=== PATIENT | male | born 1965 | race Caucasian/White ===

== ENCOUNTER 2016-09-13 18:47 | Emergency (ER) | payer BC, OTHER ==
[~2016-09-13] VITALS: Ht 177.8 cm; Wt 99.1 kg
[2016-09-13 18:56] VITALS: TEMP 36.6; Ht 177.8 cm; Wt 99.1 kg
[2016-09-13] MEDS ORDERED: SODIUM CHLORIDE 0.9% 1000ML 1,000 ML IV SCH (19:09)
[2016-09-13] MEDS ORDERED: LABETALOL HCL IV 5 MG/ML 20ML IV STA ×2 (19:09→21:23)
[2016-09-13 19:18] LABS: BASO % 0.6 %; BASO ABS # 0.05 K/uL (0-0.2); COMPLETE YES; EOS % 1.5 %; IG% 0.1 %; LYMPH % 21.6 %; LYMPH ABS # 1.69 K/uL (1.2-3.4); MEAN CELL VOLUME 95.6 fL (80-100); MEAN CORPUSCULAR HEMOGLOBIN 34.4 pg (25-34); MEAN PLATELET VOLUME 9.6 fL (7.4-10.4); MONO % 10.8 %; NEUT % 65.4 %; PLATELET COUNT 229 K/uL (130-400); WHITE BLOOD COUNT 7.81 K/uL (4.8-10.8)
--- NOTE | 2016-09-13 19:24 | EMERGENCY ROOM VISIT NOTE ---
History Report prepared by Jeanette: Dileep Calvillo Under the Supervision of: Dr. Bouchra Hook M.D. First contact with patient: 19:04 Chief Complaint: STROKE SYMPTOMS Stated Complaint: RIGHT LEG WEAKNESS,SLURRED SPEECH Nursing Triage Summary: Patient came from work eating dinner and tried to get up and right leg gave out. left facial droop noted .Last well time 1720. History of Present Illness The patient is a 51 year old male who presents to the Emergency Room with complaints of sudden stroke-like symptoms beginning an hour and a half prior to arrival. As per , the patient had just gotten home from work and was eating dinner. She states that when the patient tried to get up, his right leg gave out and she noticed slurred speech and a left facial droop at 1720. The notes the patient appeared to be fine during the meal. She notes that the patient does appear to be improving slowly. The patient denies a headache. Source of History: patient Onset: hour and a half prior to arrival (1720) Position: other (global) Quality: other (stroke-like symptoms) Timing: other (sudden) Associated Symptoms: No headache Note: Associated symptoms: slurred speech, left facial droop. Review of Systems See HPI for pertinent positives & negatives. A total of 10 systems reviewed and were otherwise negative. Past Medical & Surgical Medical Problems: (1) No pertinent past medical history Family History Diabetes mellitus Hypertension Social History Smoking Status: Never Smoker Marital Status: Occupation Status: employed Current/Historical Medications Scheduled Aspirin (Aspirin Ec), 81 MG PO DAILY Losartan Potassium (Cozaar), 50 MG PO DAILY Multivitamins/Minerals (Mvi With Minerals), 1 TAB PO DAILY Allergies Uncoded Allergies: ASA--NOSE BLEEDS (Allergy, Unknown, 12/18/04) Physical Exam Vital Signs Date Time Temp Pulse Resp B/P Pulse Ox O2 Delivery O2 Flow Rate FiO2 09/13/16 22:45 83 22 168/98 95 09/13/16 22:30 168/98 09/13/16 22:20 82 22 94 Room Air 09/13/16 22:15 163/96 09/13/16 22:05 77 15 95 09/13/16 22:04 163/99 09/13/16 22:00 164/105 09/13/16 21:59 168/102 09/13/16 21:50 81 22 95 4/11/17 21:45 82 26 179/98 93 Room Air 09/13/16 21:36 87 27 94 Room Air 09/13/16 21:30 156/77 09/13/16 21:23 162/97 09/13/16 21:21 92 28 168/109 94 09/13/16 21:15 161/113 09/13/16 21:06 88 19 93 09/13/16 21:01 85 20 169/86 93 Room Air 09/13/16 20:51 170/98 09/13/16 20:50 92 20 94 09/13/16 20:47 176/111 09/13/16 20:45 167/100 09/13/16 20:35 90 26 152/96 09/13/16 20:24 181/108 09/13/16 20:20 91 20 93 09/13/16 20:15 90 22 163/97 94 Room Air 09/13/16 20:00 91 20 150/111 94 09/13/16 19:45 92 18 162/78 94 09/13/16 19:30 92 12 163/94 95 09/13/16 19:27 94 Room Air 09/13/16 19:22 162/87 09/13/16 19:05 95 09/13/16 18:56 36.6 99 16 191/115 94 Room Air Physical Exam Vital signs reviewed. General: Well-appearing male, in no significant distress. HEENT: Mild left nasolabial fold flattening. Deviation of the tongue to the right. No scleral icterus, PERRLA, neck supple. Atraumatic. Cardiovascular: Regular rate and rhythm, no extra sounds. Pulmonary: Clear to auscultation bilaterally, normal work of breathing. Abdomen: Soft, nontender, nondistended, positive bowel sounds. Musculoskeletal: Atraumatic, no peripheral edema. Neurologic: Patient awake alert and oriented x 3, full strength in all 4 extremities. Cranial nerves 2 through 12 grossly intact. Skin: Warm, dry, no rash Medical Decision & Procedures ER Provider Diagnostic Interpretation: Radiology results as stated below per my review and radiologist interpretation: HEAD CT NONCONTRAST CT DOSE: 614.27 mGy.cm HISTORY: Right leg weakness. Slurred speech. Stroke TECHNIQUE: Multiaxial CT images of the head were performed without the use of intravenous contrast. Automated exposure control was utilized for this study. Comparison: None. Findings: The paranasal sinuses and mastoid air cells are clear. The calvarium and skull base are intact. The ventricles and sulci are within normal limits. There is no hematoma, midline shift, or acute infarct. A 1.3 cm dural calcification within the right frontal lobe may represent a calcified meningioma. Impression: No acute intracranial abnormality. Electronically signed by: Keegan Galo M.D. 09/13/2016 7:29 PM CHEST ONE VIEW PORTABLE HISTORY: Slurred speech. Stroke COMPARISON: None. FINDINGS: The lungs are clear. Cardiac silhouette is normal in size. No pleural effusions. No pneumothorax. IMPRESSION: No acute process. Electronically signed by: Keegan Galo M.D. 09/13/2016 7:57 PM HEAD CTA HISTORY: Right leg weakness. Slurred speech. TECHNIQUE: Multiaxial CT images of the head were performed after the intravenous administration of contrast to evaluate the major cerebral vessels. Maximum intensity projection images were also obtained. COMPARISON: Head CT 09/13/2016. FINDINGS: No midline shift or acute hemorrhage identified. Stable 1.3 cm right frontal dural calcification. The calvarium and skull base are intact. Paranasal sinuses and mastoid air cells are clear. The cervical portion of the distal right internal carotid artery is occluded. There is reconstitution of flow within the petrous segment of the right internal carotid artery which demonstrates diminished flow. There is significant diminished flow within the right carotid siphon. There is an abrupt cut off within the superior branch of the right M2 segment of the right MCA. This is best seen on image 126. This is consistent with occlusion of the right M2 segment. The bilateral ACAs, left MCA, bilateral fermenter wine, basilar artery, distal vertebral arteries, and left internal carotid artery are patent. There is mild calcified plaque within the left internal carotid artery. IMPRESSION: 1. The cervical portion of the distal right internal carotid artery is occluded. There is reconstitution of flow within the petrous segment of the right internal carotid artery. However, there is diminished flow within the right intracranial internal carotid artery and the right MCA. 2. There is also complete occlusion of the superior branch of the right MCA just beyond the right MCA bifurcation. Electronically signed by: Keegan Galo M.D. 09/13/2016 8:45 PM Laboratory Results 09/13/16 19:04 Red Blood Count 4.50, Mean Corpuscular Volume 95.6, Mean Corpuscular Hemoglobin 34.4, Mean Corpuscular Hemoglobin Concent 36.0, Mean Platelet Volume 9.6, Neutrophils (%) (Auto) 65.4, Lymphocytes (%) (Auto) 21.6, Monocytes (%) (Auto) 10.8, Eosinophils (%) (Auto) 1.5, Basophils (%) (Auto) 0.6, Neutrophils # (Auto ) 5.10, Lymphocytes # (Auto) 1.69, Monocytes # (Auto) 0.84, Eosinophils # (Auto ) 0.12, Basophils # (Auto) 0.05 09/13/16 19:04 Test 09/13/16 19:04 09/13/16 19:06 09/13/16 21:45 White Blood Count 7.81 K/uL (4.8-10.8) Red Blood Count 4.50 M/uL (4.7-6.1) Hemoglobin 15.5 g/dL (14.0-18.0) Hematocrit 43.0 % (42-52) Mean Corpuscular Volume 95.6 fL (80-100) Mean Corpuscular Hemoglobin 34.4 pg (25-34) Mean Corpuscular Hemoglobin Concent 36.0 g/dl (32-36) Platelet Count 229 K/uL (130-400) Mean Platelet Volume 9.6 fL (7.4-10.4) Neutrophils (%) (Auto) 65.4 % Lymphocytes (%) (Auto) 21.6 % Monocytes (%) (Auto) 10.8 % Eosinophils (%) (Auto) 1.5 % Basophils (%) (Auto) 0.6 % Neutrophils # (Auto) 5.10 K/uL (1.4-6.5) Lymphocytes # (Auto) 1.69 K/uL (1.2-3.4) Monocytes # (Auto) 0.84 K/uL (0.11-0.59) Eosinophils # (Auto) 0.12 K/uL (0-0.5) Basophils # (Auto) 0.05 K/uL (0-0.2) RDW Standard Deviation 44.0 fL (36.4-46.3) RDW Coefficient of Variation 12.7 % (11.5-14.5) Immature Granulocyte % (Auto) 0.1 % Immature Granulocyte # (Auto) 0.01 K/uL (0.00-0.02) Prothrombin Time 11.0 SECONDS (9.0-12.0) Prothromb Time International Ratio 1.0 (0.9-1.1) Activated Partial Thromboplast Time 32.2 SECONDS (21.0-31.0) Partial Thromboplastin Ratio 1.2 Anion Gap 6.0 mmol/L (3-11) Est Creatinine Clear Calc Drug Dose 94.8 ml/min Estimated GFR () 90.2 Estimated GFR (Non- 77.9 BUN/Creatinine Ratio 18.4 (10-20) Bedside Glucose 95 mg/dl (70-99) Calcium Level 9.7 mg/dl (8.5-10.1) Total Creatine Kinase 212 U/L (39-308) Creatine Kinase MB 2.0 ng/ml (0.5-3.6) Creatine Kinase MB Ratio 0.9 (0-3.0) Troponin I < 0.015 ng/ml (0-0.045) Bedside Prothrombin Time INR 1.0 (0.9-1.1) Urine Opiates Screen NEG (NEG) Urine Methadone, Qualitative NEG (NEG) Urine Barbiturates NEG (NEG) Urine Phencyclidine (PCP) Level NEG (NEG) Ur Amphetamine/Methamphetamine NEG (NEG) MDMA (Ecstasy) Screen NEG (NEG) Urine Benzodiazepines Screen NEG (NEG) Urine Cocaine Metabolite NEG (NEG) Urine Marijuana (THC) NEG (NEG) Laboratory results per my review. Medications Administered Medications (Trade) Dose Ordered Sig/Jluis Route Start Time Stop Time Status Last Admin Dose Admin Sodium Chloride (Nss 1000ml) 1,000 ml @ 100 mls/hr Q10H IV 09/13/16 19:09 09/13/16 23:46 DC 09/13/16 19:36 100 MLS/HR Labetalol HCl 10 mg 10 mg NOW STAT IV 09/13/16 19:09 09/13/16 19:12 DC 09/13/16 20:53 10 MG Alteplase, Recombinant 81 mg/ Empty Bag 81 ml @ 81 mls/hr TODAY@2130 ONCE IV 09/13/16 21:30 09/13/16 22:29 DC 09/13/16 21:38 81 MLS/HR Alteplase, Recombinant/ Syringe (Activase Inj/ Syringe) 9 ml @ 9 mls/min TODAY@2124 ONCE IV 09/13/16 21:25 09/13/16 21:26 DC 09/13/16 21:37 9 MLS/MIN Labetalol HCl (Normodyne IV) 10 mg NOW STAT IV 09/13/16 21:23 09/13/16 21:24 DC 09/13/16 21:26 10 MG ECG Indication: other (stroke-like symptoms) Rate (beats per minute): 93 Rhythm: normal sinus Findings: no acute ischemic change, no ectopy ED Course 1902: Past medical records reviewed. The patient was evaluated in room A1. A complete history and physical examination was performed. 1908: Ordered Labetalol HCl 10 mg IV, Sodium Chloride 1,000 ml @ 100 mls/hr IV. 2022: Reevaluated the patient at this time, and he had left nasolabial fold flattening, left arm and leg weakness, and left medical editor weakness. His tongue was more midline. The nurse noted a normal neuro exam approximately thirty minutes ago. 2027: I spoke to Dr. Franklin, [facility] about the patient's case, and he states he will evaluate the patient via Telestroke when he gets back from his CTA scan. 2122: Ordered Normodyne IV 10 mg IV. 2124: Ordered Alteplase Recombinant 9 mg/ Syringe 9 ml @ 9 mls/min IV. 2129: Ordered Alteplase, Recombinant 81 mg/ Empty Bag 81 ml @ 81 mls/hr IV. 2131: I spoke to Dr. Franklin, [facility] about the patient's case, and he recommended TPA and will accept the patient for transfer. It is noted Shawn Gipson is on the way for transfer of the patient to [place]. 2205: Reevaluated and updated the patient and his at this time. Medical Decision Differential diagnosis: Etiologies such as metabolic, infection, hypo/hyperglycemia, electrolyte abnormalities, cardiac sources, intracerebral event, toxicologic, neurologic, as well as others were entertained. This patient was evaluated and appeared to be in some discomfort. IV access was obtained and laboratory work was drawn. On physical exam the patient's symptoms seem to be resolving initially. He had a mild left nasolabial fold flattening. A CT scan of the head was performed and is negative. Patient was hydrated with normal saline solution. At approximately 6 PM the patient's nurse performed a stroke scale that was similar to his initial exam. At 6:30 PM I reevaluated the patient and his right-sided gaze preference became profound. He had extensive left-sided facial droop, weakness and ataxia of the left upper extremity and left lower extremity. Patient was sent back over to CT for a CT angiogram. This study is read as above with extensive clot. Dr. Franklin of neurology. He has reviewed the imaging and examined the patient via WebCam. TPA was recommended and administered after the pros and cons were discussed. The patient did have improvement in his symptoms. He has been life flighted to [facility] for further care. The patient are aware of the findings and plan. They have agreed. Consults Time Called: 2023 Consulting Physician: [facility] Returned Call: 2027 I spoke to [facility] about the patient's case, and he states he will evaluate the patient via Telestroke when he gets back from his CTA scan. Impression Primary Impression: Acute CVA (cerebrovascular accident) Critical Care I have personally spent greater than 75 minutes of critical care time in the direct management of this patient. This includes bedside care, interpretation of diagnostic studies, and testing, discussion with consultants, patient, and family members, and other required patient management activities. This 75 minutes is in excess of all separately billable procedures. Scribe Attestation The scribe's documentation has been prepared under my direction and personally reviewed by me in its entirety. I confirm that the note above accurately reflects all work, treatment, procedures, and medical decision making performed by me. Departure Information Dispostion Transfer Acute Care Facility (Dr. Franklin [facility]) Stroke History Time Last Known Well 1720 on 09/13/2016 Stroke t-PA Criteria Reviewed Meets criteria for t-PA
[2016-09-13 19:27] VITALS: O2SAT 94
--- NOTE | 2016-09-13 19:31 | DIAGNOSTIC IMAGING REPORT ---
HEAD CT NONCONTRAST CT DOSE: 614.27 mGy.cm HISTORY: Right leg weakness. Slurred speech. Stroke TECHNIQUE: Multiaxial CT images of the head were performed without the use of intravenous contrast. Automated exposure control was utilized for this study. Comparison: None. Findings: The paranasal sinuses and mastoid air cells are clear. The calvarium and skull base are intact. The ventricles and sulci are within normal limits. There is no hematoma, midline shift, or acute infarct. A 1.3 cm dural calcification within the right frontal lobe may represent a calcified meningioma. Impression: No acute intracranial abnormality. Electronically signed by: Keegan Galo M.D. 09/13/2016 7:29 PM Dictated Date/Time: 09/13/2016 7:26 PM
[2016-09-13 19:34] LABS: BLOOD UREA NITROGEN 20 mg/dl (7-18); BUN/CREATININE RATIO 18.4 (10-20); CALCIUM 9.7 mg/dl (8.5-10.1); CARBON DIOXIDE 29 mmol/L (21-32); CHLORIDE 109 mmol/L (98-107); GLUCOSE 105 mg/dl (70-99); POTASSIUM 3.9 mmol/L (3.5-5.1); SODIUM 144 mmol/L (136-145)
[2016-09-13 19:39] LABS: CKMB/CK RATIO 0.9 (0-3.0)
[2016-09-13 19:47] LABS: PARTIAL THROMBOPLASTIN RATIO 1.2
--- NOTE | 2016-09-13 19:59 | DIAGNOSTIC IMAGING REPORT ---
CHEST ONE VIEW PORTABLE HISTORY: Slurred speech. Stroke COMPARISON: None. FINDINGS: The lungs are clear. Cardiac silhouette is normal in size. No pleural effusions. No pneumothorax. IMPRESSION: No acute process. Electronically signed by: Keegan Galo M.D. 09/13/2016 7:57 PM Dictated Date/Time: 09/13/2016 7:57 PM
[2016-09-13] MEDS ORDERED: MULT-513 PO (20:05)
[2016-09-13] MEDS ORDERED: ASPI81TA28 PO (20:05)
[2016-09-13] MEDS ORDERED: LOSA50TA6 PO (20:05)
[2016-09-13] MEDS ORDERED: OPTIRAY 320 IV PRN (20:30)
--- NOTE | 2016-09-13 20:47 | DIAGNOSTIC IMAGING REPORT ---
HEAD CTA HISTORY: Right leg weakness. Slurred speech. TECHNIQUE: Multiaxial CT images of the head were performed after the intravenous administration of contrast to evaluate the major cerebral vessels. Maximum intensity projection images were also obtained. COMPARISON: Head CT 09/13/2016. FINDINGS: No midline shift or acute hemorrhage identified. Stable 1.3 cm right frontal dural calcification. The calvarium and skull base are intact. Paranasal sinuses and mastoid air cells are clear. The cervical portion of the distal right internal carotid artery is occluded. There is reconstitution of flow within the petrous segment of the right internal carotid artery which demonstrates diminished flow. There is significant diminished flow within the right carotid siphon. There is an abrupt cut off within the superior branch of the right M2 segment of the right MCA. This is best seen on image 126. This is consistent with occlusion of the right M2 segment. The bilateral ACAs, left MCA, bilateral plant maintenance worker, basilar artery, distal vertebral arteries, and left internal carotid artery are patent. There is mild calcified plaque within the left internal carotid artery. IMPRESSION: 1. The cervical portion of the distal right internal carotid artery is occluded. There is reconstitution of flow within the petrous segment of the right internal carotid artery. However, there is diminished flow within the right intracranial internal carotid artery and the right MCA. 2. There is also complete occlusion of the superior branch of the right MCA just beyond the right MCA bifurcation. Electronically signed by: Keegan Galo M.D. 09/13/2016 8:45 PM Dictated Date/Time: 09/13/2016 8:36 PM
[2016-09-13] MEDS ORDERED: ALTEPLASE, RECOMBINANT INJ 9 MG in SYRINGE 0 ML IV ONE (21:25)
[2016-09-13] MEDS ORDERED: SET 2260-0500 IV ONE (21:30)
[2016-09-13] MEDS ORDERED: ALTEPLASE, RECOMBINANT INJ 81 MG in EMPTY BAG 0 ML IV ONE (21:30)
[2016-09-13 22:22] LABS: BENZODIAZEPINE, URINE NEG (NEG); COCAINE,URINE NEG (NEG); PHENCYCLIDINE, URINE NEG (NEG)
[2016-09-13 22:45] VITALS: BP 168/98; PULSE 83; O2SAT 95
[2017-04-11] MEDS ORDERED: CLOP1TAB15 PO (14:46)
[2017-04-11] MEDS ORDERED: ASPCH81X PO (14:46)
[2017-04-11] MEDS ORDERED: BACL10TA PO (14:46)
[2017-04-11] MEDS ORDERED: METO50TA16 PO (14:46)
[2017-04-11] MEDS ORDERED: LOSA50TA6 PO (14:46)
[2017-04-11] MEDS ORDERED: FLUO20CA35 PO (14:46)
[2017-04-11] MEDS ORDERED: THIA100T11 PO (14:46)
[2017-04-11] MEDS ORDERED: ATOR-24 PO (14:46)
[2017-04-11] MEDS ORDERED: FLV1 PO (14:46)
== END 2016-09-13 22:45 | disposition short-term general hospital (02) ==
LOC: C.EDB 18:49 → C.ED 22:45
DX: I63.9 Cerebral infarction, unspecified (principal); Z79.82 Long term (current) use of aspirin; Z79.899 Other long term (current) drug therapy; Z82.49 Family history of ischemic heart disease and other diseases of the circulatory system; Z83.3 Family history of diabetes mellitus

== ENCOUNTER 2016-11-06 00:15 | Emergency (ER) | payer BC ==
[~2016-11-06] VITALS: Ht 180.3 cm; Wt 89.0 kg
[~2016-11-06 00:15] MED LIST: ASPI81TA28 PO; LOSA50TA6 PO; MULT-513 PO
[2016-11-06 00:28] VITALS: BP 111/67; PULSE 77; TEMP 36.7; O2SAT 93; Ht 180.3 cm; Wt 89.0 kg
[2016-11-06 02:03] LABS: MANUAL MICROSCOPIC REQUIRED? YES; URINE APPEARANCE CLEAR (CLEAR); URINE BILIRUBIN NEG (NEG); URINE COLOR YELLOW; URINE NITRITE NEG (NEG); URINE PH 5.5 (4.5-7.5); URINE SPECIFIC GRAVITY 1.025 (1.000-1.030); UROBILINOGEN NEG (NEG)
[2016-11-06 02:06] LABS: REVIEW REQ? NO
[2016-11-06 02:28] LABS: URINE GRANULAR CAST 0-3 /lpf (0)
[2016-11-06 02:30] LABS: URINE BACTERIA 1+ (NEG)
[2016-11-06 02:31] LABS: ZZUR CULT IF INDIC CLEAN CATCH YES
--- NOTE | 2016-11-06 04:21 | EMERGENCY ROOM VISIT NOTE ---
History First contact with patient: 00:36 Chief Complaint: OTHER COMPLAINT Stated Complaint: IBRAHIM LEAKING History of Present Illness The patient is a 51 year old male who presents to the Emergency Room with complaints of a malfunctioning Ibrahim catheter. The patient was discharged about 12 hours ago from [place] following a stroke and endarterectomy. The patient states that he had multiple urinary retention issues, and a Ibrahim catheter was placed. When the patient [place] home his removed and replaced his catheter. She was able to insert this without difficulty, but notes there was no immediate return of urine. The patient has now gone nearly 3 hours without urine in the Ibrahim catheter. He is not having significant pain at this time. He has not had fever or chills. He rates his current discomfort a 1/10. Review of Systems More than 10 systems were reviewed and otherwise negative with the exception of history of present illness. Past Medical/Surgical History Medical Problems: (1) No pertinent past medical history Family History Diabetes mellitus Hypertension Social History Smoking Status: Never Smoker Marital Status: Occupation Status: employed Current/Historical Medications Scheduled Aspirin (Aspirin Ec), 81 MG PO DAILY Losartan Potassium (Cozaar), 50 MG PO DAILY Multivitamins/Minerals (Mvi With Minerals), 1 TAB PO DAILY Allergies Uncoded Allergies: ASA--NOSE BLEEDS (Allergy, Unknown, 12/18/04) Physical Exam Vital Signs Date Time Temp Pulse Resp B/P (MAP) Pulse Ox O2 Delivery O2 Flow Rate FiO2 11/06/16 00:28 36.7 77 20 111/67 93 Room Air Pain Rating (0-10): 0 Physical Exam VITALS: Vitals are noted on the nurse's note and reviewed by myself. Vital signs stable. GENERAL: Well-developed, well-nourished, white male, who is in no acute distress and resting comfortably. Patient is cooperative with the examination. HEAD: Normocephalic atraumatic. HEART: Regular rate and rhythm without murmurs gallops or rubs. LUNGS: Clear to auscultation bilaterally without wheezes, rales or rhonchi. No retractions or accessory muscle use. ABDOMEN: Normal bowel sounds 4 without significant abdominal tenderness. No distinct suprapubic tenderness. No CVA tenderness. SKIN: The skin was with well healing endarterectomy scar over the right carotid. No drainage or discharge. Medical Decision & Procedures Laboratory Results Test 11/06/16 01:43 Urine Color YELLOW Urine Appearance CLEAR (CLEAR) Urine pH 5.5 (4.5-7.5) Urine Specific Jackson 1.025 (1.000-1.030) Urine Protein 1+ (NEG) Urine Glucose (UA) NEG (NEG) Urine Ketones TRACE (NEG) Urine Occult Blood 3+ (NEG) Urine Nitrite NEG (NEG) Urine Bilirubin NEG (NEG) Urine Urobilinogen NEG (NEG) Urine Leukocyte Esterase TRACE (NEG) Urine RBC 10-30 /hpf (0-4) Urine WBC 10-30 /hpf (0-5) Urine Epithelial Cells 10-20 /lpf (0-5) Urine Bacteria 1+ (NEG) Urine Hyaline Casts 10-30 /lpf (0-5) Urine Granular Casts 0-3 /lpf (0) ED Course Physical exam and history were performed. Nursing notes and EMR were reviewed. Patient appears to have a Ibrahim catheter that is not returning urine. Bladder scan was performed and did show around 200 MLS of fluid. Nursing was able to flush the catheter with 20 mL's of saline, and this did cause a very good return of fluid. The patient was watched for about one hour, and we did repeat this a second time. On the second flesh there were several small clots noted in the urine. The catheter appears to be working appropriately. A sample was sent to the lab for culture. The patient appears well for discharge home and is to follow with his PCP this week. We will contact him if the urine grows out infection. The family was given education and materials to gently flush the catheter at home. They're pleased with plan of care the patient's discomfort was rated 0/10 at the time of departure. The chart was completed utilizing [employer] Voice Recognition Software. Grammatical errors, random word insertions, pronoun errors, and incomplete sentences are an occasional consequence of this system due to software limitations, ambient noise, and hardware issues. Any formal questions or concerns about the content, text, or information contained within the body of this dictation should be directly addressed to the provider for clarification. . Medical Decision Differential diagnosis includes, but is not limited to: UTI, Ibrahim malfunction, and others Impression Primary Impression: Malfunction of Ibrahim catheter Departure Information Dispostion Home / Self-Care Condition GOOD Forms HOME CARE DOCUMENTATION FORM, IMPORTANT VISIT INFORMATION Patient Instructions My [facility] Additional Instructions You were seen and evaluated today on an emergency basis only. This is not a substitute for, or an effort to provide, complete comprehensive medical care. It is not possible to recognize and treat all injuries or illnesses in a single emergency department visit. For this reason it is recommended that you followup with your primary care physician next week for ongoing care and evaluation. Continue your medications as previously prescribed. You are welcome to return to the emergency department anytime with new, worsening, or concerning symptoms.
[2017-04-11] MEDS ORDERED: FLV1 PO (14:46)
[2017-04-11] MEDS ORDERED: ATOR-24 PO (14:46)
[2017-04-11] MEDS ORDERED: FLUO20CA35 PO (14:46)
[2017-04-11] MEDS ORDERED: ASPCH81X PO (14:46)
[2017-04-11] MEDS ORDERED: CLOP1TAB15 PO (14:46)
[2017-04-11] MEDS ORDERED: THIA100T11 PO (14:46)
[2017-04-11] MEDS ORDERED: BACL10TA PO (14:46)
[2017-04-11] MEDS ORDERED: METO50TA16 PO (14:46)
[2017-04-11] MEDS ORDERED: LOSA50TA6 PO (14:46)
== END 2016-11-06 01:48 | disposition home or self-care (01) ==
LOC: C.EDB 00:15
DX: T83.89XA Other specified complication of genitourinary prosthetic devices, implants and grafts, initial encounter (principal); Z79.82 Long term (current) use of aspirin; Z79.899 Other long term (current) drug therapy; Z86.73 Personal history of transient ischemic attack (TIA), and cerebral infarction without residual deficits; Z82.49 Family history of ischemic heart disease and other diseases of the circulatory system; Z83.3 Family history of diabetes mellitus; Y84.6 Urinary catheterization as the cause of abnormal reaction of the patient, or of later complication, without mention of misadventure at the time of the procedure

== ENCOUNTER → 2017-04-13 | Day surgery (SDC) | payer BC ==
[2017-04-11 14:47] VITALS: Ht 180.3 cm; Wt 95.9 kg
[~2017-04-13] VITALS: Ht 180.3 cm; Wt 95.9 kg
[~2017-04-13] MED LIST changes: +ASPCH81X PO; -ASPI81TA28 PO; +ATOR-24 PO; +BACL10TA PO; +BOTULINUM TOXIN TYPE A 100 UNIT VIAL ONE; +CLOP1TAB15 PO; +FLUO20CA35 PO; +FLV1 PO; +METO50TA16 PO; -MULT-513 PO; +SODIUM CHLORIDE 0.9% INJ 10 ML VIAL ONE; +THIA100T11 PO
[2017-04-13 14:21] VITALS: BP 131/84; PULSE 65; TEMP 36.7; O2SAT 94
--- NOTE | 2017-04-13 15:48 | History & Physical Bridge - SC ---
H&P Re-Evaluation Bridge Note: I have examined the patient, reviewed the History & Physical and in the interval since the performance of the History & Physical I have noted the following changes of clinical significance: No changes noted
--- NOTE | 2017-04-13 16:04 | Discharge Instructions ---
Discharge Instructions Date of Service Apr 13, 2017. Visit Reason for Visit: Cerebrovascular Accident With Hemiparesis Discharge Discharge Diagnosis / Problem: left arm tightness Discharge Goals Goal(s): Decrease discomfort, Improve function Activity Recommendations Activity Limitations: resume your previous activity Anesthesia . Post Anesthesia Instructions: If you have had General Anesthesia or IV Sedation: * Do not drive today. * Resume driving when surgeon permits. * Do not make important decisions or sign legal documents today. * Call surgeon for: 1. Temperature elevations greater than 101 degrees F. 2. Uncontrollable pain. 3. Excessive bleeding. 4. Persistent nausea and vomiting. 5. Medication intolerance (nausea, vomiting or rash). * For nausea and vomiting use only clear liquids such as: tea, soda, bouillon until nausea subsides, then gradually increase diet as tolerated. * If you have any concerns or questions, call your surgeon's office. If physician is unavailable and it is an emergency, call 911 or go to the nearest emergency room. . Diet Recommendations Recommended Home Diet: resume previous diet Pending Studies Studies pending at discharge: no Medical Emergencies . Who to Call and When: Medical Emergencies: If at any time you feel your situation is an emergency, please call 911 immediately. . Non-Emergent Contact Non-Emergency issues call your: Specialist . . "Provider Documentation" section prepared by Alberto Lou. .
--- NOTE | 2017-04-13 16:21 | OPERATIVE REPORT ---
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 POSTOPERATIVE DIAGNOSES: Same. PROCEDURES: Left upper extremity Botox injections into the biceps, flexor carpi radialis, and abductor pollicis muscles. 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 His arm is in a flexor synergy pattern. He presents today for Botox injections to try to weaken the flexor tone of the hand by injection into the some of the flexor muscles. PHYSICAL EXAMINATION: Pleasant male, seated comfortably. He has inability to straighten his elbow beyond 90 degrees. He has inability to flex his wrist and his thumb is in abducted position with some increased tone. CONSENT: Verbal and written consent was obtained from the patient. Risks and benefits were reviewed. Risks include possibility of infection and weakness. He wishes to proceed. DESCRIPTION OF PROCEDURE: The patient was seen in the [facility] in his preop room where the procedure was done. He was positively identified and name during a timeout for safety, side was marked and he underwent pressure markings and then cleansed with an alcohol and 95 International Units of Botox was reconstituted with preservative free sterile saline. He then underwent injection with a 25-gauge 1.5-inch needle after negative aspiration first into the left biceps, then the left flexor carpi radialis, and then the left adductor pollicis of the thigh. Injections were well tolerated and he will follow up in the [facility] office in 4 weeks' time. I attest to the content of the Intraoperative Record and any orders documented therein. Any exceptions are noted below. [facility]
== END | disposition home or self-care (01) ==
LOC: X.SURG 13:57
PROVIDERS: ATTEND Physical Medicine & Rehabilitation
DX: I69.351 Hemiplegia and hemiparesis following cerebral infarction affecting right dominant side (principal); G24.8 Other dystonia; I25.10 Atherosclerotic heart disease of native coronary artery without angina pectoris; I10 Essential (primary) hypertension

== ENCOUNTER 2023-05-29 13:57 | Observation (INO) ==
--- OUTSIDE RECORDS SUMMARY | 2023-05-29 14:02 | External Medical Summary ---
Author Name Unknown Address Unknown Organization [id number]:[facility] [place] [address] [place] [address] Laboratory Report Ordering Provider Test Date Status IVONNE GRANT 05/19/2023 08:46:25 Final Observation Date Value Abnormality Reference (Units ) Status MYCODE SPECIMEN-SST 05/19/2023 08:46:25 Freezing of extracted DNA, whole blood and/or serum. Final Performing Location [facility] [place] [address] [place] [address]
--- OUTSIDE RECORDS SUMMARY | 2023-05-29 14:02 | External Medical Summary ---
Author Name Unknown Address Unknown Organization [id number]:LABORATORY [facility] [place], [place] - [address] [place] [address] Laboratory Report Ordering Provider Test Date Status PARUL AQUINO 05/11/2023 09:50:43 Final Observation Date Value Abnormality Reference (Units ) Status LDL, (direct) 05/11/2023 09:50:43 48 <=129 (mg/dL) Final LDL Cholesterol Reference Ra nges (mg/dL):
<70 Target level for high risk ASCVD patient
<100 Optimal for general population
100-129 Near optimal for general population
130-159 Borderline high
160-189 High
>=190 Very high Performing Location LABORATORY [facility] - [address] [place] [address]
--- OUTSIDE RECORDS SUMMARY | 2023-05-29 14:02 | External Medical Summary | Summary of Care ---
Author Name Unknown Organization [facility] Address [address] [place] [facility] [place] [address] Phone [phone] Care Team Providers Care Academic Dean Name Role Phone Lenora Harding MD Primary Care Provid er Reason for Visit * Reason Onset Date Comments Forms Request 05/04/2023 Encounter Details Date Type Department Care Team ([facility] st Contact Info) Description 05/04/[address] [facility] [address] [place] [address] Lenora Harding MD [address] [place] [address] Forms Request Allergies No known active allergiesdocumented as of this encounter (statuses as of 05/08/2023) Medications Medication Sig Dispensed Refills Start Date End Date Status THIAMINE (VITAMIN B-1) 100 MG Tablet Take 1 Tablet by mouth in the morning. 0 Active aspirin enteric coated (ECOTRIN LOW STRENGTH) 81 MG TBECIndications:Essenti al hypertension with goal blood pressure less than 140/90 Take 1 Tab by mouth daily. 100 Tab 3 12/19/2017 Active acetaminophen (TYLENOL) 500 MG Tablet Take by mouth as needed. 0 Active BOTOX 100 units injection every 12 weeks. 0 02/08/2019 Active diphenhydrAMINE HCl 25 MG Oral Tablet Take 1 Tablet by mouth every 6 hours as needed for Itching. 0 Active Losartan Potassium 50 MG Oral Tablet (Cozaar)Indications:Ess ential hypertension with goal blood pressure less than 140/90 Take 1 Tablet by mouth in the morning. 90 Tablet 3 09/16/2022 Active Ezetimibe 10 MG Oral Tablet (Zetia)Indications:Dysl ipidemia, goal LDL below 70,Carotid stenosis, symptomatic, with infarction (HCC),Cerebral atherosclerosis,Fatty liver,History of cardioembolic cerebrovascular accident (CVA) Take 1 Tablet by mouth in the morning. 90 Tablet 3 09/16/2022 Active Folic Acid 1 MG Oral TabletIndications:Cereb rovascular disease, arteriosclerotic, post-stroke TAKE 1 TABLET BY MOUTH EVERY DAY AT 9AM. 90 Tablet 3 09/16/2022 Active Clopidogrel Bisulfate 75 MG Oral Tablet (pLAVix)Indications:Cer ebrovascular disease, arteriosclerotic, post-stroke Take 1 Tablet by mouth in the morning. 90 Tablet 3 09/16/2022 Active Metoprolol Tartrate 50 MG Oral Tablet (Lopressor)Indications: Essential hypertension with goal blood pressure less than 140/90,Cerebrovascular disease, arteriosclerotic, post-stroke TAKE 1 TABLET BY MOUTH EVERY DAY AT 9 A.M. 90 Tablet 3 09/16/2022 Active OneTouch Verio In Vitro Strip (Glucose Blood)Indications:Type 2 diabetes mellitus with hemoglobin A1c goal of less than 7.0% (HCC) USE UP TO FOUR TIMES DAILY FOR BLOOD GLUCOSE TESTING 100 Strip 11 03/03/2023 Active Atorvastatin Calcium 80 MG Oral Tablet (Lipitor) TAKE 1 TABLET BY MOUTH EVERY MORNING 90 Tablet 3 04/07/2023 Active metFORMIN HCl ER 500 MG Oral Tablet Extended Release 24 Hour (Glucophage XR)Indications:Type 2 diabetes mellitus with hemoglobin A1c goal of less than 7.0% (HCC) Take 1 Tablet by mouth in the morning and 1 Tablet before bedtime. 180 Tablet 3 04/29/2023 Active Empagliflozin 25 MG Oral Tablet (Jardiance)Indications: Type 2 diabetes mellitus with hemoglobin A1c goal of less than 7.0% (HCC) Take 1 Tablet by mouth in the morning. 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 03/24/2023 CAD (coronary artery disease) 03/24/2023 Arteriosclerosis of coronary artery 03/24/2023 Anxiety 03/24/2023 Fatty liver 03/16/2022 History of cardioembolic cerebrovascular acciden t (CVA) 03/16/2022 Alcohol abuse 03/16/2022 Left spastic hemiparesis 12/25/2020 Focal dystonia 06/30/2020 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 06/30/2020 Carotid stenosis, symptomatic, with infarction 0 02/19/2018 Alcohol ingestion, 1-4 drinks per day 09/22/2017 Cerebral atherosclerosis 12/30/2016 Left hemiplegia 10/26/2016 Hyperlipidemia 10/26/2016 Adhesive capsulitis of left shoulder 10/26/2016 Obesity 03/03/2016 Overview: bmi= 31.42 03/03/16 documented as of this encounter (statuses as of 05/08/2023) Resolved Problems Problem Noted Date Diagnosed Date Resolved Date MEDICATION USE AGREEMENT 12/14/2016 Overview: 12/14/16 MEDICATION USE AGREEMENT 12/14/201601/2018 Overview: 12/14/[address] 11/07/201609/04 Adjustment disorder with depressed mood 10/26/2016 03/16/2017 Acute pain of left shoulder 10/26/2016 03/16/2017 INFORMATION 03/05/2016 03/12/2018 Overview: 10 year cardiovascular risk of 9.7%, possible lower to 1.9%: Lifetime risk of 50%, possibly lower to 5%. Routine medical exam 03/03/2016 017 Overweight (BMI 25.0-29.9) 02/07/2012 0 10/27/2016 Overview: bmi= 29.69 02/07/12 Need for diphtheria-tetanus- pertussis (Tdap) vaccine 02/07/2012 10/27/2016 Screening for cardiovascular condition 02/07/2012 10/27/2016 Screening for diabetes mellitus 02/07/2012 10/27/2016 Family history of diabetes mellitus 02/07/2012 03/12/2018 Family history of hypertension 02/07/2012 03/12/2018 Family history of ischemic heart disease 02/07/2012 03/12/2018 Elevated blood pressure, situational 02/07/2012 06/02/2016 NONE 03/03/2016 documented as of this encounter (statuses as of 05/08/2023) Immunizations Name Administration Dates Next Due TDAP (age 10 and older)(Boostrix) 02/07/2012 Zoster Vaccine Recombinant (Shingrix) 03/16/2021 ,09/11/2020 documented as of this encounter Social History Tobacco Use Types Packs/Day Years Used Date Smoking Tobacco: Never Smokeless Tobacco: Never Alcohol Use Standard Drinks/Week Comments Yes 0 (1 standard drink = 0.6 oz pur e alcohol) 1 beer per day PHQ-2 Answer Date Recorded PHQ Adult Total Score 0 03/16/2022 Hunger Vital Sign Answer Date Recorded Within the past 12 months, y ou worried that your food would run out before you got the money to buy more. Never true 09/17/19 23 Within the past 12 months, t he food you bought just didn't last and you didn't have money to get more. Never true 09/16/2022 Sex and Gender Information Value Date Recorded Sex Assigned at Male 09/16/2022 7:49 AM EDT Gender Identity Male 09/16/2022 7:49 AM EDT Sexual Orientation Straight 09/16/2022 7: 49 AM EDT Job Start Date Occupation Industry Not on file Not on file Not on file documented as of this encounter Miscellaneous Notes * Telephone Encounter - Charmaine Mtz OSA - 05/08/2023 8:44 AM EST 05/08/23 [employer] paperwork was successfully faxed. Pt was called to p/u paperwork if so desired. Forms were sent to [facility] to be added to pts chart. * Telephone Encounter - Lenora Harding MD - 05/05/2023 5:07 PM EST Please be sure to [facility] form Form signed and submitted to nursing for processing. * Telephone Encounter - Doreen Mak LPN - 05/04/2023 3:26 PM EST Placed forms on Dr's desk * Telephone Encounter - Tanvi Dowd OSA - 05/04/2023 1:11 PM EST Please fill our Forms for [email or web address]. Please fax and call Pt when completed documented in this encounter Plan of Treatment Upcoming Encounters Date Type Department Care Team (Late st Contact Info) Description 05/19/2023 8:00 AM EST Office Visit [facility] [address] [place] [address] Lenora Harding MD [address] [place] [address] 06/14/2023 8:30 AM EST Imaging Vascular Lab, [facility] [address] [place] [address] 2023 8:30 AM EST Office Visit Vascular Surgery, [facility] [address] [place] [address] David Christiansen MD [address] [place] [address] Scheduled Procedures Name Priority Associated Diagnoses Date/Ti me COLONOSCOPY FLEXIBLE PROXIMAL DIAGNOSTIC Recall History of colon polyps Health Maintenance Due Date Last Done Comments Hepatitis B (1 of 3 - 3-dose series) 1966 COVID-19 Vaccine (#1) 1966 Pneumococcal Vaccine: Pediatrics (0 to 5 Years) and At-Risk Patients (6 to 64 Years) (1 - PCV) 1972 HIV Screening 1981 Hepatitis C Screening 1984 DTaP,Tdap,and Td Vaccines (2 - Td or Tdap) 02/06/2022 02/07/2012 Influenza Vaccine (FLU shot) (#1) 2023 03/12/2018 (Declined), 09/22/2017 (Refused) Depression Screening 03/16/2023 03/16/2022, 03/03/20 16 GFR 02/10/2024 02/09/2023, 07/02/2022, 09/14/2021, Additional history exists Albumin/Creatinine Ratio 04/20/2025 04/20/2022 Diabetes Screening 02/09/2026 02/09/2023, 0 02/09/2023, 12/31/2021, Additional history exists COLONOSCOPY-EVERY 5 YRS AGES 18-100 07/19/2027 07/19/2022, 07/19/2022, 04/12/2017, Additional history exists Zoster Vaccines Completed 03/16/2021, 09/11/2020 GARDASIL-HPV IMMUNIZATION SERIES Aged Out No longer eligible based on patient's age to complete this topic MENINGOCOCCAL (MENACTRA/MENVEO) Aged Out No longer eligible based on patient's age to complete this topic documented as of this encounter Medical Devices Not on filedocumented as of this encounter Care Teams Academic Dean Relationship Specialty Start Date End Date Lenora Harding MD [address] [place] [address] PCP - General Family Medicine 12/31/21 documented as of this encounter
--- OUTSIDE RECORDS SUMMARY | 2023-05-29 14:02 | External Medical Summary ---
Author Name Unknown Address Unknown Organization K01:LABORATORY [place] [address] [place] [address] Laboratory Report Ordering Provider Test Date Status PARUL AQUINO 05/19/2023 08:46:25 Final Observation Date Value Abnormality Reference (Units) Status Hepatitis B virus surface Ab [Units/volume] in Serum or Plasma by Immunoassay 05/19/2023 08:46:25 <3.5 (mIU/mL) Final Hepatitis B virus surface Ab [Presence] in Serum by Immunoassay 05/19/2023 08:46:25 Negative Final HEPATITIS B SURFACE ANTIBODY, INTERPRETATION 05/19/2023 08:46:25 NOT immune to Hepatitis B Virus Final POSITIVE: >=11.5 mIU/mL
INDETERMINATE: 8.5-<11.5 mIU/mL
NEGATIVE: <8.5 mIU/mL Performing Location LABORATORY [facility] [place] - [facility] [address]
--- OUTSIDE RECORDS SUMMARY | 2023-05-29 14:02 | External Medical Summary ---
Author Name Unknown Address Unknown Organization K01:LABORATORY [facility] [place] - [address] [facility] [place] [address] Laboratory Report Ordering Provider Test Date Status PARUL AQUINO 05/11/2023 09:50:43 Final Observation Date Value Abnormality Reference (Units ) Status SYNC LEUKOCYTES IN BLOOD BY AUTOMATED COUNT 05/11/2023 09:50:43 11.33 Above high normal 4.00-10.80 (K/uL) Final Segs 05/11/2023 09:50:43 66.5 40.0-75.0 (%) Final Lymphs % 05/11/2023 09:50:43 20.0 18.0-42.0 (%) Final Monos 05/11/2023 09:50:43 8.3 1.0-11.0 (%) Final Eosinophils 05/11/2023 09:50:43 3.5 0.0-6.0 (%) Final Basos 05/11/2023 09:50:43 1.3 0.0-2.0 (%) Final Immature Granulocyte, Percent 05/11/2023 09:50:43 0.4 0.0-2.0 (%) Final Absolute Segs 05/11/2023 09:50:43 7.53 1.80-7.70 (K/uL) Final Lymphs, absolute 05/11/2023 09:50:43 2.27 1.00-4.80 (K/ul) Final Monos, Abs 05/11/2023 09:50:43 0.94 0.00-1.10 (K/uL) Final Eos, Abs 05/11/2023 09:50:43 0.40 0.00-0.70 (K/uL) Final Basos, Abs 05/11/2023 09:50:43 0.15 0.00-0.20 (K/uL) Final Immature Granulocytes, Number 05/11/2023 09:50:43 0.04 0.00-0.20 (K/uL) Final Performing Location LABORATORY [facility] [place] - [address] [facility] [address]
--- OUTSIDE RECORDS SUMMARY | 2023-05-29 14:02 | External Medical Summary | Summary of Care ---
Author Name Unknown Organization [facility] Address [address] [facility] [address] Phone [phone] Care Team Providers Care Library Director Name Role Phone Lenora Harding MD Primary Care Provid er Reason for Visit * Reason Comments Outpatient Testing Encounter Details Date Type Department Care Team (Late st Contact Info) Description 05/19/2023 8:50 AM EST Laboratory Laboratory, [facility] [address] [place] [address] [facility] [address] [place] [address] [employer] Other*[id number]; Type 2 diabetes mellitus with hemoglobin A1c goal of less than 7.0% (HCC); Screening for HIV without presence of risk factors; Elevated liver enzymes; Encounter for hepatitis C screening test for low risk patient; Exposure to blood or body fluid Allergies No known active allergiesdocumented as of this encounter (statuses as of 05/19/2023) Medications Medication Sig Dispensed Refills Start Date [...] EVERY DAY AT 9 A.M. 90 Tablet 09/16/2022 Active OneTouch Verio In Vitro Strip [...] as of this encounter (statuses as of 05/19/2023) Active Problems Problem Noted Date Diagnosed Date [...] as of this encounter (statuses as of 05/19/2023) Resolved Problems Problem Noted Date Diagnosed Date [...] as of this encounter (statuses as of 05/19/2023) Immunizations Name Administration Dates Next Due TDAP (age 10 and older)(Boostrix) 02/07/2012 Zoster Vaccine Recombinant (Shingrix) 03/16/2021 ,09/11/2020 documented as of this encounter Social History Tobacco Use Types Packs/Day Years Used Date Smoking Tobacco: Never Passive Smoke Exposure: Current Smokeless Tobacco: Never Alcohol Use Standard Drinks/Week [...] on file documented as of this encounter Plan of Treatment Upcoming Encounters Date Type Department Care Team (Late st Contact Info) Description 06/14/2023 8:30 AM EST Imaging Vascular Lab, [facility] 2nd Floor, [address] [place] [address] 2023 8:30 AM EST Office Visit Vascular Surgery, [facility] [address] [place] [address] David Christiansen MD [address] [place] [address] 08/21/2023 10:50 AM EDT Office Visit [facility] [address] [place] [phone] Mary Calderón DO [address] [place] [address] Pending Results Name Type Priority Associated Diagnoses Date /Time MYCODE SUBSEQUENT ADULT Lab Routine [employer] Other*[id number] 05/19/2023 8:46 AM EST HEMOGLOBIN A1C Lab Routine Type 2 diabetes mellitus with hemoglobin A1c goal of less than 7.0% (HCC) 05/19/2023 8:46 AM EST HIV ANTIGEN & ANTIBODY SCREEN W/ CONFIRMATION Lab Routine Screening for HIV without presence of risk factors 05/19/2023 8:46 AM EST HEPATITIS C ANTIBODY SCREEN WITH PROGRESSION TO HEPATITIS C RNA QUANTITATIVE Lab Routine Elevated liver enzymes Encounter for hepatitis C screening test for low risk patient Exposure to blood or body fluid 05/19/2023 8:46 AM EST HEPATITIS B SURFACE ANTIBODY Lab Routine Elevated liver enzymes Exposure to blood or body fluid 05/19/2023 8:46 AM EST HEPATITIS B CORE ANTIBODIES IGG AND IGM Lab Routine Elevated liver enzymes Exposure to blood or body fluid 05/19/2023 8:46 AM EST HEPATITIS B SURFACE ANTIGEN Lab Routine Elevated liver enzymes Exposure to blood or body fluid 05/19/2023 8:46 AM EST MYCODE SST1 Lab Routine [employer] Other*[id number] 05/19/2023 8:46 AM EST MYCODE SST2 Lab Routine [employer] Other*[id number] 05/19/2023 8:46 AM EST HEPATITIS C ANTIBODY Lab Routine Elevated liver enzymes Encounter for hepatitis C screening test for low risk patient Exposure to blood or body fluid 05/19/2023 8:46 AM EST HEPATITIS C RNA ADD ON Lab Routine Elevated liver enzymes Encounter for hepatitis C screening test for low risk patient Exposure to blood or body fluid 05/19/2023 8:46 AM EST Scheduled Procedures Name Priority Associated Diagnoses Date/Ti [...] Depression Screening 03/16/2023 03/16/2022, 03/03/20 16 GFR 05/11/2024 05/11/2023, 09/12/2022, 12/31/2021, Additional history exists Albumin/Creatinine Ratio 05/11/2026 05/11/2023, 04/05 Diabetes Screening 05/11/2026 05/11/2023, 0 02/09/2023, 02/09/2023, Additional history exists COLONOSCOPY-EVERY 5 YRS AGES [...] Not on filedocumented as of this encounter Visit Diagnoses Diagnosis [employer] Other*[id number] Type 2 diabetes mellitus with hemoglobin A1c goal of less than 7.0% (HCC) Screening for HIV without presence of risk factors Special screening examination for other specified viral diseases Elevated liver enzymes Nonspecific elevation of levels of transaminase or lactic acid dehydrogenase (LDH) Encounter for hepatitis C screening test for low risk patient Exposure to blood or body fluid Personal history of contact with and (suspected) exposure to potentially hazardous body fluids documented in this encounter Care Teams Library Director Relationship Specialty Start Date End Date Lenora Harding MD [address] [place] [id number] PCP - General Family Medicine 12/31/21 documented as of this encounter
--- OUTSIDE RECORDS SUMMARY | 2023-05-29 14:02 | External Medical Summary | Summary of Care ---
Author Name Unknown Organization [facility] Address [address] [facility] [place] [address] Phone [phone] Care Team Providers Care Emulsion Coater Name Role Phone Lenora Harding MD Primary Care Provid er Reason for Visit * Reason Onset Date Comments Forms Request 05/04/2023 Encounter Details Date Type Department Care Team ([facility] st Contact Info) Description 05/04/2023 Telephone [facility] [address] [place] [address] Lenora Harding MD [address] [place] [address] Forms Request Allergies No known active allergiesdocumented as of this encounter (statuses as of 05/05/2023) Medications Medication Sig Dispensed Refills Start Date [...] as of this encounter (statuses as of 05/05/2023) Active Problems Problem Noted Date Diagnosed Date [...] as of this encounter (statuses as of 05/05/2023) Resolved Problems Problem Noted Date Diagnosed Date [...] as of this encounter (statuses as of 05/05/2023) Immunizations Name Administration Dates Next Due TDAP [...] encounter Miscellaneous Notes * Telephone Encounter - Lenora Harding MD - 05/05/2023 5:07 PM EST Please be sure to [facility] form Form signed and submitted to nursing for processing. * Telephone Encounter - Doreen Mak LPN - 05/04/2023 3:26 PM EST Placed forms on Dr's desk * Telephone Encounter - Tanvi Dowd OSA - 05/04/2023 1:11 PM EST Please fill our Forms for [place] [employer]. Please fax and call Pt when completed documented in this encounter Plan of Treatment Upcoming Encounters Date Type Department Care Team (Late st Contact Info) Description 05/19/2023 8:00 AM EST Office Visit [facility] [address] [place] [phone] Lenora Harding MD [address], [place] [phone] 06/14/2023 8:30 AM EST Imaging Vascular Lab, [facility] [address] [address] 2023 8:30 AM EST Office Visit Vascular Surgery, [address] [address] David Christiansen MD [address] [place], [place] [phone] Scheduled Procedures Name Priority Associated Diagnoses Date/Ti [...] 03/16/2023 03/16/2022, 03/03/20 16 GFR 02/10/2024 02/09/2023, 12/04, 09/14/2021, Additional history exists Albumin/Creatinine Ratio 04/20/2025 [...] filedocumented as of this encounter Care Teams Emulsion Coater Relationship Specialty Start Date End Date Lenora Hadring MD [address] [place] [address] PCP - General Family Medicine 12/31/21 documented as of this encounter
--- OUTSIDE RECORDS SUMMARY | 2023-05-29 14:02 | External Medical Summary | Summary of Care ---
Author Name Unknown Organization [facility] Address [address] [place] [address] Phone [phone] Care Team Providers Care Baseball Pitcher Name Role Phone Lenora Harding MD Primary Care Provid er Reason for Visit * Reason Comments Outpatient Testing Encounter Details Date Type Department Care Team (Late st Contact Info) Description 05/11/2023 9:50 AM EST Laboratory Laboratory, [place] [address] [place] [address] [facility] [address] [place] [address] Dyslipidemia, goal LDL below 70; Essential hypertension with goal blood pressure less than 140/90; Alcohol ingestion, 1-4 drinks per day Allergies No known active allergiesdocumented as of this encounter (statuses as of 05/11/2023) Medications Medication Sig Dispensed Refills Start Date [...] as of this encounter (statuses as of 05/11/2023) Active Problems Problem Noted Date Diagnosed Date [...] as of this encounter (statuses as of 05/11/2023) Resolved Problems Problem Noted Date Diagnosed Date [...] as of this encounter (statuses as of 05/11/2023) Immunizations Name Administration Dates Next Due TDAP [...] Description 05/19/2023 8:00 AM EST Office Visit [facility] [address] [address] Lenora Harding MD [address] [phone] 06/14/2023 8:30 AM EST Imaging Vascular Lab, [facility] 2nd Floor, [place] [address] [place] [id number] 2023 8:30 AM EST Office Visit Vascular Surgery, [facility] [address] [facility] [id number] David Christiansen MD [address] [place] [address] Pending Results Name Type Priority Associated Diagnoses Date /Time COMPREHENSIVE METABOLIC PANEL Lab Routine Dyslipidemia, goal LDL below 70 05/11/2023 9:50 AM EST LIPID PANEL WITH DIRECT LDL IF TG IS HIGH Lab Routine Dyslipidemia, goal LDL below 70 05/11/2023 9:50 AM EST ALBUMIN / CREATININE RATIO, URINE Lab Routine Essential hypertension with goal blood pressure less than 140/90 05/11/2023 9:50 AM EST CBC WITH WBC DIFFERENTIAL AND ANEMIA REFLEX WORKUP Lab Routine Alcohol ingestion, 1-4 drinks per day 05/11/2023 9:50 AM EST ANEMIA CBC Lab Routine Alcohol ingestion, 1-4 drinks per day 05/11/2023 9:50 AM EST DIFFERENTIAL, AUTOMATED Lab Routine Alcohol ingestion, 1-4 drinks per day 05/11/2023 9:50 AM EST ANEMIA REFLEX CHEMISTRY HOLD Lab Routine Alcohol ingestion, 1-4 drinks per day 05/11/2023 9:50 AM EST Scheduled Procedures Name Priority Associated [...] 03/16/2023 03/16/2022, 03/03/20 16 GFR 02/10/2024 02/09/2023, 0702/2022, 09/14/2021, Additional history exists Albumin/Creatinine Ratio 04/20/2025 [...] as of this encounter Visit Diagnoses Diagnosis Dyslipidemia, goal LDL below 70 Other and unspecified hyperlipidemia Essential hypertension with goal blood pressure less than 140/90 Alcohol ingestion, 1-4 drinks per day Other problems related to lifestyle documented in this encounter Care Teams Baseball Pitcher Relationship Specialty Start Date End Date Lenora Harding MD [address] [place] [facility] [place] [id number] PCP - General Family Medicine 12/31/21 documented as of this encounter
--- OUTSIDE RECORDS SUMMARY | 2023-05-29 14:02 | External Medical Summary ---
Author Name Unknown Address Unknown Organization K01:[facility] - [address] [place] [address] Laboratory Report Ordering Provider Test Date Status PARUL AQUINO 05/19/2023 08:46:25 Final Observation Date Value Abnormality Reference (Units ) Status Hep B surface Ag 05/19/2023 08:46:25 Negative Neg ative Final Performing Location [facility] - [address] [place] [address]
--- OUTSIDE RECORDS SUMMARY | 2023-05-29 14:02 | External Medical Summary ---
Author Name Unknown Address Unknown Organization [id number]:LABORATORY [facility] - [address] [place] [address] Laboratory Report Ordering Provider Test Date Status PARUL AQUINO 05/19/2023 08:46:25 Final Observation Date Value Abnormality Reference (Units ) Status HbA1C 05/19/2023 08:46:25 8.2 Above high normal 4. 0-5.6 (%) Final The use of HbA1c to monitor glycemic status is based on normal hemoglobin and HbA composition. This test should not be used in patients with abnormal hemoglobin that affects the half life of the red blood cell or the in vivo glycation rates. Glucose, estimated average 05/19/2023 08:46:25 189 Above high normal <126 (mg/dL) Paramjit mendez Performing Location LABORATORY [facility] - [address] [place] [address]
--- OUTSIDE RECORDS SUMMARY | 2023-05-29 14:02 | External Medical Summary ---
Author Name Unknown Address Unknown Organization [id number]:LABORATORY [facility] - [address] [place] [address] Laboratory Report Ordering Provider Test Date Status PARUL AQUINO 05/11/2023 09:50:43 Final Normal: <30 mg/g creatinine< br/>High: 30-300 mg/g creatinine
Very High: >300 mg/g creatinine
Nephrotic: >2200 mg/g creatinine Observation Date Value Abnormality Reference (Units ) Status Albumin, Urine 05/11/2023 09:50:43 1.28 (mg/dL) Final Creatinine, Urine 05/11/2023 09:50:43 123 (mg/dL) Final Albumin/Creatinine [Mass Ratio] in Urine 05/11/2023 09:50:43 10 <30 (mg/g Creat) Final Performing Location LABORATORY [facility] - [address] [place] [address]
--- OUTSIDE RECORDS SUMMARY | 2023-05-29 14:02 | External Medical Summary ---
Author Name Unknown Address Unknown Organization [id number]:LABORATORY [facility] [place] - [address] [place] [address] Laboratory Report Ordering Provider Test Date Status PARUL AQUINO 05/11/2023 09:50:43 Final Observation Date Value Abnormality Reference (Units ) Status WBC, Total 05/11/2023 09:50:43 11.33 Above high normal 4 .00-10.80 (K/uL) Final RBC 05/11/2023 09:50:43 4.96 4.50-5.25 (M/uL) Final Hemoglobin 05/11/2023 09:50:43 15.4 14.0-16.8 (g/dL) Final Anemia reflex testing trigge rs on a HGB < 12.0 for Females and HGB < 13.0 for Males in accordance with the WHO Anemia Guidelines
Anemia reflex testing triggers on a HGB < 12.0 for Females and HGB < 13.0 for Males in accordance with the WHO Anemia Guidelines HCT 05/11/2023 09:50:43 48.3 40.0-48.4 (%) Final MCV 05/11/2023 09:50:43 97.4 82.0-99.5 (fL) Final MCH 05/11/2023 09:50:43 31.0 27.0-34.0 (pg) Final MCHC 05/11/2023 09:50:43 31.9 32.0-36.0 (g/dL) Final RDW 05/11/2023 09:50:43 12.7 11.5-15.5 (%) Final Platelets 05/11/2023 09:50:43 296 140-400 (K /uL) Final MPV 05/11/2023 09:50:43 10.3 6.6-11.1 ( fL) Final Nucleated erythrocytes/100 leukocytes [Ratio] in Blood by Automated count 05/11/2023 09:50:43 0 <=0 (/100 WBCs) Critical access hospital Performing Location LABORATORY [facility] - [address] [facility] [address]
--- OUTSIDE RECORDS SUMMARY | 2023-05-29 14:02 | External Medical Summary ---
Author Name Unknown Address Unknown Organization [id number]:LABORATORY [facility] - [address] [facility] [place] [address] Laboratory Report Ordering Provider Test Date Status PARUL AQUINO 05/11/2023 09:50:43 Final Observation Date Value Abnormality Reference (Units ) Status BUN 05/11/2023 09:50:43 18 6-20 (mg/dL) Final Creatinine 05/11/2023 09:50:43 1.2 0.6-1.2 (mg/dL) Final Glomerular filtration rate/1.73 sq M.predicted [Volume Rate/Area] in Serum, Plasma or Blood by Creatinine-based formula (CKD-EPI) 05/11/2023 09:50:43 73 >=60 (mL/min) Final eGFR is calculated based on the CKD-EPI 2020 equation SODIUM 05/11/2023 09:50:43 139 135-146 (m mol/L) Final Potassium 05/11/2023 09:50:43 4.4 3.5-5.1 (m mol/L) Final Cl 05/11/2023 09:50:43 100 98-107 (mm ol/L) Final CO2 05/11/2023 09:50:43 27 22-32 (mmo l/L) Final Anion gap 05/11/2023 09:50:43 12 7-15 (mmol /L) Final Glucose 05/11/2023 09:50:43 148 Above high normal 70 -120 (mg/dL) Final Albumin 05/11/2023 09:50:43 4.9 3.8-5.0 (g /dL) Final AST (Aspartate aminotransferase) 05/11/2023 09:50:43 91 Above high normal 10-50 (U/L) Final Alk Phos 05/11/2023 09:50:43 378 Above high normal 35 -130 (U/L) Final Bilirubin, Total 05/11/2023 09:50:43 3.0 Above high no rmal <=1.2 (mg/dL) Final Calcium 05/11/2023 09:50:43 10.2 8.4-10.2 ( mg/dL) Final Protein 05/11/2023 09:50:43 7.8 6.0-8.3 (g /dL) Final ALT (Alanine aminotransferase) 05/11/2023 09:50:43 159 Above high normal 10-50 (U/L) Final Performing Location LABORATORY [facility] - [address] [facility] [address]
--- OUTSIDE RECORDS SUMMARY | 2023-05-29 14:02 | External Medical Summary ---
Author Name Unknown Address Unknown Organization K01:LABORATORY [facility] [place] - [address] [place] [address] Laboratory Report Ordering Provider Test Date Status KENIAPARUL 05/19/2023 08:46:25 Final Observation Date Value Abnormality Reference (Units ) Status Hepatitis B virus core Ab [Presence] in Serum 05/19/2023 08:46:25 Negative Negative Final Performing Location LABORATORY [facility] - [address] [place] [address]
--- OUTSIDE RECORDS SUMMARY | 2023-05-29 14:02 | External Medical Summary | Summary of Care ---
Author Name Unknown Organization [facility] Address [address] [facility] [place] [address] Phone [phone] Care Team Providers Care Oracle Ebs Architect Name Role Phone Lenora Harding MD Primary Care Provid er Encounter Details Date Type Department Care Team ([facility] st Contact Info) Description 05/22/2023 Telephone [facility] [address] [place] [address] Lenora Harding MD [address] [place] [address] Allergies No known active allergiesdocumented as of this encounter (statuses as of 05/22/2023) Medications Medication Sig Dispensed Refills Start Date [...] A DAY 540 Tablet 1 05/01/2023 Active glipiZIDE ER 2.5 MG Oral Tablet Extended Release 24 Hour (glipiZIDE XL)Indications:Type 2 diabetes mellitus with hemoglobin A1c goal of less than 7.0% (HCC),Fatty liver,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 30 minutes before a meal.. 90 Tablet 3 05/19/2023 Active documented as of this encounter (statuses as of 05/22/2023) Active Problems Problem Noted Date Diagnosed Date [...] as of this encounter (statuses as of 05/22/2023) Resolved Problems Problem Noted Date Diagnosed Date [...] as of this encounter (statuses as of 05/22/2023) Immunizations Name Administration Dates Next Due TDAP [...] Miscellaneous Notes * Telephone Encounter - Charmaine Mtz, GABRIELA - 05/22/2023 2:55 PM EST 05/22/23 Rec paperwork from [email or web address] for pt. Insurance requirements for standard wheelchair needs written in chart notes/last office visit notes? Please call [phone] for any questions. Paperwork placed in provider's mail bin. documented in this encounter Plan of Treatment Upcoming Encounters Date Type Department Care Team (Late st Contact Info) Description 06/14/2023 8:30 AM EST [facility] [address] [place] [address] 2023 8:30 AM EST Office Visit Vascular Surgery, [address] [place] [address] David Christiansen MD [address] [place] [address] 08/21/2023 10:50 AM EDT Office Visit [facility] [address] [place] [address] Mary Calderón DO [address] [place] [address] Scheduled Procedures Name Priority Associated Diagnoses Date/Ti me COLONOSCOPY FLEXIBLE PROXIMAL DIAGNOSTIC Recall History of colon polyps Health Maintenance Due Date Last Done Comments Hepatitis B (1 of 3 - 3-dose series) 1965 COVID-19 Vaccine (#1) 1965 Pneumococcal Vaccine: Pediatrics (0 to 5 Years) and At-Risk Patients (6 to 64 Years) (1 - PCV) 1972 DTaP,Tdap,and Td Vaccines (2 - Td or Tdap) 02/06/2022 02/07/2012 Influenza Vaccine (FLU shot) (#1) 2023 03/12/2018 (Declined), 09/22/2017 (Refused) Depression Screening 03/16/2023 03/16/2022, 03/03/20 16 GFR 05/11/2024 05/11/2023, 09/0 12/2022, 12/31/2021, Additional history exists Albumin/Creatinine Ratio 05/11/2026 05/11/2023, 04/05 Diabetes Screening 05/19/2026 05/19/2023, 1 07/12/2022, 02/09/2023, Additional history exists COLONOSCOPY-EVERY 5 YRS [...] filedocumented as of this encounter Care Teams Oracle Ebs Architect Relationship Specialty Start Date End Date Lenora Harding MD [address] [place] [address] PCP - General Family Medicine 12/31/21 documented as of this encounter
--- OUTSIDE RECORDS SUMMARY | 2023-05-29 14:02 | External Medical Summary ---
Author Name Unknown Address Unknown Organization K01:LABORATORY [facility] - [address] [place] [address] Laboratory Report Ordering Provider Test Date Status PARUL AQUINO 05/11/2023 09:50:43 Final Observation Date Value Abnormality Reference (Units ) Status Triglyceride 05/11/2023 09:50:43 209 Above high normal <=174 (mg/dL) Final Triglyceride Reference Range s (mg/dL):
<150 Acceptable
150-174 Borderline high
175-499 High
>=500 Very high Cholesterol 05/11/2023 09:50:43 99 <200 (mg /dL) Final Total Cholesterol Reference Ranges (mg/dL):
<200 Desirable
200-239 Borderline high
>=240 High HDL 05/11/2023 09:50:43 28 Below low normal >39 (mg/dL) Final HDL Cholesterol Reference Ra nges (mg/dL):
>=60 High (Desirable)
<50 Low (Undesirable) For Females
<40 Low (Undesirable) For Males NON-HDL CHOLESTEROL 05/11/2023 09:50:43 71 <=159 (mg/dL) Final Non-HDL Cholesterol Referenc e Range (mg/dL):
<100 Target level for high risk ASCVD patient
<130 Optimal for general population
130-159 Near optimal for general population
160-189 Borderline High
190-219 High
>=220 Very High Performing Location LAB[facility] - [address] [place] [address]
--- OUTSIDE RECORDS SUMMARY | 2023-05-29 14:02 | External Medical Summary ---
Author Name Unknown Address Unknown Organization K01:LABORATORY [facility] [place] [place] - [address] [place] [address] Laboratory Report Ordering Provider Test Date Status PARUL AQUINO 05/19/2023 08:46:25 Final Observation Date Value Abnormality Reference (Units ) Status Hep C Ab 05/19/2023 08:46:25 Negative Negative Final Further HCV quantitative mani ting not performed per protocol. Performing Location LAB[facility]ATORY [facility] - [address] [place] [address]
--- OUTSIDE RECORDS SUMMARY | 2023-05-29 14:02 | External Medical Summary | Summary of Care ---
Author Name Unknown Organization [facility] Address [address] [facility] [place] [address] Phone [phone] Care Team Providers Care Tile Burner Name Role Phone Lenora Harding MD Primary Care Provid er Reason for Visit * Reason Comments Follow Up Follow up Encounter Details Date Type Department Care Team (Late st Contact Info) Description 05/19/2023 8:00 AM EST Office Visit [facility] [address] [place] [address] Lenora Harding MD [address] [place] [address] Type 2 diabetes mellitus with hemoglobin A1c goal of less than 7.0% (HCC)*; Elevated liver enzymes; Encounter for hepatitis C screening test for low risk patient; Screening for HIV without presence of risk factors; Alcohol ingestion, 1-4 drinks per day; Fatty liver; 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); Left spastic hemiparesis (HCC); Left hemiplegia (HCC); Benign meningioma of brain (HCC); Exposure to blood or body fluid Allergies [...] Passive Smoke Exposure: Current Smokeless Tobacco: Never Tobacco Cessation:Counseling Given: Not Answered Alcohol Use Standard Drinks/Week Comments Yes 0 [...] on file documented as of this encounter Last Filed Vital Signs Vital Sign Reading Time Taken Comments Blood Pressure 118/64 05/19/2023 7:53 AM EST Pulse 80 05/19/2023 7:53 AM EST Temperature 35.8 C (96.4 F) 05/19/2023 7:53 AM ES T Respiratory Rate 16 05/19/2023 7:53 AM EST Oxygen Saturation 96% 05/19/2023 7:53 AM EST Inhaled Oxygen Concentration - - Weight 89.8 kg (198 lb) 05/19/2023 7:53 AM EST Height - - Body Mass Index 27.63 09/16/2022 7:49 AM EDT documented in this encounter Progress Notes * Lenora Harding MD - 05/19/2023 8:03 AM EST ASSESSMENT / PLAN: Demar Ocampo is a 57 year old male with PMHx RT MCA CVA 2017 with residual deficits / left sided spastic hemiparesis / 6 beers daily / HTN / dyslipidemia / fatty liver / T2DM - here for return/acute Recent diagnosis of T2DM Only tolerates Metformin 500 bid , higher doses cause GI upset Tolerating addition of jardiance Update labs today Fatty liver Elev LFTs Given his alcohol use is down, unsure why LFTs worsening 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 Screenings/anticipatory guidance reviewed include if applicable nutrition, family planning/contraception, physical activity, healthy weight, injury prevention, misuse of tobacco, alcohol and drugs, sexual behavior and STDs, dental health, mental health, immunizations, age appropriate screenings: next colonoscopy 2027 (5 yr recall) Due for HIV / Hep C screen - order placed If applicable Starting age 19: Screening for Cholesterol every five years beginning at 20 years of age, chlamydiafor sexually active women under 25 years of age, HIV Starting age 40: Screening for Cholesterol, diabetes, colorectal cancer beginning at 50 years, HIV Follow Up: Return for Labs 2-5 Days Before Next Visit, Labs Today. | For: Labs 2-5 Days Before NextVisit, Labs Today | Check-out note: Labs today Labs in 1 month Labs bef next visit in 6 mo Type 2 diabetes mellitus with hemoglobin A1c goal of less than 7.0% ([facility]) (Primary) - HEMOGLOBIN A1C; Future; Expected date: 05/19/2023 - HEMOGLOBIN A1C; Future; Expected date: 11/18/2023 - COMPREHENSIVE METABOLIC PANEL; Future; Expected date: 11/18/2023 - glipiZIDE ER 2.5 MG Oral Tablet Extended Release 24 Hour (glipiZIDE XL); Take 1 Tablet by mouth in the morning. 30 minutes before a meal.. Elevated liver enzymes - HEPATITIS C ANTIBODY SCREEN WITH PROGRESSION TO HEPATITIS C RNA QUANTITATIVE; Future; Expected date: 05/19/2023 - HEPATITIS B SURFACE ANTIBODY; Future; Expected date: 05/19/2023 - HEPATITIS B CORE ANTIBODIES IGG AND IGM; Future; Expected date: 05/19/2023 - COMPREHENSIVE METABOLIC PANEL; Future; Expected date: 06/19/2023 - HEPATITIS B SURFACE ANTIGEN; Future; Expected date: 05/19/2023 Encounter for hepatitis C screening test for low risk patient - HEPATITIS C ANTIBODY SCREEN WITH PROGRESSION TO HEPATITIS C RNA QUANTITATIVE; Future; Expected date: 05/19/2023 Screening for HIV without presence of risk factors - HIV ANTIGEN & ANTIBODY SCREEN W/ CONFIRMATION; Future; Expected date: 05/19/2023 Alcohol ingestion, 1-4 drinks per day - COMPREHENSIVE METABOLIC PANEL; Future; Expected date: 06/19/2023 Fatty liver - COMPREHENSIVE METABOLIC PANEL; Future; Expected date: 06/19/2023 - glipiZIDE ER 2.5 MG Oral Tablet Extended Release 24 Hour (glipiZIDE XL); Take 1 Tablet by mouth in the morning. 30 minutes before a meal.. 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 30 minutes before a meal.. Left spastic hemiparesis (HCC) - DURABLE MEDICAL EQUIPMENT Left hemiplegia (HCC) - DURABLE MEDICAL EQUIPMENT Benign meningioma of brain (HCC) - DURABLE MEDICAL EQUIPMENT Exposure to blood or body fluid - HEPATITIS C ANTIBODY SCREEN WITH PROGRESSION TO HEPATITIS C RNA QUANTITATIVE; Future; Expected date: 05/19/2023 - HEPATITIS B SURFACE ANTIBODY; Future; Expected date: 05/19/2023 - HEPATITIS B CORE ANTIBODIES IGG AND IGM; Future; Expected date: 05/19/2023 - HEPATITIS B SURFACE ANTIGEN; Future; Expected date: 05/19/2023 Follow Up: Return for Labs 2-5 Days Before Next Visit, Labs Today. | For: Labs 2-5 Days Before NextVisit, Labs Today | Check-out note: Labs today Labs in 1 month Labs bef next visit in 6 mo If needed, prefers contact by: Ok to leave message on phone: SUBJECTIVE: Nursing Notes: Doreen Mak LPN 05/19/23 0755 Signed Chief Complaint Patient presents with Follow Up Follow up HPI: Demar Cisneros Terrence is a 57 year old male. Here for recheck. Cut back alcohol to one drink every other day Left great toe improved after abx 02/17/2023 VISIT WEIGHT TREND Weight 223 lb 3.2 oz 05/19/2023 VISIT WEIGHT TREND Weight 198 lb Reviewed sources 1- Patient Active Problem List Diagnosis Code Hypertension I10 Obesity E66.9 Left hemiplegia (HCC) G81.94 Hyperlipidemia E78.5 Adhesive capsulitis of left shoulder M75.02 Cerebral atherosclerosis I67.2 Alcohol ingestion, 1-4 drinks per day Z78.9 Carotid stenosis, symptomatic, with infarction (HCC) I63.239 Fatty liver K76.0 History of cardioembolic cerebrovascular accident (CVA) Z86.73 Alcohol abuse F10.10 Left spastic hemiparesis (HCC) G81.14 Benign meningioma of brain (HCC) D32.0 History of tobacco use Z87.891 Focal dystonia G24.8 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 aspirin enteric coated (ECOTRIN LOW STRENGTH) 81 MG TBEC Take 1 Tab by mouth daily. 100 Tab 3 acetaminophen (TYLENOL) 500 MG Tablet Take by mouth as needed. diphenhydrAMINE HCl 25 MG Oral Tablet Take 1 Tablet by mouth every 6 hours as needed for Itching. Losartan Potassium 50 MG Oral Tablet (Cozaar) Take 1 Tablet by mouth in the morning. 90 Tablet 3 Ezetimibe 10 MG Oral Tablet (Zetia) Take 1 Tablet by mouth in the morning. 90 Tablet 3 Folic Acid 1 MG Oral Tablet TAKE 1 TABLET BY MOUTH EVERY DAY AT 9AM. 90 Tablet 3 Clopidogrel Bisulfate 75 MG Oral Tablet (pLAVix) Take 1 Tablet by mouth in the morning. 90 Tablet 3 Metoprolol Tartrate 50 MG Oral Tablet (Lopressor) TAKE 1 TABLET BY MOUTH EVERY DAY AT 9 A.M. 90 Tablet 3 OneTouch Verio In Vitro Strip (Glucose Blood) USE UP TO FOUR TIMES DAILY FOR BLOOD GLUCOSE TESTING 100 Strip 11 Atorvastatin Calcium 80 MG Oral Tablet (Lipitor) TAKE 1 TABLET BY MOUTH EVERY MORNING 90 Tablet 3 metFORMIN HCl ER 500 MG Oral Tablet Extended Release 24 Hour (Glucophage XR) Take 1 Tablet by mouthin the morning and 1 Tablet before bedtime. 180 Tablet 3 Empagliflozin 25 MG Oral Tablet (Jardiance) Take 1 Tablet by mouth in the morning. 90 Tablet 3 Baclofen 10 MG Oral Tablet (Lioresal) TAKE 1 AND 1/2 TABLETS BY MOUTH FOUR TIMES A DAY 540 Tablet 1 glipiZIDE ER 2.5 MG Oral Tablet Extended Release 24 Hour (glipiZIDE XL) Take 1 Tablet by mouth in the morning. 30 minutes before a meal.. 90 Tablet 3 BOTOX 100 units injection every 12 weeks. No current facility-administered medications for this visit. OBJECTIVE: BP 118/64 | Pulse 80 | Temp 35.8 C (96.4 F) (Infrared ) | Resp 16 | Wt 89.8 kg (198 lb) | SpO2 96% | BMI 27.63 kg/m | BSA 2.12 m Vitals reviewed and is normotensive / afebrile / and not tachycardic General: No acute distress. Neuro: Alert Pleasant & interactive. Respiratory: Good inspiratory effort, no labored breathing. CTAB CV: RRR no M R G MSK: left great toe with no erythema or tenderness. Nail in tact HEENT: Conjunctivae appear clear. No swelling noted face or lips. Skin: No rash visible on exposed skin areas, normal coloration & appears dry. Psych: Normal affect. Fluent speech. Lenora Harding MD [facility] [address] [facility] [id number] There are no Patient Instructions on file for this visit. documented in this encounter Nursing Notes * Doreen Mak LPN - 05/19/2023 7:50 AM EST Chief Complaint Patient presents with Follow Up Follow up documented in this encounter Plan of Treatment Upcoming Encounters Date Type Department Care Team (Late st Contact Info) Description 06/14/2023 8:30 AM EST Imaging Vascular Lab, [facility] [address] [address] 2023 8:30 AM EST Office Visit Vascular Surgery, [address] [address] David Christiansen MD [address] [place] [address] 08/21/2023 10:50 AM EDT Office Visit [facility] [address] [place] [id number] Mary Calderón DO [address] [place] [address] Pending Results Name Type Priority Associated Diagnoses Date /Time HEPATITIS C ANTIBODY SCREEN WITH PROGRESSION TO HEPATITIS C RNA QUANTITATIVE Lab Routine Elevated liver enzymes Encounter for hepatitis C screening test for low risk patient Exposure to blood or body fluid 05/19/2023 8:46 AM EST Scheduled Orders Name Type Priority Associated Diagnoses Orde r Schedule HEMOGLOBIN A1C Lab Routine Type 2 diabetes mellitus with hemoglobin A1c goal of less than 7.0% (HCC) Expected: 11/18/2023 (Approximate), Expires: 06/19/2024 COMPREHENSIVE METABOLIC PANEL Lab Routine Type 2 diabetes mellitus with hemoglobin A1c goal of less than 7.0% (HCC) Expected: 11/18/2023 (Approximate), Expires: 06/19/2024 HEPATITIS C ANTIBODY SCREEN WITH PROGRESSION TO HEPATITIS C RNA QUANTITATIVE Lab Routine Elevated liver enzymes Encounter for hepatitis C screening test for low risk patient Exposure to blood or body fluid Expected: 05/19/2023 (Approximate), Expires: 05/18/2024 COMPREHENSIVE METABOLIC PANEL Lab Routine Elevated liver enzymes Alcohol ingestion, 1-4 drinks per day Fatty liver Expected: 06/19/2023, Expires: 06/19/2024 Scheduled Procedures Name Priority Associated Diagnoses Date/Ti [...] history exists Zoster Vaccines Completed 03/16/2021, 09/11/2020 HIV Screening Completed 05/19/2023 Hepatitis C Screening Completed 05/19/2023 GARDASIL-HPV IMMUNIZATION SERIES Aged Out No longer eligible based on patient's age to complete this topic MENINGOCOCCAL (MENACTRA/MENVEO) Aged Out No longer eligible based on patient's age to complete this topic documented as of this encounter Medical Devices Not on filedocumented as of this encounter Results * HEPATITIS B SURFACE ANTIGEN (05/19/2023 8:46 AM EST) Hepatitis B Surface Antigen Negative Negative 05/19/2023 4:36 PM EST [facility] Blood Venous blood specimen / Unknown Venipuncture / Unknown 05/19/2023 8:46 AM EST 05/19/2023 8:50 AM EST Lenora Harding MD LAB BLOOD OR DERABLES Performing Organization Address City/[facility]/ZIP Co de Phone Number LAB[facility]ATORY [facility] [address] [place] [address] * HEPATITIS B CORE ANTIBODIES IGG AND IGM (05/19/2023 8:46 AM EST) Pathologist [facility] Hepatitis B Core Antibodies IgG and IgM Negative Negative 05/19/2023 4:36 PM EST LABORATORY C Blood Venous blood specimen / Unknown Venipuncture / Unknown 05/19/2023 8:46 AM EST 05/19/2023 8:50 AM EST Lenora Harding MD LAB BLOOD OR DERABLES Performing Organization Address City/[facility]/ZIP Co de Phone Number [facility] [address] [place] [address] * HEPATITIS B SURFACE ANTIBODY (05/19/2023 8:46 AM EST) Hepatitis B Surface Antibody, Quantitative <3.5 mIU/mL 05/19/2023 4:36 PM EST [facility] Hepatitis B Surface Antibody, Qualitative Negative 05/19/2023 4:36 PM EST [facility] Hepatitis B Surface Antibody, Interpretation NOT immune to Hepatitis B Virus 05/19/2023 4:36 PM EST [facility] Comment: POSITIVE: >=11.5 mIU/mL INDETERMINATE: 8.5-<11.5 mIU/mL NEGATIVE: <8.5 mIU/mL Blood Venous blood specimen / Unknown Venipuncture / Unknown 05/19/2023 8:46 AM EST 05/19/2023 8:50 AM EST Lenora Harding MD LAB BLOOD OR DERABLES Performing Organization Address [facility] Phone Number LAB[facility]ATORY [place] [address] [place] [address] * HIV ANTIGEN & ANTIBODY SCREEN W/ CONFIRMATION (05/19/2023 8:46 AM EST) Pathologist [facility] HIV Antigen & Antibody Negative Negative 05/19/2023 4:36 PM EST [facility] Comment:Negative HIV-1/2 ant igen and antibody screening tset results usually indicate the absence of HIV-1 and HIV-2 infection. However, such negative results do not rule-out acute HIV infection. If acute HIV-1 infection is highly suspected, it is recommended that a specimen be submitted for detection of HIV-1 RNA. Blood Venous blood specimen / Unknown Venipuncture / Unknown 05/19/2023 8:46 AM EST 05/19/2023 8:50 AM EST Lenora Harding MD LAB BLOOD OR DERABLES Performing Organization Address [facility] Phone Number LAB[facility]ATORY [place] [address] [place] [address] * (ABNORMAL) HEMOGLOBIN A1C (05/19/2023 8:46 AM EST) Pathologist [facility] Hemoglobin A1C 8.2(H) 4.0 - 5.6 % 05/19/2023 3:53 PM EST [facility] Comment:The use of HbA1c to monitor glycemic status is based on normal hemoglobin and HbA composition. This test should not be used in patients with abnormal hemoglobin that affects the half life of the red blood cell or the in vivo glycation rates. Estimated Average Glucose 189(H) <126 mg/dL 05/19/2023 3:53 PM EST [facility] Blood Venous blood specimen / Unknown Venipuncture / Unknown 05/19/2023 8:46 AM EST 05/19/2023 8:50 AM EST Lenora Harding MD LAB BLOOD OR DERABLES [facility] [address] [place] [address] documented in this encounter Visit Diagnoses Diagnosis Type 2 diabetes mellitus with hemoglobin A1c goal of less than 7.0% (HCC)- Primary Elevated liver enzymes Nonspecific elevation of levels of transaminase or lactic acid dehydrogenase (LDH) Encounter for hepatitis C screening test for low risk patient Screening for HIV without presence of risk factors Special screening examination for other specified viral diseases Alcohol ingestion, 1-4 drinks per day Other problems related to lifestyle Fatty liver Other chronic nonalcoholic liver disease 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) Cerebral embolism with cerebral infarction Left spastic hemiparesis (HCC) Spastic hemiplegia affecting unspecified side Left hemiplegia (HCC) Hemiplegia, unspecified, affecting unspecified side Benign meningioma of brain (HCC) Benign neoplasm of cerebral meninges Exposure to blood or body fluid Personal history of contact with and (suspected) exposure to potentially hazardous body fluids documented in this encounter Care Teams Tile Burner Relationship Specialty Start Date End Date Lenora Harding MD [address] [place] [address] PCP - General Family Medicine 12/31/21 documented as of this encounter"
--- OUTSIDE RECORDS SUMMARY | 2023-05-29 14:03 | External Medical Summary ---
Author Name Unknown Address Unknown Organization K01:LABORATORY [facility] - [address] [facility] [address] Laboratory Report Ordering Provider Test Date Status 02/09/2023 08:36:59 Final Observation Date Value Abnormality Reference (Units ) Status HbA1C 02/09/2023 08:36:59 9.5 Above high normal 4. 0-5.6 (%) Final The use of HbA1c to monitor glycemic status is based on normal hemoglobin and HbA composition. This test should not be used in patients with abnormal hemoglobin that affects the half life of the red blood cell or the in vivo glycation rates. Glucose, estimated average 02/09/2023 08:36:59 226 Above high normal <126 (mg/dL) Paramjit mendez Performing Location LABORATORY [facility] - [address] [facility] [address]
--- OUTSIDE RECORDS SUMMARY | 2023-05-29 14:03 | External Medical Summary | Summary of Care ---
Author Name Unknown Organization [facility] Address [address] [place] [address] Phone [phone] Care Team Providers Care Drop Wire Builder Name Role Phone Kenia Teran MD Primary Care Provid er Reason for Visit * Reason Comments eRx-Medication Refill Encounter Details Date Type Department Care Team ([facility] st Contact Info) Description 04/06/2023 Refill [facility] [address] [place] [address] Kenia Teran MD [address] [place] [address] Allergies No known active allergiesdocumented as of this encounter (statuses as of 04/07/2023) Medications Medication Sig Dispensed Refills Start Date End Date Status THIAMINE (VITAMIN B-1) 100 MG Tablet Take 1 Tablet by mouth in the morning. 0 Active aspirin enteric coated (ECOTRIN LOW STRENGTH) 81 MG TBECIndications:Esse ntial hypertension with goal blood pressure less than 140/90 Take 1 Tab by mouth daily. 100 Tab 3 12/19/2017 Active acetaminophen (TYLENOL) 500 MG Tablet Take by mouth as needed. 0 Active BOTOX 100 units injection every 12 weeks. 0 02/08/2019 Active diphenhydrAMINE HCl 25 MG Oral Tablet Take 1 Tablet by mouth every 6 hours as needed for Itching. 0 Active Baclofen 10 MG Oral Tablet (Lioresal)Indication s:Left hemiplegia (HCC),Spasm of muscle TAKE 1 AND 1/2 TABLETS BY MOUTH FOUR TIMES A DAY 540 Tablet 1 08/22/2022 Active Losartan Potassium 50 MG Oral Tablet (Cozaar)Indications: Essential hypertension with goal blood pressure less than 140/90 Take 1 Tablet by mouth in the morning. 90 Tablet 3 09/16/2022 Active Ezetimibe 10 MG Oral Tablet (Zetia)Indications:D yslipidemia, goal LDL below 70,Carotid stenosis, symptomatic, with infarction (HCC),Cerebral atherosclerosis,Fatt y liver,History of cardioembolic cerebrovascular accident (CVA) Take 1 Tablet by mouth in the morning. 90 Tablet 3 09/16/2022 Active Folic Acid 1 MG Oral TabletIndications:Ce rebrovascular disease, arteriosclerotic, post-stroke TAKE 1 TABLET BY MOUTH EVERY DAY AT 9AM. 90 Tablet 3 09/16/2022 Active Clopidogrel Bisulfate 75 MG Oral Tablet (pLAVix)Indications: Cerebrovascular disease, arteriosclerotic, post-stroke Take 1 Tablet by mouth in the morning. 90 Tablet 3 09/16/2022 Active Metoprolol Tartrate 50 MG Oral Tablet (Lopressor)Indicatio ns:Essential hypertension with goal blood pressure less than 140/90,Cerebrovascul ar disease, arteriosclerotic, post-stroke TAKE 1 TABLET BY MOUTH EVERY DAY AT 9 A.M. 90 Tablet 3 09/16/2022 Active metFORMIN HCl ER 500 MG Oral Tablet Extended Release 24 Hour (Glucophage XR)Indications:Type 2 diabetes mellitus with hemoglobin A1c goal of less than 7.0% (HCC) Take 2 Tablets by mouth in the morning and 2 Tablets before bedtime. 360 Tablet 3 02/17/2023 Active OneTouch Verio In Vitro Strip (Glucose Blood)Indications:Ty pe 2 diabetes mellitus with hemoglobin A1c goal of less than 7.0% (HCC) USE UP TO FOUR TIMES DAILY FOR BLOOD GLUCOSE TESTING 100 Strip 11 03/03/2023 Active Atorvastatin Calcium 80 MG Oral Tablet (Lipitor) TAKE 1 TABLET BY MOUTH EVERY MORNING 90 Tablet 3 04/07/2023 Active Atorvastatin Calcium 80 MG Oral Tablet (Lipitor) Take by mouth 1 Tablet in the morning. 90 Tablet 3 03/18/2022 3 Discontinued documented as of this encounter (statuses as of 04/07/2023) Active Problems Problem Noted Date Diagnosed Date [...] as of this encounter (statuses as of 04/07/2023) Resolved Problems Problem Noted Date Diagnosed Date [...] as of this encounter (statuses as of 04/07/2023) Immunizations Name Administration Dates Next Due TDAP (age 10 and older)(Boostrix) 02/07/2012 Zoster Vaccine Recombinant (Shingrix) 03/16/2021 ,09/11/2020 documented as of this encounter Social History Tobacco Use Types Packs/Day Years Used Date Smoking Tobacco: Never Smokeless Tobacco: Never Alcohol Use Standard Drinks/Week Comments Yes 0 (1 standard drink = 0.6 oz pur e alcohol) 1 beer per day Hunger Vital Sign Answer Date Recorded Within [...] encounter Miscellaneous Notes * Telephone Encounter - Deepika Dinh RPh - 04/07/2023 10:20 AM EDTSigned Prescriptions: Disp Refills Atorvastatin Calcium 80 MG Oral Tablet (Li*90 Tab*3 Sig: TAKE 1 TABLET BY MOUTH EVERY MORNINGAuthorizing Provider: KENIA TERAN User: DEEPIKA DINH documented in this encounter Plan of Treatment Upcoming Encounters Date Type Department Care Team (Late st Contact Info) Description 05/19/2023 8:00 AM EST Office Visit [facility] [place] [address] [place] [phone] Kenia Teran MD [address] [place] [facility] [place] [address] 06/14/2023 8:30 AM EST Imaging Vascular Lab, [facility] 2nd Floor, [place] [address] [place] [address] 2023 8:30 AM EST Office Visit Vascular Surgery, [facility] [address] [facility] [place] [place] [address] David Christiansen MD [address] [place] [address] Scheduled Procedures Name Priority Associated Diagnoses Date/Ti [...] filedocumented as of this encounter Care Teams Drop Wire Builder Relationship Specialty Start Date End Date Kenia Teran MD [address] [place] [facility] [place] [address] PCP - General Family Medicine 12/31/21 documented as of this encounter
--- OUTSIDE RECORDS SUMMARY | 2023-05-29 14:03 | External Medical Summary | Summary of Care ---
Author Name Unknown Organization [facility] Address [address] [place] [address] Phone [phone] Care Team Providers Care Sterile Preparation Technician Name Role Phone Lenora Harding MD Primary Care Provid er Reason for Visit * Reason Comments Re-Check Encounter Details Date Type Department Care Team Description 02/17/2023 Office Visit [facility] [address] [place] [address] October, Rich Benz MD [address] [place] [address] Dyslipidemia, goal LDL below 70*; Type 2 diabetes mellitus with hemoglobin A1c goal of less than 7.0% (HCC); Essential hypertension with goal blood pressure less than 140/90; Cerebral atherosclerosis; Left hemiplegia (HCC) Allergies No known active allergiesdocumented as of this encounter (statuses as of 02/17/2023) Medications Medication Sig Dispensed Refills Start Date End Date Status THIAMINE (VITAMIN B-1) 100 MG Tablet Take 1 Tablet by mouth in the morning. 0 Active aspirin enteric coated (ECOTRIN LOW STRENGTH) 81 MG TBECIndications:Essen tial hypertension with goal blood pressure less than 140/90 Take 1 Tab by mouth daily. 100 Tab 3 12/19/2017 Active acetaminophen (TYLENOL) 500 MG Tablet Take by mouth as needed. 0 Active BOTOX 100 units injection every 12 weeks. 0 02/08/2019 Active diphenhydrAMINE HCl 25 MG Oral Tablet Take 1 Tablet by mouth every 6 hours as needed for Itching. 0 Active Atorvastatin Calcium 80 MG Oral Tablet (Lipitor) Take by mouth 1 Tablet in the morning. 90 Tablet 3 03/18/2022 Active Baclofen 10 MG Oral Tablet (Lioresal)Indications :Left hemiplegia (HCC),Spasm of muscle TAKE 1 AND 1/2 TABLETS BY MOUTH FOUR TIMES A DAY 540 Tablet 1 08/22/2022 Active Losartan Potassium 50 MG Oral Tablet (Cozaar)Indications:E ssential hypertension with goal blood pressure less than 140/90 Take 1 Tablet by mouth in the morning. 90 Tablet 3 09/16/2022 Active Ezetimibe 10 MG Oral Tablet (Zetia)Indications:Dy slipidemia, goal LDL below 70,Carotid stenosis, symptomatic, with infarction (HCC),Cerebral atherosclerosis,Fatty liver,History of cardioembolic cerebrovascular accident (CVA) Take 1 Tablet by mouth in the morning. 90 Tablet 3 09/16/2022 Active Folic Acid 1 MG Oral TabletIndications:Cer ebrovascular disease, arteriosclerotic, post-stroke TAKE 1 TABLET BY MOUTH EVERY DAY AT 9AM. 90 Tablet 3 09/16/2022 Active Clopidogrel Bisulfate 75 MG Oral Tablet (pLAVix)Indications:C erebrovascular disease, arteriosclerotic, post-stroke Take 1 Tablet by mouth in the morning. 90 Tablet 3 09/16/2022 Active Metoprolol Tartrate 50 MG Oral Tablet (Lopressor)Indication s:Essential hypertension with goal blood pressure less than 140/90,Cerebrovascula r disease, arteriosclerotic, post-stroke TAKE 1 TABLET BY MOUTH EVERY DAY AT 9 A.M. 90 Tablet 3 09/16/2022 Active OneTouch Verio In Vitro Strip (Glucose Blood)Indications:Typ e 2 diabetes mellitus with hemoglobin A1c goal of less than 7.0% (HCC) Use up to 4 times daily for blood glucose testing. 100 Strip 0 02/08/2023 Active metFORMIN HCl ER 500 MG Oral Tablet Extended Release 24 Hour (Glucophage XR)Indications:Type 2 diabetes mellitus with hemoglobin A1c goal of less than 7.0% (HCC) Take 2 Tablets by mouth in the morning and 2 Tablets before bedtime. 360 Tablet 3 02/17/2023 Active metFORMIN HCl ER 500 MG Oral Tablet Extended Release 24 Hour (Glucophage XR)Indications:Type 2 diabetes mellitus with hemoglobin A1c goal of less than 7.0% (HCC) Take 1 Tablet by mouth in the morning. 30 Tablet 0 02/08/2023 3 Discontinue d(Refill) documented as of this encounter (statuses as of 02/17/2023) Active Problems Problem Noted Date Fatty liver 03/16/2022 History of cardioembolic cerebrovascular accident (CVA) 03/16/2022 Alcohol abuse 03/16/2022 Carotid stenosis, symptomatic, with infa rction 02/19/2018 Alcohol ingestion, 1-4 drinks per day Cerebral atherosclerosis 12/30/2016 Left hemiplegia 10/26/2016 Dyslipidemia, goal LDL below 70 10/27/19 17 Adhesive capsulitis of left shoulder Essential hypertension with goal blood p ressure less than 140/90 documented as of this encounter (statuses as of 02/17/2023) Resolved Problems Problem Noted Date Resolved Date MEDICATION USE AGREEMENT 12/14/2016 018 Overview: 12/14/16 MEDICATION USE AGREEMENT 12/14/2016 018 Overview: 12/14/[address] 11/07/2016 09/23/19 18 Adjustment disorder with depressed mood 10/27/19 17 03/16/2017 Acute pain of left shoulder 10/26/201603/05 INFORMATION 03/05/2016 03/12/2018 Overview: 10 year cardiovascular risk of 9.7%, possible lower to 1.9%: Lifetime risk of 50%, possibly lower to 5%. Obesity, Class I, BMI 30.0-34.9 (see actual BMI) 03/03/2016 10/27/2016 Overview: bmi= 31.42 03/03/16 Routine medical exam 03/03/2016 10/27/2016 Overweight (BMI 25.0-29.9) 02/07/201210/27 Overview: bmi= 29.69 02/07/12 Need for xefcctkayp-nhagnee-dpklehjzu (Tdap) vac cine 02/07/2012 10/27/2016 Screening for cardiovascular condition 2 10/27/2016 Screening for diabetes mellitus 02/07/2012 10/27/2016 Family history of diabetes mellitus 02/07/2012 03/12/2018 Family history of hypertension 02/07/2012 1 Family history of ischemic heart disease 012 03/12/2018 Elevated blood pressure, situational 02/07/2012 06/02/2016 NONE 03/03/2016 Dyslipidemia, goal LDL below 100 10/26/2016 documented as of this encounter (statuses as of 02/17/2023) Immunizations Name Administration Dates Next Due TDAP (age 10 and older)(Boostrix) 02/07/2012 Zoster Vaccine Recombinant (Shingrix) 03/16/2021 ,09/11/2020 documented as of this encounter Social History Tobacco Use Types Packs/Day Years Used Date Smoking Tobacco: Never Smokeless Tobacco: Never Alcohol Use Standard Drinks/Week Comments Yes 0 (1 standard drink = 0.6 oz pur e alcohol) 1 beer per day Food Insecurity Answer Date Recorded Within the past 12 months, y ou worried that your food would run out before you got money to buy more. Never true 09/16/2022 Within the past 12 months, t he food you bought just didn't last and you didn't have money to get more. Never true 09/16/2022 Sex Assigned at Date Recorded Male 09/16/2022 7:49 AM E DT Job Start Date Occupation Industry Not on file Not on file Not on file documented as of this encounter Last Filed Vital Signs Vital Sign Reading Time Taken Comments Blood Pressure 120/78 02/17/2023 10:54 AM EDT Pulse 78 02/17/2023 10:54 AM EDT Temperature 36.8 C (98.2 F) 02/17/2023 1 0:54 AM EDT Respiratory Rate 16 02/17/2023 10:5 4 AM EDT Oxygen Saturation 93% 02/17/2023 10: 54 AM EDT Inhaled Oxygen Concentration - - Weight 101.2 kg (223 lb 3.2 oz) 023 10:54 AM EDT Height - - Body Mass Index 31.15 09/16/2022 7:49 AM EDT documented in this encounter Progress Notes * Rich Dixon MD - 02/17/2023 11:02 AM EDT Images from the original note were not included. Assessment and Plan 1. Type 2 diabetes mellitus with hemoglobin A1c goal of less than 7.0% (HCC) Uncontrolled with A1c 9.5. Metformin extended release 500 mg twice daily for 1 week then increase to 1000 mg twice daily. A1c in 3 months prior to follow up appointment. Patient refused vaccines. Appropriately on statin. - metFORMIN HCl ER 500 MG Oral Tablet Extended Release 24 Hour (Glucophage XR); Take 2 Tablets by mouth in the morning and 2 Tablets before bedtime. Dispense: 360 Tablet; Refill: 3 - HEMOGLOBIN A1C; Future 2. Dyslipidemia, goal LDL below 70 Continue atorvastatin and ezetimibe. 3. Essential hypertension with goal blood pressure less than 140/90 Blood pressure at goal on losartan 50 mg daily and metoprolol 50 mg daily.. 4. Cerebral atherosclerosis Noted history of CVA. 5. Left hemiplegia (HCC) Wrap-Up Follow up in 3 months. History of Present Illness The patient is a 57 year old male with past medical history of dyslipidemia, essential hypertension, history of CVA with residual left-sided hemiplegia who presents for diabetes follow up. Patient with new diagnosis of type 2 diabetes with A1c 9.5. Blood sugars reviewed with patient. Running in the 200s to low 300s. He was started on metformin ER 500 mg once daily at last appointment. He is tolerating this without nausea/vomiting/diarrhea. He was agreeable to increasing metformin dosi ng to 500 mg twice daily for 1 week then 1000 mg twice daily. We discussed recommendation for flu, pneumonia vaccines. He states he was not a Edith dish and refuses to get all. We did discuss that he was high-risk due to uncontrolled diabetes and history of CVA. He is appropriately on statin m edications. His most recent lipid panel was overall reassuring. He will need diabetic eye and diabetic foot exams moving forward. Physical Exam Vitals: 02/17/23 1054 Temp: 36.8 C (98.2 F) Pulse: 78 Resp: 16 SpO2: 93% BP: 120/78 Physical Exam Physical Exam Vitals reviewed. Constitutional: General: He is not in acute distress. Cardiovascular: Rate and Rhythm: Normal rate and regular rhythm. Heart sounds: No murmur heard. Pulmonary: Effort: Pulmonary effort is normal. No respiratory distress. Breath sounds: Normal breath sounds. Neurological: Mental Status: He is alert. Comments: Left-sided hemiplegia. Patient uses cane for ambulation. documented in this encounter Nursing Notes * Tayler Card LPN - 02/17/2023 10:55 AM EDT 9 day return. Blood sugars still running high documented in this encounter Plan of Treatment Upcoming Encounters Date Type Specialty Care Team Description 03/24/2023 Office Visit Family Medicine Lenora Harding MD [address] [place] [address] 05/19/2023 Office Visit Family Medicine Rich Dixon MD [address] [place] [address] Scheduled Orders Name Type Priority Associated Diagnoses Orde r Schedule HEMOGLOBIN A1C Lab Routine Type 2 diabetes mellitus with hemoglobin A1c goal of less than 7.0% (HCC) Expected: 02/17/2023 (Approximate), Expires: 02/17/2024 Scheduled Procedures Name Priority Associated Diagnoses Date/Ti [...] Visit Diagnoses Diagnosis Dyslipidemia, goal LDL below 70- Primary Other and unspecified hyperlipidemia Type 2 diabetes mellitus with hemoglobin A1c goal of less than 7.0% (HCC) Essential hypertension with goal blood pressure less than 140/90 Cerebral atherosclerosis Left hemiplegia (HCC) Hemiplegia, unspecified, affecting unspecified side documented in this encounter Care Teams Sterile Preparation Technician Relationship Specialty Start Date End Date Lenora Harding MD [address], [place] [id number] PCP - General Family Medicine 12/31/21 documented as of this encounter
--- OUTSIDE RECORDS SUMMARY | 2023-05-29 14:03 | External Medical Summary | Continuity of Care Document ---
Author Name Unknown Organization [id number] Address [address] [place] [id number] Care Team Providers Care Heater Furnace Name Role Phone Lenora Harding Primary Care Physician [phone] [id number] Date(s): 03/20/23 - 03/20/23 [facility] [address] [id number] [facility] Medicine [address] [place] [id number] Encounter Diagnosis Left spastic hemiparesis(Discharge Diagnosis) - 03/20/23 Discharge Disposition: Home or Self Care Attending Physician: MD Carmine, Alberto Garsia Allergies, Adverse Reactions, Alerts No Known Allergies Medications acetaminophen Start: 11/04/16 12:41:00, 650 mg =, PO, q4h, PRN: Fever/Mild Pain Start Date: 11/04/16 Status: Ordered aspirin 81 mg oral tablet, chewable Start: 09/20/16 20:32:00, 1 tab, PO, Daily Start Date: 09/20/16 Status: Ordered atorvastatin 40 mg oral tablet Start: 09/20/16 20:33:00, 1 tab, PO, Daily Start Date: 09/20/16 Status: Ordered baclofen 10 mg oral tablet Start: 10/21/16 10:40:00, 1.5 tab, PO, qid Start Date: 10/21/16 Status: Ordered Botox 100 units injection Start: 09/21/22 16:07:00 EDT, See Instructions, Disp# 2 each, Refills: 3, INJECT 200 UNITS INTRAMUSCULARLY EVERY 12 WEEKS (GIVEN AT MD OFFICE, DISCARD UNUSED), Pharmacy: [facility] Start Date: 09/21/22 Status: Ordered docusate sodium 100 mg oral capsule Start: 10/21/16 10:34:00, 1 cap, PO, bid, PRN: as needed for constipation Start Date: 10/21/16 Status: Ordered docusate-senna 50 mg-8.6 mg oral tablet Start: 10/21/16 10:42:00, 1 tab, PO, Daily Start Date: 10/21/16 Status: Ordered folic acid 1 mg oral tablet Start: 09/20/16 20:33:00, 1 tab, PO, Daily Start Date: 09/20/16 Status: Ordered losartan 50 mg oral tablet Start: 09/20/16 20:32:00, 1 tab, PO, Daily Start Date: 09/20/16 Status: Ordered metoprolol tartrate 50 mg oral tablet Start: 10/21/16 10:36:00, 1 tab, PO, Daily Start Date: 10/21/16 Status: Ordered Plavix 75 mg oral tablet Start: 09/20/16 20:33:00, 1 tab, PO, Daily Start Date: 09/20/16 Status: Ordered PROzac 20 mg oral capsule Start: 09/20/16 20:33:00, 1 cap, PO, Daily Start Date: 09/20/16 Status: Ordered Mental Status 03/20/23 Barriers to Learning one year None evide nt Mandatory Health Literacy Documentation Yes Health Literacy Communication Barriers N ever Primary Language Korean Problem List Condition Confirmation Course Effective Dates Status H ealth Status Informant Anxiety Confirmed Active CAD (coronary artery disease) Confirmed Active Carotid artery stenosis Confirmed Active Acute right arterial ischemic stroke, middle cerebral artery (MCA) Confirmed Active Alcohol use Confirmed Active Focal dystonia Confirmed Active History of coronary artery disease Confirmed Active History of tobacco use Confirmed Active Mixed hyperlipidemia Confirmed Active Hypertension Confirmed Active Benign meningioma of brain Confirmed Active Left spastic hemiparesis Confirmed Active Obesity Confirmed Active Diagnosis Diagnosis Type Effective Dates Health Status Clinical Service Informant Left spastic hemiparesis Discharge Diagnosis 03/20/23 Procedures Procedure Date Related Diagnosis Body Site Status Carotid artery 2017 Completed Tonsillectomy 1975 Completed Social History Social History Type Response Smoking Status Never smoked cigaret mani Sex Male Ortho Outpt Note * MD Carmine, Alberto Garsia: PERFORM Event Display: Ortho Outpt Note Authored Date: [id number] Name:CONNER FLYNN Patient Number:[id number] :1965 Date of Service:03/20/2023 CHIEF COMPLAINT: Right CVA with left hemiparesis, focal dystonia. HISTORY OF PRESENT ILLNESS: The patient is a 57-year-old male who presents today for Botox injections. He is accompanied by his . He reported the last time he got them worked very well and wishes the same regimen. MEDICATIONS: Tylenol, aspirin, atorvastatin, baclofen, Plavix, Colace., Senokot, Prozac, folic acid, losartan, metoprolol. PHYSICAL EXAMINATION: Pleasant male, seated comfortably. He had a flexor synergy pattern in hisleft upper extremity. The biceps was tight, flexed and that he had pretty tight tightness of the wrist flexors into his fingers. IMPRESSION: 1. Spastic lefthemiplegia secondary to R CVA. RECOMMENDATIONS: The patient presented with 2 vials of Botox. These were reconstituted 100 international units from each vial with preservative-free sterile saline 1 mL total was used for each vial. Injections were done with a 25-gauge 1-1/2 inch needle after negative aspiration, cleansing with alcohol and pressure marking to confirm the sites with nursing personnel and done after a timeoutfor safety, confirming the patient's name. 70 International Units were injected into the left biceps, 30 International Units into the left flexor carpi radialis, 50 International Units into the left flexor digitorum profundus and 50 International Units into the left flexor carpi ulnaris. Injections were well tolerated and will follow up in 3 months' time. Electronic Signature on File Electronically Reviewed/Signed by: Alberto Lou MD Author Signature Dt/Tm:03/20/2023 02:42 PM [employer] [facility] and Physical [facility] Patient Care team information Care Team Personnel Name: MD Harding Adela L Position: Referring Member Role: Primary Care Provider Address: Address: [address] [address] Name: MD aMrquez Jay D Position: Physician - Urology Member Role: Lifetime Relationship Address: Address: [address] [place] [id number] Care Team Related Persons Name: BEA FLYNN Address: home [address] [facility] [place] [id number] Name: SHANIA FLYNN Address: home [address] [facility] [id number] Name: SHANIA FLYNN Address: [address] [place], [id number]
--- OUTSIDE RECORDS SUMMARY | 2023-05-29 14:03 | External Medical Summary | Summary of Care ---
Author Name Unknown Organization [facility] Address [address] [place] [address] Phone [phone] Care Team Providers Care Technical Spec Name Role Phone Lenora Harding MD Primary Care Provid er Reason for Visit * Reason Comments Acute Blood sugar has been elevated in the 300's Encounter Details Date Type Department Care Team Description 02/08/2023 Office Visit [facility] [address] [place] [address] October, Rich Benz MD [address] [place] [address] Type 2 diabetes mellitus with hemoglobin A1c goal of less than 7.0% (HCC)*; Hyperglycemia; History of cardioembolic cerebrovascular accident (CVA); Left hemiplegia (HCC); Dyslipidemia, goal LDL below 70 Allergies No known active allergiesdocumented as of this encounter (statuses as of 02/08/2023) Medications Medication Sig Dispensed Refills Start Date [...] 03/18/2022 Active Baclofen 10 MG Oral Tablet (Lioresal)Indications:L [...] in the morning. 30 Tablet 0 02/08/2023 Active OneTouch Verio In Vitro Strip (Glucose Blood)Indications:Type 2 diabetes mellitus with hemoglobin A1c goal of less than 7.0% (HCC) Use up to 4 times daily for blood glucose testing. 100 Strip 0 02/08/2023 Active documented as of this encounter (statuses as of 02/08/2023) Active Problems Problem Noted Date Fatty liver [...] as of this encounter (statuses as of 02/08/2023) Resolved Problems Problem Noted Date Resolved Date [...] 02/07/201210/27 Overview: bmi= 29.69 02/07/12 Need for yqlpdfuwdf-mkhlkuc-oermswvnl (Tdap) vac cine 02/07/2012 10/27/2016 Screening for cardiovascular condition 2 10/27/2016 Screening for diabetes mellitus 02/07/2012 10/27/2016 Family history of diabetes mellitus 02/07/2012 03/12/2018 Family history of hypertension 02/07/2012 1 Family history of ischemic heart disease 012 03/12/2018 Elevated blood pressure, situational 02/07/2012 06/02/2016 NONE 03/03/2016 Dyslipidemia, goal LDL below 100 10/26/2016 documented as of this encounter (statuses as of 02/08/2023) Immunizations Name Administration Dates Next Due TDAP [...] Sign Reading Time Taken Comments Blood Pressure 110/74 02/08/2023 4:27 PM EDT Pulse 68 02/08/2023 4:27 PM EDT Temperature - - Respiratory Rate 16 02/08/2023 4:27 PM EDT Oxygen Saturation - - Inhaled Oxygen Concentration - - Weight - - Height - - Body Mass Index - - documented in this encounter Progress Notes * Rich Dixon MD - 02/08/2023 4:45 PM EDT Images from the original note were not included. Assessment and Plan 1. Type 2 diabetes mellitus with hemoglobin A1c goal of less than 7.0% (HCC) New diagnosis of type 2 diabetes based on home glucose readings. A1c to be determined on lab work as below. Start metformin 500 mg extended release daily. Discussed potential side effects of GI upsetand diarrhea. Patient received a glucometer and lancets in office today. Prescription sent for teststrips. The patient will follow up in 1 week to discuss lab results and consider increase in metformin dosing. He is already on atorvastatin due to history of CVA. He will need diabetic eye and diabetic foot exams. Discuss recommended vaccines at upcoming appointment as well. - metFORMIN HCl ER 500 MG Oral Tablet Extended Release 24 Hour (Glucophage XR); Take 1 Tablet by mouth in the morning. Dispense: 30 Tablet; Refill: 0 - OneTouch Verio In Vitro Strip (Glucose Blood); Use up to 4 times daily for blood glucose testing.Dispense: 100 Strip; Refill: 0 - HEMOGLOBIN A1C; Future - COMPREHENSIVE METABOLIC PANEL; Future - LIPID PANEL WITH DIRECT LDL IF TG IS HIGH; Future 2. Hyperglycemia 3. History of cardioembolic cerebrovascular accident (CVA) 4. Left hemiplegia (HCC) 5. Dyslipidemia, goal LDL below 70 Wrap-Up Follow up in 1 week for diabetes follow up. History of Present Illness The patient is a 57 year old male with past medical history of dyslipidemia, essential hypertension, alcohol abuse, CVA with left-sided hemiplegia who presents with hyperglycemia. Patient presents as he was noted to have blood sugars consistently in the 300s in recent weeks at home. Another family member has a glucometer and checked the patient's blood sugar when he she noted he was drinking more water at therapy. Blood sugar was in the 300s. The lowest blood sugar upon testing over the last few days was 275 this morning fasting. The patient does not notice urinary frequency. He otherwise feels well. Physical Exam Vitals: 02/08/23 1627 Pulse: 68 Resp: 16 BP: 110/74 Physical Exam Physical Exam Vitals reviewed. Constitutional: Comments: Well-appearing male with left-sided hemiplegia using cane for ambulation. Pulmonary: Effort: Pulmonary effort is normal. No respiratory distress. Neurological: Comments: Left-sided hemiplegia. documented in this encounter Nursing Notes * Jailene Stewart LPN - 02/08/2023 4:26 PM EDT The patient has been properly identified by confirmation of name and date of . Chief Complaint Patient presents with Acute Blood sugar has been elevated in the 300's documented in this encounter Plan of Treatment Upcoming Encounters Date Type Specialty Care Team Description 02/17/2023 Office Visit Family Medicine Rcih Dixon MD [address] [place] [address] 03/24/2023 Office Visit Family Medicine Lenora Harding MD [address] [place] [address] Scheduled Orders Name Type Priority Associated Diagnoses Orde r Schedule HEMOGLOBIN A1C Lab Routine Type 2 diabetes mellitus with hemoglobin A1c goal of less than 7.0% (HCC) Expected: 02/08/2023 (Approximate), Expires: 02/08/2024 COMPREHENSIVE METABOLIC PANEL Lab Routine Type 2 diabetes mellitus with hemoglobin A1c goal of less than 7.0% (HCC) Expected: 02/08/2023 (Approximate), Expires: 02/08/2024 LIPID PANEL WITH DIRECT LDL IF TG IS HIGH Lab Routine Type 2 diabetes mellitus with hemoglobin A1c goal of less than 7.0% (HCC) Expected: 02/08/2023, Expires: 02/09/2024 Scheduled Procedures Name Priority Associated Diagnoses Date/Ti [...] (2 - Td or Tdap) 02/06/2022 02/07/2012 GFR 12/31/2022 12/31/2021, 09/03, 09/11/2020, Additional history exists Influenza Vaccine (FLU shot) (#1) 2023 03/12/2018 (Declined), 09/22/2017 (Refused) Depression Screening, Annual for Pts 12 and Over 03/16/2023 03/16/2022, 03/03/2016 Diabetes Screening 12/31/2024 12/31/2021, 0 09/14/2021, 09/11/2020, Additional history exists Albumin/Creatinine Ratio 04/20/2025 04/20/2022 COLONOSCOPY-EVERY 5 YRS AGES 18-100 07/19/2027 07/19/2022, [...] as of this encounter Visit Diagnoses Diagnosis Type 2 diabetes mellitus with hemoglobin A1c goal of less than 7.0% (HCC)- Primary Hyperglycemia Other abnormal glucose History of cardioembolic cerebrovascular accident (CVA) Left hemiplegia (HCC) Hemiplegia, unspecified, affecting unspecified side Dyslipidemia, goal LDL below 70 Other and unspecified hyperlipidemia documented in this encounter Care Teams Technical Spec Relationship Specialty Start Date End Date Lenora Harding MD [address] [place] [address] PCP - General Family Medicine 12/31/21 documented as of this encounter
--- OUTSIDE RECORDS SUMMARY | 2023-05-29 14:03 | External Medical Summary | Summary of Care ---
Author Name Unknown Organization [facility] Address [address] [place] [address] Phone [phone] Care Team Providers Care Repairer Handtools Name Role Phone Lenora Harding MD Primary Care Provid er Reason for Visit * Reason Comments eRx-Medication Refill Encounter Details Date Type Department Care Team Description 03/02/2023 Refill [facility] [address] [place] [address] October, Tao Benz MD [address] [place] [address] Type 2 diabetes mellitus with hemoglobin A1c goal of less than 7.0% ([facility]) Allergies No known active allergiesdocumented as of this encounter (statuses as of 03/03/2023) Medications Medication Sig Dispensed Refills Start Date [...] 03/18/2022 Active Baclofen 10 MG Oral Tablet (Lioresal)Indication [...] GLUCOSE TESTING 100 Strip 11 03/03/2023 Active OneTouch Verio In Vitro Strip (Glucose Blood)Indications:Ty pe 2 diabetes mellitus with hemoglobin A1c goal of less than 7.0% (HCC) Use up to 4 times daily for blood glucose testing. 100 Strip 0 02/08/2023 3 Discontinued documented as of this encounter (statuses as of 03/03/2023) Active Problems Problem Noted Date Fatty liver [...] as of this encounter (statuses as of 03/03/2023) Resolved Problems Problem Noted Date Resolved Date [...] 02/07/201210/27 Overview: bmi= 29.69 02/07/12 Need for sduxedxejo-kqrtmbv-kjptksnri (Tdap) vac cine 02/07/2012 10/27/2016 Screening for cardiovascular condition 2 10/27/2016 Screening for diabetes mellitus 02/07/2012 10/27/2016 Family history of diabetes mellitus 02/07/2012 03/12/2018 Family history of hypertension 02/07/2012 1 Family history of ischemic heart disease 012 03/12/2018 Elevated blood pressure, situational 02/07/2012 06/02/2016 NONE 03/03/2016 Dyslipidemia, goal LDL below 100 10/26/2016 documented as of this encounter (statuses as of 03/03/2023) Immunizations Name Administration Dates Next Due TDAP [...] encounter Miscellaneous Notes * Telephone Encounter - Ngozi Jamison RPh - 03/03/2023 9:28 AM EDTSigned Prescriptions: Disp Refills OneTouch Verio In Vitro Strip (Glucose Blo*100 St*11 Sig: USE UP TO FOUR TIMES DAILY FOR BLOOD GLUCOSE TESTINGAuthorizing Provider: TAO LYNNE User: NGOZI JAMISON documented in this encounter Plan of Treatment Upcoming Encounters Date Type Specialty Care Team Description 03/24/2023 Office Visit Family Medicine Lenora Harding MD [address] [place] [address] 05/19/2023 Office Visit Family Medicine Tao Lynne MD [address] [place] [address] Scheduled Procedures Name Priority Associated Diagnoses Date/Ti [...] A1c goal of less than 7.0% (HCC) documented in this encounter Care Teams Repairer Handtools Relationship Specialty Start Date End Date Lenora Harding MD [address] [place] [address] PCP - General Family Medicine 12/31/21 documented as of this encounter
--- OUTSIDE RECORDS SUMMARY | 2023-05-29 14:03 | External Medical Summary ---
Author Name Unknown Address Unknown Organization [id number]:[facility] [place] [address] [place] [address] Laboratory Report Ordering Provider Test Date Status 02/09/2023 08:36:59 Final Observation Date Value Abnormality Reference (Units ) Status LDL, (direct) 02/09/2023 08:36:59 62 <=129 (mg/dL) Final LDL Cholesterol Reference Ra nges (mg/dL):
<70 Target level for high risk ASCVD patient
<100 Optimal for general population
100-129 Near optimal for general population
130-159 Borderline high
160-189 High
>=190 Very high Performing Location [facility] - [address] [place] [address]
--- OUTSIDE RECORDS SUMMARY | 2023-05-29 14:03 | External Medical Summary ---
Author Name Unknown Address Unknown Organization [id number]:[facility]ATORY [facility] [place] - [address] [place] [address] Laboratory Report Ordering Provider Test Date Status 02/09/2023 08:36:59 Final Observation Date Value Abnormality Reference (Units ) Status Triglyceride 02/09/2023 08:36:59 186 Above high normal <=174 (mg/dL) Final Triglyceride Reference Range s (mg/dL):
<150 Acceptable
150-174 Borderline high
175-499 High
>=500 Very high Cholesterol 02/09/2023 08:36:59 113 <200 (mg /dL) Final Total Cholesterol Reference Ranges (mg/dL):
<200 Desirable
200-239 Borderline high
>=240 High HDL 02/09/2023 08:36:59 26 Below low normal >39 (mg/dL) Final HDL Cholesterol Reference Ra nges (mg/dL):
>=60 High (Desirable)
<50 Low (Undesirable) For Females
<40 Low (Undesirable) For Males NON-HDL CHOLESTEROL 02/09/2023 08:36:59 87 <=159 (mg/dL) Final Non-HDL Cholesterol Referenc e Range (mg/dL):
<100 Target level for high risk ASCVD patient
<130 Optimal for general population
130-159 Near optimal for general population
160-189 Borderline High
190-219 High
>=220 Very High Performing Location [facility] - [address] [place] [address]
--- OUTSIDE RECORDS SUMMARY | 2023-05-29 14:03 | External Medical Summary ---
Author Name Unknown Address Unknown Organization [id number]:[facility] [place] - [address] [facility] [place] [address] Laboratory Report Ordering Provider Test Date Status 02/09/2023 08:36:59 Final Observation Date Value Abnormality Reference (Units ) Status BUN 02/09/2023 08:36:59 12 6-20 (mg/dL) Final Creatinine 02/09/2023 08:36:59 1.0 0.6-1.2 (mg/dL) Final Glomerular filtration rate/1.73 sq M.predicted [Volume Rate/Area] in Serum, Plasma or Blood by Creatinine-based formula (CKD-EPI) 02/09/2023 08:36:59 87 >=60 (mL/min) Final eGFR is calculated based on the CKD-EPI 2020 equation SODIUM 02/09/2023 08:36:59 134 Below low normal 135 -146 (mmol/L) Final Potassium 02/09/2023 08:36:59 4.7 3.5-5.1 (m mol/L) Final Cl 02/09/2023 08:36:59 97 Below low normal 98- 107 (mmol/L) Final CO2 02/09/2023 08:36:59 25 22-32 (mmo l/L) Final Anion gap 02/09/2023 08:36:59 12 7-15 (mmol /L) Final Glucose 02/09/2023 08:36:59 188 Above high normal 70 -120 (mg/dL) Final Albumin 02/09/2023 08:36:59 4.7 3.8-5.0 (g /dL) Final AST (Aspartate aminotransferase) 02/09/2023 08:36:59 70 Above high normal 10-50 (U/L) Final Alk Phos 02/09/2023 08:36:59 162 Above high normal 35 -130 (U/L) Final Bilirubin, Total 02/09/2023 08:36:59 2.2 Above high no rmal <=1.2 (mg/dL) Final Calcium 02/09/2023 08:36:59 10.3 Above high normal 8. 4-10.2 (mg/dL) Final Protein 02/09/2023 08:36:59 7.7 6.0-8.3 (g /dL) Final ALT (Alanine aminotransferase) 02/09/2023 08:36:59 88 Above high normal 10-50 (U/L) Final Performing Location [facility] [place] - [address] [facility] [address]
--- OUTSIDE RECORDS SUMMARY | 2023-05-29 14:03 | External Medical Summary | Summary of Care ---
Author Name Unknown Organization [facility] Address [address] [place] [address] Phone [phone] Care Team Providers Care Moveman Name Role Phone Lenora Harding MD Primary Care Provid er Reason for Visit * Reason Comments Outpatient Testing Encounter Details Date Type Department Care Team Description 02/09/2023 Laboratory Laboratory, [place] [address] [place] [address] [place] [address] [place] [address] Type 2 diabetes mellitus with hemoglobin A1c goal of less than 7.0% ([facility]) Allergies No known active allergiesdocumented as of this encounter (statuses as of 02/09/2023) Medications Medication Sig Dispensed Refills Start Date [...] as of this encounter (statuses as of 02/09/2023) Active Problems Problem Noted Date Fatty liver [...] as of this encounter (statuses as of 02/09/2023) Resolved Problems Problem Noted Date Resolved Date [...] 02/07/201210/27 Overview: bmi= 29.69 02/07/12 Need for bpdjebxoyr-vxjmhtv-debbqeurl (Tdap) vac cine 02/07/2012 10/27/2016 Screening for cardiovascular condition 2 10/27/2016 Screening for diabetes mellitus 02/07/2012 10/27/2016 Family history of diabetes mellitus 02/07/2012 03/12/2018 Family history of hypertension 02/07/2012 1 Family history of ischemic heart disease 012 03/12/2018 Elevated blood pressure, situational 02/07/2012 06/02/2016 NONE 03/03/2016 Dyslipidemia, goal LDL below 100 10/26/2016 documented as of this encounter (statuses as of 02/09/2023) Immunizations Name Administration Dates Next Due TDAP [...] Team Description 02/17/2023 Office Visit Family Medicine Rich Dixon MD [address], [place] [id number] 03/24/2023 Office Visit Family Medicine Lenora Harding MD [address] [place] [address] Pending Results Name Type Priority Associated Diagnoses Date /Time HEMOGLOBIN A1C Lab Routine Type 2 diabetes mellitus with hemoglobin A1c goal of less than 7.0% ([facility]) 02/09/2023 8:36 AM EDT COMPREHENSIVE METABOLIC PANEL Lab Routine Type 2 diabetes mellitus with hemoglobin A1c goal of less than 7.0% ([facility]) 02/09/2023 8:36 AM EDT LIPID PANEL WITH DIRECT LDL IF TG IS HIGH Lab Routine Type 2 diabetes mellitus with hemoglobin A1c goal of less than 7.0% ([facility]) 02/09/2023 8:36 AM EDT Scheduled Procedures Name Priority Associated Diagnoses Date/Ti [...] (HCC) documented in this encounter Care Teams Moveman Relationship Specialty Start Date End Date Lenora Harding MD [address] [place] [address] PCP - General Family Medicine 12/31/21 documented as of this encounter
--- OUTSIDE RECORDS SUMMARY | 2023-05-29 14:03 | External Medical Summary | Summary of Care ---
Author Name Unknown Organization [facility] Address [address] [facility] [place] [address] Phone [phone] Care Team Providers Care Medical Biller Coder Name Role Phone Kenia Teran MD Primary Care Provid er Reason for Visit * Reason Comments eRx-Medication Refill Encounter Details Date Type Department Care Team ([facility] st Contact Info) Description 05/01/2023 Refill [facility] [address] [place] [address] Kenia Teran MD [address] [place] [address] Left hemiplegia (HCC); Spasm of muscle Allergies No known active allergiesdocumented as of this encounter (statuses as of 05/01/2023) Medications Medication Sig Dispensed Refills Start Date [...] 04/29/2023 Active Empagliflozin 25 MG Oral Tablet (Jardiance)Indicatio ns:Type 2 diabetes mellitus with hemoglobin A1c goal of less than 7.0% (HCC) Take 1 Tablet by mouth in the morning. 90 Tablet 3 04/29/2023 Active Baclofen 10 MG Oral Tablet (Lioresal)Indication s:Left hemiplegia (HCC),Spasm of muscle TAKE 1 AND 1/2 TABLETS BY MOUTH FOUR TIMES A DAY 540 Tablet 1 05/01/2023 Active Baclofen 10 MG Oral Tablet (Lioresal)Indication s:Left hemiplegia (HCC),Spasm of muscle TAKE 1 AND 1/2 TABLETS BY MOUTH FOUR TIMES A DAY 540 Tablet 1 08/22/2022 3 Discontinued documented as of this encounter (statuses as of 05/01/2023) Active Problems Problem Noted Date Diagnosed Date [...] as of this encounter (statuses as of 05/01/2023) Resolved Problems Problem Noted Date Diagnosed Date [...] as of this encounter (statuses as of 05/01/2023) Immunizations Name Administration Dates Next Due TDAP [...] encounter Miscellaneous Notes * Telephone Encounter - Kenia Teran MD - 05/01/2023 4:47 PM EST Signed Prescriptions: Disp Refills Baclofen 10 MG Oral Tablet (Lioresal) 540 Ta*1 Sig: TAKE 1 AND 1/2 TABLETS BY MOUTH FOUR TIMES A DAY Authorizing Provider: KENIA TERAN * Telephone Encounter - Indigo Gastelum LPN - 05/01/2023 2:00 PM ESTPending Prescriptions: Disp Refills Baclofen 10 MG Oral Tablet [Pharmacy Med N*540 Ta*1 Sig: TAKE 1 AND 1/2 TABLETS BY MOUTH FOUR TIMES A DAY * Telephone Encounter - Va Ortiz - 05/01/2023 1:05 PM ESTPending Prescriptions: Disp Refills Baclofen 10 MG Oral Tablet [Pharmacy Med N*540 Ta*1 Sig: TAKE 1AND 1/2 TABLETS BY MOUTH FOUR TIMES A DAY documented in this encounter Plan of Treatment Upcoming Encounters Date Type Department Care Team ([facility]) Description 05/19/2023 8:00 AM EST Office Visit [facility] [address] [address] Kenia Teran MD [address] [facility], [place] [address] 06/14/2023 8:30 AM EST Imaging [facility], [facility] [address] [facility] [place] [address] 2023 8:30 AM EST Office Visit Vascular Surgery, [facility] [address] [facility] [place] [address] David Christiansen MD [address] [place] [address] Scheduled Procedures Name Priority Associated Diagnoses Date/Ti [...] as of this encounter Visit Diagnoses Diagnosis Left hemiplegia (HCC) Hemiplegia, unspecified, affecting unspecified side Spasm of muscle documented in this encounter Care Teams Medical Biller Coder Relationship Specialty Start Date End Date Kenia Teran MD [address] [place] [address] PCP - General Family Medicine 12/31/21 documented as of this encounter
--- OUTSIDE RECORDS SUMMARY | 2023-05-29 14:03 | External Medical Summary | Summary of Care ---
Author Name Unknown Organization [facility] Address [address] [place] [address] Phone [phone] Care Team Providers Care Paper Sorter Name Role Phone Lenora Harding MD Primary Care Provid er Reason for Referral * Evaluate & Treat - Unlimited Visits (Within 10 days (routine)) - Pending Review Specialty Diagnoses / Procedures Referred By Yury brito Referred To Contact Podiatry Diagnoses Type 2 diabetes mellitus with hemoglobin A1c goal of less than 7.0% (HCC) Ingrown toenail of left foot Lenora Harding MD [address] [place] [address] Referral ID Status Reason Start Date Expiration Date Visits Requested Visits Authorized [id number] Pending Review Specialty Services Required [phone] Question Answer Referral Priority Within 10 days (routine) Where should this appointment be scheduled? [facility] Which condition are you referring this patient for? Diabetic foot care/pain Specific condition? Diabetic Foot care Medicare Patient? No Comments Newly diagnosed diabetic, also wears foot brace due to hemiplegia. Needs custom diabetic shoes due to calluses and nail injury. Reason for Visit * Reason Comments Status Check Encounter Details Date Type Department Care Team Description 03/24/[address] [facility] [address] [place] [address] Lenora Harding MD [address] [place] [address] Type 2 diabetes mellitus with hemoglobin A1c goal of less than 7.0% ([facility])*; Ingrown toenail of left foot Allergies No known active allergiesdocumented as of this encounter (statuses as of 03/24/2023) Medications Medication Sig Dispensed Refills Start Date End Date Status THIAMINE (VITAMIN B-1) 100 MG Tablet Take 1 Tablet by mouth in the morning. 0 Active aspirin enteric coated (ECOTRIN LOW STRENGTH) 81 MG TBECIndications:Essent ial hypertension with goal blood pressure less than [...] 03/18/2022 Active Baclofen 10 MG Oral Tablet (Lioresal)Indications: Left hemiplegia (HCC),Spasm of muscle TAKE 1 AND 1/2 TABLETS BY MOUTH FOUR TIMES A DAY 540 Tablet 1 08/22/2022 Active Losartan Potassium 50 MG Oral Tablet (Cozaar)Indications:Es sential hypertension with goal blood pressure less than 140/90 Take 1 Tablet by mouth in the morning. 90 Tablet 3 09/16/2022 Active Ezetimibe 10 MG Oral Tablet (Zetia)Indications:Dys lipidemia, goal LDL below 70,Carotid stenosis, symptomatic, with infarction (HCC),Cerebral atherosclerosis,Fatty liver,History of cardioembolic cerebrovascular accident (CVA) Take 1 Tablet by mouth in the morning. 90 Tablet 3 09/16/2022 Active Folic Acid 1 MG Oral TabletIndications:Cere brovascular disease, arteriosclerotic, post-stroke TAKE 1 TABLET BY MOUTH EVERY DAY AT 9AM. 90 Tablet 3 09/16/2022 Active Clopidogrel Bisulfate 75 MG Oral Tablet (pLAVix)Indications:Ce rebrovascular disease, arteriosclerotic, post-stroke Take 1 Tablet by mouth in the morning. 90 Tablet 3 09/16/2022 Active Metoprolol Tartrate 50 MG Oral Tablet (Lopressor)Indications :Essential hypertension with goal blood pressure less than [...] GLUCOSE TESTING 100 Strip 11 03/03/2023 Active Cephalexin 500 MG Oral CapsuleIndications:Typ e 2 diabetes mellitus with hemoglobin A1c goal of less than 7.0% (HCC),Ingrown toenail of left foot Take 1 Capsule by mouth in the morning and 1 Capsule at noon and 1 Capsule before bedtime. Do all this for 10 days. 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 Routine medical exam 03/03/2016 10/27/2016 Overweight (BMI 25.0-29.9) 02/07/201210/27 Overview: bmi= 29.69 02/07/12 Need for wogjiqnkmy-ceirpaq-tlypqnrtj (Tdap) vac cine 02/07/2012 10/27/2016 Screening for cardiovascular condition 2 10/27/2016 Screening for diabetes mellitus 02/07/2012 10/27/2016 Family history of diabetes mellitus 02/07/2012 03/12/2018 Family history of hypertension 02/07/2012 1 Family history of ischemic heart disease 012 03/12/2018 Elevated blood pressure, situational 02/07/2012 06/02/2016 NONE 03/03/2016 documented as of this encounter (statuses as of 03/24/2023) Immunizations Name Administration Dates Next Due TDAP (age 10 and older)(Boostrix) 02/07/2012 Zoster Vaccine Recombinant (Shingrix) 03/16/2021 ,09/11/2020 documented as of this encounter Social History Tobacco Use Types Packs/Day Years Used Date Smoking Tobacco: Never Smokeless Tobacco: Never Tobacco Cessation:Counseling Given: Not [...] Sign Reading Time Taken Comments Blood Pressure 128/78 03/24/2023 7:52 AM EDT Pulse 75 03/24/2023 7:52 AM EDT Temperature 36.6 C (97.8 F) 03/24/2023 7:52 AM ED T Respiratory Rate 16 03/24/2023 7:52 AM EDT Oxygen Saturation 93% 03/24/2023 7:52 AM EDT Inhaled Oxygen Concentration - - Weight 98.4 kg (217 lb) 03/24/2023 7:52 AM EDT Height - - Body Mass Index 30.28 09/16/2022 7:49 AM EDT documented in this encounter Progress Notes * Lenora Harding MD - 03/24/2023 8:02 AM EDT ASSESSMENT / PLAN: Demar Ocampo is a 57 year old male with PMHx RT MCA CVA 2016 with residual deficits / left sided spastic hemiparesis / 6 beers daily / HTN / dyslipidemia / fatty liver / T2DM - here for return/acute New diagnosis of T2DM Extensively reviewed dietary changes that need made Cereal and whole milk --> oatmeal. He is not willing to change to skim Continue metformin max dosing - he will likely need addition of second agent GLP 1 would be preferred add on in setting of atherosclerosis Foot care Recommend podiatry specialized care given need for specialized diabetic shoes - his left foot requires a brace (given foot drop) Referral placed Alcohol use Ongoing Reviewed how this contributes to diabetes development Close follow up Screenings/anticipatory guidance reviewed include if applicable nutrition, family planning/contraception, physical activity, healthy weight, injury prevention, misuse of tobacco, alcohol and drugs, sexual behavior and STDs, dental health, mental health, immunizations, age appropriate screenings: next colonoscopy 2027 (5 yr recall) Due for Flu - declines If applicable Starting age 19: Screening for Cholesterol every five years beginning at 20 years of age, chlamydiafor sexually active women under 25 years of age, HIV Starting age 40: Screening for Cholesterol, diabetes, colorectal cancer beginning at 50 years, HIV Check-out note: Switch his appt on 05/[address] Dixon to me please (pt wants to follow up chronic care with one doctor) Type 2 diabetes mellitus with hemoglobin A1c goal of less than 7.0% ([facility]) (Primary) - PODIATRY REFERRAL OP - Cephalexin 500 MG Oral Capsule; Take 1 Capsule by mouth in the morning and 1 Capsule at noon and 1 Capsule before bedtime. Do all this for 10 days. Ingrown toenail of left foot - PODIATRY REFERRAL OP - Cephalexin 500 MG Oral Capsule; Take 1 Capsule by mouth in the morning and 1 Capsule at noon and 1 Capsule before bedtime. Do all this for 10 days. Check-out note: Switch his appt on 05/[address] Dixon to me please (pt wants to follow up chronic care with one doctor) If needed, prefers contact by: Ok to leave message on phone: SUBJECTIVE: Nursing Notes: Zoraida Rao LPN 03/24/23 0759 Signed The patient has been properly identified by confirmation of name and date of . Chief Complaint Patient presents with Status Check Return visit Left foot great toe has been bleeding from underneath his toenail. This started a while ago. Patient has been verbally educated on the need or importance of Immunizations: hep b, flu, pneumonia. HPI: Demar Ocampo is a 57 year old male. Here for recheck. Seen 02/17 for f/u chronic conditions and new diagnosis of T2DM. He is adherent with max dosing metformin. No side effects Recently seen by Dr. Lou for botox injections which help with dystonia/hemiparesis. Reviewed sources 1- Last labs show mild low sodium / LDL within control / normal GFR / A1C 9.5 Latest Reference Range & Units 02/09/23 08:36 Triglycerides <=174 mg/dL 186 (H) Cholesterol <200 mg/dL 113 Non-HDL Cholesterol <=159 mg/dL 87 HDL Cholesterol >39 mg/dL 26 (L) LDL Cholesterol (Direct Measure) <=129 mg/dL 62 Sodium 135 - 146 mmol/L 134 (L) Potassium 3.5 - 5.1 mmol/L 4.7 Chloride 98 - 107 mmol/L 97 (L) CO2 22 - 32 mmol/L 25 BUN 6 - 20 mg/dL 12 Creatinine 0.6 - 1.2 mg/dL 1.0 Estimated Glomerular Filtration Rate >=60 mL/min 87 Anion Gap 7 - 15 mmol/L 12 Glucose 70 - 120 mg/dL 188 (H) Calcium 8.4 - 10.2 mg/dL 10.3 (H) Protein 6.0 - 8.3 g/dL 7.7 Estimated Average Glucose <126 mg/dL 226 (H) Hemoglobin A1C 4.0 - 5.6 % 9.5 (H) Albumin 3.8 - 5.0 g/dL 4.7 AST 10 - 50 U/L 70 (H) ALT 10 - 50 U/L 88 (H) Alkaline Phosphatase 35 - 130 U/L 162 (H) Bilirubin, Total <=1.2 mg/dL 2.2 (H) (H): Data is abnormally high (L): Data is abnormally low Patient Active Problem List Diagnosis Code Hypertension [...] Tab by mouth daily. 100 Tab 3 Atorvastatin Calcium 80 MG Oral Tablet (Lipitor) Take by mouth 1 Tablet in the morning. 90 Tablet 3 Baclofen 10 MG Oral Tablet (Lioresal) TAKE 1 AND 1/2 TABLETS BY MOUTH FOUR TIMES A DAY 540 Tablet 1 Losartan Potassium 50 MG Oral Tablet (Cozaar) [...] DAY AT 9 A.M. 90 Tablet 3 metFORMIN HCl ER 500 MG Oral Tablet Extended Release 24 Hour (Glucophage XR) Take 2 Tablets by mouth in the morning and 2 Tablets before bedtime. 360 Tablet 3 Cephalexin 500 MG Oral Capsule Take 1 Capsule by mouth in the morning and 1 Capsule at noon and 1 Capsule before bedtime. Do all this for 10 days. 30 Capsule 0 acetaminophen (TYLENOL) 500 MG Tablet Take by mouth as needed. BOTOX 100 units injection every 12 weeks. diphenhydrAMINE HCl 25 MG Oral Tablet Take 1 Tablet by mouth every 6 hours as needed for Itching. Wowboard Verio In Vitro Strip (Glucose Blood) USE UP TO FOUR TIMES DAILY FOR BLOOD GLUCOSE TESTING 100 Strip 11 No current facility-administered medications for this visit. OBJECTIVE: BP 128/78 | Pulse 75 | Temp 36.6 C (97.8 F) (Infrared ) | Resp 16 | Wt 98.4 kg (217 lb) | SpO2 93% | BMI 30.28 kg/m | BSA 2.22 m Vitals reviewed and is normotensive / afebrile / and not tachycardic General: No acute distress. Neuro: Alert Pleasant & interactive.+left hemiplegia. Sitting upright in wheelchair Respiratory: Good inspiratory effort, no labored breathing. CTAB CV: RRR no M R G MSK left great toe with dried blood underneath distal nail. Mild erythema. Mildly inflamed cuticles. HEENT: Conjunctivae appear clear. No swelling noted face or lips. Skin: No rash visible on exposed skin areas, normal coloration & appears dry. Psych: Normal affect. Fluent speech. Lenora Harding MD [address] [address] There are no Patient Instructions on file for this visit. documented in this encounter Nursing Notes * Zoraida Rao LPN - 03/24/2023 7:52 AM EDT The patient has been properly identified by confirmation of name and date of . Chief Complaint Patient presents with Status Check Return visit Left foot great toe has been bleeding from underneath his toenail. This started a while ago. Patient has been verbally educated on the need or importance of Immunizations: hep b, flu, pneumonia. documented in this encounter Plan of Treatment Upcoming Encounters Date Type Specialty Care Team Description 05/19/2023 Office Visit Family Medicine Lenora Harding MD [address] [place] [address] 06/14/2023 Imaging Radiology 2023 Office Visit Vascular Surgery David Christiansen MD [address] [place] [address] Scheduled Procedures Name Priority Associated Diagnoses Date/Ti me COLONOSCOPY FLEXIBLE PROXIMAL DIAGNOSTIC Recall History of colon polyps Scheduled Referrals Name Type Priority Associated Diagnoses Orde r Schedule PODIATRY REFERRAL OP Referral Within 10 days (routine) Type 2 diabetes mellitus with hemoglobin A1c goal of less than 7.0% (HCC) Ingrown toenail of left foot Ordered: 03/24/2023 Health Maintenance Due Date Last Done Comments [...] goal of less than 7.0% (HCC)- Primary Ingrown toenail of left foot documented in this encounter Care Teams Paper Sorter Relationship Specialty Start Date End Date Lenora Harding MD [address] [place] [address] PCP - General Family Medicine 12/31/21 documented as of this encounter"
--- NOTE | 2023-05-29 15:07 | Emergency Department Note ---
Impression & Plan Hyperbilirubinemia, Alcohol abuse, Transaminitis, Vomiting ED Provider Note NAME: CONNER FLYNN AGE: 57 SEX: M : 1965 ARRIVES VIA: Walk-In INFORMANT: Patient, ED PROVIDER(S): Rich Price MD CHIEF COMPLAINT: Vomiting MEDICAL DECISION MAKING: Patient presents due to concern for vomiting. The patient does not have any abdominal pain. IV was established and blood work was obtained and the patient was ordered IV fluids and IV Zofran. Patient's blood work shows a normal white count hemoglobin of 13.3 with a normal platelet count kidney function is unremarkable. Patient does have mild hypercalcemia at 10.5 with a transaminitis with bilirubin of 6 AST and ALT of 2 [birth year]1984 with an alk phosphatase of 573. Patient's lipase is not elevated. COVID flu RSV negative. Given the patient's transaminitis I did ask the patient denies alcohol use and he does admit to drinking 4 drinks per day. Right upper quadrant ultrasound was ordered no evidence of cholecystitis or gallstones but the patient does have CBD dilatation at 9. I did speak with on-call theater set production designer who stated that this does sound biliary states the patient may need an ERCP. I did discuss this with the patient and offered MRCP which could be completed here but that if this was positive he would need to be transferred where the patient could be transferred to another facility where there would be discussion about ERCP versus MRCP. The patient would prefer to have an MRCP completed. Patient did recently drink something to the patient is unable to have an MRCP for at least 4 hours fasting. Given this I did speak with the on-call hospitalist Dr. Bowers and the patient was admitted to the medicine service. Discussion w/ other healthcare providers: Dr. Kingston gastroenterology Prior /Outside records reviewed: None Differential diagnosis: Gastroenteritis, food borne illness, infection, appendicitis, diverticulitis, inflammatory bowel disease, obstruction among others were considered. Diagnostics, as interpreted by me: ECG: None Cardiac monitoring: An order was placed for continuous cardiac monitoring. The monitor shows a rate of 75 with sinus rhythm. Patient was placed on pulse oximetry Medical decision rules: None Imaging studies: I informally interpreted the patient's right upper quadrant ultrasound which does not show obvious gallstone with formal report to follow. HPI: Patient presents due to concern for vomiting. The patient states that he has been vomiting approximate 3 times daily for the last week. The patient does drink alcohol socially but denies any tobacco use. No changes in diet. No known sick contacts or recent travel. The patient did try Pepto-Bismol as well as Tums at home which seem to help with some of his symptoms. Patient denies any chest pains or shortness of breath and states that he is primarily nauseous but it tends to be more sudden and he believes that his vomitus appears oily. PAST MEDICAL HISTORY: See Below PAST SURGICAL HISTORY: See Below SOCIAL HISTORY: See Below HOME MEDICATIONS: See Below ALLERGIES: See Below VITALS: See Below PHYSICAL EXAMINATION: GENERAL: NAD, non-toxic. Wearing glasses. EYE EXAM: Normal conjunctiva. PERRL, no anisocoria and EOM's grossly intact w/o pain. OROPHARYNX: Moist mucus membranes, grossly normal dentition. NECK: Supple, no nuchal rigidity, no adenopathy, non-tender. No signs of meningismus. FROM of the neck with good chin to chest and neck extension. No stridor. LUNGS: Clear to auscultation. Normal chest wall mechanics. HEART: NSR, no MRG. ABDOMEN: Abdomen soft, non-tender, no masses, no rebound or guarding. BACK: No CVA TTP. SKIN: No rashes and no bruising. UPPER EXTREMITIES: Upper extremities are grossly normal. LOWER EXTREMITIES: Grossly normal, no edema. Left lower extremity foot drop brace noted NEURO EXAM: A&O x3, cranial nerves II-XII grossly intact, normal speech, moves all 4 extremities. 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 Fatty liver Obesity Arteriosclerosis of coronary artery CAD (coronary artery disease) Cerebral atherosclerosis HTN (hypertension) Carotid stenosis, symptomatic, with infarction Hyperlipidemia Surgical History (Updated 05/29/23 @ 19:22 by Breana Bowers DO) S/P tonsillectomy and adenoidectomy S/P carotid endarterectomy Family History (Updated 05/29/23 @ 19:23 by Breana Bowers DO) Mother Diabetes Social History (Updated 05/29/23 @ 19:38 by Breana Bowers DO) Smoking Status: Never smoker Hx Alcohol Use: Yes Alcohol type: beer Alcohol Intake Frequency Comment: 4-5 drinks per day Hx Substance Use: No Preferred Language: Cymro Communication Ability: Effective Commercial Decorator Required: No marital status: Current Living Situation: Spouse current occupational status: disabled Other Information That Helps Us Care for You: No Feels Safe at Home: Yes Safety Concerns: Feels Safe At This Time Assistive Devices: Cane and Glasses Allergies Allergies Allergy/AdvReac Type Severity Reaction Status Date / Time No Known Drug Allergies Allergy Unknown . Verified 04/13/17 14:19 Home Meds Home Medications Medication Instructions Recorded Confirmed Thiamine Hcl (Vitamin B-1) 100 mg PO QAM #0 tabs 04/11/17 05/29/23 aspirin 81 mg capsule 81 mg PO DAILY 05/29/23 05/29/23 atorvastatin 80 mg tablet 80 mg PO DAILY 05/29/23 05/29/23 baclofen 10 mg tablet 15 mg PO QID 05/29/23 05/29/23 clopidogrel 75 mg tablet 75 mg PO DAILY 05/29/23 05/29/23 empagliflozin 25 mg tablet 25 mg PO DAILY 05/29/23 05/29/23 (Jardiance) ezetimibe 10 mg tablet 10 mg PO DAILY 05/29/23 05/29/23 fluoxetine 40 mg capsule 40 mg PO DAILY 05/29/23 05/29/23 folic acid 1 mg tablet 1 mg PO DAILY 05/29/23 05/29/23 glipizide 2.5 mg tablet, extended 2.5 mg PO DAILY 05/29/23 05/29/23 release 24 hr losartan 50 mg tablet 50 mg PO DAILY 05/29/23 05/29/23 metformin 500 mg tablet,extended 500 mg PO AMHS 05/29/23 05/29/23 release 24 hr metoprolol tartrate 50 mg tablet 50 mg PO DAILY 05/29/23 05/29/23 thiamine HCl (vitamin B1) 100 mg 100 mg PO DAILY 05/29/23 05/29/23 tablet Results & Data (ED) Vital Signs Vital Signs - 24 hr 05/29/23 13:58 05/29/23 14:23 05/29/23 14:30 Temperature 36.6 C Temperature Source Temporal Artery Scan Pulse Rate 77 73 Pulse Rate from SpO2 Sensor Respiratory Rate 18 22 Blood Pressure 108/68 97/59 L Blood Pressure Mean 81 65 Pulse Oximetry 96 Oxygen Delivery Method Sepsis Recent Fever Within 48 Hours No Sepsis New/Unexplained Change in Mental Status N/A Sepsis Action Taken by Nursing No Action Required 05/29/23 14:30 05/29/23 14:38 05/29/23 14:40 Temperature Temperature Source Pulse Rate 70 72 72 Pulse Rate from SpO2 Sensor 71 71 Respiratory Rate 19 22 Blood Pressure Blood Pressure Mean Pulse Oximetry 92 91 Oxygen Delivery Method Sepsis Recent Fever Within 48 Hours Sepsis New/Unexplained Change in Mental Status Sepsis Action Taken by Nursing 05/29/23 14:50 05/29/23 15:00 05/29/23 15:00 Temperature Temperature Source Pulse Rate 73 72 Pulse Rate from SpO2 Sensor 74 72 Respiratory Rate 21 19 Blood Pressure 101/63 Blood Pressure Mean 85 Pulse Oximetry 93 93 Oxygen Delivery Method Sepsis Recent Fever Within 48 Hours Sepsis New/Unexplained Change in Mental Status Sepsis Action Taken by Nursing 05/29/23 15:10 05/29/23 15:20 05/29/23 15:24 Temperature Temperature Source Pulse Rate 72 74 Pulse Rate from SpO2 Sensor 72 74 Respiratory Rate 21 23 Blood Pressure Blood Pressure Mean Pulse Oximetry 93 92 Oxygen Delivery Method Room Air Sepsis Recent Fever Within 48 Hours Sepsis New/Unexplained Change in Mental Status Sepsis Action Taken by Nursing 05/29/23 15:30 05/29/23 15:40 05/29/23 15:50 Temperature Temperature Source Pulse Rate 70 69 75 Pulse Rate from SpO2 Sensor 69 70 76 Respiratory Rate 16 19 20 Blood Pressure Blood Pressure Mean Pulse Oximetry 92 95 95 Oxygen Delivery Method Sepsis Recent Fever Within 48 Hours Sepsis New/Unexplained Change in Mental Status Sepsis Action Taken by Nursing 05/29/23 16:00 05/29/23 16:00 05/29/23 16:10 Temperature Temperature Source Pulse Rate 74 75 Pulse Rate from SpO2 Sensor 74 75 Respiratory Rate 19 16 Blood Pressure 108/60 Blood Pressure Mean 87 Pulse Oximetry 95 95 Oxygen Delivery Method Sepsis Recent Fever Within 48 Hours Sepsis New/Unexplained Change in Mental Status Sepsis Action Taken by Nursing 05/29/23 16:20 05/29/23 16:30 05/29/23 16:30 Temperature Temperature Source Pulse Rate 77 80 Pulse Rate from SpO2 Sensor 77 74 Respiratory Rate 17 23 Blood Pressure 103/70 Blood Pressure Mean 90 Pulse Oximetry 94 95 Oxygen Delivery Method Sepsis Recent Fever Within 48 Hours Sepsis New/Unexplained Change in Mental Status Sepsis Action Taken by Nursing 05/29/23 16:43 05/29/23 16:50 05/29/23 17:31 Temperature Temperature Source Pulse Rate 78 74 83 Pulse Rate from SpO2 Sensor Respiratory Rate 15 20 18 Blood Pressure Blood Pressure Mean Pulse Oximetry Oxygen Delivery Method Sepsis Recent Fever Within 48 Hours Sepsis New/Unexplained Change in Mental Status Sepsis Action Taken by Nursing 05/29/23 17:32 05/29/23 17:32 05/29/23 17:40 Temperature Temperature Source Pulse Rate 77 81 Pulse Rate from SpO2 Sensor Respiratory Rate 19 16 Blood Pressure 111/60 Blood Pressure Mean 65 Pulse Oximetry Oxygen Delivery Method Sepsis Recent Fever Within 48 Hours Sepsis New/Unexplained Change in Mental Status Sepsis Action Taken by Nursing 05/29/23 17:50 05/29/23 18:00 05/29/23 18:00 Temperature Temperature Source Pulse Rate 80 82 Pulse Rate from SpO2 Sensor Respiratory Rate 17 15 Blood Pressure 106/58 L Blood Pressure Mean 80 Pulse Oximetry Oxygen Delivery Method Sepsis Recent Fever Within 48 Hours Sepsis New/Unexplained Change in Mental Status Sepsis Action Taken by Nursing 05/29/23 18:10 05/29/23 18:20 05/29/23 18:30 Temperature Temperature Source Pulse Rate 86 87 Pulse Rate from SpO2 Sensor Respiratory Rate 13 20 Blood Pressure 120/79 Blood Pressure Mean 93 Pulse Oximetry Oxygen Delivery Method Sepsis Recent Fever Within 48 Hours Sepsis New/Unexplained Change in Mental Status Sepsis Action Taken by Nursing 05/29/23 18:30 05/29/23 18:37 05/29/23 18:40 Temperature Temperature Source Pulse Rate 84 84 96 H Pulse Rate from SpO2 Sensor Respiratory Rate 19 14 Blood Pressure Blood Pressure Mean Pulse Oximetry Oxygen Delivery Method Sepsis Recent Fever Within 48 Hours Sepsis New/Unexplained Change in Mental Status Sepsis Action Taken by Nursing 05/29/23 18:50 05/29/23 19:00 05/29/23 19:00 Temperature Temperature Source Pulse Rate 94 H 82 Pulse Rate from SpO2 Sensor Respiratory Rate 19 19 Blood Pressure 104/66 Blood Pressure Mean 85 Pulse Oximetry Oxygen Delivery Method Sepsis Recent Fever Within 48 Hours Sepsis New/Unexplained Change in Mental Status Sepsis Action Taken by Nursing Laboratory Data 05/29/23 14:28 05/29/23 14:28 Lab Results 05/29/23 05/29/23 Range/Units 14:28 15:35 WBC 9.77 (4.8-10.8) K/ul RBC 4.28 L (4.70-6.10) M/uL Hgb 13.3 L (14.0-18.0) g/dl Hct 38.5 L (42.0-52.0) % MCV 90.0 (80.0-100.0) fL MCH 31.1 (25.0-34.0) pg MCHC 34.5 (32.0-36.0) g/dL RDW Std Deviation 44.8 (36.4-46.3) fL RDW Coeff of Bess 13.6 (11.5-14.5) % Plt Count 283 (130-400) K/uL MPV 10.6 (9.4-12.4) fL Immature Gran % (Auto) 0.3 % Neut % (Auto) 69.8 % Lymph % (Auto) 15.8 % Rooks % (Auto) 10.3 % Eos % (Auto) 2.5 % Baso % (Auto) 1.3 % Neut # (Auto) 6.82 H (1.40-6.50) K/uL Lymph # (Auto) 1.54 (1.20-3.40) K/uL Rooks # (Auto) 1.01 H (0.11-0.59) K/uL Eos # (Auto) 0.24 (0.00-0.50) K/uL Baso # (Auto) 0.13 (0.00-0.20) K/uL Immature Gran # (Auto) 0.03 (0.01-0.20) K/uL Sodium 136 (136-145) mmol/L Potassium 3.6 (3.5-5.1) mmol/L Chloride 99 (98-107) mmol/L Carbon Dioxide 23 (21-32) mmol/L Anion Gap 14 H (3-11) BUN 18 (6-23) mg/dl Creatinine 1.03 (0.6-1.4) mg/dl Est Cr Clr Drug Dosing 87.7 ml/min Est GFR ( Amer) 93.7 ml/min Est GFR (Non-Af Amer) 80.8 ml/min BUN/Creatinine Ratio 17.5 (10-20) Glucose 163 H (70-99(Fasting)) mg/dl Calcium 10.5 H (8.6-10.3) mg/dl Total Bilirubin 6.0 H (0.2-1.0) mg/dl AST 201 H (13-39) U/L ALT 285 H (7-52) U/L Alkaline Phosphatase 573 H (34-104) U/L Total Protein 7.6 (6.0-8.3) gm/dl Albumin 4.1 (3.4-5.0) gm/dl Globulin 3.5 (2.5-4.0) gm/dl Albumin/Globulin Ratio 1.2 (0.9-2) Lipase 67 (11-82) U/L SARS-CoV-2 (PCR) NEGATIVE (Negative) Influenza Type A (PCR) Negative (Neg) Influenza Type B (PCR) Negative (Neg) RSV (RT-PCR) Negative (Neg) Administered Medications Discontinued Medications Sodium Chloride (Nss) 1,000 mls @ 999 mls/hr IV .Q1H1M STA Stop: 05/29/23 16:09 Last Infusion: 05/29/23 16:45 Dose: Infused Documented By: Admin: 05/29/23 15:28 Dose: 999 mls/hr Documented By: BOLA Sodium Chloride (Nss) 1,000 mls @ 999 mls/hr IV .Q1H1M ONE Stop: 05/29/23 16:23 Last Admin: 05/29/23 15:28 Dose: Not Given Documented By: BOLA Ondansetron HCl (Ondansetron Inj 2 Mg/Ml 2 Ml Vial) 4 mg IV NOW STA Stop: 05/29/23 15:24 Last Admin: 05/29/23 15:28 Dose: 4 mg Documented By: BOLA Imaging Data Radiologist's Impression: Gallbladder Ultrasound 05/29/23 16:25 US gallbladder CLINICAL HISTORY: Vomiting, transaminitis, elevated bilirubin. COMPARISON STUDY: No previous studies for comparison. FINDINGS: No hepatic lesions are identified. No intrahepatic biliary ductal dilatation is noted. The common bile duct is mildly dilated, measuring 9 mm in caliber. No common bile duct calculi identified although these may be occult by sonography. No gallstones are identified. There is no gallbladder wall thickening. No sonographic Irving sign was elicited. The pancreas is obscured by overlying bowel gas. There is no right hydronephrosis. Several echogenic shadowing foci within the right renal sinus favor calculi measuring up to 8 mm. IMPRESSION: 1. No gallstones. No evidence for acute cholecystitis. 2. Mild biliary ductal dilatation. No common bile duct calculi identified although these may be occult by sonography. Correlation with obstructive liver function tests is recommended. 3. Right nephrolithiasis. No right hydronephrosis. 4. Obscured pancreas. ACT 112: Negative or not required by law. Electronically signed by: Gus Napier M.D. 05/29/2023 5:31 PM Discharge Plan Visit Data Chief Complaint: GI Assessment Stated Complaint: VOMITING, DECREASED PO INTAKE, WEIGHT LOSS ED Provider: Rich Price Discharge Problem: Hyperbilirubinemia, Alcohol abuse, Transaminitis, Vomiting Discharge Instructions Interventions: ED Discharge Assessment Last Done: 05/29/23 20:35 Discharge Problem: Vomiting Qualifiers: Vomiting type: unspecified Nausea presence: with nausea Qualified Code(s): R 11.2 - Nausea with vomiting, unspecified
[2023-05-29] MEDS ORDERED: SODIUM CHLORIDE 0.9% 1,000 ML IV STA (15:09)
[2023-05-29] MEDS ORDERED: SODIUM CHLORIDE 0.9% 1,000 ML IV ONE (15:23)
[2023-05-29] MEDS ORDERED: ONDANSETRON INJ 2 MG/ML 2 ML VIAL IV STA (15:23)
[2023-05-29 15:32] LABS: Basophils # (auto) 0.13 K/uL (0.00-0.20); Basophils % (auto) 1.3 %; Eosinophils # (auto) 0.24 K/uL (0.00-0.50); Eosinophils % (auto) 2.5 %; Hematocrit (blood only) 38.5 % (42.0-52.0); Hemoglobin 13.3 g/dl (14.0-18.0); Immature Granulocytes # (auto) 0.03 K/uL (0.01-0.20); Immature Granulocytes % (auto) 0.3 %; Lymphocytes # (auto) 1.54 K/uL (1.20-3.40); Lymphocytes % (auto) 15.8 %; Mean Corpuscular Hemoglobin 31.1 pg (25.0-34.0); Mean Corpuscular Hgb Conc 34.5 g/dL (32.0-36.0); Mean Platelet Volume 10.6 fL (9.4-12.4); Monocytes # (auto) 1.01 K/uL (0.11-0.59); Monocytes % (auto) 10.3 %; Neutrophils # (auto) 6.82 K/uL (1.40-6.50); Neutrophils % (auto) 69.8 %; Platelet Count 283 K/uL (130-400); RDW Coefficient of Variation 13.6 % (11.5-14.5); RDW Standard Deviation 44.8 fL (36.4-46.3); Red Blood Count 4.28 M/uL (4.70-6.10); White Blood Count 9.77 K/ul (4.8-10.8)
[2023-05-29 15:50] LABS: Albumin Globulin Ratio 1.2 (0.9-2); Albumin Level 4.1 gm/dl (3.4-5.0); BUN Creatinine Ratio 17.5 (10-20); Calcium 10.5 mg/dl (8.6-10.3); Creatinine Clr Calc Pharmacy 87.7 ml/min; Est GFR (African American) 93.7 ml/min; Est GFR (Non-African American) 80.8 ml/min; Globulin 3.5 gm/dl (2.5-4.0); Potassium 3.6 mmol/L (3.5-5.1); Total Protein 7.6 gm/dl (6.0-8.3)
[2023-05-29 16:22] LABS: Influenza A virus by PCR Negative (Neg); Influenza B virus by PCR Negative (Neg); RSV by PCR Negative (Neg); SARS CoV2 RNA(COVID-19) Ceph NEGATIVE (Negative)
--- NOTE | 2023-05-29 17:33 | Ultrasound Report ---
US gallbladder CLINICAL HISTORY: Vomiting, transaminitis, elevated bilirubin. COMPARISON STUDY: No previous studies for comparison. FINDINGS: No hepatic lesions are identified. No intrahepatic biliary ductal dilatation is noted. The common bile duct is mildly dilated, measuring 9 mm in caliber. No common bile duct calculi identified although these may be occult by sonography. No gallstones are identified. There is no gallbladder wa ll thickening. No sonographic Irving sign was elicited. The pancreas is obscured by overlying bowel g as. There is no right hydronephrosis. Several echogenic shadowing foci within the right renal sinus f avor calculi measuring up to 8 mm. IMPRESSION: 1. No gallstones. No evidence for acute cholecystitis. 2. Mild biliary ductal dilatation. No common bile duct calculi identified although these may be occul t by sonography. Correlation with obstructive liver function tests is recommended. 3. Right nephrolithiasis. No right hydronephrosis. 4. Obscured pancreas. ACT 112: Negative or not required by law. Electronically signed by: Gus Napier M.D. 05/29/2023 5:31 PM
--- NOTE | 2023-05-29 19:23 | History & Physical Report ---
Date of Service May 29, 2023 Assessment & Plan (1) Vomiting: (2) Hyperbilirubinemia: (3) Transaminitis: Plan: Nontoxic appearing and denies fevers, chills and without leukocytosis. There appears to be an active, progressively worsening biliary process going on with obstructive pattern to LFTs and rising bilirubin in the blood. He has had rise in LFTs x last 3 months per outpatient notes. He recently started actively vomiting in the last two weeks and has poor appetite. He has poor appetite but also drinks heavily. He has no clinical evidence of pancreatitis. There is concern for choledocholithiasis, and there is no ERCP coverage at this facilty for the week. Pt is fine with transfer but wants to perform MRCP here first. Cont IVF, bowel rest and GI consult. Held Lipitor and Zetia. Consider other medication side effects as a cause. Antiemetics PRN. (4) Anxiety: Plan: chronic, stable. FLuoxetine per home regimen. (5) Alcohol abuse: Plan: Heavy alcohol use daily. Monitor for symptoms of withdrawal. Cont thiamine and folate supplementation. (6) HTN (hypertension): Plan: chronic, stable. Cont losartan per home regimen. (7) CAD (coronary artery disease): Plan: chronic, stable. Cont GDMT including ASA, Plavix, losartan. Hold Zetia/statin as above. (8) DMII (diabetes mellitus, type 2): Plan: Recently unable to tolerate higher doses of metformin, but doing ok on 500mg BID of the XR formulation. Hold this, jardiance and glipizide and use basal bolus insulin while inpatient. Patient was updated on this and verbalized understanding. DVT proph: Lovenox Full Code Dispo-to telemetry overnight, possible transfer to ERCP capable facility if MRCP is positive. I spent a total [id number] coordinating, documenting, and providing care for this patient excluding time spent in the performance of separately billed services Breana Bowers DO [facility] Hospitalist History of Present Illness Chief Complaint: vomiting x 1 week Primary Care Provider: Lenora Harding MD 57 yo M presents with vomiting frequently in the last two weeks no abdominal pain no trigger foods no appetite has had elevated LFTs x 3 months per outpatient record review has been on atorvastatin and zetia since stroke a couple of years ago medication changes include new jardiance drinks beer 4-5 per night, despite notes saying he slowed down. BMs are regular for him. Reports oily vomitus, denies blood in vomitus or in stool denies fevers and chills No other symptoms Allergies Allergy/AdvReac Type Severity Reaction Status Date / Time No Known Drug Allergies Allergy Unknown . Verified 04/13/17 14:19 Home Medications Medication Instructions Recorded Confirmed Type Thiamine Hcl (Vitamin B-1) 100 mg PO QAM #0 tabs 04/11/17 05/29/23 History aspirin 81 mg capsule 81 mg PO DAILY 05/29/23 05/29/23 History atorvastatin 80 mg tablet 80 mg PO DAILY 05/29/23 05/29/23 History baclofen 10 mg tablet 15 mg PO QID 05/29/23 05/29/23 History clopidogrel 75 mg tablet 75 mg PO DAILY 05/29/23 05/29/23 History empagliflozin 25 mg tablet 25 mg PO DAILY 05/29/23 05/29/23 History (Jardiance) ezetimibe 10 mg tablet 10 mg PO DAILY 05/29/23 05/29/23 History fluoxetine 40 mg capsule 40 mg PO DAILY 05/29/23 05/29/23 History folic acid 1 mg tablet 1 mg PO DAILY 05/29/23 05/29/23 History glipizide 2.5 mg tablet, extended 2.5 mg PO DAILY 05/29/23 05/29/23 History release 24 hr losartan 50 mg tablet 50 mg PO DAILY 05/29/23 05/29/23 History metformin 500 mg tablet,extended 500 mg PO AMHS 05/29/23 05/29/23 History release 24 hr metoprolol tartrate 50 mg tablet 50 mg PO DAILY 05/29/23 05/29/23 History thiamine HCl (vitamin B1) 100 mg 100 mg PO DAILY 05/29/23 05/29/23 History tablet Past Med/Surg History Medical History (Updated 05/29/23 @ 20:06 by Breana Bowers DO) DMII (diabetes mellitus, type 2) Anxiety History of tobacco use Focal dystonia Benign meningioma of brain Left hemiplegia Left spastic hemiparesis Adhesive capsulitis of left shoulder 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 Fatty liver Obesity Arteriosclerosis of coronary artery CAD (coronary artery disease) Cerebral atherosclerosis HTN (hypertension) Carotid stenosis, symptomatic, with infarction Hyperlipidemia Surgical History (Updated 05/29/23 @ 19:22 by Breana Bowers DO) S/P tonsillectomy and adenoidectomy S/P carotid endarterectomy Family History (Updated 05/29/23 @ 19:23 by Breana Bowers DO) Mother Diabetes Social History (Updated 05/29/23 @ 19:38 by Breana Bowers DO) Smoking Status: Never smoker Hx Alcohol Use: Yes Alcohol type: beer Alcohol Intake Frequency Comment: 4-5 drinks per day Hx Substance Use: No Preferred Language: Belarusian marital status: Current Living Situation: Spouse current occupational status: disabled Feels Safe at Home: Yes Physical Exam Physical Exam: CONSTITUTIONAL: WNWD, vitals as above, generally well-appearing, NAD EYES: PERRL, normal conjunctivae, no scleral icterus, bespectacled ENT: external ear and nose normal, MMM, poor dentition NECK: trachea midline RESPIRATORY: clear to auscultation bilaterally, no crackles, rales or wheezes, normal respiratory effort CARDIOVASCULAR: regular rate and rhythm, S1 and 2 heard without murmurs, gallops or rubs, no JVD, no peripheral edema CHEST: inspection of chest was normal GASTROINTESTINAL: soft, nontender, ND, no guarding MUSCULOSKELETAL: strength 5/5 throughout x left foot drop and some flexion of left arm from prior stroke. Left foot brace in place. He cannot extend his left fingers actively but can passively do this with opposite hand, head is normocephalic and atraumatic SKIN: warm and dry, +jaundice. NEUROLOGIC: CN 2-12 grossly intact, no sensory deficit, normal cognition, normal speech, no tremor PSYCHIATRIC: alert cooperative and oriented to person, place and time. Euthymic mood, makes good eye contact, language grossly intact, recent and remote memory grossly intact. Results & Data Results & Data Vital Signs (Past 12 Hours) Vital Signs Temp Pulse Resp BP Pulse Ox O2 Del Method 05/29/23 18:37 84 05/29/23 18:30 84 19 05/29/23 18:30 120/79 05/29/23 18:20 87 20 05/29/23 18:10 86 13 05/29/23 18:00 82 15 05/29/23 18:00 106/58 L 05/29/23 17:50 80 17 05/29/23 17:40 81 16 05/29/23 17:32 77 19 05/29/23 17:32 111/60 05/29/23 17:31 83 18 05/29/23 16:50 74 20 05/29/23 16:43 78 15 05/29/23 16:30 80 23 95 05/29/23 16:30 103/70 05/29/23 16:20 77 17 94 05/29/23 16:10 75 16 95 05/29/23 16:00 74 19 95 05/29/23 16:00 108/60 05/29/23 15:50 75 20 95 05/29/23 15:40 69 19 95 05/29/23 15:30 70 16 92 05/29/23 15:24 Room Air 05/29/23 15:20 74 23 92 05/29/23 15:10 72 21 93 05/29/23 15:00 72 19 93 05/29/23 15:00 101/63 05/29/23 14:50 73 21 93 05/29/23 14:40 72 22 91 05/29/23 14:38 72 05/29/23 14:30 70 19 92 05/29/23 14:30 97/59 L 05/29/23 14:23 73 22 05/29/23 13:58 36.6 C 77 18 108/68 96 Laboratory Results Short CBC 05/29/23 Range/Units 14:28 WBC 9.77 (4.8-10.8) K/ul Hgb 13.3 L (14.0-18.0) g/dl Hct 38.5 L (42.0-52.0) % Plt Count 283 (130-400) K/uL BMP 05/29/23 14:28 Sodium 136 Potassium 3.6 Chloride 99 Carbon Dioxide 23 BUN 18 Creatinine 1.03 Glucose 163 H Calcium 10.5 H Liver Function 05/29/23 Range/Units 14:28 Total Bilirubin 6.0 H (0.2-1.0) mg/dl AST 201 H (13-39) U/L ALT 285 H (7-52) U/L Alkaline Phosphatase 573 H (34-104) U/L Albumin 4.1 (3.4-5.0) gm/dl Diagnostic Findings Gallbladder Ultrasound 05/29/23 16:25 US gallbladder CLINICAL HISTORY: Vomiting, transaminitis, elevated bilirubin. COMPARISON STUDY: No previous studies for comparison. FINDINGS: No hepatic lesions are identified. No intrahepatic biliary ductal dilatation is noted. The common bile duct is mildly dilated, measuring 9 mm in caliber. No common bile duct calculi identified although these may be occult by sonography. No gallstones are identified. There is no gallbladder wall thickening. No sonographic Irving sign was elicited. The pancreas is obscured by overlying bowel gas. There is no right hydronephrosis. Several echogenic shadowing foci within the right renal sinus favor calculi measuring up to 8 mm. IMPRESSION: 1. No gallstones. No evidence for acute cholecystitis. 2. Mild biliary ductal dilatation. No common bile duct calculi identified although these may be occult by sonography. Correlation with obstructive liver function tests is recommended. 3. Right nephrolithiasis. No right hydronephrosis. 4. Obscured pancreas. ACT 112: Negative or not required by law. Electronically signed by: Gus Napier M.D. 05/29/2023 5:31 PM Code Status & VTE Plan VTE Prophylaxis Plan VTE Prophylaxis will be ordered: Yes
[2023-05-29] MEDS ORDERED: GLUCOSE 40% GEL 15 GM TUBE PO PRN (20:35)
[2023-05-29] MEDS ORDERED: ACETAMINOPHEN 325 MG TAB PO PRN (20:35)
[2023-05-29] MEDS ORDERED: GLUCOSE 10 TAB/TUBE PO PRN (20:35)
[2023-05-29] MEDS ORDERED: POLYETHYLENE (MIRALAX) 17 GM PACK PO PRN (20:35)
[2023-05-29] MEDS ORDERED: ONDANSETRON INJ 2 MG/ML 2 ML VIAL IV PRN (20:35)
[2023-05-29] MEDS ORDERED: GLUCAGON FOR INJ 1 MG VIAL SQ PRN (20:35)
[2023-05-29] MEDS ORDERED: DEXTROSE 50% 50 ML SYRINGE IV PRN (20:35)
[2023-05-29] MEDS ORDERED: CARBOHYDRATES FOR HYPOGLYCEMIA PO PRN (20:35)
[2023-05-29] MEDS ORDERED: ENOXAPARIN INJ 40 MG/0.4 ML SYR SQ SCH (21:00)
[2023-05-29] MEDS: INSULIN ASPART PER UNIT CHARGE SC SCH (22:15)
[2023-05-29] MEDS: BACLOFEN 10 MG TAB PO SCH (22:16)
[2023-05-29] MEDS: SODIUM CHLORIDE 0.9% 1,000 ML IV SCH (22:23)
[2023-05-30] MEDS: LANTUS PER UNIT CHARGE SQ SCH ×2 (00:03→09:43)
[2023-05-30] MEDS: ALUMINUM/MAGNESIUM SUSP 30 ML UDC PO PRN ×2 (00:27→09:23)
--- NOTE | 2023-05-30 00:44 | Magnetic Resonance Report ---
Exam(s): MRI MRCP EXAM: MR Abdomen Without Intravenous Contrast, MRCP Protocol CLINICAL HISTORY: Reason for exam: obstructive LFTs and hyperbilirubinemia. TECHNIQUE: Multiplanar magnetic resonance images of the abdomen without intravenous contrast using MRCP protocol. COMPARISON: Ultrasound dated 05/29/2023. FINDINGS: Bile ducts: Severe narrowing to near obliteration of the mid distal portion of the common bile duct as it is traversing the pancreatic head. There is questionable ill-defined area of density with scarring involving the pancreatic head versus desmoplastic reaction, cannot exclude neoplasm. No stones. Gallbladder: Unremarkable. No stones. Liver: Possible small cysts within the liver, largest measuring approximately 7 mm. Otherwise normal liver. Pancreas: There is mild distention of the mid distal pancreatic duct with nonvisualization of the duct at the level of the pancreatic head. Spleen: Unremarkable. No splenomegaly. Adrenals: Unremarkable. No mass. Kidneys and ureters: Mild bilateral perinephric stranding otherwise normal bilateral kidneys. No hydronephrosis. Stomach and bowel: Unremarkable. No obstruction. IMPRESSION: Severe narrowing to near complete obliteration involving the mid distal common bile duct with nonvisualization of the proximal portion of the pancreatic duct concerning for a mass at the level of the pancreatic head. There is scarring versus desmoplastic reaction in the pancreatic head region. Recommend further follow-up evaluation with MRI or other abdomen within class with the pancreas and with intravenous contrast. Electronically signed by: Miranda Robertson MD 05/30/23 00:43 AM
[2023-05-30 04:26] LABS: Hematocrit (blood only) 36.4 % (42.0-52.0); Hemoglobin 12.1 g/dl (14.0-18.0); Mean Corpuscular Hemoglobin 30.6 pg (25.0-34.0); Mean Corpuscular Hgb Conc 33.2 g/dL (32.0-36.0); Mean Corpuscular Volume 91.9 fL (80.0-100.0); Mean Platelet Volume 10.4 fL (9.4-12.4); Platelet Count 171 K/uL (130-400); RDW Coefficient of Variation 13.5 % (11.5-14.5); RDW Standard Deviation 45.8 fL (36.4-46.3); Red Blood Count 3.96 M/uL (4.70-6.10); White Blood Count 6.82 K/ul (4.8-10.8)
[2023-05-30 04:43] LABS: Albumin Globulin Ratio 1.1 (0.9-2); Albumin Level 3.5 gm/dl (3.4-5.0); BUN Creatinine Ratio 17.4 (10-20); Bilirubin,Total 5.4 mg/dl (0.2-1.0); Calcium 9.1 mg/dl (8.6-10.3); Creatinine Clr Calc Pharmacy 92.6 ml/min; Est GFR (African American) 107.4 ml/min; Est GFR (Non-African American) 92.6 ml/min; Globulin 3.1 gm/dl (2.5-4.0); Magnesium 1.7 mg/dl (1.7-2.4); Phosphorus 3.8 mg/dl (2.5-4.9); Potassium 4.3 mmol/L (3.5-5.1); Total Protein 6.6 gm/dl (6.0-8.3)
[2023-05-30] MEDS: SODIUM CHLORIDE 0.9% 1,000 ML IV SCH (06:58)
[2023-05-30 07:10] LABS: Estimated Average Glucose 169 mg/dl; Hemoglobin A1C 7.5 % (4.5-5.6)
[2023-05-30] MEDS: INSULIN ASPART PER UNIT CHARGE SC SCH ×3 (07:30→16:30)
--- NOTE | 2023-05-30 08:45 | Gastrointestinal Consultation ---
Date of Consultation May 30, 2023 Assessment & Plan (1) Elevated LFTs: (2) Abnormal magnetic resonance cholangiopancreatography (MRCP): Pt is a 57 yo male w n/v, weight loss, elevated LFTs, noted to have MRCP findings of severe narrowing to complete obliteration of mid distal CBD, and non visualization of proximal portion of panc duct, concerning of pancreatic head mass. - Recommend transfer to tertiary care center for EUS/ERCP intervention. We do not have biliary coverage in this hospital this week. Family prefers [facility] Supervising Physician Co-Signing Physician Notes I personally saw and evaluated the patient on 05/30/2023 with CADEN Richards and agree with her findings and plan of care. 57 y/o M with history of alcohol abuse, carotid stenosis on asa and plavix (last dose yesterday), CAD, HTN, DM2 admitted with nausea and vomiting. he reports a 25 lb weight loss over the past few weeks. On admission he was foudn to have an ALP of 488, total bilirubin of 5.4, AST 179, and ALT of 251. No fevers or leukocytosis. MRCP with severe narrowing of the distal CBD and non-visualization of the proximal pancreatic duct concerning for a pancreatic head mass. He does admit to drinking 4 beers/daily for 40 years. No known family history of GI malignancy. On exam he has notable scleral icterus but abdomen is non-tender and non- distended. Would recommend an EUS +/- ERCP for further evaluation. We do not have any biliary coverage this week so patient would need transferred for this. Continue to trend daily LFTs. IV ABX if patient develops any signs of cholangitis. Berna Mccullough, Gastroenterology and Hepatology History of Present Illness Reason for Consultation: Elevated LFTs, n/v Requesting Physician: Dr. Azeem Knox Attending Physician: Dr. Berna Mccullough History of Present Illness Pt is a 57 yo male w PMHx as noted below who presented with N/V x 2 weeks and weight loss of 25 lbs in the last 2 weeks. He denies any fever, chills, CP, SOB, abd pain, bowel habit changes. He was noted to have elevated LFTs per outpt records. On eval no signs of leukocytosis, is mildly anemic, LFTs high: Tbili 5.4, AST 179, ALT 251, Alk phos 488. Lipase 67. Flu, COVID , RSV (-) MRCP showed evere narrowing to near complete obliteration involving the mid distal common bile duct with nonvisualization of the proximal portion of the pancreatic duct concerning for a mass at the level of the pancreatic head. There is scarring versus desmoplastic reaction in the pancreatic head region. + 3-4 beers a day x 40 yrs, hx of DUI Denies family hx of GI malignancy Allergies Allergy/AdvReac Type Severity Reaction Status Date / Time No Known Drug Allergies Allergy Unknown . Verified 04/13/17 14:19 Home Medications Medication Instructions Recorded Confirmed Type Thiamine Hcl (Vitamin B-1) 100 mg PO QAM #0 tabs 04/11/17 05/29/23 History aspirin 81 mg capsule 81 mg PO DAILY 05/29/23 05/29/23 History atorvastatin 80 mg tablet 80 mg PO DAILY 05/29/23 05/29/23 History baclofen 10 mg tablet 15 mg PO QID 05/29/23 05/29/23 History clopidogrel 75 mg tablet 75 mg PO DAILY 05/29/23 05/29/23 History empagliflozin 25 mg tablet 25 mg PO DAILY 05/29/23 05/29/23 History (Jardiance) ezetimibe 10 mg tablet 10 mg PO DAILY 05/29/23 05/29/23 History fluoxetine 40 mg capsule 40 mg PO DAILY 05/29/23 05/29/23 History folic acid 1 mg tablet 1 mg PO DAILY 05/29/23 05/29/23 History glipizide 2.5 mg tablet, extended 2.5 mg PO DAILY 05/29/23 05/29/23 History release 24 hr losartan 50 mg tablet 50 mg PO DAILY 05/29/23 05/29/23 History metformin 500 mg tablet,extended 500 mg PO AMHS 05/29/23 05/29/23 History release 24 hr metoprolol tartrate 50 mg tablet 50 mg PO DAILY 05/29/23 05/29/23 History thiamine HCl (vitamin B1) 100 mg 100 mg PO DAILY 05/29/23 05/29/23 History tablet Patient History Medical History (Updated 05/30/23 @ 08:43 by CADEN Kauffman) DMII (diabetes mellitus, type 2) Anxiety History of tobacco use Focal dystonia Benign meningioma of brain Left hemiplegia Left spastic hemiparesis Adhesive capsulitis of left shoulder 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 Fatty liver Obesity Arteriosclerosis of coronary artery CAD (coronary artery disease) Cerebral atherosclerosis HTN (hypertension) Carotid stenosis, symptomatic, with infarction Hyperlipidemia Surgical History (Updated 05/29/23 @ 19:22 by Breana Bowers DO) S/P tonsillectomy and adenoidectomy S/P carotid endarterectomy Family History (Updated 05/29/23 @ 19:23 by Breana Bowers DO) Mother Diabetes Social History (Updated 05/29/23 @ 19:38 by Breana Bowers DO) Smoking Status: Never smoker Hx Alcohol Use: Yes Alcohol type: beer Alcohol Intake Frequency Comment: 4-5 drinks per day Hx Substance Use: No Preferred Language: Sinhala Communication Ability: Effective Actuarial Director Required: No marital status: Current Living Situation: Spouse current occupational status: disabled Other Information That Helps Us Care for You: No Feels Safe at Home: Yes Safety Concerns: Feels Safe At This Time Assistive Devices: Cane and Glasses Review of Systems Review of Systems: All systems reviewed & are unremarkable except as noted in HPI & below Physical Exam Constitutional: WD/WN, vitals as above well groomed, cooperative and comfortable Eyes: icteric sclera ENMT: external ear and nose normal, oropharynx normal Respiratory: normal respiratory effort, lungs clear to auscultation Cardiovascular: RRR, no murmur, no edema Gastrointestinal (Abdomen): normal bowel sounds, soft, nontender, no hepatosplenomegaly Skin: no rashes, warm and dry + jaundice (mild) Psychiatric: A+Ox3, euthymic affect Lymphatic: no lymphedema Results & Data Vital Signs (Past 12 Hours) Vital Signs Temp Pulse Pulse Resp BP Pulse Ox Pulse Ox 05/30/23 07:29 70 05/30/23 06:17 76 14 132/77 95 05/30/23 03:35 36.4 C L 75 16 124/83 05/29/23 23:16 78 05/29/23 21:23 94 05/29/23 21:23 75 16 121/83 94 O2 Del Method O2 Del Method 05/30/23 07:29 05/30/23 06:17 Room Air 05/30/23 03:35 05/29/23 23:16 05/29/23 21:23 Room Air 05/29/23 21:23 Room Air
[2023-05-30] MEDS ORDERED: FOLIC ACID 1 MG TAB PO SCH (09:00)
[2023-05-30] MEDS ORDERED: ASPIRIN 81 MG ECTAB PO SCH (09:00)
[2023-05-30] MEDS ORDERED: CLOPIDOGREL BISULFATE 75 MG TAB PO SCH (09:00)
[2023-05-30] MEDS ORDERED: LOSARTAN POTASSIUM 50 MG TAB PO SCH (09:00)
[2023-05-30] MEDS ORDERED: METOPROLOL TARTRATE 50 MG TAB PO SCH (09:00)
[2023-05-30] MEDS ORDERED: FLUoxetine HCL 20 MG CAP PO SCH (09:00)
[2023-05-30] MEDS ORDERED: THIAMINE HCL 100 MG TAB PO SCH (09:00)
[2023-05-30] MEDS: BACLOFEN 10 MG TAB PO SCH ×3 (09:23→17:43)
--- NOTE | 2023-05-30 15:11 | Hospitalist Progress Note ---
Date of Service May 30, 2023 Assessment & Plan (1) Vomiting: (2) Hyperbilirubinemia: (3) Transaminitis: Plan: Nontoxic appearing and denies fevers, chills and without leukocytosis. There appears to be an active, progressively worsening biliary process going on with obstructive pattern to LFTs and rising bilirubin in the blood. He has had rise in LFTs x last 3 months per outpatient notes. He recently started actively vomiting in the last two weeks and has poor appetite. He has no clinical evidence of pancreatitis. Initially concern for choledocholithiasis, and there is no ERCP coverage at this facilty for the week. Pt is ok with transfer but wants to perform MRCP here first. Cont IVF, bowel rest and GI consult. Held Lipitor and Zetia. Consider other medication side effects as a cause. Antiemetics PRN. 05/30 - MRCP obtained and pt was seen by GI - concern for pancreatic mass, elev. LFTs, elev. bili - recommend transfer to [facility] for EUS/ERCP. Pt accepted to [facility]. Awaiting bed. (4) Anxiety: Plan: chronic, stable. FLuoxetine per home regimen. (5) Alcohol abuse: Plan: Reportedly daily alcohol use/ beer. Monitor for symptoms of withdrawal. Cont thiamine and folate supplementation. (6) HTN (hypertension): Plan: chronic, stable. Cont losartan per home regimen. (7) CAD (coronary artery disease): Plan: chronic, stable. Cont GDMT including ASA, Plavix, losartan. Hold Zetia/statin as above. (8) DMII (diabetes mellitus, type 2): Plan: Recently unable to tolerate higher doses of metformin, but doing ok on 500mg BID of the XR formulation. Hold this, jardiance and glipizide and use basal bolus insulin while inpatient. Patient was updated on this and verbalized understanding. DVT proph: Lovenox Full Code Dispo- plan to transfer to [facility] for EUS/ERCP Admission and Anticipated Discharge Date Admission Date: May 29, 2023 Subjective Pt seen in follow up of elevated LFTs, elev. bilirubin Had MRCP done and concern for pancr. mass - contacted by GI - recommend transfer to [facility] for EUS/ERCP Pt currently laying in bed in NAD No fevers chills chest pain shortness of breath. Currently denies any abdominal pain. Presented with nausea vomiting, denies any vomiting now. Patient's mother present at the bedside Review of Systems Review of Systems: All systems reviewed & are unremarkable except as noted in Subjective Physical Exam Physical Exam: CONSTITUTIONAL: WNWD M in NAD EYES: PERRL, normal conjunctivae ENT: external ear and nose normal, MMM NECK: supple RESPIRATORY: clear to auscultation bilaterally, no crackles, rales or wheezes, normal respiratory effort CARDIOVASCULAR: regular rate and rhythm, S1 and 2 heard without murmurs CHEST: inspection of chest normal GASTROINTESTINAL: soft, nontender, ND, no guarding MUSCULOSKELETAL: strength 5/5 throughout x left foot drop and some flexion of left arm from prior stroke. He cannot extend his left fingers actively but can passively do this with opposite hand, head is normocephalic and atraumatic SKIN: warm and dry, +jaundice. NEUROLOGIC: awake, alert, oriented, answers appropriately, no facial asymmetry, speech fluent Results & Data Results & Data Vital Signs (Past 12 Hours) Vital Signs Temp Pulse Pulse Resp BP BP Pulse Ox 05/30/23 14:36 77 23 121/76 97 05/30/23 13:30 83 22 05/30/23 13:20 80 20 05/30/23 13:18 15 05/30/23 13:10 84 18 05/30/23 13:00 77 20 05/30/23 12:50 80 20 05/30/23 12:40 86 22 05/30/23 12:20 82 20 05/30/23 12:10 85 15 05/30/23 12:00 83 22 05/30/23 11:50 82 22 05/30/23 11:40 83 21 05/30/23 11:39 83 22 05/30/23 11:20 80 19 05/30/23 11:10 78 14 05/30/23 11:00 76 20 05/30/23 11:00 129/80 05/30/23 10:50 82 15 05/30/23 10:40 78 20 05/30/23 10:30 73 23 05/30/23 10:20 77 22 05/30/23 10:10 76 15 05/30/23 10:00 107/62 05/30/23 10:00 78 20 05/30/23 09:50 78 19 05/30/23 09:40 75 15 05/30/23 09:30 82 20 05/30/23 09:20 79 17 05/30/23 09:20 89 18 124/78 97 05/30/23 09:10 76 21 05/30/23 09:00 124/78 05/30/23 09:00 75 14 92 05/30/23 08:50 75 18 99 05/30/23 08:40 78 20 94 05/30/23 08:30 74 18 94 05/30/23 08:20 78 15 93 05/30/23 08:00 129/78 05/30/23 08:00 74 15 05/30/23 07:50 70 18 05/30/23 07:40 70 17 05/30/23 07:30 71 15 05/30/23 07:29 70 05/30/23 07:20 71 18 05/30/23 07:10 71 14 05/30/23 07:00 70 16 05/30/23 07:00 134/76 05/30/23 06:50 69 19 05/30/23 06:40 72 17 05/30/23 06:30 72 18 05/30/23 06:20 72 18 05/30/23 06:17 76 14 132/77 95 05/30/23 06:10 72 15 05/30/23 06:00 132/77 05/30/23 06:00 75 19 05/30/23 05:50 72 16 05/30/23 03:35 36.4 C L 75 16 124/83 O2 Del Method 05/30/23 14:36 05/30/23 13:30 05/30/23 13:20 05/30/23 13:18 05/30/23 13:10 05/30/23 13:00 05/30/23 12:50 05/30/23 12:40 05/30/23 12:20 05/30/23 12:10 05/30/23 12:00 05/30/23 11:50 05/30/23 11:40 05/30/23 11:39 05/30/23 11:20 05/30/23 11:10 05/30/23 11:00 05/30/23 11:00 05/30/23 10:50 05/30/23 10:40 05/30/23 10:30 05/30/23 10:20 05/30/23 10:10 05/30/23 10:00 05/30/23 10:00 05/30/23 09:50 05/30/23 09:40 05/30/23 09:30 05/30/23 09:20 05/30/23 09:20 Room Air 05/30/23 09:10 05/30/23 09:00 05/30/23 09:00 05/30/23 08:50 05/30/23 08:40 05/30/23 08:30 05/30/23 08:20 05/30/23 08:00 05/30/23 08:00 05/30/23 07:50 05/30/23 07:40 05/30/23 07:30 05/30/23 07:29 05/30/23 07:20 05/30/23 07:10 05/30/23 07:00 05/30/23 07:00 05/30/23 06:50 05/30/23 06:40 05/30/23 06:30 05/30/23 06:20 05/30/23 06:17 Room Air 05/30/23 06:10 05/30/23 06:00 05/30/23 06:00 05/30/23 05:50 05/30/23 03:35 Laboratory Results 05/30/23 05/30/23 05/30/23 Range/Units 13:17 07:51 03:34 WBC 6.82 (4.8-10.8) K/ul RBC 3.96 L (4.70-6.10) M/uL Hgb 12.1 L (14.0-18.0) g/dl Hct 36.4 L (42.0-52.0) % MCV 91.9 (80.0-100.0) fL MCH 30.6 (25.0-34.0) pg MCHC 33.2 (32.0-36.0) g/dL RDW Std Deviation 45.8 (36.4-46.3) fL RDW Coeff of Bess 13.5 (11.5-14.5) % Plt Count 171 (130-400) K/uL MPV 10.4 (9.4-12.4) fL Immature Gran % (Auto) % Neut % (Auto) % Lymph % (Auto) % Phelps % (Auto) % Eos % (Auto) % Baso % (Auto) % Neut # (Auto) (1.40-6.50) K/uL Lymph # (Auto) (1.20-3.40) K/uL Phelps # (Auto) (0.11-0.59) K/uL Eos # (Auto) (0.00-0.50) K/uL Baso # (Auto) (0.00-0.20) K/uL Immature Gran # (Auto) (0.01-0.20) K/uL Sodium 139 (136-145) mmol/L Potassium 4.3 (3.5-5.1) mmol/L Chloride 104 (98-107) mmol/L Carbon Dioxide 27 (21-32) mmol/L Anion Gap 8 (3-11) BUN 16 (6-23) mg/dl Creatinine 0.92 (0.6-1.4) mg/dl Est Cr Clr Drug Dosing 92.6 ml/min Est GFR ( Amer) 107.4 ml/min Est GFR (Non-Af Amer) 92.6 ml/min BUN/Creatinine Ratio 17.4 (10-20) Glucose 118 H (70-99(Fasting)) mg/dl POC Glucose 84 96 (70-99) mg/dl Estimat Average Glucose 169 mg/dl Hemoglobin A1c 7.5 H (4.5-5.6) % Calcium 9.1 (8.6-10.3) mg/dl Phosphorus 3.8 (2.5-4.9) mg/dl Magnesium 1.7 (1.7-2.4) mg/dl Total Bilirubin 5.4 H (0.2-1.0) mg/dl AST 179 H (13-39) U/L ALT 251 H (7-52) U/L Alkaline Phosphatase 488 H (34-104) U/L Total Protein 6.6 (6.0-8.3) gm/dl Albumin 3.5 (3.4-5.0) gm/dl Globulin 3.1 (2.5-4.0) gm/dl Albumin/Globulin Ratio 1.1 (0.9-2) Lipase (11-82) U/L SARS-CoV-2 (PCR) (Negative) Influenza Type A (PCR) (Neg) Influenza Type B (PCR) (Neg) RSV (RT-PCR) (Neg) 05/29/23 05/29/23 05/29/23 Range/Units 21:28 15:35 14:28 WBC 9.77 (4.8-10.8) K/ul RBC 4.28 L (4.70-6.10) M/uL Hgb 13.3 L (14.0-18.0) g/dl Hct 38.5 L (42.0-52.0) % MCV 90.0 (80.0-100.0) fL MCH 31.1 (25.0-34.0) pg MCHC 34.5 (32.0-36.0) g/dL RDW Std Deviation 44.8 (36.4-46.3) fL RDW Coeff of Bess 13.6 (11.5-14.5) % Plt Count 283 (130-400) K/uL MPV 10.6 (9.4-12.4) fL Immature Gran % (Auto) 0.3 % Neut % (Auto) 69.8 % Lymph % (Auto) 15.8 % Phelps % (Auto) 10.3 % Eos % (Auto) 2.5 % Baso % (Auto) 1.3 % Neut # (Auto) 6.82 H (1.40-6.50) K/uL Lymph # (Auto) 1.54 (1.20-3.40) K/uL Phelps # (Auto) 1.01 H (0.11-0.59) K/uL Eos # (Auto) 0.24 (0.00-0.50) K/uL Baso # (Auto) 0.13 (0.00-0.20) K/uL Immature Gran # (Auto) 0.03 (0.01-0.20) K/uL Sodium 136 (136-145) mmol/L Potassium 3.6 (3.5-5.1) mmol/L Chloride 99 (98-107) mmol/L Carbon Dioxide 23 (21-32) mmol/L Anion Gap 14 H (3-11) BUN 18 (6-23) mg/dl Creatinine 1.03 (0.6-1.4) mg/dl Est Cr Clr Drug Dosing 87.7 ml/min Est GFR ( Amer) 93.7 ml/min Est GFR (Non-Af Amer) 80.8 ml/min BUN/Creatinine Ratio 17.5 (10-20) Glucose 163 H (70-99(Fasting)) mg/dl POC Glucose 118 H (70-99) mg/dl Estimat Average Glucose mg/dl Hemoglobin A1c (4.5-5.6) % Calcium 10.5 H (8.6-10.3) mg/dl Phosphorus (2.5-4.9) mg/dl Magnesium (1.7-2.4) mg/dl Total Bilirubin 6.0 H (0.2-1.0) mg/dl AST 201 H (13-39) U/L ALT 285 H (7-52) U/L Alkaline Phosphatase 573 H (34-104) U/L Total Protein 7.6 (6.0-8.3) gm/dl Albumin 4.1 (3.4-5.0) gm/dl Globulin 3.5 (2.5-4.0) gm/dl Albumin/Globulin Ratio 1.2 (0.9-2) Lipase 67 (11-82) U/L SARS-CoV-2 (PCR) NEGATIVE (Negative) Influenza Type A (PCR) Negative (Neg) Influenza Type B (PCR) Negative (Neg) RSV (RT-PCR) Negative (Neg) Medications Administered Current Inpatient Medications Acetaminophen (Acetaminophen 325 Mg Tab) 650 mg PO Q4H PRN PRN Reason: Pain or Fever Stop: 06/28/23 20:34 Al Hydrox/Mg Hydrox/Simethicone (Aluminum/Magnesium Susp 30 Ml Udc) 15 ml PO Q4H PRN PRN Reason: Dyspepsia Stop: 06/28/23 20:34 Last Admin: 05/30/23 09:23 Dose: 15 ml Aspirin (Aspirin 81 Mg Ectab) 81 mg PO DAILY REPLACED BY [facility] Stop: 06/29/23 08:59 Last Admin: 05/30/23 09:23 Dose: 81 mg Baclofen (Baclofen 10 Mg Tab) 15 mg PO QID REPLACED BY [facility] Stop: 06/28/23 20:59 Last Admin: 05/30/23 13:24 Dose: 15 mg Clopidogrel Bisulfate (Clopidogrel Bisulfate 75 Mg Tab) 75 mg PO DAILY REPLACED BY [facility] Stop: 06/29/23 08:59 Last Admin: 05/30/23 09:25 Dose: 75 mg Dextrose (Dextrose 50% 50 Ml Syringe) 25 - 50 ml IV UD PRN; Protocol PRN Reason: Hypoglycemia Protocol Stop: 06/28/23 20:34 Enoxaparin Sodium (Enoxaparin Inj 40 Mg/0.4 Ml Syr) 40 mg SQ HS KAMRAN Stop: 06/28/23 20:59 Last Admin: 05/29/23 22:18 Dose: 40 mg Fluoxetine HCl (Fluoxetine Hcl 20 Mg Cap) 40 mg PO DAILY KAMRAN Stop: 06/29/23 08:59 Last Admin: 05/30/23 09:25 Dose: 40 mg Folic Acid (Folic Acid 1 Mg Tab) 1 mg PO DAILY KAMRAN Stop: 06/29/23 08:59 Last Admin: 05/30/23 09:25 Dose: 1 mg Glucagon (Glucagon For Inj 1 Mg Vial) 1 mg SQ UD PRN; Protocol PRN Reason: Hypoglycemia Protocol Stop: 06/28/23 20:34 Glucose (Glucose 10 Tab/Tube) 4 - 8 tab PO UD PRN; Protocol PRN Reason: Hypoglycemia Treatment Stop: 06/28/23 20:34 Glucose (Glucose 40% Gel 15 Gm Tube) 15 - 30 gm PO UD PRN; Protocol PRN Reason: Hypoglycemia Protocol Stop: 06/28/23 20:34 Insulin Aspart (Insulin Aspart Per Unit Charge) 0 units SC ACHS KAMRAN Stop: 06/28/23 20:59 Last Admin: 05/30/23 13:19 Dose: Not Given Insulin Glargine (Lantus Per Unit Charge) 10 units SQ BID KAMRAN Stop: 06/28/23 20:59 Last Admin: 05/30/23 09:43 Dose: 5 units Losartan Potassium (Losartan Potassium 50 Mg Tab) 50 mg PO DAILY KAMRAN Stop: 06/29/23 08:59 Last Admin: 05/30/23 09:25 Dose: 50 mg Metoprolol Tartrate (Metoprolol Tartrate 50 Mg Tab) 50 mg PO DAILY KAMRAN Stop: 06/29/23 08:59 Last Admin: 05/30/23 09:25 Dose: 50 mg Miscellaneous (Carbohydrates For Hypoglycemia ) 15 - 30 gm PO UD PRN PRN Reason: Hypoglycemia Protocol Stop: 06/28/23 20:34 Ondansetron HCl (Ondansetron Inj 2 Mg/Ml 2 Ml Vial) 4 mg IV Q6H PRN PRN Reason: Nausea Stop: 06/28/23 20:34 Polyethylene Glycol (Polyethylene (Miralax) 17 Gm Pack) 17 gm PO DAILY PRN PRN Reason: Constipation Stop: 06/28/23 20:34 Thiamine HCl (Thiamine Hcl 100 Mg Tab) 100 mg PO DAILY KAMRAN Stop: 06/29/23 08:59 Last Admin: 05/30/23 09:25 Dose: 100 mg (1) Vomiting Nausea presence: with nausea Vomiting type: unspecified Qualified Code(s): R11.2 - Nausea with vomiting, unspecified
--- NOTE | 2023-05-30 18:01 | Discharge Summary ---
Date of Service May 30, 2023 Admission HPI Per Admitting Provider 57 yo M presents with vomiting frequently in the last two weeks no abdominal pain no trigger foods no appetite has had elevated LFTs x 3 months per outpatient record review has been on atorvastatin and zetia since stroke a couple of years ago medication changes include new jardiance drinks beer 4-5 per night, despite notes saying he slowed down. BMs are regular for him. Reports oily vomitus, denies blood in vomitus or in stool denies fevers and chills No other symptoms Admission Exam Per Admitting Provider CONSTITUTIONAL: WNWD, vitals as above, generally well-appearing, NAD EYES: PERRL, normal conjunctivae, no scleral icterus, bespectacled ENT: external ear and nose normal, MMM, poor dentition NECK: trachea midline RESPIRATORY: clear to auscultation bilaterally, no crackles, rales or wheezes, normal respiratory effort CARDIOVASCULAR: regular rate and rhythm, S1 and 2 heard without murmurs, gallops or rubs, no JVD, no peripheral edema CHEST: inspection of chest was normal GASTROINTESTINAL: soft, nontender, ND, no guarding MUSCULOSKELETAL: strength 5/5 throughout x left foot drop and some flexion of left arm from prior stroke. Left foot brace in place. He cannot extend his left fingers actively but can passively do this with opposite hand, head is normocephalic and atraumatic SKIN: warm and dry, +jaundice. NEUROLOGIC: CN 2-12 grossly intact, no sensory deficit, normal cognition, normal speech, no tremor PSYCHIATRIC: alert cooperative and oriented to person, place and time. Euthymic mood, makes good eye contact, language grossly intact, recent and remote memory grossly intact. Principal Diagnosis Elevated LFTs, elevated bilirubin vomiting Discharge Exam CONSTITUTIONAL: WNWD M in NAD EYES: PERRL, normal conjunctivae ENT: external ear and nose normal, MMM NECK: supple RESPIRATORY: clear to auscultation bilaterally, no crackles, rales or wheezes, normal respiratory effort CARDIOVASCULAR: regular rate and rhythm, S1 and 2 heard without murmurs CHEST: inspection of chest normal GASTROINTESTINAL: soft, nontender, ND, no guarding MUSCULOSKELETAL: strength 5/5 throughout x left foot drop and some flexion of left arm from prior stroke. He cannot extend his left fingers actively but can passively do this with opposite hand, head is normocephalic and atraumatic SKIN: warm and dry, +jaundice. NEUROLOGIC: awake, alert, oriented, answers appropriately, no facial asymmetry, speech fluent Discharge Data Allergies Allergy/AdvReac Type Severity Reaction Status Date / Time No Known Drug Allergies Allergy Unknown . Verified 04/13/17 14:19 Consultations 05/29/23 19:17 ED Decision to Admit Stat 05/29/23 19:55 Consult Gastroenterology Routine Ordered Studies 05/29/23 16:25 US gallbladder Stat FINDINGS: No hepatic lesions are identified. No intrahepatic biliary ductal dilatation is noted. The common bile duct is mildly dilated, measuring 9 mm in caliber. No common bile duct calculi identified although these may be occult by sonography. No gallstones are identified. There is no gallbladder wall thickening. No sonographic Irving sign was elicited. The pancreas is obscured by overlying bowel gas. There is no right hydronephrosis. Several echogenic shadowing foci within the right renal sinus favor calculi measuring up to 8 mm. IMPRESSION: 1. No gallstones. No evidence for acute cholecystitis. 2. Mild biliary ductal dilatation. No common bile duct calculi identified although these may be occult by sonography. Correlation with obstructive liver function tests is recommended. 3. Right nephrolithiasis. No right hydronephrosis. 4. Obscured pancreas. 05/29/23 19:40 MR MRCP Routine FINDINGS: Bile ducts: Severe narrowing to near obliteration of the mid distal portion of the common bile duct as it is traversing the pancreatic head. There is questionable ill-defined area of density with scarring involving the pancreatic head versus desmoplastic reaction, cannot exclude neoplasm. No stones. Gallbladder: Unremarkable. No stones. Liver: Possible small cysts within the liver, largest measuring approximately 7 mm. Otherwise normal liver. Pancreas: There is mild distention of the mid distal pancreatic duct with nonvisualization of the duct at the level of the pancreatic head. Spleen: Unremarkable. No splenomegaly. Adrenals: Unremarkable. No mass. Kidneys and ureters: Mild bilateral perinephric stranding otherwise normal bilateral kidneys. No hydronephrosis. Stomach and bowel: Unremarkable. No obstruction. IMPRESSION: Severe narrowing to near complete obliteration involving the mid distal common bile duct with nonvisualization of the proximal portion of the pancreatic duct concerning for a mass at the level of the pancreatic head. There is scarring versus desmoplastic reaction in the pancreatic head region. Recommend further follow-up evaluation with MRI or other abdomen within class with the pancreas and with intravenous contrast. Hospital Course (1) Vomiting: (2) Hyperbilirubinemia: (3) Transaminitis: Nontoxic appearing and denies fevers, chills and without leukocytosis. There appears to be an active, progressively worsening biliary process going on with obstructive pattern to LFTs and rising bilirubin in the blood. He has had rise in LFTs x last 3 months per outpatient notes. He recently started actively vomiting in the last two weeks and has poor appetite. He has no clinical evidence of pancreatitis. Initially concern for choledocholithiasis, and there is no ERCP coverage at this facilty for the week. Pt is ok with transfer but wants to perform MRCP here first. Cont IVF, bowel rest and GI consult. Held Lipitor and Zetia. Consider other medication side effects as a cause. Antiemetics PRN. 05/30 - MRCP obtained and pt was seen by GI - concern for pancreatic mass, elev. LFTs, elev. bili - recommend transfer to [facility] for EUS/ERCP. Pt to be transferred to [facility]. (4) Anxiety: chronic, stable. FLuoxetine per home regimen. (5) Alcohol abuse: Reportedly daily alcohol use/ beer. Monitor for symptoms of withdrawal. Cont thiamine and folate supplementation. (6) HTN (hypertension): chronic, stable. Cont losartan per home regimen. (7) CAD (coronary artery disease): chronic, stable. Cont GDMT including ASA, Plavix, losartan. Hold Zetia/statin as above. (8) DMII (diabetes mellitus, type 2): Recently unable to tolerate higher doses of metformin, but doing ok on 500mg BID of the XR formulation. Hold this, jardiance and glipizide and use basal bolus insulin while inpatient. Patient was updated on this and verbalized understanding. Total Time Total Time Spent Total Time Spent (In Minutes): 40 Discharge Plan Discharge Items Patient Disposition: Transfer Acute Care Hospital Reason For Visit: VOMITING, ELEVATED BILIRUBIN/TRANSAMINITIS Discharge Diagnosis: Elevated LFTs, elevated bilirubin vomiting Activity: Per Instructions section Non-emergency contact: In File Operator Call non-emergency contact if: you have any medication questions and your symptoms worsen Follow-up/Referrals: Mati Sanabria MD [Primary Care Provider] - Diet: Nothing by Mouth and Other - See Diet Comment Diet Comment: ok to take meds Addtl Attending Provider Instructions: Pt presented with vomiting, found to have elevated bilirubin and LFTs. MRCP concerning for pancreatic mass, GI recommends EUS/ERCP. For these procedures patient needs to be transferred as no biliary GI coverage available at [facility] at this time. Pending Studies at Discharge: No Stand-Alone Forms: My [facility] Skilled Items Patient informed of condition?: Yes DNR: No Discharge Level of Care: Other Communicable Disease: No Discharge Prognosis: Other Lines: Peripheral IV Urinary Catheter: No Medications and DC Order Prescriptions: Continued Thiamine Hcl (Vitamin B-1) 100 MG tablet 100 mg PO QAM Qty: 0 fluoxetine 40 mg capsule 40 mg PO DAILY atorvastatin 80 mg tablet 80 mg PO DAILY glipizide 2.5 mg tablet extended release 24hr 2.5 mg PO DAILY metformin 500 mg tablet extended release 24 hr 500 mg PO [facility] Jardiance 25 mg tablet 25 mg PO DAILY Patient Comments: Pt isnt too sure if he stills takes this medication clopidogrel 75 mg tablet 75 mg PO DAILY baclofen 10 mg tablet 15 mg PO QID ezetimibe 10 mg tablet 10 mg PO DAILY aspirin 81 mg Capsule 81 mg PO DAILY losartan 50 mg tablet 50 mg PO DAILY thiamine HCl (vitamin B1) 100 mg Tablet 100 mg PO DAILY metoprolol tartrate 50 mg tablet 50 mg PO DAILY folic acid 1 mg tablet 1 mg PO DAILY Discharge Orders: Discharge Order (Routine); Ordered 05/30/23 Ordered By: Azeem Knox Admission Data Admit Date/Time: 05/29/23 19:03 Attending Provider: Azeem Knox Admit Provider: Breana Bowers Primary Care Provider: Mati Sanabria Other Providers: Grace Kingston; Breana Bowers
--- NOTE | 2023-06-04 06:12 | Coding Query ---
CODING QUERY To promote full compliance with coding requirements relating to patient care, provider participation is requested in all cases of yacht master uncertainty. Please assist us with the question(s) below: Coding Question(s): Pt admitted with vomiting,transaminitis & hyperbilirubeimia. GI consulted and MRCP revealed complete obliteration of common bile duct. Neoplasm of pancreatic head suspected. Pt transferred to [place] for ERCP. Please check below the phrase that describes the MRCP finding. Thanks for your help! ELENA Higgins [facility] Physician's Response(s): ____x____ Patient had suspected/probable (MRCP) obliteration of the common bile duct Patient did not have obliteration of the common bile duct. Other: / Please document: Principal Diagnosis: "that condition established after study, to be chiefly responsible for occasioning the admission of the patient to the hospital for care." Co-Existing Principal Diagnosis: "when two or more diagnoses equally meet the criteria for principal diagnosis as determined by the circumstances of admission, diagnostic work up, and/or therapy provided, and the Alphabetic Index, Tabular List, or another coding guideline does not provide sequencing direction, any one of the diagnoses may be sequenced first." "When the physician has documented what appears to be a current diagnosis in the body of the record, but has not included the diagnosis in the final diagnostic statement, the physician should be asked whether the diagnosis should be added." (Source Coding [facility] 2 QTR90. p3-4) ANALI
== END 2023-05-30 20:11 | disposition short-term general hospital (02) ==
LOC: ED 13:57 → SUATTDRO 19:03 → EDINP 19:03 → INTOOBSV 19:03 → EDINP 20:35

== ENCOUNTER 2023-09-17 15:01 | Inpatient (IN) ==
--- OUTSIDE RECORDS SUMMARY | 2023-09-17 15:07 | External Medical Summary | Summary of Care ---
Author Name Unknown Organization [facility] Address [address] [place] [address] Phone [phone] Care Team Providers Care Smoking Pipe Maker Name Role Phone Lenora Harding MD Primary Care Provid er Reason for Visit * Reason Comments Outpatient Testing Encounter Details Date Type Department Care Team (Late st Contact Info) Description 09/15/2023 10:30 AM EDT Laboratory Laboratory [facility] [address] [place] [phone] [place], Lab Scenery [address] [place] [address] Pancreatic cancer metastasized to liver (HCC) Allergies No known active allergiesdocumented as of this encounter (statuses as of 09/15/2023) Medications Medication Sig Dispensed Refills Start Date [...] Take by mouth as needed. 0 Active diphenhydrAMINE HCl 25 MG Oral Tablet [...] by mouth in the morning. 90 Tablet 09/16/2022 Active OneTouch Verio In Vitro Strip (Glucose Blood)Indications:Typ e 2 diabetes mellitus with hemoglobin A1c goal of less than 7.0% ([facility]) USE UP TO FOUR TIMES DAILY FOR BLOOD GLUCOSE TESTING 100 Strip 11 03/03/2023 Active metFORMIN HCl ER 500 MG Oral Tablet Extended Release 24 Hour (Glucophage XR)Indications:Type 2 diabetes mellitus with hemoglobin A1c goal of less than 7.0% ([facility]) Take 1 Tablet by mouth in the morning and 1 Tablet before bedtime. 180 Tablet 3 04/29/2023 Active Baclofen 10 MG Oral Tablet (Lioresal)Indications :Left hemiplegia (HCC),Spasm of muscle TAKE 1 AND 1/2 TABLETS BY MOUTH FOUR TIMES A DAY 540 Tablet 1 05/01/2023 Active FLUoxetine HCl 40 MG Oral Capsule (PROzac) Take 1 Capsule by mouth in the morning. 0 Active Ondansetron HCl 8 MG Oral Tablet (Zofran)Indications:P ancreatic cancer metastasized to liver (HCC) Take 1 Tablet by mouth every 8 hours as needed for Nausea. 30 Tablet 2 06/29/2023 Active Additional Information Patient not taking.Reported on 07/07/2023 Prochlorperazine Maleate 10 MG Oral Tablet (Compazine)Indication s:Pancreatic cancer metastasized to liver (HCC) Take 1 Tablet by mouth every 6 hours as needed for Nausea. 30 Tablet 2 06/29/2023 Active Additional Information Patient not taking.Reported on 07/07/2023 Lidocaine-Prilocaine 2.5-2.5 % External Cream (Emla)Indications:Hein creatic cancer metastasized to liver (HCC) APPLY TO SKIN OVER MEDIPORT & COVER 1HR PRIOR TO ACCESSING. 30 g 1 06/29/2023 Active Additional Information Patient not taking.Reported on 07/07/2023 oxyCODONE HCl 5 MG Oral Tablet (Oxy IR)Indications:Pancre atic cancer metastasized to liver (HCC) Take 1 Tablet by mouth every 6 hours as needed for Pain, Severe. 30 Tablet 0 07/14/2023 Active BD Pen Needle Stefanie 2nd Gen 32G X 4 MM (Insulin Pen Needle) Use to inject insulin daily as directed. 100 Each 0 07/25/2023 Active Metoprolol Tartrate 50 MG Oral Tablet (Lopressor)Indication s:Coronary artery disease involving cachil dehe heart, unspecified vessel or lesion type, unspecified whether angina present Take 1 Tablet by mouth in the morning. 90 Tablet 1 07/25/2023 Active Pantoprazole Sodium 40 MG Oral Tablet Delayed Release (Protonix) Take 1 Tablet by mouth in the morning and 1 Tablet before bedtime. 30 minutes before the first meal of the day. Do not crush, split or chew the tablet. 60 Tablet 5 08/03/2023 Active Lantus SoloStar 100 UNIT/ML Subcutaneous Solution Pen-injectorIndicatio ns:Pancreatic cancer metastasized to liver (HCC),Type 2 diabetes mellitus with hyperglycemia, without long-term current use of insulin (HCC) Inject 10 Units under the skin in the morning. 15 mL 5 09/08/2023 Active documented as of this encounter (statuses as of 09/15/2023) Active Problems Problem Noted Date Diagnosed Date Encounter for antineoplastic chemotherapy 2023 FHx: pancreatic cancer 06/16/2023 Pancreatic cancer metastasized to liver 06/02/20 Gastric outlet obstruction 06/01/2023 Type 2 diabetes mellitus, wi thout long-term current use of insulin 05/31/2023 Pancreatic mass 05/31/2023 Transaminitis 05/31/2023 Hyperbilirubinemia 05/31/2023 Obstructive jaundice 05/31/2023 Malnutrition of moderate degree 05/31/2023 Hypertension 03/24/2023 Benign meningioma of brain 03/24/2023 [...] as of this encounter (statuses as of 09/15/2023) Resolved Problems Problem Noted Date Diagnosed Date [...] as of this encounter (statuses as of 09/15/2023) Immunizations Name Administration Dates Next Due Pneumococcal Conjugate Vacci ne, 20-valent ([id number]) 06/03/2023(Deferred: Patient Refused) Seasonal Influenza, PF, 6 M & above, IM , (FluLaval or Fluzone) 06/03/2023(Deferred: Patient Refused) TDAP (age 10 and older)(Boostrix) 02/07/2012 Zoster Vaccine Recombinant (Shingrix) 03/16/2021 ,09/11/2020 documented as of this encounter Social History Tobacco Use Types Packs/Day Years Used Date Smoking Tobacco: Never Passive Smoke Exposure: Current Smokeless Tobacco: Never Alcohol Use Standard Drinks/Week Comments Not Currently 0 (1 standard drink = 0.6 oz [...] Upcoming Encounters Date Type Department Care Team (Latest Contact Info) Description 09/15/2023 11:00 AM EDT Office Visit Hematology/Oncology [facility] [address] [place] [phone] Hannah Guillory CRNP [address] [place] [address] [place] [address] PENDING VISIT DRAFT 09/15/2023 11:30 AM EDT Hem/Onc Treatment Hematology/Oncology Treatment, [place] [address] [place] [address] [place], Chair 7 Hem Onc Scenery [address] [place] [address] Arrived 10/10/2023 1:45 PM EDT Imaging Radiology [facility] 1st Floor, [place] [address] [place] [address] 02/22/2024 11:50 AM EDT Office Visit [facility] [address] [place] [phone] Mary Calderón DO [address] [place] [address] Pending Results Name Type Priority Associated Diagnoses Date /Time COMPREHENSIVE METABOLIC PANEL Lab STAT Pancreatic cancer metastasized to liver (HCC) 09/15/2023 10:30 AM EDT Scheduled Procedures Name Priority Associated Diagnoses Date/Ti me COLONOSCOPY FLEXIBLE PROXIMAL DIAGNOSTIC Recall History of colon polyps Health Maintenance Due Date Last Done Comments COVID-19 Vaccine (#1) 1971 Pneumococcal Vaccine: Pediatrics (0 to 5 Years) and At-Risk Patients (6 to 64 Years) (1 of 2 - PCV) 1972 Diabetic Eye Exam 1984 Diabetic Foot Exam 1984 Hepatitis B (1 of 3 - 19+ 3-dose series) 1985 DTaP,Tdap,and Td Vaccines (2 - Td or Tdap) 02/06/2022 02/07/2012 Depression Screening 03/16/2023 03/16/2022, 03/03/20 16 Influenza Vaccine (FLU shot) (Season Ended) 2024 03/12/2018 (Declined), 09/22/2017 (Refused) HbA1c 02/25/2024 08/25/2023, 05/05, 02/09/2023 Albumin/Creatinine Ratio 05/11/2024 05/11/2023, 04/05 GFR 09/07/2024 09/08/2023, 08/04, 08/18/2023, Additional history exists COLONOSCOPY-EVERY 5 YRS AGES 18-100 07/19/2027 07/19/2022, 07/19/2022, 04/12/2017, Additional history exists Zoster Vaccines Completed 03/16/2021, 09/11/2020 GARDASIL-HPV IMMUNIZATION SERIES Aged Out No longer eligible based on patient's age to complete this topic MENINGOCOCCAL (MENACTRA/MENVEO) Aged Out No longer eligible based on patient's age to complete this topic documented as of this encounter Medical Devices Implanted Type Area Guinea Pig Breeder Device Identifier Shelf Expiration Date Model / Serial / Lot Port 8fr 1lumen Infusion St Latexfree Power Implantable - [id number] Implanted:Qty: 1 on 07/07/2023 by Acosta Mathur MD at OR [facility] Left: Chest CR BARD : PERIPHERAL VASCULAR [id number] 05/04/2024 [id number] / / [id number] Stent Axios [id number] - [id number] Implanted:Qty: 1 on 08/11/2023 by Jayashree Alston MD at OR [facility] [employer] : ENDOSCOPY [id number] 06/19/2025 [id number] / / [id number] Stent Biliary Adult L30mm Dia1 - [id number] Implanted:Qty: 1 on 08/11/2023 by Jayashree Alston MD at OR [facility] BIBI : SANDRA MTZ [id number] 06/21/2026 [id number] / / [id number] documented as of this encounter Procedures Procedure Name Priority Date/Time Associated Diagnosis Comments DIFFERENTIAL, AUTOMATED STAT 09/15/2023 10:30 AM EDT Pancreatic cancer metastasized to liver (HCC) CBC STAT 09/15/2023 10:30 AM EDT Pancreatic cancer metastasized to liver (HCC) CBC STAT 09/15/2023 10:30 AM EDT Pancreatic cancer metastasized to liver (HCC) documented in this encounter Results * (ABNORMAL) DIFFERENTIAL, AUTOMATED (09/15/2023 10:30 AM EDT) WBC 2.98(L) 4.00 - 10.80 K/uL 09/15/2023 10:39 AM EDT [facility] 56-02 Neutrophils % 69.5 40.0 - 75.0 % 09/15/2023 10:39 AM EDT [facility] 56-02 Lymphocytes % 22.1 18.0 - 42.0 % 09/15/2023 10:39 AM EDT [facility] 56-02 Monocytes % 6.7 1.0 - 11.0 % 09/15/2023 10:39 AM EDT [facility] 56-02 Eosinophils % 1.0 0.0 - 6.0 % 09/15/2023 10:39 AM EDT [facility] 56-02 Basophils % 0.7 0.0 - 2.0 % 09/15/2023 10:39 AM EDT [facility] 56-02 Absolute Neutrophils 2.07 1.80 - 7.70 K/uL 09/15/2023 10:39 AM EDT [facility] 56-02 Absolute Lymphocytes 0.66(L) 1.00 - 4.80 K/ul 09/15/2023 10:39 AM EDT [facility] 56-02 Absolute Monocytes 0.20 0.00 - 1.10 K/uL 09/15/2023 10:39 AM EDT [facility] 56-02 Absolute Eosinophils 0.03 0.00 - 0.70 K/uL 09/15/2023 10:39 AM EDT [facility] 56-02 Absolute Basophils 0.02 0.00 - 0.20 K/uL 09/15/2023 10:39 AM EDT [facility] 56-02 Blood Venous blood specimen / Unknown Venipuncture / Unknown 09/15/2023 10:30 AM EDT 09/15/2023 10:30 AM EDT Ryne Acharya MD LAB BLOOD ORDERABLES [facility] [address]- [address] [place] [address] * (ABNORMAL) CBC (09/15/2023 10:30 AM EDT) WBC 2.98(L) 4.00 - 10.80 K/uL 09/15/2023 10:39 AM EDT [place] [address] RBC 3.28 4.50 - 5.25 M/uL 09/15/2023 10:39 AM EDT [place] [address] HGB 8.8(L) 14.0 - 16.8 g/dL 09/15/2023 10:39 AM EDT [place] [address] HCT 28.3(L) 40.0 - 48.4 % 09/15/2023 10:39 AM EDT [address] MCV 86.3 82.0 - 99.5 fL 09/15/2023 10:39 AM EDT [place] [address] MCH 26.8 27.0 - 34.0 pg 09/15/2023 10:39 AM EDT [place] [address] MCHC 31.1 32.0 - 36.0 g/dL 09/15/2023 10:39 AM EDT [place] [address] RDW 16.9 11.5 - 15.5 % 09/15/2023 10:39 AM EDT [address] PLT 318 140 - 400 K/uL 09/15/2023 10:39 AM EDT [address] MPV 8.8 6.6 - 11.1 fL 09/15/2023 10:39 AM T [facility] Blood Venous blood specimen / Unknown Venipuncture / Unknown 09/15/2023 10:30 AM EDT 09/15/2023 10:30 AM EDT Ryne Acharya MD LAB BLOOD ORDERABLES [place] [address] [place] [address] documented in this encounter Visit Diagnoses Diagnosis Pancreatic cancer metastasized to liver (HCC) Malignant neoplasm of pancreas, part unspecified documented in this encounter Advance Directives Documents on File Type Date Recorded Patient Director Of Knowledge Management Expl 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 Question Answer Comments Discussion of Advance Directives occurred with: Patient Care Teams Smoking Pipe Maker Relationship Specialty Start Date End Date Lenora Harding MD [address] [place] [address] PCP - General Family Medicine 12/31/21 documented as of this encounter
--- OUTSIDE RECORDS SUMMARY | 2023-09-17 15:07 | External Medical Summary | Summary of Care ---
Author Name Unknown Organization [facility] Address [address] [place] [address] Phone [phone] Care Team Providers Care Accounts Receivable Collector Name Role Phone Lenora Harding MD Primary Care Provid er Reason for Visit * Reason Comments Chemotherapy C3/D8 - Gemzar/Abrax ane * Episode Based Medications (Routine) - Authorized Specialty Diagnoses / Procedures Referred By Yury t Referred To Contact Diagnoses Encounter for antineoplastic chemotherapy Pancreatic cancer metastasized to liver (HCC) Procedures [place] PACLITAXEL PROTEIN BOUND [place] IN GEMCITABINE HCL NOS 200MG Ryne Acharya MD [address] [place] [address] [place] [address] Anc Hem/Onc [address] [address] Referral ID Status Reason Start Date Expiration Date V isits Requested Visits Authorized [id number] Authorized 06/27/2023 12/26/2023 999 [id number] Encounter Details Date Type Department Care Team (Latest Contact Info) Description 09/15/2023 11:30 AM EDT Hem/Onc Treatment Hematology/Oncolog y Treatment, [address] [address] [place] Chair 7 Hem Onc [address] [place] [address] Encounter for antineoplastic chemotherapy*; Pancreatic cancer metastasized to liver (HCC) Allergies [...] the morning. 90 Tablet 3 09/16/2022 Active OneTouch Verio [...] Oral Tablet (Lopressor)Indication s:Coronary artery disease involving alutiiq heart, unspecified vessel or lesion type, unspecified [...] Next Due Pneumococcal Conjugate Vacci ne, 20-valent ([id number]) 06/03/2023(Deferred: Patient Refused) Seasonal Influenza, PF, 6 [...] on file documented as of this encounter Nursing Notes * Martha Rosa RN - 09/15/2023 3:18 PM EDT Goals: Patient will remain free from injury. Possible barriers to meeting goals: ambulating with IV pole Stability of the patient: Moderately stable - low risk of patient condition declining or worsening Summary regarding today's goals: Met: pt remained free of harm today Patient tolerated treatment well without any acute issues or problems. Patient left facility in stable condition and denied any further needs. * Martha Rosa RN - 09/15/2023 3:10 PM EDT Chair 5. Port accessed. Patient saw CADEN Perla today -- see OV note for details. Cr 1.2, hgb decreased from 10.1 to 8.8, AST increased from 33 to 86 and ALT increased from 48 to 73. Alk Phos 228. Per adlea Perlaay to treat today. Patient came in wheelchair and is accompanied by mother, Nicole, today. Chemotherapy/Immunotherapy agents: Abraxane and GEMZAR Consent for chemotherapy drug treatment complete, dated, and signed? yes, date - 06/22/2023 Treatment lab parameters met? Yes -- see above regarding some labs Has treatment weight changed > than 10%? No Treatment preauthorized? Yes VITALS There were no vitals filed for this visit. Urine protein: N/A Patient education completed for treatment? Yes Blood transfusion consent signed and complete? NA Return appointment scheduled? Yes Patient had provider visit today? Yes - Ok to release order and treat per provider Functional Status: Functional status at today's visit: Ambulatory and capable of all selfcare but unable to carry out any work activities. Up and about more than 50% of waking hours The drug name, dose, infusion volume, rate and route of administration, expiration date and time, appearance and physical integrity of the drug and rate set on the pump and sequencing of drug administration (as applicable) were verified by me and second sign-in RN. Patient was assessed for symptoms or adverse side effects during treatment. Safety and Risk for Injury Patient will remain free from injury. Ensure appropriate safety devices are available. Provide and maintain safe environment. documented in this encounter Plan of Treatment Upcoming Encounters Date Type Department Care Team (Late st Contact Info) Description 09/21/2023 10:00 AM EDT [facility] [address] [place] [phone] [place] [address] [place] [address] 09/29/2023 8:50 AM EDT Laboratory Laboratory [address] [place] [phone] [address] [place] [address] 09/29/2023 9:30 AM EDT Office Visit Hematology/Oncology [facility] [address] [place] [phone] Hannah Guillory, CADEN [address] [place] [address] 09/29/2023 10:00 AM EDT Hem/Onc Treatment Hematology/Oncology Treatment, [place] [address] [place] [phone] [place], Chair 2 Hem Onc [place] [address] [address] [place] [address] 10/06/2023 10:00 AM EDT Laboratory Laboratory [facility] [place] [address] [place] [phone] [place], Lab Scenery [address] [place], [place] [address] 10/06/2023 11:00 AM EDT Hem/Onc Treatment Hematology/Oncology Treatment, [place] [address] [facility] [address] [place], [place] [phone] [place], Chair 2 Hem Onc [address]enery [address] [place] [address] 10/10/2023 1:45 PM EDT Imaging Radiology [address], [place] [address] [facility] [place] [address] 10/20/2023 12:30 PM EDT Laboratory Laboratory [facility] [place] [address] [place] [phone] [place] Lab [facility] [address] [facility] [place] [facility] [place] [address] 10/20/2023 1:15 PM EDT Office Visit Hematology/Oncology [facility] [address] [place], [place] [phone] Ryne Acharya MD [address] [facility] [place], [place] [address] 10/20/2023 1:45 PM EDT Hem/Onc Treatment Hematology/Oncology Treatment, [place] [address] [facility], [place] [phone] [place], Chair 11 Hem Onc [facility] [address] [facility] [place], [place] [address] 02/22/2024 11:50 AM EDT Office Visit [facility] [address] [place] [phone] Mary Calderón DO [address] [place] [address] Scheduled Procedures Name Priority Associated Diagnoses Date/Ti [...] 02/09/2023 Albumin/Creatinine Ratio 05/11/2024 05/11/2023, 04/05 GFR 09/14/2024 09/15/2023, 04/0 10/2023, 08/25/2023, Additional history exists COLONOSCOPY-EVERY 5 YRS AGES 18-100 07/19/2027 07/19/2022, 07/19/2022, 04/12/2017, Additional history exists Zoster Vaccines Completed 03/16/2021, 09/11/2020 GARDASIL-HPV IMMUNIZATION SERIES Aged Out No longer eligible based on patient's age to complete this topic MENINGOCOCCAL (MENACTRA/MENVEO) Aged Out No longer eligible based on patient's age to complete this topic documented as of this encounter Medical Devices Implanted Type Area Professor Of Family Medicine Device Identifier Shelf Expiration Date Model / Serial / Lot Port 8fr 1lumen Infusion St Latexfree Power Implantable - [id number] Implanted:Qty: 1 on 07/07/2023 by Acosta Mathur MD at OR [facility] Left: Chest CR BARD : PERIPHERAL VASCULAR [id number] 05/04/2024 [id number] / / [id number] Stent Axios [id number] - [id number] Implanted:Qty: 1 on 08/11/2023 by Jayashree Alston MD at OR [facility] [employer] : ENDOSCOPY [id number] 06/19/2025 [id number] / / [id number] Stent Biliary Adult L30mm Dia1 - [id number] Implanted:Qty: 1 on 08/11/2023 by Jayashree Alston MD at OR [facility] BIBI : SANDRA MTZ [id number] 06/21/2026 [id number] / / [id number] documented as of this encounter Visit Diagnoses Diagnosis Encounter for antineoplastic chemotherapy- Primary Pancreatic cancer metastasized to liver (HCC) Malignant neoplasm of pancreas, part unspecified documented in this encounter Administered Medications Active Administered Medications - up to 3 most recent administrations Medication Order MAR Action Action Date Dose Rate Site diphenhydrAMINE (Benadryl) inj 50 mg 50 mg, IV Push, ONCE PRN Other, Hypersensitivity Reaction, Starting on Mon09/15/23 at 1150, Until 09/16/23 at 1149, For 24 hours EPINEPHrine 1 MG/ML inj 0.3 mg 0.3 mg, Intramuscular, ONCE PRN Other, Hypersensitivity Reaction or Anaphylaxis, Starting on Mon09/15/23 at 1150, Until 09/16/23 at 1149, For 24 hours hEParin 100 UNIT/ML Lock Flush inj 500 Units 500 Units (5 mL), IV Lock, PRN Other, IV Flush, Starting on Mon09/15/23 at 1150, Until 09/16/23 at 1149, For 24 hours, Do not flush if lock, PICC, or central line not in place; IV infusing or unable to flush. Given 09/15/2023 2:04 PM EDT 500 Units Hydrocortisone Sod Suc (PF) (Solu-Cortef) inj 100 mg 100 mg, IV Push, ONCE PRN Other, Hypersensitivity Reaction, Starting on Mon09/15/23 at 1150, Until 09/16/23 at 1149, For 24 hours LORAzepam (Ativan) tab 0.5 mg 0.5 mg, Oral, ONCE PRN Anxiety, Nausea, Starting on Mon09/15/23 at 1300, Until Discontinued NSS infusion Intravenous, at 50 mL/hr, PRN, Starting on Mon09/15/23 at 1300, Until Discontinued, Maintenance line Start Infusion 09/15/2023 12:00 PM EDT 50 mL/hr oxygen GAS Inhalation, OXYGEN, First dose on Mon09/15/23 at 1600, Until Discontinued, Device/Managed by: Low Flow Device, Goal SPO2 (%): 91-95, Starting Device: Nasal Cannula, Initial Flow Rate (LPM): 2, Lowest Support: Nasal Cannula: Flow 0-6 LPM. Titrate up/down by 1 LPM., Higher Support: Non-Rebreather (NRB) Mask: Minimum of 10 LPM. Titrate to maintain bag inflation., Titration Interval: Q2 minutes and as needed., Notify Provider: For sudden DECREASE in resting SPO2 to less than 85% and when escalating delivery device., Wean patient off Oxygen when the oxygen saturation is greater than or equal to 93% sodium chloride 0.9 % flush central line 10 mL 10 mL, IV Push, PRN Other, IV Flush, Starting on Mon09/15/23 at 1150, Until 09/16/23 at 1149, For 24 hours, Do not flush if lock, PICC, or central line not in place; IV infusing or unable to flush. Given 09/15/2023 2:04 PM EDT 10 mL Inactive Administered Medications - up to 3 most recent administrations Medication Order MAR Action Action Date Dose Rate Site gemcitabine (Gemzar) 2,000 mg in NSS 250 mL infusion 2,000 mg (rounded from 2,050 mg = 1,000 mg/m2 2.05 m2 Treatment Plan BSA from Recorded weight), IV Piggyback, ONCE, 1 dose, On Mon09/15/23 at 1400, Administer over 30 Minutes Start Infusion 09/15/2023 1:35 PM EDT 2,000 mg 500 mL/hr ondansetron (Zofran) tab 8 mg 8 mg, Oral, ONCE, On Mon09/15/23 at 1300, For 1 dose, Give 30 minutes prior to chemotherapy. Given 09/15/2023 12:07 PM EDT 8 mg PACLitaxel protein-bound (Abraxane) inj 260 mg 260 mg (rounded from 256.25 mg = 125 mg/m2 2.05 m2 Treatment Plan BSA from Recorded weight), IV Piggyback, ONCE, 1 dose, On Mon09/15/23 at 1330, Administer over 30 Minutes, PROTECT FROM LIGHT Use Dedicated line Without Filter Start Infusion 09/15/2023 12:57 PM EDT 260 mg 104 mL/hr documented in this encounter Advance Directives Documents on File Type Date Recorded Patient Team Leader Surgery Michelle [place] POLST 08/03/2023 10:10 AM POLST (Morenita dos santos DNR) Latest Code Status on File Code Status Date Activated Date Inactivated Comments Full Code 05/30/2023 10:13 PM 06/03/2023 2:34 PM Th is order reflects the patients wishes and were consensually agreed upon. Question Answer Comments Discussion of Advance Directives occurred with: Patient Care Teams Accounts Receivable Collector Relationship Specialty Start Date End Date Lenora Harding MD [address] [facility] [place] [address] PCP - General Family Medicine 12/31/21 documented as of this encounter
--- OUTSIDE RECORDS SUMMARY | 2023-09-17 15:08 | External Medical Summary ---
Author Name Unknown Address Unknown Organization K09:[facility] [place] [address] Laboratory Report Ordering Provider Test Date Status GINNY PATEL 09/08/2023 08:45:26 Final Observation Date Value Abnormality Reference (Units ) Status WBC, Total 09/08/2023 08:45:26 8.70 4.00-10.8 0 (K/uL) Final RBC 09/08/2023 08:45:26 3.78 4.50-5.25 (M/uL) Final Hemoglobin 09/08/2023 08:45:26 10.1 Below low normal 14 .0-16.8 (g/dL) Final HCT 09/08/2023 08:45:26 33.6 Below low normal 40. 0-48.4 (%) Final MCV 09/08/2023 08:45:26 88.9 82.0-99.5 (fL) Final MCH 09/08/2023 08:45:26 26.7 27.0-34.0 (pg) Final MCHC 09/08/2023 08:45:26 30.1 32.0-36.0 (g/dL) Final RDW 09/08/2023 08:45:26 17.6 11.5-15.5 (%) Final Platelets 09/08/2023 08:45:26 576 Above high normal 14 0-400 (K/uL) Final MPV 09/08/2023 08:45:26 8.2 6.6-11.1 ( fL) Final Performing Location [facility] [place] [place] [address]
--- OUTSIDE RECORDS SUMMARY | 2023-09-17 15:08 | External Medical Summary | Summary of Care ---
Author Name Unknown Organization [facility] Address [address] [facility] [place] [address] Phone [phone] Care Team Providers Care Direct Marketing Executive Name Role Phone Lenora Harding MD Primary Care Provid er Encounter Details Date Type Department Care Team (Late st Contact Info) Description 08/30/2023 Telephone Hematology/Oncology [facility] [place] 200 [facility] [place] [address] Ryne Acharya MD 200 [facility] [place] [address] Allergies No known active allergiesdocumented as of this encounter (statuses as of 08/30/2023) Medications Medication Sig Dispensed Refills Start Date [...] hemoglobin A1c goal of less than 7.0% ([facility]) USE UP TO FOUR TIMES DAILY FOR BLOOD GLUCOSE TESTING 100 Strip 11 03/03/2023 Active metFORMIN HCl ER 500 MG Oral Tablet Extended Release 24 Hour (Glucophage XR)Indications:Type 2 diabetes mellitus with hemoglobin A1c goal of less than 7.0% ([facility]) Take 1 Tablet by mouth [...] Pain, Severe. 30 Tablet 0 07/14/2023 Active Lantus SoloStar 100 UNIT/ML Subcutaneous Solution Pen-injectorIndicatio ns:Pancreatic cancer metastasized to liver (HCC),Type 2 diabetes mellitus with hyperglycemia, without long-term current use of insulin (HCC) Inject 8 Units under the skin in the morning. 15 mL 0 07/25/2023 Active BD Pen Needle Stefanie 2nd Gen 32G X 4 MM (Insulin Pen Needle) Use to inject insulin daily as directed. 100 Each 0 07/25/2023 Active Metoprolol Tartrate 50 MG Oral Tablet (Lopressor)Indication s:Coronary artery disease involving [place] heart, unspecified vessel or lesion type, unspecified [...] the tablet. 60 Tablet 5 08/03/2023 Active documented as of this encounter (statuses as of 08/30/2023) Active Problems Problem Noted Date Diagnosed Date [...] as of this encounter (statuses as of 08/30/2023) Resolved Problems Problem Noted Date Diagnosed Date [...] as of this encounter (statuses as of 08/30/2023) Immunizations Name Administration Dates Next Due Pneumococcal Conjugate Vacci ne, 20-valent ([id number]) 06/03/2023(Deferred: Patient Refused) Seasonal Influenza, PF, 6 [...] encounter Miscellaneous Notes * Telephone Encounter - Berna Mtz OSA - 08/30/2023 3:[address] is scheduled for 10/09 pt is aware and aware of prep documented in this encounter Plan of Treatment Upcoming Encounters Date Type Department Care Team (Late st Contact Info) Description 09/08/2023 8:30 AM EDT Laboratory Laboratory [facility] [place] [address] [place], [place] [phone] [place], Lab Scenery [address] [facility], [place] [address] 09/08/2023 9:30 AM EDT [facility] [phone] [place], Chair 5 Hem Onc Scenery [address] [place] [address] 09/13/2023 1:00 PM EDT Office Visit Gastroenterology, [facility] [address] Kacey Cárdenas CRNP 132 [facility] [address] 09/15/2023 10:30 AM EDT Laboratory Laboratory [facility] [place] [address] [place] [phone] [place], Lab Scenery 200 [facility] [place] [facility], [place] [address] 09/15/2023 11:00 AM EDT Office Visit Hematology/Oncology [facility] [place] [address] [place] [phone] Hannah Guillory CRNP 400 [facility] [place] [address] 09/15/2023 11:30 AM EDT Hem/Onc Treatment Hematology/Oncology Treatment, [place] 200 [facility], [place] [phone] [place], Chair 7 Hem Onc Scenery [address] [place] [address] 10/10/2023 1:45 PM EDT Imaging Radiology [facility] 1st [facility], [address] [place] [address] 02/22/2024 11:50 AM EDT Office Visit [facility] [address] [place] [address] Mary Calderón, [address] [place] [address] Scheduled Procedures Name Priority Associated Diagnoses Date/Ti [...] (Refused) Depression Screening 03/16/2023 03/16/2022, 03/03/20 16 HbA1c 02/25/2024 08/25/2023, 05/05, 02/09/2023 Albumin/Creatinine Ratio 05/11/2024 05/11/2023, 04/05 GFR 08/24/2024 08/25/2023, 08/03, 08/07/2023, Additional history exists COLONOSCOPY-EVERY 5 YRS AGES 18-100 07/19/2027 07/19/2022, 07/19/2022, 04/12/2017, Additional history exists Zoster Vaccines Completed 03/16/2021, 09/11/2020 GARDASIL-HPV IMMUNIZATION SERIES Aged Out No longer eligible based on patient's age to complete this topic MENINGOCOCCAL (MENACTRA/MENVEO) Aged Out No longer eligible based on patient's age to complete this topic documented as of this encounter Medical Devices Implanted Type Area Six Sigma Project Manager Device Identifier Shelf Expiration Date Model / Serial / Lot Port 8fr 1lumen Infusion St Latexfree Power Implantable - [id number] Implanted:Qty: 1 on 07/07/2023 by Acosta Mathur MD at OR [facility] Left: Chest CR BARD : PERIPHERAL VASCULAR [id number] 05/04/2024 [id number] / / [id number] Stent Axios [id number] - [id number] Implanted:Qty: 1 on 08/11/2023 by Jayashree Alston MD at OR [facility] [employer] : ENDOSCOPY [id number] 06/19/2025 [id number] / / [id number] Stent Biliary Adult L30mm Dia1 - [id number] Implanted:Qty: 1 on 08/11/2023 by Jayashree Alston MD at OR [facility] COOK : SANDRA MTZ [id number] 06/21/2026 [id number] / / [id number] documented as of this encounter Advance Directives Documents on File Type Date Recorded Patient Annealing Torch Operator Expl 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 Question Answer Comments Discussion of Advance Directives occurred with: Patient Care Teams Direct Marketing Executive Relationship Specialty Start Date End Date Lenora Harding MD [address] [facility] [place] [address] PCP - General Family Medicine 12/31/21 documented as of this encounter
--- OUTSIDE RECORDS SUMMARY | 2023-09-17 15:08 | External Medical Summary | Summary of Care ---
Author Name Unknown Organization [facility] Address [address] [place] [address] Phone [phone] Care Team Providers Care Fingerer Name Role Phone Lenora Harding MD Primary Care Provid er Reason for Visit * Reason Comments Chemotherapy Abraxane/Gemzar. * Episode Based Medications (Routine) - Authorized Specialty Diagnoses / Procedures Referred By Contjoseline t Referred To Contact Diagnoses Encounter for antineoplastic chemotherapy Pancreatic cancer metastasized to liver (HCC) Procedures NE PACLITAXEL PROTEIN BOUND NE IN GEMCITABINE HCL NOS 200MG Ryne Acharya MD 200 [place] [address] Anc Hem/Onc [facility] [place] [address] [place] [phone] Referral ID Status Reason Start Date Expiration Date V isits Requested Visits Authorized [id number] Authorized 06/27/2023 12/26/2023 999 99 Encounter Details Date Type Department Care Team (Latest Contact Info) Description 07/10/2023 1:00 PM EST Hem/Onc Treatment Hematology/Oncolog y Treatment, [address] [address] [place], Chair 2 Hem On[address] [place] [address] Encounter for antineoplastic chemotherapy*; Pancreatic cancer metastasized to liver (HCC) Allergies No known active allergiesdocumented as of this encounter (statuses as of 08/29/2023) Medications Medication Sig Dispensed Refills Start Date [...] Additional Information Patient not taking.Reported on 07/07/2023 documented as of this encounter (statuses as of 08/29/2023) Active Problems Problem Noted Date Diagnosed Date Encounter for antineoplastic chemotherapy 2023 FHx: pancreatic cancer 06/16/2023 Pancreatic cancer metastasized to liver 06/02/20 Gastric outlet obstruction 06/01/2023 Type 2 diabetes mellitus, wi [facility] long-term current use of insulin 05/31/2023 Pancreatic [...] as of this encounter (statuses as of 08/29/2023) Resolved Problems Problem Noted Date Diagnosed Date [...] as of this encounter (statuses as of 08/29/2023) Immunizations Name Administration Dates Next Due Pneumococcal Conjugate Vacci ne, 20-valent ([id number]) 06/03/2023(Deferred: Patient Refused) Seasonal Influenza, PF, 6 [...] Sign Reading Time Taken Comments Blood Pressure 100/64 07/10/2023 12:50 PM EST Pulse 70 07/10/2023 12:50 PM EST Temperature 36.7 C (98.1 F) 07/10/2023 12:[address] Respiratory Rate 18 07/10/2023 12:50 PM EST Oxygen Saturation 95% 07/10/2023 12:50 PM EST Inhaled Oxygen Concentration - - Weight 83.5 kg (184 lb) 07/10/2023 12:50 PM EST Height - - Body Mass Index 26.4 05/30/2023 9:33 PM EST documented in this encounter Nursing Notes * Maria T Pacheco RN - 07/10/2023 3:18 PM EST Goals: Patient will remain free from injury. Possible barriers to meeting goals: Fall risk d/t ambulation with IV pole. Stability of the patient: Moderately unstable - medium risk of patient condition declining or worsening Summary regarding today's goals: Met: Patient remained free of injury. Functional status at today's visit: Restricted in physically strenuous activity but ambulatory and able to carry out work on a light orsedentary nature, e.g. light house work, office work The drug name, dose, infusion volume, rate and route of administration, expiration date and time, appearance and physical integrity of the drug and rate set on the pump and sequencing of drug administration (as applicable) were verified by me and second sign-in RN. Patient was assessed for symptoms or adverse side effects during treatment. Patient tolerated procedure well. Discharged in stable condition. * Maria T Pacheco RN - 07/10/2023 1:06 PM EST Chair 6. Patient arrived for C1D1 abraxane/gemzar treatment. Patient was oriented to treatment process and treatment room. Patient did not have any questions at this time. Call jacobo was given to patient and was instructed on how to use it if any any questions or symptoms. Patient verbalized understanding. VAD accessed. Chemo agents Abraxane/Gemzar. Appetite good Nausea/Vomiting no Diarrhea no Constipation no Mucositis no Fatigue no Bleeding no Infection no Rash no Numbness tingling no Pain no Radiation no ABN Labs WNL for treatment Alt in Tx: no Return in 1 week. Safety and Risk for Injury Patient will remain free from injury. Ensure appropriate safety devices are available. Provide and maintain safe environment. documented in this encounter Plan of Treatment Upcoming Encounters Date Type Department Care Team (Late st Contact Info) Description 08/30/2023 9:00 AM EDT Scheduled Telephone Palliative Medicine, [address] 5th Floor [place] [address] [place], Nurse Palliative Medicine [address] [phone] 08/30/2023 11:15 AM EDT Office Visit Hematology/Oncology [facility] [address] [place], [place] [phone] Ryne Acharya MD [address] [place], [place] [address] 09/08/2023 8:30 AM EDT Laboratory Laboratory [facility] [address] [place], [place] [phone] [place], Lab [facility] 200 [place] [address] 09/08/2023 9:30 AM EDT Hem[facility] [address] [place], [place] [phone] [place], Chair 5 Hem On[address] [place], [place] [address] 09/13/2023 1:00 PM EDT Office Visit Gastroenterology, [facility] [address] [place] [address] Kacey Cárdenas CRNP 132 [facility] [place] [address] 09/15/2023 10:30 AM EDT Laboratory Laboratory [facility] [address] [place], [place] [phone] [place], Lab [facility] 200 [facility] [place], [place] [address] 09/15/2023 11:00 AM EDT Office Visit Hematology/Oncology [facility] [address] [place], [place] [phone] Hannah Guillory CRNP [address] [place] [address] 09/15/2023 11:30 AM EDT Hem/Onc Treatment Hematology/Oncology Treatment, [place] [address] [place] [address] [place], Chair 7 Hem Onc Scenery [address] [place], [place] [address] 02/22/2024 11:50 AM EDT Office Visit [facility] [address] [place] [address] Mary Calderón, [address] [place] [address] Scheduled Procedures Name Priority Associated [...] this encounter Medical Devices Implanted Type Area Devops Device Identifier Shelf Expiration Date Model / Serial / Lot Port 8fr 1lumen Infusion St Latexfree Power Implantable - [id number] Implanted:Qty: 1 on 07/07/2023 by Acosta Mathur MD at OR [facility] Left: Chest CR BARD : PERIPHERAL VASCULAR [id number] 05/04/2024 [id number] / / [id number] documented as of this encounter Visit Diagnoses Diagnosis Encounter for antineoplastic chemotherapy- Primary Pancreatic cancer metastasized to liver (HCC) Malignant neoplasm of pancreas, part unspecified documented in this encounter Administered Medications Inactive Administered Medications - up to 3 most recent administrations Medication Order MAR Action Action Date Dose Rate Site gemcitabine (Gemzar) 2,000 mg in NSS 250 mL infusion 2,000 mg (rounded from 2,050 mg = 1,000 mg/m2 2.05 m2 Treatment Plan BSA from Recorded weight), IV Piggyback, ONCE, 1 dose, On Mon07/10/23 at 1500, Administer over 30 Minutes Start Infusion 07/10/2023 2:34 PM EST 2,000 mg 500 mL/hr hEParin 100 UNIT/ML Lock Flush inj 500 Units 500 Units (5 mL), IV Lock, PRN Other, IV Flush, Starting on Mon07/10/23 at 1258, Until Mon07/10/23 at 1920, For 24 hours, Do not flush if lock, PICC, or central line not in place; IV infusing or unable to flush. Given 07/10/2023 3:06 PM EST 500 Units NSS infusion Intravenous, at 50 mL/hr, PRN, Starting on Mon07/10/23 at 1400, Until Mon07/10/23 at 1920, Maintenance line Start Infusion 07/10/2023 1:03 PM EST 50 mL/hr ondansetron (Zofran) tab 8 mg 8 mg, Oral, ONCE, On Mon07/10/23 at 1400, For 1 dose, Give 30 minutes prior to chemotherapy. Given 07/10/2023 1:14 PM EST 8 mg PACLitaxel protein-bound (Abraxane) inj 260 mg 260 mg (rounded from 256.25 mg = 125 mg/m2 2.05 m2 Treatment Plan BSA from Recorded weight), IV Piggyback, ONCE, 1 dose, On Mon07/10/23 at 1430, Administer over 30 Minutes, PROTECT FROM LIGHT Use Dedicated line Without Filter Start Infusion 07/10/2023 2:01 PM EST 260 mg 104 mL/hr sodium chloride 0.9 % flush central line 10 mL 10 mL, IV Push, PRN Other, IV Flush, Starting on Mon07/10/23 at 1258, Until Mon07/10/23 at 1920, For 24 hours, Do not flush if lock, PICC, or central line not in place; IV infusing or unable to flush. Given 07/10/2023 3:06 PM EST 10 mL documented in this encounter Advance Directives Documents on File Type Date Recorded Patient Aircraft Layout Worker Expl 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 Question Answer Comments Discussion of Advance Directives occurred with: Patient Care Teams Fingerer Relationship Specialty Start Date End Date Lenora Harding MD [address] [facility] [place] [address] PCP - General Family Medicine 12/31/21 documented as of this encounter
--- OUTSIDE RECORDS SUMMARY | 2023-09-17 15:08 | External Medical Summary | Summary of Care ---
Author Name Unknown Organization [facility] Address [address] [place] [address] Phone [phone] Care Team Providers Care Summer Counselor Name Role Phone Lenora Harding MD Primary Care Provid er Reason for Visit * Reason Onset Date Comments Order Request 09/08/2023 potassium Encounter Details Date Type Department Care Team (Late st Contact Info) Description 09/08/2023 Telephone Hematology/Oncology Treatment, [place] [address] [place] [address] Ryne Acharya MD 200 [place] [address] Order Request (potassium) Allergies No known active allergiesdocumented as of this encounter (statuses as of 09/08/2023) Medications Medication Sig Dispensed Refills Start Date [...] hemoglobin A1c goal of less than 7.0% ([facility]) Take 1 Tablet by mouth in the [...] Oral Tablet (Lopressor)Indication s:Coronary artery disease involving [place] heart, unspecified vessel or lesion type, unspecified [...] as of this encounter (statuses as of 09/08/2023) Active Problems Problem Noted Date Diagnosed Date [...] as of this encounter (statuses as of 09/08/2023) Resolved Problems Problem Noted Date Diagnosed Date [...] as of this encounter (statuses as of 09/08/2023) Immunizations Name Administration Dates Next Due Pneumococcal Conjugate Vacci ne, 20-valent ([id number]) 06/03/2023(Deferred: Patient Refused) Seasonal Influenza, PF, 6 [...] as of this encounter Miscellaneous Notes * Addendum Note - Silvano Fay MD - 09/08/2023 11:14 AM EDTAddended by: SILVANO FAY on: 09/08/2023 11:14 AM Modules accepted: Orders * Telephone Encounter - Ruby Avila RN - 09/08/2023 11:[address] Fay, patient to receive 20mEq KCl IV with treatment today. Dr Fay: please place alteration. Thanks! documented in this encounter Plan of Treatment Upcoming Encounters Date Type Department Care Team (Late st Contact Info) Description 09/13/2023 1:00 PM EDT Office Visit Gastroenterology, [facility] [place] [address] Kacey Cárdenas CRNP 132 [facility] [place] [address] 09/15/2023 10:30 AM EDT Laboratory Laboratory [facility] [place] 200 [facility] [place] [phone] [place], Lab [facility] 200 [facility] [place] [address] 09/15/2023 11:00 AM EDT Office Visit Hematology/Oncology [facility] [place] 200 [facility] [place] [phone] Hannah Guillory CRNP 400 [facility] [place] [address] 09/15/2023 11:30 AM EDT Hem/Onc Treatment Hematology/Oncology Treatment, [place] [address] [facility] [address] [place] [phone] [place], Chair 7 Hem Onc [facility] 200 [facility] [place] [address] 10/10/2023 1:45 PM EDT Imaging Radiology [facility] 1st [facility] 132 [facility] [place] [address] 02/22/2024 11:50 AM EDT Office Visit [facility] [address] [place] [address] Mary Calderón, [address] [place] [address] Scheduled Procedures Name Priority Associated [...] this encounter Medical Devices Implanted Type Area Hose Wrapper Device Identifier Shelf Expiration Date Model / Serial / Lot Port 8fr 1lumen Infusion St Latexfree Power Implantable - [id number] Implanted:Qty: 1 on 07/07/2023 by Acosta Mathur MD at OR [facility] Left: Chest CR BARD : PERIPHERAL VASCULAR [id number] 05/04/2024 [id number] / / [id number] Stent Axios [id number] - [id number] Implanted:Qty: 1 on 08/11/2023 by Jayashree Alston MD at OR [facility] [employer] : ENDOSCOPY [id number] 06/19/2025 [id number] / / [id number] Stent Biliary Adult L30mm Dia1 - [id number] Implanted:Qty: 1 on 08/11/2023 by Jayashree Alston MD at OR [facility] COOK : SANDRA MTZ [id number] 06/21/2026 [id number] / / [id number] documented as of this encounter Visit Diagnoses Diagnosis Pancreatic cancer metastasized to liver (HCC)- Primary Malignant neoplasm of pancreas, part unspecified documented in this encounter Advance Directives Documents on File Type Date Recorded Patient Well Puller Head Expl 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 Question Answer Comments Discussion of Advance Directives occurred with: Patient Care Teams Summer Counselor Relationship Specialty Start Date End Date Lenora Harding MD [address] [place] [facility] [place] [address] PCP - General Family Medicine 12/31/21 documented as of this encounter
--- OUTSIDE RECORDS SUMMARY | 2023-09-17 15:08 | External Medical Summary | Summary of Care ---
Author Name Unknown Organization [facility] Address [address] [place] [address] Phone [phone] Care Team Providers Care Manager Mail Name Role Phone Lenora Harding MD Primary Care Provid er Encounter Details Date Type Department Care Team (Late st Contact Info) Description 09/08/2023 Orders Only Hematology/Oncology, [address] [phone] Silvano Franklin MD 200 [place] [address] Allergies No known active allergiesdocumented as of [...] hemoglobin A1c goal of less than 7.0% ([facility]) Take 1 Tablet by mouth [...] Oral Tablet (Lopressor)Indication s:Coronary artery disease involving [place] heart, unspecified vessel or lesion type, unspecified [...] Next Due Pneumococcal Conjugate Vacci ne, 20-valent ([id number]) 06/03/2023(Deferred: Patient Refused) Seasonal Influenza, PF, 6 [...] 09/13/2023 1:00 PM EDT Office Visit Gastroenterology, [facility] [address] [place] [address] Kacey Cárdenas CRNP 132 [place] [address] 09/15/2023 10:30 AM EDT Laboratory Laboratory [facility] [place] [address] [place] [address] [place], Lab Scenery [address] [facility] [place] [address] 09/15/2023 11:00 AM EDT Office Visit Hematology/Oncology [facility] [place] [address] [place] [phone] Hannah Guillory CRNP [address] [place] [address] 09/15/2023 11:30 AM EDT Hem/Onc Treatment Hematology/Oncology Treatment, [place] [address] [place] [address] [place], Chair 7 Hem Onc [address]en[address] [place] [address] 10/10/2023 1:45 PM EDT Imaging Radiology [address], [place] 132 [facility] [place] [address] 02/22/2024 11:50 AM EDT Office Visit [facility] [address] [place] [address] Mary Calderón, DO [address] [place] [address] Scheduled Procedures Name Priority Associated Diagnoses Date/Ti [...] this encounter Medical Devices Implanted Type Area Carpet Sewer Device Identifier Shelf Expiration Date Model / Serial / Lot Port 8fr 1lumen Infusion St Latexfree Power Implantable - [id number] Implanted:Qty: 1 on 07/07/2023 by Acosta Mathur MD at OR [facility] Left: Chest CR BARD : PERIPHERAL VASCULAR [id number] 05/04/2024 [id number] / / [id number] Stent Axios [id number] - [id number] Implanted:Qty: 1 on 08/11/2023 by Jayashree Alston MD at OR [facility] [employer] : ENDOSCOPY [id number] 06/19/2025 [id number] / / [id number] Stent Biliary Adult L30mm Dia1 - [id number] Implanted:Qty: 1 on 08/11/2023 by Jayashree Alston MD at OR [facility] COOK : SANDRA MTZ [id number] 06/21/2026 [id number] / / [id number] documented as of this encounter Advance Directives Documents on File Type Date Recorded Patient Sawmilling Operator Expl 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 Question Answer Comments Discussion of Advance Directives occurred with: Patient Care Teams Manager Mail Relationship Specialty Start Date End Date Lenora Harding MD [address] [place] [address] PCP - General Family Medicine 12/31/21 documented as of this encounter
--- OUTSIDE RECORDS SUMMARY | 2023-09-17 15:08 | External Medical Summary | Summary of Care ---
Author Name Unknown Organization [facility] Address [address] [place] [address] Phone [phone] Care Team Providers Care Check Inspector Name Role Phone Lenora Harding MD Primary Care Provid er Reason for Referral * Precert (Within 10 days (routine)) - Pending Review Specialty Diagnoses / Procedures Referred By Yury brito Referred To Contact Radiology Diagnoses Pancreatic cancer metastasized to liver (HCC) Procedures CT CHEST/ABDOMEN/PELVIS WITH IV CONTRAST WITH ORAL CONTRAST Ryne Acharya MD [address] [place] [address] Referral ID Status Reason Start Date Expiration Date V isits Requested Visits Authorized [id number] Pending Review 08/30/2023 999 999 Reason for Visit * Reason Comments Follow Up Encounter Details Date Type Department Care Team (Late st Contact Info) Description 08/30/2023 3:15 PM EDT Office Visit Hematology/Oncology [place] [facility] [place] [address] [place] [address] [phone] Ryne Acharya MD [address] [place] [id number] Pancreatic cancer metastasized to liver (HCC)* Allergies No known active allergiesdocumented as of [...] Oral Tablet (Lopressor)Indication s:Coronary artery disease involving eklutna heart, unspecified vessel or lesion type, unspecified [...] Next Due Pneumococcal Conjugate Vacci ne, 20-valent ([id number]) 06/03/2023(Deferred: Patient Refused) Seasonal Influenza, PF, 6 [...] Sign Reading Time Taken Comments Blood Pressure 118/81 08/30/2023 3:11 PM EDT Pulse 82 08/30/2023 3:11 PM EDT Temperature 36.2 C (97.1 F) 08/30/2023 3:11 PM ED T Respiratory Rate 18 08/30/2023 3:11 PM EDT Oxygen Saturation 95% 08/30/2023 3:11 PM EDT Inhaled Oxygen Concentration - - Weight 78.5 kg (173 lb 1.6 oz) 08/30/2023 3:11 P M EDT Height - - Body Mass Index 24.84 08/21/2023 10:48 AM EDT documented in this encounter Progress Notes * Ryne Acharya MD - 08/30/2023 3:26 PM EDT Hematology/Oncology Outpatient Clinic note [facility] [address] [facility] [place] [address] Name: Demar Ocampo Date: 08/06/2023 CHIEF COMPLAINT: Demar Ocampo is a 58 year old male here today for f/u visit today. HEMATOLOGY/ONCOLOGY DIAGNOSIS: Pancreatic head adenocarcinoma -liver metastasis. DATE OF DIAGNOSIS: 05/31/23 CURRENT TREATMENT: - Gemcitabine 1000 mg/m weekly x2 followed by 1 week off - Abraxane 125 mg/m weekly x2 followed by 1 week off - repeating chemotherapy every 21 days (.07/10/23 - ) DIAGNOSTIC WORKUP: For the last 6 months or so, he was diagnosed with new onset diabetes mellitus, on 3 different medications, subsequently had some abdominal pain and some nausea and so he was admitted at [facility]. Further workup as follows: Subsequently was transferred to [facility]. - total bilirubin level of 5.4, AST 179, ALT 251, alkaline phosphatase 488 (05/30/2023). Ultrasound of the gallbladder done on 05/29/2023 showed mild biliary ductal dilatation. No gallstones. MRI MRCP (05/29/2023 ) 1. Marked distension of the stomach, likely representing gastric outlet obstruction. 2. Infiltrative mass in the head of the pancreas which appears to obliterate the mid common bile duct and distal pancreatic duct with upstream dilatation. It also appears to obliterate the portosplenic confluence. It extends into the duodenum and appears to involve the gastric antrum. The findings are suspicious for pancreatic malignancy. A pancreas mass protocol CT is recommended for further evaluation. 3. T2 hyperintense lesions in the liver dome, not further characterized on this examination. CT scan of chest, abdomen pelvis on 06/01/2023). 1. Infiltrative pancreatic head mass with duodenal and SMV infiltration. 2. Suspicious appearing hepatic dome lesion, likely metastatic. 3. Subcentimeter peripancreatic anuel hepatic lymph nodes, some of which are reactive and others ofwhich are likely metastatic. 4. A suspicious appearing right paratracheal lymph node, indeterminate likely metastatic. OTHER: 1. Basilar ground-glass, likely inflammatory. 2. Trace effusions with atelectasis. 3. Mild ascites. 4. Bowel wall thickening of the ascending colon, nonspecific colitis. PET-CT scan done on 06/14/2023: 1. Metabolically active pancreatic head mass (2.8 x 32 cm)is consistent with known malignancy. 2. Scattered foci of increased metabolic activity in the liver consistent with metastases. ( right dome focus correlating with a 1.3 x 1.3 cm hypodense lesion with SUV 4.7.) 3. Suspected right frontoparietal brain metastasis. Further evaluation with contrast enhanced MRI of the brain using mass protocol is recommended. 4. Few tiny pulmonary nodules which are below resolution for PET imaging. 5. Metabolically active right maxillary dental paulette and reactive/odontogenic sinusitis. 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 See Results Detail and Interpretation sections below for additional information. 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 -chronic back pain following the CV stroke, he is on baclofen for the symptomatic treatment. -no smoking in the past. Family history: -dad of COVID-19, mom alive, no cancer diagnosis 1 brother 1 sister, no cancer diagnosis He has no children -3 maternal cousins with pancreatic cancer diagnosis. Interval History: Patient was admitted to [facility] 07/28/23 - 07/31/23 with acute cholecystitis. Presented with left sided abdominal pain, nausea and vomiting. Treated with IV antibiotics. Discharged on Augmentin x 10 days.Patient required 2 units PRBCs during admission. HISTORY OF PRESENT ILLNESS: He has come the clinic for the follow-up, he is in the wheelchair from the previous CV stroke, currently receiving gemcitabine Abraxane, received 2 cycles of chemotherapy, overall tolerated well, some mild nausea, mild vomiting, no fever, some pain in the right upper quadrant, he has left hemiparesis, no bleeding from the sites, no new GI symptoms. No bleeding from any sites. No new cardiac or pulmonary symptoms. No leg edema. Past Medical History: Diagnosis Date Allergic rhinitis CVA (cerebral vascular accident) (HCC) 09/2016 Dyslipidemia, goal LDL below 100 02/14 Essential hypertension with goal blood pressure less than 140/90 INFORMATION 03/2016 10 year cardiovascular risk of 9.7%, possible lower to 1.9%: Lifetime risk of 50%, possibly lower to 5%. MEDICATION USE AGREEMENT 12/14/2016 Past Surgical History: Procedure Laterality Date COLONOSCOPY, DIAGNOSTIC (RECTUM) 04/12/2017 hyperplastic polyp and prominent lymphoid tissue, repeat 5 yrs/COLONOSCOPY FLEXIBLE PROXIMAL DIAGNOSTIC performed by Jayashree Alston MD at ENDOSCOPY [facility] COLONOSCOPY, DIAGNOSTIC (RECTUM) 07/19/2022 non-bleeding internal hemorrhoids / no specimens collected / 5 year recall / COLONOSCOPY FLEXIBLE PROXIMAL DIAGNOSTIC performed by Jayashree Alston MD at ENDOSCOPY [facility] EGD, W/ENDOSCOPIC US N/A 05/31/2023 ESOPHAGOGASTRODUODENOSCOPY (EGD), FLEXIBLE, TRANSORAL, ENDOSCOPIC ULTRASOUND performed by Demar Aparicio MD [place] [facility] [place], W/ENDOSCOPIC US N/A 08/11/2023 ESOPHAGOGASTRODUODENOSCOPY (EGD), FLEXIBLE, TRANSORAL, ENDOSCOPIC ULTRASOUND performed by Jayashree Alston MD at OR [facility] ERCP, DIAGNOSTIC, SPECIMEN COLLECTION N/A 06/02/2023 ENDOSCOPIC RETROGRADE CHOLANGIOPANCREATOGRAPHY (ERCP) DIAGNOSTIC performed by Demar Aparicio MD [place] [facility] INSER TUNN ACC DEV;5 YRS/OLDER Left 07/07/2023 INSERT TUNNELED CENTRAL VENOUS ACCESS WITH SUBQ PORT performed by Acosta Mathur MD at [facility] REMOVE TONSILS & ADENOIDS, UNDER 13 age 11 THROMBOENDARECTOMY W/PATCH,NECK INCISION Right 11/03/2016 Right CEA for symptomatic disease. 11/03/16. Dr. Cyrus Perez. 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 employer: [employer] education: 12 service: no hobbies/interests: Hunting, outdoors transfusions: No Tattoos- no exercise: work diet: no jainism/lutheran: nondenominational marital status: 1998 children: 0 gc: 0 ggc: 0 pets: cat exposure to violence/threats/abuse: no things to improve: no Social Determinants of Health Financial Resource Strain: Not on file Food Insecurity: No Food Insecurity (09/16/2022) Hunger Vital Sign Worried About Running Out of Food in the Last Year: Never true Ran Out of Food in the Last Year: Never true Transportation Needs: Not on file Physical Activity: Not on file Stress: Not on file Social Connections: Not on file Intimate Partner Violence: Not on file Housing Stability: Not on file Review of patient's allergies indicates: No Known Allergies Current Outpatient Medications Medication Sig Dispense Refill THIAMINE (VITAMIN B-1) 100 MG Tablet Take 1 Tablet by mouth in the morning. aspirin enteric coated (ECOTRIN LOW STRENGTH) 81 MG TBEC Take 1 Tab by mouth daily. 100 Tab 3 acetaminophen (TYLENOL) 500 MG Tablet Take by mouth as needed. BOTOX 100 units injection every 12 weeks. (Patient not taking: Reported on 08/02/2023) diphenhydrAMINE HCl 25 MG Oral Tablet Take [...] mouth in the morning. 90 Tablet 3 OneTouch Verio In Vitro Strip (Glucose Blood) USE UP TO FOUR TIMES DAILY FOR BLOOD GLUCOSE TESTING 100 Strip 11 metFORMIN HCl ER 500 MG Oral Tablet Extended Release 24 Hour (Glucophage XR) Take 1 Tablet by mouthin the morning and 1 Tablet before bedtime. 180 Tablet 3 Baclofen 10 MG Oral Tablet (Lioresal) TAKE 1 AND 1/2 TABLETS BY MOUTH FOUR TIMES A DAY 540 Tablet 1 FLUoxetine HCl 40 MG Oral Capsule (PROzac) Take 1 Capsule by mouth in the morning. Ondansetron HCl 8 MG Oral Tablet (Zofran) Take 1 Tablet by mouth every 8 hours as needed for Nausea. (Patient not taking: Reported on 07/07/2023) 30 Tablet 2 Prochlorperazine Maleate 10 MG Oral Tablet (Compazine) Take 1 Tablet by mouth every 6 hours as needed for Nausea. (Patient not taking: Reported on 07/07/2023) 30 Tablet 2 Lidocaine-Prilocaine 2.5-2.5 % External Cream (Emla) APPLY TO SKIN OVER MEDIPORT & COVER 1HR PRIOR TO ACCESSING. (Patient not taking: Reported on 07/07/2023) 30 g 1 oxyCODONE HCl 5 MG Oral Tablet (Oxy IR) Take 1 Tablet by mouth every 6 hours as needed for Pain, Severe. 30 Tablet 0 Lantus SoloStar 100 UNIT/ML Subcutaneous Solution Pen-injector Inject 8 Units under the skin in themorning. 15 mL 0 BD Pen Needle Stefanie 2nd Gen 32G X 4 MM (Insulin Pen Needle) Use to inject insulin daily as directed.100 Each 0 Metoprolol Tartrate 50 MG Oral Tablet (Lopressor) Take 1 Tablet by mouth in the morning. 90 Tablet 1 Pantoprazole Sodium 40 MG Oral Tablet Delayed Release (Protonix) Take 1 Tablet by mouth in the morning and 1 Tablet before bedtime. 30 minutes before the first meal of the day. Do not crush, split orchew the tablet. 60 Tablet 5 No current facility-administered medications for this visit. REVIEW OF SYSTEMS: See HPI - otherwise negative OBJECTIVE: BP 118/81 (BP Site: Left Arm, BP Position: Sitting, BP Cuff Size: Regular) | Pulse 82 | Temp 36.2 C (97.1 F) (Tympanic) | Resp 18 | Wt 78.5 kg (173 lb 1.6 oz) | SpO2 95% | BMI 24.84 kg/m | BSA 1.97 m PHYSICAL EXAM: ECOG: Performance Status 3 = 40-50% Bedtime > 50% General Appearance: No acute distress HEENT: Normal - No oral or pharyngeal masses, ulceration or thrush noted Lymph Nodes: Normal - No palpable lymph nodes in the neck or supraclavicular areas Lungs/Thorax: Normal - Clear to auscultation Heart: Normal - Regular rate and rhythm, normal S1, S2, no appreciable murmurs Pulses/Extremities: Normal - 2+ throughout and symmetrical, no edema Abdomen: Normal - Soft, nontender, bowel sounds present, no appreciable hepatosplenomegaly, no palpable masses Neurologic: alert and oriented x 4, left hemiparesis, in wheelchair today LABS: Blood workup done on 08/25/2023: -WBC 4009 H&H of 10.5/33, Platelet count of 343304 -BUN/Creat: 12/0.9 -Calcium 9.4 -AST 52, ALT 55, alkaline phosphatase 187, bilirubin level 0.6 -CA 19-9 level -->286 . IMPRESSION/PLAN: Metastatic pancreatic adenocarcinoma Encounter for chemotherapy Patient was admitted to [facility] 07/28/23 - 07/31/23 with acute cholecystitis. Discharged on Augmentin x 10 days. Patient required 2 units PRBCs during admission. S/P EUS guided GB drainage and Axios stent placement 08/11/23. Patient feeling clinically improved today. Denies abdominal pain or nausea. Lab results reviewed: Bilirubin level is normal. Slightly elevated AST, ALT alkaline phosphatase which is expected. Hemoglobin stable around 10 g/dL. So far he received 2 cycles of chemotherapy gemcitabine Abraxane ( weekly x2 followed by 1 week off). He is due for next cycle starting next week. He will blood workup before that. Once again talked to them about overall treatment plan which would be palliative not curative. I am planning for follow-up CT scan of chest, abdomen pelvis in early October of 2023 ( ordered) Dr. Ryne Acharya Hem/Onc (This note was completed using the dictation program Fluency Direct. As such, there may be misspellings word substitutions, or other variations that should not change the essence of the clinical content of this encounter note. If there is need for further clarification, please direct questions to the provider listed above.) documented in this encounter Nursing Notes * Oriana Jackson MED ASSIST - 08/30/2023 3:13 PM EDT Patient identifed by name and birthdate Do you have any concerns about pain management for today's visit? Yes. Patient instructed to discuss pain concerns with provider during the visit today Living Will or Advance Directive for Health Care as noted on the problem list. [facility] is a way you can talk to your provider on line through e-mail. Would you like to sign up? I can activate it for you? ALREADY ACTIVE Filed Vitals: 08/30/23 1511 BP: 118/81 Pulse: 82 Resp: 18 Temp: 36.2 C (97.1 F) TempSrc: Tympanic SpO2: 95% Weight: 78.5 kg (173 lb 1.6 oz) Patient was instructed to not get up on the exam table/exam chair until directed and assisted by their provider; patient is to remain seated in the chair/ wheelchair/ exam table/ exam chair for fall prevention and safety reasons. Patient is aware to have assistance to step down off exam table/exam chair with personnel. Patient voiced full comprehension of instructions. documented in this encounter Plan of Treatment Upcoming Encounters Date Type Department Care Team (Late st Contact Info) Description 09/08/2023 8:30 AM EDT Laboratory Laboratory [facility] [place] [address] [phone] [place] Lab [facility] [address] [place] [address] 09/08/2023 9:30 AM EDT Hem/Onc Treatment Hematology/Oncology Treatment, [place] [address] [place] [phone] [place], Chair 5 Hem Onc [facility] [address] [place] [address] 09/13/2023 1:00 PM EDT Office Visit Gastroenterology, [facility] [address] [address] Kacey Cárdenas CRNP [address] [address] 09/15/2023 10:30 AM EDT Laboratory Laboratory [place] [facility] [place] [address] [phone] [place] Lab [facility] [address] [address] 09/15/2023 11:00 AM EDT Office Visit Hematology/Oncology [facility] [place], [place] [address] [place] [phone] Hannah Guillory CRNP [address] [facility] [place] [place] [address] 09/15/2023 11:30 AM EDT Hem/Onc Treatment Hematology/Oncology Treatment, [place] [address] [place] [phone] [place], Chair 7 Hem Onc [place] [address] [place] [address] 10/10/2023 1:45 PM EDT Imaging Radiology [address], [place] [address] [facility] [place] [address] 02/22/2024 11:50 AM EDT Office Visit [facility] [address] [place] [phone] Mary Calderón, DO [address] [place] [address] Scheduled Orders Name Type Priority Associated Diagnoses Orde r Schedule CT CHEST/ABDOMEN/PELVI S WITH IV CONTRAST WITH ORAL CONTRAST Medical Imaging Routine Pancreatic cancer metastasized to liver (HCC) Expected: 08/30/2023, Expires: 08/29/2024 Scheduled Procedures Name Priority Associated Diagnoses Date/Ti [...] this encounter Medical Devices Implanted Type Area Cylinder Machine Operator Pulp Drier Device Identifier Shelf Expiration Date Model / Serial / Lot Port 8fr 1lumen Infusion St Latexfree Power Implantable - [id number] Implanted:Qty: 1 on 07/07/2023 by Acosta Mathur MD at OR [facility] Left: Chest CR BARD : PERIPHERAL VASCULAR [id number] 05/04/2024 [id number] / / [id number] Stent Axios [id number] - [id number] Implanted:Qty: 1 on 08/11/2023 by Jayashree Alston MD at OR [facility] [employer] : ENDOSCOPY [id number] 06/19/2025 [id number] / / [id number] Stent Biliary Adult L30mm Dia1 - [id number] Implanted:Qty: 1 on 08/11/2023 by Jayashree Alston MD at OR [facility] BIBI : SANDRA MTZ [id number] 06/21/2026 [id number] / / [id number] documented as of this encounter Visit Diagnoses Diagnosis Pancreatic cancer metastasized to liver (HCC)- Primary Malignant neoplasm of pancreas, part unspecified documented in this encounter Advance Directives Documents on File Type Date Recorded 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 Question Answer Comments Discussion of Advance Directives occurred with: Patient Care Teams Check Inspector Relationship Specialty Start Date End Date Lenora Harding MD [address] [address] PCP - General Family Medicine 12/31/21 documented as of this encounter"
--- OUTSIDE RECORDS SUMMARY | 2023-09-17 15:08 | External Medical Summary | Summary of Care ---
Author Name Unknown Organization [facility] Address [address] [place] [address] Phone [phone] Care Team Providers Care Amortization Clerk Name Role Phone Lenora Harding MD Primary Care Provid er Encounter Details Date Type Department Care Team (Late st Contact Info) Description 09/07/2023 Orders Only Hematology/Oncology, [address] [phone] Silvano Franklin MD [address] [place] [address] Allergies No known active allergiesdocumented as of this encounter (statuses as of 09/07/2023) Medications Medication Sig Dispensed Refills Start Date [...] A1c goal of less than 7.0% ([facility]) USE UP TO FOUR TIMES DAILY FOR BLOOD GLUCOSE TESTING 100 Strip 11 03/03/2023 Active metFORMIN HCl ER 500 MG Oral Tablet Extended Release 24 Hour (Glucophage XR)Indications:Type 2 diabetes mellitus with hemoglobin A1c goal of less than 7.0% ([facility]) Take 1 Tablet by mouth [...] Oral Tablet (Lopressor)Indication s:Coronary artery disease involving ewiiaapaayp heart, unspecified vessel or lesion type, unspecified [...] as of this encounter (statuses as of 09/07/2023) Active Problems Problem Noted Date Diagnosed Date Encounter for antineoplastic chemotherapy 2023 FHx: pancreatic cancer 06/16/2023 Pancreatic cancer metastasized to liver 06/02/20 23 Gastric outlet obstruction 06/01/2023 Type 2 diabetes [...] as of this encounter (statuses as of 09/07/2023) Resolved Problems Problem Noted Date Diagnosed Date [...] as of this encounter (statuses as of 09/07/2023) Immunizations Name Administration Dates Next Due Pneumococcal Conjugate Vacci ne, 20-valent ([id number]) 06/03/2023(Deferred: Patient Refused) Seasonal Influenza, PF, 6 [...] Description 09/08/2023 8:30 AM EDT Laboratory Laboratory [place] Reynoso [address] [phone] [place] [facility] [place] [address] [address] 09/08/2023 9:30 AM EDT Hem/Onc Treatment Hematology/Oncology Treatment, [place] [address] [facility] [phone] [place], Chair 5 Hem Onc [place] [address] [place] [address] 09/13/2023 1:00 PM EDT Office Visit Gastroenterology, [facility] [address] [facility] [place] [address] Kacey Cárdenas CRNP 132 [facility] [place] [address] 09/15/2023 10:30 AM EDT Laboratory Laboratory [facility] [address] [place] [phone] [place], Lab [facility] [address] [facility] [place] [address] 09/15/2023 11:00 AM EDT Office Visit Hematology/Oncology [facility] [address] [facility] [place] [phone] Hannah Guillory CRNP [address] [facility] [place] [address] 09/15/2023 11:30 AM EDT Hem/Onc Treatment Hematology/Oncology Treatment, [place] [address] [facility] [phone] [place], Chair 7 Hem Onc [facility] [place] [place] [address] [facility] [place] [address] 10/10/2023 1:45 PM EDT Imaging Radiology [facility] [address] [facility] [place] [address] 02/22/2024 11:50 AM EDT Office Visit [address] [phone] Mary Calderón, DO [address] [place] [address] Scheduled Procedures Name Priority Associated Diagnoses Date/Ti [...] this encounter Medical Devices Implanted Type Area Hotel Supplies Salesperson Device Identifier Shelf Expiration Date Model / Serial / Lot Port 8fr 1lumen Infusion St Latexfree Power Implantable - [id number] Implanted:Qty: 1 on 07/07/2023 by Acosta Mathur MD at OR [facility] Left: Chest CR BARD : PERIPHERAL VASCULAR [id number] 05/04/2024 [id number] / / [id number] Stent Axios [id number] - [id number] Implanted:Qty: 1 on 08/11/2023 by Jayashree Alston MD at OR [facility] [employer] : ENDOSCOPY [id number] 06/19/2025 [id number] / / [id number] Stent Biliary Adult L30mm Dia1 - [id number] Implanted:Qty: 1 on 08/11/2023 by Jayashree Alston MD at OR [facility] BIBI : SANDRA MTZ [id number] 06/21/2026 [id number] / / [id number] documented as of this encounter Advance Directives Documents on File Type Date Recorded 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 Question Answer Comments Discussion of Advance Directives occurred with: Patient Care Teams Amortization Clerk Relationship Specialty Start Date End Date Lenora Harding MD [address] [phone] PCP - General Family Medicine 12/31/21 documented as of this encounter
--- OUTSIDE RECORDS SUMMARY | 2023-09-17 15:08 | External Medical Summary | Summary of Care ---
Author Name Unknown Organization [facility] Address [address] [place] [address] Phone [phone] Care Team Providers Care Finish Remover Name Role Phone Lenora Harding MD Primary Care Provid er Encounter Details Date Type Department Care Team (Late st Contact Info) Description 09/10/2023 Orders Only Hematology/Oncology, [address] [phone] Silvano Franklin MD [address] [place] [address] Allergies No known active allergiesdocumented as of this encounter (statuses as of 09/10/2023) Medications Medication Sig Dispensed Refills Start Date [...] A1c goal of less than 7.0% ([facility]) Take 1 Tablet by mouth in [...] Oral Tablet (Lopressor)Indication s:Coronary artery disease involving e[place] heart, unspecified vessel or lesion type, unspecified [...] as of this encounter (statuses as of 09/10/2023) Active Problems Problem Noted Date Diagnosed Date [...] as of this encounter (statuses as of 09/10/2023) Resolved Problems Problem Noted Date Diagnosed Date [...] as of this encounter (statuses as of 09/10/2023) Immunizations Name Administration Dates Next Due Pneumococcal Conjugate Vacci ne, 20-valent ([id number]) 06/03/2023(Deferred: Patient Refused) Seasonal Influenza, PF, 6 [...] 09/13/2023 1:00 PM EDT Office Visit Gastroenterology, [facility] [address] [address] Kacey Cárdenas CRNP [address] [address] 09/15/2023 10:30 AM EDT Laboratory Laboratory [facility] [place] [address] [place] [address] [place], Lab [address] [facility] [place] [address] 09/15/2023 11:00 AM EDT Office Visit Hematology/Oncology [facility] [place] [address] [place] [phone] Hannah Guillory CRNP [address] [place] [address] 09/15/2023 11:30 AM EDT Hem/Onc Treatment Hematology/Oncology Treatment, [place] [address] [place] [address] [place], Chair 7 Hem Onc [address] [place] [address] 10/10/2023 1:45 PM EDT Imaging Radiology [address], [place] 132 [facility] [place] [address] 02/22/2024 11:50 AM EDT Office Visit [facility] [address] [place] [address] Mary Calderón, DO [address] [place] [address] Scheduled Procedures Name Priority Associated Diagnoses Date/Ti [...] this encounter Medical Devices Implanted Type Area Paper Sorter And Counter Device Identifier Shelf Expiration Date Model / Serial / Lot Port 8fr 1lumen Infusion St Latexfree Power Implantable - [id number] Implanted:Qty: 1 on 07/07/2023 by Acosta Mathur MD at OR [facility] Left: Chest CR BARD : PERIPHERAL VASCULAR [id number] 05/04/2024 [id number] / / [id number] Stent Axios [id number] - [id number] Implanted:Qty: 1 on 08/11/2023 by Jayashree Alston MD at OR [facility] [employer] ENDOSCOPY [id number] 06/19/2025 [id number] / / [id number] Stent Biliary Adult L30mm Dia1 - [id number] Implanted:Qty: 1 on 08/11/2023 by Jayashree Alston MD at OR [facility] COOK : SANDRA MTZ [id number] 06/21/2026 [id number] / / [id number] documented as of this encounter Advance Directives Documents on File Type Date Recorded Patient Teachers' Aide Expl 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 Question Answer Comments Discussion of Advance Directives occurred with: Patient Care Teams Finish Remover Relationship Specialty Start Date End Date Lenora Harding MD [address] [place] [address] PCP - General Family Medicine 12/31/21 documented as of this encounter
--- OUTSIDE RECORDS SUMMARY | 2023-09-17 15:08 | External Medical Summary | Summary of Care ---
Author Name Unknown Organization [facility] Address [address] [place] [address] Phone [phone] Care Team Providers Care Copy Chaser Name Role Phone Lenora Harding MD Primary Care Provid er Reason for Visit * Reason Onset Date Comments Palliative Care Follow-up 08/30/2023 Encounter Details Date Type Department Care Team (Late st Contact Info) Description 08/30/2023 9:00 AM EDT Scheduled Telephone Palliative Medicine, [address] 5th Floor [place], [place] [phone] [place], Nurse Palliative Medicine [address] [phone] Allergies No known active allergiesdocumented as of [...] Oral Tablet (Lopressor)Indication s:Coronary artery disease involving chuloonawick heart, unspecified vessel or lesion type, unspecified [...] Next Due Pneumococcal Conjugate Vacci ne, 20-valent ([id number]) 06/03/2023(Deferred: Patient Refused) Seasonal Influenza, PF, 6 [...] encounter Miscellaneous Notes * Telephone Encounter - Jessika Adkins LPN - 08/30/2023 10:59 AM EDT Palliative f/u phone call Last seen 08/02 ASSESSMENT/PLAN: Demar Ocampo is a/an 58 year old male referred for consultation to Palliative Medicine with the primary diagnosis of: Pancreatic adenocarcinoma, stage IV Mets to liver Recent cholecystitis Hx of stroke with L sided hemiparesis Goals of care - wants to continue chemo DNR if admitted Recommendations: At this time, no symptoms to manage, and he does want to continue chemotherapy POLST completed, will fax to [facility] as well Will plan for nursing to call him in a month and see how he is Reviewed how if he ever wants to stop, we could get hospice on board. They are aware. Phone call to patient Spoke with patient and Has a f/u with Dr. Acharya this afternoon Overall has been tolerating chemo mostly and has not missed any treatments At this point he still wants to continue with chemo Still no issues with pain He does not feel he needs to follow up with us at this time They are aware they can call/MyG us or Dr. Acharya's office if at any point he would like another appointment with us documented in this encounter Plan of Treatment Upcoming Encounters Date Type Department Care Team (Late st Contact Info) Description 08/30/2023 3:15 PM EDT Office Visit Hematology/Oncology [facility] [place] [address] [place] [phone] Ryne Acharya MD 200 [facility] [place] [address] 09/08/2023 8:30 AM EDT Laboratory Laboratory [facility] [place] [address] [place] [phone] [place], Lab [facility] [address] [place] [address] [place] [address] 09/08/2023 9:30 AM EDT Hem/Onc Treatment Hematology/Oncology Treatment, [place] [address] [place] [phone] [place], Chair 5 Hem Onc [facility] 200 [facility] [place] [address] 09/13/2023 1:00 PM EDT Office Visit Gastroenterology, [facility] [address] [place] [address] Kacey Cárdenas CRNP [address] [place] [address] 09/15/2023 10:30 AM EDT Laboratory Laboratory [facility] [place] 200 [facility] [place] [phone] [place], Lab [facility] 200 [facility] [place] [address] 09/15/2023 11:00 AM EDT Office Visit Hematology/Oncology [facility] [place] 200 [facility] [place] [phone] Hannah Guillory CRNP [address] [place] [phone] 09/15/2023 11:30 AM EDT Hem/Onc Treatment Hematology/Oncology Treatment, [place] 200 [facility], [place] [phone] [place], Chair 7 Hem [address] [place] [address] 02/22/2024 11:50 AM EDT Office Visit [facility] [address] [place] [phone] Mary Calderón DO [address] [place] [address] Scheduled Procedures Name Priority Associated Diagnoses Date/Ti [...] this encounter Medical Devices Implanted Type Area Adult Education Professional Device Identifier Shelf Expiration Date Model / Serial / Lot Port 8fr 1lumen Infusion St Latexfree Power Implantable - [id number] Implanted:Qty: 1 on 07/07/2023 by Acosta Mathur MD at OR [facility] Left: Chest CR BARD : PERIPHERAL VASCULAR [id number] 05/04/2024 [id number] / / [id number] Stent Axios [id number] - [id number] Implanted:Qty: 1 on 08/11/2023 by Jayashree Alston MD at OR [facility] [employer] ENDOSCOPY [id number] 06/19/2025 [id number] / / [id number] Stent Biliary Adult L30mm Dia1 - [id number] Implanted:Qty: 1 on 08/11/2023 by Jayashree Alston MD at OR [facility] BIBI : SANDRA MTZ [id number] 06/21/2026 [id number] / / [id number] documented as of this encounter Advance Directives Documents on File Type Date Recorded Patient Group Marketing Vp Michelle mendoza POL 08/03/2023 10:10 AM POL (Morenita dos santos DNR) Latest Code Status on File Code Status Date Activated Date Inactivated Comments Full Code 05/30/2023 10:13 PM 06/03/2023 2:34 PM Th is order reflects the patients wishes and were consensually agreed upon. Question Answer Comments Discussion of Advance Directives occurred with: Patient Care Teams Copy Chaser Relationship Specialty Start Date End Date Lenora Harding MD [address] [phone] PCP - General Family Medicine 12/31/21 documented as of this encounter
--- OUTSIDE RECORDS SUMMARY | 2023-09-17 15:08 | External Medical Summary ---
Author Name Unknown Address Unknown Organization K09[facility] [address] [place] [address] Laboratory Report Ordering Provider Test Date Status GINNY PATEL 09/15/2023 10:30:46 Final Observation Date Value Abnormality Reference (Units ) Status BUN 09/15/2023 10:30:46 13 6-20 (mg/dL) Final Creatinine 09/15/2023 10:30:46 1.2 0.6-1.2 (mg/dL) Final Glomerular filtration rate/1.73 sq M.predicted [Volume Rate/Area] in Serum, Plasma or Blood by Creatinine-based formula (CKD-EPI) 09/15/2023 10:30:46 71 >=60 (mL/min) Final eGFR is calculated based on the CKD-EPI 2020 equation Sodium 09/15/2023 10:30:46 137 135-146 (m mol/L) Final Potassium 09/15/2023 10:30:46 3.7 3.5-5.1 (m mol/L) Final Cl 09/15/2023 10:30:46 100 98-107 (mm ol/L) Final CO2 09/15/2023 10:30:46 26 22-32 (mmo l/L) Final Anion gap 09/15/2023 10:30:46 11 7-15 (mmol /L) Final Glucose 09/15/2023 10:30:46 147 Above high normal 70 -120 (mg/dL) Final Albumin 09/15/2023 10:30:46 3.3 Below low normal 3.8 -5.0 (g/dL) Final AST (Aspartate aminotransferase) 09/15/2023 10:30:46 86 Above high normal 10-50 (U/L) Final Alk Phos 09/15/2023 10:30:46 228 Above high normal 35 -130 (U/L) Final Bilirubin, Total 09/15/2023 10:30:46 1.0 <=1 .2 (mg/dL) Final Calcium 09/15/2023 10:30:46 9.0 8.4-10.2 ( mg/dL) Final Protein 09/15/2023 10:30:46 7.0 6.0-8.3 (g /dL) Final ALT (Alanine aminotransferase) 09/15/2023 10:30:46 73 Above high normal 10-50 (U/L) Final Performing Location [facility] [place] [address]
--- OUTSIDE RECORDS SUMMARY | 2023-09-17 15:08 | External Medical Summary | Summary of Care ---
Author Name Unknown Organization [facility] Address [address] [place] [address] Phone [phone] Care Team Providers Care Corporate Associate Attorney Name Role Phone Lenora Harding MD Primary Care Provid er Reason for Visit * Reason Onset Date Comments Order Request 09/08/2023 potassium Encounter Details Date Type Department Care Team (Late st Contact Info) Description 09/08/2023 Telephone Hematology/Oncology Treatment, [place] [address] [place] [address] Ryne Acharya MD [address] [place] [address] Order Request (potassium) Allergies No known active [...] goal of less than 7.0% ([facility]) Take 1 Tablet by mouth in the [...] Oral Tablet (Lopressor)Indication s:Coronary artery disease involving ambler heart, unspecified vessel or lesion type, unspecified [...] Next Due Pneumococcal Conjugate Vacci ne, 20-valent ([id number]) 06/03/2023(Deferred: Patient Refused) Seasonal Influenza, PF, 6 [...] accepted: Orders * Telephone Encounter - Ruby Aivla RN - 09/08/2023 11:[address] Fay, patient to receive 20mEq KCl IV with treatment today. Dr Fay: please place alteration. Thanks! documented in this encounter Plan of Treatment Upcoming Encounters Date Type Department Care Team (Late st Contact Info) Description 09/13/2023 1:00 PM EDT Office Visit [facility] [place] [address] Kacey Cárdenas CRNP 132 [facility] [place] [address] 09/15/2023 10:30 AM EDT Laboratory Laboratory [facility] [place] 200 [facility] [place] [phone] [place], Lab [facility] 200 [facility] [place] [address] 09/15/2023 11:00 AM EDT Office Visit Hematology/Oncology [facility] [place] 200 [facility] [place] [phone] Hannah Guillory CRNP 400 [facility] [place] [address] 09/15/2023 11:30 AM EDT Hem/Onc Treatment Hematology/Oncology Treatment, [place] [address] [facility] [address] [place] [phone] [place], Chair 7 Hem Onc [facility] 200 [facility] [place] [address] 10/10/2023 1:45 PM EDT Imaging Radiology [facility]st [facility] 132 [facility] [place] [address] 02/22/2024 11:50 AM EDT Office Visit [facility] [address] [place] [address] Mary Calderón, [address] [place] [address] Scheduled Procedures Name Priority Associated [...] this encounter Medical Devices Implanted Type Area Entry Specialists Device Identifier Shelf Expiration Date Model / Serial / Lot Port 8fr 1lumen Infusion St Latexfree Power Implantable - [id number] Implanted:Qty: 1 on 07/07/2023 by Acosta Mathur MD at OR [facility] Left: Chest CR BARD : PERIPHERAL VASCULAR [id number] 05/04/2024 [id number] / / [id number] Stent Axios [id number] - [id number] Implanted:Qty: 1 on 08/11/2023 by Jayashree Alston MD at OR [facility] [employer] : ENDOSCOPY [id number] 06/19/2025 [id number] / / [id number] Stent Biliary Adult L30mm Dia1 - [id number] Implanted:Qty: 1 on 08/11/2023 by Jayashree Alston MD at OR [facility] COOK : SANDRA MTZ [id number] 06/21/2026 [id number] / / [id number] documented as of this encounter Visit Diagnoses Diagnosis Pancreatic cancer metastasized to liver (HCC)- Primary Malignant neoplasm of pancreas, part unspecified documented in this encounter Advance Directives Documents on File Type Date Recorded Patient Correspondence Transcriber Expl 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 Question Answer Comments Discussion of Advance Directives occurred with: Patient Care Teams Corporate Associate Attorney Relationship Specialty Start Date End Date Lenora Harding MD [address] [place] [facility] [place] [address] PCP - General Family Medicine 12/31/21 documented as of this encounter
--- OUTSIDE RECORDS SUMMARY | 2023-09-17 15:08 | External Medical Summary | Summary of Care ---
Author Name Unknown Organization [facility] Address [address] [place] [address] Phone [phone] Care Team Providers Care Title I Director Name Role Phone Lenora Harding MD Primary Care Provid er Reason for Visit * Reason Comments Outpatient Testing Encounter Details Date Type Department Care Team (Late st Contact Info) Description 09/08/2023 8:30 AM EDT Laboratory Laboratory [facility] [address] [place] [phone] [place], Lab [address] [place] [address] Pancreatic cancer metastasized to liver (HCC) Allergies [...] goal of less than 7.0% ([facility]) USE UP TO FOUR TIMES DAILY FOR BLOOD GLUCOSE TESTING 100 [address] 11 03/03/2023 Active metFORMIN HCl ER 500 MG Oral Tablet Extended Release 24 Hour (Glucophage XR)Indications:Type 2 diabetes mellitus with hemoglobin A1c goal of less than 7.0% ([facility]) Take 1 Tablet by mouth in [...] Oral Tablet (Lopressor)Indication s:Coronary artery disease involving [place] heart, unspecified vessel or lesion type, unspecified [...] Next Due Pneumococcal Conjugate Vacci ne, 20-valent ([id number]) 06/03/2023(Deferred: Patient Refused) Seasonal Influenza, PF, 6 [...] Team (Late st Contact Info) Description 09/08/2023 9:30 AM EDT Hem/Onc Treatment Hematology/Oncology Treatment, [place] [address] [place] [phone] [place], Chair 5 Hem Onc [address] [address] [place] [address] Arrived 09/13/2023 1:00 PM EDT Office Visit Gastroenterology, [facility] 132 [facility] [place] [address] Kacey Cárdenas CRNP 132 [facility] [place] [address] 09/15/2023 10:30 AM EDT Laboratory Laboratory [facility] 200 [facility] [place] [phone] [place], Lab [facility] 200 [facility] [place] [address] 09/15/2023 11:00 AM EDT Office Visit Hematology/Oncology [facility] 200 [facility] [place] [address] Hannah Guillory CRNP [address] [facility] [place] [address] 09/15/2023 11:30 AM EDT Hem/Onc Treatment Hematology/Oncology Treatment, [place] [address] [facility] [place] [phone] [place], Chair 7 Hem Onc [facility] 200 [facility] [place] [address] 10/10/2023 1:45 PM EDT Imaging Radiology [facility] 1st [facility] 132 [facility] [place] [address] 02/22/2024 11:50 AM EDT Office Visit [facility] [address] [place] [phone] Mary Calderón DO [address] [facility] [place] [address] Pending Results Name Type Priority Associated Diagnoses Date /Time CBC WITH WBC DIFFERENTIAL Lab STAT Pancreatic cancer metastasized to liver (HCC) 09/08/2023 8:45 AM EDT COMPREHENSIVE METABOLIC PANEL Lab STAT Pancreatic cancer metastasized to liver (HCC) 09/08/2023 8:45 AM EDT CA 19-9 Lab STAT Pancreatic cancer metastasized to liver (HCC) 09/08/2023 8:45 AM EDT CBC Lab STAT Pancreatic cancer metastasized to liver (HCC) 09/08/2023 8:45 AM EDT DIFFERENTIAL, AUTOMATED Lab STAT Pancreatic cancer metastasized to liver (HCC) 09/08/2023 8:45 AM EDT DIFFERENTIAL, TECHNOLOGIST REVIEW Lab Routine Pancreatic cancer metastasized to liver (HCC) 09/08/2023 8:45 AM EDT Scheduled Procedures Name Priority Associated [...] this encounter Medical Devices Implanted Type Area Trauma Doctor Device Identifier Shelf Expiration Date Model / Serial / Lot Port 8fr 1lumen Infusion St Latexfree Power Implantable - [id number] Implanted:Qty: 1 on 07/07/2023 by Acosta Mathur MD at OR [facility] Left: Chest CR BARD : PERIPHERAL VASCULAR [id number] 05/04/2024 [id number] / / [id number] Stent Axios [id number] - [id number] Implanted:Qty: 1 on 08/11/2023 by Jayashree Alston MD at OR [facility] [employer] ENDOSCOPY [id number] 06/19/2025 [id number] / / [id number] Stent Biliary Adult L30mm Dia1 - [id number] Implanted:Qty: 1 on 08/11/2023 by Jayashree Alston MD at OR [facility] COOK : SANDRA MZT [id number] 06/21/2026 [id number] / / [id number] documented as of this encounter Visit Diagnoses Diagnosis Pancreatic cancer metastasized to liver (HCC) Malignant neoplasm of pancreas, part unspecified documented in this encounter Advance Directives Documents on File Type Date Recorded Patient Marine Equipment Design Engineer Expl 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 Question Answer Comments Discussion of Advance Directives occurred with: Patient Care Teams Title I Director Relationship Specialty Start Date End Date Lenora Harding MD [address] [facility] [place] [address] PCP - General Family Medicine 12/31/21 documented as of this encounter
--- OUTSIDE RECORDS SUMMARY | 2023-09-17 15:08 | External Medical Summary | Summary of Care ---
Author Name Unknown Organization [facility] Address [address] [place] [address] Phone [phone] Care Team Providers Care Claim Trainee Name Role Phone Lenora Harding MD Primary Care Provid er Reason for Visit * Episode Based Medications (Routine) - Authorized Specialty Diagnoses / Procedures Referred By Contjoseline t Referred To Contact Diagnoses Encounter for antineoplastic chemotherapy Pancreatic cancer metastasized to liver (HCC) Procedures [place] PACLITAXEL PROTEIN BOUND [place] IN GEMCITABINE HCL NOS 200MG Ryne Acharya MD [address] [place] [address] Anc Hem/Onc [address] [address] Referral ID Status Reason Start Date Expiration Date V isits Requested Visits Authorized [id number] Authorized 06/27/2023 12/26/2023 [id number] Encounter Details Date Type Department Care Team (Latest Contact Info) Description 09/08/2023 9:30 AM EDT Hem/Onc Treatment Hematology/Oncolog y Treatment, [address] [phone] [place], Chair 5 Hem Onc [address] [place] [address] Encounter for antineoplastic chemotherapy*; Pancreatic cancer metastasized [...] Active Ondansetron HCl 8 MG Oral Tablet (Zofran)Indications: Pancreatic cancer metastasized to liver (HCC) Take 1 Tablet by mouth every 8 hours as needed for Nausea. 30 Tablet 2 06/29/2023 Active Additional Information Patient not taking.Reported on 07/07/2023 Prochlorperazine Maleate 10 MG Oral Tablet (Compazine)Indicatio ns:Pancreatic cancer metastasized to liver (HCC) Take 1 Tablet by mouth every 6 hours as needed for Nausea. 30 Tablet 2 06/29/2023 Active Additional Information Patient not taking.Reported on 07/07/2023 Lidocaine-Prilocaine 2.5-2.5 % External Cream (Emla)Indications:Pa ncreatic cancer metastasized to liver (HCC) APPLY TO SKIN OVER MEDIPORT & COVER 1HR PRIOR TO ACCESSING. 30 g 1 06/29/2023 Active Additional Information Patient not taking.Reported on 07/07/2023 oxyCODONE HCl 5 MG Oral Tablet (Oxy IR)Indications:Pancr eatic cancer metastasized to liver (HCC) Take 1 Tablet by mouth every 6 hours as needed for Pain, Severe. 30 Tablet 0 07/14/2023 Active BD Pen Needle Stefanie 2nd Gen 32G X 4 MM (Insulin Pen Needle) Use to inject insulin daily as directed. 100 Each 0 07/25/2023 Active Metoprolol Tartrate 50 MG Oral Tablet (Lopressor)Indicatio ns:Coronary artery disease involving nome heart, unspecified vessel or lesion type, unspecified [...] the tablet. 60 Tablet 5 08/03/2023 Active BOTOX 100 units injection every 12 weeks. 0 02/08/2019 09/08/19 24 Discontinu ed(Patient preference /discontin uation) Lantus SoloStar 100 UNIT/ML Subcutaneous Solution Pen-injectorIndicati ons:Pancreatic cancer metastasized to liver (HCC),Type 2 diabetes mellitus with hyperglycemia, without long-term current use of insulin (HCC) Inject 8 Units under the skin in the morning. 15 mL 0 07/25/2023 09/08/19 Discontinu ed(Refill) documented as of this encounter (statuses as [...] Next Due Pneumococcal Conjugate Vacci ne, 20-valent ([id number]) 06/03/2023(Deferred: Patient Refused) Seasonal Influenza, PF, 6 [...] Sign Reading Time Taken Comments Blood Pressure 165/94 09/08/2023 9:40 AM EDT Pulse 55 09/08/2023 9:40 AM EDT Temperature 36.4 C (97.5 F) 09/08/2023 9:40 AM ED T Respiratory Rate 18 09/08/2023 9:40 AM EDT Oxygen Saturation 96% 09/08/2023 9:40 AM EDT Inhaled Oxygen Concentration - - Weight 75.1 kg (165 lb 9.6 oz) 09/08/2023 9:40 A M EDT Height - - Body Mass Index 23.76 08/21/2023 10:48 AM EDT documented in this encounter Nursing Notes * Martha Rosa RN - 09/08/2023 1:15 PM EDT Goals: Patient will remain free from injury. Possible barriers to meeting goals: ambulating with IV pole, use of wheelchair, hx stoke with L side affected, use of cane when standing Stability of the patient: Moderately stable - low risk of patient condition declining or worsening Summary regarding today's goals: Met: pt remained free of harm today Patient tolerated treatment well without any acute issues or problems. Patient left facility in stable condition, in wheelchair with , and denied any further needs. * Martha Rosa RN - 09/08/2023 9:56 AM EDT Chair 9. Patient here for C3/D1 - Gemzar/Abraxane. Patient is overall feeling well. Potassium is 3.2 and alk phos noted to be increased to 292 today. AST/ALT are WNL. Lab results within last 7 days (see chart for full results) Units 09/08/23 0845 Protein g/dL 6.9 Bilirubin, Total mg/dL 0.7 Alkaline Phosphatase U/L 292* AST U/L 33 ALT U/L [address] Franklin. Okay to treat and will add 20 meq IV potassium today as well. Chemotherapy/Immunotherapy agents: ABRAXANE and GEMZAR Consent for chemotherapy drug treatment complete, dated, and signed? yes, date - 06/22/2023 Treatment lab parameters met? Yes Has treatment weight changed > than 10%? No Treatment preauthorized? Yes VITALS Filed Vitals: 09/08/23 0940 BP: 165/94 Pulse: 55 Resp: 18 Temp: 36.4 C (97.5 F) TempSrc: Tympanic SpO2: 96% Weight: 75.1 kg (165 lb 9.6 oz) Urine protein: N/A Patient education completed for treatment? Yes Blood transfusion consent signed and complete? NA Return appointment scheduled? Yes Patient had provider visit today? No - If no provider visit must complete Pretreatment Assessment Functional Status: Functional status at today's visit: [...] symptoms or adverse side effects during treatment. PRE-TREATMENT ASSESSMENT: NEURO: fatigue:typically fatigued following treatments, then it passes CV/RESP: denies symptoms GI/: nausea: says he usually is not nauseas and says when he takes his PRN meds at home, he is usually good all day. However, he does say that before he vomits, he does sometimes feel a little nauseas and vomiting: says he was vomiting about once a day before his chemo started d/t other issues, says hestill does vomit about just 1x/day when he does but not every day. Sometimes says nothing seems to trigger the vomiting OTHER: denies any additional symptoms PAIN: 0 Safety and Risk for Injury Patient will remain free from injury. Ensure appropriate safety devices are available. Provide and maintain safe environment. documented in this encounter Plan of Treatment Upcoming Encounters Date Type Department Care Team (Late st Contact Info) Description 09/13/2023 1:00 PM EDT Office Visit Gastroenterology, [facility] [address] [facility] [place] [address] Kacey Cárdenas CRNP [address] [facility] [place] [address] 09/15/2023 10:30 AM EDT Laboratory Laboratory [facility] [address] [facility] [place] [phone] [place], Lab [facility] [address] [facility] [place] [address] 09/15/2023 11:00 AM EDT Office Visit Hematology/Oncology [facility] [address] [facility] [place] [phone] Hannah Guillory CRNP [address] [facility] [place] [address] 09/15/2023 11:30 AM EDT Hem/Onc Treatment [facility]cology Treatment, [place] [facility] [phone] [place], Chair 7 Hem Onc [facility] [address] [facility] [place] [address] 10/10/2023 1:45 PM EDT Imaging [facility] [address] [facility] [place] [address] 02/22/2024 11:50 AM EDT Office Visit [facility] [address] [facility], [place] [phone] Mary Calderón, [address] [place] [address] Scheduled Procedures Name Priority Associated Diagnoses Date/Ti [...] this encounter Medical Devices Implanted Type Area Boot Repairer Device Identifier Shelf Expiration Date Model / Serial / Lot Port 8fr 1lumen Infusion St Latexfree Power Implantable - [id number] Implanted:Qty: 1 on 07/07/2023 by Acosta Mathur MD at OR [facility] Left: Chest CR BARD : PERIPHERAL VASCULAR [id number] 05/04/2024 [id number] / / [id number] Stent Axios [id number] - [id number] Implanted:Qty: 1 on 08/11/2023 by Jayashree Alston MD at OR [facility] [employer] : ENDOSCOPY [id number] 06/19/2025 [id number] / / [id number] Stent Biliary Adult L30mm Dia1 - [id number] Implanted:Qty: 1 on 08/11/2023 by Jayashree Alston MD at OR [facility] COOK : SANDRA MTZ [id number] 06/21/2026 [id number] / / [id number] documented as of this encounter Visit Diagnoses [...] ONCE PRN Other, Hypersensitivity Reaction, Starting on Mon09/08/23 at 1020, Until 09/09/23 at 1019, For 24 hours EPINEPHrine 1 MG/ML inj 0.3 mg 0.3 mg, Intramuscular, ONCE PRN Other, Hypersensitivity Reaction or Anaphylaxis, Starting on Mon09/08/23 at 1020, Until 09/09/23 at 1019, For 24 hours hEParin 100 UNIT/ML Lock Flush inj 500 Units 500 Units (5 mL), IV Lock, PRN Other, IV Flush, Starting on Mon09/08/23 at 1020, Until 09/09/23 at 1019, For 24 hours, Do not flush if lock, PICC, or central line not in place; IV infusing or unable to flush. Given 09/08/2023 1:11 PM EDT 500 Units Hydrocortisone Sod Suc (PF) (Solu-Cortef) inj 100 mg 100 mg, IV Push, ONCE PRN Other, Hypersensitivity Reaction, Starting on Mon09/08/23 at 1020, Until 09/09/23 at 1019, For 24 hours LORAzepam (Ativan) tab 0.5 mg 0.5 mg, Oral, ONCE PRN Anxiety, Nausea, Starting on Mon09/08/23 at 1130, Until Discontinued NSS infusion Intravenous, at 50 mL/hr, PRN, Starting on Mon09/08/23 at 1130, Until Discontinued, Maintenance line Start Infusion 09/08/2023 10:34 AM EDT 50 mL/hr oxygen GAS Inhalation, OXYGEN, First dose on Mon09/08/23 at 1100, Until Discontinued, Device/Managed by: Low Flow Device, [...] Push, PRN Other, IV Flush, Starting on Mon09/08/23 at 1020, Until 09/09/23 at 1019, For 24 hours, Do not flush if lock, PICC, or central line not in place; IV infusing or unable to flush. Given 09/08/2023 1:11 PM EDT 10 mL Inactive Administered Medications - up to 3 most recent administrations Medication Order MAR Action Action Date Dose Rate Site gemcitabine (Gemzar) 2,000 mg in NSS 250 mL infusion 2,000 mg (rounded from 2,050 mg = 1,000 mg/m2 2.05 m2 Treatment Plan BSA from Recorded weight), IV Piggyback, ONCE, 1 dose, On Mon09/08/23 at 1230, Administer over 30 Minutes Start Infusion 09/08/2023 12:16 PM EDT 2,000 mg 500 mL/hr ondansetron (Zofran) tab 8 mg 8 mg, Oral, ONCE, On Mon09/08/23 at 1045, For 1 dose, Give 30 minutes prior to chemotherapy. Given 09/08/2023 10:34 AM EDT 8 mg PACLitaxel protein-bound (Abraxane) inj 260 mg 260 mg (rounded from 256.25 mg = 125 mg/m2 2.05 m2 Treatment Plan BSA from Recorded weight), IV Piggyback, ONCE, 1 dose, On Mon09/08/23 at 1130, Administer over 30 Minutes, PROTECT FROM LIGHT Use Dedicated line Without Filter Start Infusion 09/08/2023 11:35 AM EDT 260 mg 104 mL/hr potassium chloride 10 mEq in 100 mL ivpb LOCKED DOSE 10 mEq, Peripheral IV, Q1H, 2 doses, First dose on Mon09/08/23 at 1200, Last dose on Mon09/08/23 at 1300, Administer over 60 Minutes, Standard infusion duration is 60 minutes. Start Infusion 09/08/2023 12:16 PM EDT 10 mEq 100 mL/hr Start Infusion 09/08/2023 10:35 AM EDT 10 mEq 100 mL/h r documented in this encounter Advance Directives Documents on File Type Date Recorded Patient Residential Sales Consultant Expl 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 Question Answer Comments Discussion of Advance Directives occurred with: Patient Care Teams Claim Trainee Relationship Specialty Start Date End Date Lenora Harding MD [address] [place] [id number] PCP - General Family Medicine 12/31/21 documented as of this encounter
--- OUTSIDE RECORDS SUMMARY | 2023-09-17 15:08 | External Medical Summary ---
Author Name Unknown Address Unknown Organization K01[facility] [place] [address] [place] [address] Laboratory Report Ordering Provider Test Date Status GINNY PATEL 09/08/2023 08:45:26 Final Observation Date Value Abnormality Reference (Units ) Status Cancer Ag 19-9 09/08/2023 08:45:26 138.4 Above high norm al <35.0 (U/mL) Final Performing Location [facility] - [address] [place] [address]
--- OUTSIDE RECORDS SUMMARY | 2023-09-17 15:08 | External Medical Summary ---
Author Name Unknown Address Unknown Organization K09:[facility] [place] [address] Laboratory Report Ordering Provider Test Date Status GINNY PATEL 09/15/2023 10:30:46 Final Observation Date Value Abnormality Reference (Units ) Status SYNC LEUKOCYTES IN BLOOD BY AUTOMATED COUNT 09/15/2023 10:30:46 2.98 Below low normal 4.00-10.80 (K/uL) Final Segs 09/15/2023 10:30:46 69.5 40.0-75.0 (%) Final Lymphs % 09/15/2023 10:30:46 22.1 18.0-42.0 (%) Final Monos 09/15/2023 10:30:46 6.7 1.0-11.0 (%) Final Eosinophils 09/15/2023 10:30:46 1.0 0.0-6.0 (%) Final Basos 09/15/2023 10:30:46 0.7 0.0-2.0 (%) Final Absolute Segs 09/15/2023 10:30:46 2.07 1.80-7.70 (K/uL) Final Lymphs, absolute 09/15/2023 10:30:46 0.66 Below low normal 1.00-4.80 (K/ul) Final Monos, Abs 09/15/2023 10:30:46 0.20 0.00-1.10 (K/uL) Final Eos, Abs 09/15/2023 10:30:46 0.03 0.00-0.70 (K/uL) Final Basos, Abs 09/15/2023 10:30:46 0.02 0.00-0.20 (K/uL) Final Performing Location [facility] [place] [address]
--- OUTSIDE RECORDS SUMMARY | 2023-09-17 15:08 | External Medical Summary ---
Author Name Unknown Address Unknown Organization K09:[facility] [address] [place] [address] Laboratory Report Ordering Provider Test Date Status GINNY PATEL 09/08/2023 08:45:26 Final Observation Date Value Abnormality Reference (Units ) Status SYNC LEUKOCYTES IN BLOOD BY AUTOMATED COUNT 09/08/2023 08:45:26 8.70 4.00-10.80 (K/uL) Final Neutrophils/100 leukocytes in Blood by Manual count 09/08/2023 08:45:26 55.0 40.0-75.0 (%) Final Lymphocytes/100 leukocytes in Blood by Manual count 09/08/2023 08:45:26 14.0 Below low normal 18.0-42.0 (%) Final Monocytes/100 leukocytes in Blood by Manual count 09/08/2023 08:45:26 26.0 Above high normal 1.0-11.0 (%) Final Eosinophils/100 leukocytes in Blood by Manual count 09/08/2023 08:45:26 5.0 0.0-6.0 (%) Final Neutrophils [#/volume] in Blood by Manual count 09/08/2023 08:45:26 4.79 1.80-7.70 (K/uL) Final Lymphocytes [#/volume] in Blood by Manual count 09/08/2023 08:45:26 1.22 1.00-4.80 (K/uL) Final Monocytes [#/volume] in Blood by Manual count 09/08/2023 08:45:26 2.26 Above high normal 0.00-1.10 (K/uL) Final Eosinophils [#/volume] in Blood by Manual count 09/08/2023 08:45:26 0.44 0.00-0.70 (K/uL) Final Nucleated erythrocytes/100 leukocytes [Ratio] in Blood by Automated count 09/08/2023 08:45:26 1 Above high normal <=0 (/100 WBCs) Final Performing Location [facility] [place] [address]
--- OUTSIDE RECORDS SUMMARY | 2023-09-17 15:09 | External Medical Summary | Summary of Care ---
Author Name Unknown Organization [facility] Address [address] [place] [address] Phone [phone] Care Team Providers Care Janitor Supervisor Name Role Phone Lenora Harding MD Primary Care Provid er Reason for Visit * Reason Comments Chemotherapy Gemzar/Abraxane * Episode Based Medications (Routine) - Authorized Specialty Diagnoses / Procedures Referred By Contjoseline brito Referred To Contact Diagnoses Encounter for antineoplastic chemotherapy Pancreatic cancer metastasized to liver (HCC) Procedures VA PACLITAXEL PROTEIN BOUND VA IN GEMCITABINE HCL NOS 200MG Ryne Acharya MD [address] [place] [id number] Anc Hem/Onc [address] [address] Referral ID Status Reason Start Date Expiration Date V isits Requested Visits Authorized [id number] Authorized 06/27/2023 12/26/2023 999 99 Encounter Details Date Type Department Care Team (Latest Contact Info) Description 08/25/2023 1:45 PM EDT Hem/Onc Treatment Hematology/Oncolog y Treatment, [address] [address] Encounter for antineoplastic chemotherapy*; Pancreatic cancer metastasized to liver (HCC) Allergies No known active allergiesdocumented as of this encounter (statuses as of 08/25/2023) Medications Medication Sig Dispensed Refills Start Date [...] Oral Tablet (Lopressor)Indication s:Coronary artery disease involving [place] heart, unspecified vessel or lesion type, unspecified [...] as of this encounter (statuses as of 08/25/2023) Active Problems Problem Noted Date Diagnosed Date [...] as of this encounter (statuses as of 08/25/2023) Resolved Problems Problem Noted Date Diagnosed Date [...] as of this encounter (statuses as of 08/25/2023) Immunizations Name Administration Dates Next Due Pneumococcal Conjugate Vacci ne, 20-valent ([id number]) 06/03/2023(Deferred: Patient Refused) Seasonal Influenza, PF, 6 [...] Sign Reading Time Taken Comments Blood Pressure 122/80 08/25/2023 1:56 PM EDT Pulse 59 08/25/2023 1:56 PM EDT Temperature 36.3 C (97.3 F) 08/25/2023 1:56 PM ED T Respiratory Rate 18 08/25/2023 1:56 PM EDT Oxygen Saturation 98% 08/25/2023 1:56 PM EDT Inhaled Oxygen Concentration - - Weight - - Height - - Body Mass Index - - documented in this encounter Nursing Notes * Yelena Marie RN - 08/25/2023 4:12 PM EDT Pt completed treatment without issues. VAD flushed with 10 ml NSS and Heparin 5 ml (100 units/ml). Espinoza needle removed intact. Goals: Pt will remain free from injury. Possible barriers to meeting goals: pt is a high fall risk Stability of the patient: Moderately stable - low risk of patient condition declining or worsening Summary regarding today's goals: Met: Pt remained free from injury during treatment today. Discharged in stable condition. No coverage. * Yelena Marie RN - 08/25/2023 1:53 PM EDT Chair 9 Chemotherapy/Immunotherapy agents: GEMZAR/ABRAXANE Consent for chemotherapy drug treatment complete, dated, and signed? yes, date - 06/22/23 Treatment lab parameters met? Yes AST/ALT slightly elevated; reviewed labs with Dr. Acharya and okay to proceed with treatment as ordered. Has treatment weight changed > than 10%? No Treatment preauthorized? Yes VITALS There were no vitals filed for this visit. Urine protein: N/A Patient education completed for treatment? Yes Blood transfusion consent signed and complete? NA Return appointment scheduled? Yes Patient had provider visit today? No - If no provider visit must complete Pretreatment Assessment PRE-TREATMENT ASSESSMENT: NEURO: denies symptoms CV/RESP: denies symptoms GI/: denies symptoms OTHER: denies any additional symptoms PAIN: 0 VAD accessed; NSS infusing. Safety and Risk for Injury Patient will remain free from injury. Ensure appropriate safety devices are available. Provide and maintain safe environment. Functional Status: Functional status at today's visit: [...] symptoms or adverse side effects during treatment. documented in this encounter Plan of Treatment Upcoming Encounters Date Type Department Care Team (Late st Contact Info) Description 08/30/2023 9:00 AM EDT Scheduled Telephone Palliative Medicine, [address] 5th [place] [address] [place], Nurse Palliative Medicine [address] [address] 08/30/2023 11:15 AM EDT Office Visit Hematology/Oncology [facility] [place] [address] [place] [phone] Ryne Acharya MD [address] [place] [address] [place] [address] 09/08/2023 8:30 AM EDT Laboratory Laboratory [facility] [place] [address] [place] [phone] [place] [address] [place] [address] 09/08/2023 9:30 AM EDT Hem/Onc Treatment Hematology/Oncology Treatment, [address] [place] [address] [place], Chair 5 Hem Onc [address] [place] [address] 09/13/2023 1:00 PM EDT Office Visit Gastroenterology, [facility] [address] [facility] [place] [address] Kacey Cárdenas CRNP [facility] [address] 09/15/2023 10:30 AM EDT Laboratory Laboratory [facility] [place] [address] [place] [phone] [place], Lab [facility] [address] [facility] [place] [address] 09/15/2023 11:00 AM EDT Office Visit Hematology/Oncology [facility] [place] [address] [place] [phone] Hannah Guillory, CADEN [address] [facility] [phone] 09/15/2023 11:30 AM EDT [facility] [address] [place] [phone] [place], Chair 7 Hem Onc Scenery [address] [facility] [place] [address] 02/22/2024 11:50 AM EDT Office Visit [facility] [address] [place] [address] Mary Calderón DO [address] [place], [place] [phone] Scheduled Procedures Name Priority Associated Diagnoses Date/Ti [...] Depression Screening 03/16/2023 03/16/2022, 03/03/20 16 HbA1c 11/18/2023 05/19/2023, 02/09/2023 Albumin/Creatinine Ratio 05/11/2024 05/11/2023, 04/05 GFR [...] this encounter Medical Devices Implanted Type Area Aix System Administrator Device Identifier Shelf Expiration Date Model / Serial / Lot Port 8fr 1lumen Infusion St Latexfree Power Implantable - [id number] Implanted:Qty: 1 on 07/07/2023 by Acosta Mathur MD at OR [facility] Left: Chest CR BARD : PERIPHERAL VASCULAR [id number] 05/04/2024 [id number] / / [id number] Stent Axios [id number] - [id number] Implanted:Qty: 1 on 08/11/2023 by Jayashree Alston MD at OR [facility] [employer] : ENDOSCOPY [id number] 06/19/2025 [id number] / / [id number] Stent Biliary Adult L30mm Dia1 - [id number] Implanted:Qty: 1 on 08/11/2023 by Jayashree Alston MD at OR [facility] BIBI : SANDRA MTZ [id number] 06/21/2026 [id number] / / [id number] documented as of this encounter Visit Diagnoses [...] ONCE PRN Other, Hypersensitivity Reaction, Starting on Mon08/25/23 at 1352, Until 08/26/23 at 1351, For 24 hours EPINEPHrine 1 MG/ML inj 0.3 mg 0.3 mg, Intramuscular, ONCE PRN Other, Hypersensitivity Reaction or Anaphylaxis, Starting on Mon08/25/23 at 1352, Until 08/26/23 at 1351, For 24 hours hEParin 100 UNIT/ML Lock Flush inj 500 Units 500 Units (5 mL), IV Lock, PRN Other, IV Flush, Starting on Mon08/25/23 at 1352, Until 08/26/23 at 1351, For 24 hours, Do not flush if lock, PICC, or central line not in place; IV infusing or unable to flush. Given 08/25/2023 4:00 PM EDT 500 Units Hydrocortisone Sod Suc (PF) (Solu-Cortef) inj 100 mg 100 mg, IV Push, ONCE PRN Other, Hypersensitivity Reaction, Starting on Mon08/25/23 at 1352, Until 08/26/23 at 1351, For 24 hours LORAzepam (Ativan) tab 0.5 mg 0.5 mg, Oral, ONCE PRN Anxiety, Nausea, Starting on Mon08/25/23 at 1500, Until Discontinued NSS infusion Intravenous, at 50 mL/hr, PRN, Starting on Mon08/25/23 at 1500, Until Discontinued, Maintenance line Start Infusion 08/25/2023 2:02 PM EDT 50 mL/hr oxygen GAS Inhalation, OXYGEN, First dose on Mon08/25/23 at 1600, Until Discontinued, Device/Managed by: Low [...] Push, PRN Other, IV Flush, Starting on Mon08/25/23 at 1352, Until 08/26/23 at 1351, For 24 hours, Do not flush if lock, PICC, or central line not in place; IV infusing or unable to flush. Given 08/25/2023 3:59 PM EDT 10 mL Inactive Administered Medications - up to 3 most recent administrations Medication Order MAR Action Action Date Dose Rate Site gemcitabine (Gemzar) 2,000 mg in NSS 250 mL infusion 2,000 mg (rounded from 2,050 mg = 1,000 mg/m2 2.05 m2 Treatment Plan BSA from Recorded weight), IV Piggyback, ONCE, 1 dose, On Mon08/25/23 at 1600, Administer over 30 Minutes Start Infusion 08/25/2023 3:26 PM EDT 2,000 mg 500 mL/hr ondansetron (Zofran) tab 8 mg 8 mg, Oral, ONCE, On Mon08/25/23 at 1500, For 1 dose, Give 30 minutes prior to chemotherapy. Given 08/25/2023 2:02 PM EDT 8 mg PACLitaxel protein-bound (Abraxane) inj 260 mg 260 mg (rounded from 256.25 mg = 125 mg/m2 2.05 m2 Treatment Plan BSA from Recorded weight), IV Piggyback, ONCE, 1 dose, On Mon08/25/23 at 1530, Administer over 30 Minutes, PROTECT FROM LIGHT Use Dedicated line Without Filter Start Infusion 08/25/2023 2:49 PM EDT 260 mg 104 mL/hr documented in this encounter Advance Directives Documents on File Type Date Recorded Patient Nut Dehydrator Operator Expl 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 Question Answer Comments Discussion of Advance Directives occurred with: Patient Care Teams Janitor Supervisor Relationship Specialty Start Date End Date Lenora Harding MD [address] [facility] [place], [place] [phone] PCP - General Family Medicine 12/31/21 documented as of this encounter
--- OUTSIDE RECORDS SUMMARY | 2023-09-17 15:09 | External Medical Summary | Summary of Care ---
Author Name Unknown Organization [facility] Address [address] [place] [address] Phone [phone] Care Team Providers Care Manager Reliability Name Role Phone Lenora Harding MD Primary Care Provid er Reason for Visit * Reason Comments Chemotherapy C2/D1 - Gemzar/Abrax ane * Episode Based Medications (Routine) - Authorized Specialty Diagnoses / Procedures Referred By Yury t Referred To Contact Diagnoses Encounter for antineoplastic chemotherapy Pancreatic cancer metastasized to liver (HCC) Procedures [place] PACLITAXEL PROTEIN BOUND [place] IN GEMCITABINE HCL NOS 200MG Ryne Acharya MD [address] [place] [address] [place] [address] Anc Hem/Onc [address] [address] Referral ID Status Reason Start Date Expiration Date V isits Requested Visits Authorized [id number] Authorized 06/27/2023 12/26/2023 999 99 Encounter Details Date Type Department Care Team (Latest Contact Info) Description 08/18/2023 1:45 PM EDT Hem/Onc Treatment Hematology/Oncolog y Treatment, [address] [phone] [place] Chair 8 Hem On[address] [place] [address] Encounter for antineoplastic chemotherapy*; Pancreatic cancer metastasized to liver (HCC) Allergies No known active allergiesdocumented as of this encounter (statuses as of 08/18/2023) Medications Medication Sig Dispensed Refills Start Date [...] Pain, Severe. 30 Tablet 0 07/14/2023 Active Tresiba FlexTouch 100 UNIT/ML Subcutaneous Solution Pen-injector (Insulin Degludec)Indications: Pancreatic cancer metastasized to liver (HCC),Type 2 diabetes mellitus with hyperglycemia, without long-term current use of insulin (HCC) Inject 10 Units under the skin in the morning. 3 mL 3 07/14/2023 Active Additional Information Patient not taking.Reported on 08/07/2023 Lantus SoloStar 100 UNIT/ML Subcutaneous Solution Pen-injectorIndicatio [...] Oral Tablet (Lopressor)Indication s:Coronary artery disease involving [place] heart, unspecified vessel or lesion type, unspecified whether angina present Take 1 Tablet by mouth in the morning. 90 Tablet 1 07/25/2023 Active glipiZIDE ER 2.5 MG Oral Tablet Extended Release 24 Hour (glipiZIDE XL)Indications:Type 2 diabetes mellitus without complication, without long-term current use of insulin (HCC) Take 1 Tablet by mouth in the morning. 30 minutes before a meal.. 90 Tablet 3 07/25/2023 Active Additional Information Patient not taking.Reported on 08/03/2023 Pantoprazole Sodium 40 MG Oral Tablet Delayed Release (Protonix) Take 1 Tablet by mouth in the morning and 1 Tablet before bedtime. 30 minutes before the first meal of the day. Do not crush, split or chew the tablet. 60 Tablet 5 08/03/2023 Active documented as of this encounter (statuses as of 08/18/2023) Active Problems Problem Noted Date Diagnosed Date [...] as of this encounter (statuses as of 08/18/2023) Resolved Problems Problem Noted Date Diagnosed Date [...] as of this encounter (statuses as of 08/18/2023) Immunizations Name Administration Dates Next Due Pneumococcal Conjugate Vacci ne, 20-valent ([id number]) 06/03/2023(Deferred: Patient Refused) Seasonal Influenza, PF, 6 [...] Sign Reading Time Taken Comments Blood Pressure 137/91 08/18/2023 1:45 PM EDT Pulse 65 08/18/2023 1:45 PM EDT Temperature 36.5 C (97.7 F) 08/18/2023 1:45 PM ED T Respiratory Rate 16 08/18/2023 1:45 PM EDT Oxygen Saturation 96% 08/18/2023 1:45 PM EDT Inhaled Oxygen Concentration - - Weight 78.6 kg (173 lb 3.2 oz) 08/18/2023 1:45 P M EDT Height - - Body Mass Index 24.85 08/11/2023 1:11 PM EST documented in this encounter Nursing Notes * Martha Rosa RN - 08/18/2023 4:07 PM EDT Goals: Patient will remain free [...] further needs. * Martha Rosa RN - 08/18/2023 2:05 PM EDT Chair 9. Patient here for Gemzar/Abraxane tx, C2 /D1 today. Patient overall says he is feeling well, no acute issues or complaints. Patient was in the hospital recently and had been on abx for gallbladder perwife, completed this past Sunday 08/13. Feeling better. Chemotherapy/Immunotherapy agents: Abraxane and GEMZAR Consent for chemotherapy drug treatment complete, dated, and signed? yes, date - 06/22/2023 Treatment lab parameters met? Yes Has treatment weight changed > than 10%? No Treatment preauthorized? Yes VITALS Filed Vitals: 08/18/23 1345 BP: 137/91 Pulse: 65 Resp: 16 Temp: 36.5 C (97.7 F) TempSrc: Tympanic SpO2: 96% Weight: 78.6 kg (173 lb 3.2 oz) Urine protein: N/A Patient education completed [...] side effects during treatment. PRE-TREATMENT ASSESSMENT: NEURO: denies symptoms and OTHER: hx of stroke, L arm difficult to move and R leg in brace, uses wheelchair but able to stand/pivot/ambulate somewhat with cane and assistance CV/RESP: denies symptoms GI/: denies symptoms OTHER: denies any additional symptoms PAIN: 0 Safety and Risk for Injury Patient will remain free from injury. Ensure appropriate safety devices are available. Provide and maintain safe environment. documented in this encounter Plan of Treatment Upcoming Encounters Date Type Department Care Team (Late st Contact Info) Description 08/21/2023 10:50 AM EDT Office Visit [facility] [address] [place] [phone] Mary Calderón, [address] [place] [address] 08/25/2023 12:40 PM EDT Laboratory Laboratory [facility] [place] [address] [place] [phone] [place] [address] [place] [address] 08/25/2023 1:45 PM EDT Hem/Onc Treatment Hematology/Oncology Treatment, [address] [place] [phone] 08/30/2023 9:00 AM EDT Scheduled Telephone Palliative Medicine, [facility] [address] [facility] 5th [place] [address] [place], Nurse Palliative Medicine [facility] [address] [place] [address] 08/30/2023 11:15 AM EDT Office Visit Hematology/Oncology [facility] [place] [address] [place] [address] [phone] Ryne Acharya MD [address] [place] [address] 09/08/2023 8:30 AM EDT Laboratory Laboratory [facility] [place] [address] [place] [phone] [place] [address] [place] [address] 09/08/2023 9:30 AM EDT [facility] [address] [facility] [phone] [place], Chair 5 Hem Onc [facility] [address] [facility] [place] [address] 09/13/2023 1:00 PM EDT Office Visit Gastroenterology, [facility] [address] [place] [address] Kacey Cárdenas CRNP [address] [facility] [place] [address] 09/15/2023 10:30 AM EDT Laboratory Laboratory [facility] [address] [place] [phone] [place], Lab [address] [facility] [place] [address] 09/15/2023 11:00 AM EDT Office Visit Hematology/Oncology [address] [place] [phone] Hannah Guillory CRNP [address] [place] [address] 09/15/2023 11:30 AM EDT Hem[facility] [address] [facility] [phone] [place], Chair 7 Hem On[address] [place] [address] Scheduled Procedures Name Priority Associated Diagnoses Date/Ti [...] 02/09/2023 Albumin/Creatinine Ratio 05/11/2024 05/11/2023, 04/05 GFR 08/17/2024 08/18/2023, 09/2023, 07/25/2023, Additional history exists COLONOSCOPY-EVERY 5 YRS AGES 18-100 07/19/2027 07/19/2022, 07/19/2022, 04/12/2017, Additional history exists Zoster Vaccines Completed 03/16/2021, 09/11/2020 GARDASIL-HPV IMMUNIZATION SERIES Aged Out No longer eligible based on patient's age to complete this topic MENINGOCOCCAL (MENACTRA/MENVEO) Aged Out No longer eligible based on patient's age to complete this topic documented as of this encounter Medical Devices Implanted Type Area Rivet Sticker Device Identifier Shelf Expiration Date Model / Serial / Lot Port 8fr 1lumen Infusion St Latexfree Power Implantable - [id number] Implanted:Qty: 1 on 07/07/2023 by Acosta Mathur MD at OR [facility] Left: Chest CR BARD : PERIPHERAL VASCULAR [id number] 05/04/2024 [id number] / / [id number] Stent Axios 56xse17rd - [id number] Implanted:Qty: 1 on 08/11/2023 by Jayashree Alston MD at OR [facility] [employer] : ENDOSCOPY [id number] 06/19/2025 [id number] / / [id number] Stent Biliary Adult L30mm Dia1 - [id number] Implanted:Qty: 1 on 08/11/2023 by Jayashree Alston MD at OR [facility] BIBI : SANDRA MTZ [id number] 06/21/2026 [id number] / / [id number] documented as of this encounter Visit Diagnoses [...] ONCE PRN Other, Hypersensitivity Reaction, Starting on Mon08/18/23 at 1356, Until 08/19/23 at 1355, For 24 hours EPINEPHrine 1 MG/ML inj 0.3 mg 0.3 mg, Intramuscular, ONCE PRN Other, Hypersensitivity Reaction or Anaphylaxis, Starting on Mon08/18/23 at 1356, Until 08/19/23 at 1355, For 24 hours hEParin 100 UNIT/ML Lock Flush inj 500 Units 500 Units (5 mL), IV Lock, PRN Other, IV Flush, Starting on Mon08/18/23 at 1356, Until 08/19/23 at 1355, For 24 hours, Do not flush if lock, PICC, or central line not in place; IV infusing or unable to flush. Given 08/18/2023 3:58 PM EDT 500 Units Hydrocortisone Sod Suc (PF) (Solu-Cortef) inj 100 mg 100 mg, IV Push, ONCE PRN Other, Hypersensitivity Reaction, Starting on Mon08/18/23 at 1356, Until 08/19/23 at 1355, For 24 hours LORAzepam (Ativan) tab 0.5 mg 0.5 mg, Oral, ONCE PRN Anxiety, Nausea, Starting on Mon08/18/23 at 1500, Until Discontinued NSS infusion Intravenous, at 50 mL/hr, PRN, Starting on Mon08/18/23 at 1500, Until Discontinued, Maintenance line Start Infusion 08/18/2023 2:03 PM EDT 50 mL/hr oxygen GAS Inhalation, OXYGEN, First dose on Mon08/18/23 at 1600, Until Discontinued, Device/Managed by: Low [...] Push, PRN Other, IV Flush, Starting on Mon08/18/23 at 1356, Until 08/19/23 at 1355, For 24 hours, Do not flush if lock, PICC, or central line not in place; IV infusing or unable to flush. Given 08/18/2023 3:58 PM EDT 10 mL Inactive Administered Medications - up to 3 most recent administrations Medication Order MAR Action Action Date Dose Rate Site gemcitabine (Gemzar) 2,000 mg in NSS 250 mL infusion 2,000 mg (rounded from 2,050 mg = 1,000 mg/m2 2.05 m2 Treatment Plan BSA from Recorded weight), IV Piggyback, ONCE, 1 dose, On Mon08/18/23 at 1600, Administer over 30 Minutes Start Infusion 08/18/2023 3:25 PM EDT 2,000 mg 500 mL/hr ondansetron (Zofran) tab 8 mg 8 mg, Oral, ONCE, On Mon08/18/23 at 1500, For 1 dose, Give 30 minutes prior to chemotherapy. 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 Question Answer Comments Discussion of Advance Directives occurred with: Patient Care Teams Manager Reliability Relationship Specialty Start Date End Date Lenora Harding MD [address] [place] [address] PCP - General Family Medicine 12/31/21 documented as of this encounter
--- OUTSIDE RECORDS SUMMARY | 2023-09-17 15:09 | External Medical Summary | Summary of Care ---
Author Name Unknown Organization [facility] Address [address] [place] [address] Phone [phone] Care Team Providers Care Senior Brand Manager Name Role Phone Lenora Harding MD Primary Care Provid er Reason for Visit * Reason Comments Outpatient Testing Encounter Details Date Type Department Care Team (Late st Contact Info) Description 08/18/2023 12:40 PM EDT Laboratory Laboratory [facility] [address] [place] [phone] [place], Lab Scenery [address] [place] [address] Pancreatic cancer metastasized to liver (HCC) Allergies [...] goal of less than 7.0% ([facility]) USE UP TO FOUR TIMES DAILY FOR BLOOD GLUCOSE TESTING [address] 11 03/03/2023 Active metFORMIN HCl ER 500 MG Oral Tablet Extended Release 24 Hour (Glucophage XR)Indications:Type 2 diabetes mellitus with hemoglobin A1c goal of less than 7.0% ([facility]) Take 1 Tablet by mouth in the [...] Oral Tablet (Lopressor)Indication s:Coronary artery disease involving kalispel heart, unspecified vessel or lesion type, unspecified [...] Next Due Pneumococcal Conjugate Vacci ne, 20-valent ([id number]) 06/03/2023(Deferred: Patient Refused) Seasonal Influenza, PF, 6 [...] Care Team (Late st Contact Info) Description 08/18/2023 1:45 PM EDT Hem/Onc Treatment [facility] [place] [facility] [phone] [place], Chair 8 Hem Onc [address] [place] [address] Arrived 08/21/2023 10:50 AM EDT Office Visit [place] [address] [place] [phone] Mary Calderón, [address] [place] [address] 08/30/2023 9:00 AM EDT Scheduled Telephone Palliative Medicine, [facility] [address] [facility] 5th [place] [address] [place], Nurse Palliative Medicine [address] [phone] 08/30/2023 11:15 AM EDT Office Visit Hematology/Oncology [facility] [place] [address] [facility] [place] [phone] Ryne Acharya MD 200 [facility] [place] [address] 01/22/2024 8:00 AM EDT Office Visit Gastroenterology, [facility] [address] [facility] [place] [address] Kacey Cárdenas CRNP [address] [place] [address] Pending Results Name Type Priority Associated Diagnoses Date /Time CBC WITH WBC DIFFERENTIAL Lab STAT Pancreatic cancer metastasized to liver (HCC) 08/18/2023 12:45 PM EDT COMPREHENSIVE METABOLIC PANEL Lab STAT Pancreatic cancer metastasized to liver (HCC) 08/18/2023 12:45 PM EDT CBC Lab STAT Pancreatic cancer metastasized to liver (HCC) 08/18/2023 12:45 PM EDT DIFFERENTIAL, AUTOMATED Lab STAT Pancreatic cancer metastasized to liver (HCC) 08/18/2023 12:45 PM EDT Scheduled Procedures Name Priority Associated Diagnoses [...] 02/09/2023 Albumin/Creatinine Ratio 05/11/2024 05/11/2023, 04/05 GFR 08/06/2024 08/07/2023, 07/07, 07/17/2023, Additional history exists COLONOSCOPY-EVERY 5 YRS AGES 18-100 07/19/2027 07/19/2022, 07/19/2022, 04/12/2017, Additional history exists Zoster Vaccines Completed 03/16/2021, 09/11/2020 GARDASIL-HPV IMMUNIZATION SERIES Aged Out No longer eligible based on patient's age to complete this topic MENINGOCOCCAL (MENACTRA/MENVEO) Aged Out No longer eligible based on patient's age to complete this topic documented as of this encounter Medical Devices Implanted Type Area Gwot Ia/Ilo Intelligence Support Device Identifier Shelf Expiration Date Model / Serial / Lot Port 8fr 1lumen Infusion St Latexfree Power Implantable - [id number] Implanted:Qty: 1 on 07/07/2023 by Acosta Mathur MD at [facility] Left: Chest CR BARD : PERIPHERAL VASCULAR [id number] 05/04/2024 [id number] / / [id number] Stent Axios [id number] - [id number] Implanted:Qty: 1 on 08/11/2023 by Jayashree Alston MD at [facility] [employer] : ENDOSCOPY [id number] 06/19/2025 [id number] / / [id number] Stent Biliary Adult L30mm Dia1 - [id number] Implanted:Qty: 1 on 08/11/2023 by Jayashree Alston MD at [facility] COOK : SANDRA MTZ [id number] 06/21/2026 [id number] / / [id number] documented as of this encounter Visit Diagnoses Diagnosis Pancreatic cancer metastasized to liver (HCC) Malignant neoplasm of pancreas, part unspecified documented in this encounter Advance Directives Documents on File Type Date Recorded Patient Hospice Liaison Expl 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 Question Answer Comments Discussion of Advance Directives occurred with: Patient Care Teams Senior Brand Manager Relationship Specialty Start Date End Date Lenora Harding MD [address] [place] [facility] [place] [address] PCP - General Family Medicine 12/31/21 documented as of this encounter
--- OUTSIDE RECORDS SUMMARY | 2023-09-17 15:09 | External Medical Summary ---
Author Name Unknown Address Unknown Organization K09:[facility] [place] [address] Laboratory Report Ordering Provider Test Date Status GINNY PATEL 08/18/2023 12:45:09 Final Observation Date Value Abnormality Reference (Units ) Status Nucleated erythrocytes/100 leukocytes [Ratio] in Blood by Automated count 08/18/2023 12:45:09 Final Performing Location [facility] [place] [address]
--- OUTSIDE RECORDS SUMMARY | 2023-09-17 15:09 | External Medical Summary ---
Author Name Unknown Address Unknown Organization : Laboratory Report Ordering Provider Test Date Status HOLLY SHAFER 08/11/2023 15:40:52 Final Observation Date Value Abnormality Reference (Units ) Status Glucose Point of Care 08/11/2023 15:40:52 173 Above high normal 70-120 (mg/dL) Final Performing Location
--- OUTSIDE RECORDS SUMMARY | 2023-09-17 15:09 | External Medical Summary ---
Author Name Unknown Address Unknown Organization [id number]:[facility] [address] [place] [address] Laboratory Report Ordering Provider Test Date Status GINNY PATEL 08/25/2023 12:48:22 Final Observation Date Value Abnormality Reference (Units ) Status SYNC LEUKOCYTES IN BLOOD BY AUTOMATED COUNT 08/25/2023 12:48:22 4.98 4.00-10.80 (K/uL) Final Segs 08/25/2023 12:48:22 63.1 40.0-75.0 (%) Final Lymphs % 08/25/2023 12:48:22 20.3 18.0-42.0 (%) Final Monos 08/25/2023 12:48:22 9.0 1.0-11.0 (%) Final Eosinophils 08/25/2023 12:48:22 6.8 Above high normal 0.0-6.0 (%) Final Basos 08/25/2023 12:48:22 0.8 0.0-2.0 (%) Final Absolute Segs 08/25/2023 12:48:22 3.14 1.80-7.70 (K/uL) Final Lymphs, absolute 08/25/2023 12:48:22 1.01 1.00-4.80 (K/ul) Final Monos, Abs 08/25/2023 12:48:22 0.45 0.00-1.10 (K/uL) Final Eos, Abs 08/25/2023 12:48:22 0.34 0.00-0.70 (K/uL) Final Basos, Abs 08/25/2023 12:48:22 0.04 0.00-0.20 (K/uL) Final Performing Location [facility] [place] [address]
--- OUTSIDE RECORDS SUMMARY | 2023-09-17 15:09 | External Medical Summary ---
Author Name Unknown Address Unknown Organization K01:[facility] - [address] [facility] [address] Laboratory Report Ordering Provider Test Date Status KIET ROSS 08/25/2023 12:48:37 Final Observation Date Value Abnormality Reference (Units ) Status HbA1C 08/25/2023 12:48:37 7.7 Above high normal 4. 0-5.6 (%) Final The use of HbA1c to monitor glycemic status is based on normal hemoglobin and HbA composition. This test should not be used in patients with abnormal hemoglobin that affects the half life of the red blood cell or the in vivo glycation rates. Glucose, estimated average 08/25/2023 12:48:37 174 Above high normal <126 (mg/dL) Paramjit mendez Performing Location [facility] - [address] [facility] [address]
--- OUTSIDE RECORDS SUMMARY | 2023-09-17 15:09 | External Medical Summary | Summary of Care ---
Author Name Unknown Organization [facility] Address [address] [place] [address] Phone [phone] Care Team Providers Care Cold Mill Operator Name Role Phone Lenora Harding MD Primary Care Provid er Reason for Visit * Reason Comments Chemotherapy Abraxane/Gemzar. * Episode Based Medications (Routine) - Authorized Specialty Diagnoses / Procedures Referred By Contjoseline t Referred To Contact Diagnoses Encounter for antineoplastic chemotherapy Pancreatic cancer metastasized to liver (HCC) Procedures [place] PACLITAXEL PROTEIN BOUND [place] IN GEMCITABINE HCL NOS 200MG Ryne Acharya MD [address] [facility] [address] Anc Hem/Onc [facility] [place] [address] [place] [phone] Referral ID Status Reason Start Date Expiration Date V isits Requested Visits Authorized [id number] Authorized 06/27/2023 12/26/[phone] Encounter Details Date Type Department Care Team (Latest Contact Info) Description 07/10/2023 1:00 PM EST Hem/Onc Treatment Hematology/Oncolog y Treatment, [address] [phone] [place], Chair [address] Hem On[address] [place] [address] Encounter for antineoplastic chemotherapy*; Pancreatic cancer metastasized [...] on 07/07/2023 Lidocaine-Prilocaine 2.5-2.5 % External Cream (Emla)Indications:Hien creatic cancer metastasized to liver (HCC) APPLY [...] obstruction 06/01/2023 Type 2 diabetes mellitus, [place] [facility] long-term current use of insulin 05/31/2023 [...] Next Due Pneumococcal Conjugate Vacci ne, 20-valent ([id number]) 06/03/2023(Deferred: Patient Refused) Seasonal Influenza, PF, 6 [...] 9:00 AM EDT Scheduled Telephone Palliative Medicine, [address] 5th Floor [place] [address] [place], Nurse Palliative Medicine [address] [phone] 08/30/2023 11:15 AM EDT Office Visit Hematology/Oncology [facility] [address] [place], [place] [phone] Ryne Acharya MD [address] [place], [place] [address] 09/08/2023 8:30 AM EDT Laboratory Laboratory [facility] [address] [place], [place] [phone] [place], Lab [facility] [address] [facility] [place] [address] 09/08/2023 9:30 AM EDT [facility] [address] [place], [place] [phone] [place], Chair [address] [place], [place] [address] 09/13/2023 1:00 PM EDT Office Visit Gastroenterology, [facility] [address] [place] [address] Kacey Cárdenas CRNP [address] [facility] [place] [address] 09/15/2023 10:30 AM EDT Laboratory Laboratory [facility] [address] [place], [place] [phone] [place], Lab [facility] 200 [facility] [place], [place] [address] 09/15/2023 11:00 AM EDT Office Visit Hematology/Oncology [facility] [address] [place], [place] [phone] Hannah Guillory CRNP [address] [place] [address] 09/15/2023 11:30 AM EDT Hem/Onc Treatment Hematology/Oncology Treatment, [place] [address] [place] [address] [place], Chair 7 Hem Onc [address] [place], [place] [address] 02/22/2024 11:50 AM EDT Office Visit [facility] [address] [place] [address] Mary Calderón, [address] [place] [address] Scheduled Procedures Name Priority Associated [...] this encounter Medical Devices Implanted Type Area Director Of Plant Operations Device Identifier Shelf Expiration Date Model / Serial / Lot Port 8fr 1lumen Infusion St Latexfree Power Implantable - [id number] Implanted:Qty: 1 on 07/07/2023 by Acosta Mathur MD at [facility] Left: Chest CR BARD : PERIPHERAL VASCULAR [id number] 05/04/2024 [id number] / / [id number] documented as of this encounter Visit Diagnoses [...] Documents on File Type Date Recorded Patient Safety Investigator Expl 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 Question Answer Comments Discussion of Advance Directives occurred with: Patient Care Teams Cold Mill Operator Relationship Specialty Start Date End Date Lenora Harding MD [address] [facility] [place] [address] PCP - General Family Medicine 12/31/21 documented as of this encounter
--- OUTSIDE RECORDS SUMMARY | 2023-09-17 15:09 | External Medical Summary | Summary of Care ---
Author Name Unknown Organization [facility] Address [address] [facility] [place] [address] Phone [phone] Care Team Providers Care Safe Expert Name Role Phone Lenora Harding MD Primary Care Provid er Reason for Visit * Auth/Cert Specialty Diagnoses / Procedures Referred By Contjoseline t Referred To Contact Diagnoses Cholecystitis Pancreatic cancer (HCC) Cholecystitis [K81.9] Pancreatic cancer (HCC) [C25.9] Procedures EGD, W/ENDOSCOPIC US ESOPHAGOGASTRODUODENOSCOPY (EGD), FLEXIBLE, TRANSORAL, ENDOSCOPIC ULTRASOUND Jayashree Alston MD [address] [place] [address] Or [facility] [address] [facility] [place] [address] Referral ID Status Reason Start Date Expiration Date Visits Re quested Visits Authorized [id number] [phone] Encounter Details Date Type Department Care Team (Latest Contact Info) Description 08/11/2023 12:47 PM EST - 08/11/2023 4:42 PM EST Hospital Encounter OR [facility], Operating Room, Main Hospital - 4th Floor [address] [facility] [place] [id number] Jayashree Alston MD [address] [place] [address] Various: UEUS,KRAVS Discharge Disposition: Home - Self Care Allergies No known active allergiesdocumented as of this encounter (statuses as of 08/12/2023) Medications Medication Sig Dispensed Refills Start Date [...] Oral Tablet (Lopressor)Indication s:Coronary artery disease involving [place] heart, unspecified vessel or lesion type, unspecified [...] as of this encounter (statuses as of 08/12/2023) Active Problems Problem Noted Date Diagnosed Date Encounter for antineoplastic chemotherapy 2023 FHx: pancreatic cancer 06/16/2023 Pancreatic cancer metastasized to liver 06/02/20 Gastric outlet obstruction 06/01/2023 Type 2 diabetes mellitus, [facility] long-term current use of insulin 05/31/2023 [...] as of this encounter (statuses as of 08/12/2023) Resolved Problems Problem Noted Date Diagnosed Date [...] as of this encounter (statuses as of 08/12/2023) Immunizations Name Administration Dates Next Due Pneumococcal Conjugate Vacci ne, 20-valent ([id number]) 06/03/2023(Deferred: Patient Refused) Seasonal Influenza, PF, 6 [...] Sign Reading Time Taken Comments Blood Pressure 153/95 08/11/2023 4:34 PM EST Pulse 79 08/11/2023 4:34 PM EST Temperature 36.1 C (97 F) 08/11/2023 4:34 PM EST Respiratory Rate 18 08/11/2023 4:34 PM EST Oxygen Saturation 95% 08/11/2023 4:34 PM EST Inhaled Oxygen Concentration - - Weight 84.4 kg (186 lb) 08/11/2023 1:11 PM EST Height 177.8 cm (5' 10") 08/11/2023 1:11 PM EST Body Mass Index 26.69 08/11/2023 1:11 PM EST documented in this encounter H&P Notes * Jayashree Alston MD - 08/11/2023 1:16 PM EST Endoscopy Pre-Procedure Assessment Name: Demar Ocampo Date: 08/11/2023 Time: 1:16 PM Procedure(s): ERCP; with Indication(s) of GB drain Endoscopic Ultrasound; with Indication(s) of Gb drain with Axios Endoscopy Pre-Procedure Assessment: Prior to the procedure, the patient was identified. The patient's history, medications and allergies were reviewed as per the Anesthesia Assessment. The patient is competent. The risks and benefits of the proposed procedure and the planned sedation were discussed with the patient. All questions were answered and informed consent for the procedure was obtained. Ht 1.778 m (5' 10") | Wt 84.4 kg (186 lb) | BMI 26.69 kg/m | BSA 2.04 m Review of patient's allergies indicates: No Known Allergies Prior to Admission medications Medication Sig Last Dose Discont. Pantoprazole Sodium 40 MG Oral Tablet Delayed Release (Protonix) Take 1 Tablet by mouth in the morning and 1 Tablet before bedtime. 30 minutes before the first meal of the day. Do not crush, split orchew the tablet. 08/11/2023 BD Pen Needle Stefanie 2nd Gen 32G X 4 MM (Insulin Pen Needle) Use to inject insulin daily as directed. Lantus SoloStar 100 UNIT/ML Subcutaneous Solution Pen-injector Inject 8 Units under the skin in themorning. 08/10/2023 Metoprolol Tartrate 50 MG Oral Tablet (Lopressor) Take 1 Tablet by mouth in the morning. 08/11/2023 oxyCODONE HCl 5 MG Oral Tablet (Oxy IR) Take 1 Tablet by mouth every 6 hours as needed for Pain, Severe. Past Month FLUoxetine HCl 40 MG Oral Capsule (PROzac) Take 1 Capsule by mouth in the morning. 08/11/2023 Baclofen 10 MG Oral Tablet (Lioresal) TAKE 1 AND 1/2 TABLETS BY MOUTH FOUR TIMES A DAY 08/11/2023 metFORMIN HCl ER 500 MG Oral Tablet Extended Release 24 Hour (Glucophage XR) Take 1 Tablet by mouthin the morning and 1 Tablet before bedtime. 08/10/2023 Clopidogrel Bisulfate 75 MG Oral Tablet (pLAVix) Take 1 Tablet by mouth in the morning. 08/07/2023 Ezetimibe 10 MG Oral Tablet (Zetia) Take 1 Tablet by mouth in the morning. 08/11/2023 Folic Acid 1 MG Oral Tablet TAKE 1 TABLET BY MOUTH EVERY DAY AT 9AM. 08/11/2023 Losartan Potassium 50 MG Oral Tablet (Cozaar) Take 1 Tablet by mouth in the morning. 08/11/2023 diphenhydrAMINE HCl 25 MG Oral Tablet Take 1 Tablet by mouth every 6 hours as needed for Itching. Past Month acetaminophen (TYLENOL) 500 MG Tablet Take by mouth as needed. Past Month aspirin enteric coated (ECOTRIN LOW STRENGTH) 81 MG TBEC Take 1 Tab by mouth daily. 08/11/2023 THIAMINE (VITAMIN B-1) 100 MG Tablet Take 1 Tablet by mouth in the morning. 08/11/2023 glipiZIDE ER 2.5 MG Oral Tablet Extended Release 24 Hour (glipiZIDE XL) Take 1 Tablet by mouth in the morning. 30 minutes before a meal.. Patient not taking: Reported on 08/03/2023 Not Taking Tresiba FlexTouch 100 UNIT/ML Subcutaneous Solution Pen-injector (Insulin Degludec) Inject 10 Unitsunder the skin in the morning. Patient not taking: Reported on 08/07/2023 Not Taking Lidocaine-Prilocaine 2.5-2.5 % External Cream (Emla) APPLY TO SKIN OVER MEDIPORT & COVER 1HR PRIOR TO ACCESSING. Patient not taking: Reported on 07/07/2023 Not Taking Ondansetron HCl 8 MG Oral Tablet (Zofran) Take 1 Tablet by mouth every 8 hours as needed for Nausea. Patient not taking: Reported on 07/07/2023 Not Taking Prochlorperazine Maleate 10 MG Oral Tablet (Compazine) Take 1 Tablet by mouth every 6 hours as needed for Nausea. Patient not taking: Reported on 07/07/2023 Not Taking OneTouch Verio In Vitro Strip (Glucose Blood) USE UP TO FOUR TIMES DAILY FOR BLOOD GLUCOSE TESTING BOTOX 100 units injection every 12 weeks. Patient not taking: Reported on 08/02/2023 Physical Exam: Mental Status Examination: alert and oriented. Airway Examination: normal oropharyngeal airway and neck mobility. Respiratory Examination: clear to auscultation. CV Examination: Regular rate and rythm, no murmurs. ASA Grade: III - A patient with severe systemic disease. After reviewing the risks and benefits, the patient was deemed in satisfactory condition to undergothe procedure. The anesthesia plan was to use general anesthesia. Patient was explained in detail regarding risks, benefits, limitations and alternatives of the above endoscopic procedure. Risks of intravenous sedation used for procedure were also explained. Risks include, but not limited to perforation, bleeding, infection, respiratory distress, cardiac arrest and . Risk of acute pancreatitis and necrosis if ERCP is done. Patient is also aware about the possibility of missed lesion. Patient's questions were answered. The patient verbalized understandingthe information and agreed to undergo the procedure. Discussed with the patient that he/she is at an explicit higher risk for complications in comparison to other patients Jayashree Alston MD 08/11/2023 documented in this encounter Procedure Notes * Lenora Harding MD - 08/11/2023 2:40 PM ESTAssociated Order(s): UPPER ENDOSCOPIC U/S [facility] Patient Name: Demar Ocampo Procedure Date: 08/11/2023 2:40 PM Date of : 1965 Admit Type: Outpatient Note Status: Finalized Date of : 1965 Admit Type: Outpatient Age: 58 Room: OR 2 Gender: Male Note Status: Finalized Procedure: Upper EUS Indications: Abnormal abdominal/pelvic CT scan, For cholecystoenterostomy, Recent acute cholecystitis Providers: Jayashree Alston MD (Doctor), Francis Tripathi MD: Lenora Harding Medicines: General Anesthesia, Cipro 400 mg IV Complications: No immediate complications. Procedure: Pre-Anesthesia Assessment: - Prior to the procedure, a History and Physical was performed, and patient medications, allergies and sensitivities were reviewed. The patient's tolerance of previous anesthesia was reviewed. - The risks and benefits of the procedure and the sedation options and risks were discussed with the patient. All questions were answered and informed consent was obtained. - Patient identification and proposed procedure were verified prior to the procedure by the physician and the nurse. The procedure was verified in the procedure room. - Pre-procedure physical examination revealed no contraindications to sedation. After obtaining informed consent, the endoscope was passed under direct vision. All instruments were visually inspected immediately before and after removal from the patient to ensure they are fully intact. Throughout the procedure, the patient's blood pressure, pulse, and oxygen saturations were monitored continuously. The Endosonoscope was introduced through the mouth, and advanced to the second part of duodenum. The upper EUS was accomplished without difficulty. The patient tolerated the procedure well. Findings & Specimens: ENDOSCOPIC FINDING: : The examined esophagus was normal. The entire examined stomach was normal. A previously placed metal stent was seen in the duodenal bulb. ENDOSONOGRAPHIC FINDING: : Stones and sludge was visualized endosonographically in the gallbladder. It was hyperechoic and characterized by shadowing. The decision was made to create a cholecystoduodenostomy using the AXIOS stent system. Once an appropriate position in the duodenal bulb just at the distal portion of the duodenal stent was identified, the common wall between the duodenum and the GB was interrogated utilizing color Doppler imaging to identify interposed vessels. The duodenal wall and the GB were punctured under endosonographic guidance with the 19 gauge needle. Bile was aspirated. The GB was injected with full strength ionic contrast and a cholecystogram was obtained under fluoroscopy. CBDwas patent. The AXIOS stent and electrocautery device was introduced through the working channel and advanced. Current was applied to the cautery tip and then used to increase the diameter of the stoma. The AXIOS device was advanced into the GB, and a 10 x 10 mm AXIOS stent was placed with the flangesin close approximation to the machuca of the GB and the duodenum through the cholecystoduodenostomy. The stent was successfully placed. A TTS dilator was passed through the scope. Dilation with an 8-9-10 mm x 5.5 cm CRE balloon dilator was performed to 8 mm under fluoroscopic guidance. I personally interpreted the fluoroscopic images. A 10 Fr x 3 cm double pigtail plastic Solus stent was placed across the Axios. Impression: - Normal esophagus. - Normal stomach. - Patent metal stent in the duodenum. - Stones and sludge was visualized endosonographically in the gallbladder with signs of cholecystitis. Cholecystoduodenostomy was performed using 10 mm Axios stent. Recommendation: - Discharge patient to home. - Full liquid diet for 1 day, then advance as tolerated to soft diet. - Resume Plavix (clopidogrel) at prior dose in 5 days. - Return to referring physician. Jayashree Alston MD 08/11/2023 3:41:02 PM This report has been signed electronically. Estimated Blood Loss: Estimated blood loss: none. documented in this encounter Nursing Notes * Lien Caban RN - 08/11/2023 4:41 PM EST [facility] [address] [facility] [address] [facility] Discharge Note Name: Demar Ocampo Date: 08/11/2023 Time: 4:41 PM Discharge Disposition: Home Responsible adult as escort home: Transport Mode: Wheelchair Accompanied by: Hieu Caban RN To: Car Belongings with patient: Yes Patient meets criteria to be transferred or discharged. * Kishor Bruce RN - 08/11/2023 3:18 PM EST EUS completed with axios stent/double pigtail stent placement. Sedated by RUG CLEANER HELPER. See anesthesia record for VS and medications given. Pt tolerated procedure well with minimal gagging. Abd soft. Airway patent. Pt to recovery on L side with HOB elevated. Report to recovery room nurse. Bedside cleaning done Noman Parks RN. documented in this encounter Miscellaneous Notes * Pt Handout (on AVS) - Lien Caban RN - 08/11/2023 3:49 PM EST Images from the original note were not included. [id number] Soft Diet Your healthcare provider has prescribed a soft diet. This means eating foods that are soft, low in fiber, and easy to digest. This diet is for people with digestive problems. This should not be confused with a soft diet that is prescribed for people with issues chewing and swallowing. A soft diet provides foods that are easy to chew and swallow. It will reduce or prevent stomach pain or discomfort. Foods should be bite-sized and very soft or moist. Follow your healthcare provider?s specific instructions about what foods and drinks you may have. The general guidelines below can help you get started on this diet. Beverages OK: Milk, tea, coffee, fruit juices, carbonated beverages, nutrition shakes, and drinks (Note: Thinliquids may be hard to swallow. They may need to be thickened.) Don't have: All are OK, unless they need to be thickened Breads and crackers OK: Refined white, wheat, or seedless rye bread; liberty or soda crackers that have been moistened; plain rolls or bagels; very soft tortillas Don't have: Whole-grain breads, rolls, or bagels with nuts, raisins, or seeds; crackers, croutons, taco shells Cereals and grains OK: Cooked cereals, plain dry cereals that have been moistened, plain macaroni, spaghetti, noodles,rice Don't have: Whole-grain cereals and granola, or cereals containing bran, raisins, seeds or nuts; coconut; brown or wild rice Desserts and sweets OK: Moist cake; soft fruit pie with bottom crust only; soft cookies moistened in milk or other liquid; gelatin, custard, pudding, plain ice cream, plain sherbet, sugar, honey, clear jelly Don't have: Pastries, desserts, and ice cream that have nuts, coconut, seeds, or dried fruit; popcorn; chips of any kind, including potato chips and tortilla chips; jam, marmalade Eggs and cheese OK: Poached, soft boiled, or scrambled eggs; cottage cheese, ricotta cheese, cream cheese, cheese sauces, or cheese melted in other dishes Don't have: [place] fried eggs, cheese slices and cubes Fruits OK: Avocado, banana, baked peeled apple, applesauce, peeled ripe peaches or pears, canned fruit (apricots, cherries, peaches, pears), melons Don't have: Raw apple, dried fruits, coconut, nicol, pineapple, grapes, fruit craig, fruit snacks Meat and fish OK: All fresh meat, poultry, or fish that is cooked until tender Don't have: Meat, fish, or poultry that is fried; tough or stringy meat, including espinal, sausage, bratwurst, jerky, corned beef Other protein foods OK: Tofu, baked beans, Don't have: Deep-fried tofu; crunchy peanut or other nut or seed butters; nuts or seeds that are whole or chopped Soups OK: All soups, but they may need to be thickened. Thin liquid may be too hard to swallow. Don't have: Soups made with stringy meat pieces or chunky vegetables Vegetables OK: Peeled and well-cooked potatoes or sweet potatoes; fresh, cooked, canned, or frozen vegetables without seeds, skin, or coarse fiber Don't have: Raw vegetables, deep-fried vegetables (such as tempura), and corn Last Reviewed Date: 01/03/202219997417-7632 [employer]. All rights reserved. This information is not intended as a substitute for professional medical care. Always follow your healthcare professional's instructions. * Pt Handout (on AVS) - Lien Caban RN - 08/11/2023 3:49 PM EST Images from the original note were not included. [id number] Full Liquid Diet A full liquid diet is a middle step between a clear liquid diet and eating solid foods. A clear liquid diet allows only liquids you can see through. A full liquid diet allows thicker liquid foods, aslisted below. It can be anything that is liquid at room temperature. The full liquid diet may be used before or after surgery. Or it may be used if you have a digestive illness. It's also used beforesome medical tests. It's easy to digest and leaves little food in the stomach and intestines. A full liquid diet meets calorie and protein needs for your body with liquids only. If it's to be used for more than 5 days, your healthcare provider or dietitian may also order high-protein, high-calorie liquid supplements. These will give you extra vitamins and minerals. You may include the itemsbelow on a full liquid diet. Adults Adults should drink a total of 2 to 3 quarts of liquid per day. It may be easier to drink small frequent servings rather than a few large ones. People with severe kidney or heart disease may need to limit the amount of fluid they take in. Check with your provider. Cereals and soups. Creamy hot breakfast cereals (wheat or rice) thinned with milk, pureed soups (including pureed meats, bland vegetables, and white potatoes), tomato puree. Desserts. Gelatin, whipped topping, custard-style yogurt, pudding, custard, plain ice cream, sherbet, sorbet, frozen fruit juice bars. Drinks. Coffee, tea, cream, milk, milkshakes, fruit and vegetable juices, sodas, mineral water (plain or flavored), liquid gelatin, electrolyte replacement sports drinks. Other items. Salt, mild-flavored seasonings, chocolate flavoring, gravy, margarine, sugar, syrup, jelly, honey, hard candy (to suck on). Children Follow the healthcare provider?s instructions. Young children who are eating solid foods may be able to have the items listed above without problems. Be sure to follow these safety measures: Don't give hard candies to young children. The candies may cause choking. Children under 1 year old. Don't give cow's milk or honey. It may cause illness. Children under 2 years old. Ask your child?s provider if you should supplement your child?s dietwith oral rehydration solutions, which have electrolytes. You can buy these drinks at pharmacies and grocery stores. You don?t need a prescription. Children over 1 year old. Limit milk to 2 or 3 cups per day. Too much milk can make your child less hungry for other foods. Last Reviewed Date: 11/03/202119998034-4479 The [employer]. All rights reserved. This information is not intended as a substitute for professional medical care. Always follow your healthcare professional's instructions. documented in this encounter Plan of Treatment Upcoming Encounters Date Type Department Care Team (Late st Contact Info) Description 08/18/2023 12:40 PM EDT Laboratory Laboratory [facility]azmin Reynoso [place] [address] [place] [phone] Grace Reynoso [address] [place] [address] 08/18/2023 1:45 PM EDT Hem/Onc Treatment Hematology/Oncology Treatment, [place] [address] [place] [address] [place], Chair 8 Hem Onc [facility] [address] [facility] [place] [address] 08/21/2023 10:50 AM EDT Office Visit [facility] [address] [place] [id number] Mary Calderón, [address] [place] [address] 08/30/2023 9:00 AM EDT Scheduled Telephone Palliative Medicine, [facility] [address] [facility] 5th [place] [address] Ar, Nurse Palliative Medicine [address] [place] [address] 08/30/2023 11:15 AM EDT Office Visit Hematology/Oncology [facility] [place] [address] [facility] [place] [phone] Ryne Acharya MD [address] [facility] [place] [address] 01/22/2024 8:00 AM EDT Office Visit [facility] [address] [address] Kacey Cárdenas CRNP [address] [place] [address] Scheduled Procedures Name Priority Associated Diagnoses Date/Ti [...] this encounter Medical Devices Implanted Type Area Pilot Teacher Device Identifier Shelf Expiration Date Model / Serial / Lot Port 8fr 1lumen Infusion St Latexfree Power Implantable - [id number] Implanted:Qty: 1 on 07/07/2023 by Acosta Mathur MD at OR [facility] Left: Chest CR BARD : PERIPHERAL VASCULAR [id number] 05/04/2024 [id number] / / [id number] Stent Axios [id number] - [id number] Implanted:Qty: 1 on 08/11/2023 by Jayashree Alston MD at OR [facility] [place] [employer] : ENDOSCOPY [id number] 06/19/2025 [id number] / / [id number] Stent Biliary Adult L30mm Dia1 - [id number] Implanted:Qty: 1 on 08/11/2023 by Jayashree Alston MD at OR [facility] BIBI : SANDRA MTZ [id number] 06/21/2026 [id number] / / [id number] documented as of this encounter Procedures Procedure Name Priority Date/Time Associated Diagnosis Comments GLUCOSE METER, POINT OF CARE [facility] 08/11/2023 3:40 PM EST US ENDOSCOPIC Routine 08/11/2023 3:30 PM EST FLUORO ERCP Routine 08/11/2023 3:28 PM EST UPPER ENDOSCOPIC U/S 08/11/2023 2:40 PM EST GLUCOSE METER, POINT OF CARE [facility] 08/11/2023 1:44 PM EST documented in this encounter Results * (ABNORMAL) GLUCOSE METER, POINT OF CARE (08/11/2023 3:40 PM EST) Glucose Meter 173(H) 70 - 120 mg/dL 08/11/2023 3:43 PM EST [facility] Blood Whole blood specimen / Unknown 08/11/2023 3:40 PM EST 08/11/2023 3:43 PM EST Jayashree Alston MD LAB POINT OF CARE T EST DOCKED DEVICE UNSOLICITED RESULTS [facility] [address] [place] [address] * US ENDOSCOPIC (08/11/2023 3:30 PM EST) Narrative Scheduling, Silent - 08/11/2023 3:30 PM EST This is an imaging study not interpreted or resulted by a [facility] or [facility] contracted radiologist. Jayashree Alston MD RAD ULTRASOUND * FLUORO ERCP (08/11/2023 3:28 PM EST) Narrative Scheduling, Silent - 08/11/2023 3:28 PM EST This procedure will not be read by a Radiologist. Please see operative note. Jayashree Alston MD RAD FLUOROSCOPY * UPPER ENDOSCOPIC U/S (08/11/2023 2:40 PM EST) 08/11/2023 2:40 PM EST Narrative Procedure Note Lenora Harding MD - 08/11/2023 2:40 PM EST [facility] Patient Name: Demar Ocampo Procedure Date: 08/11/2023 2:40 PM Date of : 1965 Admit Type: Outpatient Note Status:Finalized Date of : 1965 Admit Type: Outpatient Age: 58 Room: OR 2 Gender: Male Note Status: Finalized Procedure: Upper EUS Indications: Abnormal abdominal/pelvic CT scan, Forcholecystoenterostomy, Recent acute cholecystitis Providers: Jayashree Alston MD (Doctor), Francis Parks Referring MD: Lenora Harding Medicines: General Anesthesia, Cipro 400 mg IV Complications: No immediate complications. Procedure: Pre-Anesthesia Assessment: - Prior to the procedure, a History and Physicalwas performed, and patient medications, allergies and sensitivities werereviewed. The patient's tolerance of previous anesthesia was reviewed. - The risks and benefits of the procedure and thesedation options and risks were discussed with the patient. All questions wereanswered and informed consent was obtained. - Patient identification and proposed procedurewere verified prior to the procedure by the physician and the nurse. The procedure wasverified in the procedure room. - Pre-procedure physical examination revealed nocontraindications to sedation. After obtaining informed consent, the endoscope waspassed under direct vision. All instruments were visually inspected immediatelybefore and after removal from the patient to ensure they are fully intact. Throughoutthe procedure, the patient's blood pressure, pulse, and oxygen saturations weremonitored continuously. The Endosonoscope was introduced through the mouth, andadvanced to the second part of duodenum. The upper EUS was accomplished withoutdifficulty. The patient tolerated the procedure well. Findings & Specimens: ENDOSCOPIC FINDING: : The examined esophagus was normal. The entire examined stomach was normal. A previously placed metal stent was seen in the duodenal bulb. ENDOSONOGRAPHIC FINDING: : Stones and sludge was visualized endosonographically in thegallbladder. It was hyperechoic and characterized by shadowing. The decision was made to create acholecystoduodenostomy using the AXIOS stent system. Once an appropriate position in the duodenal bulb justat the distal portion of the duodenal stent was identified, the common wall between the duodenumand the GB was interrogated utilizing color Doppler imaging to identify interposed vessels. Theduodenal wall and the GB were punctured under endosonographic guidance with the 19 gauge needle.Bile was aspirated. The GB was injected with full strength ionic contrast and a cholecystogram wasobtained under fluoroscopy. CBD was patent. The AXIOS stent and electrocautery device was introducedthrough the working channel and advanced. Current was applied to the cautery tip and then used toincrease the diameter of the stoma. The AXIOS device was advanced into the GB, and a 10 x 10 mm AXIOSstent was placed with the flanges in close approximation to the machuca of the GB and the duodenum throughthe cholecystoduodenostomy. The stent was successfully placed. A TTS dilator was passed through thescope. Dilation with an 8-9-10 mm x 5.5 cm CRE balloon dilator was performed to 8 mm under fluoroscopicguidance. I personally interpreted the fluoroscopic images. A 10 Fr x 3 cm double pigtail plastic Solusstent was placed across the Axios. Impression: - Normal esophagus. - Normal stomach. - Patent metal stent in the duodenum. - Stones and sludge was visualizedendosonographically in the gallbladder with signs of cholecystitis. Cholecystoduodenostomy wasperformed using 10 mm Axios stent. Recommendation: - Discharge patient to home. - Full liquid diet for 1 day, then advance astolerated to soft diet. - Resume Plavix (clopidogrel) at prior dose in 5days. - Return to referring physician. Jayashree Alston MD 08/11/2023 3:41:02 PM This report has been signed electronically. Estimated Blood Loss: Estimated blood loss: none. Lenora Harding MD GASTRO UPPER * (ABNORMAL) GLUCOSE METER, POINT OF CARE (08/11/2023 1:44 PM EST) Glucose Meter 142(H) 70 - 120 mg/dL 08/11/2023 1:48 PM EST [facility] Blood Whole blood specimen / Unknown 08/11/2023 1:44 PM EST 08/11/2023 1:48 PM EST Jayashree Alston MD LAB POINT OF CARE T EST DOCKED DEVICE UNSOLICITED RESULTS [facility] [address] [place] [address] documented in this encounter Administered Medications Inactive Administered Medications - up to 3 most recent administrations Medication Order MAR Action Action Date Dose Rate Site isolyte-S pH 7.4 infusion Intravenous, Plasma-LYTE 148, isolyte-S, and isolyte-S pH 7.4 are considered equivalent - including for MAR barcode scanning., CONTINUOUS, Starting on Mon08/11/23 at 1330, Until Mon08/11/23 at 2041 Restarted 08/11/2023 2:39 PM EST New Bag 08/11/2023 1:53 PM EST 1,000 mL 10 mL/hr documented in this encounter Active and Recently Administered Medications Times are shown in EST. Scheduled Medication Order 08/09/2023 08/10/2023 08/11/2023 ciprofloxacin (Cipro) in D5W ivpb 400 mg (COMPLETED) IV Piggyback, 400 mg, ONCE, 1 dose, On Mon08/11/23 at 1515, Administer over 60 Minutes, PROTECT FROM LIGHT 1447 (Given - Provid er: Lion Crockett CRNA) Continuous Medication Order 08/09/2023 08/10/2023 08/11/2023 isolyte-S pH 7.4 infusion Intravenous, Plasma-LYTE 148, isolyte-S, and isolyte-S pH 7.4 are considered equivalent - including for MAR barcode scanning., CONTINUOUS, Starting on Mon08/11/23 at 1330, Until Mon08/11/23 at 2041 1353 (New Bag - Prov ider: Joyce Lopez RN)1438 (Paused - Provider: Lion Crockett CRNA - Comment: Switch to gravity)1439 (Restarted - Provider: Lion Crockett CRNA)1521 (Stopped - Provider: Lion Crockett CRNA) documented in this encounter Advance Directives Documents on File Type Date Recorded Patient Manager Heavy Equipment Expl bernardinoion POLST 08/03/2023 10:10 AM POLST (Morenita dos santos DNR) Latest Code Status on File Code Status Date Activated Date Inactivated Comments Full Code 05/30/2023 10:13 PM 06/03/2023 2:34 PM Th is order reflects the patients wishes and were consensually agreed upon. Question Answer Comments Discussion of Advance Directives occurred with: Patient Care Teams Safe Expert Relationship Specialty Start Date End Date Lenora Harding MD [address] [place] [address] PCP - General Family Medicine 12/31/21 documented as of this encounter
--- OUTSIDE RECORDS SUMMARY | 2023-09-17 15:09 | External Medical Summary ---
Author Name Unknown Address Unknown Organization K09:[facility] [place] [address] Laboratory Report Ordering Provider Test Date Status GINNY PATEL 08/18/2023 12:45:09 Final Observation Date Value Abnormality Reference (Units ) Status SYNC LEUKOCYTES IN BLOOD BY AUTOMATED COUNT 08/18/2023 12:45:09 10.44 4.00-10.80 (K/uL) Final Segs 08/18/2023 12:45:09 68.6 40.0-75.0 (%) Final Lymphs % 08/18/2023 12:45:09 14.3 Below low normal 18.0-42.0 (%) Final Monos 08/18/2023 12:45:09 9.3 1.0-11.0 (%) Final Eosinophils 08/18/2023 12:45:09 6.7 Above high normal 0.0-6.0 (%) Final Basos 08/18/2023 12:45:09 1.1 0.0-2.0 (%) Final Absolute Segs 08/18/2023 12:45:09 7.17 1.80-7.70 (K/uL) Final Lymphs, absolute 08/18/2023 12:45:09 1.49 1.00-4.80 (K/ul) Final Monos, Abs 08/18/2023 12:45:09 0.97 0.00-1.10 (K/uL) Final Eos, Abs 08/18/2023 12:45:09 0.70 0.00-0.70 (K/uL) Final Basos, Abs 08/18/2023 12:45:09 0.11 0.00-0.20 (K/uL) Final Performing Location [facility] [place] [address]
--- OUTSIDE RECORDS SUMMARY | 2023-09-17 15:09 | External Medical Summary ---
Author Name Unknown Address Unknown Organization : Laboratory Report Ordering Provider Test Date Status HOLLY SHAFER 08/11/2023 13:44:59 Final Observation Date Value Abnormality Reference (Units ) Status Glucose Point of Care 08/11/2023 13:44:59 142 Above high normal 70-120 (mg/dL) Final Performing Location
--- OUTSIDE RECORDS SUMMARY | 2023-09-17 15:09 | External Medical Summary | Summary of Care ---
Author Name Unknown Organization [facility] Address [address] [place] [address] Phone [phone] Care Team Providers Care City Collector Name Role Phone Lenora Harding MD Primary Care Provid er Reason for Visit * Reason Comments Status Check Return in 6 months Encounter Details Date Type Department Care Team (Late st Contact Info) Description 08/21/2023 10:50 AM EDT Office Visit [facility] [address] [place] [address] Mary Calderón, [address] [place] [address] Pancreatic cancer metastasized to liver (HCC)*; Left hemiplegia (HCC); Primary hypertension; Type 2 diabetes mellitus with hemoglobin A1c goal of less than 7.5% (HCC) Allergies No known active allergiesdocumented as of this encounter (statuses as of 08/21/2023) Medications Medication Sig Dispensed Refills Start Date [...] Active Lantus SoloStar 100 UNIT/ML Subcutaneous Solution Pen-injectorIndicati [...] Oral Tablet (Lopressor)Indicatio ns:Coronary artery disease involving [place] heart, unspecified vessel or lesion type, unspecified [...] the tablet. 60 Tablet 5 08/03/2023 Active Tresiba FlexTouch 100 UNIT/ML Subcutaneous Solution Pen-injector (Insulin Degludec)Indications :Pancreatic cancer metastasized to liver (HCC),Type 2 diabetes mellitus with hyperglycemia, without long-term current use of insulin (HCC) Inject 10 Units under the skin in the morning. 3 mL 3 07/14/2023 08/21/19 24 Discontinu ed(Dischar ged) glipiZIDE ER 2.5 MG Oral Tablet Extended Release 24 Hour (glipiZIDE XL)Indications:Type 2 diabetes mellitus without complication, without long-term current use of insulin (HCC) Take 1 Tablet by mouth in the morning. 30 minutes before a meal.. 90 Tablet 3 07/25/2023 08/21/19 24 Discontinu ed(Crissy rousseau) documented as of this encounter (statuses as of 08/21/2023) Active Problems Problem Noted Date Diagnosed Date [...] as of this encounter (statuses as of 08/21/2023) Resolved Problems Problem Noted Date Diagnosed Date [...] as of this encounter (statuses as of 08/21/2023) Immunizations Name Administration Dates Next Due Pneumococcal Conjugate Vacci ne, 20-valent ([id number]) 06/03/2023(Deferred: Patient Refused) Seasonal Influenza, PF, 6 [...] Not Answered Alcohol Use Standard Drinks/Week Comments Not Currently [...] Sign Reading Time Taken Comments Blood Pressure 132/60 08/21/2023 10:48 AM EDT Pulse 79 08/21/2023 10:48 AM EDT Temperature 36.2 C (97.1 F) 08/21/2023 1 0:48 AM EDT Respiratory Rate 18 08/21/2023 10:4 8 AM EDT Oxygen Saturation 98% 08/21/2023 10: 48 AM EDT Inhaled Oxygen Concentration - - Weight 79.3 kg (174 lb 12.8 oz) 024 10:48 AM EDT Height 177.8 cm (5' 10") 08/21/2023 10: 48 AM EDT Body Mass Index 25.08 08/21/2023 10:48 AM EDT documented in this encounter Progress Notes * Mary Calderón, - 08/21/2023 10:47 AM EDT Subjective: Demar Ocampo is a 58 year old male. Chief Complaint Patient presents with Status Check Return in 6 months HPI: 58 year old male with hx of stroke in 2017, hx of carotid disease, type 2 diabetes, residual hemiparesis L side, fatty liver, hx of alcohol use, and recently with Stage IV pancreatic cancer (liver mets), sounds like he had a bout of acute cholecystitis last month and no surgery was indicated at that time. And was dced on antibiotics. He had seen Surgery August 07 and agreed to monitor. Today is the first time I am seeing him. His and patient was not sure why I am seeing him today. Other than a follow-up. Current oncology treatment CURRENT TREATMENT: - Gemcitabine 1000 mg/m weekly x2 followed by 1 week off - Abraxane 125 mg/m weekly x2 followed by 1 week off - repeating chemotherapy every 21 days (.07/10/23 - ) On 08/10 underwent Procedure(s): ERCP; with Indication(s) of GB drain--he actually had Stent placed Endoscopic Ultrasound; with Indication(s) of Gb drain with Axios He is back on plavix. Held 24 hrs. He is taking asa 81 mg He had chemo on Monday. Today he feels okay, intermittent nausea, and lower appetite. No fevers. Using a cane. + weakness. No blood in his stool. No vomiting. Rarely needs the oxycodone for pain. Lost 60 lbs since diagnosisof pancreatic cancer on 05/30/2023 PHM: Patient Active Problem List Diagnosis Code Hypertension [...] Arteriosclerosis of coronary artery I25.10 Anxiety F41.9 Type 2 diabetes mellitus, without long-term current use of insulin (HCC) E11.9 Pancreatic mass K86.89 Transaminitis R74.01 Hyperbilirubinemia E80.6 Obstructive jaundice K83.1 Malnutrition of moderate degree (HCC) E44.0 Gastric outlet obstruction K31.1 Pancreatic cancer metastasized to liver (HCC) C25.9, C78.7 FHx: pancreatic cancer Z80.0 Encounter for antineoplastic chemotherapy Z51.11 Current Outpatient Medications Medication Sig Dispense Refill [...] 1 Capsule by mouth in the morning. oxyCODONE HCl 5 MG Oral Tablet (Oxy [...] split orchew the tablet. 60 Tablet 5 BOTOX 100 units injection every 12 weeks. (Patient not taking: Reported on 08/02/2023) Ondansetron HCl 8 MG Oral Tablet (Zofran) [...] taking: Reported on 07/07/2023) 30 g 1 No current facility-administered medications for this visit. Review of patient's allergies indicates: No Known Allergies Objective: BP 132/60 | Pulse 79 | Temp 36.2 C (97.1 F) (Temporal Artery) | Resp 18 | Ht 1.778 m (5' 10") |Wt 79.3 kg (174 lb 12.8 oz) | SpO2 98% | BMI 25.08 kg/m | BSA 1.98 m Physical Exam: General: alert and pale, thin Heart: regular rate & rhythm, no murmur, and no gallops Lungs: chest symmetric with normal AP diameter, no chest deformities noted, no chest wall tenderness, lungs clear to auscultation Abdomen: abdomen soft, non-tender, normal bowel sounds, and no masses or organomegaly Extremities: no edema, brace Left leg, and clenched hand on left ASSESSMENT/PLAN: Pancreatic cancer metastasized to liver (HCC) (Primary) Left hemiplegia (HCC) Primary hypertension Type 2 diabetes mellitus with hemoglobin A1c goal of less than 7.5% (HCC) - HEMOGLOBIN A1C; Future; Expected date: 08/22/2023 Follow Up: Return in about 6 months (around 02/21/2024). Follow Up: Return in about 6 months (around 02/21/2024). Mary Calderón DO documented in this encounter Nursing Notes * Indigo Gastelum LPN - 08/21/2023 10:48 AM EDT The patient has been properly identified by confirmation of name and date of . Chief Complaint Patient presents with Status Check Return in 6 months documented in this encounter Plan of Treatment Upcoming Encounters Date Type Department Care Team (Late st Contact Info) Description 08/25/2023 12:40 PM EDT Laboratory Laboratory [facility] [place] [address] [phone] Grace Reynoso [address] [place] [address] 08/25/2023 1:45 PM EDT Hem/Onc Treatment Hematology/Oncology Treatment, [place] [address] [facility] [place] [phone] 08/30/2023 9:00 AM EDT Scheduled Telephone Palliative Medicine, [facility] [address] [facility] 5th Floor [place] [address] [place], [facility] [address] 08/30/2023 11:15 AM EDT Office Visit Hematology/[facility] [place] [address] [phone] Ryne Acharya MD [address] [place] [address] 09/08/2023 8:30 AM EDT Laboratory Laboratory [facility] [place] [address] [place] [phone] [place] [facility] [address] [place] [address] 09/08/2023 9:30 AM EDT Hem/Onc Treatment Hematology/Oncology Treatment, [place] [address] [facility] [place] [phone] [place], Chair [address] Hem On[address] [facility] [address] [place] [place] [address] 09/13/2023 1:00 PM EDT Office Visit Gastroenterology, [facility] [address] [facility] [place] [address] Kacey Cárdenas CRNP [address] [place] [address] 09/15/2023 10:30 AM EDT Laboratory Laboratory [facility] [address] [place] [phone] [place], Lab [address]en[address] [address] 09/15/2023 11:00 AM EDT Office Visit Hematology/Oncology [facility] [address] [place] [phone] aHnnah Guillory CRNP [address] [facility] [place] [address] 09/15/2023 11:30 AM EDT [facility] [address] [facility], [place] [phone] [place], Chair 7 Hem On[address] [facility] [address] [facility] [place], [place] [address] 02/22/2024 11:50 AM EDT Office Visit [address] [phone] Mary Calderón, [address], [place] [phone] Scheduled Orders Name Type Priority Associated Diagnoses Orde r Schedule HEMOGLOBIN A1C Lab Routine Type 2 diabetes mellitus with hemoglobin A1c goal of less than 7.5% (HCC) Expected: 08/22/2023, Expires: 12/06/2023 Scheduled Procedures Name Priority Associated Diagnoses Date/Ti [...] this encounter Medical Devices Implanted Type Area Car Pusher Device Identifier Shelf Expiration Date Model / Serial / Lot Port 8fr 1lumen Infusion St Latexfree Power Implantable - [id number] Implanted:Qty: 1 on 07/07/2023 by Acosta Mathur MD at OR [facility] Left: Chest CR BARD : PERIPHERAL VASCULAR [id number] 05/04/2024 [id number] / / [id number] Stent Axios [id number] - [id number] Implanted:Qty: 1 on 08/11/2023 by Jayashree Alston MD at OR [facility] [employer] : ENDOSCOPY [id number] 06/19/2025 [id number] / / [id number] Stent Biliary Adult L30mm Dia1 - [id number] Implanted:Qty: 1 on 08/11/2023 by Jayashree Alston MD at OR [facility] BIBI : SANDRA MTZ [id number] 06/21/2026 [id number] / / [id number] documented as of this encounter Visit Diagnoses Diagnosis Pancreatic cancer metastasized to liver (HCC)- Primary Malignant neoplasm of pancreas, part unspecified Left hemiplegia (HCC) Hemiplegia, unspecified, affecting unspecified side Primary hypertension Unspecified essential hypertension Type 2 diabetes mellitus with hemoglobin A1c goal of less than 7.5% (HCC) documented in this encounter Advance Directives Documents on File Type Date Recorded Patient Nursing Care Partner Expl 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 Question Answer Comments Discussion of Advance Directives occurred with: Patient Care Teams City Collector Relationship Specialty Start Date End Date Lenora Harding MD [address] [facility] [place] [address] PCP - General Family Medicine 12/31/21 documented as of this encounter
--- OUTSIDE RECORDS SUMMARY | 2023-09-17 15:09 | External Medical Summary | Summary of Care ---
Author Name Unknown Organization [facility] Address [address] [place] [address] Phone [phone] Care Team Providers Care Numerical Control Machine Tool Operator Name Role Phone Lenora Harding MD Primary Care Provid er Reason for Visit * Reason Comments Chemotherapy Abraxane/Gemzar * Episode Based Medications (Routine) - Authorized Specialty Diagnoses / Procedures Referred By Contjoseline t Referred To Contact Diagnoses Encounter for antineoplastic chemotherapy Pancreatic cancer metastasized to liver (HCC) Procedures [place] PACLITAXEL PROTEIN BOUND [place] IN GEMCITABINE HCL NOS 200MG Ryne Acharya MD [address] [place] [address] [place] [address] Anc Hem/Onc [facility] [place] [address] [place] [phone] Referral ID Status Reason Start Date Expiration Date V isits Requested Visits Authorized [id number] Authorized 06/27/2023 12/26/2023 999 99 Encounter Details Date Type Department Care Team (Latest Contact Info) Description 07/25/2023 2:30 PM EST Hem/Onc Treatment Hematology/Oncolog y Treatment, [address] [address] [place], Chair 6 Hem Onc [address] [place] [address] Encounter for antineoplastic chemotherapy*; Pancreatic cancer metastasized to liver (HCC) Allergies No known active allergiesdocumented as of this encounter (statuses as of 08/22/2023) Medications Medication Sig Dispensed Refills Start Date [...] as directed. 100 Each 0 07/25/2023 Active Tresiba FlexTouch 100 UNIT/ML Subcutaneous Solution Pen-injector (Insulin Degludec)Indications :Pancreatic cancer metastasized to liver (HCC),Type 2 diabetes mellitus with hyperglycemia, without long-term current use of insulin (HCC) Inject 10 Units under the skin in the morning. 3 mL 3 07/14/2023 08/21/19 24 Discontinu ed(Crissy rousseau) documented as of this encounter (statuses as of 08/22/2023) Active Problems Problem Noted Date Diagnosed Date [...] as of this encounter (statuses as of 08/22/2023) Resolved Problems Problem Noted Date Diagnosed Date [...] as of this encounter (statuses as of 08/22/2023) Immunizations Name Administration Dates Next Due Pneumococcal Conjugate Vacci ne, 20-valent ([id number]) 06/03/2023(Deferred: Patient Refused) Seasonal Influenza, PF, 6 [...] Sign Reading Time Taken Comments Blood Pressure 135/72 07/25/2023 2:17 PM EST Pulse 80 07/25/2023 2:17 PM EST Temperature 36.9 C (98.4 F) 07/25/2023 2:17 PM ES T Respiratory Rate 16 07/25/2023 2:17 PM EST Oxygen Saturation - - Inhaled Oxygen Concentration - - Weight 85.7 kg (189 lb) 07/25/2023 2:17 PM EST Height - - Body Mass Index 27.12 05/30/2023 9:33 PM EST documented in this encounter Progress Notes * Keegan Lopez RN - 07/25/2023 2:01 PM EST Pt infusions completed without issues. Pt denies any current symptoms. Port flushed with NSS/Heparin per orders. Pt left treatment room via wheelchair in stable condition. Pt is aware that he does not need to come next week for his provider appointment/treatment. He is aware that his next infusion will be 3/5 with labs prior and provider visit. Goals: Patient will remain free from injury. Possible barriers to meeting goals: Infusion held last week, IV line Stability of the patient: Moderately stable - low risk of patient condition declining or worsening Summary regarding today's goals: Met: Pt remained free from injury. documented in this encounter Nursing Notes * Keegan Lopez, MAMTA - 07/25/2023 3:15 PM EST Chair 1. Pt VAD accessed without issues, positive for blood return. Pt denies any symptoms at this time. Fluids infusing per orders. Safety and Risk for Injury Patient will remain free from injury. Ensure appropriate safety devices are available. Provide and maintain safe environment. Functional status at today's visit: Ambulatory and [...] symptoms or adverse side effects during treatment. Chemo agents Abraxane/Gemzar Appetite normal Nausea/Vomiting none Diarrhea none Constipation none Mucositis none Fatigue minor Bleeding none Infection none Rash none Numbness tingling none Pain none Radiation none ABN Labs Labs reviewed with Dr. Acharya Alt in [place]: none Return in 2 weeks * Yelena Marie RN - 07/25/2023 2:18 PM EST Labs reviewed with Dr. Acharya; okay to proceed with treatment today. documented in this encounter Plan of Treatment Upcoming Encounters Date Type Department Care Team (Late st Contact Info) Description 08/25/2023 12:40 PM EDT Laboratory Laboratory [facility] [place] 200 [facility] [place] [address] [place] [address] [place] [address] 08/25/2023 1:45 PM EDT Hem/Onc Treatment Hematology/Oncology Treatment, [place] 200 [facility] [place] [address] 08/30/2023 9:00 AM EDT Scheduled Telephone Palliative Medicine, [facility] [address] [facility] 5th Floor [place] [address] [place], Nurse Palliative Medicine [facility] 5th [facility] [address] 08/30/2023 11:15 AM EDT Office Visit Hematology/Oncology [facility] [place] [address] [place] [phone] Ryne Acharya MD [address] [place], [place] [address] 09/08/2023 8:30 AM EDT Laboratory Laboratory [facility] [address] [place], [place] [phone] [place], Lab Scenery [address] [place], [place] [address] 09/08/2023 9:30 AM EDT [facility] 200 [facility], [place] [phone] [place], Chair 5 Hem Onc [facility] [address] [place], [place] [address] 09/13/2023 1:00 PM EDT Office Visit Gastroenterology, [facility] [address] Kacey C[facility]denas [facility]NP [facility] [address] 09/15/2023 10:30 AM EDT Laboratory Laboratory [facility] [address] [place], [place] [phone] [place], Lab Scenery 200 [facility] [place], [place] [address] 09/15/2023 11:00 AM EDT Office Visit Hematology/Oncology [facility] [address] [place], [place] [phone] Hannah Guillory CRNP [address] [facility] [place] [address] 09/15/2023 11:30 AM EDT Hem/Onc Treatment Hematology/Oncology Treatment, [place] 200 [facility], [place] [phone] [place], Chair 7 Hem Onc [address] [place], [place] [address] 02/22/2024 11:50 AM EDT Office Visit [facility] [address] [place] [address] Mary Calderón, [address] [place], [place] [phone] Scheduled Procedures Name Priority Associated Diagnoses Date/Ti [...] Ratio 05/11/2024 05/11/2023, 04/05 GFR 08/17/2024 08/18/2023, 03/0 09/2023, 07/25/2023, Additional history exists COLONOSCOPY-EVERY 5 YRS AGES 18-100 07/19/2027 07/19/2022, 07/19/2022, 04/12/2017, Additional history exists Zoster Vaccines Completed 03/16/2021, 09/11/2020 GARDASIL-HPV IMMUNIZATION SERIES Aged Out No longer eligible based on patient's age to complete this topic MENINGOCOCCAL (MENACTRA/MENVEO) Aged Out No longer eligible based on patient's age to complete this topic documented as of this encounter Medical Devices Implanted Type Area Mock Up Builder Device Identifier Shelf Expiration Date Model / Serial / Lot Port 8fr 1lumen Infusion [facility] Power Implantable - [id number] Implanted:Qty: 1 on 07/07/2023 by Acosta Mathur MD at OR [facility] Left: Chest CR BARD : PERIPHERAL VASCULAR [id number] 05/04/2024 [id number] / / [id number] documented as of this encounter Visit Diagnoses [...] weight), IV Piggyback, ONCE, 1 dose, On Mon07/25/23 at 1630, Administer over 30 Minutes Start Infusion 07/25/2023 3:27 PM EST 2,000 mg 500 mL/hr hEParin 100 UNIT/ML Lock Flush inj 500 Units 500 Units (5 mL), IV Lock, PRN Other, IV Flush, Starting on Mon07/25/23 at 1417, Until Mon07/25/23 at 2019, For 24 hours, Do not flush if lock, PICC, or central line not in place; IV infusing or unable to flush. Given 07/25/2023 4:03 PM EST 500 Units NSS infusion Intravenous, at 50 mL/hr, PRN, Starting on Mon07/25/23 at 1530, Until Mon07/25/23 at 2019, Maintenance line Start Infusion 07/25/2023 2:24 PM EST 50 mL/hr ondansetron (Zofran) tab 8 mg 8 mg, Oral, ONCE, On Mon07/25/23 at 1530, For 1 dose, Give 30 minutes prior to chemotherapy. Given 07/25/2023 2:34 PM EST 8 mg PACLitaxel protein-bound (Abraxane) inj 260 mg 260 mg (rounded from 256.25 mg = 125 mg/m2 2.05 m2 Treatment Plan BSA from Recorded weight), IV Piggyback, ONCE, 1 dose, On Mon07/25/23 at 1600, Administer over 30 Minutes, PROTECT FROM LIGHT Use Dedicated line Without Filter Start Infusion 07/25/2023 2:50 PM EST 260 mg 104 mL/hr sodium chloride 0.9 % flush central line 10 mL 10 mL, IV Push, PRN Other, IV Flush, Starting on Mon07/25/23 at 1417, Until Mon07/25/23 at 2019, For 24 hours, Do not flush if lock, PICC, or central line not in place; IV infusing or unable to flush. Given 07/25/2023 4:03 PM EST 10 mL documented in this encounter Advance Directives Documents on File Type Date Recorded Patient Meeting Specialist Expl 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 Question Answer Comments Discussion of Advance Directives occurred with: Patient Care Teams Numerical Control Machine Tool Operator Relationship Specialty Start Date End Date Lenora Harding MD [address] [place] [address] PCP - General Family Medicine 12/31/21 documented as of this encounter
--- OUTSIDE RECORDS SUMMARY | 2023-09-17 15:09 | External Medical Summary | Summary of Care ---
Author Name Unknown Organization [facility] Address [address] [place] [address] Phone [phone] Care Team Providers Care Binding Stitcher Name Role Phone Lenora Harding MD Primary Care Provid er Reason for Visit * Reason Comments Outpatient Testing Encounter Details Date Type Department Care Team (Late st Contact Info) Description 08/25/2023 12:40 PM EDT Laboratory Laboratory [facility] [address] [place] [phone] [place], Lab Scenery [address] [place], [place] [address] Pancreatic cancer metastasized to liver (HCC); Type 2 diabetes mellitus with hemoglobin A1c [...] Oral Tablet (Lopressor)Indication s:Coronary artery disease involving soboba heart, unspecified vessel or lesion type, unspecified [...] Next Due Pneumococcal Conjugate Vacci ne, 20-valent ([id number]) 06/03/2023(Deferred: Patient Refused) Seasonal Influenza, PF, 6 [...] Team (Late st Contact Info) Description 08/25/2023 1:45 PM EDT Hem/Onc Treatment Hematology/Oncology Treatment, [place] [address] [place] [address] Arrived 08/30/2023 9:00 AM EDT Scheduled Telephone Palliative Medicine, [facility] [address] [facility] 5th Floor [place] [address] [place], Nurse Palliative Medicine [facility] 5th [address] [facility] [place] [address] 08/30/2023 11:15 AM EDT Office Visit Hematology/Oncology [facility] [place] [address] [place] [phone] Ryne Acharya MD [address] [place] [address] 09/08/2023 8:30 AM EDT Laboratory Laboratory [facility] [place] [address] [place] [phone] [place] Lab Scenery [address] [place] [address] 09/08/2023 9:30 AM EDT Hem/Onc Treatment Hematology/Oncology Treatment, [place] [address] [place] [phone] [place], Chair 5 Hem Onc [facility] [address] [place] [address] [address] 09/13/2023 1:00 PM EDT Office Visit Gastroenterology, [facility] 132 [facility] [place] [address] Kacey Cárdenas CRNP [address] [place] [address] 09/15/2023 10:30 AM EDT Laboratory Laboratory [facility] [place] [address] [place] [phone] [place], Lab Scenery [address] [place] [address] [address] 09/15/2023 11:00 AM EDT Office Visit Hematology/Oncology [facility] 200 [facility] [place], [place] [address] Hannah Guillory CRNP 400 [facility] [place] [address] 09/15/2023 11:30 AM EDT Hem/Onc Treatment Hematology/Oncology Treatment, [place] 200 [facility] [address] [place], [place] [address] [place], Chair 7 Hem Onc [facility] 200 [facility] [place] [address] 02/22/2024 11:50 AM EDT Office Visit [place] [address] [place] [phone] Mary Calderón DO [address] [place], [place] [phone] Pending Results Name Type Priority Associated Diagnoses Date /Time CBC WITH WBC DIFFERENTIAL Lab STAT Pancreatic cancer metastasized to liver (HCC) 08/25/2023 12:48 PM EDT COMPREHENSIVE METABOLIC PANEL Lab STAT Pancreatic cancer metastasized to liver (HCC) 08/25/2023 12:48 PM EDT CBC Lab STAT Pancreatic cancer metastasized to liver (HCC) 08/25/2023 12:48 PM EDT DIFFERENTIAL, AUTOMATED Lab STAT Pancreatic cancer metastasized to liver (HCC) 08/25/2023 12:48 PM EDT HEMOGLOBIN A1C Lab Routine Type 2 diabetes mellitus with hemoglobin A1c goal of less than 7.5% (HCC) 08/25/2023 12:48 PM EDT DIFFERENTIAL, TECHNOLOGIST REVIEW Lab Routine Pancreatic cancer metastasized to liver (HCC) 08/25/2023 12:48 PM EDT Scheduled Procedures Name Priority Associated [...] this encounter Medical Devices Implanted Type Area Certified Industrial Hygienist Device Identifier Shelf Expiration Date Model / Serial / Lot Port 8fr 1lumen Infusion St [employer] Power Implantable - [id number] Implanted:Qty: 1 on 07/07/2023 by Acosta Mathur MD at OR [facility] Left: Chest CR BARD : PERIPHERAL VASCULAR [id number] 05/04/2024 [id number] / / [id number] Stent Axios 49gke44eg - [id number] Implanted:Qty: 1 on 08/11/2023 by Jayashree Alston MD at OR [facility] [employer] : ENDOSCOPY [id number] 06/19/2025 [id number] / / [id number] Stent Biliary Adult L30mm Dia1 - [id number] Implanted:Qty: 1 on 08/11/2023 by Jayashree Alston MD at OR [facility] BIBI : SANDRA MTZ [id number] 06/21/2026 [id number] / / [id number] documented as of this encounter Visit Diagnoses Diagnosis Pancreatic cancer metastasized to liver (HCC) Malignant neoplasm of pancreas, part unspecified Type 2 diabetes mellitus with hemoglobin A1c goal of less than 7.5% (HCC) documented in this encounter Advance Directives Documents on File Type Date Recorded Patient Ground Wirer Expl 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 Question Answer Comments Discussion of Advance Directives occurred with: Patient Care Teams Binding Stitcher Relationship Specialty Start Date End Date Lenora Harding MD [address] [place] [address] PCP - General Family Medicine 12/31/21 documented as of this encounter
--- OUTSIDE RECORDS SUMMARY | 2023-09-17 15:09 | External Medical Summary | Summary of Care ---
Author Name Unknown Organization [facility] Address [address] [place] [address] Phone [phone] Care Team Providers Care Drawer Upfitter Name Role Phone Lenora Harding MD Primary Care Provid er Reason for Visit * Reason Comments Chemotherapy Abraxane/Gemzar * Episode Based Medications (Routine) - Authorized Specialty Diagnoses / Procedures Referred By Contjoseline t Referred To Contact Diagnoses Encounter for antineoplastic chemotherapy Pancreatic cancer metastasized to liver (HCC) Procedures [place] PACLITAXEL PROTEIN BOUND [place] IN GEMCITABINE HCL NOS 200MG Ryne Acharya MD [address] [place] [address] [place] [address] Anc Hem/Onc [facility] [place] [address] [place] [phone] Referral ID Status Reason Start Date Expiration Date V isits Requested Visits Authorized [id number] Authorized 06/27/2023 12/26/2023 999 99 Encounter Details Date Type Department Care Team (Latest Contact Info) Description 07/25/2023 2:30 PM EST Hem/Onc Treatment Hematology/Oncolog y Treatment, [address] [address] [place], Chair 6 Hem Onc [address] [place] [address] Encounter for antineoplastic chemotherapy*; Pancreatic cancer metastasized [...] Next Due Pneumococcal Conjugate Vacci ne, 20-valent ([id number]) 06/03/2023(Deferred: Patient Refused) Seasonal Influenza, PF, 6 [...] Description 08/25/2023 12:40 PM EDT Laboratory Laboratory [facility] [place] 200 [facility] [place] [address] [place] [address] [place] [address] 08/25/2023 1:45 PM EDT Hem/Onc Treatment Hematology/Oncology Treatment, [place] 200 [facility] [place] [address] 08/30/2023 9:00 AM EDT Scheduled Telephone Palliative Medicine, [facility] 400 [facility] 5th Floor [place] [address] [place], Nurse Palliative Medicine [facility] 5th 400 [facility] [address] 08/30/2023 11:15 AM EDT Office Visit Hematology/Oncology [facility] [place] [address] [place] [phone] Ryne Acharya MD [address] [place], [place] [address] 09/08/2023 8:30 AM EDT Laboratory Laboratory [facility] [address] [place], [place] [phone] [place], Lab Scenery [address] [place], [place] [address] 09/08/2023 9:30 AM EDT [facility] 200 [facility], [place] [phone] [place], Chair 5 Hem Onc [facility] [address] [place], [place] [address] 09/13/2023 1:00 PM EDT Office Visit Gastroenterology, [facility] [address] Kacey C[facility]denas CRNP [facility] [address] 09/15/2023 10:30 AM EDT Laboratory Laboratory [facility] [address] [place], [place] [phone] [place], Lab Scenery 200 [facility] [place], [place] [address] 09/15/2023 11:00 AM EDT Office Visit Hematology/Oncology [facility] [address] [place], [place] [phone] Hannah Guillory CRNP 400 [facility] [place] [address] 09/15/2023 11:30 AM EDT Hem/Onc Treatment Hematology/Oncology Treatment, [place] 200 [facility], [place] [phone] [place], Chair 7 Hem Onc [address] [place], [place] [address] 02/22/2024 11:50 AM EDT Office Visit [facility] [address] [place] [address] Mary Calderón, [address] [place], [place] [phone] Scheduled Procedures Name Priority Associated Diagnoses Date/Ti [...] this encounter Medical Devices Implanted Type Area National Account Executive Device Identifier Shelf Expiration Date Model / Serial / Lot Port 8fr 1lumen Infusion [facility] Power Implantable - [id number] Implanted:Qty: 1 on 07/07/2023 by Acosta Mathur MD at OR [facility] Left: Chest CR BARD : PERIPHERAL VASCULAR [id number] 05/04/2024 [id number] / / [id number] documented as of this encounter Visit Diagnoses [...] Documents on File Type Date Recorded Patient Clinical Staff Educator Expl 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 Question Answer Comments Discussion of Advance Directives occurred with: Patient Care Teams Drawer Upfitter Relationship Specialty Start Date End Date Lenora Harding MD [address] [place] [address] PCP - General Family Medicine 12/31/21 documented as of this encounter
--- OUTSIDE RECORDS SUMMARY | 2023-09-17 15:09 | External Medical Summary ---
Author Name Unknown Address Unknown Organization [facility] [place] [address] Laboratory Report Ordering Provider Test Date Status GINNY PATEL 08/18/2023 12:45:09 Final Observation Date Value Abnormality Reference (Units ) Status WBC, Total 08/18/2023 12:45:09 10.44 4.00-10.8 0 (K/uL) Final RBC 08/18/2023 12:45:09 3.90 4.50-5.25 (M/uL) Final Hemoglobin 08/18/2023 12:45:09 10.8 Below low normal 14 .0-16.8 (g/dL) Final HCT 08/18/2023 12:45:09 33.8 Below low normal 40. 0-48.4 (%) Final MCV 08/18/2023 12:45:09 86.7 82.0-99.5 (fL) Final MCH 08/18/2023 12:45:09 27.7 27.0-34.0 (pg) Final MCHC 08/18/2023 12:45:09 32.0 32.0-36.0 (g/dL) Final RDW 08/18/2023 12:45:09 14.1 11.5-15.5 (%) Final Platelets 08/18/2023 12:45:09 442 Above high normal 14 0-400 (K/uL) Final MPV 08/18/2023 12:45:09 9.3 6.6-11.1 ( fL) Final Performing Location [facility] [place] [address]
--- OUTSIDE RECORDS SUMMARY | 2023-09-17 15:09 | External Medical Summary ---
Author Name Unknown Address Unknown Organization [facility] [address] [place] [address] Laboratory Report Ordering Provider Test Date Status GINNY PATEL 08/18/2023 12:45:09 Final Observation Date Value Abnormality Reference (Units ) Status BUN 08/18/2023 12:45:09 17 6-20 (mg/dL) Final Creatinine 08/18/2023 12:45:09 0.8 0.6-1.2 (mg/dL) Final Glomerular filtration rate/1.73 sq M.predicted [Volume Rate/Area] in Serum, Plasma or Blood by Creatinine-based formula (CKD-EPI) 08/18/2023 12:45:09 >90 >=60 (mL/min) Final eGFR is calculated based on the CKD-EPI 2020 equation SODIUM 08/18/2023 12:45:09 138 135-146 (m mol/L) Final Potassium 08/18/2023 12:45:09 4.4 3.5-5.1 (m mol/L) Final Cl 08/18/2023 12:45:09 104 98-107 (mm ol/L) Final CO2 08/18/2023 12:45:09 23 22-32 (mmo l/L) Final Anion gap 08/18/2023 12:45:09 11 7-15 (mmol /L) Final Glucose 08/18/2023 12:45:09 211 Above high normal 70 -120 (mg/dL) Final Albumin 08/18/2023 12:45:09 3.6 Below low normal 3.8 -5.0 (g/dL) Final AST (Aspartate aminotransferase) 08/18/2023 12:45:09 23 10-50 (U/L) Fin al Alk Phos 08/18/2023 12:45:09 210 Above high normal 35 -130 (U/L) Final Bilirubin, Total 08/18/2023 12:45:09 0.5 <=1 .2 (mg/dL) Final Calcium 08/18/2023 12:45:09 9.7 8.4-10.2 ( mg/dL) Final Protein 08/18/2023 12:45:09 6.6 6.0-8.3 (g /dL) Final ALT (Alanine aminotransferase) 08/18/2023 12:45:09 21 10-50 (U/L) Paramjit mendez Performing Location [facility] [place] [address]
--- OUTSIDE RECORDS SUMMARY | 2023-09-17 15:09 | External Medical Summary ---
Author Name Unknown Address Unknown Organization [facility] [address] [place] [address] Laboratory Report Ordering Provider Test Date Status GINNY PATEL 08/25/2023 12:48:22 Final Observation Date Value Abnormality Reference (Units ) Status BUN 08/25/2023 12:48:22 12 6-20 (mg/dL) Final Creatinine 08/25/2023 12:48:22 0.9 0.6-1.2 (mg/dL) Final Glomerular filtration rate/1.73 sq M.predicted [Volume Rate/Area] in Serum, Plasma or Blood by Creatinine-based formula (CKD-EPI) 08/25/2023 12:48:22 >90 >=60 (mL/min) Final eGFR is calculated based on the CKD-EPI 2020 equation Sodium 08/25/2023 12:48:22 137 135-146 (m mol/L) Final Potassium 08/25/2023 12:48:22 4.2 3.5-5.1 (m mol/L) Final Cl 08/25/2023 12:48:22 102 98-107 (mm ol/L) Final CO2 08/25/2023 12:48:22 25 22-32 (mmo l/L) Final Anion gap 08/25/2023 12:48:22 10 7-15 (mmol /L) Final Glucose 08/25/2023 12:48:22 220 Above high normal 70 -120 (mg/dL) Final Albumin 08/25/2023 12:48:22 3.6 Below low normal 3.8 -5.0 (g/dL) Final AST (Aspartate aminotransferase) 08/25/2023 12:48:22 52 Above high normal 10-50 (U/L) Final Alk Phos 08/25/2023 12:48:22 187 Above high normal 35 -130 (U/L) Final Bilirubin, Total 08/25/2023 12:48:22 0.6 <=1 .2 (mg/dL) Final Calcium 08/25/2023 12:48:22 9.4 8.4-10.2 ( mg/dL) Final Protein 08/25/2023 12:48:22 7.3 6.0-8.3 (g /dL) Final ALT (Alanine aminotransferase) 08/25/2023 12:48:22 55 Above high normal 10-50 (U/L) Final Performing Location [facility] [address] [place] [address]
--- OUTSIDE RECORDS SUMMARY | 2023-09-17 15:09 | External Medical Summary ---
Author Name Unknown Address Unknown Organization K09[facility] [place] [address] Laboratory Report Ordering Provider Test Date Status GINNY PATEL 08/25/2023 12:48:22 Final Observation Date Value Abnormality Reference (Units ) Status Nucleated erythrocytes/100 leukocytes [Ratio] in Blood by Automated count 08/25/2023 12:48:22 Final Performing Location [facility] [place] [address]
--- OUTSIDE RECORDS SUMMARY | 2023-09-17 15:10 | External Medical Summary | Summary of Care ---
Author Name Unknown Organization [facility] Address [address] [facility] [place] [address] Phone [phone] Care Team Providers Care Forming Department End Finder Name Role Phone Lenora Harding MD Primary Care Provid er Reason for Visit * Reason Comments Chemotherapy Chemo/recheck Encounter Details Date Type Department Care Team (Late st Contact Info) Description 08/07/2023 8:00 AM EST Office Visit Hematology/Oncology [facility] [place] [address] [place] [address] Hannah Guillory CRNP [address] [place] [address] Pancreatic cancer metastasized to liver (HCC)*; Encounter for antineoplastic chemotherapy Allergies No known active allergiesdocumented as of this encounter (statuses as of 08/09/2023) Medications Medication Sig Dispensed Refills Start Date [...] hemoglobin A1c goal of less than 7.0% ([facility]) Take 1 Tablet by mouth in the morning and 1 Tablet before bedtime. 180 Tablet 3 04/29/2023 Active Additional Information Patient not taking.Reported on 08/03/2023 Baclofen 10 MG Oral Tablet (Lioresal)Indications :Left [...] Oral Tablet (Lopressor)Indication s:Coronary artery disease involving [place] heart, unspecified vessel or lesion type, unspecified [...] as of this encounter (statuses as of 08/09/2023) Active Problems Problem Noted Date Diagnosed Date [...] as of this encounter (statuses as of 08/09/2023) Resolved Problems Problem Noted Date Diagnosed Date [...] as of this encounter (statuses as of 08/09/2023) Immunizations Name Administration Dates Next Due Pneumococcal Conjugate Vacci ne, 20-valent ([id number]) 06/03/2023(Deferred: Patient Refused) Seasonal Influenza, PF, 6 [...] Sign Reading Time Taken Comments Blood Pressure 165/84 08/07/2023 8:04 AM EST Pulse 89 08/07/2023 8:04 AM EST Temperature 36.7 C (98.1 F) 08/07/2023 8:04 AM ES T Respiratory Rate 16 08/07/2023 8:04 AM EST Oxygen Saturation 94% 08/07/2023 8:04 AM EST Inhaled Oxygen Concentration - - Weight 84.6 kg (186 lb 6.4 oz) 08/07/2023 8:04 A M EST Height 177.8 cm (5' 10") 08/07/2023 8:04 AM EST Body Mass Index 26.75 08/07/2023 8:04 AM EST documented in this encounter Progress Notes * Hannah Guillory CRNP - 08/07/2023 8:00 AM EST Hematology/Oncology Outpatient Clinic note [facility] [address] [place] [address] Name: Demar Ocampo Date: 08/06/2023 CHIEF COMPLAINT: Demar Ocampo is a 58 year old male here today for f/u visit today. Patient of Dr. Ryne Acharya. From Patient chart confirmed with patient. From Dr. Ryne Acharya note 06/22/23. HEMATOLOGY/ONCOLOGY DIAGNOSIS: Pancreatic head adenocarcinoma -liver metastasis. [...] nausea and so he was admitted at [facility]. Further workup as follows: Subsequently was transferred to [facility]. - total bilirubin level of 5.4, AST [...] had left-sided hemiplegia, he was transferred at [facility], has persistent neurological weakness, found to have [...] diagnosis. Interval History: Patient was admitted to [facility] 07/28/23 - 07/31/23 with acute cholecystitis. Presented with left sided abdominal pain, nausea and vomiting. Treated with IV antibiotics. Discharged on Augmentin x 10 days.Patient required 2 units PRBCs during admission. HISTORY OF PRESENT ILLNESS: Demar Ocampo is a 58 year old male with a history as outlined above. Currently here for f/u visittoday and consideration for C2D1 of treatment. Has not noticed that his blood sugars have changed much during treatment. Denies mouth sores or pain, nausea/vomiting, numbness/tingling. Bowels are moving normally. Was in the hospital last week d/t acute cholecystitis. Continues on oral antibiotics cu rrently. Received 2 units of PRBCs during admission. Denies melena or hematochezia. Denies any current abdominal pain. Feels that he is eating well and has a good appetite. Past Medical History: Diagnosis Date Allergic rhinitis [...] performed by Jayashree Alston MD at ENDOSCOPY [facility] COLONOSCOPY, DIAGNOSTIC (RECTUM) 07/19/2022 non-bleeding internal hemorrhoids / no specimens collected / 5 year recall / COLONOSCOPY FLEXIBLE PROXIMAL DIAGNOSTIC performed by Jayashree Alston MD at ENDOSCOPY [facility] EGD, W/ENDOSCOPIC US N/A 05/31/2023 ESOPHAGOGASTRODUODENOSCOPY (EGD), FLEXIBLE, TRANSORAL, ENDOSCOPIC ULTRASOUND performed by Demar Aparicio MD at ENDOSCOPY [facility] ERCP, DIAGNOSTIC, SPECIMEN COLLECTION N/A 06/02/2023 ENDOSCOPIC RETROGRADE CHOLANGIOPANCREATOGRAPHY (ERCP) DIAGNOSTIC performed by Demar Aparicio MD atENDOSCOPY [facility] INSER TUNN ACC DEV;5 YRS/OLDER Left 07/07/2023 INSERT TUNNELED CENTRAL VENOUS ACCESS WITH SUBQ PORT performed by Acosta Mathur MD at OR [facility] REMOVE TONSILS & ADENOIDS, UNDER 12 age 11 THROMBOENDARECTOMY W/PATCH,NECK INCISION Right 11/03/2016 Right CEA for symptomatic disease. 11/03/16. Dr. Cyrus Perez. 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 (Patient not taking: Reported on 08/03/2023) 180 Tablet 3 Baclofen 10 MG Oral [...] needed for Pain, Severe. 30 Tablet 0 Tresiba FlexTouch 100 UNIT/ML Subcutaneous Solution Pen-injector (Insulin Degludec) Inject 10 Unitsunder the skin in the morning. 3 mL 3 Lantus SoloStar 100 UNIT/ML Subcutaneous Solution Pen-injector Inject 8 Units under the skin in themorning. 15 mL 0 BD Pen Needle Stefanie 2nd Gen 32G X 4 MM (Insulin Pen Needle) Use to inject insulin daily as directed.100 Each 0 Metoprolol Tartrate 50 MG Oral Tablet (Lopressor) Take 1 Tablet by mouth in the morning. 90 Tablet 1 glipiZIDE ER 2.5 MG Oral Tablet Extended Release 24 Hour (glipiZIDE XL) Take 1 Tablet by mouth in the morning. 30 minutes before a meal.. (Patient not taking: Reported on 08/03/2023) 90 Tablet 3 Pantoprazole Sodium 40 MG Oral Tablet Delayed Release (Protonix) Take 1 Tablet by mouth in the morning and 1 Tablet before bedtime. 30 minutes before the first meal of the day. Do not crush, split orchew the tablet. 60 Tablet 5 No current facility-administered medications for this visit. REVIEW OF SYSTEMS: See HPI - otherwise negative OBJECTIVE: Filed Vitals: 08/07/23 0804 BP: 165/84 Pulse: 89 Resp: 16 Temp: 36.7 C (98.1 F) TempSrc: Tympanic SpO2: 94% Weight: 84.6 kg (186 lb 6.4 oz) Height: 1.778 m (5' 10") Wt Readings from Last 5 Encounters: 08/07/23 84.6 kg (186 lb 6.4 oz) 08/03/23 85.3 kg (188 lb) 08/02/23 87.1 kg (192 lb) 07/25/23 85.7 kg (189 lb) 07/10/23 83.5 kg (184 lb) PHYSICAL EXAM: ECOG: Performance Status 3 = [...] 4, left hemiparesis, in wheelchair today LABS: Results for orders placed or performed in visit on 08/07/23 COMPREHENSIVE METABOLIC PANEL Result Value Ref Range BUN 9 6 - 20 mg/dL Creatinine 0.9 0.6 - 1.2 mg/dL Estimated Glomerular Filtration Rate >90 >=60 mL/min Sodium 138 135 - 146 mmol/L Potassium 3.6 3.5 - 5.1 mmol/L Chloride 102 98 - 107 mmol/L CO2 26 22 - 32 mmol/L Anion Gap 10 7 - 15 mmol/L Glucose 189 (H) 70 - 120 mg/dL Albumin 3.4 (L) 3.8 - 5.0 g/dL AST 75 (H) 10 - 50 U/L Alkaline Phosphatase 321 (H) 35 - 130 U/L Bilirubin, Total 0.8 <=1.2 mg/dL Calcium 9.3 8.4 - 10.2 mg/dL Protein 6.7 6.0 - 8.3 g/dL ALT 71 (H) 10 - 50 U/L CBC Result Value Ref Range WBC 6.53 4.00 - 10.80 K/uL RBC 3.57 4.50 - 5.25 M/uL HGB 10.0 (L) 14.0 - 16.8 g/dL HCT 32.2 (L) 40.0 - 48.4 % MCV 90.2 82.0 - 99.5 fL MCH 28.0 27.0 - 34.0 pg MCHC 31.1 32.0 - 36.0 g/dL RDW 14.5 11.5 - 15.5 % PLT 281 140 - 400 K/uL MPV 8.5 6.6 - 11.1 fL DIFFERENTIAL, AUTOMATED Result Value Ref Range WBC 6.53 4.00 - 10.80 K/uL Neutrophils % 51.3 40.0 - 75.0 % Lymphocytes % 13.5 (L) 18.0 - 42.0 % Monocytes % 23.3 (H) 1.0 - 11.0 % Eosinophils % 11.3 (H) 0.0 - 6.0 % Basophils % 0.6 0.0 - 2.0 % Absolute Neutrophils 3.35 1.80 - 7.70 K/uL Absolute Lymphocytes 0.88 (L) 1.00 - 4.80 K/ul Absolute Monocytes 1.52 (H) 0.00 - 1.10 K/uL Absolute Eosinophils 0.74 (H) 0.00 - 0.70 K/uL Absolute Basophils 0.04 0.00 - 0.20 K/uL DIFFERENTIAL, TECHNOLOGIST REVIEW Result Value Ref Range nRBCs Reactive Lymphocytes Present (A) None Seen IMPRESSION/PLAN: Metastatic pancreatic adenocarcinoma Encounter for chemotherapy Patient was admitted to [facility] 07/28/23 - 07/31/23 with acute cholecystitis. Discharged on Augmentin x 10 days. Patient required 2 units PRBCs during admission. Scheduled for EUS guided GB drainage and Axios stent placement 08/11/23. Patient feeling clinically improved today. Denies abdominal pain or nausea. Lab results reviewed: LFTs trending upward with AST 75, ALT 71, alk phos 321 Hgb improved at 10 CA 19-9 pending - will follow Reviewed case with Dr. Ryne Acharya: will defer treatment x 1 week. Will plan for restaging scans s/p C3 RTC in four weeks with physician for chemo return CADEN Nava documented in this encounter Nursing Notes * Sydnie Bruce LPN - 08/07/2023 8:05 AM EST Patient identifed by name and birthdate Do you have any concerns about pain management for today's visit? No Living Will or Advance Directive for Health Care as noted on the problem list. [employer] is a way you can talk to your provider on line through e-mail. Would you like to sign up? I can activate it for you? ALREADY ACTIVE Filed Vitals: 08/07/23 0804 BP: 165/84 Pulse: 89 Resp: 16 Temp: 36.7 C (98.1 F) TempSrc: Tympanic SpO2: 94% Weight: 84.6 kg (186 lb 6.4 oz) Height: 1.778 m (5' 10") Patient was instructed to not get up [...] Department Care Team (Latest Contact Info) Description 4 2:00 PM EST Hospital Encounter OR [facility], Operating Room, [place] - 4th Floor [address] [place] [address] Jayashree Alston MD [address] [place] [address] 4 2:00 PM EST - 4 2:44 PM EST Surgery OR [facility], Operating Room, [place] - 4th Floor [address] [place] [address] Jayashree Alston MD [address] [place] [address] ESOPHAGOGASTRODUODENOSCOPY (EGD), FLEXIBLE, TRANSORAL, ENDOSCOPIC ULTRASOUND 4 12:40 PM EDT Laboratory Laboratory [facility] [place] [address] [place] [phone] [place], Lab Scen[address] [place] [address] 4 1:45 PM EDT Hem/Onc Treatment Hematology/Onco logy Treatment, [place] [address] [place] [phone] [place], Chair [address] [facility] [address] [place] [address] 4 10:50 AM EDT Office Visit [facility] [address] [place] [phone] Mary Calderón, [address] [place] [address] 4 9:00 AM EDT Scheduled Telephone Palliative Medicine, [facility] [address] [facility] 5th Floor [facility] [place] [address] [place], Nurse Palliative Medicine [facility] 5th [address] [place] [address] 4 11:15 AM EDT Office Visit Hematology/Onco logy [facility] [place] [address] [place] [phone] Ryne Acharya MD [address] [place] [address] 4 8:00 AM EDT Office Visit Gastroenterolog y, [facility] [place] [address] [facility] [place] [address] Kacey Cárdenas CRNP [address] [place] [address] Scheduled Procedures Name Priority Associated Diagnoses Date/Ti me ESOPHAGOGASTRODUODENOSCOPY ( EGD), FLEXIBLE, TRANSORAL, ENDOSCOPIC ULTRASOUND Cholecystitis Pancreatic cancer (HCC) 08/11/2023 2:00 PM EST COLONOSCOPY FLEXIBLE PROXIMA L DIAGNOSTIC Recall History of colon polyps Health [...] this encounter Medical Devices Implanted Type Area Manager Development Device Identifier Shelf Expiration Date Model / Serial / Lot Port 8fr 1lumen Infusion St Latexfree Power Implantable - [id number] Implanted:Qty: 1 on 07/07/2023 by Acosta Mathur MD at OR [facility] Left: Chest CR BARD : PERIPHERAL VASCULAR [id number] 05/04/2024 [id number] / / [id number] documented as of this encounter Visit Diagnoses Diagnosis Pancreatic cancer metastasized to liver (HCC)- Primary Malignant neoplasm of pancreas, part unspecified Encounter for antineoplastic chemotherapy Cholecystitis Cholecystitis, unspecified Pancreatic cancer (HCC) Malignant neoplasm of pancreas, part unspecified documented in this encounter Advance Directives Documents on File Type Date Recorded Patient 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 Question Answer Comments Discussion of Advance Directives occurred with: Patient Care Teams Forming Department End Finder Relationship Specialty Start Date End Date Lenora Harding MD [address] [place] [facility] [place] [address] PCP - General Family Medicine 12/31/21 documented as of this encounter
--- OUTSIDE RECORDS SUMMARY | 2023-09-17 15:10 | External Medical Summary | Summary of Care ---
Author Name Unknown Organization [facility] Address [address] [place] [address] Phone [phone] Care Team Providers Care Women'S Health Care Nurse Practitioner Name Role Phone Lenora Harding MD Primary Care Provid er Reason for Visit * Reason Onset Date Comments Pre Op Discussion 08/07/2023 Encounter Details Date Type Department Care Team (Late st Contact Info) Description 08/07/2023 Telephone ENDO [facility], Endoscopy [facility] [address] [place] [address] Jayashree Alston MD [address] [facility] [place] [address] Pre Op Discussion Allergies No known active allergiesdocumented as of this encounter (statuses as of 08/08/2023) Medications Medication Sig Dispensed Refills Start Date [...] Oral Tablet (Lopressor)Indication s:Coronary artery disease involving [place] heart, unspecified vessel or lesion type, unspecified [...] as of this encounter (statuses as of 08/08/2023) Active Problems Problem Noted Date Diagnosed Date [...] as of this encounter (statuses as of 08/08/2023) Resolved Problems Problem Noted Date Diagnosed Date [...] as of this encounter (statuses as of 08/08/2023) Immunizations Name Administration Dates Next Due Pneumococcal Conjugate Vacci ne, 20-valent ([id number]) 06/03/2023(Deferred: Patient Refused) Seasonal Influenza, PF, 6 [...] Telephone Encounter - Lenora Harding MD - 08/08/2023 8:14 AM EST Sending ask a doc to neuro. Staff messg sent to Dr. Christiansen (neurosurg) * Telephone Encounter - Sheri Michele RN - 08/07/2023 10:19 AM EST Demar is scheduled for a EGD/EUS Monday08/11/23. May he hold his Plavix until after his procedure. Your input is appreciated. documented in this encounter Plan of Treatment Upcoming Encounters Date Type Department Care Team (Latest Contact Info) Description 4 9:00 AM EST Office Visit General Surgery, [facility] [address] [place] [address] Kin Stubbs MD [address] [place] [address] 4 2:00 PM EST Hospital Encounter OR [facility], Operating Room, [facility] - 4th Floor [address] [place] [address] Jayashree Alston MD [address] [place] [address] 4 2:00 PM EST - 4 2:44 PM EST Surgery OR [facility], Operating Room, [facility] - 4th Floor [address] [facility] [place] [address] Jayashree Alston MD [address] [place] [address] ESOPHAGOGASTRODUODENOSCOPY (EGD), FLEXIBLE, TRANSORAL, ENDOSCOPIC ULTRASOUND 4 12:00 PM EDT Laboratory Laboratory [facility] [address] [place] [phone] [place], Lab Scenery [address] [place] [address] 4 1:00 PM EDT Hem/Onc Treatment Hematology/Onco logy Treatment, [place] [address] [place] [address] [place], Chair 5 Hem Onc Sc[address] [place] [address] 4 10:50 AM EDT Office Visit [facility] [address] [place] [phone] Mary Calderón, DO [address] [place] [address] 4 9:00 AM EDT Scheduled Telephone Palliative Medicine, [facility] [address] [facility] 5th Floor [place] [address] [place], Nurse Palliative Medicine [address] [facility] [place] [address] 4 8:00 AM EDT Office [facility] [address] [place] [address] Kacey Cádrenas CRNP [address] [place] [address] Scheduled Procedures Name Priority Associated Diagnoses Date/Ti [...] this encounter Medical Devices Implanted Type Area Rn Pain Management Device Identifier Shelf Expiration Date Model / Serial / Lot Port 8fr 1lumen Infusion St Latexfree Power Implantable - [id number] Implanted:Qty: 1 on 07/07/2023 by Acosta Mathur MD at OR [facility] Left: Chest CR BARD : PERIPHERAL VASCULAR [id number] 05/04/2024 [id number] / / [id number] documented as of this encounter Advance Directives Documents on File Type Date Recorded Patient Tombstone Setter Expl 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 Question Answer Comments Discussion of Advance Directives occurred with: Patient Care Teams Women'S Health Care Nurse Practitioner Relationship Specialty Start Date End Date Lenora Harding MD [address] [place] [address] PCP - General Family Medicine 12/31/21 documented as of this encounter
--- OUTSIDE RECORDS SUMMARY | 2023-09-17 15:10 | External Medical Summary | Summary of Care ---
Author Name Unknown Organization [facility] Address [address] [place] [facility] [place] [place] [address] Phone [phone] Care Team Providers Care Senior Data Mining Analyst Name Role Phone Lenora Harding MD Primary Care Provid er Encounter Details Date Type Department Care Team (Late st Contact Info) Description 08/02/2023 Orders Only [facility]ology/[facility] [place] [address] [facility] [place] [phone] Ryne Acharya MD [address] [facility] [place] [address] Allergies No known active allergiesdocumented as of this encounter (statuses as of 08/07/2023) Medications Medication Sig Dispensed Refills Start Date [...] hemoglobin A1c goal of less than 7.0% ([facility]) Take 1 Tablet by mouth [...] Oral Tablet (Lopressor)Indication s:Coronary artery disease involving kiana heart, unspecified vessel or lesion type, unspecified [...] Additional Information Patient not taking.Reported on 08/03/2023 documented as of this encounter (statuses as of 08/07/2023) Active Problems Problem Noted Date Diagnosed Date [...] as of this encounter (statuses as of 08/07/2023) Resolved Problems Problem Noted Date Diagnosed Date [...] as of this encounter (statuses as of 08/07/2023) Immunizations Name Administration Dates Next Due Pneumococcal Conjugate Vacci ne, 20-valent ([id number]) 06/03/2023(Deferred: Patient Refused) Seasonal Influenza, PF, 6 [...] 9:00 AM EST Office Visit General Surgery, [facility] [address] [place] [address] Kin Stubbs MD [address] [place] [address] 4 2:00 PM EST Hospital Encounter OR [facility], Operating Room, [facility] - 4th Floor [address] [place] [place] [address] Jayashree Alston MD [address] [place] [address] 4 2:00 PM EST - 4 2:44 PM EST Surgery OR [facility], Operating Room, [facility] - 4th Floor [address] [place] [place] [address] Jayashree Alston MD [address] [place] [address] ESOPHAGOGASTRODUODENOSCOPY (EGD), FLEXIBLE, TRANSORAL, ENDOSCOPIC ULTRASOUND 4 12:00 PM EDT Laboratory Laboratory [facility] [place] [address] [place] [phone] [place], Lab Scenery 200 Jazmin Greene [facility] [place] [address] 4 1:00 PM EDT Hem/Onc Treatment Hematology/Onco logy Treatment, [place] [address] [place] [phone] [place], Chair 5 Hem Onc Scenery 200 [place] [address] 4 10:50 AM EDT Office Visit Family Practice, [place] [address] [place] [facility] [place] [phone] Mary Calderón, [address] [place] [address] 4 9:00 AM EDT Scheduled Telephone Palliative Medicine, [facility] 400 [facility] 5th Floor [place] [address] [place], Nurse Palliative Medicine [facility] 5th 400 [place] [address] 4 8:00 AM EDT Office Visit Gastroenterolog y, [facility] [address] [place] [address] Kacey Cárdenas CRNP [address] [place] [address] Scheduled Procedures Name Priority Associated Diagnoses Date/Ti [...] this encounter Medical Devices Implanted Type Area Obiee Lead Developer Device Identifier Shelf Expiration Date Model / Serial / Lot Port 8fr 1lumen Infusion St Latexfree Power Implantable - [id number] Implanted:Qty: 1 on 07/07/2023 by Acosta Mathur MD at [facility] Left: Chest CR BARD : PERIPHERAL VASCULAR [id number] 05/04/2024 [id number] / / [id number] documented as of this encounter Advance Directives Documents on File Type Date Recorded Patient Microfilm Equipment Inspector Expl 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 Question Answer Comments Discussion of Advance Directives occurred with: Patient Care Teams Senior Data Mining Analyst Relationship Specialty Start Date End Date Lenora Harding MD [address] [facility] [place] [phone] PCP - General Family Medicine 12/31/21 documented as of this encounter
--- OUTSIDE RECORDS SUMMARY | 2023-09-17 15:10 | External Medical Summary | Summary of Care ---
Author Name Unknown Organization [facility] Address [address] [place] [address] Phone [phone] Care Team Providers Care Associate Pastor Name Role Phone Lenora Harding MD Primary Care Provid er Encounter Details Date Type Department Care Team (Late st Contact Info) Description 08/08/2023 Telephone Hematology/Oncology [facility] [place] [address] [place] [address] Hannah Guillory CRNP 400 [place] [address] Allergies No known active allergiesdocumented as of [...] hemoglobin A1c goal of less than 7.0% ([facility]) USE UP TO FOUR TIMES DAILY FOR BLOOD GLUCOSE TESTING 100 Strip 11 03/03/2023 Active metFORMIN HCl ER 500 MG Oral Tablet Extended Release 24 Hour (Glucophage XR)Indications:Type 2 diabetes mellitus with hemoglobin A1c goal of less than 7.0% ([facility]) Take 1 Tablet by mouth in [...] Oral Tablet (Lopressor)Indication s:Coronary artery disease involving ug[place] heart, unspecified vessel or lesion type, unspecified [...] Next Due Pneumococcal Conjugate Vacci ne, 20-valent ([id number]) 06/03/2023(Deferred: Patient Refused) Seasonal Influenza, PF, 6 [...] encounter Miscellaneous Notes * Telephone Encounter - Hannah Guillory CRNP - 08/08/2023 5:20 PM EST Patient scheduled for EUS Thursday 08/10. Currently scheduled for next chemo treatment 08/14. Reviewed with Dr. Acharya. Due to scheduled procedure on Thursday 08/10 please push back chemotherapy to Thursday 08/17 if possible. Patient also needs scheduled for PHYSICIAN follow up in four weeks. documented in this encounter Plan of Treatment Upcoming Encounters Date Type Department Care Team (Latest Contact Info) Description 4 2:00 PM EST Hospital Encounter OR [facility], Operating Room, [facility] - 4th Floor [address] [place] [address] Jayashree Alston MD [address] [place] [address] 4 2:00 PM EST - 4 2:44 PM EST Surgery OR [facility], Operating Room, [facility] - 4th Floor [address] [place] [address] Jayashree Alston MD [address] [place] [address] ESOPHAGOGASTRODUODENOSCOPY (EGD), FLEXIBLE, TRANSORAL, ENDOSCOPIC ULTRASOUND 4 12:40 PM EDT Laboratory Laboratory [place] Louise Reynoso [address] [place] [address] [place] Lab Scenery [address] [place] [address] 4 1:45 PM EDT Hem/Onc Treatment Hematology/Onco logy Treatment, [place] [address] [place] [phone] [place], Chair 8 Hem Onc Scenery [address] [place] [address] 4 10:50 AM EDT Office Visit Family [facility] [address] [facility], [place] [phone] Mary Calderón, [address] [place] [address] 4 9:00 AM EDT Scheduled Telephone Palliative Medicine, [facility] 400 [facility] 5th Floor [place] [address] [place], Nurse Palliative Medicine [facility] 5th 400 [facility] [address] 4 8:00 AM EDT Office Visit Gastroenterolog y, [facility] [address] [place] [address] Kacey Cárdenas CRNP [address] [place] [address] Scheduled Procedures Name Priority Associated Diagnoses Date/Ti [...] this encounter Medical Devices Implanted Type Area Prenatal Teacher Device Identifier Shelf Expiration Date Model / Serial / Lot Port 8fr 1lumen Infusion St Latexfree Power Implantable - [id number] Implanted:Qty: 1 on 07/07/2023 by Acosta Mathur MD at OR [facility] Left: Chest CR BARD : PERIPHERAL VASCULAR [id number] 05/04/2024 [id number] / / [id number] documented as of this encounter Advance Directives Documents on File Type Date Recorded Patient Manager Psychology Expl 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 Question Answer Comments Discussion of Advance Directives occurred with: Patient Care Teams Associate Pastor Relationship Specialty Start Date End Date Lenora Harding MD [address] [place] [address] PCP - General Family Medicine 12/31/21 documented as of this encounter
--- OUTSIDE RECORDS SUMMARY | 2023-09-17 15:10 | External Medical Summary | Summary of Care ---
Author Name Unknown Organization [facility] Address [address] [place] [address] Phone [phone] Care Team Providers Care Type Copy Examiner Name Role Phone Lenora Harding MD Primary Care Provid er Reason for Visit * Reason Onset Date Comments Pre Op Discussion 08/07/2023 Encounter Details Date Type Department Care Team (Late st Contact Info) Description 08/07/2023 Telephone ENDO [facility], Endoscopy [facility] [address] [place] [address] Jayashree Alston MD [address] [place] [address] Pre Op Discussion Allergies No [...] Next Due Pneumococcal Conjugate Vacci ne, 20-valent ([id number]) 06/03/2023(Deferred: Patient Refused) Seasonal Influenza, PF, 6 [...] Encounter - Lenora Harding MD - 08/08/2023 4:[address] Christiansen agrees - stop plavix, to resume after procedure completed. Continue aspirin. * Telephone Encounter - Lenora Harding MD [...] Department Care Team (Latest Contact Info) Description 2:00 PM EST Hospital Encounter OR [facility], Operating Room, [facility] - 4th Floor [address] [place] [address] Jayashree Alston MD 132 [facility] [place] [address] 4 2:00 PM EST - 4 2:44 PM EST Surgery OR [facility], Operating Room, [facility] - 4th Floor 400 [facility] [place] [address] Jayashree Alston MD [address] [place] [address] ESOPHAGOGASTRODUODENOSCOPY (EGD), FLEXIBLE, TRANSORAL, ENDOSCOPIC ULTRASOUND 4 12:00 PM EDT Laboratory Laboratory [facility] [place] [address] [place] [phone] [place], Lab Scenery 200 [facility] [place] [address] 4 1:00 PM EDT Hem/Onc Treatment Hematology/Onco logy Treatment, [place] [address] [place] [address] [place], Chair 5 Hem Onc Scenery [address] [place] [address] 4 10:50 AM EDT Office Visit [facility] [address] [place] [phone] Mary Calderón, DO [address] [place] [address] 4 9:00 AM EDT Scheduled Telephone Palliative Medicine, [facility] 400 [facility] 5th Floor [place] [address] [place], Nurse Palliative Medicine [address] 400 [facility] [place] [address] 4 8:00 AM EDT Office Visit Gastroenterolog y, [facility] [address] [place] [address] Kacey Cárdenas CRNP [address] [place] [address] Scheduled Procedures Name Priority Associated Diagnoses Date/Ti [...] this encounter Medical Devices Implanted Type Area Mate First Device Identifier Shelf Expiration Date Model / Serial / Lot Port 8fr 1lumen Infusion St Latexfree Power Implantable - [id number] Implanted:Qty: 1 on 07/07/2023 by Acosta Mathur MD at OR [facility] Left: Chest CR BARD : PERIPHERAL VASCULAR [id number] 05/04/2024 [id number] / / [id number] documented as of this encounter Advance Directives Documents on File Type Date Recorded Patient Rehabilitation Program Coordinator Expl 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 Question Answer Comments Discussion of Advance Directives occurred with: Patient Care Teams Type Copy Examiner Relationship Specialty Start Date End Date Lenora Harding MD [address] [place] [place] [address] PCP - General Family Medicine 12/31/21 documented as of this encounter
--- OUTSIDE RECORDS SUMMARY | 2023-09-17 15:10 | External Medical Summary | Summary of Care ---
Author Name Unknown Organization [facility] Address [address] [place] [facility] [place] [address] Phone [phone] Care Team Providers Care Programming Instructor Name Role Phone Lenora Harding MD Primary Care Provid er Encounter Details Date Type Department Care Team (Late st Contact Info) Description 08/08/2023 Telephone Hematology/Oncology [facility] [place] [address] [facility] [place] [address] Hannah Guillory CRNP 400 [place] [address] Allergies No known active allergiesdocumented [...] goal of less than 7.0% ([facility]) USE UP TO FOUR TIMES DAILY FOR BLOOD GLUCOSE TESTING 100 Strip 11 03/03/2023 Active metFORMIN HCl ER 500 MG Oral Tablet Extended Release 24 Hour (Glucophage XR)Indications:Type 2 diabetes mellitus with hemoglobin A1c goal of less than 7.0% ([facility]) Take 1 Tablet by mouth in [...] Oral Tablet (Lopressor)Indication s:Coronary artery disease involving wy[place] heart, unspecified vessel or lesion type, unspecified [...] Next Due Pneumococcal Conjugate Vacci ne, 20-valent ([id number]) 06/03/2023(Deferred: Patient Refused) Seasonal Influenza, PF, 6 [...] 4 2:00 PM EST Hospital Encounter OR [facility], Operating Room, [facility] - 4th Floor [address] [place] [address] Jayashree Alston MD [address] [place] [address] 4 2:00 PM EST - 4 2:44 PM EST Surgery OR [facility], Operating Room, [facility] - 4th Floor [address] [place] [address] [place] [address] Jayashree Alston MD [address] [place] [address] ESOPHAGOGASTRODUODENOSCOPY (EGD), FLEXIBLE, TRANSORAL, ENDOSCOPIC ULTRASOUND 4 12:00 PM EDT Laboratory Laboratory [place] Louise Reynoso [address] [place] [address] Grace Reynoso Scenery [address] [place] [address] 4 1:00 PM EDT Hem/Onc Treatment Hematology/Onco logy Treatment, [place] [address] [place] [address] [place], Chair 5 Hem Onc Scenery [address] [place] [address] 4 10:50 AM EDT Office Visit Family [facility] [address] [facility], [place] [phone] Mary Calderón, [address] [place] [address] 4 9:00 AM EDT Scheduled Telephone Palliative Medicine, [facility] 400 [facility] 5th Floor [place] [address] [place], Nurse Palliative Medicine [facility] 5th 400 [facility] [address] 4 8:00 AM EDT Office Visit Gastroenterolog y, [facility] [address] [place] [address] Kacey Cádrenas CRNP [address] [place] [address] Scheduled Procedures Name Priority Associated Diagnoses Date/Ti [...] this encounter Medical Devices Implanted Type Area Staff Antisubmarine Officer Device Identifier Shelf Expiration Date Model / Serial / Lot Port 8fr 1lumen Infusion St Latexfree Power Implantable - [id number] Implanted:Qty: 1 on 07/07/2023 by Acosta Mathur MD at OR [facility] Left: Chest CR BARD : PERIPHERAL VASCULAR [id number] 05/04/2024 [id number] / / [id number] documented as of this encounter Advance Directives Documents on File Type Date Recorded Patient Carbon Blocks Press Operator Expl 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 Question Answer Comments Discussion of Advance Directives occurred with: Patient Care Teams Programming Instructor Relationship Specialty Start Date End Date Lenora Harding MD [address] [place] [address] PCP - General Family Medicine 12/31/21 documented as of this encounter
--- OUTSIDE RECORDS SUMMARY | 2023-09-17 15:10 | External Medical Summary | Summary of Care ---
Author Name Unknown Organization [facility] Address [address] [facility] [place] [address] Phone [phone] Care Team Providers Care Real Estate Internship Name Role Phone Lenora Harding MD Primary Care Provid er Reason for Visit * Reason Comments Nurse Documentation Delay chemo Encounter Details Date Type Department Care Team (Late st Contact Info) Description 08/07/2023 8:30 AM EST Hem/Onc Treatment Hematology/Oncology Treatment, [place] [address] [place] [address] [place], Chair 7 Hem Onc Scenery [address] [place], [place] [phone] Arrived Allergies No known active allergiesdocumented as of [...] hemoglobin A1c goal of less than 7.0% ([facility]) USE UP TO FOUR TIMES DAILY FOR BLOOD GLUCOSE TESTING 100 Strip 11 03/03/2023 Active metFORMIN HCl ER 500 MG Oral Tablet Extended Release 24 Hour (Glucophage XR)Indications:Type 2 diabetes mellitus with hemoglobin A1c goal of less than 7.0% ([facility]) Take 1 Tablet by mouth in the [...] Oral Tablet (Lopressor)Indication s:Coronary artery disease involving nul[place] heart, unspecified vessel or lesion type, unspecified [...] Next Due Pneumococcal Conjugate Vacci ne, 20-valent ([id number]) 06/03/2023(Deferred: Patient Refused) Seasonal Influenza, PF, 6 [...] as of this encounter Nursing Notes * Yelena Marie RN - 08/07/2023 8:50 AM EST Per Hannah NEGRETE, delay treatment 1 week due to recent hospitalization and treatment for infection. documented in this encounter Plan of Treatment Upcoming Encounters Date Type Department Care Team (Latest Contact Info) Description 4 9:00 AM EST Office Visit General Surgery, [facility] [address] [address] Kin Stubbs MD [address] [place] [address] 4 2:00 PM EST Hospital Encounter OR [facility], Operating Room, [facility] - 4th Floor [address] [place] [address] Jayashree Alston MD [address] [place] [address] 4 2:00 PM EST - 4 2:44 PM EST Surgery OR [facility], Operating Room, [facility] - 4th Floor [address] [place] [address] Jayashree Alston MD [address] [place] [address] ESOPHAGOGASTRODUODENOSCOPY (EGD), FLEXIBLE, TRANSORAL, ENDOSCOPIC ULTRASOUND 4 12:00 PM EDT Laboratory Laboratory [facility] [address] [place], [place] [address] [place], Lab Scenery 200 [facility] [place], [place] [address] 4 1:00 PM EDT Hem/Onc Treatment Hematology/Onco logy Treatment, [place] [address] [place], [place] [address] [place], Chair 5 Hem Onc Scenery [address] [place] [address] 4 10:50 AM EDT Office Visit [facility] [address] [place] [phone] Mary Calderón, [address] [place] [address] 4 9:00 AM EDT Scheduled Telephone Palliative Medicine, [facility] 400 [facility] 5th [place] [address] [place], Nurse Palliative Medicine [facility] 5th 400 [place] [address] 4 8:00 AM EDT Office Visit Gastroenterolog y, [facility] 132 [facility] [place] [address] Kacey Cárdenas CRNP [address] [place] [address] Scheduled Procedures Name Priority Associated Diagnoses Date/Ti [...] this encounter Medical Devices Implanted Type Area Feed Mill Tender Device Identifier Shelf Expiration Date Model / Serial / Lot Port 8fr 1lumen Infusion St Latexfree Power Implantable - [id number] Implanted:Qty: 1 on 07/07/2023 by Acosta Mathur MD at OR [facility] Left: Chest CR BARD : PERIPHERAL VASCULAR [id number] 05/04/2024 [id number] / / [id number] documented as of this encounter Advance Directives Documents on File Type Date Recorded Patient Behavioral Health Associate Expl 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 Question Answer Comments Discussion of Advance Directives occurred with: Patient Care Teams Real Estate Internship Relationship Specialty Start Date End Date Lenora Harding MD [address] [place] [address] PCP - General Family Medicine 12/31/21 documented as of this encounter
--- OUTSIDE RECORDS SUMMARY | 2023-09-17 15:10 | External Medical Summary | Summary of Care ---
Author Name Unknown Organization [facility] Address [address] [place] [address] Phone [phone] Care Team Providers Care Mercury Washer Name Role Phone Lenora Harding MD Primary Care Provid er Reason for Visit * Reason Onset Date Comments Field Technical Specialist Documentation 08/08/2023 Encounter Details Date Type Department Care Team (Late st Contact Info) Description 08/08/2023 Telephone Hematology Oncology, [place] [address] [facility] [address] [place] [address] Art Ortiz, LUBNA Field Technical Specialist Documentation Allergies No known active allergiesdocumented as of [...] Oral Tablet (Lopressor)Indication s:Coronary artery disease involving [place] heart, unspecified vessel or lesion type, unspecified [...] Next Due Pneumococcal Conjugate Vacci ne, 20-valent ([id number]) 06/03/2023(Deferred: Patient Refused) Seasonal Influenza, PF, 6 [...] encounter Miscellaneous Notes * Telephone Encounter - Art Ortiz MSW - 08/08/2023 3:11 PM EST SW left a message for the patient's spouse with his contact information, office hours, and a summary of what assistance To[employer] offers to patients receiving treatment and care within [facility]. SW encouraged her to call back at her earliest convenience. Services provided include: Care Coordination Lianet/Financial Assistance Follow-up Calls and Visits Dexter Lindsey, LUBNA, CHIEF OPERATOR Fruit Buying Grader Hematology/Oncology [place] Office: [phone] [place] Office: [phone] E-mail: [email or web address] documented in this encounter Plan of Treatment Upcoming Encounters Date Type Department Care Team (Latest Contact Info) Description 4 2:00 PM EST Hospital Encounter [facility], Operating Room, [facility] - 4th Floor [address] [address] Jayashree Alston MD [address] [place] [address] 4 2:00 PM EST - 4 2:44 PM EST Surgery [facility], Operating Room, [facility] - 4th Floor [address] [place] [address] Jayahsree Alston MD [address] [place] [address] ESOPHAGOGASTRODUODENOSCOPY (EGD), FLEXIBLE, TRANSORAL, ENDOSCOPIC ULTRASOUND 4 12:00 PM EDT Laboratory Laboratory [facility] [place] [address] [place], [place] [address] [place], Lab Scene [address] [facility] [place], [place] [address] 4 1:00 PM EDT Hem/Onc Treatment Hematology/Onco logy Treatment, [place] [address] [place], [place] [address] [place], Chair 5 Hem Onc [address]en[address] [place] [address] 4 10:50 AM EDT Office Visit [place] [address] [place] [phone] Mary Calderón, [address] [place] [address] 4 9:00 AM EDT Scheduled Telephone Palliative Medicine, [facility] [place] [address] [facility] 5th [place] [address] [place], Nurse Palliative Medicine [facility] 5th [address] [place] [address] 4 8:00 AM EDT Office Visit Gastroenterolog y, [facility] [address] [facility] [place] [address] Kacey Cárdenas CRNP [address] [place] [address] Scheduled Procedures Name Priority Associated Diagnoses Date/Ti [...] this encounter Medical Devices Implanted Type Area Mask Former Device Identifier Shelf Expiration Date Model / Serial / Lot Port 8fr 1lumen Infusion St Latexfree Power Implantable - [id number] Implanted:Qty: 1 on 07/07/2023 by Acosta Mathur MD at OR [facility] Left: Chest CR BARD : PERIPHERAL VASCULAR [id number] 05/04/2024 [id number] / / [id number] documented as of this encounter Advance Directives Documents on File Type Date Recorded Patient Painting Instructor Expl 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 Question Answer Comments Discussion of Advance Directives occurred with: Patient Care Teams Mercury Washer Relationship Specialty Start Date End Date Lenora Harding MD [address] [place] [address] PCP - General Family Medicine 12/31/21 documented as of this encounter
--- OUTSIDE RECORDS SUMMARY | 2023-09-17 15:10 | External Medical Summary | Summary of Care ---
Author Name Unknown Organization [facility] Address [address] [place] [address] Phone [phone] Care Team Providers Care Hospitality Ambassador Name Role Phone Lenora Harding MD Primary Care Provid er Reason for Visit * Reason Comments NEW PATIENT Cholecystitis, acute . * Evaluate & Treat - Unlimited Visits (Within 30 days (routine)) - Pending Review Specialty Diagnoses / Procedures Referred By Yury t Referred To Contact General Surgery Diagnoses Cholecystitis, acute Asad Newsome MD [address] [place] [address] Eduardo Ernst MD [address] [place] [address] Referral ID Status Reason Start Date Expiration Date Visits Requested Visits Authorized [id number] Pending Review Second Opinion 08/03/[id number] Encounter Details Date Type Department Care Team (Late st Contact Info) Description 08/08/2023 9:00 AM EST Office Visit General Surgery, [facility] [address] [place] [address] Kin Stubbs MD [address] [place] [address] Acalculous cholecystitis* Allergies No known active allergiesdocumented as of [...] Oral Tablet (Lopressor)Indication s:Coronary artery disease involving [place] heart, unspecified vessel or lesion type, unspecified [...] obstruction 06/01/2023 Type 2 diabetes mellitus, wi out long-term current use of insulin 05/31/2023 Pancreatic [...] Next Due Pneumococcal Conjugate Vacci ne, 20-valent ([id number]) 06/03/2023(Deferred: Patient Refused) Seasonal Influenza, PF, 6 [...] Sign Reading Time Taken Comments Blood Pressure 156/74 08/08/2023 8:50 AM EST Pulse 82 08/08/2023 8:50 AM EST Temperature - - Respiratory Rate - - Oxygen Saturation - - Inhaled Oxygen Concentration - - Weight 84.2 kg (185 lb 9.6 oz) 08/08/2023 8:50 A M EST Height - - Body Mass Index 26.63 08/07/2023 10:08 AM EST documented in this encounter Progress Notes * Kin Stubbs MD - 08/08/2023 9:24 AM EST HISTORY AND PHYSICAL EXAMINATION - General Surgery Name: Demar Estrella Date: 08/08/2023 Time: 9:24 AM Subjective PRESENTING PROBLEM: Follow up cholecystitis HISTORY OF PRESENT ILLNESS: Demar estrella is a 58 year old male who is referral for consult follow up cholecystitis by Asad Liang. Patient with significant past medical history metastatic pancreatic cancer, CVA, left hemiplegia, CAD, type 2 DM. Patient was admitted [facility] for acute cholecystitis on July 28 2023. Patient had the conservative treatment with antibiotic. Patient was discharged on July 31 2023. Patient was doing fine since discharge. Patient denies abdominal pain, no nausea or vomiting, no fever. Tolerated regular diet. PROBLEM LIST: Patient Active Problem List Diagnosis Code Hypertension [...] cancer Z80.0 Encounter for antineoplastic chemotherapy Z51.11 PAST MEDICAL HISTORY: Past Medical History: Diagnosis Date Allergic rhinitis CVA (cerebral vascular accident) (HCC) 09/2016 Dyslipidemia, goal LDL below 100 02/14 Essential hypertension with goal blood pressure less than 140/90 INFORMATION 03/2016 10 year cardiovascular risk of 9.7%, possible lower to 1.9%: Lifetime risk of 50%, possibly lower to 5%. MEDICATION USE AGREEMENT 12/14/2016 PAST SURGICAL HISTORY: Past Surgical History: Procedure Laterality Date COLONOSCOPY, DIAGNOSTIC (RECTUM) 04/12/2017 hyperplastic polyp and prominent lymphoid tissue, repeat 5 yrs/COLONOSCOPY FLEXIBLE PROXIMAL DIAGNOSTIC performed by Jayashree Alston MD at ENDOSCOPY [facility] COLONOSCOPY, DIAGNOSTIC (RECTUM) 07/19/2022 non-bleeding internal hemorrhoids / no specimens collected / 5 year recall / COLONOSCOPY FLEXIBLE PROXIMAL DIAGNOSTIC performed by Jayashree Alston MD at ENDOSCOPY [facility] EGD, W/ENDOSCOPIC US N/A 05/31/2023 ESOPHAGOGASTRODUODENOSCOPY (EGD), FLEXIBLE, TRANSORAL, ENDOSCOPIC ULTRASOUND performed by Demar Aparicio MD at ENDOSCOPY [facility] ERCP, DIAGNOSTIC, SPECIMEN COLLECTION N/A 06/02/2023 ENDOSCOPIC RETROGRADE CHOLANGIOPANCREATOGRAPHY (ERCP) DIAGNOSTIC performed by Demar Aparicio MD atENDOSCOPY [facility] INSER TUNN ACC DEV;5 YRS/OLDER Left 07/07/2023 INSERT TUNNELED CENTRAL VENOUS ACCESS WITH SUBQ PORT performed by Acosta Mathur MD at OR [facility] REMOVE TONSILS & ADENOIDS, UNDER 12 age 11 THROMBOENDARECTOMY W/PATCH,NECK INCISION Right 11/03/2016 Right CEA for symptomatic disease. 11/03/16. Dr. Cyrus Perez. [facility] FAMILY HISTORY: Family History Problem Relation Age of Onset Diabetes Mother Hypertension Mother Heart Disorder Mother stents x 6 Stomach cancer Uncle (Maternal) Lung cancer Aunt (Maternal) Breast Cancer Aunt (Maternal) Breast Cancer Aunt (Maternal) Pancreatic cancer Other Pancreatic cancer Other Pancreatic cancer Other SOCIAL HISTORY: Social History Tobacco Use Smoking status: Never Passive exposure: Current Smokeless tobacco: Never Substance Use Topics Alcohol use: Not Currently Comment: 1 beer per day Drug use: No Comment: no caffeine CURRENT MEDICATIONS: Note that discontinued continue to display for 24 hours. Ordered medications to be given in the future also display. Current Outpatient Medications Medication Sig Dispense Refill [...] 10 Unitsunder the skin in the morning. (Patient not taking: Reported on 08/07/2023) 3 mL 3 Lantus SoloStar 100 UNIT/ML [...] No current facility-administered medications for this visit. ALLERGIES: Patient has no known allergies. ROS: Review of Systems Constitutional: Negative. HENT: Negative. Eyes: Negative. Respiratory: Negative. Cardiovascular: Hypertension , CAD (coronary artery disease) Gastrointestinal: Pancreatic cancer metastasized to liver, Alcohol ingestion, 1-4 drinks per day , S/P ERCP Endocrine: Type 2 diabetes mellitus, Genitourinary: Negative. Musculoskeletal: Left hemiplegia Neurological: Cerebral infarction due to embolism Objective PHYSICAL EXAMINATION: Most Recent Vital Signs: BP 156/74 | Pulse 82 | Wt 84.2 kg (185 lb 9.6 oz) | BMI 26.63 kg/m | BSA 2.04 m Physical Exam Constitutional: Appearance: Normal appearance. He is obese. HENT: Head: Normocephalic and atraumatic. Eyes: Pupils: Pupils are equal, round, and reactive to light. Cardiovascular: Rate and Rhythm: Normal rate and regular rhythm. Pulses: Normal pulses. Heart sounds: Normal heart sounds. Pulmonary: Effort: Pulmonary effort is normal. Breath sounds: Normal breath sounds. Abdominal: General: Abdomen is flat. Bowel sounds are normal. Palpations: Abdomen is soft. Comments: No tenderness, no distend, bowel sounds positive Musculoskeletal: Cervical back: Normal range of motion and neck supple. Comments: Left hemiplegia Neurological: Mental Status: He is alert and oriented to person, place, and time. Psychiatric: Mood and Affect: Mood normal. Behavior: Behavior normal. LABS: Labs reviewed as indicated below: I reviewed CBC, CMP 08/07/2023 IMAGING: EXAM PET CT SKULL BASE TO MID-THIGH - 06/14/2023 3:56 pm HISTORY new pancreatic cancer suspicion of liver mets on Ct scan COMPARISON CT body dated 06/01/2023 MR abdomen dated 05/31/2023 TECHNIQUE Following the intravenous administration of approximately 11.68 mCi of FDG 18 and oral contrast Gastroview administration, PET/CT imaging was performed from the skull base through the mid thighs 64 minutes following the radiotracer injection. The patient's glucose level at the time of radiotracer injection was 88 mg/dL. This is the initial PET/CT for the above indication. The standardized uptake values (SUV) are normalized to BMI and are reported below using maximum values within a region of interest. FINDINGS Mediastinal blood pool SUV: 2.3. Hepatic SUV: 2.9. PET SCAN: Head / Neck: White matter hypodensity with sparing of the cortex in the right frontoparietal regionwith associated decreased metabolic activity and an area of focal hypermetabolism measuring SUV 6.3. Periapical lucencies in the right maxilla with partial opacification of the right maxillary sinus and associated metabolic activity. Chest: Few tiny pulmonary nodules which are below resolution for PET imaging. No suspicious metabolic activity. Abdomen/Pelvis: Metabolically active soft tissue mass at the pancreatic head measures approximately2.8 x 3.2 cm with SUV 8.0. Scattered foci of hypermetabolism in the liver, with a reference right dome focus correlating with a 1.3 x 1.3 cm hypodense lesion with SUV 4.7. Musculoskeletal / Other: No suspicious metabolic activity. CT SCAN: Head / Neck: Partial opacification of the right maxillary sinus. Calcified atherosclerosis of the carotid vasculature. Partially visualized ovoid calcification along the right frontoparietal calvarium. Chest: Mild calcified coronary artery atherosclerosis. Dependent changes in the lungs. Small hiatalhernia. Abdomen/Pelvis: Pyloric stent extends from the pylorus to the 2nd segment of the duodenum. Biliary stent with pneumobilia. Normal appendix. Colonic diverticulosis without evidence of acute diverticulitis. Improved small volume ascites and mesenteric edema in the right abdomen. Nonobstructing right lower pole calculi. Dystrophic prostate calcifications. Bilateral fat containing inguinal hernias. Mild calcified atherosclerosis. Musculoskeletal / Other: Mild degenerative osseous changes. Left femoral head bone island. IMPRESSION IMPRESSION 1. Metabolically active pancreatic head mass is consistent with known malignancy. 2. Scattered foci of increased metabolic activity in the liver consistent with metastases. 3. Suspected right frontoparietal brain metastasis. Further evaluation with contrast enhanced MRI of the brain using mass protocol is recommended. 4. Few tiny pulmonary nodules which are below resolution for PET imaging. 5. Metabolically active right maxillary dental paulette and reactive/odontogenic sinusitis. IMPRESSION and PLAN: IMP: F/U cholecystitis Assessment: Patient is a 58 years old the gentleman with metastatic pancreatic cancer, CVA, left hemiplegia, type 2 diabetes , CAD, HTN. who was diagnosed acute cholecystitis on 07/28/2023. Patient was admitted [facility] for conservative treatment with antibiotic. Patient was discharged on July 31, 2023. Patient was doing fine since discharge patient denies any abdominal pain. He tolerated regulardiet. no nausea or vomiting, no fever or chills. Plan: No surgical indication for cholecystectomy at this point. Follow up p.r.n. PRIMARY CARE PHYSICIAN: Lenora Harding MD documented in this encounter Nursing Notes * Karis Taveras MED ASSIST - 08/08/2023 8:51 AM EST Chief Complaint Patient presents with NEW PATIENT Cholecystitis, acute. Verified patient. No pain. Patient is here with his today. documented in this encounter Plan of Treatment Upcoming Encounters Date Type Department Care Team (Latest Contact Info) Description 4 2:00 PM EST Hospital Encounter OR [facility], Operating Room, [facility] - 4th Floor [address] [place] [address] Jayashree Alston MD [address] [place] [address] 4 2:00 PM EST - 4 2:44 PM EST Surgery OR [facility], Operating Room, [facility] - 4th Floor [address] [place] [address] Jayashree Alston MD [address] [place] [address] ESOPHAGOGASTRODUODENOSCOPY (EGD), FLEXIBLE, TRANSORAL, ENDOSCOPIC ULTRASOUND 4 12:00 PM EDT Laboratory Laboratory [place] Louise Reynoso [address] [place] [address] Grace [address] [place] [address] 4 1:00 PM EDT Hem/Onc Treatment Hematology/Onco logy Treatment, [place] [address] [place] [phone] [place], Chair 5 Hem Onc [address] [place], [place] [address] 4 10:50 AM EDT Office Visit [facility] [address] [facility], [place] [phone] Mary Calderón, [address] [facility], [place] [address] 4 9:00 AM EDT Scheduled Telephone Palliative Medicine, [facility] [address] [facility] 5th Floor [place] [address] [place], Nurse Palliative Medicine [facility] 5th [address] [facility] [place] [address] 4 8:00 AM EDT Office Visit Gastroenterolog y, [facility] [place] [address] Kacey Cárdenas CRNP [address] [place] [address] Scheduled Procedures Name Priority Associated Diagnoses Date/Ti me ESOPHAGOGASTRODUODENOSCOPY ( EGD), FLEXIBLE, TRANSORAL, ENDOSCOPIC ULTRASOUND Cholecystitis Pancreatic cancer (HCC) 08/11/2023 2:00 PM EST COLONOSCOPY FLEXIBLE PROXIMA L DIAGNOSTIC Recall History of colon polyps Scheduled Referrals Name Type Priority Associated Diagnoses Orde r Schedule SURGERY REFERRAL OP Referral Within 30 da ys (routine) Cholecystitis, acute Ordered: 08/03/2023 Health Maintenance Due Date Last Done Comments [...] this encounter Medical Devices Implanted Type Area District Captain Device Identifier Shelf Expiration Date Model / Serial / Lot Port 8fr 1lumen Infusion St Latexfree Power Implantable - [id number] Implanted:Qty: 1 on 07/07/2023 by Acosta Mathur MD at [facility] Left: Chest CR BARD : PERIPHERAL VASCULAR [id number] 05/04/2024 [id number] / / [id number] documented as of this encounter Visit Diagnoses Diagnosis Acalculous cholecystitis- Primary Cholecystitis, unspecified Cholecystitis Cholecystitis, unspecified Pancreatic cancer (HCC) Malignant neoplasm of pancreas, part unspecified documented in this encounter Advance Directives Documents on File Type Date Recorded Patient Java Performance Engineer Expl 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 Question Answer Comments Discussion of Advance Directives occurred with: Patient Care Teams Hospitality Ambassador Relationship Specialty Start Date End Date Lenora Harding MD [address] [place] [phone] PCP - General Family Medicine 12/31/21 documented as of this encounter"
--- OUTSIDE RECORDS SUMMARY | 2023-09-17 15:10 | External Medical Summary | Summary of Care ---
Author Name Unknown Organization [facility] Address [address] [place] [address] Phone [phone] Care Team Providers Care Child Development Consultant Name Role Phone Lenroa Harding MD Primary Care Provid er Reason for Visit * Reason Onset Date Comments Appointment 08/03/2023 Gastro referral Encounter Details Date Type Department Care Team ([facility] st Contact Info) Description 08/03/2023 Telephone [facility] [address] [place] [address] Lenora Harding MD [address] [place] [address] Appointment (Gastro referral) Allergies No known active allergiesdocumented as of [...] Oral Tablet (Lopressor)Indication s:Coronary artery disease involving [place] heart, unspecified vessel or lesion type, unspecified [...] Next Due Pneumococcal Conjugate Vacci ne, 20-valent ([id number]) 06/03/2023(Deferred: Patient Refused) Seasonal Influenza, PF, 6 [...] encounter Miscellaneous Notes * Telephone Encounter - Jayashree Alston MD - 08/07/2023 10:16 AM EST I spoke to him and discussed the procedure in details and he agreed. * Telephone Encounter - Inga Sandra OSA - 08/07/2023 10:08 AM EST Spoke to pt's , aware and agreeable for 08/11/23 at [facility]. * Telephone Encounter - Inga Sandra OSA - 08/07/2023 9:02 AM EST Ok'd for 08/11/23, saved time slot for pt. I also LMM for him to call back. * Telephone Encounter - Jayashree Alston MD - 08/07/2023 9:00 AM EST Tried calling, no answer. * Telephone Encounter - Inga Sandra OSA - 08/04/2023 5:17 PM EST Sent email to ask for OR time. * Telephone Encounter - Jessica Diez RN - 08/04/2023 1:12 PM EST Monday afternoon 08/10 there is block release in the OR. That looks like the only opportunity. I would say [address] Alston is also inpt. I am assuming the pt agreed. THanks, Mira * Telephone Encounter - Inga Sandra OSA - 08/04/2023 11:11 AM EST [facility] please review on where to add pt. Thanks! 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 At the same time we can evaluate his anemia and melena which could be related to the tumor Vs recurrent GOO due to tumor in growth inside the duodenal stent and if so we can do EUS guided GJ. I will call him tomorrow and discuss this with him and if he agrees then will schedule him for EUS next week with me at [facility]. * Telephone Encounter - Inga Sandra OSA - 08/03/2023 4:17 PM EST Gastro order was placed for cholecystitis, pancreatic cancer with mets to liver. Appt was scheduledfor this pt 01/22/24 for just a clinic visit. Please review. Thank you! * Telephone Encounter - Shira Wang OSA - 08/03/2023 1:08 PM EST Please call patient to schedule within one month per message from Dr. Newsome below. 08/03/2023 * Telephone Encounter - Asad Newsome MD - 08/03/2023 12:57 PM EST He needs seen within one month. * Telephone Encounter - Shira Wang OSA - 08/03/2023 10:42 AM EST Patient has an order in his chart to see Gastro. He is scheduled for Jan 21. Is it ok that patient waits this long? He is not willing to go to [place]. Please advise. 08/03/2023 documented in this encounter Plan of Treatment Upcoming Encounters Date Type Department Care Team (Latest Contact Info) Description 4 9:00 AM EST Office Visit General Surgery, [facility] [address] [place] [address] Kin Stubbs MD [address] [place] [address] 4 2:00 PM EST Hospital Encounter OR [facility], Operating Room, [facility] - 4th Floor [address] [place] [address] Jayashree Alston MD [address] [place] [address] 4 2:00 PM EST - 4 2:44 PM EST Surgery OR [facility], Operating Room, [facility] - 4th Floor [address] [place] [address] Jayashree Alston MD [address] [place] [address] ESOPHAGOGASTRODUODENOSCOPY (EGD), FLEXIBLE, TRANSORAL, ENDOSCOPIC ULTRASOUND 4 12:00 PM EDT Laboratory Laboratory [facility] [place] [address] [place] [address] [place], Lab Scenery [address] [place] [address] 4 1:00 PM EDT Hem/Onc Treatment Hematology/Onco logy Treatment, [place] [address] [place] [phone] [place], Chair 5 Hem Onc Scenery [address] [place] [address] 4 10:50 AM EDT Office Visit [facility] [address] [place] [phone] Mary Calderón, [address] [place] [address] 4 9:00 AM EDT Scheduled Telephone Palliative Medicine, [facility] [address] [facility] 5th [place] [address] [place], Nurse Palliative Medicine [facility] [address] [place] [id number] 4 8:00 AM EDT Office Visit Gastroenterolog y, [facility] [address] [place] [address] Kacey Cárdenas CRNP [address] [place] [address] Scheduled Procedures Name Priority Associated Diagnoses Date/Ti [...] this encounter Medical Devices Implanted Type Area Bus Driver School Device Identifier Shelf Expiration Date Model / Serial / Lot Port 8fr 1lumen Infusion St Latexfree Power Implantable - [id number] Implanted:Qty: 1 on 07/07/2023 by Acosta Mathur MD at OR [facility] Left: Chest CR BARD : PERIPHERAL VASCULAR [id number] 05/04/2024 [id number] / / [id number] documented as of this encounter Advance Directives Documents on File Type Date Recorded Patient Fiber Worker Expl 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 Question Answer Comments Discussion of Advance Directives occurred with: Patient Care Teams Child Development Consultant Relationship Specialty Start Date End Date Lenora Harding MD [address] [facility] [place] [phone] PCP - General Family Medicine 12/31/21 documented as of this encounter
--- OUTSIDE RECORDS SUMMARY | 2023-09-17 15:10 | External Medical Summary | Summary of Care ---
Author Name Unknown Organization [facility] Address [address] [place] [place] [address] Phone [phone] Care Team Providers Care Cloth Desizing Range Tender Name Role Phone Lenora Harding MD Primary Care Provid er Reason for Visit * Reason Onset Date Comments Other 08/07/2023 Encounter Details Date Type Department Care Team (Late st Contact Info) Description 08/07/2023 Telephone Hematology/Oncology [facility] [place] [address] [facility] [place] [phone] Ryne [facility] [address] [facility] [address] Other Allergies No known active allergiesdocumented as of [...] hemoglobin A1c goal of less than 7.0% ([facility]) USE UP TO FOUR TIMES DAILY FOR BLOOD GLUCOSE TESTING 100 Strip 11 03/03/2023 Active metFORMIN HCl ER 500 MG Oral Tablet Extended Release 24 Hour (Glucophage XR)Indications:Type 2 diabetes mellitus with hemoglobin A1c goal of less than 7.0% ([facility]) Take 1 Tablet by mouth [...] Oral Tablet (Lopressor)Indication s:Coronary artery disease involving [place] heart, unspecified vessel or lesion type, unspecified [...] Next Due Pneumococcal Conjugate Vacci ne, 20-valent ([id number]) 06/03/2023(Deferred: Patient Refused) Seasonal Influenza, PF, 6 [...] encounter Miscellaneous Notes * Telephone Encounter - Keegan Lopez RN - 08/07/2023 10:44 AM EST Called and spoke with Wiley, she is aware and will call their office. * Telephone Encounter - Keegan Lopez RN - 08/07/2023 9:[address] Alston's office needing patient to call their office @ [phone]. Called patient, no answer, LMOM with return # and the # to Gastro's office. documented in this encounter Plan of Treatment Upcoming Encounters Date Type Department Care Team (Latest Contact Info) Description 4 9:00 AM EST Office Visit General Surgery, [facility] [address] [place] [address] Kin Stubbs MD [address] [place] [address] 4 2:00 PM EST Hospital Encounter OR [facility], Operating Room, [facility] - 4th Floor [address] [place] [address] [place] [address] Jayashree Alston MD [address] [place] [address] 4 2:00 PM EST - 4 2:44 PM EST Surgery OR [facility], Operating Room, [facility] - 4th Floor 400 [facility] [place] [address] Jayashree Alston MD [address] [place] [address] ESOPHAGOGASTRODUODENOSCOPY (EGD), FLEXIBLE, TRANSORAL, ENDOSCOPIC ULTRASOUND 4 12:00 PM EDT Laboratory Laboratory [facility] [place] [address] [place] [phone] [place], Lab Scenery [address] [place] [address] 4 1:00 PM EDT Hem/Onc Treatment Hematology/Onco logy Treatment, [place] [address] [place] [phone] [place], Chair 5 Hem Onc Scen[address] [place] [address] 4 10:50 AM EDT Office Visit [facility] [address] [facility] [place] [phone] Mary Calderón, [address] [place] [address] 4 9:00 AM EDT Scheduled Telephone Palliative Medicine, [facility] [address] [facility] 5th Floor [place] [address] [place], Nurse Palliative Medicine [facility] 5th [address] [facility] [place] [address] 4 8:00 AM EDT Office Visit Gastroenterolog y, [facility] [address] [place] [address] Kacey Cárdenas CRNP [address] [place] [address] Scheduled Procedures Name Priority Associated Diagnoses Date/Ti [...] this encounter Medical Devices Implanted Type Area Concrete Pipe Making Machine Operator Device Identifier Shelf Expiration Date Model / Serial / Lot Port 8fr 1lumen Infusion St Latexfree Power Implantable - [id number] Implanted:Qty: 1 on 07/07/2023 by Acosta Mathur MD at OR [facility] Left: Chest CR BARD : PERIPHERAL VASCULAR [id number] 05/04/2024 [id number] / / [id number] documented as of this encounter Advance Directives Documents on File Type Date Recorded Patient Health Education Director Michelle mendoza POLST 08/03/2023 10:10 AM POLST (Morenita dos santos DNR) Latest Code Status on File Code Status Date Activated Date Inactivated Comments Full Code 05/30/2023 10:13 PM 06/03/2023 2:34 PM Th is order reflects the patients wishes and were consensually agreed upon. Question Answer Comments Discussion of Advance Directives occurred with: Patient Care Teams Cloth Desizing Range Tender Relationship Specialty Start Date End Date Lenora Harding MD [address] [place] [address] PCP - General Family Medicine 12/31/21 documented as of this encounter
--- OUTSIDE RECORDS SUMMARY | 2023-09-17 15:10 | External Medical Summary | Summary of Care ---
Author Name Unknown Organization [facility] Address [address] [facility] [place] [address] Phone [phone] Care Team Providers Care Cordwood Cutter Name Role Phone Lenora Harding MD Primary Care Provid er Encounter Details Date Type Department Care Team (Late st Contact Info) Description 08/08/2023 Telephone Hematology/Oncology [facility] [place] 200 [facility] [place] [address] Hannah Guillory CRNP [address] [place] [address] Allergies No known active allergiesdocumented [...] goal of less than 7.0% ([facility]) USE UP TO FOUR TIMES DAILY FOR BLOOD GLUCOSE TESTING 100 Strip 11 03/03/2023 Active metFORMIN HCl ER 500 MG Oral Tablet Extended Release 24 Hour (Glucophage XR)Indications:Type 2 diabetes mellitus with hemoglobin A1c goal of less than 7.0% ([facility]) Take 1 Tablet by mouth in the [...] Oral Tablet (Lopressor)Indication s:Coronary artery disease involving [place] heart, unspecified vessel or lesion type, unspecified [...] Next Due Pneumococcal Conjugate Vacci ne, 20-valent ([id number]) 06/03/2023(Deferred: Patient Refused) Seasonal Influenza, PF, 6 [...] Telephone Encounter - Berna Mtz OSA - 08/09/2023 8:45 AM EST Changed treatment per note below Also scheduled pt to see Dr Acharya 08/[address] being off wk in September Called pt and made them aware of the changes per below message They are aware and have no other questions at this time * Telephone Encounter - Hannah Guillory CRNP [...] 4 2:00 PM EST Hospital Encounter OR [facility], Operating Room, [facility] - 4th Floor [address] [place] [address] Jayashree Alston MD [address] [place] [address] 4 2:00 PM EST - 4 2:44 PM EST Surgery OR [facility], Operating Room, [facility] - 4th Floor [address] [place] [address] Jayashree Alston MD 132 [facility] [place] [address] ESOPHAGOGASTRODUODENOSCOPY (EGD), FLEXIBLE, TRANSORAL, ENDOSCOPIC ULTRASOUND 4 12:40 PM EDT Laboratory Laboratory [facility] [place] [address] [place] [address] [place], Lab Scenery 200 [facility] [place] [address] 4 1:45 PM EDT Hem/Onc Treatment Hematology/Onco logy Treatment, [place] [address] [place], [place] [address] [place], Chair 8 Hem Onc [facility] 200 [facility] [place] [address] 4 10:50 AM EDT Office Visit [facility] [address] [place] [phone] Mary Calderón, [address] [place] [address] 4 9:00 AM EDT Scheduled Telephone Palliative Medicine, [address] 5th [place] [address] [place], Nurse Palliative Medicine [address] [place] [address] 4 11:15 AM EDT Office Visit Hematology/Onco logy [facility]oso [place] [address] [place] [address] Ryne Acharya MD [address] [place] [address] 4 8:00 AM EDT Office Visit Gastroenterolog y, [facility] [address] [place] [address] Kacey Cárdenas CRNP [address] [place] [address] Scheduled Procedures Name Priority Associated Diagnoses Date/Ti [...] this encounter Medical Devices Implanted Type Area Commodity Analyst Device Identifier Shelf Expiration Date Model / Serial / Lot Port 8fr 1lumen Infusion St Latexfree Power Implantable - [id number] Implanted:Qty: 1 on 07/07/2023 by Acosta Mathur MD at OR [facility] Left: Chest CR BARD : PERIPHERAL VASCULAR [id number] 05/04/2024 [id number] / / [id number] documented as of this encounter Advance Directives Documents on File Type Date Recorded Patient Laborer Ammunition Assembly Expl 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 Question Answer Comments Discussion of Advance Directives occurred with: Patient Care Teams Cordwood Cutter Relationship Specialty Start Date End Date Lenora Harding MD [address] [facility] [place], [place] [phone] PCP - General Family Medicine 12/31/21 documented as of this encounter
--- OUTSIDE RECORDS SUMMARY | 2023-09-17 15:11 | External Medical Summary ---
Author Name Unknown Address Unknown Organization [facility] [place] [address] Laboratory Report Ordering Provider Test Date Status GINNY PATEL 08/07/2023 07:39:34 Final Observation Date Value Abnormality Reference (Units ) Status BUN 08/07/2023 07:39:34 9 6-20 (mg/dL) Final Creatinine 08/07/2023 07:39:34 0.9 0.6-1.2 (mg/dL) Final Glomerular filtration rate/1.73 sq M.predicted [Volume Rate/Area] in Serum, Plasma or Blood by Creatinine-based formula (CKD-EPI) 08/07/2023 07:39:34 >90 >=60 (mL/min) Final eGFR is calculated based on the CKD-EPI 2020 equation SODIUM 08/07/2023 07:39:34 138 135-146 (m mol/L) Final Potassium 08/07/2023 07:39:34 3.6 3.5-5.1 (m mol/L) Final Cl 08/07/2023 07:39:34 102 98-107 (mm ol/L) Final CO2 08/07/2023 07:39:34 26 22-32 (mmo l/L) Final Anion gap 08/07/2023 07:39:34 10 7-15 (mmol /L) Final Glucose 08/07/2023 07:39:34 189 Above high normal 70 -120 (mg/dL) Final Albumin 08/07/2023 07:39:34 3.4 Below low normal 3.8 -5.0 (g/dL) Final AST (Aspartate aminotransferase) 08/07/2023 07:39:34 75 Above high normal 10-50 (U/L) Final Alk Phos 08/07/2023 07:39:34 321 Above high normal 35 -130 (U/L) Final Bilirubin, Total 08/07/2023 07:39:34 0.8 <=1 .2 (mg/dL) Final Calcium 08/07/2023 07:39:34 9.3 8.4-10.2 ( mg/dL) Final Protein 08/07/2023 07:39:34 6.7 6.0-8.3 (g /dL) Final ALT (Alanine aminotransferase) 08/07/2023 07:39:34 71 Above high normal 10-50 (U/L) Final Performing Location [facility] [address] [place] [address]
--- OUTSIDE RECORDS SUMMARY | 2023-09-17 15:11 | External Medical Summary ---
Author Name Unknown Address Unknown Organization [facility] [place] [address] Laboratory Report Ordering Provider Test Date Status GINNY PATEL 08/07/2023 07:39:34 Final Observation Date Value Abnormality Reference (Units ) Status SYNC LEUKOCYTES IN BLOOD BY AUTOMATED COUNT 08/07/2023 07:39:34 6.53 4.00-10.80 (K/uL) Final Segs 08/07/2023 07:39:34 51.3 40.0-75.0 (%) Final Lymphs % 08/07/2023 07:39:34 13.5 Below low normal 18.0-42.0 (%) Final Monos 08/07/2023 07:39:34 23.3 Above high normal 1.0-11.0 (%) Final Eosinophils 08/07/2023 07:39:34 11.3 Above high normal 0.0-6.0 (%) Final Basos 08/07/2023 07:39:34 0.6 0.0-2.0 (%) Final Absolute Segs 08/07/2023 07:39:34 3.35 1.80-7.70 (K/uL) Final Lymphs, absolute 08/07/2023 07:39:34 0.88 Below low normal 1.00-4.80 (K/ul) Final Monos, Abs 08/07/2023 07:39:34 1.52 Above high normal 0.00-1.10 (K/uL) Final Eos, Abs 08/07/2023 07:39:34 0.74 Above high normal 0.00-0.70 (K/uL) Final Basos, Abs 08/07/2023 07:39:34 0.04 0.00-0.20 (K/uL) Final Performing Location [facility] [place] [address]
--- OUTSIDE RECORDS SUMMARY | 2023-09-17 15:11 | External Medical Summary | Summary of Care ---
Author Name Unknown Organization [facility] Address [address] [place] [address] Phone [phone] Care Team Providers Care Angiography Technologist Name Role Phone Lenora Harding MD Primary Care Provid er Reason for Visit * Reason Onset Date Comments Appointment 08/03/2023 Gastro referral Encounter Details Date Type Department Care Team ([facility] st Contact Info) Description 08/03/2023 Telephone [facility] [address] [place] [address] Lenora Harding MD [address] [place] [address] Appointment (Gastro referral) Allergies No [...] the morning. 3 mL 3 07/14/2023 Active Lantus SoloStar 100 UNIT/ML Subcutaneous [...] Oral Tablet (Lopressor)Indication s:Coronary artery disease involving [place] heart, unspecified vessel or lesion type, unspecified [...] Next Due Pneumococcal Conjugate Vacci ne, 20-valent ([id number]) 06/03/2023(Deferred: Patient Refused) Seasonal Influenza, PF, 6 [...] encounter Miscellaneous Notes * Telephone Encounter - Inga Sandra OSA - 08/07/2023 10:08 AM EST Spoke to pt's , aware and agreeable for 08/11/23 at [facility]. * Telephone Encounter - Inga Sandra [...] Diez RN - 08/04/2023 1:12 PM EST 08/10 there is block release in the OR. That looks like the only opportunity. I would say [address] Alston is also inpt. I am assuming the pt agreed. THanks, Mira * Telephone Encounter - Inga Sandra OSA - 08/04/2023 11:11 AM EST [facility] please review on where to add pt. [...] for EUS next week with me at [facility]. * Telephone Encounter - Inga Sandra [...] He is not willing to go to [place]. Please advise. 08/03/2023 documented in this encounter Plan of Treatment Upcoming Encounters Date Type Department Care Team (Latest Contact Info) Description 4 9:00 AM EST Office Visit General Surgery, [facility] [address] [place] [address] Kin Stubbs MD [address] [address] 4 2:00 PM EST Hospital Encounter OR [facility], Operating Room, [facility] - 4th Floor [address] [place] [address] Jayashree Alston MD [address] [place] [address] 4 2:00 PM EST - 4 2:44 PM EST Surgery OR [facility], Operating Room, [facility] - 4th Floor [address] [place] [address] Jayashree Alston MD [address] [place] [address] ESOPHAGOGASTRODUODENOSCOPY (EGD), FLEXIBLE, TRANSORAL, ENDOSCOPIC ULTRASOUND 4 12:00 PM EDT Laboratory Laboratory [place] [address] [place] [phone] [place] Lab Scenery [address] [place] [address] 4 1:00 PM EDT Hem/Onc Treatment Hematology/Onco logy Treatment, [place] [address] [place] [address] [place], Chair 5 Hem Onc Scenery [address] [place] [address] 4 10:50 AM EDT Office Visit [facility] [address] [facility] [phone] Mary Calderón, [address] [place] [address] 4 9:00 AM EDT Scheduled Telephone Palliative Medicine, [facility] [address] [facility] 5th Floor [place] [address] [place], Nurse Palliative Medicine [facility] 5th [address] [place] [address] 4 8:00 AM EDT Office Visit Gastroenterolog y, [facility] [place] [address] [place] [address] Kacey Cárdenas CRNP [address] [place] [address] Scheduled Procedures Name Priority Associated Diagnoses Date/Ti [...] this encounter Medical Devices Implanted Type Area Database Developer Device Identifier Shelf Expiration Date Model / Serial / Lot Port 8fr 1lumen Infusion St Latexfree Power Implantable - [id number] Implanted:Qty: 1 on 07/07/2023 by Acosta Mathur MD at OR [facility] Left: Chest CR BARD : PERIPHERAL VASCULAR [id number] 05/04/2024 [id number] / / [id number] documented as of this encounter Advance Directives Documents on File Type Date Recorded Patient Emt I/99 Expl 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 Question Answer Comments Discussion of Advance Directives occurred with: Patient Care Teams Angiography Technologist Relationship Specialty Start Date End Date Lenora Harding MD [address] [place] [address] PCP - General Family Medicine 12/31/21 documented as of this encounter
--- OUTSIDE RECORDS SUMMARY | 2023-09-17 15:11 | External Medical Summary ---
Author Name Unknown Address Unknown Organization [facility] [address] [address] Laboratory Report Ordering Provider Test Date Status GINNY PATEL 08/07/2023 07:39:34 Final Observation Date Value Abnormality Reference (Units ) Status Nucleated erythrocytes/100 leukocytes [Ratio] in Blood by Automated count 08/07/2023 07:39:34 Final Variant lymphocytes [Presence] in Blood by Light microscopy 08/07/2023 07:39:34 Present Abnormal None Seen Final Performing Location [facility] [address] [address]
--- OUTSIDE RECORDS SUMMARY | 2023-09-17 15:11 | External Medical Summary | Summary of Care ---
Author Name Unknown Organization [facility] Address [address] [place] [address] Phone [phone] Care Team Providers Care Pinion Sorter Name Role Phone Lenora Harding MD Primary Care Provid er Reason for Visit * Reason Onset Date Comments Abnormal Genetic Testing 08/04/2023 Encounter Details Date Type Department Care Team (Late st Contact Info) Description 08/04/2023 Telephone Genetics HemOnc, [facility] [address] [place] [address] Miranda Medina, MS [address] [place] [address] Abnormal Genetic Testing Allergies No known active allergiesdocumented as of this encounter (statuses as of 08/04/2023) Medications Medication Sig Dispensed Refills Start Date [...] goal of less than 7.0% ([facility]) USE UP TO FOUR TIMES DAILY FOR BLOOD GLUCOSE TESTING 100 Strip 11 03/03/2023 Active metFORMIN HCl ER 500 MG Oral Tablet Extended Release 24 Hour (Glucophage XR)Indications:Type 2 diabetes mellitus with hemoglobin A1c goal of less than 7.0% ([facility]) Take 1 Tablet by mouth [...] Oral Tablet (Lopressor)Indication s:Coronary artery disease involving tlingit & haida heart, unspecified vessel or lesion type, unspecified [...] as of this encounter (statuses as of 08/04/2023) Active Problems Problem Noted Date Diagnosed Date [...] as of this encounter (statuses as of 08/04/2023) Resolved Problems Problem Noted Date Diagnosed Date [...] as of this encounter (statuses as of 08/04/2023) Immunizations Name Administration Dates Next Due Pneumococcal Conjugate Vacci ne, 20-valent ([id number]) 06/03/2023(Deferred: Patient Refused) Seasonal Influenza, PF, 6 [...] encounter Miscellaneous Notes * Telephone Encounter - Miranda Medina, MS - 08/04/2023 12:08 PM EST I contacted Demar Ocampo today to disclose genetic test results. Spoke to patient directly and all questions answered. 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 ClinVarID: [id number] This result is consistent with BARD1-related cancer risk Test Ordered: Multi-Cancer Panel at [facility] (70 genes) Genes Included: AIP, ALK, APC, WILL, AXIN2, BAP1, BARD1, BLM, BMPR1A, BRCA1, BRCA2, BRIP1, CDC73, CDH1, CDK4, CDKN1B, CDKN2A (p14ARF), CDKN2A (m39HKZ9d), CHEK2, CTNNA1, DICER1, EGFR, EPCAM, FH, FLCN, GREM1, HOXB13, KIT, LTZR1, MAX, MBD4, MEN1, MET, MITF, MLH1, MSH2, MSH3, MSH6, MUTYH, NF1, NF2, NTHL1, PALB2, PDGFRA, PMS2, POLD1, POLE, POT1, RYSHM5G, PTCH1, PTEN, RAD51C, RAD51D, RB1, RET, SDHA, SDHAF2, SDHB, SDHC, SDHD, SMAD4, SMARCA4, SMARCB1, SMARCE1, STK11, SUFU, POEK414, TP53, TSC1, TSC2, VHL Variant of uncertain significance (VUS) identified: BRCA1, c.[id number] (p.Umi455xin); ClinVarID:[id number] Seen by other laboratories, no conflicting pathogenicity calls, no clinical relevance Summary: A pathogenic variant was identified associated with increased risk for Breast cancer(s). Cancer Risks: Cancer Risks with BARD1 variants^ Average risk Breast Cancer 17-30% 12% ^NCCN Genetic/Familial High-Risk Assessment: Breast, Ovarian, and Pancreatic v2.2023 No known association with pancreatic cancer. Management per NCCN (National Comprehensive Cancer Network) Annual mammogram, consider tomosynthesis Consider annual breast MRI (with and without contrast) starting at age 40 Note: There may be reason to consider a PARP inhibitor for Mr. Ocampo. Lynparza has been used in individuals with BARD1 germline or somatic variants and metastatic, castrate-resistant prostate cancer. I was not able to find any cases that it was used in individuals with pancreatic cancer. Risk to Relatives: Demar should be encouraged to discuss this result with family members; close relatives have up to a50% chance of carrying this variant and having the associated increased cancer risk. The genetic testing laboratory has a policy of offering genetic testing to family members at no charge for 150 days after Sagrario report issue date 08/01/2023 (by 12/29/2023). A family letter will besent with a summary of his results. Miranda Medina MS, [facility] Licensed, Certified Genetic Counselor Cancer Gen[facility] 08/04/2023 documented in this encounter Plan of Treatment Upcoming Encounters Date Type Department Care Team (Late st Contact Info) Description 08/07/2023 7:00 AM EST Laboratory Laboratory [facility] 200 [facility] [place] [phone] [facility] [address] [place] [address] 08/07/2023 8:00 AM EST Office Visit Hematology/Oncology [facility] [place] 200 [facility] [place] [address] Hannah Guillory CRNP [address] [place] [address] [place] [phone] 08/07/2023 8:30 AM EST Hem/Onc Treatment Hematology/Oncology Treatment, [place] 200 [facility] [place] [phone] Park, Chair 7 Hem Onc Scenery [address] [place] [address] 08/08/2023 9:00 AM EST Office Visit General Surgery, [facility] 132 [facility] [place] [address] Kin Stubbs MD 132 [facility] [place] [address] 08/15/2023 12:00 PM EDT Laboratory Laboratory [place] [address] [place] [phone] [place], Lab Scenery [address] [place] [address] 08/15/2023 1:00 PM EDT Hem/Onc Treatment Hematology/Oncology Treatment, [place] [address] [place] [phone] [place], Chair 5 Hem Onc Scenery [address] [place] [address] 08/21/2023 10:50 AM EDT Office Visit [facility] [address] [place] [phone] Mary Calderón, DO [address] [place] [address] 08/30/2023 9:00 AM EDT Scheduled Telephone Palliative Medicine, [facility] 400 [facility] 5th Floor [place] [address] [place], Nurse Palliative Medicine [facility] 5th [facility] [address] 01/22/2024 8:00 AM EDT Office Visit Gastroenterology, [facility] 132 [facility] [place] [address] Kacey Cárdenas, CADEN [address] [place] [address] Scheduled Procedures Name Priority Associated Diagnoses Date/Ti [...] 02/09/2023 Albumin/Creatinine Ratio 05/11/2024 05/11/2023, 04/05 GFR 07/25/2024 07/25/2023, 07/06, 07/10/2023, Additional history exists COLONOSCOPY-EVERY 5 YRS AGES 18-100 07/19/2027 07/19/2022, 07/19/2022, 04/12/2017, Additional history exists Zoster Vaccines Completed 03/16/2021, 09/11/2020 GARDASIL-HPV IMMUNIZATION SERIES Aged Out No longer eligible based on patient's age to complete this topic MENINGOCOCCAL (MENACTRA/MENVEO) Aged Out No longer eligible based on patient's age to complete this topic documented as of this encounter Medical Devices Implanted Type Area Education Assistant Device Identifier Shelf Expiration Date Model / Serial / Lot Port 8fr 1lumen Infusion St Latexfree Power Implantable - [id number] Implanted:Qty: 1 on 07/07/2023 by Acosta Mathur MD at OR [facility] Left: Chest CR BARD : PERIPHERAL VASCULAR [id number] 05/04/2024 [id number] / / [id number] documented as of this encounter Advance Directives Documents on File Type Date Recorded Patient Electricity Trading Analyst Expl 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 Question Answer Comments Discussion of Advance Directives occurred with: Patient Care Teams Pinion Sorter Relationship Specialty Start Date End Date Lenora Harding MD [address], [place] [phone] PCP - General Family Medicine 12/31/21 documented as of this encounter
--- OUTSIDE RECORDS SUMMARY | 2023-09-17 15:11 | External Medical Summary | Summary of Care ---
Author Name Unknown Organization [facility] Address [address] [place] [address] Phone [phone] Care Team Providers Care Manager Relocation Name Role Phone Lenora Harding MD Primary Care Provid er Reason for Visit * Reason Onset Date Comments Appointment 08/03/2023 Gastro referral Encounter Details Date Type Department Care Team ([facility] st Contact Info) Description 08/03/2023 Telephone [facility] [address] [place] [address] Lenora Harding MD [address] [place] [address] Appointment (Gastro referral) Allergies No [...] Oral Tablet (Lopressor)Indication s:Coronary artery disease involving chefornak heart, unspecified vessel or lesion type, unspecified [...] Next Due Pneumococcal Conjugate Vacci ne, 20-valent ([id number]) 06/03/2023(Deferred: Patient Refused) Seasonal Influenza, PF, 6 [...] Sandra OSA - 08/04/2023 11:11 AM EST [place] please review on where to add pt. Thanks! * Telephone Encounter - Jayashree Alston MD - 08/03/2023 8:16 PM EST I reviewed his imaging at [facility] and I suspect his cholecystitis is from [...] for EUS next week with me at [facility]. * Telephone Encounter - Inga Sandra OSA [...] He is not willing to go to [place]. Please advise. 08/03/2023 documented in this encounter Plan of Treatment Upcoming Encounters Date Type Department Care Team (Latest Contact Info) Description 9:00 AM EST Office Visit General Surgery, [facility] 132 [facility] [place] [address] Kin Stubbs MD [address] [place] [address] 4 2:00 PM EST Hospital Encounter OR [facility], Operating Room, [facility] - 4th Floor 400 [facility] [place] [address] Jayashree Alston MD [address] [place] [address] 4 2:00 PM EST - 4 2:44 PM EST Surgery OR [facility], Operating Room, [facility] - 4th Floor 400 [facility] [place] [address] Jayashree Alston MD [address] [place] [address] ESOPHAGOGASTRODUODENOSCOPY (EGD), FLEXIBLE, TRANSORAL, ENDOSCOPIC ULTRASOUND 4 12:00 PM EDT Laboratory Laboratory [facility] [place] [address] [place] [phone] [place], Lab Scenery 200 [facility] [place] [address] 4 1:00 PM EDT Hem/Onc Treatment Hematology/Onco logy Treatment, [place] [address] [place] [phone] [place], Chair 5 Hem Onc Scenery [address] [place] [address] 4 10:50 AM EDT Office Visit [facility] [address] [facility], [place] [phone] Mary Calderón, [address] [facility], [place] [address] 4 9:00 AM EDT Scheduled Telephone Palliative Medicine, [facility] 400 [facility] 5th Floor [place] [address] [place], Nurse Palliative Medicine [facility] 5th 400 [facility] [place] [address] 4 8:00 AM EDT Office Visit Gastroenterolog y, [facility] [address] [place] [address] Kacey Cárdenas CRNP [address] [place] [address] Scheduled Procedures Name Priority Associated Diagnoses Date/Ti [...] this encounter Medical Devices Implanted Type Area Section Crews Activities Clerk Device Identifier Shelf Expiration Date Model / Serial / Lot Port 8fr 1lumen Infusion St Latexfree Power Implantable - [id number] Implanted:Qty: 1 on 07/07/2023 by Acosta Mathur MD at OR [facility] Left: Chest CR BARD : PERIPHERAL VASCULAR [id number] 05/04/2024 [id number] / / [id number] documented as of this encounter Advance Directives Documents on File Type Date Recorded Patient Paint Line Supervisor Expl 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 Question Answer Comments Discussion of Advance Directives occurred with: Patient Care Teams Manager Relocation Relationship Specialty Start Date End Date Lenora Harding MD [address] [place] [address] PCP - General Family Medicine 12/31/21 documented as of this encounter
--- OUTSIDE RECORDS SUMMARY | 2023-09-17 15:11 | External Medical Summary ---
Author Name Unknown Address Unknown Organization K01:LAB[facility]ATORY [facility] - [address] [place] [address] Laboratory Report Ordering Provider Test Date Status GINNY PATEL 08/07/2023 07:39:34 Final Observation Date Value Abnormality Reference (Units ) Status Cancer Ag 19-9 08/07/2023 07:39:34 286.1 Above high norm al <35.0 (U/mL) Final Performing Location [facility] - [address] [place] [address]
--- OUTSIDE RECORDS SUMMARY | 2023-09-17 15:11 | External Medical Summary | Summary of Care ---
Author Name Unknown Organization [facility] Address [address] [place] [address] Phone [phone] Care Team Providers Care Assembler Name Role Phone Lenora Harding MD Primary Care Provid er Reason for Visit * Reason Onset Date Comments Appointment 08/03/2023 Gastro referral Encounter Details Date Type Department Care Team ([facility] st Contact Info) Description 08/03/[address] [facility] [address] [place] [address] Lenora Harding MD [address] [place] [address] Appointment (Gastro referral) Allergies No [...] Oral Tablet (Lopressor)Indication s:Coronary artery disease involving chemehuevi heart, unspecified vessel or lesion type, unspecified [...] Next Due Pneumococcal Conjugate Vacci ne, 20-valent ([id number]) 06/03/2023(Deferred: Patient Refused) Seasonal Influenza, PF, 6 [...] encounter Miscellaneous Notes * Telephone Encounter - Jessica Diez RN - 08/04/2023 1:12 PM EST Monday afternoon 08/10 there is block release in the OR. That looks like the only opportunity. I would say [address] Alston is also inpt. I am assuming the pt agreed. THanks, Mira * Telephone Encounter - Inga Sandra OSA - 08/04/2023 11:[address] [facility] please review on where to add pt. Thanks! * Telephone Encounter - Jayashree Alston MD - 08/03/2023 8:16 PM EST I reviewed his imaging at [facility] and I suspect his cholecystitis is from [...] for EUS next week with me at [facility]. * Telephone Encounter - Inga Sandra [...] He is not willing to go to [place]. Please advise. 08/03/2023 documented in this encounter Plan of Treatment Upcoming Encounters Date Type Department Care Team (Late st Contact Info) Description 08/07/2023 7:00 AM EST Laboratory Laboratory [facility] [address] [facility] [place] [phone] [place] [address] [facility] [place] [address] 08/07/2023 8:00 AM EST Office Visit Hematology/Oncology [facility] [place] [address] [facility] [place] [phone] Hannah Guillory CRNP 400 [facility] [place] [address] 08/07/2023 8:30 AM EST Hem/Onc Treatment Hematology/Oncology Treatment, [place] [address] [place], [place] [phone] [place], Chair 7 Hem Onc Scenery 200 [facility] [place] [address] 08/08/2023 9:00 AM EST Office Visit General Surgery, [facility] [address] [place] [address] Kin Stubbs MD [address] [place] [address] 08/15/2023 12:00 PM EDT Laboratory Laboratory [facility] [place] [address] [place] [address] [place], [facility] [place] [address] 08/15/2023 1:00 PM EDT Hem/Onc Treatment Hematology/Oncology Treatment, [place] 200 [facility] [place] [phone] [place], Chair 5 Hem Onc Scenery 200 [place] [address] 08/21/2023 10:50 AM EDT Office Visit [facility] [address] [facility] [place] [phone] Mary Calderón, [address] [place] [address] 08/30/2023 9:00 AM EDT Scheduled Telephone Palliative Medicine, [facility] 400 [facility] 5th [place] [address] [place], Nurse Palliative Medicine [facility] 5th 400 [facility] [place] [address] 01/22/2024 8:00 AM EDT Office Visit Gastroenterology, [facility] [address] [place] [address] Kacey Cárdenas CRNP [address] [place] [address] Scheduled Procedures Name Priority Associated Diagnoses Date/Ti [...] this encounter Medical Devices Implanted Type Area Settlement Processor Device Identifier Shelf Expiration Date Model / Serial / Lot Port 8fr 1lumen Infusion St Latexfree Power Implantable - [id number] Implanted:Qty: 1 on 07/07/2023 by Acosta Mathur MD at OR [facility] Left: Chest CR BARD : PERIPHERAL VASCULAR [id number] 05/04/2024 [id number] / / [id number] documented as of this encounter Advance Directives Documents on File Type Date Recorded Patient Tax Revenue Officer Expl 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 Question Answer Comments Discussion of Advance Directives occurred with: Patient Care Teams Assembler Relationship Specialty Start Date End Date Lenora Harding MD [address] [place] [address] PCP - General Family Medicine 12/31/21 documented as of this encounter
--- OUTSIDE RECORDS SUMMARY | 2023-09-17 15:11 | External Medical Summary ---
Author Name Unknown Address Unknown Organization K09:[facility] [place] [address] Laboratory Report Ordering Provider Test Date Status GINNY PATEL 08/07/2023 07:39:34 Final Observation Date Value Abnormality Reference (Units ) Status WBC, Total 08/07/2023 07:39:34 6.53 4.00-10.8 0 (K/uL) Final RBC 08/07/2023 07:39:34 3.57 4.50-5.25 (M/uL) Final Hemoglobin 08/07/2023 07:39:34 10.0 Below low normal 14 .0-16.8 (g/dL) Final HCT 08/07/2023 07:39:34 32.2 Below low normal 40. 0-48.4 (%) Final MCV 08/07/2023 07:39:34 90.2 82.0-99.5 (fL) Final MCH 08/07/2023 07:39:34 28.0 27.0-34.0 (pg) Final MCHC 08/07/2023 07:39:34 31.1 32.0-36.0 (g/dL) Final RDW 08/07/2023 07:39:34 14.5 11.5-15.5 (%) Final Platelets 08/07/2023 07:39:34 281 140-400 (K /uL) Final MPV 08/07/2023 07:39:34 8.5 6.6-11.1 ( fL) Final Performing Location [facility] [place] [address]
--- OUTSIDE RECORDS SUMMARY | 2023-09-17 15:11 | External Medical Summary | Summary of Care ---
Author Name Unknown Organization [facility] Address [address] [place] [address] Phone [phone] Care Team Providers Care Separating Machine Operator Name Role Phone Lenora Harding MD Primary Care Provid er Reason for Visit * Reason Onset Date Comments Appointment 08/03/2023 Gastro referral Encounter Details Date Type Department Care Team ([facility] st Contact Info) Description 08/03/2023 Telephone [facility] [address] [place] [address] Lenora Harding MD [address] [place] [address] Appointment (Gastro referral) Allergies No [...] Oral Tablet (Lopressor)Indication s:Coronary artery disease involving sycuan heart, unspecified vessel or lesion type, unspecified [...] Next Due Pneumococcal Conjugate Vacci ne, 20-valent ([id number]) 06/03/2023(Deferred: Patient Refused) Seasonal Influenza, PF, 6 [...] inpt. I am assuming the pt agreed. Jeferson, Mira * Telephone Encounter - Inga Sandra OSA - 08/04/2023 11:11 AM EST [place] please review on where to add pt. Thanks! * Telephone Encounter - Jayashree Alston MD - 08/03/2023 8:16 PM EST I reviewed his imaging at [facility] and I suspect his cholecystitis is from [...] for EUS next week with me at [facility]. * Telephone Encounter - Inga Sandra [...] He is not willing to go to [place]. Please advise. 08/03/2023 documented in this encounter Plan of Treatment Upcoming Encounters Date Type Department Care Team (Late st Contact Info) Description 08/07/2023 7:00 AM EST Laboratory Laboratory [facility] [address] [place] [phone] [facility] 200 [facility] [place] [address] 08/07/2023 8:00 AM EST Office Visit Hematology/Oncology [facility] [place] [address] [place] [phone] Hannah Guillory CRNP 400 [facility] [address] 08/07/2023 8:30 AM EST Hem/Onc Treatment Hematology/Oncology Treatment, [place] [facility] [phone] [place], Chair 7 Hem Onc [facility] 200 [place] [address] 08/08/2023 9:00 AM EST Office Visit General Surgery, [facility] 132 [facility] [place] [address] Kin Stubbs MD 132 [facility] [place] [address] 08/15/2023 12:00 PM EDT Laboratory Laboratory [facility] [place] [address] [place] [phone] [place], Lab [facility] 200 [facility] [place], [place] [address] 08/15/2023 1:00 PM EDT Hem/Onc Treatment Hematology/Oncology Treatment, [place] 200 [facility], [place] [phone] [place], Chair 5 Hem Onc [facility] [address] [facility] [place] [address] 08/21/2023 10:50 AM EDT Office Visit [facility] [place] [address] [facility] [phone] Mary Calderón DO [address] [facility], [place] [address] 08/30/2023 9:00 AM EDT Scheduled Telephone Palliative Medicine, [facility] 400 [facility] 5th Floor [place] [address] [place], Nurse Palliative Medicine [facility] 5th [address] [place] [address] 01/22/2024 8:00 AM EDT Office Visit Gastroenterology, [facility] [address] [place] [address] Kacey Cárdenas CRNP [address] [place] [address] Scheduled Procedures Name Priority Associated Diagnoses Date/Ti [...] this encounter Medical Devices Implanted Type Area Abattoir Manager Device Identifier Shelf Expiration Date Model / Serial / Lot Port 8fr 1lumen Infusion St Latexfree Power Implantable - [id number] Implanted:Qty: 1 on 07/07/2023 by Acosta Mathur MD at [facility] Left: Chest CR BARD : PERIPHERAL VASCULAR [id number] 05/04/2024 [id number] / / [id number] documented as of this encounter Advance Directives Documents on File Type Date Recorded Patient Vice Investigator Expl 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 Question Answer Comments Discussion of Advance Directives occurred with: Patient Care Teams Separating Machine Operator Relationship Specialty Start Date End Date Lenora Harding MD [address] [place] [address] PCP - General Family Medicine 12/31/21 documented as of this encounter
--- OUTSIDE RECORDS SUMMARY | 2023-09-17 15:11 | External Medical Summary | Summary of Care ---
Author Name Unknown Organization [facility] Address [address] [place] [address] Phone [phone] Care Team Providers Care Administrative Services Director Name Role Phone Lenora Harding MD Primary Care Provid er Reason for Visit * Reason Onset Date Comments Appointment 08/03/2023 Gastro referral Encounter Details Date Type Department Care Team ([facility] st Contact Info) Description 08/03/2023 Telephone [facility] [address] [place] [address] Lenora Harding MD [address] [place] [address] Appointment (Gastro referral) Allergies No known active allergiesdocumented as of this encounter (statuses as of 08/03/2023) Medications Medication Sig Dispensed Refills Start Date [...] Oral Tablet (Lopressor)Indication s:Coronary artery disease involving chickahominy indians[place]eastern division heart, unspecified vessel or lesion type, unspecified [...] as of this encounter (statuses as of 08/03/2023) Active Problems Problem Noted Date Diagnosed Date [...] as of this encounter (statuses as of 08/03/2023) Resolved Problems Problem Noted Date Diagnosed Date [...] as of this encounter (statuses as of 08/03/2023) Immunizations Name Administration Dates Next Due Pneumococcal Conjugate Vacci ne, 20-valent ([id number]) 06/03/2023(Deferred: Patient Refused) Seasonal Influenza, PF, 6 [...] He is not willing to go to [place]. Please advise. 08/03/2023 documented in this encounter Plan of Treatment Upcoming Encounters Date Type Department Care Team (Late st Contact Info) Description 08/07/2023 7:00 AM EST Laboratory Laboratory [facility] [address] [place] [phone] [place], Lab Scenery [address] [facility] [place] [address] 08/07/2023 8:00 AM EST Office Visit Hematology/Oncology [facility] [place] [address] [place] [phone] Hannah Guillory CRNP [address] [place] [place] [address] 08/07/2023 8:30 AM EST Hem/Onc Treatment Hematology/Oncology Treatment, [place] [facility] [phone] [place], Chair 7 Hem Onc Scenery [address] [place] [address] 08/08/2023 9:00 AM EST Office Visit General Surgery, [facility] 132 [facility] [place] [address] Kin Stubbs MD 132 [facility] [place] [address] 08/15/2023 12:00 PM EDT Laboratory Laboratory [facility] [place] [address] [place] [phone] [place], Lab Scenery [address] [facility] BY [facility] [place] [address] 08/15/2023 1:00 PM EDT Hem/Onc Treatment Hematology/Oncology Treatment, [place] [facility] [phone] [place], Chair 5 Hem Onc Scenery [address] [place] [address] 08/21/2023 10:50 AM EDT Office Visit [address] [address] Mary Calderón, DO [address] [facility], [place] [address] 08/30/2023 9:00 AM EDT Scheduled Telephone Palliative Medicine, [facility] 400 [facility] 5th Floor [place] [address] [place], Nurse Palliative Medicine [facility] 5th 400 [facility] [address] 01/22/2024 8:00 AM EDT Office Visit Gastroenterology, [facility] [address] [place] [address] Kacey Cárdenas CRNP [address] [place] [address] Scheduled Procedures Name Priority Associated Diagnoses Date/Ti [...] this encounter Medical Devices Implanted Type Area Dental Instrument Maker Device Identifier Shelf Expiration Date Model / Serial / Lot Port 8fr 1lumen Infusion St Latexfree Power Implantable - [id number] Implanted:Qty: 1 on 07/07/2023 by Acosta Mathur MD at OR [facility] Left: Chest CR BARD : PERIPHERAL VASCULAR [id number] 05/04/2024 [id number] / / [id number] documented as of this encounter Advance Directives Documents on File Type Date Recorded Patient Wastewater Treatment Engineer Expl 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 Question Answer Comments Discussion of Advance Directives occurred with: Patient Care Teams Administrative Services Director Relationship Specialty Start Date End Date Lenora Harding MD [address] [place] [address] PCP - General Family Medicine 12/31/21 documented as of this encounter
--- OUTSIDE RECORDS SUMMARY | 2023-09-17 15:11 | External Medical Summary | Summary of Care ---
Author Name Unknown Organization [facility] Address [address] [place] [address] Phone [phone] Care Team Providers Care Pallet Rectifier Name Role Phone Lenora Harding MD Primary Care Provid er Reason for Visit * Reason Onset Date Comments Appointment 08/03/2023 Gastro referral Encounter Details Date Type Department Care Team ([facility] st Contact Info) Description 08/03/2023 Telephone [facility] [address] [place] [address] Lenora Harding MD [address] [place] [address] Appointment (Gastro referral) Allergies No [...] Oral Tablet (Lopressor)Indication s:Coronary artery disease involving [place] heart, unspecified vessel or lesion type, unspecified [...] Next Due Pneumococcal Conjugate Vacci ne, 20-valent ([id number]) 06/03/2023(Deferred: Patient Refused) Seasonal Influenza, PF, 6 [...] PM EST I reviewed his imaging at [facility] and I suspect his cholecystitis [...] for EUS next week with me at [facility]. * Telephone Encounter - Inga Sandra [...] He is not willing to go to [place]. Please advise. 08/03/2023 documented in this encounter Plan of Treatment Upcoming Encounters Date Type Department Care Team (Latest Contact Info) Description 4 9:00 AM EST Office Visit General Surgery, [facility] [address] [place] [address] Kin Stubbs MD [address] [place] [address] 4 2:00 PM EST Hospital Encounter OR [facility], Operating Room, [facility] - 4th Floor [address] [place] [place] [address] Jayashree Alston MD 132 [place] [address] 4 2:00 PM EST - 4 2:44 PM EST Surgery OR [facility], Operating Room, [facility] - 4th Floor [address] [place] [address] Jayashree Alston MD 132 [place] [address] ESOPHAGOGASTRODUODENOSCOPY (EGD), FLEXIBLE, TRANSORAL, ENDOSCOPIC ULTRASOUND 4 12:00 PM EDT Laboratory Laboratory Sc[address] [place] [address] [place] [phone] [place], Lab Scenery [address] [place] [place] [address] 4 1:00 PM EDT Hem/Onc Treatment Hematology/Onco logy Treatment, [place] [address] [place] [phone] [place], Chair 5 Hem Onc Scenery [address] [place] [address] 4 10:50 AM EDT Office Visit [facility] [address] [facility], [place] [phone] Mary Calderón DO [address] [place] [facility] [address] 4 9:00 AM EDT Scheduled Telephone Palliative Medicine, [facility] 400 [facility] 5th Floor [place] [address] [place], Nurse Palliative Medicine [facility] 5th 400 [place] [address] 4 8:00 AM EDT Office Visit Gastroenterolog y, [facility] [address] [place] [address] Kacey Cárdenas CRNP [address] [place] [address] Scheduled Procedures Name Priority Associated Diagnoses Date/Ti [...] this encounter Medical Devices Implanted Type Area Pump Assembler Device Identifier Shelf Expiration Date Model / Serial / Lot Port 8fr 1lumen Infusion St Latexfree Power Implantable - [id number] Implanted:Qty: 1 on 07/07/2023 by Acosta Mathur MD at [facility] Left: Chest CR BARD : PERIPHERAL VASCULAR [id number] 05/04/2024 [id number] / / [id number] documented as of this encounter Advance Directives Documents on File Type Date Recorded Patient [employer] Fitness Instructor Expl 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 Question Answer Comments Discussion of Advance Directives occurred with: Patient Care Teams Pallet Rectifier Relationship Specialty Start Date End Date Lenora Harding MD [address] [place] [address] PCP - General Family Medicine 12/31/21 documented as of this encounter
--- OUTSIDE RECORDS SUMMARY | 2023-09-17 15:11 | External Medical Summary | Summary of Care ---
Author Name Unknown Organization [facility] Address [address] [place] [address] Phone [phone] Care Team Providers Care Drop Hammer Pile Driver Operator Name Role Phone Lenora Harding MD Primary Care Provid er Reason for Visit * Reason Onset Date Comments Appointment 08/03/2023 Gastro referral Encounter Details Date Type Department Care Team ([facility] st Contact Info) Description 08/03/2023 Telephone [facility] [address] [place] [address] Lenora Harding MD [address] [place] [address] Appointment (Gastro referral) Allergies No [...] Oral Tablet (Lopressor)Indication s:Coronary artery disease involving [place] heart, unspecified vessel or lesion type, unspecified [...] Next Due Pneumococcal Conjugate Vacci ne, 20-valent ([id number]) 06/03/2023(Deferred: Patient Refused) Seasonal Influenza, PF, 6 [...] encounter Miscellaneous Notes * Telephone Encounter - Shira Wang OSA [...] He is not willing to go to [place]. Please advise. 08/03/2023 documented in this encounter Plan of Treatment Upcoming Encounters Date Type Department Care Team (Late st Contact Info) Description 08/07/2023 7:00 AM EST Laboratory [facility] [address] [phone] Grace Reynoso [address] [place] [address] 08/07/2023 8:00 AM EST Office Visit Hematology/Oncology [facility] [address] [phone] Hannah Guillory CRNP 400 [facility] [place] [address] 08/07/2023 8:30 AM EST [facility] [address] [place] [phone] [place], Chair 7 Hem Onc Scenery [address] [place] [address] 08/08/2023 9:00 AM EST Office Visit General Surgery, [facility] [place] [address] Kin Stubbs MD [address] [place] [address] 08/15/2023 12:00 PM EDT Laboratory Laboratory [facility] [place] 200 [facility] [place] [phone] [place], Lab [facility] 200 [facility] [place] [address] 08/15/2023 1:00 PM EDT Hem/Onc Treatment Hematology/Oncology Treatment, [place] 200 [facility], [place] [phone] [place], Chair 5 Hem Onc Scenery 200 [facility] [place] [address] 08/21/2023 10:50 AM EDT Office Visit [facility] [address] [facility], [place] [phone] Mary Calderón, [address] [place] [address] 08/30/2023 9:00 AM EDT Scheduled Telephone Palliative Medicine, [facility] 400 [facility] 5th [place] [address] [place], Nurse Palliative Medicine [facility] 5th [address] [place] [address] 01/22/2024 8:00 AM EDT Office Visit Gastroenterology, [facility] [address] [place] [address] Kacey Cárdenas CRNP [address] [place] [address] Scheduled Procedures Name Priority Associated Diagnoses Date/Ti [...] this encounter Medical Devices Implanted Type Area Division Director Device Identifier Shelf Expiration Date Model / Serial / Lot Port 8fr 1lumen Infusion St Latexfree Power Implantable - [id number] Implanted:Qty: 1 on 07/07/2023 by Acosta Mathur MD at [facility] Left: Chest CR BARD : PERIPHERAL VASCULAR [id number] 05/04/2024 [id number] / / [id number] documented as of this encounter Advance Directives Documents on File Type Date Recorded Patient Stope Miner Expl 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 Question Answer Comments Discussion of Advance Directives occurred with: Patient Care Teams Drop Hammer Pile Driver Operator Relationship Specialty Start Date End Date Lenora Harding MD [address] [place] [address] PCP - General Family Medicine 12/31/21 documented as of this encounter
--- OUTSIDE RECORDS SUMMARY | 2023-09-17 15:11 | External Medical Summary | Summary of Care ---
Author Name Unknown Organization [facility] Address [address] [facility] [place] [place] [address] Phone [phone] Care Team Providers Care Sweater Designer Name Role Phone Lenora Harding MD Primary Care Provid er Reason for Visit * Reason Onset Date Comments Other 08/07/2023 Encounter Details Date Type Department Care Team (Late st Contact Info) Description 08/07/2023 Telephone Hematology/Oncology [facility] [place] 200 [facility] [place] [phone] Ryne Acharya MD 200 [facility] [address] Other Allergies No known active allergiesdocumented as [...] goal of less than 7.0% ([facility]) USE UP TO FOUR TIMES DAILY FOR BLOOD GLUCOSE TESTING 100 Strip 11 03/03/2023 Active metFORMIN HCl ER 500 MG Oral Tablet Extended Release 24 Hour (Glucophage XR)Indications:Type 2 diabetes mellitus with hemoglobin A1c goal of less than 7.0% ([facility]) Take 1 Tablet by mouth in the [...] Oral Tablet (Lopressor)Indication s:Coronary artery disease involving agdaagux heart, unspecified vessel or lesion type, unspecified [...] Next Due Pneumococcal Conjugate Vacci ne, 20-valent ([id number]) 06/03/2023(Deferred: Patient Refused) Seasonal Influenza, PF, 6 [...] needing patient to call their office @ [phone]. Called patient, no answer, LMOM with return # and the # to Gastro's office. documented in this encounter Plan of Treatment Upcoming Encounters Date Type Department Care Team (Latest Contact Info) Description 4 9:00 AM EST Office Visit General Surgery, [facility] [address] [place] [address] Kin Stubbs MD [address] [place] [address] 4 2:00 PM EST Hospital Encounter OR [facility], Operating Room, [facility] - 4th Floor [address] [place] [address] Jayashree Alston MD [address] [place] [address] 4 2:00 PM EST - 4 2:44 PM EST Surgery OR [facility], Operating Room, [facility] - 4th Floor [address] [place] [address] Jayashree Alston MD 132 [place] [address] ESOPHAGOGASTRODUODENOSCOPY (EGD), FLEXIBLE, TRANSORAL, ENDOSCOPIC ULTRASOUND 4 12:00 PM EDT Laboratory [facility] [place] [address] [place], [place] [address] [place], Lab Scenery [address] [facility], [place] [address] 4 1:00 PM EDT Hem/Onc Treatment Hematology/Onco logy Treatment, [place] [address] [place] [phone] [place], Chair 5 Hem Onc Scen[address] [place], [place] [address] 4 10:50 AM EDT Office Visit [place] [address] [place] [phone] Mary Calderón, [address] [place], [place] [address] 4 9:00 AM EDT Scheduled Telephone Palliative Medicine, [facility] 400 [facility] 5th [place] [address] [place], Nurse Palliative Medicine [address] [place], [place] [phone] 4 8:00 AM EDT [facility] [address] [place] [address] Kacey Cárdenas CRNP [address] [place] [address] Scheduled Procedures Name Priority Associated Diagnoses Date/Ti [...] this encounter Medical Devices Implanted Type Area Associate Professor Of Surgery Device Identifier Shelf Expiration Date Model / Serial / Lot Port 8fr 1lumen Infusion St Latexfree Power Implantable - [id number] Implanted:Qty: 1 on 07/07/2023 by Acosta Mathur MD at OR [facility] Left: Chest CR BARD : PERIPHERAL VASCULAR [id number] 05/04/2024 [id number] / / [id number] documented as of this encounter Advance Directives Documents on File Type Date Recorded Patient Commercial Print Salesman Expl 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 Question Answer Comments Discussion of Advance Directives occurred with: Patient Care Teams Sweater Designer Relationship Specialty Start Date End Date Lenora Harding MD [address] [place] [address] PCP - General Family Medicine 12/31/21 documented as of this encounter
--- OUTSIDE RECORDS SUMMARY | 2023-09-17 15:11 | External Medical Summary | Summary of Care ---
Author Name Unknown Organization [facility] Address [address] [place] [address] Phone [phone] Care Team Providers Care Senior Unix Administrator Name Role Phone Lenora Harding MD Primary Care Provid er Reason for Visit * Reason Onset Date Comments Appointment 08/03/2023 Gastro referral Encounter Details Date Type Department Care Team ([facility] st Contact Info) Description 08/03/2023 Telephone [facility] [address] [place] [address] Lenora Harding MD [address] [place] [address] Appointment (Gastro referral) Allergies No [...] Oral Tablet (Lopressor)Indication s:Coronary artery disease involving [place] apache heart, unspecified vessel or lesion type, unspecified [...] Next Due Pneumococcal Conjugate Vacci ne, 20-valent ([id number]) 06/03/2023(Deferred: Patient Refused) Seasonal Influenza, PF, 6 [...] PM EST I reviewed his imaging at [facility] and I suspect his cholecystitis is from [...] for EUS next week with me at [facility]. * Telephone Encounter - Inga Sandra OSA [...] He is not willing to go to [place]. Please advise. 08/03/2023 documented in this encounter Plan of Treatment Upcoming Encounters Date Type Department Care Team (Late st Contact Info) Description 08/07/2023 7:00 AM EST Laboratory Laboratory [facility] [address] [place] [phone] [place] [facility] 200 [facility] [place] [address] 08/07/2023 8:00 AM EST Office Visit Hematology/Oncology [facility] 200 [facility] [place] [phone] Hannah Guillory CRNP 400 [facility] [address] 08/07/2023 8:30 AM EST Hem/Onc Treatment Hematology/Oncology Treatment, [place] [address] [facility] [place] [address] [place], Chair 7 Hem Onc [facility] 200 [facility] [place] [address] 08/08/2023 9:00 AM EST Office Visit General Surgery, [facility] [address] [place] [address] Kin Stubbs MD 132 [facility] [place] [address] 08/15/2023 12:00 PM EDT Laboratory Laboratory [facility] [address] [place] [phone] Grace Reynoso Scenery [address] [place] [address] 08/15/2023 1:00 PM EDT Hem/Onc Treatment Hematology/Oncology Treatment, [place] [address] [place] [phone] [place], Chair 5 Hem Onc Scenery [address] [place] [address] 08/21/2023 10:50 AM EDT Office Visit [facility] [address] [place] [phone] Mary Calderón [address] [place] [address] 08/30/2023 9:00 AM EDT Scheduled Telephone Palliative Medicine, [facility] 400 [facility] 5th [place] [address] [place], Nurse Palliative Medicine [facility] 5th [address] [place] [address] 01/22/2024 8:00 AM EDT Office Visit Gastroenterology, [facility] [place] [address] Kacey Cárdenas CRNP [address] [place] [address] Scheduled Procedures Name Priority Associated Diagnoses Date/Ti [...] this encounter Medical Devices Implanted Type Area Golf Club Manager Device Identifier Shelf Expiration Date Model / Serial / Lot Port 8fr 1lumen Infusion St Latexfree Power Implantable - [id number] Implanted:Qty: 1 on 07/07/2023 by Acosta Mathur MD at OR [facility] Left: Chest CR BARD : PERIPHERAL VASCULAR [id number] 05/04/2024 [id number] / / [id number] documented as of this encounter Advance Directives Documents on File Type Date Recorded Patient Test Kitchen Home Economist Expl 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 Question Answer Comments Discussion of Advance Directives occurred with: Patient Care Teams Senior Unix Administrator Relationship Specialty Start Date End Date Lenora Harding MD [address] [place] [facility] [place] [address] PCP - General Family Medicine 12/31/21 documented as of this encounter
--- OUTSIDE RECORDS SUMMARY | 2023-09-17 15:11 | External Medical Summary | Summary of Care ---
Author Name Unknown Organization [facility] Address [address] [facility] [place] [address] Phone [phone] Care Team Providers Care Patient Escort Name Role Phone Lenora Harding MD Primary Care Provid er Reason for Visit * Reason Comments Outpatient Testing Encounter Details Date Type Department Care Team (Late st Contact Info) Description 08/07/2023 7:00 AM EST Laboratory Laboratory Scenery [facility] [address] [place] [phone] [place], Lab Scenery [address] [place] [address] Pancreatic cancer metastasized to liver (HCC) Allergies [...] A1c goal of less than 7.0% ([facility]) USE UP TO FOUR TIMES DAILY FOR BLOOD GLUCOSE TESTING 100 Strip 11 03/03/2023 Active metFORMIN HCl ER 500 MG Oral Tablet Extended Release 24 Hour (Glucophage XR)Indications:Type 2 diabetes mellitus with hemoglobin A1c goal of less than 7.0% ([facility]) Take 1 Tablet by mouth in [...] Oral Tablet (Lopressor)Indication s:Coronary artery disease involving [place] heart, unspecified vessel or lesion type, unspecified [...] Next Due Pneumococcal Conjugate Vacci ne, 20-valent ([id number]) 06/03/2023(Deferred: Patient Refused) Seasonal Influenza, PF, 6 [...] 7:49 AM EDT Sexual Orientation Straight 09/16/2022 7 :49 AM EDT Job Start Date Occupation Industry Not on file Not on file Not on file documented as of this encounter Plan of Treatment Upcoming Encounters Date Type Department Care Team (Late st Contact Info) Description 08/07/2023 8:00 AM EST Office Visit Hematology/Oncolog y Scenery [place] [address] [place] [phone] Hannah Guillory CRNP [address] [facility] [place] [address] PENDING VISIT DRAFT 08/07/2023 8:30 AM EST Hem/Onc Treatment Hematology/Oncolog y Treatment, [place] 200 [facility] [address] [place] [phone] [place], Chair 7 Hem Onc Scenery [address] [place] [address] Arrived 08/08/2023 9:00 AM EST Office Visit General Surgery, [facility] 132 [facility] [place] [address] Kin Stubbs MD 132 [facility] [place] [address] 08/15/2023 12:00 PM EDT Laboratory Laboratory [facility] [place] [address] [place] [phone] [place], Lab J[place] [address] [facility] [place] [address] 08/15/2023 1:00 PM EDT Hem/Onc Treatment Hematology/Oncolog y Treatment, [place] 200 [facility] [place] [phone] [place], Chair 5 Hem Onc Scenery [address] [place] [address] 08/21/2023 10:50 AM EDT Office Visit Family [facility], [place] [address] [facility], [place] [phone] Mary Calderón DO [address] [facility], [place] [address] 08/30/2023 9:00 AM EDT Scheduled Telephone Palliative Medicine, [facility] [address] [facility] 5th Floor [place] [address] [place], Nurse Palliative Medicine [facility] 5th 400 [facility] [address] 01/22/2024 8:00 AM EDT Office Visit Gastroenterology, [facility] [place] [address] Kacey Cárdenas CRNP [address] [place] [address] Pending Results Name Type Priority Associated Diagnoses Date /Time CBC WITH WBC DIFFERENTIAL Lab STAT Pancreatic cancer metastasized to liver (HCC) 08/07/2023 7:39 AM EST COMPREHENSIVE METABOLIC PANEL Lab STAT Pancreatic cancer metastasized to liver (HCC) 08/07/2023 7:39 AM EST CA 19-9 Lab STAT Pancreatic cancer metastasized to liver (HCC) 08/07/2023 7:39 AM EST CBC Lab STAT Pancreatic cancer metastasized to liver (HCC) 08/07/2023 7:39 AM EST DIFFERENTIAL, AUTOMATED Lab STAT Pancreatic cancer metastasized to liver (HCC) 08/07/2023 7:39 AM EST Scheduled Procedures Name Priority Associated [...] this encounter Medical Devices Implanted Type Area Outsole Beveler Device Identifier Shelf Expiration Date Model / Serial / Lot Port 8fr 1lumen Infusion St Latexfree Power Implantable - [id number] Implanted:Qty: 1 on 07/07/2023 by Acosta Mathur MD at [facility] Left: Chest CR BARD : PERIPHERAL VASCULAR [id number] 05/04/2024 [id number] / / [id number] documented as of this encounter Visit Diagnoses Diagnosis Pancreatic cancer metastasized to liver (HCC) Malignant neoplasm of pancreas, part unspecified documented in this encounter Advance Directives Documents on File Type Date Recorded Patient Food Scientist Expl 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 Question Answer Comments Discussion of Advance Directives occurred with: Patient Care Teams Patient Escort Relationship Specialty Start Date End Date Lenora Harding MD [address] [place] [address] PCP - General Family Medicine 12/31/21 documented as of this encounter
--- OUTSIDE RECORDS SUMMARY | 2023-09-17 15:11 | External Medical Summary | Summary of Care ---
Author Name Unknown Organization [facility] Address [address] [place] [address] Phone [phone] Care Team Providers Care Anode Worker Name Role Phone Lenora Harding MD Primary Care Provid er Reason for Visit * Reason Onset Date Comments Appointment 08/03/2023 Gastro referral Encounter Details Date Type Department Care Team ([facility] st Contact Info) Description 08/03/2023 Telephone [facility] [address] [place] [address] Lenora Harding MD [address] [place] [address] Appointment (Gastro referral) Allergies No [...] Oral Tablet (Lopressor)Indication s:Coronary artery disease involving [place] heart, unspecified vessel or lesion type, unspecified [...] Next Due Pneumococcal Conjugate Vacci ne, 20-valent ([id number]) 06/03/2023(Deferred: Patient Refused) Seasonal Influenza, PF, 6 [...] EST I reviewed his imaging at [facility] and I suspect his cholecystitis is [...] for EUS next week with me at [facility]. * Telephone Encounter - Inga Sandra [...] He is not willing to go to [place]. Please advise. 08/03/2023 documented in this encounter Plan of Treatment Upcoming Encounters Date Type Department Care Team (Late st Contact Info) Description 08/07/2023 7:00 AM EST Laboratory Laboratory [facility] 200 [facility] [place] [phone] [place], Lab [facility] 200 [facility] [place] [address] 08/07/2023 8:00 AM EST Office Visit Hematology/Oncology [facility] [place] 200 [facility] [place] [address] Hannah Guillory CRNP [address] [facility] [place] [address] 08/07/2023 8:30 AM EST Hem/Onc Treatment Hematology/Oncology Treatment, [place] [address] [place] [phone] [place] Chair 7 Hem Onc [facility] 200 [facility] [place] [address] 08/08/2023 9:00 AM EST Office Visit General Surgery, [facility] [address] [place] [address] Kin Stubbs MD [address] [place] [address] 08/15/2023 12:00 PM EDT Laboratory Laboratory [facility] [address] [place] [address] [place], Lab Scenery [address] [place] [address] 08/15/2023 1:00 PM EDT Hem/Onc Treatment Hematology/Oncology Treatment, [place] [address] [place] [address] [place], Chair 5 Hem Onc Scenery [address] [place] [address] 08/21/2023 10:50 AM EDT Office Visit Family [facility] [address] [place] [phone] Mary Calderón, [address] [place] [address] 08/30/2023 9:00 AM EDT Scheduled Telephone Palliative Medicine, [facility] [address] [facility] 5th [place] [address] [place], Nurse Palliative Medicine [address] [place] [address] 01/22/2024 8:00 AM EDT Office Visit Gastroenterology, [facility] [address] [place] [address] Kacey Cárdenas CRNP [address] [place] [address] Scheduled Procedures Name Priority Associated Diagnoses Date/Ti [...] this encounter Medical Devices Implanted Type Area Senior Technical Support Engineer Device Identifier Shelf Expiration Date Model / Serial / Lot Port 8fr 1lumen Infusion St Latexfree Power Implantable - [id number] Implanted:Qty: 1 on 07/07/2023 by Acosta Mathur MD at OR [facility] Left: Chest CR BARD : PERIPHERAL VASCULAR [id number] 05/04/2024 [id number] / / [id number] documented as of this encounter Advance Directives Documents on File Type Date Recorded Patient Whale Fisherman Expl 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 Question Answer Comments Discussion of Advance Directives occurred with: Patient Care Teams Anode Worker Relationship Specialty Start Date End Date Lenora Harding MD [address] [place] [address] PCP - General Family Medicine 12/31/21 documented as of this encounter
--- OUTSIDE RECORDS SUMMARY | 2023-09-17 15:12 | External Medical Summary | Summary of Care ---
Author Name Unknown Organization [facility] Address [address] [place] [address] Phone [phone] Care Team Providers Care Lumber Press Operator Name Role Phone Lenora Harding MD Primary Care Provid er Reason for Visit * Reason Onset Date Comments Hospital Follow-Up 08/01/2023 YOBANI Encounter Details Date Type Department Care Team (Late st Contact Info) Description 08/01/[address] [facility] [address] [place] [address] Shari Velásquez, [facility] Hospital Follow-Up (YOBANI) Allergies No known active allergiesdocumented as of this encounter (statuses as of 08/02/2023) Medications Medication Sig Dispensed Refills Start Date [...] of less than 7.0% ([facility]) USE UP TO FOUR TIMES DAILY FOR BLOOD GLUCOSE TESTING 100 Strip 11 03/03/2023 Active metFORMIN HCl ER 500 MG Oral Tablet Extended Release 24 Hour (Glucophage XR)Indications:Type 2 diabetes mellitus with hemoglobin A1c goal of less than 7.0% ([facility]) Take 1 Tablet by mouth in [...] Oral Tablet (Lopressor)Indication s:Coronary artery disease involving [place] heart, unspecified vessel or lesion type, unspecified [...] a meal.. 90 Tablet 3 07/25/2023 Active documented as of this encounter (statuses as of 08/02/2023) Active Problems Problem Noted Date Diagnosed Date [...] as of this encounter (statuses as of 08/02/2023) Resolved Problems Problem Noted Date Diagnosed Date [...] as of this encounter (statuses as of 08/02/2023) Immunizations Name Administration Dates Next Due Pneumococcal Conjugate Vacci ne, 20-valent ([id number]) 06/03/2023(Deferred: Patient Refused) Seasonal Influenza, PF, 6 [...] encounter Miscellaneous Notes * Telephone Encounter - Shari Velásquez RN - 08/01/2023 2:29 PM EST Transitions of Care Note Reason for Referral:Recent Admission Phone visit for follow up: YOBANI #1 Admitted to: [facility], Date: 07/28/2023 Discharged to: Home, Date: 07/31/2023 Diagnosis driving hospitalization: Acute Cholecystitis, Colitis, Metastatic Pancreatic Cancer, Acute on Chronic Normocytic Anemia Attempted YOBANI - no answer. Left message to return call [phone] or . Shari Velásquez RN Transitions of Care Note Reason for Referral:Recent Admission Phone visit for follow up: YOBANI #2 Admitted to: [facility], Date: 07/28/2023 Discharged to: Home, Date: 07/31/2023 Diagnosis driving hospitalization: Acute Cholecystitis, Colitis, Metastatic Pancreatic Cancer, Acute on Chronic Normocytic Anemia Attempted YOBANI - no answer. Left message to return call [phone] or . Shari Velásquez RN documented in this encounter Plan of Treatment Upcoming Encounters Date Type Department Care Team (Late st Contact Info) Description 08/03/2023 9:40 AM EST Office Visit [facility] [address] [place] [phone] Asad Newsome MD [address] [place] [address] 08/07/2023 7:00 AM EST Laboratory Laboratory [facility] [place] [address] [place] [phone] [facility] Lab [facility] [address] [place] [address] 08/07/2023 8:00 AM EST Office Visit Hematology/Oncology [facility] [place] [address] [place] [phone] Hannah Guillory CRNP [address] [place] [address] [place] [address] 08/07/2023 8:30 AM EST Hem/Onc Treatment Hematology/Oncology Treatment, [place] 200 [facility], [place] [phone] [place], Chair 7 Hem Onc Scenery [address] [place], [place] [address] 08/15/2023 12:00 PM EDT Laboratory Laboratory Scenery [place] [address] [place] [phone] [place], Lab Scenery [address] [place], [place] [address] 08/15/2023 1:00 PM EDT Hem[facility] 200 [facility], [place] [phone] [place], Chair 5 Hem Onc Scenery [address] [place] [address] 08/21/2023 10:50 AM EDT Office Visit [facility] [address] [place] [address] Mary Calderón, [address] [place] [address] 08/30/2023 9:00 AM EDT Scheduled Telephone Palliative Medicine, [facility] 400 [facility] 5th [place] [address] [place], Nurse Palliative Medicine [facility] 5th 400 [place] [address] Scheduled Procedures Name Priority Associated Diagnoses Date/Ti [...] this encounter Medical Devices Implanted Type Area Derrick Boat Runner Device Identifier Shelf Expiration Date Model / Serial / Lot Port 8fr 1lumen Infusion St Latexfree Power Implantable - [id number] Implanted:Qty: 1 on 07/07/2023 by Acosta Mathur MD at [facility] Left: Chest CR BARD : PERIPHERAL VASCULAR [id number] 05/04/2024 [id number] / / [id number] documented as of this encounter Advance Directives Latest Code Status on File Code Status Date Activated Date Inactivated Comments Full Code 05/30/2023 10:13 PM 06/03/2023 2:34 PM Th is order reflects the patients wishes and were consensually agreed upon. Question Answer Comments Discussion of Advance Directives occurred with: Patient Care Teams Lumber Press Operator Relationship Specialty Start Date End Date Lenora Harding MD [address] [place] [address] PCP - General Family Medicine 12/31/21 documented as of this encounter
--- OUTSIDE RECORDS SUMMARY | 2023-09-17 15:12 | External Medical Summary | Summary of Care ---
Author Name Unknown Organization [facility] Address [address] [place] [facility] [place] [address] Phone [phone] Care Team Providers Care Hat Cutter Name Role Phone Lenora Harding MD Primary Care Provid er Reason for Visit * Reason Onset Date Comments Advice 07/28/2023 Encounter Details Date Type Department Care Team (Late st Contact Info) Description 07/28/2023 Telephone Hematology/Oncology [facility] [place] 200 [facility] [place] [phone] Ryne Acharya MD 200 [facility] [address] Advice Allergies No known active allergiesdocumented as of this encounter (statuses as of 07/28/2023) Medications Medication Sig Dispensed Refills Start Date [...] hemoglobin A1c goal of less than 7.0% ([facility]) USE UP TO FOUR TIMES DAILY FOR BLOOD GLUCOSE TESTING 100 Strip 11 03/03/2023 Active metFORMIN HCl ER 500 MG Oral Tablet Extended Release 24 Hour (Glucophage XR)Indications:Type 2 diabetes mellitus with hemoglobin A1c goal of less than 7.0% ([facility]) Take 1 Tablet by mouth in the [...] Oral Tablet (Lopressor)Indication s:Coronary artery disease involving [place] heart, unspecified vessel or lesion type, unspecified [...] as of this encounter (statuses as of 07/28/2023) Active Problems Problem Noted Date Diagnosed Date [...] as of this encounter (statuses as of 07/28/2023) Resolved Problems Problem Noted Date Diagnosed Date [...] as of this encounter (statuses as of 07/28/2023) Immunizations Name Administration Dates Next Due Pneumococcal Conjugate Vacci ne, 20-valent ([id number]) 06/03/2023(Deferred: Patient Refused) Seasonal Influenza, PF, 6 [...] Telephone Encounter - Keegan Lopez RN - 07/28/2023 3:37 PM EST Pt called nurse triage line 07/27/23 for profuse vomiting. Pt is s/p Gemzar/Abraxane Cycle 1. treatment on 07/25. Per note, patient tried both Zofran and Compazine and neither helped with vomiting. Presented to [facility] ED 07/27 - CT A/P done showing ? Colitis and ? Cholecystitis - GI and Gen Surg following. Dr. Acharya - JILLIAN regarding patient status. Completed his first cycle of Gemzar/Abraxane with 1 week hold d/t worsening anemia. Pt Hgb during admission as follows: : 8.1 --> 7.6 --> 7.5 --> 7.2 --> 7.3 documented in this encounter Plan of Treatment Upcoming Encounters Date Type Department Care Team (Late st Contact Info) Description 08/02/2023 1:00 PM EST Office Visit Palliative Medicine [address] [phone] Nithya Ferreira MD 400 [facility] [place] [address] 08/07/2023 7:00 AM EST Laboratory Laboratory [address] [place] [address] [facility] [address] [place] [address] 08/07/2023 8:00 AM EST Office Visit Hematology/Oncology [address] [place] [phone] Hannah Guillory CRNP [address] [place] [address] 08/07/2023 8:30 AM EST Hem/Onc Treatment Hematology/Oncology Treatment, [address] [place] [phone] [place], Chair 7 Hem Onc Scenery 200 [facility] [place], [place] [address] 08/15/2023 12:00 PM EDT Laboratory Laboratory [facility] [place] [address] [place] [phone] [place], Lab [facility] 200 [facility] [place], [place] [address] 08/15/2023 1:00 PM EDT Hem[facility] 200 [facility], [place] [phone] [place], Chair 5 Hem Onc Scenery 200 [facility] [place], [place] [address] 08/21/2023 10:50 AM EDT Office Visit [facility] [address] [place] [phone] Mary Calderón, [address] [place], [place] [phone] Scheduled Procedures Name Priority Associated Diagnoses Date/Ti [...] this encounter Medical Devices Implanted Type Area Quad Stayer Device Identifier Shelf Expiration Date Model / Serial / Lot Port 8fr 1lumen Infusion St Latexfree Power Implantable - [id number] Implanted:Qty: 1 on 07/07/2023 by Acosta Mathur MD at [facility] Left: Chest CR BARD : PERIPHERAL VASCULAR [id number] 05/04/2024 [id number] / / [id number] documented as of this encounter Advance Directives Latest Code Status on File Code Status Date Activated Date Inactivated Comments Full Code 05/30/2023 10:13 PM 06/03/2023 2:34 PM Th is order reflects the patients wishes and were consensually agreed upon. Question Answer Comments Discussion of Advance Directives occurred with: Patient Care Teams Hat Cutter Relationship Specialty Start Date End Date Lenora Harding MD [address] [facility] [place] [address] PCP - General Family Medicine 12/31/21 documented as of this encounter
--- OUTSIDE RECORDS SUMMARY | 2023-09-17 15:12 | External Medical Summary | Summary of Care ---
Author Name Unknown Organization [facility] Address [address] [place] [address] Phone [phone] Care Team Providers Care Waste Paper Hammermill Operator Name Role Phone Lenora Harding MD Primary Care Provid er Reason for Referral * Evaluate & Treat - Unlimited Visits (Within 30 days (routine)) - Pending Review Specialty Diagnoses / Procedures Referred By Yury brito Referred To Contact Gastroenterology Diagnoses Cholecystitis, acute Pancreatic cancer metastasized to liver (HCC) Asad Newsome MD [address] [place] [address] Referral ID Status Reason Start Date Expiration Date Visits Requested Visits Authorized [id number] Pending Review Specialty Services Required 08/03/2023 [id number] Question Answer Referral Priority Within 30 days (routine) Where should this appointment be scheduled? [facility] For what condition is the patient being referred? All Gastro Conditions Comments Pt with metastatic pancreatic cancer. Recent hospitalization with acute cholecystitis. May need percutaneous drainage gall bladder * Evaluate & Treat - Unlimited Visits (Within 30 days (routine)) - Pending Review Specialty Diagnoses / Procedures Referred By Yury brito Referred To Contact General Surgery Diagnoses Cholecystitis, acute Asad Newsome MD [address] [place] [address] Eduardo Ernst MD [address] [place] [address] [place] [address] Referral ID Status Reason Start Date Expiration Date Visits Requested Visits Authorized [id number] Pending Review Second Opinion 08/03/[phone] Question Answer Referral Priority Within 30 days (routine) Where should this appointment be scheduled? [facility] What condition is the patient being seen for? General Surgery Conditions What condition is the patient being seen for? Gallbladder Comments hX PANCREATIC CANCER - metastatic Reason for Visit * Reason Comments Hospital Follow-Up Patient is here toda y for a hospital follow up. Patient states no concerns. Patient is here today with . Encounter Details Date Type Department Care Team (Late st Contact Info) Description 08/03/2023 9:40 AM EST Office Visit [facility] [address] [place] [address] Asad Newsome MD [address] [place] [address] Cholecystitis, acute*; Pancreatic cancer metastasized to liver (HCC) Allergies [...] A1c goal of less than 7.0% ([facility]) Take 1 Tablet by mouth in the [...] Oral Tablet (Lopressor)Indication s:Coronary artery disease involving sun'aq heart, unspecified vessel or lesion type, unspecified [...] Next Due Pneumococcal Conjugate Vacci ne, 20-valent ([id number]) 06/03/2023(Deferred: Patient Refused) Seasonal Influenza, PF, 6 [...] Sign Reading Time Taken Comments Blood Pressure 138/92 08/03/2023 9:49 AM EST Pulse 94 08/03/2023 9:49 AM EST Temperature 36.6 C (97.8 F) 08/03/2023 9:49 AM ES T Respiratory Rate 16 08/03/2023 9:49 AM EST Oxygen Saturation 96% 08/03/2023 9:49 AM EST Inhaled Oxygen Concentration - - Weight 85.3 kg (188 lb) 08/03/2023 9:49 AM EST Height - - Body Mass Index 26.98 05/30/2023 9:33 PM EST documented in this encounter Progress Notes * Asad Newsome MD - 08/03/2023 10:25 AM EST Subjective: Demar Ocampo is a 58 year old male. Chief Complaint Patient presents with Hospital Follow-Up Patient is here today for a hospital follow up. Patient states no concerns. Patient is here today with . HPI: 58-year-old seen today in follow-up after recent [facility] hospitalization July 28 to July 31. Patient has a known history of metastatic pancreatic cancer. Also has suffered a stroke with left hemiparesis 2016. He has done 2 rounds of chemotherapy and actually scheduled for his 3rd on August 06. He developed abdominal discomfort in overwhelming nausea and vomiting bilious material and for that reason he presented to [facility] ER and subsequently was admitted. CT scan of the abdomen showed changes consistent with acute cholecystitis. He was noted to have a stent in the bile duct. He wasstarted initially on IV Zosyn then switch to oral Augmentin. Did see General Surgery and GI during the hospitalization. I believe there was attempt to be non aggressive with the gallbladder and to try to avoid surgical intervention. He responded to initially IV antibiotic and then oral antibiotic and thus it was felt that he could be discharged to home. Other issues included anemia. His hemoglobin dropped to a low of 6.7. He received 2 units packed red blood cells and at discharge his hemoglobin was 8.7. He was placed on Protonix 40 mg twice a day. Also Carafate. He was discharged to home with instructions to have follow-up with General Surgery (Dr. Ernst) in 3-4 weeks' time and with Gastroenterology (Dr. Mccullough) in 3-4 weeks. He has appointment with Oncology August 06 2 include his next chemotherapy. He was given 10 days of Augmentin 875 mg twice daily. Also 10 days of sucralfate using 4 times a day. He was placed on Protonix 40 mg twice daily. And he was to return to his Lantus 8 units a day. Heis to use either MiraLax or Senokot S as needed for constipation. Patient Active Problem List Diagnosis Code Hypertension [...] FOR BLOOD GLUCOSE TESTING 100 Strip 11 Baclofen 10 MG Oral Tablet (Lioresal) TAKE [...] mouth in the morning. 90 Tablet 1 BOTOX 100 units injection every 12 weeks. (Patient not taking: Reported on 08/02/2023) metFORMIN HCl ER 500 MG Oral Tablet Extended Release 24 Hour (Glucophage XR) Take 1 Tablet by mouthin the morning and 1 Tablet before bedtime. (Patient not taking: Reported on 08/03/2023) 180 Tablet 3 Ondansetron HCl 8 MG Oral Tablet (Zofran) [...] taking: Reported on 07/07/2023) 30 g 1 glipiZIDE ER 2.5 MG Oral Tablet Extended Release 24 Hour (glipiZIDE XL) Take 1 Tablet by mouth in the morning. 30 minutes before a meal.. (Patient not taking: Reported on 08/03/2023) 90 Tablet 3 No current facility-administered medications for this visit. Review of patient's allergies indicates: No Known Allergies Objective: BP 138/92 | Pulse 94 | Temp 36.6 C (97.8 F) (Tympanic) | Resp 16 | Wt 85.3 kg (188 lb) | SpO2 96% | BMI 26.98 kg/m | BSA 2.05 m Physical Exam: CONST: alert, pleasant, no acute distress HEAD: normocephalic, atraumatic Eyes - PERRLA, EOM'I OROPHARYNX: clear, no swelling or erythema, moist CV: regular rate and rhythm, no murmur CHEST: clear to auscultation bilaterally, no rales or wheezing ABD: soft, non tender, non distended, no masses or hepatosplenomegaly EXT: no edema, no joint swelling or deformities, NEURO: Left-sided hemiparesis MENTAL STATUS: no evidence of thought disorder, no delusional thought, no evidence of paranoia, thought is non-tangential. ASSESSMENT/PLAN: Cholecystitis, acute (Primary) - SURGERY REFERRAL OP-to be seen in 3-4 weeks' time. New General Surgery on board in case patient has recurrence of acute cholecystitis. - ADULT GASTROENTEROLOGY REFERRAL OP-to be seen in 3-4 weeks' time. Need GI on board as patient mayneed additional endoscopy Um if his hemoglobin drops again. Also patient might need percutaneous drainage of gallbladder. Pancreatic cancer metastasized to liver (HCC) - ADULT GASTROENTEROLOGY REFERRAL OP Since patient is being seen in 5 days time, I am not going to repeat blood work today as he will have it when he sees Hematology. Gastroesophageal reflux-patient will be maintained on Protonix 40 mg twice daily at least for 1 month. Maybe a bit to decrease dose after that. New script sent to patient's pharmacy-[facility]. Asad Newsome MD * Cathryn Galicia LPN - 08/03/2023 9:54 AM EST Sugar readings: 07/24 AM 160 PM 318 02-20 AM 163 PM 189 02/ AM 159 PM 226 02- PM 207 02- AM 137 PM 271 02- AM 150 PM 235 - AM 135 documented in this encounter Nursing Notes * Cathryn Galicia LPN - 08/03/2023 9:54 AM EST The patient has been properly identified by confirmation of name and date of . Chief Complaint Patient presents with Hospital Follow-Up Patient is here today for a hospital follow up. Patient states no concerns. Patient is here today with . documented in this encounter Plan of Treatment Upcoming Encounters Date Type Department Care Team (Late st Contact Info) Description 08/07/2023 7:00 AM EST Laboratory Laboratory [facility] [place] [address] [facility] [place] [address] [place] [facility] [address] [facility] [place] [address] 08/07/2023 8:00 AM EST Office Visit Hematology/Oncology [facility] [place] [address] [facility] [place] [phone] Hannah Guillory CRNP [address] [facility] [place] [address] 08/07/2023 8:30 AM EST Hem/Onc Treatment Hematology/Oncology [facility] [address] [place] [phone] [place] Chair 7 Hem Onc [facility] [address] [place] [address] 08/08/2023 9:00 AM EST Office Visit General Surgery, [facility] [address] [place] [address] Kin Stubbs MD [address] [place] [address] 08/15/2023 12:00 PM EDT Laboratory Laboratory [facility] [place] [address] [place] [address] [place], Lab Scenery [address] [facility] [place] [address] 08/15/2023 1:00 PM EDT Hem/Onc Treatment Hematology/Oncology Treatment, [place] [address] [place] [phone] [place], Chair 5 Hem Onc [address] [facility] [place] [address] 08/21/2023 10:50 AM EDT Office Visit [facility] [address] [place] [phone] Mary Calderón, [address] [place] [address] 08/30/2023 9:00 AM EDT Scheduled Telephone Palliative Medicine, [facility] [address] [facility] 5th [place] [address] Hi, Nurse Palliative Medicine [address] [place] [address] 01/22/2024 8:00 AM EDT Office Visit Gastroenterology, [facility] [address] [place] [address] Kacey Cárdenas CRNP [address] [place] [address] Scheduled Procedures Name Priority Associated Diagnoses Date/Ti me COLONOSCOPY FLEXIBLE PROXIMAL DIAGNOSTIC Recall History of colon polyps Scheduled Referrals Name Type Priority Associated Diagnoses Orde r Schedule SURGERY REFERRAL OP Referral Within 30 da ys (routine) Cholecystitis, acute Ordered: 08/03/2023 ADULT GASTROENTEROLOGY REFERRAL OP Referral Within 30 days (routine) Cholecystitis, acute Pancreatic cancer metastasized to liver (HCC) Ordered: 08/03/2023 Health Maintenance Due Date Last [...] this encounter Medical Devices Implanted Type Area Rat Trapper Device Identifier Shelf Expiration Date Model / Serial / Lot Port 8fr 1lumen Infusion St Latexfree Power Implantable - [id number] Implanted:Qty: 1 on 07/07/2023 by Acosta Mathur MD at OR [facility] Left: Chest CR BARD : PERIPHERAL VASCULAR [id number] 05/04/2024 [id number] / / [id number] documented as of this encounter Visit Diagnoses Diagnosis Cholecystitis, acute- Primary Acute cholecystitis Pancreatic cancer metastasized to liver (HCC) Malignant neoplasm of pancreas, part unspecified documented in this encounter Advance Directives Documents on File Type Date Recorded Patient Agricultural Labor Camp Manager Expl 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 Question Answer Comments Discussion of Advance Directives occurred with: Patient Care Teams Waste Paper Hammermill Operator Relationship Specialty Start Date End Date Lenora Harding MD [address] [place] [address] PCP - General Family Medicine 12/31/21 documented as of this encounter"
--- OUTSIDE RECORDS SUMMARY | 2023-09-17 15:12 | External Medical Summary ---
Author Name Unknown Address Unknown Organization : Laboratory Report Ordering Provider Test Date Status MARIE 07/25/2023 13:22:11 Final Observation Date Value Abnormality Reference (Units ) Status REFERENCE LAB SCANNED REPORT 07/25/2023 13:22:11 RESULT SCAN Final Performing Location
--- OUTSIDE RECORDS SUMMARY | 2023-09-17 15:12 | External Medical Summary | Summary of Care ---
Author Name Unknown Organization [facility] Address [address] [place] [address] Phone [phone] Care Team Providers Care Rehabilitation Specialist Name Role Phone Lenora Harding MD Primary Care Provid er Reason for Referral * Social Care (Within 10 days (routine)) - Pending Review Specialty Diagnoses / Procedures Referred By Yury brito Referred To Contact Line Technician Diagnoses Pancreatic cancer metastasized to liver (HCC) Nithya Ferreira MD [address] [place] [id number] Referral ID Status Reason Start Date Expiration Date Visits Requested Visits Authorized [id number] Pending Review Specialty Services Required 08/02/[phone] Question Answer Referral Priority Within 10 days (routine) Where should this appointment be scheduled? [facility] Role Diesel Engine Tester Referring Reason: Coordinate Cancer Resources Comments Is patient being transitioned from [facility] to Complex Case Management? No Reason for Visit * Reason Comments NEW PATIENT * Evaluate & Treat - Unlimited Visits (Within 30 days (routine)) - Pending Review Specialty Diagnoses / Procedures Referred By Yury brito Referred To Contact Hospice and Palliative Medicine / Palliative Medicine Diagnoses Adenocarcinoma of pancreas, stage 4 (HCC) Pancreatic cancer metastasized to liver (HCC) Lenora Harding MD [address] [place] [id number] Referral ID Status Reason Start Date Expiration Date Visits Requested Visits Authorized [id number] Pending Review Specialty Services Required 06/16/[phone] Encounter Details Date Type Department Care Team (Late st Contact Info) Description 08/02/2023 1:00 PM EST Office Visit Palliative Medicine [facility] [address] [place] [address] Nithya Ferreira MD [address] [place] [address] [place] [address] Pancreatic cancer metastasized to liver (HCC)*; Left hemiplegia (HCC); Palliative care encounter; DNR (do not resuscitate) Allergies No known active allergiesdocumented as of [...] Oral Tablet (Lopressor)Indication s:Coronary artery disease involving mechoopda heart, unspecified vessel or lesion type, unspecified [...] Next Due Pneumococcal Conjugate Vacci ne, 20-valent ([id number]) 06/03/2023(Deferred: Patient Refused) Seasonal Influenza, PF, 6 [...] Sign Reading Time Taken Comments Blood Pressure 170/94 08/02/2023 12:55 PM EST Pulse 95 08/02/2023 12:55 PM EST Temperature 36.1 C (96.9 F) 08/02/2023 12:[address] Respiratory Rate 16 08/02/2023 12:55 PM EST Oxygen Saturation 94% 08/02/2023 12:55 PM EST Inhaled Oxygen Concentration - - Weight 87.1 kg (192 lb) 08/02/2023 12:55 PM EST Height - - Body Mass Index 27.55 05/30/2023 9:33 PM EST documented in this encounter Patient Instructions * Patient Instructions* Jessika Adkins LPN - 08/02/2023 12:49 PM EST Our Palliative Medicine Clinic is available Monday through Monday during business hours, so we are unavailable on weekends and holidays. Please ensure that you request refills early in the week as itmay take 1-2 days for them to be addressed and filled, for authorizations to be approved, or for the pharmacy to order them if needed. You can contact our office at [phone], which is our clinic in [place], or you can message us on Nokter. If you have an emergency outside of these hours, we recommend calling your primary care clinic, Oncology office, or going to the ER if you have a medical emergency. documented in this encounter Progress Notes * Nithya Ferreira MD - 08/02/2023 1:00 PM EST Palliative Medicine Outpatient Consult Note [facility] Palliative Medicine Outreach [address] [place] [address] Name: Demar Ocampo Date: 08/02/2023 Referring Provider: Lenora Harding MD Reason for Consult: Goals of care; Pain and symptom management Patient accompanied by Wiley, history obtained from patient and . HPI: Demar Ocampo is a 58 year old male with a primary diagnosis of pancreatic adenocarcinoma with mets to the liver, w/history of a stroke in 2017 with residual L sided hemiparesis, HTN, diabetes,and others. Was recently admitted to [facility]. Oncology plan is overall for palliative chemotherapy, nochemo or radiation. Overall he feels ok, denies any sx as below. Does want to continue doing chemotherapy at this time. Palliative symptoms: Pain: no Nausea/Vomiting: no Constipation: no Confusion: yes per Somnolence: no Dyspnea: no Mood: yes, feels "disgusted" - hates seeing so many drs Other: None ROS: See HPI. All other systems negative. SHx: Family Support: Well supported by Language: Latvian Lives with: Children: none Prior employment: [employer] PHYSICAL EXAMINATION: Constitutional: BP 170/94 | Pulse 95 | Temp 36.1 C (96.9 F) | Resp 16 | Wt 87.1 kg (192 lb) | SpO2 94% | BMI 27.55 kg/m | BSA 2.07 m , no acute distress breathing ambient air comfortably, in wheelchair HENT: normocephalic, atraumatic. Eyes: anicteric, sclera and conjunctiva normal. Neck: no stridor Chest: normal respiratory effort Abdominal: nondistended Extremities: no edema, no clubbing, no cyanosis Neuro: alert, oriented to person, place, and time Psych: normal mood and flat affect Data Review: External notes reviewed: - Reviewed notes from Dr Acharya, Oncologist, on 06/22/23, plan was for chemo w/Gemcitabine and Abraxane - Reviewed notes from Dr Harding on 06/16/23, who placed referral - Hospital DC summary reviewed - wad admitted for acute cholecystitis Lab / Imaging Results: Hb 8.7 from hospital, borderline low Information obtained from patients for collateral history Discussion with other team members: I discussed patient with Hem Onc nurse Keegan Lopez about his care Decision-making Capacity: Does Patient have Decisional Capacity? yes Does Patient have a Healthcare Agent? Yes, Discussion with Patient & Family: Met with patient and Wiley Introduced role of Outpatient Palliative Medicine team and reviewed symptoms as above. Reviewed patient's/family's understanding of current medical situation. They know he has metastaticcancer and plan is for palliative chemo, which would not get rid of the cancer. He says it would just "keep it contained". They do not need help at home, previously cost them $350 on top of insurance so they dont want it Reviewed what hospice could add but they do not qualify just yet as he is OK doing tx Advanced Care Planning: AD: n/a Asked permission to discuss ACP Reviewed 3 pathways of care - full vs limited vs comfort. He is ok with limited tx for now, but if declines wants to be comfortable. Reviewed CPR and poor success rates in setting of serious illness. He is clear he is a DNR He is ok with LIMITED tx He is ok with abx for comfort Does not want artificial nutrition, ok with IV hydration POLST completed, original given to patient, copy taken to be put into EMR under ACP docs but also scanned into Chart Review --> Scans ASSESSMENT/PLAN: Demar Ocampo is a/an 58 year [...] continue chemotherapy POLST completed, will fax to [facility] as well Will plan for nursing to call him in a month and see how he is Reviewed how if he ever wants to stop, we could get hospice on board. They are aware. Thank you for this consult. We appreciate the opportunity to take part in the care of your patient. Note routed back to referring provider and PCP. Nithya Ferreira MD Palliative Medicine Physician [facility] Office: [phone] 08/02/2023 * Jessika Adkins LPN - 08/02/2023 12:53 PM EST NEW Palliative Visit Here with , Wiley Pain: no pain today Has oxycodone, but only takes 1/2 pill rarely Appetite is OK, but doesn't eat much No N/V Sleeping good Last BM: yesterday. No issues Other issues: documented in this encounter Plan of Treatment Upcoming Encounters Date Type Department Care Team (Late st Contact Info) Description 08/03/2023 9:40 AM EST Office Visit [facility] [address] [place] [address] Asad Newsome MD [address] [place] [address] 08/07/2023 7:00 AM EST Laboratory Laboratory [facility] [place] [address] [place] [address] [place], Lab Scenery [address] [place], [place] [address] 08/07/2023 8:00 AM EST Office Visit Hematology/Oncology [place] [address] [place] [phone] Hannah Guillory, RACE AND SPORTS BOOK WRITER [facility] [address] 08/07/2023 8:30 AM EST Hem/Onc Treatment Hematology/Oncology Treatment, [place] [address] [facility], [place] [address] [place], Chair 7 Hem Onc Scenery [address] [facility] [place] [address] 08/15/2023 12:00 PM EDT Laboratory Laboratory [facility] [place] [address] [place] [phone] [place], Lab Scenery [address] [facility] [place], [place] [address] 08/15/2023 1:00 PM EDT Hem/Onc Treatment Hematology/Oncology Treatment, [place] [address] [facility], [place] [phone] [place], Chair 5 Hem Onc Scenery [address] [facility] [place], [place] [address] 08/21/2023 10:50 AM EDT Office Visit Family [facility] [address] [facility], [place] [phone] Mary Calderón, [address] [facility] [place] [address] 08/30/2023 9:00 AM EDT Scheduled Telephone Palliative Medicine, [address] 5th [place] [address] [place], Nurse Palliative Medicine [facility] 5th [address] [facility] [place] [address] Scheduled Procedures Name Priority Associated Diagnoses Date/Ti me COLONOSCOPY FLEXIBLE PROXIMAL DIAGNOSTIC Recall History of colon polyps Scheduled Referrals Name Type Priority Associated Diagnoses Orde r Schedule POPULATION HEALTH REFERRAL OP Referral Within 10 days (routine) Pancreatic cancer metastasized to liver (HCC) Ordered: 08/02/2023 Health Maintenance Due Date Last Done Comments [...] this encounter Medical Devices Implanted Type Area Asset Protection Associate Device Identifier Shelf Expiration Date Model / Serial / Lot Port 8fr 1lumen Infusion St Latexfree Power Implantable - [id number] Implanted:Qty: 1 on 07/07/2023 by Acosta Mathur MD at [facility] Left: Chest CR BARD : PERIPHERAL VASCULAR [id number] 05/04/2024 [id number] / / [id number] documented as of this encounter Visit Diagnoses Diagnosis Pancreatic cancer metastasized to liver (HCC)- Primary Malignant neoplasm of pancreas, part unspecified Left hemiplegia (HCC) Hemiplegia, unspecified, affecting unspecified side Palliative care encounter Encounter for palliative care DNR (do not resuscitate) Do not resuscitate status documented in this encounter Advance Directives Latest Code Status on File Code Status Date Activated Date Inactivated Comments Full Code 05/30/2023 10:13 PM 06/03/2023 2:34 PM Th is order reflects the patients wishes and were consensually agreed upon. Question Answer Comments Discussion of Advance Directives occurred with: Patient Care Teams Rehabilitation Specialist Relationship Specialty Start Date End Date Lenora Harding MD [address] [place] [address] PCP - General Family Medicine 12/31/21 documented as of this encounter
[2023-09-17] MEDS: SODIUM CHLORIDE 0.9% 1,000 ML IV ONE (15:28)
--- NOTE | 2023-09-17 15:28 | Emergency Department Note ---
Impression & Plan Acute renal failure, Transaminitis, Pancreatic cancer, Ureterolithiasis, Hydronephrosis due to obstruction of ureter, Metastatic disease, Anemia, Lymphopenia ED Provider Note NAME: CONNER FLYNN AGE: 58 SEX: M : 1965 ARRIVES VIA: Ambulance INFORMANT: Patient ED PROVIDER(S): Leonides Geiger MD CHIEF COMPLAINT: Blood in urine, vomiting, lightheadedness/dizziness, generalized weakness. PLAN: Disposition: Admit MEDICAL DECISION MAKING: The patient is a 58-year-old gentleman with a past medical history of metastatic pancreatic cancer, history of CVA with residual left-sided deficits, hypertension, hyperlipidemia, type 2 diabetes who presents to the emergency department via EMS from home with concern for blood in his urine and episodes of vomiting this morning where they suspected blood-tinged emesis. The patient presents in the setting of having chemotherapy treatment 2 days ago. They describe that the patient's mental status is drowsy and somewhat typical after he has his chemotherapy treatments. Without any recent fevers, cough congestion, chest pain or shortness of breath. On my evaluation the patient is mildly somnolent but awake and alert no acute distress, afebrile with stable vital signs. He is a poor historian in setting of his history of CVA. WBC 2.3K with lymphopenia 0.18, H/H 7.2/22.2 decreased from end of July without more recent for comparison and similar to prior range values. Plates within normal limits. Chemistry without metabolic acidosis though creatinine is acutely elevated at 3.2 consistent with acute renal failure with BUN of 37. Bicarbonate is 22 without metabolic acidosis. Lactic acid 1.4 within normal limits. LFTs are elevated and similar to prior with total bili 1.3, direct bilirubin 0.4 and AST, ALT 59 and 55, respectively. Lipase is not elevated. Procalcitonin did result elevated at 7.6 but in the setting of the patient's acute renal failure. UA without convincing evidence of infection. CT of the head negative for acute abnormalities and demonstrates chronic right MCA infarct. CT of the ab pelvis demonstrates bilateral obstructive ureteral stones with moderate right-sided hydroureteronephrosis secondary to obstructing proximal right ureteral calculi measuring up to 10 mm and mild left-sided hydroureteronephrosis secondary to an obstructing 9 mm calculus within the proximal left ureter. Bilateral nephrolithiasis with urinary bladder calculi are also noted. Patient's pancreatic head mass is again described. Similar gallbladder findings noted which had been evaluated on patient's prior admission in July suspected to be related to the patient's metastatic disease and not cholecystitis. Blood cultures obtained. IV ceftriaxone ordered empirically. 2 units of PRBCs with crossed to hold was ordered. Of note, patient had previously received irradiated blood products and given the patient's lymphopenia in the setting of chemotherapy today PRBCs to hold were also irradiated. [facility] the [facility] for [facility]. Given the patient's acute renal failure in the setting of bilateral obstructing ureteral stones case was discussed with urology on-call, Dr. Ortega. Appreciate consultation recommendations. He did discuss recommendations for ureteral stenting given the patient's acute renal failure with the patient's family who did consent for this. Admitting team updated. Further management per admitting team. Triage Nursing notes reviewed and agree them. Prior/external medical records reviewed Vital Signs: reviewed Differential diagnosis: Infection, dehydration, metabolic abnormality, hypo/hyperglycemia, electrolyte disturbance, anemia, hypoxia, cardiac sources, intracerebral event, toxicologic, neurologic, as well as other pathologies. ER treatment provided: See below. Diagnostics interpreted by me: Cardiac Monitoring: An order for continuous cardiac monitoring was placed and demonstrated normal sinus rhythm, 77 bpm, no ectopy. Laboratory studies: See below Imaging studies: See below Consultation(s[facility] on-call HPI: The patient is a 58-year-old gentleman with a past medical history of metastatic pancreatic cancer, history of CVA with residual left-sided deficits, hypertension, hyperlipidemia, type 2 diabetes who presents to the emergency department via EMS from home with concern for blood in his urine and episodes of vomiting this morning where they suspected blood-tinged emesis. The patient presents in the setting of having chemotherapy treatment 2 days ago. They describe that the patient's mental status is drowsy and somewhat typical after he has his chemotherapy treatments. Without any recent fevers, cough congestion, chest pain or shortness of breath. ROS: See above HPI for pertinent positives & negatives. A total of 10 systems reviewed and were otherwise negative. VITALS:See Below PHYSICAL EXAMINATION: GENERAL: Mildly somnolent but awake and alert to voice. Chronically ill- appearing in no acute distress. HENT: Normocephalic, atraumatic. Oropharynx with dry mucous membranes. EYES: Normal conjunctiva. Sclera non-icteric. NECK: Supple. No nuchal rigidity. FROM. No JVD. RESPIRATORY: Clear to auscultation. CARDIAC: Regular rate, normal rhythm. Extremities warm and well perfused. Pulses equal. ABDOMEN: Soft, non-distended. No tenderness to palpation. No rebound or guarding. No masses. MUSCULOSKELETAL: Chest examination reveals no tenderness. The back is symmetrical on inspection without obvious abnormality. There is no CVA tenderness to palpation. No joint edema. LOWER EXTREMITIES: Calves are equal size bilaterally and non-tender. No edema. No discoloration. NEURO: Baseline left-sided weakness in setting of history of CVA> SKIN: No rash or jaundice noted. ED COURSE: Critical Care: I have personally spent greater than 35 minutes of critical care time in the direct management of this patient. This includes bedside care, interpretation of diagnostic studies, and testing, discussion with consultants, patient, and family members, and other required patient management activities. This 35 minutes is in excess of all separately billable procedures. Leonides Geiger MD Past Med/Surg History Medical History DMII (diabetes mellitus, type 2) Anxiety History of tobacco use Focal dystonia Benign meningioma of brain Left hemiplegia Left spastic hemiparesis Adhesive capsulitis of left shoulder 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 Fatty liver Obesity Arteriosclerosis of coronary artery CAD (coronary artery disease) Cerebral atherosclerosis HTN (hypertension) Carotid stenosis, symptomatic, with infarction Hyperlipidemia Surgical History S/P tonsillectomy and adenoidectomy S/P carotid endarterectomy Family History Mother Diabetes Social History Smoking Status: Never smoker Hx Alcohol Use: Yes Alcohol type: beer Alcohol Intake Frequency Comment: 4-5 drinks per day Hx Substance Use: No Preferred Language: Maori Communication Ability: Effective Barrel Builder Required: No Beliefs That Will Affect Care: None marital status: Current Living Situation: Spouse current occupational status: disabled Feels Safe at Home: Yes Assistive Devices: Brace/Splint/Immobilizer, Cane, Walker and Wheelchair Allergies Allergies Allergy/AdvReac Type Severity Reaction Status Date / Time No Known Allergies Allergy Verified 07/27/23 02:56 Home Meds Home Medications Medication Instructions Recorded Confirmed aspirin 81 mg capsule 81 mg PO DAILY 05/29/23 09/17/23 baclofen 10 mg tablet 15 mg PO QID 05/29/23 09/17/23 clopidogrel 75 mg tablet 75 mg PO DAILY 05/29/23 09/17/23 ezetimibe 10 mg tablet 10 mg PO DAILY 05/29/23 09/17/23 fluoxetine 40 mg capsule 40 mg PO DAILY 05/29/23 09/17/23 folic acid 1 mg tablet 1 mg PO DAILY 05/29/23 09/17/23 losartan 50 mg tablet 50 mg PO DAILY 05/29/23 09/17/23 metoprolol tartrate 50 mg tablet 50 mg PO DAILY 05/29/23 09/17/23 thiamine HCl (vitamin B1) 100 mg 100 mg PO DAILY 05/29/23 09/17/23 tablet acetaminophen 500 mg tablet 500 mg PO DIRECTED PRN 07/27/23 09/17/23 (Tylenol Extra Strength) PAIN/FEVER diphenhydramine HCl 25 mg capsule 25 mg PO Q6H PRN Itching 07/27/23 09/17/23 (Benadryl) insulin glargine 100 unit/mL (3 10 unit subcut QAM 07/27/23 09/17/23 mL) subcutaneous pen (Lantus Solostar U-100 Insulin) metformin 500 mg tablet,extended 500 mg PO BID 07/27/23 09/17/23 release 24 hr oxycodone 5 mg tablet 2.5 mg PO Q6H PRN Pain 07/27/23 09/17/23 Previous Rx's Medication Instructions Recorded pantoprazole 40 mg tablet,delayed 40 mg PO BID #60 tabs 07/31/23 release (Protonix) polyethylene glycol 3350 17 gram 17 g PO DAILY PRN constipation #30 07/31/23 oral powder packet (Miralax) ea Results & Data (ED) Vital Signs Vital Signs - 24 hr 09/17/23 15:08 09/17/23 15:09 09/17/23 15:09 Temperature 36.8 C Temperature Source Oral Pulse Rate 81 80 Pulse Rate from SpO2 Sensor 80 Respiratory Rate 14 15 Blood Pressure 122/73 122/73 Blood Pressure Mean 86 89 Pulse Oximetry 97 96 Oxygen Delivery Method Room Air Sepsis Recent Fever Within 48 Hours No Sepsis New/Unexplained Change in Mental Status N/A Sepsis Action Taken by Nursing No Action Required 09/17/23 15:10 09/17/23 15:19 09/17/23 15:20 Temperature Temperature Source Pulse Rate 79 80 Pulse Rate from SpO2 Sensor 79 80 Respiratory Rate 21 12 Blood Pressure Blood Pressure Mean Pulse Oximetry 95 97 94 Oxygen Delivery Method Room Air Sepsis Recent Fever Within 48 Hours Sepsis New/Unexplained Change in Mental Status Sepsis Action Taken by Nursing 09/17/23 15:30 09/17/23 15:30 09/17/23 15:40 Temperature Temperature Source Pulse Rate 80 78 Pulse Rate from SpO2 Sensor 80 78 Respiratory Rate 14 22 Blood Pressure 117/77 Blood Pressure Mean 93 Pulse Oximetry 95 97 Oxygen Delivery Method Sepsis Recent Fever Within 48 Hours Sepsis New/Unexplained Change in Mental Status Sepsis Action Taken by Nursing 09/17/23 15:50 09/17/23 16:00 09/17/23 16:00 Temperature Temperature Source Pulse Rate 77 77 77 Pulse Rate from SpO2 Sensor 77 77 Respiratory Rate 14 13 Blood Pressure Blood Pressure Mean Pulse Oximetry 99 100 Oxygen Delivery Method Sepsis Recent Fever Within 48 Hours Sepsis New/Unexplained Change in Mental Status Sepsis Action Taken by Nursing 09/17/23 16:00 09/17/23 16:10 09/17/23 16:24 Temperature Temperature Source Pulse Rate 78 77 Pulse Rate from SpO2 Sensor 78 77 Respiratory Rate 15 Blood Pressure 125/81 Blood Pressure Mean 90 Pulse Oximetry 100 99 Oxygen Delivery Method Sepsis Recent Fever Within 48 Hours Sepsis New/Unexplained Change in Mental Status Sepsis Action Taken by Nursing 09/17/23 16:30 09/17/23 16:30 09/17/23 16:40 Temperature Temperature Source Pulse Rate 72 79 Pulse Rate from SpO2 Sensor 72 79 Respiratory Rate 15 19 Blood Pressure 129/71 Blood Pressure Mean 81 Pulse Oximetry 100 87 L Oxygen Delivery Method Sepsis Recent Fever Within 48 Hours Sepsis New/Unexplained Change in Mental Status Sepsis Action Taken by Nursing 09/17/23 16:50 09/17/23 17:02 09/17/23 17:10 Temperature Temperature Source Pulse Rate 87 84 76 Pulse Rate from SpO2 Sensor 77 Respiratory Rate 15 13 12 Blood Pressure Blood Pressure Mean Pulse Oximetry 98 Oxygen Delivery Method Sepsis Recent Fever Within 48 Hours Sepsis New/Unexplained Change in Mental Status Sepsis Action Taken by Nursing 09/17/23 17:20 09/17/23 17:30 09/17/23 17:30 Temperature Temperature Source Pulse Rate 75 75 Pulse Rate from SpO2 Sensor Respiratory Rate 12 12 Blood Pressure 101/51 L Blood Pressure Mean 65 Pulse Oximetry Oxygen Delivery Method Sepsis Recent Fever Within 48 Hours Sepsis New/Unexplained Change in Mental Status Sepsis Action Taken by Nursing Laboratory Data 09/17/23 15:12 09/17/23 15:12 Lab Results 09/17/23 09/17/23 09/17/23 Range/Units 15:12 15:21 15:56 WBC 2.35 L (4.8-10.8) K/ul RBC 2.72 L (4.70-6.10) M/uL Hgb 7.2 L (14.0-18.0) g/dl Hct 22.2 L (42.0-52.0) % MCV 81.6 (80.0-100.0) fL MCH 26.5 (25.0-34.0) pg MCHC 32.4 (32.0-36.0) g/dL RDW Std Deviation 48.2 H (36.4-46.3) fL RDW Coeff of Bess 16.4 H (11.5-14.5) % Plt Count 147 (130-400) K/uL MPV 9.1 L (9.4-12.4) fL Immature Gran % (Auto) 0.9 % Neut % (Auto) 88.0 % Lymph % (Auto) 7.7 % Crisp % (Auto) 2.1 % Eos % (Auto) 0.9 % Baso % (Auto) 0.4 % Neut # (Auto) 2.07 (1.40-6.50) K/uL Lymph # (Auto) 0.18 L (1.20-3.40) K/uL Crisp # (Auto) 0.05 L (0.11-0.59) K/uL Eos # (Auto) 0.02 (0.00-0.50) K/uL Baso # (Auto) 0.01 (0.00-0.20) K/uL Immature Gran # (Auto) 0.02 (0.01-0.20) K/uL Hyposegmented Neuts 2+ PT 11.4 (9.0-12.0) Seconds INR 1.0 (0.9-1.1) Sodium 136 (136-145) mmol/L Potassium 4.0 (3.5-5.1) mmol/L Chloride 104 (98-107) mmol/L Carbon Dioxide 22 (21-32) mmol/L Anion Gap 10 (3-11) BUN 37 H (6-23) mg/dl Creatinine 3.20 H (0.6-1.4) mg/dl Est Cr Clr Drug Dosing 27.1 ml/min Est GFR ( Amer) 23.6 ml/min Est GFR (Non-Af Amer) 20.4 ml/min BUN/Creatinine Ratio 11.6 (10-20) Glucose 180 H (70-99(Fasting)) mg/dl Lactate (0.4-2.0) mmol/L Calcium 7.9 L (8.6-10.3) mg/dl Total Bilirubin 1.3 H (0.2-1.0) mg/dl Direct Bilirubin 0.4 H (0-0.2) mg/dl AST 59 H (13-39) U/L ALT 55 H (7-52) U/L Alkaline Phosphatase 156 H (34-104) U/L Total Protein 6.0 (6.0-8.3) gm/dl Albumin 2.9 L (3.4-5.0) gm/dl Globulin 3.1 (2.5-4.0) gm/dl Albumin/Globulin Ratio 0.9 (0.9-2) Lipase < 3 L (11-82) U/L Procalcitonin 7.62 H (0-0.5) ng/ml Urine Color Urine Appearance (Clear) Urine pH (4.5-7.5) Ur Specific [place] (1.000-1.030) Urine Protein (Negative) Urine Glucose (UA) (Negative) Urine Ketones (Negative) Urine Blood (Negative) Urine Nitrite (Negative) Urine Bilirubin (Negative) Urine Urobilinogen (Negative) Ur Leukocyte Esterase (Negative) Urine WBC (Auto) (0-5) /hpf Urine RBC (Auto) (0-2) /hpf U Hyaline Cast (Auto) (0-2) /lpf U Epithel Cells (Auto) (0-2) /hpf Urine Bacteria (Auto) (None Seen) Ethyl Alcohol mg/dL < 10.0 (<10.0) mg/dl Blood Type Antibody Screen Crossmatch 09/17/23 09/17/23 Range/Units 17:00 17:47 WBC (4.8-10.8) K/ul RBC (4.70-6.10) M/uL Hgb (14.0-18.0) g/dl Hct (42.0-52.0) % MCV (80.0-100.0) fL MCH (25.0-34.0) pg MCHC (32.0-36.0) g/dL RDW Std Deviation (36.4-46.3) fL RDW Coeff of Bess (11.5-14.5) % Plt Count (130-400) K/uL MPV (9.4-12.4) fL Immature Gran % (Auto) % Neut % (Auto) % Lymph % (Auto) % Crisp % (Auto) % Eos % (Auto) % Baso % (Auto) % Neut # (Auto) (1.40-6.50) K/uL Lymph # (Auto) (1.20-3.40) K/uL Crisp # (Auto) (0.11-0.59) K/uL Eos # (Auto) (0.00-0.50) K/uL Baso # (Auto) (0.00-0.20) K/uL Immature Gran # (Auto) (0.01-0.20) K/uL Hyposegmented Neuts PT (9.0-12.0) Seconds INR (0.9-1.1) Sodium (136-145) mmol/L Potassium (3.5-5.1) mmol/L Chloride (98-107) mmol/L Carbon Dioxide (21-32) mmol/L Anion Gap (3-11) BUN (6-23) mg/dl Creatinine (0.6-1.4) mg/dl Est Cr Clr Drug Dosing ml/min Est GFR ( Amer) ml/min Est GFR (Non-Af Amer) ml/min BUN/Creatinine Ratio (10-20) Glucose (70-99(Fasting)) mg/dl Lactate 1.4 (0.4-2.0) mmol/L Calcium (8.6-10.3) mg/dl Total Bilirubin (0.2-1.0) mg/dl Direct Bilirubin (0-0.2) mg/dl AST (13-39) U/L ALT (7-52) U/L Alkaline Phosphatase (34-104) U/L Total Protein (6.0-8.3) gm/dl Albumin (3.4-5.0) gm/dl Globulin (2.5-4.0) gm/dl Albumin/Globulin Ratio (0.9-2) Lipase (11-82) U/L Procalcitonin (0-0.5) ng/ml Urine Color [place] Urine Appearance Cloudy A (Clear) Urine pH 5.5 (4.5-7.5) Ur Specific [place] 1.010 (1.000-1.030) Urine Protein 2+ H (Negative) Urine Glucose (UA) Negative (Negative) Urine Ketones Negative (Negative) Urine Blood 3+ H (Negative) Urine Nitrite Negative (Negative) Urine Bilirubin Negative (Negative) Urine Urobilinogen Negative (Negative) Ur Leukocyte Esterase Trace H (Negative) Urine WBC (Auto) 0-5 (0-5) /hpf Urine RBC (Auto) >20 H (0-2) /hpf U Hyaline Cast (Auto) 0-2 (0-2) /lpf U Epithel Cells (Auto) 0-2 (0-2) /hpf Urine Bacteria (Auto) None Seen (None Seen) Ethyl Alcohol mg/dL (<10.0) mg/dl Blood Type B Positive Antibody Screen NEGATIVE Crossmatch See Detail Administered Medications Discontinued Medications Sodium Chloride (Nss) 1,000 mls @ 999 mls/hr IV .Q1H1M ONE Stop: 09/17/23 16:12 Last Infusion: 09/17/23 16:26 Dose: Infused Documented By: Admin: 09/17/23 15:28 Dose: 999 mls/hr Documented By: ACC Ceftriaxone Sodium (Rocephin) 2,000 mg in 50 mls @ 100 mls/hr IV NOW STA Stop: 09/17/23 18:34 Last Admin: 09/17/23 18:54 Dose: 100 mls/hr Documented By: ACC Imaging Data Radiologist's Impression: Abdomen/Pelvis CT 09/17/23 15:[address] WITHOUT CONTRAST CT DOSE: 2106. mGy.cm HISTORY: Acute renal failure arf, pancreatic ca TECHNIQUE: Multiaxial CT images of the abdomen and pelvis were performed without contrast. A dose lowering technique was utilized adhering to the principles of ALARA. COMPARISON STUDY: CT 07/27/2023 FINDINGS: Cardiomegaly with decreased attenuation of the cardiac blood pool. Trace pericardial effusion. Moderate coronary artery calcifications. Bibasilar groundglass densities with mucus plugging. No free air identified. 15.7 cm spleen. Unremarkable adrenal glands. There is a stent device attending from the stomach into the gallbladder. Gallbladder wall thickening with perivesicular stranding. Debris within the gallbladder lumen is noted with pneumobilia. A common bile duct stent is also in place. Heterogeneity of the liver. Indeterminate 6 mm hypodense focus of the hepatic dome is unchanged. The liver is heterogeneous. Pancreatic head mass redemonstrated measuring approximately 3.7 cm. Periportal lymph nodes measure up to 1.3 cm, similar to prior. Wall thickening of the distal stomach is likely reactive. Bilateral nephrolithiasis. Calculi of the left kidney measures up to 10 mm. Calculi of the right kidney measure up to 12 mm cyst in the inferior pole. Linear 9 mm calculus in the proximal left ureter. There is mild left-sided hydroureteronephrosis. Mild to moderate right-sided hydroureteronephrosis secondary to to proximal right ureteral calculi measuring 9 and 10 mm respectively at the level of L2. Bilateral perinephric stranding. Urinary bladder wall thickening with partial distention. Layering stone fragments in the dependent left aspect of the urinary bladder. Prostamegaly. Small fat filled inguinal hernias with hydroceles. Distal esophageal wall thickening. Small hiatal hernia. Is nonspecific wall thickening of the rectosigmoid with adjacent inflammatory stranding. Colonic diverticulosis without acute diverticulitis. There is additional wall thickening of the ascending colon. Noninflamed appendix. No new bone lesions are identified. IMPRESSION: 1. Moderate right-sided hydroureteronephrosis secondary to two obstructing proximal right ureteral calculi measuring up to 10 mm. 2. Mild left-sided hydroureteronephrosis secondary to an obstructing 9 mm calculus within the proximal left ureter. 3. Bilateral nephrolithiasis with urinary bladder calculi. 4. Similar size of the pancreatic head mass with periportal lymphadenopathy. 5. Contracted gallbladder with wall thickening and pericholecystic edema again noted. Common bile duct stent is in place. 6. Nonspecific wall thickening of the rectosigmoid and ascending colon with adjacent inflammatory stranding. Correlate clinically to exclude a nonspecific proctocolitis. 7. Additional findings as above. ACT 112: Negative or not required by law. The above report was generated using voice recognition software. It may contain grammatical, syntax or spelling errors. Electronically signed by: Randy Mukherjee M.D. 09/17/2023 5:[address] 09/17/23 15:55 CT head/brain wo con CLINICAL HISTORY: 58 years-old Male with ams, somnloence, panc ca. Acutely altered mental status TECHNIQUE: Multiple axial CT images of the head were obtained without contrast. A dose lowering technique was utilized adhering to the principles of ALARA. COMPARISON: 09/13/2016 FINDINGS: No acute intracranial hemorrhage, midline shift, intra-axial mass, hydrocephalus, territorial ischemia or abnormal extra-axial collection. Encephalomalacia related to chronic right MCA infarct. 1.7 cm extra-axial calcification adjacent to the superior frontal lobe on image 25 series 3 again noted which may represent a meningioma. Involutional changes. The calvarium is intact. The paranasal sinuses, mastoid air cells, and middle ear cavities are clear. IMPRESSION: 1. No acute intracranial abnormality. 2. Chronic right MCA infarct. ACT 112: Negative or not required by law. The above report was generated using voice recognition software. It may contain grammatical, syntax or spelling errors. Electronically signed by: Randy Mukherjee M.D. 09/17/2023 5:03 PM Discharge Plan Visit Data Chief Complaint: Illness Stated Complaint: BLLOD IN URINE, DIZZINESS, LIGHTHEADED, VOMITING ED Provider: Leonides Geiger Discharge Problem: Acute renal failure, Transaminitis, Pancreatic cancer, Ureterolithiasis, Hydronephrosis due to obstruction of ureter, Metastatic disease, Anemia, Lymphopenia Patient Disposition: Admitted As Inpatient Discharge Instructions Interventions: ED Discharge Assessment Last Done: 09/17/23 18:57 Forms Stand Alone Forms: [place] Prescriptions Prescriptions: No Action fluoxetine 40 mg capsule 40 mg PO DAILY clopidogrel 75 mg tablet 75 mg PO DAILY baclofen 10 mg tablet 15 mg PO QID ezetimibe 10 mg tablet 10 mg PO DAILY aspirin 81 mg Capsule 81 mg PO DAILY losartan 50 mg tablet 50 mg PO DAILY thiamine HCl (vitamin B1) 100 mg Tablet 100 mg PO DAILY metoprolol tartrate 50 mg tablet 50 mg PO DAILY folic acid 1 mg tablet 1 mg PO DAILY acetaminophen [Tylenol Extra Strength] 500 mg Tablet 500 mg PO DIRECTED PRN (Reason: PAIN/FEVER) diphenhydramine HCl [Benadryl] 25 mg Capsule 25 mg PO Q6H PRN (Reason: Itching) metformin 500 mg tablet extended release 24 hr 500 mg PO BID oxycodone 5 mg tablet 2.5 mg PO Q6H PRN (Reason: Pain) insulin glargine [Lantus Solostar U-100 Insulin] 100 unit/mL (3 mL) insulin pen 10 unit SUBCUT QAM Rx Instructions: 10 units now instead of 8 per polyethylene glycol 3350 [Miralax] 17 gram Powder In Packet 17 g PO DAILY PRN (Reason: constipation) Qty: 30 0RF pantoprazole [Protonix] 40 mg tablet,delayed release (DR/EC) 40 mg PO BID Qty: 60 0RF Referrals Referrals: Mati Sanabria MD [Primary Care Provider] - Discharge Problem: Acute renal failure Qualifiers: Acute renal failure type: unspecified Qualified Code(s): N17.9 - Acute kidney failure, unspecified Pancreatic cancer Qualifiers: Pancreatic malignancy location: unspecified Qualified Code(s): C25.9 - Malignant neoplasm of pancreas, unspecified Metastatic disease Qualifiers: Area of secondary neoplastic involvement: unspecified site Qualified Code(s): C 79.9 - Secondary malignant neoplasm of unspecified site Anemia Qualifiers: Anemia type: unspecified type Qualified Code(s): D64.9 - Anemia, unspecified
[2023-09-17 15:30] LABS: Basophils # (auto) 0.01 K/uL (0.00-0.20); Basophils % (auto) 0.4 %; Eosinophils # (auto) 0.02 K/uL (0.00-0.50); Eosinophils % (auto) 0.9 %; Hematocrit (blood only) 22.2 % (42.0-52.0); Hemoglobin 7.2 g/dl (14.0-18.0); Immature Granulocytes # (auto) 0.02 K/uL (0.01-0.20); Immature Granulocytes % (auto) 0.9 %; Lymphocytes # (auto) 0.18 K/uL (1.20-3.40); Lymphocytes % (auto) 7.7 %; Mean Corpuscular Hemoglobin 26.5 pg (25.0-34.0); Mean Corpuscular Hgb Conc 32.4 g/dL (32.0-36.0); Mean Corpuscular Volume 81.6 fL (80.0-100.0); Mean Platelet Volume 9.1 fL (9.4-12.4); Monocytes # (auto) 0.05 K/uL (0.11-0.59); Monocytes % (auto) 2.1 %; Neutrophils # (auto) 2.07 K/uL (1.40-6.50); Platelet Count 147 K/uL (130-400); RDW Coefficient of Variation 16.4 % (11.5-14.5); RDW Standard Deviation 48.2 fL (36.4-46.3); Red Blood Count 2.72 M/uL (4.70-6.10); White Blood Count 2.35 K/ul (4.8-10.8)
[2023-09-17 15:47] LABS: Anion Gap 10 (3-11); BUN Creatinine Ratio 11.6 (10-20); Blood Urea Nitrogen 37 mg/dl (6-23); Calcium 7.9 mg/dl (8.6-10.3); Carbon Dioxide 22 mmol/L (21-32); Chloride 104 mmol/L (98-107); Creatinine Clr Calc Pharmacy 27.1 ml/min; Est GFR (African American) 23.6 ml/min; Est GFR (Non-African American) 20.4 ml/min; Glucose 180 mg/dl (70-99(Fasting)); Sodium 136 mmol/L (136-145)
[2023-09-17 15:50] LABS: Alanine Aminotransferase 55 U/L (7-52); Albumin Globulin Ratio 0.9 (0.9-2); Albumin Level 2.9 gm/dl (3.4-5.0); Alkaline Phosphatase 156 U/L (34-104); Aspartate Aminotransferase 59 U/L (13-39); Bilirubin,Total 1.3 mg/dl (0.2-1.0); Globulin 3.1 gm/dl (2.5-4.0); Lipase < 3 U/L (11-82)
[2023-09-17 15:56] LABS: Prothrombin Time 11.4 Seconds (9.0-12.0)
[2023-09-17 16:23] LABS: Bilirubin Direct 0.4 mg/dl (0-0.2)
--- NOTE | 2023-09-17 17:05 | CT Scan Report ---
CT head/brain wo con CLINICAL HISTORY: 58 years-old Male with ams, somnloence, panc ca. Acutely altered mental status TECHNIQUE: Multiple axial CT images of the head were obtained without contrast. A dose lowering tech nique was utilized adhering to the principles of ALARA. COMPARISON: 09/13/2016 FINDINGS: No acute intracranial hemorrhage, midline shift, intra-axial mass, hydrocephalus, territorial ischemi a or abnormal extra-axial collection. Encephalomalacia related to chronic right MCA infarct. 1.7 cm e xtra-axial calcification adjacent to the superior frontal lobe on image 25 series 3 again noted which may represent a meningioma. Involutional changes. The calvarium is intact. The paranasal sinuses, mastoid air cells, and middle ear cavities are clear . IMPRESSION: 1. No acute intracranial abnormality. 2. Chronic right MCA infarct. ACT 112: Negative or not required by law. The above report was generated using voice recognition software. It may contain grammatical, syntax o r spelling errors. Electronically signed by: Randy Mukherjee M.D. 09/17/2023 5:03 PM
[2023-09-17 17:24] LABS: Appearance Urine Cloudy (Clear); Bacteria Urine Automated None Seen (None Seen); Bilirubin Urine Negative (Negative); Blood Urine 3+ (Negative); Cast Urine Automated 0-2 /lpf (0-2); Color Urine Orange; Epithelial Cell Urine Auto 0-2 /hpf (0-2); Glucose Urine UA Negative (Negative); Ketones Urine Negative (Negative); Leukocyte Esterase Urine Trace (Negative); Nitrite Urine Negative (Negative); Protein Urine 2+ (Negative); RBC Urine Automated >20 /hpf (0-2); Urobilinogen Urine Negative (Negative); WBC Urine Automated 0-5 /hpf (0-5); pH Urine 5.5 (4.5-7.5)
--- NOTE | 2023-09-17 17:25 | CT Scan Report ---
ABDOMEN AND PELVIS CT WITHOUT CONTRAST CT DOSE: 2106. mGy.cm HISTORY: Acute renal failure arf, pancreatic ca TECHNIQUE: Multiaxial CT images of the abdomen and pelvis were performed without contrast. A dose lo wering technique was utilized adhering to the principles of ALARA. COMPARISON STUDY: CT 07/27/2023 FINDINGS: Cardiomegaly with decreased attenuation of the cardiac blood pool. Trace pericardial effusi on. Moderate coronary artery calcifications. Bibasilar groundglass densities with mucus plugging. No free air identified. 15.7 cm spleen. Unremarkable adrenal glands. There is a stent device attending from the stomach into the gallbladder. Gallbladder wall thickening with perivesicular stranding. Debris within the gallblad kelli lumen is noted with pneumobilia. A common bile duct stent is also in place. Heterogeneity of the liver. Indeterminate 6 mm hypodense focus of the hepatic dome is unchanged. The liver is heterogeneou s. Pancreatic head mass redemonstrated measuring approximately 3.7 cm. Periportal lymph nodes measure up to 1.3 cm, similar to prior. Wall thickening of the distal stomach is likely reactive. Bilateral nephrolithiasis. Calculi of the left kidney measures up to 10 mm. Calculi of the right kidn ey measure up to 12 mm cyst in the inferior pole. Linear 9 mm calculus in the proximal left ureter. T here is mild left-sided hydroureteronephrosis. Mild to moderate right-sided hydroureteronephrosis sec ondary to to proximal right ureteral calculi measuring 9 and 10 mm respectively at the level of L2. B ilateral perinephric stranding. Urinary bladder wall thickening with partial distention. Layering sto ne fragments in the dependent left aspect of the urinary bladder. Prostamegaly. Small fat filled ingu inal hernias with hydroceles. Distal esophageal wall thickening. Small hiatal hernia. Is nonspecific wall thickening of the rectosi gmoid with adjacent inflammatory stranding. Colonic diverticulosis without acute diverticulitis. Ther e is additional wall thickening of the ascending colon. Noninflamed appendix. No new bone lesions are identified. IMPRESSION: 1. Moderate right-sided hydroureteronephrosis secondary to two obstructing proximal right ureteral ca lculi measuring up to 10 mm. 2. Mild left-sided hydroureteronephrosis secondary to an obstructing 9 mm calculus within the proxima l left ureter. 3. Bilateral nephrolithiasis with urinary bladder calculi. 4. Similar size of the pancreatic head mass with periportal lymphadenopathy. 5. Contracted gallbladder with wall thickening and pericholecystic edema again noted. Common bile mohinder t stent is in place. 6. Nonspecific wall thickening of the rectosigmoid and ascending colon with adjacent inflammatory str anding. Correlate clinically to exclude a nonspecific proctocolitis. 7. Additional findings as above. ACT 112: Negative or not required by law. The above report was generated using voice recognition software. It may contain grammatical, syntax o r spelling errors. Electronically signed by: Randy Mukherjee M.D. 09/17/2023 5:23 PM
[2023-09-17] MEDS ORDERED: SODIUM CHLORIDE 0.9% 250 ML IV PRN (17:34)
--- NOTE | 2023-09-17 18:24 | Anesthesiology Consultation ---
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 History Surgery Operation Date: 09/17/23 18:45 Proposed Procedures p Cystoscopy Retrograde; Bilateral Stent Insertion - Carlin Ortega MD Height/Weight Height: 5 ft 11 in Weight: 82.9 kg Allergies Allergy/AdvReac Type Severity Reaction Status Date / Time No Known Allergies Allergy Verified 07/27/23 02:56 Medications Home Medications Medication Instructions Recorded Confirmed Last Taken aspirin 81 mg capsule 81 mg PO DAILY 05/29/23 09/17/23 07/26/23 baclofen 10 mg tablet 15 mg PO QID 05/29/23 09/17/23 07/26/23 clopidogrel 75 mg tablet 75 mg PO DAILY 05/29/23 09/17/23 07/26/23 ezetimibe 10 mg tablet 10 mg PO DAILY 05/29/23 09/17/23 07/26/23 fluoxetine 40 mg capsule 40 mg PO DAILY 05/29/23 09/17/23 07/26/23 folic acid 1 mg tablet 1 mg PO DAILY 05/29/23 09/17/23 07/26/23 losartan 50 mg tablet 50 mg PO DAILY 05/29/23 09/17/23 07/26/23 metoprolol tartrate 50 mg tablet 50 mg PO DAILY 05/29/23 09/17/23 07/26/23 thiamine HCl (vitamin B1) 100 mg 100 mg PO DAILY 05/29/23 09/17/23 07/26/23 tablet acetaminophen 500 mg tablet 500 mg PO DIRECTED PRN 07/27/23 09/17/23 Unknown (Tylenol Extra Strength) PAIN/FEVER diphenhydramine HCl 25 mg capsule 25 mg PO Q6H PRN Itching 07/27/23 09/17/23 Unknown (Benadryl) glipizide 2.5 mg tablet, extended 2.5 mg PO DAILYBB 07/27/23 07/27/23 07/26/23 release 24 hr insulin glargine 100 unit/mL (3 10 unit subcut QAM 07/27/23 09/17/23 07/26/23 mL) subcutaneous pen (Lantus Solostar U-100 Insulin) metformin 500 mg tablet,extended 500 mg PO BID 07/27/23 09/17/23 07/26/23 release 24 hr oxycodone 5 mg tablet 2.5 mg PO Q6H PRN Pain 07/27/23 09/17/23 Unknown pantoprazole 40 mg tablet,delayed 40 mg PO BID #60 tabs 07/31/23 09/17/23 Unknown release (Protonix) polyethylene glycol 3350 17 gram 17 g PO DAILY PRN constipation #30 07/31/23 09/17/23 Unknown oral powder packet (Miralax) ea Past Medical History Medical History DMII (diabetes mellitus, type 2) Anxiety History of tobacco use Focal dystonia Benign meningioma of brain Left hemiplegia Left spastic hemiparesis Adhesive capsulitis of left shoulder 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 Fatty liver Obesity Arteriosclerosis of coronary artery CAD (coronary artery disease) Cerebral atherosclerosis HTN (hypertension) Carotid stenosis, symptomatic, with infarction Hyperlipidemia Past Family History Family History Mother Diabetes Past Surgical History Surgical History S/P tonsillectomy and adenoidectomy S/P carotid endarterectomy Social History Smoking Status: Never smoker Hx Alcohol Use: Yes Alcohol type: beer alcohol intake frequency: 3 or more drinks per day Hx Substance Use: No Physical Exam Vital Signs Last Vital Signs Temp 98.2 F 09/17/23 15:09 Pulse 75 09/17/23 17:30 Resp 12 09/17/23 17:30 BP 101/51 L 09/17/23 17:30 Pulse Ox 98 09/17/23 17:10 O2 Del Method Room Air 09/17/23 15:19 Testing Laboratory Results 09/17/23 15:12 09/17/23 15:12 PT 11.4 Seconds (9.0-12.0) 09/17/23 15:12 INR 1.0 (0.9-1.1) 09/17/23 15:12 Urine Color Ceiba 09/17/23 17:00 Urine Appearance Cloudy (Clear) A 09/17/23 17:00 Urine pH 5.5 (4.5-7.5) 09/17/23 17:00 Ur Specific [place] 1.010 (1.000-1.030) 09/17/23 17:00 Urine Protein 2+ (Negative) H 09/17/23 17:00 Urine Glucose (UA) Negative (Negative) 09/17/23 17:00 Urine Ketones Negative (Negative) 09/17/23 17:00 Urine Nitrite Negative (Negative) 09/17/23 17:00 Ur Leukocyte Esterase Trace (Negative) H 09/17/23 17:00 Urine WBC (Auto) 0-5 /hpf (0-5) 09/17/23 17:00 Urine RBC (Auto) >20 /hpf (0-2) H 09/17/23 17:00 U Hyaline Cast (Auto) 0-2 /lpf (0-2) 09/17/23 17:00 U Epithel Cells (Auto) 0-2 /hpf (0-2) 09/17/23 17:00 Urine Bacteria (Auto) None Seen (None Seen) 09/17/23 17:00
--- NOTE | 2023-09-17 18:44 | Urology Consultation ---
Date of Consultation September 17, 2023 Assessment & Plan (1) Hydronephrosis due to obstruction of ureter: (2) Ureterolithiasis: (3) Acute renal failure: Plan We reviewed the findings on the CT scan, specifically that he likely has bilateral ureteral stones. Since his creatinine is elevated, I recommend that we proceed to the OR for cystoscopy, bilateral retrograde pyelogram and bilateral ureteral stent placement. We discussed risks and benefits of the surgery. Specifically discussed risks of bleeding, infection, injury to urinary tract, inability to place stents, need for additional procedures. He and his family expressed understanding and would like to proceed with surgery. History of Present Illness Reason for Consultation: bilateral nephrolithiasis History of Present Illness This is a 58-year-old male with history of pancreatic cancer who presented to the emergency department on 09/17/2023 with nausea and vomiting. Family thought they had seen some blood-tinged to the urine as well. Workup in the ED was notable for leukopenia (WBC 2.35), hemoglobin 7.2. Creatinine was elevated significantly from baseline at 3.20. Urinalysis was notable for 3+ blood, negative bacteria, negative nitrites and trace leukocyte esterase. CT scan was performed. I independently reviewed these images both kidneys are in normal position and there is hydronephrosis bilaterally. In the proximal right ureter there are 2 obstructing stones. There are some lower pole right- sided stones as well. In the proximal left ureter there is a wispy hyperdense area which is hard to tell whether it is a stone or some sediment. There are nonobstructing stones in the left kidney. His bladder is grossly normal, as is his prostate. Radiology makes note of pancreatic head mass with periportal lymphadenopathy, contracted gallbladder and rectosigmoid and colonic thickening. Due to the presence of bilateral ureteral stones and elevated creatinine, urology was consulted for evaluation. At the bedside, he is not able to provide much history. Family feels in some of the history as well. He has no history of nephrolithiasis. He does not seem to be having any flank pain although they think this may be related to him being on chronic baclofen. He has not been having fevers or chills. Allergies Allergy/AdvReac Type Severity Reaction Status Date / Time No Known Allergies Allergy Verified 07/27/23 02:56 Home Medications Medication Instructions Recorded Confirmed Type aspirin 81 mg capsule 81 mg PO DAILY 05/29/23 09/17/23 History baclofen 10 mg tablet 15 mg PO QID 05/29/23 09/17/23 History clopidogrel 75 mg tablet 75 mg PO DAILY 05/29/23 09/17/23 History ezetimibe 10 mg tablet 10 mg PO DAILY 05/29/23 09/17/23 History fluoxetine 40 mg capsule 40 mg PO DAILY 05/29/23 09/17/23 History folic acid 1 mg tablet 1 mg PO DAILY 05/29/23 09/17/23 History losartan 50 mg tablet 50 mg PO DAILY 05/29/23 09/17/23 History metoprolol tartrate 50 mg tablet 50 mg PO DAILY 05/29/23 09/17/23 History thiamine HCl (vitamin B1) 100 mg 100 mg PO DAILY 05/29/23 09/17/23 History tablet acetaminophen 500 mg tablet 500 mg PO DIRECTED PRN 07/27/23 09/17/23 History (Tylenol Extra Strength) PAIN/FEVER diphenhydramine HCl 25 mg capsule 25 mg PO Q6H PRN Itching 07/27/23 09/17/23 History (Benadryl) glipizide 2.5 mg tablet, extended 2.5 mg PO DAILYBB 07/27/23 07/27/23 History release 24 hr insulin glargine 100 unit/mL (3 10 unit subcut QAM 07/27/23 09/17/23 History mL) subcutaneous pen (Lantus Solostar U-100 Insulin) metformin 500 mg tablet,extended 500 mg PO BID 07/27/23 09/17/23 History release 24 hr oxycodone 5 mg tablet 2.5 mg PO Q6H PRN Pain 07/27/23 09/17/23 History pantoprazole 40 mg tablet,delayed 40 mg PO BID #60 tabs 07/31/23 09/17/23 Rx release (Protonix) polyethylene glycol 3350 17 gram 17 g PO DAILY PRN constipation #30 07/31/23 09/17/23 Rx oral powder packet (Miralax) ea Patient History Medical History DMII (diabetes mellitus, type 2) Anxiety History of tobacco use Focal dystonia Benign meningioma of brain Left hemiplegia Left spastic hemiparesis Adhesive capsulitis of left shoulder 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 Fatty liver Obesity Arteriosclerosis of coronary artery CAD (coronary artery disease) Cerebral atherosclerosis HTN (hypertension) Carotid stenosis, symptomatic, with infarction Hyperlipidemia Surgical History S/P tonsillectomy and adenoidectomy S/P carotid endarterectomy Family History Mother Diabetes Social History Smoking Status: Never smoker Hx Alcohol Use: Yes Alcohol type: beer Alcohol Intake Frequency Comment: 4-5 drinks per day Hx Substance Use: No Preferred Language: Bel[place]ian Communication Ability: Effective 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 Physical Exam Constitutional: well developed and well nourished; no acute distress Eyes: + anicteric sclerae; pupils not irregula r Respiratory: normal respiratory effort; no respiratory distress, does not use accessory muscles and no cough Cardiovascular: well perfused Gastrointestinal (Abdomen): Inspection/Auscultation: abdomen normal to inspection; abdomen not distended Musculoskeletal: Extremities: extremities normal to inspection Skin: normal turgor; no rashes and no lesions Neurologic: moves all extremities and awake Psychiatric: Orientation: alert and oriented x 3 Results & Data Vital Signs (Past 12 Hours) Vital Signs Temp Pulse Resp BP Pulse Ox O2 Del Method 09/17/23 17:30 75 12 09/17/23 17:30 101/51 L 09/17/23 17:20 75 12 09/17/23 17:10 76 12 98 09/17/23 17:02 84 13 09/17/23 16:50 87 15 09/17/23 16:40 79 19 87 L 09/17/23 16:30 129/71 09/17/23 16:30 72 15 100 09/17/23 16:24 77 99 09/17/23 16:10 78 15 100 09/17/23 16:00 125/81 09/17/23 16:00 77 13 100 09/17/23 16:00 77 09/17/23 15:50 77 14 99 09/17/23 15:40 78 22 97 09/17/23 15:30 117/77 09/17/23 15:30 80 14 95 09/17/23 15:20 80 12 94 09/17/23 15:19 97 Room Air 09/17/23 15:10 79 21 95 09/17/23 15:09 80 15 96 09/17/23 15:09 36.8 C 81 14 122/73 97 Room Air 09/17/23 15:08 122/73 PG Care Time/CCT Total # of Minutes Spent Total Time Spent with Patient: Total time spent is greater than 50% in coordination of care (as documented) at patient's floor/unit and/or counseling patient: Coding Level of Care Code 74067 OFFICE CONSULT LVL Diagnoses Hydronephrosis due to obstruction of ureter N13.1 Ureterolithiasis N20.1 Acute renal failure N17.9
--- NOTE | 2023-09-17 18:52 | History & Physical Report ---
Date of Service September 17, 2023 Assessment & Plan (1) Acute renal failure: (2) Other ureteric obstruction: (3) Ureterolithiasis: Plan: 58-year-old man with history of CVA with left hemiplegia, diabetes mellitus type 2, pancreatic cancer metastasized to the liver, CAD, hypertension, Recent hospitalization from 07/28/2023 to 07/31/2023 for acute cholecystitis and required 2 PRBC during the admission, status post EUS guided GB drainage and Axios stent placement on 08/11/2023, Who presented today ER with hematuria that started yesterday CT abdomen pelvis noted moderate right-sided hydroureteronephrosis due to 2 obstructing proximal right ureteric calculi measuring up to 10 mm, mild left- sided hydroureteronephrosis secondary to an obstructing 9 mm calculus in the proximal left ureter, bilateral nephrolithiasis with urinary bladder calculi. Other findings include similar size of pancreatic head mass with periportal lymphadenopathy, contracted gallbladder with wall thickening and Kedar cholecystic edema, CBD stent in place. Nonspecific wall thickening of the rectosigmoid and ascending colon with adjacent inflammatory stranding. Labs notable for WBC of 2.35, hemoglobin of 7.2, creatinine of 3.2 [from 0.93 on 07/31/23], total bilirubin of 1.3, direct bilirubin of 0.4, AST of 59, ALT of 55, alkaline phosphatase of 156, procalcitonin of 7.62 Acute renal function due to obstructing ureteric stones. Considering this is bilateral, ER and communicated with urology Dr. Ortega. ER reports patient will be planned for the OR. Will follow-up urology procedure and recommendations. IVF. NPO for procedure Patient's altered mental status at this time may be due to multiple reasons. CT head did not show any acute abnormalities Possibilities include metabolic encephalopathy in the setting of acute kidney injury, medication effect such as baclofen in the setting of reduced renal function [patient took his baclofen this morning] Sepsis is also a possibility with altered mental status, leukopenia in an immunocompromised patient on chemotherapy. Elevated procalcitonin. Considering recent antibiotic treatment, recent procedure, CT findings with respect to the colon; will broaden antibiotics for now with Zosyn, renally dosed. Will follow-up blood culture, urine culture and de-escalate as appropriate. (4) Pancreatic cancer: (5) Elevated LFTs: (6) Transaminitis: Plan: AST, ALT, alk phos though elevated, and mildly improved compared to outpatient LFT on 09/15/2023. Likely related to metastatic pancreatic cancer on chemo. Will monitor. (7) HTN (hypertension): Plan: Blood pressure currently normal. Hold home losartan Monitor blood pressure (8) DMII (diabetes mellitus, type 2): Plan: Per , patient was on Lantus 10 units daily and metformin 500 mg twice daily. Hold home metformin. Since patient is currently n.p.o. for procedure, will do only sliding scale for now. Accu-Cheks every 6 hourly for now until after procedure. Will change to ACHS when able to start diet. (9) Anemia: Plan: Chronic anemia Hb is 7.2 today Was 8.8 on 09/15/23 outpatient Acute on chronic anemia Possibly due to hematuria reported 2 episodes of hematemesis Hence Upper GI bleed is possible IV PPI gtt for now GI c/s Will monitor ER already typed/crossed PRBC Transfuse prn to keep Hb >7 Monitor for any signs of bleeding (10) CAD (coronary artery disease): Plan: History of CAD. Holding home aspirin and Plavix for now in view of procedure. Plan to resume tomorrow. According to had his meds this morning (11) DVT prophylaxis: Plan: SCD for now in view of possible procedure. Code Status: DNR per Dispo: PCU I spent a total of 75 minutes coordinating, documenting and providing care for this patient excluding time spent in performance of separately billed services History of Present Illness Chief Complaint: Hematuria, Vomiting Primary Care Provider: Mati Sanabria MD 58-year-old man with history of CVA with left hemiplegia, diabetes mellitus type 2, pancreatic cancer metastasized to the liver, CAD, hypertension, Recent hospitalization from 07/28/2023 to 07/31/2023 for acute cholecystitis and required 2 PRBC during the admission, status post EUS guided GB drainage and Axios stent placement on 08/11/2023, Who presented today ER with hematuria that started yesterday. Patient though awake and oriented to person/place, is lethargic and unable to provide much history but able to answer yes or no to simple questions. History obtained from and mother who are at bedside. Patient had chemo on 09/15/2023 [paclitaxel, gemcitabine]. Patient started having hematuria yesterday. According to he also had some abdominal pain and took 2.5 mg of oxycodone as needed last night. He also had 2 episodes of vomiting since yesterday. noted that vomit was small volume but mostly blood Mother noted that he has been more lethargic this morning and since coming to the ER No fevers, chills. Patient denies chest pain, cough, shortness of breath. Patient has chronic left sided hemiplegia. Patient denies abdominal or flank pain currently. No diarrhea, melena or hematochezia. Denies smoking, alcohol or illicit drug use. Allergies Allergy/AdvReac Type Severity Reaction Status Date / Time No Known Allergies Allergy Verified 07/27/23 02:56 Home Medications Medication Instructions Recorded Confirmed Type aspirin 81 mg capsule 81 mg PO DAILY 05/29/23 09/17/23 History baclofen 10 mg tablet 15 mg PO QID 05/29/23 09/17/23 History clopidogrel 75 mg tablet 75 mg PO DAILY 05/29/23 09/17/23 History ezetimibe 10 mg tablet 10 mg PO DAILY 05/29/23 09/17/23 History fluoxetine 40 mg capsule 40 mg PO DAILY 05/29/23 09/17/23 History folic acid 1 mg tablet 1 mg PO DAILY 05/29/23 09/17/23 History losartan 50 mg tablet 50 mg PO DAILY 05/29/23 09/17/23 History metoprolol tartrate 50 mg tablet 50 mg PO DAILY 05/29/23 09/17/23 History thiamine HCl (vitamin B1) 100 mg 100 mg PO DAILY 05/29/23 09/17/23 History tablet acetaminophen 500 mg tablet 500 mg PO DIRECTED PRN 07/27/23 09/17/23 History (Tylenol Extra Strength) PAIN/FEVER diphenhydramine HCl 25 mg capsule 25 mg PO Q6H PRN Itching 07/27/23 09/17/23 History (Benadryl) insulin glargine 100 unit/mL (3 10 unit subcut QAM 07/27/23 09/17/23 History mL) subcutaneous pen (Lantus Solostar U-100 Insulin) metformin 500 mg tablet,extended 500 mg PO BID 07/27/23 09/17/23 History release 24 hr oxycodone 5 mg tablet 2.5 mg PO Q6H PRN Pain 07/27/23 09/17/23 History pantoprazole 40 mg tablet,delayed 40 mg PO BID #60 tabs 07/31/23 09/17/23 Rx release (Protonix) polyethylene glycol 3350 17 gram 17 g PO DAILY PRN constipation #30 07/31/23 09/17/23 Rx oral powder packet (Miralax) ea Past Med/Surg History Medical History DMII (diabetes mellitus, type 2) Anxiety History of tobacco use Focal dystonia Benign meningioma of brain Left hemiplegia Left spastic hemiparesis Adhesive capsulitis of left shoulder 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 Fatty liver Obesity Arteriosclerosis of coronary artery CAD (coronary artery disease) Cerebral atherosclerosis HTN (hypertension) Carotid stenosis, symptomatic, with infarction Hyperlipidemia Surgical History S/P tonsillectomy and adenoidectomy S/P carotid endarterectomy Family History Mother Diabetes Social History Smoking Status: Never smoker Hx Alcohol Use: Yes Alcohol type: beer Alcohol Intake Frequency Comment: 4-5 drinks per day Hx Substance Use: No Preferred Language: Venezuelan Communication Ability: Effective Assistant Boiler Operator Required: No Beliefs That Will Affect Care: None marital status: Current Living Situation: Spouse current occupational status: disabled Feels Safe at Home: Yes Assistive Devices: Brace/Splint/Immobilizer, Cane, Walker and Wheelchair Review of Systems Review of Systems: Limited due to lethargy Systems reviewed are listed in HPI above Physical Exam Constitutional: + well hydrated and + lethargic; no acut e distress Eyes: PERRL, conjunctivae normal, anicteric sclerae ENMT: external ear and nose normal, oropharynx normal Respiratory: normal respiratory effort, lungs clear to auscultation Cardiovascular: Rate/Rhythm: regular rate and regular rhythm S1 S2 Gastrointestinal (Abdomen): normal bowel sounds, soft, nontender, no hepatosplenomegaly Musculoskeletal: No pedal edema Neurologic: Lethargic, sluggish response Follows simple commands Left hemiplegia Psychiatric: Oriented to person and place only, sluggish response Results & Data Results & Data Vital Signs (Past 12 Hours) Vital Signs Temp Pulse Resp BP Pulse Ox O2 Del Method 09/17/23 17:30 75 12 09/17/23 17:30 101/51 L 09/17/23 17:20 75 12 09/17/23 17:10 76 12 98 09/17/23 17:02 84 13 09/17/23 16:50 87 15 09/17/23 16:40 79 19 87 L 09/17/23 16:30 129/71 09/17/23 16:30 72 15 100 09/17/23 16:24 77 99 09/17/23 16:10 78 15 100 09/17/23 16:00 125/81 09/17/23 16:00 77 13 100 09/17/23 16:00 77 09/17/23 15:50 77 14 99 09/17/23 15:40 78 22 97 09/17/23 15:30 117/77 09/17/23 15:30 80 14 95 09/17/23 15:20 80 12 94 09/17/23 15:19 97 Room Air 09/17/23 15:10 79 21 95 09/17/23 15:09 80 15 96 09/17/23 15:09 36.8 C 81 14 122/73 97 Room Air 09/17/23 15:08 122/73 Laboratory Results Abnormal lab results 09/17/23 09/17/23 09/17/23 Range/Units 15:12 15:21 17:00 WBC 2.35 L (4.8-10.8) K/ul RBC 2.72 L (4.70-6.10) M/uL Hgb 7.2 L (14.0-18.0) g/dl Hct 22.2 L (42.0-52.0) % RDW Std Deviation 48.2 H (36.4-46.3) fL RDW Coeff of Bess 16.4 H (11.5-14.5) % MPV 9.1 L (9.4-12.4) fL Lymph # (Auto) 0.18 L (1.20-3.40) K/uL Mcleod # (Auto) 0.05 L (0.11-0.59) K/uL BUN 37 H (6-23) mg/dl Creatinine 3.20 H (0.6-1.4) mg/dl Glucose 180 H (70-99(Fasting)) mg/dl Calcium 7.9 L (8.6-10.3) mg/dl Total Bilirubin 1.3 H (0.2-1.0) mg/dl Direct Bilirubin 0.4 H (0-0.2) mg/dl AST 59 H (13-39) U/L ALT 55 H (7-52) U/L Alkaline Phosphatase 156 H (34-104) U/L Albumin 2.9 L (3.4-5.0) gm/dl Lipase < 3 L (11-82) U/L Procalcitonin 7.62 H (0-0.5) ng/ml Urine Appearance Cloudy A (Clear) Urine Protein 2+ H (Negative) Urine Blood 3+ H (Negative) Ur Leukocyte Esterase Trace H (Negative) Urine RBC (Auto) >20 H (0-2) /hpf Crossmatch 09/17/23 Range/Units 17:47 WBC (4.8-10.8) K/ul RBC (4.70-6.10) M/uL Hgb (14.0-18.0) g/dl Hct (42.0-52.0) % RDW Std Deviation (36.4-46.3) fL RDW Coeff of Bess (11.5-14.5) % MPV (9.4-12.4) fL Lymph # (Auto) (1.20-3.40) K/uL Mcleod # (Auto) (0.11-0.59) K/uL BUN (6-23) mg/dl Creatinine (0.6-1.4) mg/dl Glucose (70-99(Fasting)) mg/dl Calcium (8.6-10.3) mg/dl Total Bilirubin (0.2-1.0) mg/dl Direct Bilirubin (0-0.2) mg/dl AST (13-39) U/L ALT (7-52) U/L Alkaline Phosphatase (34-104) U/L Albumin (3.4-5.0) gm/dl Lipase (11-82) U/L Procalcitonin (0-0.5) ng/ml Urine Appearance (Clear) Urine Protein (Negative) Urine Blood (Negative) Ur Leukocyte Esterase (Negative) Urine RBC (Auto) (0-2) /hpf Crossmatch See Detail Diagnostic Findings cc: ~ ABDOMEN AND PELVIS CT WITHOUT CONTRAST CT DOSE: 2106. mGy.cm HISTORY: Acute renal failure arf, pancreatic ca TECHNIQUE: Multiaxial CT images of the abdomen and pelvis were performed without contrast. A dose lowering technique was utilized adhering to the principles of ALARA. COMPARISON STUDY: CT 07/27/2023 FINDINGS: Cardiomegaly with decreased attenuation of the cardiac blood pool. Trace pericardial effusion. Moderate coronary artery calcifications. Bibasilar groundglass densities with mucus plugging. No free air identified. 15.7 cm spleen. Unremarkable adrenal glands. There is a stent device attending from the stomach into the gallbladder. Gallbladder wall thickening with perivesicular stranding. Debris within the gallbladder lumen is noted with pneumobilia. A common bile duct stent is also in place. Heterogeneity of the liver. Indeterminate 6 mm hypodense focus of the hepatic dome is unchanged. The liver is heterogeneous. Pancreatic head mass redemonstrated measuring approximately 3.7 cm. Periportal lymph nodes measure up to 1.3 cm, similar to prior. Wall thickening of the distal stomach is likely reactive. Bilateral nephrolithiasis. Calculi of the left kidney measures up to 10 mm. Calculi of the right kidney measure up to 12 mm cyst in the inferior pole. Linear 9 mm calculus in the proximal left ureter. There is mild left-sided hydroureteronephrosis. Mild to moderate right-sided hydroureteronephrosis secondary to to proximal right ureteral calculi measuring 9 and 10 mm re spectively at the level of L2. Bilateral perinephric stranding. Urinary bladder wall thickening with partial distention. Layering stone fragments in the dependent left aspect of the urinary bladder. Prostamegaly. Small fat filled inguinal hernias with hydroceles. Distal esophageal wall thickening. Small hiatal hernia. Is nonspecific wall thickening of the rectosigmoid with adjacent inflammatory stranding. Colonic diverticulosis without acute diverticulitis. There is additional wall thickening of the ascending colon. Noninflamed appendix. No new bone lesions are identified. IMPRESSION: 1. Moderate right-sided hydroureteronephrosis secondary to two obstructing proximal right ureteral calculi measuring up to 10 mm. 2. Mild left-sided hydroureteronephrosis secondary to an obstructing 9 mm calculus within the proximal left ureter. 3. Bilateral nephrolithiasis with urinary bladder calculi. 4. Similar size of the pancreatic head mass with periportal lymphadenopathy. 5. Contracted gallbladder with wall thickening and pericholecystic edema again noted. Common bile duct stent is in place. 6. Nonspecific wall thickening of the rectosigmoid and ascending colon with adjacent inflammatory stranding. Correlate clinically to exclude a nonspecific proctocolitis. 7. Additional findings as above. CT head/brain wo con CLINICAL HISTORY: 58 years-old Male with ams, somnloence, panc ca. Acutely altered mental status TECHNIQUE: Multiple axial CT images of the head were obtained without contrast. A dose lowering technique was utilized adhering to the principles of ALARA. COMPARISON: 09/13/2016 FINDINGS: No acute intracranial hemorrhage, midline shift, intra-axial mass, hydrocephalus, territorial ischemia or abnormal extra-axial collection. Encephalomalacia related to chronic right MCA infarct. 1.7 cm extra-axial calcification adjacent to the superior frontal lobe on image 25 series 3 again noted which may represent a meningioma. Involutional changes. The calvarium is intact. The paranasal sinuses, mastoid air cells, and middle ear cavities are clear. IMPRESSION: 1. No acute intracranial abnormality. 2. Chronic right MCA infarct.
[2023-09-17] MEDS: cefTRIAXone SODIUM 2,000 MG/50 ML BAG IV STA (18:54)
[2023-09-17] MEDS ORDERED: fentaNYL citrate PF 100 MCG/2 ML VIAL IV PRN (19:21)
[2023-09-17] MEDS ORDERED: ONDANSETRON INJ 2 MG/ML 2 ML VIAL IV PRN (19:21)
[2023-09-17] MEDS ORDERED: ePHEDrine sulfate 50 MG/ML AMP IV PRN (19:21)
[2023-09-17] MEDS ORDERED: ATROPINE SULFATE 0.1 MG/ML 10ML SYR IV PRN (19:21)
[2023-09-17] MEDS ORDERED: ONDANSETRON INJ 2 MG/ML 2 ML VIAL ONE (19:43)
[2023-09-17] MEDS ORDERED: PROPOFOL IV EMULSION 10 MG/ML 20 ML VIAL IV ONE (19:43)
[2023-09-17] MEDS ORDERED: LIDOCAINE 2% 2 ML VIAL/AMP(20MG/ML) INFIL ONE (19:43)
[2023-09-17] MEDS: DIATRIZOATE MEGLUMINE 30% 100ML VIAL INSTIL ONE (19:49)
--- NOTE | 2023-09-17 19:53 | Operative Report ---
PG Post Operative Report Pre & Post Diagnosis Operation Date: 09/17/23 18:45 Pre-Op Diagnosis: (1) Hydronephrosis due to obstruction of ureter (2) Ureterolithiasis (3) Acute renal failure Post-Op Diagnosis: (1) Hydronephrosis due to obstruction of ureter (2) Ureterolithiasis (3) Acute renal failure I identified the patient and participated in the time-out.: Yes Procedure Operation Date: 09/17/23 18:45 Actual Procedures p Cystoscopy, Retrograde Pyleogram with Bilateral Stent Insertion(Not Applicable) - Carlin Ortega MD Surgeon Carlin Ortega MD [employer] None Estimated Blood Loss 0 Findings Consistent with Post-Op Diagnosis Specimens None Drains 6 Mexican by 26 cm double-J ureteral stents in bilateral ureters Anesthesia Type MAC Complications none Disposition Accompanied Patient To Recovery: Yes Disposition: Recovery Room Indications This is a 58-year-old male who presented to the emergency department and was found to have bilateral ureteral stones and elevated creatinine. He is being brought to the OR for bilateral ureteral stent placement. Description of Procedure The patient was identified in the holding area and informed consent was confirmed. He was taken to the operating room where anesthesia was initiated. He was placed in the dorsal lithotomy position with all pressure points appropriately padded. He was prepped and draped in the usual sterile fashion and a preoperative timeout was performed. A well-lubricated cystoscope was inserted per urethra and panendoscopy was performed. The pendulous urethra was normal with no strictures or mucosal abnormalities. The prostate was of normal size. Bladder was somewhat trabeculated with a fair amount of stone debris in the lumen. This was evacuated out through the sheath with the cystoscope. Ureteral orifices were in orthotopic position bilaterally. A 5 Mexican open-ended catheter was inserted and used to intubate the right ureteral orifice. A retrograde pyelogram was performed using Cystografin. The ureter was normal in course and caliber up to an abrupt cessation of contrast, likely where the stones were lodged. A 0.038 inch zip wire was advanced up to the kidney under fluoroscopic guidance. Over the wire, a 6 Mexican x 26 cm double-J ureteral stent was advanced. When the wire was removed, there was a good curl in the kidney under fluoroscopic guidance. A curl was visualized in the bladder with the cystoscope. There was good drainage of urine through the stent. In a similar fashion, the left ureteral orifice was cannulated with the open- ended catheter. Although I tried to advance contrast into this area, it just drained out into the bladder. Zip wire was advanced to the left kidney under fluoroscopic guidance. Over the wire, a 6 Mexican by 26 cm double-J ureteral stent was advanced. The proximal curl was positioned at the level of the renal pelvis and the distal curl was seen in the bladder. At this point the bladder was drained and all instrumentation was removed. The patient was then awakened from anesthesia and was brought to the PACU in st able condition. I attest to the content of the Intraoperative Record and any orders documented therein. Any exceptions are noted below.
--- NOTE | 2023-09-17 20:08 | Anesthesiology Progress Note ---
Date of Service September 17, 2023 Anesthesia Post Procedure Vital Signs Vital Signs: Temp Pulse Pulse Resp BP BP Pulse Ox 09/17/23 19:57 36.3 C L 76 16 94/53 L 98 09/17/23 17:30 75 12 09/17/23 17:30 101/51 L 09/17/23 17:20 75 12 09/17/23 17:10 76 12 98 09/17/23 17:02 84 13 09/17/23 16:50 87 15 09/17/23 16:40 79 19 87 L 09/17/23 16:30 129/71 09/17/23 16:30 72 15 100 09/17/23 16:24 77 99 09/17/23 16:10 78 15 100 09/17/23 16:00 125/81 09/17/23 16:00 77 13 100 09/17/23 16:00 77 09/17/23 15:50 77 14 99 09/17/23 15:40 78 22 97 09/17/23 15:30 117/77 09/17/23 15:30 80 14 95 09/17/23 15:20 80 12 94 09/17/23 15:19 97 09/17/23 15:10 79 21 95 09/17/23 15:09 80 15 96 09/17/23 15:09 36.8 C 81 14 122/73 97 09/17/23 15:08 122/73 O2 Del Method O2 Flow Rate 09/17/23 19:57 Oxymask 4 09/17/23 17:30 09/17/23 17:30 09/17/23 17:20 09/17/23 17:10 09/17/23 17:02 09/17/23 16:50 09/17/23 16:40 09/17/23 16:30 09/17/23 16:30 09/17/23 16:24 09/17/23 16:10 09/17/23 16:00 09/17/23 16:00 09/17/23 16:00 09/17/23 15:50 09/17/23 15:40 09/17/23 15:30 09/17/23 15:30 09/17/23 15:20 09/17/23 15:19 Room Air 09/17/23 15:10 09/17/23 15:09 09/17/23 15:09 Room Air 09/17/23 15:08 Transfer of Care Handoff Completed per policy Notes Mental Status: alert / awake / arousable Patient Amnestic to Procedure: Yes Nausea / Vomiting: adequately controlled Pain: adequately controlled Airway Patency, RR, SpO2: stable & adequate BP & HR: stable & adequate Hydration State: stable & adequate Anesthetic Complications: no major complications apparent
[2023-09-17] MEDS ORDERED: PANTOprazole 40 MG in SYRINGE 0 ML IV SCH (21:00)
[2023-09-17] MEDS ORDERED: GLUCOSE 40% GEL 15 GM TUBE PO PRN (21:10)
[2023-09-17] MEDS ORDERED: GLUCAGON FOR INJ 1 MG VIAL SQ PRN (21:10)
[2023-09-17] MEDS ORDERED: DEXTROSE 50% 50 ML SYRINGE IV PRN (21:10)
[2023-09-17] MEDS ORDERED: CARBOHYDRATES FOR HYPOGLYCEMIA PO PRN (21:10)
[2023-09-17] MEDS ORDERED: ACETAMINOPHEN 325 MG TAB PO PRN (21:10)
[2023-09-17] MEDS ORDERED: POLYETHYLENE (MIRALAX) 17 GM PACK PO PRN (21:10)
[2023-09-17] MEDS ORDERED: GLUCOSE 10 TAB/TUBE PO PRN (21:10)
[2023-09-17] MEDS ORDERED: Nursing to Pharmacy Communication SCH ×3 (21:30)
[2023-09-17] MEDS: SODIUM CHLORIDE 0.9% 500 ML IV SCH (22:32)
[2023-09-17] MEDS: PIPERACILLIN/TAZOBACTAM 4.5 GM in DEXTROSE 5% MINI-B 100 ML IV ONE (22:44)
[2023-09-17] MEDS: PANTOprazole 40 MG in DEXTROSE 5% MINI-B 100 ML IV SCH (23:18)
[2023-09-17 23:30] LABS: Hematocrit (blood only) 23.9 % (42.0-52.0); Hemoglobin 7.6 g/dl (14.0-18.0)
[2023-09-17] MEDS: OLANZapine 10 MG/2.1 ML SDV IM STA (23:46)
[2023-09-18] MEDS: INSULIN ASPART PER UNIT CHARGE SC SCH (00:02)
[2023-09-18] MEDS: OLANZapine 10 MG/2.1 ML SDV IM STA (04:47)
[2023-09-18] MEDS: PIPERACILLIN/TAZOBACTAM 4.5 GM in DEXTROSE 5% MINI-B 100 ML IV SCH (05:30)
--- NOTE | 2023-09-18 07:07 | Fluoroscopy Report ---
FL KUB CLINICAL HISTORY: B/L CYSTO COMPARISON STUDY: 09/17/2023. FLUOROSCOPY TIME: 16 seconds FLUOROSCOPY IMAGES: 6 Ka,r: 3.3 mGy FINDINGS: Retrograde opacification of the bilateral renal collecting systems followed by placement of a left ureteral stent. Only the proximal portion of the stent is identified but appears in good posi tion. Incidental note is made of common bile duct and duodenal stents within the right upper quadrant . IMPRESSION: Fluoroscopic assistance as above. ACT 112: Negative or not required by law. Electronically signed by: Keegan Galo M.D. 09/18/2023 7:06 AM
--- NOTE | 2023-09-18 07:56 | Urology Progress Note ---
Date of Service September 18, 2023 Assessment & Plan (1) Hydronephrosis due to obstruction of ureter: (2) Acute renal failure: Plan - POD #1 s/p Cystoscopy, Retrograde Pyelogram with Bilateral Stent Insertion with Dr. Ortega - Afebrile, mildly hypotensive - Labs today - hemoglobin 6.7 (7.6 yesterday); creatinine 3.22; white count 1.69 - Urine and blood cultures pending - Voiding spontaneously, has condom cath in place. Urine is light red. Bladder scanned for 121ml this morning per nursing. Continue to monitor. - No plan for further intervention. - Recommend checking bladder scans to ensure he is emptying his bladder. - If found to be in urinary retention, would recommend Nevarez catheter placement. - Continue antibiotics and tailor as culture data becomes available - Continue to trend labs. Transfuse as felt necessary per primary team. - Pt will need outpt follow-up with our service to discuss definitive stone treatment. - Urology will follow along. Admission and Anticipated Discharge Date Admission Date: September 17, 2023 Subjective Pt examined at bedside this AM. Resting in bed on arrival Nurse at bedside Opens eyes to name. Did not respond verbally. Condom cath in place with light red urine in tubing. Pt was bladder scanned for 121ml this morning per nursing. Review of Systems Constitutional: as per Subjective / HPI Genitourinary: + as per Subjective / HPI Physical Exam Constitutional: + ill appearing; no acute distress Respiratory: no respiratory distress and no labored breathing Neurologic: awake Psychiatric: Orientation: alert Genitourinary: Condom cath in place with light red urine in tubing. Results & Data Vital Signs (Past 12 Hours) Vital Signs Temp Pulse Pulse Resp BP Pulse Ox O2 Del Method 09/18/23 07:46 36.9 C 89 10 L 99/50 L 95 Room Air 09/18/23 03:40 36.5 C 102 H 20 104/64 95 Room Air 09/18/23 00:17 36.7 C 102 H 17 111/61 96 Room Air 09/18/23 00:00 100 H 09/17/23 21:25 Room Air 09/17/23 21:15 92 H 09/17/23 21:15 36.7 C 89 17 119/99 97 Room Air 09/17/23 20:45 71 12 102/62 96 Room Air 09/17/23 20:35 75 12 112/64 97 Room Air 09/17/23 20:25 37.0 C 73 12 101/80 97 Room Air 09/17/23 20:15 86 22 101/53 L 98 Oxymask 09/17/23 20:05 75 18 90/49 L 97 Oxymask 09/17/23 19:57 36.3 C L 76 16 94/53 L 98 Oxymask O2 Flow Rate 09/18/23 07:46 09/18/23 03:40 09/18/23 00:17 09/18/23 00:00 09/17/23 21:25 09/17/23 21:15 09/17/23 21:15 09/17/23 20:45 09/17/23 20:35 09/17/23 20:25 09/17/23 20:15 4 09/17/23 20:05 4 09/17/23 19:57 4 PG Care Time/CCT Total # of Minutes Spent Total Time Spent with Patient: Total time spent is greater than 50% in coordination of care (as documented) at patient's floor/unit and/or counseling patient: Coding Level of Care Code 07828 SUB INP/OBS CARE 2MIN Diagnoses Hydronephrosis due to obstruction of ureter N13.1 Acute renal failure N17.9 Acute renal failure type: unspecified (2) Acute renal failure Acute renal failure type: unspecified Qualified Code(s): N17.9 - Acute kidney failure, unspecified
--- NOTE | 2023-09-18 08:53 | Electrocardiogram Report ---
Test Reason : Blood Pressure : / mmHG Vent. Rate : 103 BPM Atrial Rate : 103 BPM P-R Int : 138 ms QRS Dur : 076 ms QT Int : 368 ms P-R-T Axes : 063 053 046 degrees QTc Int : 482 ms Poor data quality, interpretation may be adversely affected Sinus tachycardia Nonspecific ST and T wave abnormality Abnormal ECG When compared with ECG of 17-SEP-2023 15:16, (unconfirmed) No significant change was found Confirmed by Bharat Soria ([id number]) on 09/18/2023 8:52:45 AM Referred By: Mati Sanabria Confirmed By:Paul Soria
--- NOTE | 2023-09-18 09:02 | Electrocardiogram Report ---
Test Reason : Blood Pressure : / mmHG Vent. Rate : 081 BPM Atrial Rate : 081 BPM P-R Int : 158 ms QRS Dur : 080 ms QT Int : 404 ms P-R-T Axes : 055 055 048 degrees QTc Int : 469 ms Normal sinus rhythm Nonspecific ST abnormality Abnormal ECG When compared with ECG of 27-JUL-2023 02:53, ST no longer depressed in Lateral leads Nonspecific T wave abnormality, improved in Inferior leads Nonspecific T wave abnormality no longer evident in Lateral leads Confirmed by Bharat Soria ([id number]) on 09/18/2023 9:01:50 AM Referred By: Mati Sanabria Confirmed By:Paul Soria
[2023-09-18] MEDS: FLUoxetine HCL 20 MG CAP PO SCH (09:12)
[2023-09-18] MEDS: METOPROLOL TARTRATE 50 MG TAB PO SCH (09:13)
[2023-09-18] MEDS: THIAMINE HCL 100 MG TAB PO SCH (09:13)
[2023-09-18] MEDS: FOLIC ACID 1 MG TAB PO SCH (09:13)
[2023-09-18 09:46] LABS: Hematocrit (blood only) 20.8 % (42.0-52.0); Hemoglobin 6.7 g/dl (14.0-18.0)
[2023-09-18 09:47] LABS: Mean Corpuscular Hemoglobin 26.5 pg (25.0-34.0); Mean Corpuscular Hgb Conc 32.2 g/dL (32.0-36.0); Mean Corpuscular Volume 82.2 fL (80.0-100.0); Mean Platelet Volume 8.8 fL (9.4-12.4); Platelet Count 115 K/uL (130-400); RDW Coefficient of Variation 16.7 % (11.5-14.5); RDW Standard Deviation 50.4 fL (36.4-46.3); Red Blood Count 2.53 M/uL (4.70-6.10); White Blood Count 1.69 K/ul (4.8-10.8)
[2023-09-18] MEDS ORDERED: SODIUM CHLORIDE 0.9% 250 ML IV PRN (09:57)
[2023-09-18 09:58] LABS: Albumin Level 2.7 gm/dl (3.4-5.0); BUN Creatinine Ratio 11.8 (10-20); Bilirubin,Total 1.6 mg/dl (0.2-1.0); Calcium 7.9 mg/dl (8.6-10.3); Est GFR (African American) 23.4 ml/min; Est GFR (Non-African American) 20.2 ml/min; Globulin 2.8 gm/dl (2.5-4.0); Total Protein 5.5 gm/dl (6.0-8.3)
--- NOTE | 2023-09-18 10:41 | Gastrointestinal Consultation ---
Date of Consultation September 18, 2023 Assessment & Plan (1) Anemia: (2) Hematemesis: Plan Patient's notes that due to his current clinical picture, they would decline EGD at this time. We discussed the limitations of this option and they are aware of the risks. They wish to continue PPI therapy. Can use IV Protonix gtt with transition to BID push. Continue to monitor H/H & transfusion protocol per primary team. Please contact GI if patient/ change their mind regarding their options moving forward. Supervising Physician Co-Signing Physician Notes Agree with JORDAN Hameed as above Interviewed and examined patient and agree with above Patient and family do not want to undergo any invasive GI testing at present Continue current therapy and supportive care. History of Present Illness Reason for Consultation: Hematemesis Attending Physician: Amina Castellano MD History of Present Illness Patient is a 58 yo male with PMH of pancreatic cancer with mets who presented to the ED due to issues with stones in the kidneys, ureter & bladder for which he is seeing urology. Upon review of his chart it appear he has been struggling with anemia for some time. GI has been consulted due to reports of hematemesis & anemia. notes that prior to coming to the hospital Demar had an episode of hematemesis with dark brown/red emesis. No melena or hematochezia. His H/H presently is 6.7/20.8. He takes Plavix at home in addition to Protonix 40 mg BID. They deny NSAID use otherwise. No pertinent family history. No history of PUD. CT abdomen/pelvis read as follows: IMPRESSION: 1. Moderate right-sided hydroureteronephrosis secondary to two obstructing proximal right ureteral calculi measuring up to 10 mm. 2. Mild left-sided hydroureteronephrosis secondary to an obstructing 9 mm calculus within the proximal left ureter. 3. Bilateral nephrolithiasis with urinary bladder calculi. 4. Similar size of the pancreatic head mass with periportal lymphadenopathy. 5. Contracted gallbladder with wall thickening and pericholecystic edema again noted. Common bile duct stent is in place. 6. Nonspecific wall thickening of the rectosigmoid and ascending colon with adjacent inflammatory stranding. Correlate clinically to exclude a nonspecific proctocolitis. Allergies Allergy/AdvReac Type Severity Reaction Status Date / Time No Known Allergies Allergy Verified 07/27/23 02:56 Home Medications Medication Instructions Recorded Confirmed Type aspirin 81 mg capsule 81 mg PO DAILY 05/29/23 09/17/23 History baclofen 10 mg tablet 15 mg PO QID 05/29/23 09/17/23 History clopidogrel 75 mg tablet 75 mg PO DAILY 05/29/23 09/17/23 History ezetimibe 10 mg tablet 10 mg PO DAILY 05/29/23 09/17/23 History fluoxetine 40 mg capsule 40 mg PO DAILY 05/29/23 09/17/23 History folic acid 1 mg tablet 1 mg PO DAILY 05/29/23 09/17/23 History losartan 50 mg tablet 50 mg PO DAILY 05/29/23 09/17/23 History metoprolol tartrate 50 mg tablet 50 mg PO DAILY 05/29/23 09/17/23 History thiamine HCl (vitamin B1) 100 mg 100 mg PO DAILY 05/29/23 09/17/23 History tablet acetaminophen 500 mg tablet 500 mg PO DIRECTED PRN 07/27/23 09/17/23 History (Tylenol Extra Strength) PAIN/FEVER diphenhydramine HCl 25 mg capsule 25 mg PO Q6H PRN Itching 07/27/23 09/17/23 History (Benadryl) insulin glargine 100 unit/mL (3 10 unit subcut QAM 07/27/23 09/17/23 History mL) subcutaneous pen (Lantus Solostar U-100 Insulin) metformin 500 mg tablet,extended 500 mg PO BID 07/27/23 09/17/23 History release 24 hr oxycodone 5 mg tablet 2.5 mg PO Q6H PRN Pain 07/27/23 09/17/23 History pantoprazole 40 mg tablet,delayed 40 mg PO BID #60 tabs 07/31/23 09/17/23 Rx release (Protonix) polyethylene glycol 3350 17 gram 17 g PO DAILY PRN constipation #30 07/31/23 09/17/23 Rx oral powder packet (Miralax) ea Patient History Medical History DMII (diabetes mellitus, type 2) Anxiety History of tobacco use Focal dystonia Benign meningioma of brain Left hemiplegia Left spastic hemiparesis Adhesive capsulitis of left shoulder 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 Fatty liver Obesity Arteriosclerosis of coronary artery CAD (coronary artery disease) Cerebral atherosclerosis HTN (hypertension) Carotid stenosis, symptomatic, with infarction Hyperlipidemia Surgical History S/P tonsillectomy and adenoidectomy S/P carotid endarterectomy Family History Mother Diabetes Social History Smoking Status: Never smoker Hx Alcohol Use: No Hx Substance Use: No Preferred Language: Lithuanian Communication Ability: Effective 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 Worker Required: No Beliefs That Will Affect Care: None marital status: Current Living Situation: Spouse Current Living Situation Comment: Lives at home with current occupational status: disabled Other Information That Helps Us Care for You: No Feels Safe at Home: Yes Safety Concerns: Feels Safe At This Time Assistive Devices: Cane, Glasses and Wheelchair Assistive Devices Comment: Left leg brace Review of Systems Gastrointestinal: + hematemesis; no abdominal pain Physical Exam Constitutional: + ill appearing Respiratory: normal respiratory effort Gastrointestinal (Abdomen): normal bowel sounds, soft, nontender, no hepatosplenomegaly Psychiatric: Orientation: alert Results & Data Vital Signs (Past 12 Hours) Vital Signs Temp Pulse Pulse Resp BP Pulse Ox O2 Del Method 09/18/23 09:24 88 18 95/54 L 98 Room Air 09/18/23 09:13 Room Air 09/18/23 07:46 36.9 C 89 10 L 99/50 L 95 Room Air 09/18/23 03:40 36.5 C 102 H 20 104/64 95 Room Air 09/18/23 00:17 36.7 C 102 H 17 111/61 96 Room Air 09/18/23 00:00 100 H PG Care Time/CCT Total # of Minutes Spent Total Time Spent with Patient: Total time spent is greater than 50% in coordination of care (as documented) at patient's floor/unit and/or counseling patient: Coding Level of Care Code 49472 IN/OBS CONSULT LVL 4,60M Diagnoses Anemia D64.9 Anemia type: unspecified type Hematemesis K92.0 (1) Anemia Anemia type: unspecified type Qualified Code(s): D64.9 - Anemia, unspecified
--- NOTE | 2023-09-18 14:39 | Hospitalist Progress Note ---
Date of Service September 18, 2023 Assessment & Plan (1) Acute renal failure: (2) Other ureteric obstruction: (3) Ureterolithiasis: Plan: 58-year-old man with history of CVA with left hemiplegia, diabetes mellitus type 2, pancreatic cancer metastasized to the liver, CAD, hypertension, Recent hospitalization from 07/28/2023 to 07/31/2023 for acute cholecystitis and required 2 PRBC during the admission, status post EUS guided GB drainage and Axios stent placement on 08/11/2023, Who presented today ER with hematuria that started yesterday CT abdomen pelvis noted moderate right-sided hydroureteronephrosis due to 2 obstructing proximal right ureteric calculi measuring up to 10 mm, mild left- sided hydroureteronephrosis secondary to an obstructing 9 mm calculus in the proximal left ureter, bilateral nephrolithiasis with urinary bladder calculi. Other findings include similar size of pancreatic head mass with periportal lymphadenopathy, contracted gallbladder with wall thickening and Kedar cholecystic edema, CBD stent in place. Nonspecific wall thickening of the rectosigmoid and ascending colon with adjacent inflammatory stranding. On admission, Labs notable for WBC of 2.35, hemoglobin of 7.2, creatinine of 3.2 [from 0.93 on 07/31/23], total bilirubin of 1.3, direct bilirubin of 0.4, AST of 59, ALT of 55, alkaline phosphatase of 156, procalcitonin of 7.62 Acute renal function due to obstructing ureteric stones. Considering this is bilateral, Urology was consulted in ER Patient had cystoscopy with bilateral stent insertion 09/17/2023 Cr is 3.22 today Continue IVF and monitor Patient's altered mental status at this time may be due to multiple reasons. CT head did not show any acute abnormalities Possibilities include metabolic encephalopathy in the setting of acute kidney injury, medication effect such as baclofen in the setting of reduced renal function [patient took his baclofen this morning] Sepsis is also a possibility with altered mental status, leukopenia in an immunocompromised patient on chemotherapy. Elevated procalcitonin. Continue zosyn for now Follow-up blood cultures and urine cultures in lab Drowsy this morning likely from Zyprexa overnight. Will keep n.p.o. and assess swallowing when patient is more awake to advance diet (4) Anemia: Plan: Chronic anemia On admission Hb was 7.2 Was 8.8 on 09/15/23 outpatient Acute on chronic anemia Possibly due to hematuria reported 2 episodes of hematemesis Hence Upper GI bleed is possible GI evaluated and noted currently declines EGD at this time and wished to continue PPI therapy. reports she wants to continue PPI for now and see how he does. To get 1 PRBC today as hemoglobin dropped to 6.7 this morning Monitor hemoglobins transfuse as needed to keep hemoglobin above 7 (5) Pancreatic cancer: (6) Elevated LFTs: (7) Transaminitis: Plan: AST, ALT, alk phos though elevated, and mildly improved compared to outpatient LFT on 09/15/2023. Likely related to metastatic pancreatic cancer on chemo. Will monitor. Tbil is elevated at 1.6 (8) HTN (hypertension): Plan: Blood pressure currently borderline. Continue to hold home losartan Monitor blood pressure (9) DMII (diabetes mellitus, type 2): Plan: Per , patient was on Lantus 10 units daily and metformin 500 mg twice daily. Hold home metformin. Continue Accu-Cheks every 6 hourly for now Will change to ACHS when able to start diet. (10) CAD (coronary artery disease): Plan: History of CAD. Holding home aspirin and Plavix for now in view of acute anemia/recent procedure Will reassess later (11) DVT prophylaxis: Plan: SCD for now Code Status: DNR per Dispo: PCU I spent a total of 50 minutes coordinating, documenting and providing care for this patient excluding time spent in performance of separately billed services Admission and Anticipated Discharge Date Admission Date: September 17, 2023 Subjective Patient seen and examined this morning. Per color repairer, patient was agitated overnight and required IM Zyprexa. Patient is currently drowsy. at bedside. Per RN,No hematemesis/melena/hematochezia noted since admission. Review of Systems Review of Systems: Unable to obtain review of systems due to drowsiness Physical Exam Constitutional: + well hydrated; no acute distress Drowsy. Opens eyes to call and then falls back to sleep Eyes: PERRL, conjunctivae normal, anicteric sclerae ENMT: external ear and nose normal, oropharynx normal Respiratory: normal respiratory effort, lungs clear to auscultation Cardiovascular: Rate/Rhythm: regular rate and regular rhythm S1-S2 Gastrointestinal (Abdomen): normal bowel sounds, soft, nontender, no hepatosplenomegaly Musculoskeletal: No pedal edema Neurologic: Drowsy. Limited exam Chronic left hemiplegia Genitourinary: Nevarez in situ Results & Data Results & Data Vital Signs (Past 12 Hours) Vital Signs Temp Pulse Pulse Resp BP BP Pulse Ox 09/18/23 14:11 36.8 C 97 H 18 107/69 95 09/18/23 13:26 37.0 C 92 H 18 116/66 98 09/18/23 12:26 37.0 C 98 H 14 109/55 L 96 09/18/23 11:56 37.3 C 97 H 15 104/62 94 09/18/23 11:41 37.2 C 97 H 22 101/83 95 09/18/23 11:24 37.0 C 95 H 18 119/83 94 09/18/23 09:24 88 18 95/54 L 98 09/18/23 09:13 09/18/23 07:57 113 H 09/18/23 07:46 36.9 C 89 10 L 99/50 L 95 09/18/23 03:40 36.5 C 102 H 20 104/64 95 O2 Del Method 09/18/23 14:11 09/18/23 13:26 09/18/23 12:26 09/18/23 11:56 09/18/23 11:41 09/18/23 11:24 09/18/23 09:24 Room Air 09/18/23 09:13 Room Air 09/18/23 07:57 09/18/23 07:46 Room Air 09/18/23 03:40 Room Air Laboratory Results Abnormal lab results 09/17/23 09/17/23 09/17/23 Range/Units 15:12 15:21 17:00 WBC 2.35 L (4.8-10.8) K/ul RBC 2.72 L (4.70-6.10) M/uL Hgb 7.2 L (14.0-18.0) g/dl Hct 22.2 L (42.0-52.0) % RDW Std Deviation 48.2 H (36.4-46.3) fL RDW Coeff of Bess 16.4 H (11.5-14.5) % Plt Count (130-400) K/uL MPV 9.1 L (9.4-12.4) fL Lymph # (Auto) 0.18 L (1.20-3.40) K/uL Beckham # (Auto) 0.05 L (0.11-0.59) K/uL Chloride (98-107) mmol/L BUN 37 H (6-23) mg/dl Creatinine 3.20 H (0.6-1.4) mg/dl Glucose 180 H (70-99(Fasting)) mg/dl POC Glucose (70-99) mg/dl Calcium 7.9 L (8.6-10.3) mg/dl Total Bilirubin 1.3 H (0.2-1.0) mg/dl Direct Bilirubin 0.4 H (0-0.2) mg/dl AST 59 H (13-39) U/L ALT 55 H (7-52) U/L Alkaline Phosphatase 156 H (34-104) U/L Total Protein (6.0-8.3) gm/dl Albumin 2.9 L (3.4-5.0) gm/dl Lipase < 3 L (11-82) U/L Procalcitonin 7.62 H (0-0.5) ng/ml Urine Appearance Cloudy A (Clear) Urine Protein 2+ H (Negative) Urine Blood 3+ H (Negative) Ur Leukocyte Esterase Trace H (Negative) Urine RBC (Auto) >20 H (0-2) /hpf Crossmatch 09/17/23 09/17/23 09/17/23 Range/Units 17:47 20:09 21:17 WBC (4.8-10.8) K/ul RBC (4.70-6.10) M/uL Hgb (14.0-18.0) g/dl Hct (42.0-52.0) % RDW Std Deviation (36.4-46.3) fL RDW Coeff of Bess (11.5-14.5) % Plt Count (130-400) K/uL MPV (9.4-12.4) fL Lymph # (Auto) (1.20-3.40) K/uL Beckham # (Auto) (0.11-0.59) K/uL Chloride (98-107) mmol/L BUN (6-23) mg/dl Creatinine (0.6-1.4) mg/dl Glucose (70-99(Fasting)) mg/dl POC Glucose 179 H 144 H (70-99) mg/dl Calcium (8.6-10.3) mg/dl Total Bilirubin (0.2-1.0) mg/dl Direct Bilirubin (0-0.2) mg/dl AST (13-39) U/L ALT (7-52) U/L Alkaline Phosphatase (34-104) U/L Total Protein (6.0-8.3) gm/dl Albumin (3.4-5.0) gm/dl Lipase (11-82) U/L Procalcitonin (0-0.5) ng/ml Urine Appearance (Clear) Urine Protein (Negative) Urine Blood (Negative) Ur Leukocyte Esterase (Negative) Urine RBC (Auto) (0-2) /hpf Crossmatch See Detail 09/17/23 09/17/23 09/18/23 Range/Units 22:33 23:56 05:21 WBC (4.8-10.8) K/ul RBC (4.70-6.10) M/uL Hgb 7.6 L (14.0-18.0) g/dl Hct 23.9 L (42.0-52.0) % RDW Std Deviation (36.4-46.3) fL RDW Coeff of Bess (11.5-14.5) % Plt Count (130-400) K/uL MPV (9.4-12.4) fL Lymph # (Auto) (1.20-3.40) K/uL Beckham # (Auto) (0.11-0.59) K/uL Chloride (98-107) mmol/L BUN (6-23) mg/dl Creatinine (0.6-1.4) mg/dl Glucose (70-99(Fasting)) mg/dl POC Glucose 168 H 151 H (70-99) mg/dl Calcium (8.6-10.3) mg/dl Total Bilirubin (0.2-1.0) mg/dl Direct Bilirubin (0-0.2) mg/dl AST (13-39) U/L ALT (7-52) U/L Alkaline Phosphatase (34-104) U/L Total Protein (6.0-8.3) gm/dl Albumin (3.4-5.0) gm/dl Lipase (11-82) U/L Procalcitonin (0-0.5) ng/ml Urine Appearance (Clear) Urine Protein (Negative) Urine Blood (Negative) Ur Leukocyte Esterase (Negative) Urine RBC (Auto) (0-2) /hpf Crossmatch 09/18/23 09/18/23 Range/Units 09:17 11:54 WBC 1.69 L (4.8-10.8) K/ul RBC 2.53 L (4.70-6.10) M/uL Hgb 6.7 L* (14.0-18.0) g/dl Hct 20.8 L* (42.0-52.0) % RDW Std Deviation 50.4 H (36.4-46.3) fL RDW Coeff of Bess 16.7 H (11.5-14.5) % Plt Count 115 L (130-400) K/uL MPV 8.8 L (9.4-12.4) fL Lymph # (Auto) (1.20-3.40) K/uL Beckham # (Auto) (0.11-0.59) K/uL Chloride 110 H (98-107) mmol/L BUN 38 H (6-23) mg/dl Creatinine 3.22 H (0.6-1.4) mg/dl Glucose 153 H (70-99(Fasting)) mg/dl POC Glucose 169 H (70-99) mg/dl Calcium 7.9 L (8.6-10.3) mg/dl Total Bilirubin 1.6 H (0.2-1.0) mg/dl Direct Bilirubin (0-0.2) mg/dl AST 47 H (13-39) U/L ALT (7-52) U/L Alkaline Phosphatase 131 H (34-104) U/L Total Protein 5.5 L (6.0-8.3) gm/dl Albumin 2.7 L (3.4-5.0) gm/dl Lipase (11-82) U/L Procalcitonin (0-0.5) ng/ml Urine Appearance (Clear) Urine Protein (Negative) Urine Blood (Negative) Ur Leukocyte Esterase (Negative) Urine RBC (Auto) (0-2) /hpf Crossmatch (1) Acute renal failure Acute renal failure type: unspecified Qualified Code(s): N17.9 - Acute kidney failure, unspecified (5) Pancreatic cancer Pancreatic malignancy location: unspecified Qualified Code(s): C25.9 - Malignant neoplasm of pancreas, unspecified
[2023-09-19 07:10] LABS: Hematocrit (blood only) 20.8 % (42.0-52.0); Hemoglobin 6.6 g/dl (14.0-18.0); Mean Corpuscular Hemoglobin 26.8 pg (25.0-34.0); Mean Corpuscular Hgb Conc 31.7 g/dL (32.0-36.0); Mean Corpuscular Volume 84.6 fL (80.0-100.0); Mean Platelet Volume 9.3 fL (9.4-12.4); Platelet Count 113 K/uL (130-400); RDW Coefficient of Variation 15.9 % (11.5-14.5); RDW Standard Deviation 48.4 fL (36.4-46.3); Red Blood Count 2.46 M/uL (4.70-6.10); White Blood Count 0.83 K/ul (4.8-10.8)
[2023-09-19 07:12] LABS: Albumin Globulin Ratio 0.9 (0.9-2); Albumin Level 2.5 gm/dl (3.4-5.0); BUN Creatinine Ratio 11.7 (10-20); Bilirubin,Total 1.7 mg/dl (0.2-1.0); Creatinine Clr Calc Pharmacy 28.9 ml/min; Est GFR (African American) 25.5 ml/min; Globulin 2.7 gm/dl (2.5-4.0); Potassium 3.8 mmol/L (3.5-5.1); Total Protein 5.2 gm/dl (6.0-8.3)
[2023-09-19] MEDS ORDERED: SODIUM CHLORIDE 0.9% 250 ML IV PRN (07:28)
--- NOTE | 2023-09-19 10:43 | Nephrology Consultation ---
Date of Consultation September 19, 2023 Assessment & Plan (1) Acute renal failure: NATE mainly due to b/l Obstruction but it is not 100% from that. There is likely some component of Acute tubular ischemia/ATN in the setting of Possible GI bleed/severe Anemia and he has had enough iv fluids and is about 3 liters +ve in less than 2 days. so I would lower the rate to 75 ml/hr. also na is rising and Chloride is rising so change to 1/2 ns at 100/hr. expect slower renal recovery given multiple co-morbid issues including metastatic cancer, GI bleed, Dm and so on. as long as we are seeing some renal recovery we are good. He is unlikely to be a dialysis candidate with metastatic pancreatic cancer but I dont think he will need dialysis. Also baclofen is contraindicated with renal failure so there might have been some accumulation with that. That can potentially explain the severe Somnolence he has currently. (2) Hydronephrosis due to obstruction of ureter: S/p b/l ureteric stent for Kidney/Ureter stones. urology following. for now has Condom catheter (3) Pancreatic cancer: Noted and reviewed. Plan Case complexity high and 1hr 10 min spent. History of Present Illness Reason for Consultation: NATE Attending Physician: Amina Castellano MD History of Present Illness 58/M with normal kidney function at baseline as of , history of CVA with left hemiplegia, diabetes mellitus type 2, pancreatic cancer metastasized to the liver, CAD, hypertension. he was Recent hospitalization from 07/28/2023 to 07/31/2023 for acute cholecystitis and required 2 PRBC during that admission, status post EUS guided GB drainage and Axios stent placement on 08/11/2023. He presented to ER on 09/17/2023 with hematuria. found to have ARF with b/l hydro and kidney/ureter stone. Had b/l stent placed by urology on 09/16. Also hgb really dropped low and is from GI bleed. Did get PRBC. was seen by GI but patient family initially refused but now has agreed for EGD. Creat is coming down but slowly and is still 3 and was 3.2 pre Stent placement. on NS at 125 /hr. Patient had chemo on 09/15/2023 [paclitaxel, gemcitabine]. According to he also had some abdominal pain and took 2.5 mg of oxycodone as needed last night. Also took some baclofen ROS--Unable to obtain from the patientas he is very somnolent. Mother at bedside and gave me the history Physical Exam Constitutional: + well hydrated and + lethargic; no acut e distress Eyes: PERRL, conjunctivae normal, anicteric sclerae ENMT: MM moist and pale Respiratory: normal respiratory effort, lungs clear to auscultation Cardiovascular: Rate/Rhythm: regular rate and regular rhythm S1 S2 Gastrointestinal (Abdomen): normal bowel sounds, soft, nontender, no hepatosplenomegaly Musculoskeletal: No pedal edema Neurologic: Lethargic, sluggish response Follows simple commands Left hemiplegia Allergies Allergy/AdvReac Type Severity Reaction Status Date / Time No Known Allergies Allergy Verified 07/27/23 02:56 Home Medications Medication Instructions Recorded Confirmed Type aspirin 81 mg capsule 81 mg PO DAILY 05/29/23 09/17/23 History baclofen 10 mg tablet 15 mg PO QID 05/29/23 09/17/23 History clopidogrel 75 mg tablet 75 mg PO DAILY 05/29/23 09/17/23 History ezetimibe 10 mg tablet 10 mg PO DAILY 05/29/23 09/17/23 History fluoxetine 40 mg capsule 40 mg PO DAILY 05/29/23 09/17/23 History folic acid 1 mg tablet 1 mg PO DAILY 05/29/23 09/17/23 History losartan 50 mg tablet 50 mg PO DAILY 05/29/23 09/17/23 History metoprolol tartrate 50 mg tablet 50 mg PO DAILY 05/29/23 09/17/23 History thiamine HCl (vitamin B1) 100 mg 100 mg PO DAILY 05/29/23 09/17/23 History tablet acetaminophen 500 mg tablet 500 mg PO DIRECTED PRN 07/27/23 09/17/23 History (Tylenol Extra Strength) PAIN/FEVER diphenhydramine HCl 25 mg capsule 25 mg PO Q6H PRN Itching 07/27/23 09/17/23 History (Benadryl) insulin glargine 100 unit/mL (3 10 unit subcut QAM 07/27/23 09/17/23 History mL) subcutaneous pen (Lantus Solostar U-100 Insulin) metformin 500 mg tablet,extended 500 mg PO BID 07/27/23 09/17/23 History release 24 hr oxycodone 5 mg tablet 2.5 mg PO Q6H PRN Pain 07/27/23 09/17/23 History pantoprazole 40 mg tablet,delayed 40 mg PO BID #60 tabs 07/31/23 09/17/23 Rx release (Protonix) polyethylene glycol 3350 17 gram 17 g PO DAILY PRN constipation #30 07/31/23 09/17/23 Rx oral powder packet (Miralax) ea Patient History Medical History DMII (diabetes mellitus, type 2) Anxiety History of tobacco use Focal dystonia Benign meningioma of brain Left hemiplegia Left spastic hemiparesis Adhesive capsulitis of left shoulder 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 Fatty liver Obesity Arteriosclerosis of coronary artery CAD (coronary artery disease) Cerebral atherosclerosis HTN (hypertension) Carotid stenosis, symptomatic, with infarction Hyperlipidemia Surgical History S/P tonsillectomy and adenoidectomy S/P carotid endarterectomy Family History Mother Diabetes Social History Smoking Status: Never smoker Hx Alcohol Use: No Hx Substance Use: No Preferred Language: Hungarian Communication Ability: Effective 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 Beliefs That Will Affect Care: None marital status: Current Living Situation: Spouse Current Living Situation Comment: Lives at home with current occupational status: disabled Other Information That Helps Us Care for You: No Feels Safe at Home: Yes Safety Concerns: Feels Safe At This Time Assistive Devices: Brace/Splint/Immobilizer, Cane and Wheelchair Assistive Devices Comment: Left leg brace Results & Data Vital Signs (Past 12 Hours) Vital Signs Temp Pulse Pulse Resp BP BP Pulse Ox 09/19/23 08:32 36.5 C 83 18 109/63 95 09/19/23 08:26 70 09/19/23 08:26 09/19/23 08:14 36.6 C 74 17 118/61 97 09/19/23 07:52 36.6 C 83 18 120/71 98 09/19/23 02:04 36.8 C 97 H 20 129/71 94 09/19/23 00:00 95 H 09/18/23 22:58 37.1 C 92 H 22 126/61 94 O2 Del Method 09/19/23 08:32 09/19/23 08:26 09/19/23 08:26 Room Air 09/19/23 08:14 09/19/23 07:52 Room Air 09/19/23 02:04 Room Air 09/19/23 00:00 09/18/23 22:58 Room Air Laboratory Results reviewed Diagnostic Findings reviewed (1) Acute renal failure Acute renal failure type: unspecified Qualified Code(s): N17.9 - Acute kidney failure, unspecified (3) Pancreatic cancer Pancreatic malignancy location: unspecified Qualified Code(s): C25.9 - Malignant neoplasm of pancreas, unspecified
--- NOTE | 2023-09-19 10:58 | Communication Note ---
Date of Service: September 19, 2023 Patient's H/H today is noted to be 6.6/20.8. Patient's not interested in an EGD and there is no overt GI bleeding at present. He continues IV Protonix. GI will follow peripherally, but please contact our service with clinical changes/if patient and family change their mind regarding GI evaluation.
--- NOTE | 2023-09-19 11:03 | Hospitalist Progress Note ---
Date of Service September 19, 2023 Assessment & Plan (1) Acute renal failure: (2) Other ureteric obstruction: (3) Ureterolithiasis: Plan: 58-year-old man with history of CVA with left hemiplegia, diabetes mellitus type 2, pancreatic cancer metastasized to the liver, CAD, hypertension, Recent hospitalization from 07/28/2023 to 07/31/2023 for acute cholecystitis and required 2 PRBC during the admission, status post EUS guided GB drainage and Axios stent placement on 08/11/2023, Who presented today ER with hematuria that started yesterday CT abdomen pelvis noted moderate right-sided hydroureteronephrosis due to 2 obstructing proximal right ureteric calculi measuring up to 10 mm, mild left- sided hydroureteronephrosis secondary to an obstructing 9 mm calculus in the proximal left ureter, bilateral nephrolithiasis with urinary bladder calculi. Other findings include similar size of pancreatic head mass with periportal lymphadenopathy, contracted gallbladder with wall thickening and Kedar cholecystic edema, CBD stent in place. Nonspecific wall thickening of the rectosigmoid and ascending colon with adjacent inflammatory stranding. On admission, Labs notable for WBC of 2.35, hemoglobin of 7.2, creatinine of 3.2 [from 0.93 on 07/31/23], total bilirubin of 1.3, direct bilirubin of 0.4, AST of 59, ALT of 55, alkaline phosphatase of 156, procalcitonin of 7.62 Acute renal function due to obstructing ureteric stones. Considering this is bilateral, Urology was consulted in ER Patient had cystoscopy with bilateral stent insertion 09/17/2023 Cr is 3.20 today Nephro c/s On IVF Patient's altered mental status at this time may be due to multiple reasons. CT head did not show any acute abnormalities Possibilities include metabolic encephalopathy in the setting of acute kidney injury, medication effect such as baclofen in the setting of reduced renal fun ction Sepsis is also a possibility with altered mental status, leukopenia in an immunocompromised patient on chemotherapy. Elevated procalcitonin. Renally dose meds Baclofen had been discontinued since admission Leukopenia, neutropenia Continue zosyn for now Cultures negative so far Monitor CBC w/diff Still npo due to drowsiness (4) Anemia: Plan: Chronic anemia On admission Hb was 7.2 Was 8.8 on 09/15/23 outpatient Acute on chronic anemia Possibly due to hematuria. Hematuria now resolved reported 2 episodes of hematemesis at home Hence Upper GI bleed is possible On 09/18/23, GI evaluated and noted currently declined EGD at the time and wished to continue PPI therapy. Got 1 PRBC yesterday Hb still 6.6 today. Getting a 2nd PRBC now agreeable for EGD. GI planning EGD tomorrow Monitor Hb (5) Pancreatic cancer: (6) Elevated LFTs: (7) Transaminitis: Plan: AST, ALT, alk phos though elevated, and mildly improved compared to outpatient LFT on 09/15/2023. Likely related to metastatic pancreatic cancer on chemo. Will monitor. Tbil is elevated at 1.7 (8) HTN (hypertension): Plan: Blood pressure currently borderline to normal Continue to hold home losartan Monitor blood pressure (9) DMII (diabetes mellitus, type 2): Plan: Per , patient was on Lantus 10 units daily and metformin 500 mg twice daily. Hold home metformin. Continue Accu-Cheks every 6 hourly for now while npo (10) CAD (coronary artery disease): Plan: History of CAD. Holding home aspirin and Plavix for now in view of acute anemia/recent procedure Will reassess later (11) DVT prophylaxis: Plan: SCD for now Code Status: DNR per Dispo: PCU Updated mother at bedside I spent a total of 50 minutes coordinating, documenting and providing care for this patient excluding time spent in performance of separately billed services Admission and Anticipated Discharge Date Admission Date: September 17, 2023 Subjective Patient seen and examined. Patient was drowsy but arousable. Was able to tell me his name, that he was in the hospital and that he has low abdominal pain before falling back asleep Other review of system was limited due to drowsiness Physical Exam Constitutional: no acute distress Drowsy Eyes: PERRL, conjunctivae normal, anicteric sclerae ENMT: external ear and nose normal, oropharynx normal Respiratory: normal respiratory effort, lungs clear to auscultation Cardiovascular: Rate/Rhythm: regular rate and regular rhythm Gastrointestinal (Abdomen): normal bowel sounds, soft, nontender, no hepatosplenomegaly Musculoskeletal: No pedal edema Neurologic: Drowsy but arousable Oriented to person and place Left hemiplegia (chronic) Genitourinary: Clear yellowish urine in robert Results & Data Results & Data Vital Signs (Past 12 Hours) Vital Signs Temp Pulse Pulse Resp BP BP Pulse Ox 09/19/23 08:32 36.5 C 83 18 109/63 95 09/19/23 08:26 70 09/19/23 08:26 09/19/23 08:14 36.6 C 74 17 118/61 97 09/19/23 07:52 36.6 C 83 18 120/71 98 09/19/23 02:04 36.8 C 97 H 20 129/71 94 09/19/23 00:00 95 H O2 Del Method 09/19/23 08:32 09/19/23 08:26 09/19/23 08:26 Room Air 09/19/23 08:14 09/19/23 07:52 Room Air 09/19/23 02:04 Room Air 09/19/23 00:00 Laboratory Results Abnormal lab results 09/17/23 09/18/23 09/18/23 Range/Units 17:47 17:44 23:49 WBC (4.8-10.8) K/ul RBC (4.70-6.10) M/uL Hgb (14.0-18.0) g/dl Hct (42.0-52.0) % MCHC (32.0-36.0) g/dL RDW Std Deviation (36.4-46.3) fL RDW Coeff of Bess (11.5-14.5) % Plt Count (130-400) K/uL MPV (9.4-12.4) fL Chloride (98-107) mmol/L BUN (6-23) mg/dl Creatinine (0.6-1.4) mg/dl Glucose (70-99(Fasting)) mg/dl POC Glucose 157 H 139 H (70-99) mg/dl Calcium (8.6-10.3) mg/dl Total Bilirubin (0.2-1.0) mg/dl AST (13-39) U/L Alkaline Phosphatase (34-104) U/L Total Protein (6.0-8.3) gm/dl Albumin (3.4-5.0) gm/dl Crossmatch See Detail 09/19/23 09/19/23 09/19/23 Range/Units 05:56 06:15 12:14 WBC 0.83 L* (4.8-10.8) K/ul RBC 2.46 L (4.70-6.10) M/uL Hgb 6.6 L* (14.0-18.0) g/dl Hct 20.8 L* (42.0-52.0) % MCHC 31.7 L (32.0-36.0) g/dL RDW Std Deviation 48.4 H (36.4-46.3) fL RDW Coeff of Bess 15.9 H (11.5-14.5) % Plt Count 113 L (130-400) K/uL MPV 9.3 L (9.4-12.4) fL Chloride 114 H (98-107) mmol/L BUN 35 H (6-23) mg/dl Creatinine 3.00 H (0.6-1.4) mg/dl Glucose 162 H (70-99(Fasting)) mg/dl POC Glucose 161 H 138 H (70-99) mg/dl Calcium 8.0 L (8.6-10.3) mg/dl Total Bilirubin 1.7 H (0.2-1.0) mg/dl AST 76 H (13-39) U/L Alkaline Phosphatase 115 H (34-104) U/L Total Protein 5.2 L (6.0-8.3) gm/dl Albumin 2.5 L (3.4-5.0) gm/dl Crossmatch 09/19/23 Range/Units 13:03 WBC 0.84 L* (4.8-10.8) K/ul RBC 2.81 L (4.70-6.10) M/uL Hgb 7.7 L (14.0-18.0) g/dl Hct 23.3 L (42.0-52.0) % MCHC (32.0-36.0) g/dL RDW Std Deviation (36.4-46.3) fL RDW Coeff of Bess 15.6 H (11.5-14.5) % Plt Count 114 L (130-400) K/uL MPV 8.8 L (9.4-12.4) fL Chloride (98-107) mmol/L BUN (6-23) mg/dl Creatinine (0.6-1.4) mg/dl Glucose (70-99(Fasting)) mg/dl POC Glucose (70-99) mg/dl Calcium (8.6-10.3) mg/dl Total Bilirubin (0.2-1.0) mg/dl AST (13-39) U/L Alkaline Phosphatase (34-104) U/L Total Protein (6.0-8.3) gm/dl Albumin (3.4-5.0) gm/dl Crossmatch (1) Acute renal failure Acute renal failure type: unspecified Qualified Code(s): N17.9 - Acute kidney failure, unspecified (5) Pancreatic cancer Pancreatic malignancy location: unspecified Qualified Code(s): C25.9 - Malignant neoplasm of pancreas, unspecified
[2023-09-19] MEDS: SODIUM CHLOR 0.45% + 20MEQ KCL 20 MEQ/1,000 ML BAG IV SCH (11:42)
--- NOTE | 2023-09-19 12:19 | Urology Progress Note ---
Date of Service September 19, 2023 Assessment & Plan (1) Hydronephrosis due to obstruction of ureter: (2) Acute renal failure: Plan - POD #2 s/p Cystoscopy, Retrograde Pyelogram with Bilateral Stent Insertion with Dr. Ortega - Afebrile and hemodynamically stable - Labs today - hemoglobin 6.6 (receiving PRBC transfusion); creatinine 3.22- 3.0 today; white count 0.83 - Urine and blood cultures preliminary no growth. - Voiding spontaneously, has condom cath in place. Urine is pink tinged. Bladder scans have been acceptable. Continue to monitor. - No plan for further intervention. - Recommend checking bladder scans to ensure he is emptying his bladder. - If found to be in urinary retention, would recommend Nevarez catheter placement. - Continue antibiotics and tailor as culture data becomes available - Continue to trend labs. Transfuse as felt necessary per primary team. - Continue medical management per primary team - Will arrange outpatient follow-up with our service to discuss definitive stone treatment. - Urology will follow peripherally. Please contact our service with any questions, concerns or changes in patient's status. Admission and Anticipated Discharge Date Admission Date: September 17, 2023 Subjective Pt seen at bedside this AM. Asleep on arrival. Pts mother at bedside. Condom cath in place with pink tinged urine in bag. Urine output overnight 900ml. Currently receiving PRBC transfusion. Review of Systems Constitutional: as per Subjective / HPI Genitourinary: + as per Subjective / HPI Physical Exam Constitutional: + ill appearing; no acute distress Respiratory: no respiratory distress and no labored breathing Neurologic: Somnolent Genitourinary: Condom cath in place Results & Data Vital Signs (Past 12 Hours) Vital Signs Temp Pulse Pulse Resp BP BP Pulse Ox 09/19/23 11:33 36.4 C L 74 16 128/67 96 09/19/23 11:30 128/67 09/19/23 11:30 73 17 96 09/19/23 11:15 74 18 96 09/19/23 11:15 121/71 09/19/23 11:00 81 17 97 09/19/23 11:00 132/73 09/19/23 10:45 117/74 09/19/23 10:45 79 15 95 09/19/23 10:30 84 16 93 09/19/23 10:30 97/70 L 09/19/23 10:15 107/59 L 09/19/23 10:15 77 17 96 09/19/23 10:00 129/80 09/19/23 10:00 87 19 98 09/19/23 09:45 78 16 97 09/19/23 09:45 117/68 09/19/23 09:30 116/65 09/19/23 09:30 76 15 96 09/19/23 09:15 111/67 09/19/23 09:15 87 21 96 09/19/23 09:00 81 20 96 09/19/23 09:00 113/64 09/19/23 08:45 79 20 97 09/19/23 08:45 110/58 L 09/19/23 08:32 36.5 C 83 18 109/63 95 09/19/23 08:30 81 16 96 09/19/23 08:30 109/63 09/19/23 08:26 70 09/19/23 08:26 09/19/23 08:15 78 16 97 09/19/23 08:15 118/61 09/19/23 08:14 36.6 C 74 17 118/61 97 09/19/23 08:13 115/68 09/19/23 08:13 72 15 96 09/19/23 08:00 83 17 95 09/19/23 07:52 36.6 C 83 18 120/71 98 09/19/23 07:45 86 20 96 09/19/23 07:30 88 23 94 09/19/23 07:15 84 14 96 09/19/23 07:00 87 17 95 09/19/23 02:04 36.8 C 97 H 20 129/71 94 O2 Del Method 09/19/23 11:33 09/19/23 11:30 09/19/23 11:30 09/19/23 11:15 09/19/23 11:15 09/19/23 11:00 09/19/23 11:00 09/19/23 10:45 09/19/23 10:45 09/19/23 10:30 09/19/23 10:30 09/19/23 10:15 09/19/23 10:15 09/19/23 10:00 09/19/23 10:00 09/19/23 09:45 09/19/23 09:45 09/19/23 09:30 09/19/23 09:30 09/19/23 09:15 09/19/23 09:15 09/19/23 09:00 09/19/23 09:00 09/19/23 08:45 09/19/23 08:45 09/19/23 08:32 09/19/23 08:30 09/19/23 08:30 09/19/23 08:26 09/19/23 08:26 Room Air 09/19/23 08:15 09/19/23 08:15 09/19/23 08:14 09/19/23 08:13 09/19/23 08:13 09/19/23 08:00 09/19/23 07:52 Room Air 09/19/23 07:45 09/19/23 07:30 09/19/23 07:15 09/19/23 07:00 09/19/23 02:04 Room Air PG Care Time/CCT Total # of Minutes Spent Total Time Spent with Patient: Total time spent is greater than 50% in coordination of care (as documented) at patient's floor/unit and/or counseling patient: Coding Level of Care Code 32941 SUB INP/OBS CARE 2/35MIN Diagnoses Hydronephrosis due to obstruction of ureter N13.1 Acute renal failure N17.9 Acute renal failure type: unspecified (2) Acute renal failure Acute renal failure type: unspecified Qualified Code(s): N17.9 - Acute kidney failure, unspecified
[2023-09-19 13:51] LABS: Hematocrit (blood only) 23.3 % (42.0-52.0); Hemoglobin 7.7 g/dl (14.0-18.0); Mean Corpuscular Hemoglobin 27.4 pg (25.0-34.0); Mean Corpuscular Volume 82.9 fL (80.0-100.0); Mean Platelet Volume 8.8 fL (9.4-12.4); Platelet Count 114 K/uL (130-400); RDW Coefficient of Variation 15.6 % (11.5-14.5); RDW Standard Deviation 45.7 fL (36.4-46.3); Red Blood Count 2.81 M/uL (4.70-6.10); White Blood Count 0.84 K/ul (4.8-10.8)
[2023-09-19 15:20] LABS: Ovalocytes 1+; Tear Drop Cells 1+
[2023-09-19 15:21] LABS: Basophils # (auto) 0.02 K/uL (0.00-0.20); Basophils % (auto) 2.4 %; Eosinophils # (auto) 0.08 K/uL (0.00-0.50); Eosinophils % (auto) 9.4 %; Lymphocytes # (auto) 0.22 K/uL (1.20-3.40); Lymphocytes % (auto) 25.9 %; Monocytes # (auto) 0.04 K/uL (0.11-0.59); Monocytes % (auto) 4.7 %; Neutrophils # (auto) 0.49 K/uL (1.40-6.50); Neutrophils % (auto) 57.6 %
[2023-09-19] MEDS: ACETAMINOPHEN 1,000 MG/100 ML VIAL IV PRN (18:20)
[2023-09-19 22:02] LABS: Hematocrit (blood only) 24.3 % (42.0-52.0); Hemoglobin 7.9 g/dl (14.0-18.0)
[2023-09-20 07:02] LABS: Hematocrit (blood only) 24.4 % (42.0-52.0); Hemoglobin 8.1 g/dl (14.0-18.0); Mean Corpuscular Hemoglobin 27.5 pg (25.0-34.0); Mean Corpuscular Hgb Conc 33.2 g/dL (32.0-36.0); Mean Corpuscular Volume 82.7 fL (80.0-100.0); Mean Platelet Volume 9.2 fL (9.4-12.4); Platelet Count 108 K/uL (130-400); RDW Standard Deviation 47.9 fL (36.4-46.3); Red Blood Count 2.95 M/uL (4.70-6.10); White Blood Count 0.41 K/ul (4.8-10.8)
[2023-09-20 07:25] LABS: Neutrophils # (auto) < 0.50 K/uL (1.40-6.50)
[2023-09-20] MEDS: SODIUM CHLORIDE 0.9% 500 ML IV SCH (08:38)
--- NOTE | 2023-09-20 10:15 | Anesthesiology Consultation ---
Date of Service September 20, 2023 Assessment & Plan (1) Encounter for pre-operative examination: Chart Review Chart Review: Acceptable Risk for Surgery and Patient NOT seen in Pre Admission Testing Consults Requested none History Surgery Operation Date: 09/17/23 18:45 Proposed Procedures p Cystoscopy Retrograde; Bilateral Stent Insertion - Carlin Ortega MD Operation Date: 09/20/23 16:30 Proposed Procedures p Esophagogastroduodenoscopy Dr Hernández - Saul Hernández, DO Height/Weight Height: 5 ft 11 in Weight: 98 kg Allergies Allergy/AdvReac Type Severity Reaction Status Date / Time No Known Allergies Allergy Verified 07/27/23 02:56 Medications Home Medications Medication Instructions Recorded Confirmed Last Taken aspirin 81 mg capsule 81 mg PO DAILY 05/29/23 09/17/23 07/26/23 baclofen 10 mg tablet 15 mg PO QID 05/29/23 09/17/23 07/26/23 clopidogrel 75 mg tablet 75 mg PO DAILY 05/29/23 09/17/23 07/26/23 ezetimibe 10 mg tablet 10 mg PO DAILY 05/29/23 09/17/23 07/26/23 fluoxetine 40 mg capsule 40 mg PO DAILY 05/29/23 09/17/23 07/26/23 folic acid 1 mg tablet 1 mg PO DAILY 05/29/23 09/17/23 07/26/23 losartan 50 mg tablet 50 mg PO DAILY 05/29/23 09/17/23 07/26/23 metoprolol tartrate 50 mg tablet 50 mg PO DAILY 05/29/23 09/17/23 07/26/23 thiamine HCl (vitamin B1) 100 mg 100 mg PO DAILY 05/29/23 09/17/23 07/26/23 tablet acetaminophen 500 mg tablet 500 mg PO DIRECTED PRN 07/27/23 09/17/23 Unknown (Tylenol Extra Strength) PAIN/FEVER diphenhydramine HCl 25 mg capsule 25 mg PO Q6H PRN Itching 07/27/23 09/17/23 Unknown (Benadryl) insulin glargine 100 unit/mL (3 10 unit subcut QAM 07/27/23 09/17/23 07/26/23 mL) subcutaneous pen (Lantus Solostar U-100 Insulin) metformin 500 mg tablet,extended 500 mg PO BID 0209/17/23 07/26/23 release 24 hr oxycodone 5 mg tablet 2.5 mg PO Q6H PRN Pain 07/27/23 09/17/23 Unknown pantoprazole 40 mg tablet,delayed 40 mg PO BID #60 tabs 07/31/23 09/17/23 Unknown release (Protonix) polyethylene glycol 3350 17 gram 17 g PO DAILY PRN constipation #30 07/31/23 09/17/23 Unknown oral powder packet (Miralax) ea Active Medications Generic Name Dose Route Start Last Admin Trade Name Freq PRN Reason Stop Dose Admin Fluoxetine HCl 40 mg 09/18/23 09:00 09/20/23 08:37 Fluoxetine Hcl 20 Mg Cap PO 10/18/23 08:59 Not Given DAILY KAMRAN Folic Acid 1 mg 09/18/23 09:00 09/20/23 08:37 Folic Acid 1 Mg Tab PO 10/18/23 08:59 Not Given DAILY KAMRAN Piperacillin Sod/Tazobactam 100 mls @ 25 mls/hr 09/18/23 06:00 09/20/23 10:10 Sod 4.5 gm/ Dextrose IV 09/28/23 05:59 Infused Q8H KAMRAN Infusion Protocol Pantoprazole Sodium 40 mg/ 100 mls @ 20 mls/hr 09/17/23 20:00 09/20/23 05:59 Dextrose IV 10/17/23 19:59 8 mg/hr Q5H KAMRAN 20 mls/hr Administration 8 MG/HR Potassium Chloride/Sodium Chloride 20 meq in 1,000 mls @ 100 mls/hr 09/19/23 11:00 09/20/23 06:00 1/2 Nss + 20meq Kcl 1000ml IV 10/19/23 10:59 100 mls/hr .Q10H KAMRAN Administration Acetaminophen 1,000 mg in 100 mls @ 400 mls/hr 09/19/23 13:08 09/20/23 02:34 Ofirmev IV 09/22/23 13:07 Infused Q8H PRN Infusion fever or pain Sodium Chloride 500 mls @ 15 mls/hr 09/20/23 07:45 09/20/23 08:38 Nss IV 10/20/23 07:44 15 mls/hr .Q24H KAMRAN Administration Insulin Aspart 0 units 09/18/23 00:00 09/20/23 05:58 Insulin Aspart Per Unit Charge SC 10/18/23 00:00 Not Given Q6 KAMRAN Metoprolol Tartrate 50 mg 09/18/23 09:00 09/20/23 08:37 Metoprolol Tartrate 50 Mg Tab PO 10/18/23 08:59 Not Given DAILY KAMRAN Thiamine HCl 100 mg 09/18/23 09:00 09/20/23 08:37 Thiamine Hcl 100 Mg Tab PO 10/18/23 08:59 Not Given DAILY KAMRAN NPO Date Last Intake of Fluids: 09/17/23 Time Last Intake of Fluids: 11:00 Date Last Intake of Solids: 09/17/23 Time Last Intake of Solids: 11:00 Past Medical History Medical History DMII (diabetes mellitus, type 2) Anxiety History of tobacco use Focal dystonia Benign meningioma of brain Left hemiplegia Left spastic hemiparesis Adhesive capsulitis of left shoulder 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 Fatty liver Obesity Arteriosclerosis of coronary artery CAD (coronary artery disease) Cerebral atherosclerosis HTN (hypertension) Carotid stenosis, symptomatic, with infarction Hyperlipidemia Past Family History Family History Mother Diabetes Past Surgical History Surgical History S/P tonsillectomy and adenoidectomy S/P carotid endarterectomy Social History Smoking Status: Never smoker Hx Alcohol Use: No Alcohol type: beer alcohol intake frequency: 3 or more drinks per day Hx Substance Use: No Physical Exam Vital Signs Last Vital Signs Temp 98.4 F 09/20/23 08:29 Pulse 100 H 09/20/23 08:29 Resp 19 09/20/23 08:29 BP 149/91 H 09/20/23 08:29 Pulse Ox 94 09/20/23 08:29 O2 Del Method Room Air 09/20/23 08:29 O2 Flow Rate 4 09/17/23 20:15 Testing Laboratory Results 09/20/23 06:05 PT 11.4 Seconds (9.0-12.0) 09/17/23 15:12 INR 1.0 (0.9-1.1) 09/17/23 15:12 Urine Color [place] 09/17/23 17:00 Urine Appearance Cloudy (Clear) A 09/17/23 17:00 Urine pH 5.5 (4.5-7.5) 09/17/23 17:00 Ur Specific [place] 1.010 (1.000-1.030) 09/17/23 17:00 Urine Protein 2+ (Negative) H 09/17/23 17:00 Urine Glucose (UA) Negative (Negative) 09/17/23 17:00 Urine Ketones Negative (Negative) 09/17/23 17:00 Urine Nitrite Negative (Negative) 09/17/23 17:00 Ur Leukocyte Esterase Trace (Negative) H 09/17/23 17:00 Urine WBC (Auto) 0-5 /hpf (0-5) 09/17/23 17:00 Urine RBC (Auto) >20 /hpf (0-2) H 09/17/23 17:00 U Hyaline Cast (Auto) 0-2 /lpf (0-2) 09/17/23 17:00 U Epithel Cells (Auto) 0-2 /hpf (0-2) 09/17/23 17:00 Urine Bacteria (Auto) None Seen (None Seen) 09/17/23 17:00 Blood Type B Positive 09/17/23 17:47 Antibody Screen NEGATIVE 09/17/23 17:47 09/18/23 05:00 Urine Culture - Final Urine,Clean Catch No growth - less than 1,000 colonies/mL. 09/17/23 17:47 Aerobic Blood Culture - Preliminary Blood No growth in Aerobic bottle after 48 hours. Anaerobic Blood Culture - Preliminary No growth in Anaerobic bottle after 48 hours. 09/17/23 17:47 Aerobic Blood Culture - Preliminary Blood No growth in Aerobic bottle after 48 hours. Anaerobic Blood Culture - Preliminary No growth in Anaerobic bottle after 48 hours. 09/20/23 09/20/23 05:57 00:10 POC Glucose 128 H 137 H Electrocardiogram Date: 09/18/23 Findings: + NSR @ (935)
--- NOTE | 2023-09-20 11:31 | Communication Note ---
Date of Service: September 20, 2023 Patient is a 58 yo male with metastatic pancreatic cancer. He is noted to be neutropenic today. Mental status improved. He is not having any overt GI bleed ing and H/H is 8.1/24.4. He has had loose stools and studies are pending to rule out infection. Given his overall clinical picture, GI service has discussed with patient and that benefits do not appear to outweigh risks of EGD at this point. Patient & understanding and in agreement. EGD cancelled and diet can be advanced.
[2023-09-20 11:47] LABS: Adenovirus F 40/41 PCR Not Detected (NotDetected); Astrovirus PCR Not Detected (NotDetected); Campylobacter PCR Not Detected (NotDetected); Cryptosporidium PCR Not Detected (NotDetected); Cyclospora cayetanensis PCR Not Detected (NotDetected); Entamoeba histolytica PCR Not Detected (NotDetected); Enteroaggregative E.coli(EAEC) Not Detected (NotDetected); Enteropathogenic E.coli (EPEC) Not Detected (NotDetected); Enterotoxigenic E.coli (ETEC) Not Detected (NotDetected); Giardia lamblia PCR Not Detected (NotDetected); Norovirus GI/GII PCR Not Detected (NotDetected); Plesiomonas shigelloides PCR Not Detected (NotDetected); Rotavirus A PCR Not Detected (NotDetected); Salmonella PCR Not Detected (NotDetected); Sapovirus PCR Not Detected (NotDetected); Shiga-like Toxin E.coli (STEC) Not Detected (NotDetected); Shigella/Enteroinvasive E.coli Not Detected (NotDetected); Vibrio cholerae PCR Not Detected (NotDetected); Vibrio species PCR Not Detected (NotDetected); Yersinia enterocolitica PCR Not Detected (NotDetected)
[2023-09-20 12:11] LABS: Albumin Level 2.6 gm/dl (3.4-5.0); Calcium 8.2 mg/dl (8.6-10.3); Potassium 4.4 mmol/L (3.5-5.1)
[2023-09-20 12:17] LABS: Albumin Globulin Ratio 0.9 (0.9-2); BUN Creatinine Ratio 11.9 (10-20); Creatinine Clr Calc Pharmacy 37.4 ml/min; Est GFR (African American) 30.4 ml/min; Est GFR (Non-African American) 26.2 ml/min; Globulin 2.9 gm/dl (2.5-4.0); Total Protein 5.5 gm/dl (6.0-8.3)
[2023-09-20] MEDS ORDERED: Nursing to Pharmacy Communication SCH (13:15)
--- NOTE | 2023-09-20 13:19 | Urology Progress Note ---
Date of Service September 20, 2023 Assessment & Plan (1) Hydronephrosis due to obstruction of ureter: (2) Acute renal failure: Plan - POD #3 s/p Cystoscopy, Retrograde Pyelogram with Bilateral Stent Insertion with Dr. Ortega - Afebrile, Labs today - hemoglobin 8.1; creatinine downtrending 3.22- 3.0- 2.6 today; white count 0.41 - Urine culture negative; Blood cultures preliminary no growth x 48 hours. - Voiding spontaneously, has condom cath in place. Urine is clear yellow. Co ntinue to monitor. Bladder scan PRN. - No plan for further intervention. - Continue antibiotics and tailor as culture data becomes available - Continue to trend labs. Transfuse as felt necessary per primary team. - Continue medical management per primary team - Will arrange outpatient follow-up with our service to discuss definitive stone treatment. - Urology will follow peripherally. Please contact our service with any questions, concerns or changes in patient's status. Admission and Anticipated Discharge Date Admission Date: September 17, 2023 Subjective Pt seen at bedside this AM. Patient notably more awake today than yesterday. No acute distress. /mother at bedside. Condom cath draining clear yellow urine. Review of Systems Constitutional: as per Subjective / HPI Genitourinary: + as per Subjective / HPI Physical Exam Constitutional: + ill appearing; no acute distress Respiratory: no respiratory distress and no labored breathing Neurologic: awake Psychiatric: Orientation: alert Genitourinary: External catheter draining clear yellow urine Results & Data Vital Signs (Past 12 Hours) Vital Signs Temp Pulse Pulse Resp BP Pulse Ox O2 Del Method 09/20/23 10:45 37.0 C 93 H 18 160/94 H 94 Room Air 09/20/23 08:29 36.9 C 100 H 19 149/91 H 94 Room Air 09/20/23 07:30 95 H 09/20/23 07:30 Room Air 09/20/23 03:41 36.8 C 96 H 20 131/76 94 Room Air PG Care Time/CCT Total # of Minutes Spent Total Time Spent with Patient: Total time spent is greater than 50% in coordination of care (as documented) at patient's floor/unit and/or counseling patient: Coding Level of Care Code 35202 SUB INP/OBS CARE 2/35MIN Diagnoses Hydronephrosis due to obstruction of ureter N13.1 Acute renal failure N17.9 Acute renal failure type: unspecified (2) Acute renal failure Acute renal failure type: unspecified Qualified Code(s): N17.9 - Acute kidney failure, unspecified
[2023-09-20] MEDS: NYSTATIN SUSP 500,000 U/5 ML UDC PO SCH (15:53)
--- NOTE | 2023-09-20 16:04 | Hospitalist Progress Note ---
Date of Service September 20, 2023 Assessment & Plan (1) Acute renal failure: (2) Other ureteric obstruction: (3) Ureterolithiasis: Plan: 58-year-old man with history of CVA with left hemiplegia, diabetes mellitus type 2, pancreatic cancer metastasized to the liver, CAD, hypertension, Recent hospitalization from 07/28/2023 to 07/31/2023 for acute cholecystitis and required 2 PRBC during the admission, status post EUS guided GB drainage and Axios stent placement on 08/11/2023, Who presented today ER with hematuria that started yesterday Acute kidney injury Obstructive uropathy Could have ATN Pancolitis --CT ABD:Moderate right-sided hydroureteronephrosis secondary to two obstructing proximal right ureteral calculi measuring up to 10 mm.. Mild left-sided hydroureteronephrosis secondary to an obstructing 9 mm calculus within the proximal left ureter. Bilateral nephrolithiasis with urinary bladder calculi. Similar size of the pancreatic head mass with periportal lymphadenopathy. Contracted gallbladder with wall thickening and pericholecystic edema again noted. Common bile duct stent is in place. Nonspecific wall thickening of the rectosigmoid and ascending colon with adjacent inflammatory stranding. Correlate clinically to exclude a nonspecific proctocolitis. --S/P Cystoscopy, Retrograde Pyleogram with Bilateral Stent Insertion by Dr. Ortega on 09/17/2023 --Blood cultures negative to date --Urine culture negative --Stool studies negative for infection Continue IV Zosyn for now IV fluids per nephrology Appreciate nephrology, urology input Monitor volume status, renal function Cr:2.6 today Acute metabolic encephalopathy Likely multifactorial: Renal failure, baclofen --CT head:No acute intracranial abnormality.Chronic right MCA infarct. Avoid sedative medications as able Renally dose meds Baclofen on hold Leukopenia, neutropenia Continue Zosyn for now No other obvious source of infection Mental status slowly improving Monitor CBC Oral thrush Started on nystatin (4) Anemia: Plan: Acute on chronic anemia Positive fecal occult Possibly hematuria contributed as well reported 2 episodes of hematemesis at home Possible Upper GI bleed On 09/18/23, GI evaluated and noted currently declined EGD at the time and wished to continue PPI therapy. S/P PRBC Hb 8.1 today Appreciate GI input Given risks versus benefits, EGD currently deferred Will likely benefit from EGD as outpatient Monitor CBC (5) Pancreatic cancer: Plan: Follow-up as outpatient (6) Elevated LFTs: (7) Transaminitis: Plan: Likely related to metastatic pancreatic cancer on chemo. Monitor LFTs Avoid nephrotoxic agents as able Check ammonia level (8) HTN (hypertension): Plan: Blood pressure improved Continue to hold home losartan Monitor blood pressure (9) DMII (diabetes mellitus, type 2): Plan: Per , patient was on Lantus 10 units daily and metformin 500 mg twice daily. Hold home metformin. Continue insulin while hospitalized Monitor blood glucose levels (10) CAD (coronary artery disease): Plan: History of CAD. Resume aspirin, Plavix as able Continue metoprolol (11) DVT prophylaxis: Plan: SCD for now Code Status: DNI/DNR Admission and Anticipated Discharge Date Admission Date: September 17, 2023 Subjective Patient is seen and examined at bedside Mental status much improved per family at bedside Was having diarrhea today Also reports mild abdominal discomfort Denies any chest pain, dyspnea No other complaints Review of Systems Review of Systems: All systems reviewed & are unremarkable except as noted in Subjective Physical Exam Physical Exam: Physical Exam: Vitals signs as noted above General Appearance:Moderately built and nourished, no apparent distress Head: normocephalic, Atraumatic Eyes: normal inspection, EOMI Neck: supple, Trachea midline Respiratory/Chest: Normal breath sounds, CTA, No accessory muscle use Cardiovascular: S1, S2, No murmur Abdomen/GI:Soft, Non tender, Bowel sounds present Extremities/Musculoskeletal:normal inspection, no edema Neurologic/Psych:AAO, chronic left hemiplegia Skin: normal color, warm Results & Data Results & Data Vital Signs (Past 12 Hours) Vital Signs Temp Pulse Pulse Resp BP Pulse Ox O2 Del Method 09/20/23 15:07 37.0 C 97 H 18 160/96 H 95 Room Air 09/20/23 10:45 37.0 C 93 H 18 160/94 H 94 Room Air 09/20/23 08:29 36.9 C 100 H 19 149/91 H 94 Room Air 09/20/23 07:30 95 H 09/20/23 07:30 Room Air Laboratory Results Short CBC 09/19/23 09/20/23 Range/Units 21:24 06:05 WBC 0.41 L* (4.8-10.8) K/ul Hgb 7.9 L 8.1 L (14.0-18.0) g/dl Hct 24.3 L 24.4 L (42.0-52.0) % Plt Count 108 L (130-400) K/uL BMP 09/20/23 06:05 Sodium 143 Potassium 4.4 Chloride 114 H Carbon Dioxide 19 L BUN 31 H Creatinine 2.60 H D Glucose 155 H Calcium 8.2 L Liver Function 09/20/23 Range/Units 06:05 Total Bilirubin 2.0 H (0.2-1.0) mg/dl AST 93 H (13-39) U/L ALT 60 H (7-52) U/L Alkaline Phosphatase 130 H (34-104) U/L Albumin 2.6 L (3.4-5.0) gm/dl (1) Acute renal failure Acute renal failure type: unspecified Qualified Code(s): N17.9 - Acute kidney failure, unspecified (5) Pancreatic cancer Pancreatic malignancy location: unspecified Qualified Code(s): C25.9 - Malignant neoplasm of pancreas, unspecified
[2023-09-20] MEDS: ADVANCED PROBIOTIC 625 MG CAPSULE PO SCH (17:09)
[2023-09-20] MEDS: INSULIN ASPART PER UNIT CHARGE SC SCH (17:09)
[2023-09-20] MEDS: ONDANSETRON INJ 2 MG/ML 2 ML VIAL IV PRN (22:07)
[2023-09-21] MEDS: LOPERAMIDE HCL 2 MG CAP PO PRN (05:20)
[2023-09-21 06:00] LABS: Albumin Globulin Ratio 0.9 (0.9-2); Albumin Level 2.8 gm/dl (3.4-5.0); BUN Creatinine Ratio 12.6 (10-20); Bilirubin,Total 1.8 mg/dl (0.2-1.0); Calcium 8.4 mg/dl (8.6-10.3); Est GFR (African American) 40.2 ml/min; Est GFR (Non-African American) 34.7 ml/min; Globulin 3.2 gm/dl (2.5-4.0); Magnesium 1.2 mg/dl (1.7-2.4); Potassium 4.4 mmol/L (3.5-5.1)
[2023-09-21 07:15] LABS: Hemoglobin 8.2 g/dl (14.0-18.0); Mean Corpuscular Hgb Conc 32.8 g/dL (32.0-36.0); Mean Corpuscular Volume 82.2 fL (80.0-100.0); Platelet Count 79 K/uL (130-400); RDW Coefficient of Variation 16.2 % (11.5-14.5); Red Blood Count 3.04 M/uL (4.70-6.10); White Blood Count 0.35 K/ul (4.8-10.8)
[2023-09-21 07:17] LABS: Neutrophils # (auto) < 0.50 K/uL (1.40-6.50)
[2023-09-21] MEDS ORDERED: LABETALOL HCL IV 5 MG/ML 20ML IV PRN (09:44)
[2023-09-21] MEDS: MAGNESIUM SULFATE / D5W 1 GM/100 ML BAG IV SCH (11:29)
--- NOTE | 2023-09-21 17:41 | Hospitalist Progress Note ---
Date of Service September 21, 2023 Assessment & Plan (1) Acute renal failure: (2) Other ureteric obstruction: (3) Ureterolithiasis: Plan: 58-year-old man with history of CVA with left hemiplegia, diabetes mellitus type 2, pancreatic cancer metastasized to the liver, CAD, hypertension, Recent hospitalization from 07/28/2023 to 07/31/2023 for acute cholecystitis and required 2 PRBC during the admission, status post EUS guided GB drainage and Axios stent placement on 08/11/2023, Who presented today ER with hematuria that started yesterday Acute kidney injury Obstructive uropathy Could have ATN Pancolitis --CT ABD:Moderate right-sided hydroureteronephrosis secondary to two obstructing proximal right ureteral calculi measuring up to 10 mm.. Mild left-sided hydroureteronephrosis secondary to an obstructing 9 mm calculus within the proximal left ureter. Bilateral nephrolithiasis with urinary bladder calculi. Similar size of the pancreatic head mass with periportal lymphadenopathy. Contracted gallbladder with wall thickening and pericholecystic edema again noted. Common bile duct stent is in place. Nonspecific wall thickening of the rectosigmoid and ascending colon with adjacent inflammatory stranding. Correlate clinically to exclude a nonspecific proctocolitis. --S/P Cystoscopy, Retrograde Pyelogram with Bilateral Stent Insertion by Dr. Ortega on 09/17/2023 --Blood cultures negative to date --Urine culture negative --Stool studies negative for infection Continue IV Zosyn for now Appreciate nephrology, urology input Monitor volume status, renal function Cr:2.0 today Renal function slowly improving Continue IV fluids per nephrology Acute metabolic encephalopathy Likely multifactorial: Renal failure, baclofen --CT head:No acute intracranial abnormality.Chronic right MCA infarct. Avoid sedative medications as able Renally dose meds Baclofen on hold Continue Zosyn for now No other obvious source of infection Mental status seem to be back to baseline Pancytopenia Neutropenia Likely due to chemotherapy Discussed with oncology Dr. Acharya on 09/21/2023: Recommends to start Neupogen Monitor CBC closely Needs follow-up with oncology on discharge Oral thrush Continue nystatin Hypomagnesemia Replete electrolytes as needed Monitor (4) Anemia: Plan: Acute on chronic anemia Positive fecal occult Possibly hematuria contributed as well reported 2 episodes of hematemesis at home Possible Upper GI bleed On 09/18/23, GI evaluated and noted currently declined EGD at the time and wished to continue PPI therapy. S/P 2 PRBC Hb 8.2 today Appreciate GI input Given risks versus benefits, EGD currently deferred Will likely benefit from EGD as outpatient Monitor CBC (5) Pancreatic cancer: Plan: Follow-up as outpatient Palliative care consulted to address goals of care (6) Elevated LFTs: (7) Transaminitis: Plan: Likely related to metastatic pancreatic cancer on chemo. Monitor LFTs Avoid nephrotoxic agents as able Check ammonia level (8) HTN (hypertension): Plan: Blood pressure improved Continue to hold home losartan Monitor blood pressure (9) DMII (diabetes mellitus, type 2): Plan: Per , patient was on Lantus 10 units daily and metformin 500 mg twice daily. Hold home metformin. Continue insulin while hospitalized Monitor blood glucose levels (10) CAD (coronary artery disease): Plan: History of CAD. Resume aspirin, Plavix as able Continue metoprolol (11) DVT prophylaxis: Plan: SCD for now Code Status: DNI/DNR Admission and Anticipated Discharge Date Admission Date: September 17, 2023 Subjective Patient is seen and examined at bedside Diarrhea slowly improving Mental status seem to be back to baseline Has intermittent minimal hematuria Discussed with oncology today Also updated patient's family at bedside Patient denies any chest pain, dyspnea, nausea, vomiting, abdominal pain Review of Systems Review of Systems: All systems reviewed & are unremarkable except as noted in Subjective Physical Exam Physical Exam: Physical Exam: Vitals signs as noted above General Appearance:Moderately built and nourished, no apparent distress Head: normocephalic, Atraumatic Eyes: normal inspection, EOMI Neck: supple, Trachea midline Respiratory/Chest: Normal breath sounds, CTA, No accessory muscle use Cardiovascular: S1, S2, No murmur Abdomen/GI:Soft, Non tender, Bowel sounds present Extremities/Musculoskeletal:normal inspection, no edema Neurologic/Psych:AAO, chronic left hemiplegia Skin: normal color, warm Results & Data Results & Data Vital Signs (Past 12 Hours) Vital Signs Temp Pulse Pulse Resp BP Pulse Ox O2 Del Method 09/21/23 16:00 36.8 C 76 18 125/75 96 Room Air 09/21/23 11:18 37.0 C 85 17 139/84 93 Room Air 09/21/23 07:52 37.1 C 110 H 15 160/97 H 95 Room Air 09/21/23 07:51 36.3 C L 100 H 20 175/110 H 94 Room Air Laboratory Results Short CBC 09/21/23 Range/Units 05:21 WBC 0.35 L* (4.8-10.8) K/ul Hgb 8.2 L (14.0-18.0) g/dl Hct 25.0 L (42.0-52.0) % Plt Count 79 L (130-400) K/uL BMP 09/21/23 05:21 Sodium 138 Potassium 4.4 Chloride 110 H Carbon Dioxide 20 L BUN 26 H Creatinine 2.06 H D Glucose 165 H Calcium 8.4 L Liver Function 09/21/23 Range/Units 05:21 Total Bilirubin 1.8 H (0.2-1.0) mg/dl AST 106 H (13-39) U/L ALT 71 H (7-52) U/L Alkaline Phosphatase 138 H (34-104) U/L Albumin 2.8 L (3.4-5.0) gm/dl (1) Acute renal failure Acute renal failure type: unspecified Qualified Code(s): N17.9 - Acute kidney failure, unspecified (5) Pancreatic cancer Pancreatic malignancy location: unspecified Qualified Code(s): C25.9 - Malignant neoplasm of pancreas, unspecified
[2023-09-21] MEDS: FILGRASTIM 300 MCG/ML VIAL SQ ONE (18:01)
[2023-09-21] MEDS: METOPROLOL TARTRATE 50 MG TAB PO SCH (20:10)
[2023-09-22 07:50] LABS: Albumin Level 2.5 gm/dl (3.4-5.0); Bilirubin,Total 1.7 mg/dl (0.2-1.0); Calcium 8.3 mg/dl (8.6-10.3); Magnesium 1.5 mg/dl (1.7-2.4); Potassium 4.3 mmol/L (3.5-5.1)
[2023-09-22 07:55] LABS: Hematocrit (blood only) 23.6 % (42.0-52.0); Hemoglobin 7.8 g/dl (14.0-18.0); Mean Corpuscular Hemoglobin 27.3 pg (25.0-34.0); Mean Corpuscular Hgb Conc 33.1 g/dL (32.0-36.0); Mean Corpuscular Volume 82.5 fL (80.0-100.0); Mean Platelet Volume 10.8 fL (9.4-12.4); Platelet Count 40 K/uL (130-400); RDW Coefficient of Variation 15.9 % (11.5-14.5); RDW Standard Deviation 47.5 fL (36.4-46.3); Red Blood Count 2.86 M/uL (4.70-6.10); White Blood Count 0.63 K/ul (4.8-10.8)
[2023-09-22 07:56] LABS: Albumin Globulin Ratio 0.9 (0.9-2); BUN Creatinine Ratio 11.5 (10-20); Creatinine Clr Calc Pharmacy 58.5 ml/min; Est GFR (African American) 52.6 ml/min; Est GFR (Non-African American) 45.4 ml/min; Globulin 2.9 gm/dl (2.5-4.0); Total Protein 5.4 gm/dl (6.0-8.3)
[2023-09-22 08:29] LABS: ALC (manual) 0.39 K/uL (1.2-3.4); ANC (manual) 0.12 K/uL (1.4-6.5); Basophils # (manual) 0.03 K/uL (0-0.2); Basophils % (manual) 4 %; Blast # (manual) 0.02 K/uL (0-0); Blast Cells % (manual) 3 %; Eosinophils # (manual) 0.03 K/uL (0-0.50); Eosinophils % (manual) 5 %; Lymphocytes # (manual) 0.39 K/uL (1.2-3.4); Lymphocytes % (manual) 62 %; Metamyelocytes # (manual) 0.01 K/uL (0-0); Metamyelocytes % (manual) 1 %; Monocytes # (manual) 0.03 K/uL (0.11-0.59); Monocytes % (manual) 4 %; Myelocytes # (manual) 0.01 K/uL (0-0); Myelocytes % (manual) 2 %; Neutrophils # (manual) 0.12 K/uL (1.40-6.50); Neutrophils % (manual) 19 %; Tear Drop Cells 1+
[2023-09-22] MEDS: FILGRASTIM 300 MCG/ML VIAL SQ SCH (10:35)
[2023-09-22] MEDS: MAGNESIUM SULFATE / D5W 1 GM/100 ML BAG IV SCH (11:00)
--- NOTE | 2023-09-22 16:53 | Hospitalist Progress Note ---
Date of Service September 22, 2023 Assessment & Plan (1) Acute renal failure: (2) Other ureteric obstruction: (3) Ureterolithiasis: Plan: 58-year-old man with history of CVA with left hemiplegia, diabetes mellitus type 2, pancreatic cancer metastasized to the liver, CAD, hypertension, Recent hospitalization from 07/28/2023 to 07/31/2023 for acute cholecystitis and required 2 PRBC during the admission, status post EUS guided GB drainage and Axios stent placement on 08/11/2023, Who presented today ER with hematuria that started yesterday Acute kidney injury Obstructive uropathy Could have ATN Pancolitis --CT ABD:Moderate right-sided hydroureteronephrosis secondary to two obstructing proximal right ureteral calculi measuring up to 10 mm.. Mild left-sided hydroureteronephrosis secondary to an obstructing 9 mm calculus within the proximal left ureter. Bilateral nephrolithiasis with urinary bladder calculi. Similar size of the pancreatic head mass with periportal lymphadenopathy. Contracted gallbladder with wall thickening and pericholecystic edema again noted. Common bile duct stent is in place. Nonspecific wall thickening of the rectosigmoid and ascending colon with adjacent inflammatory stranding. Correlate clinically to exclude a nonspecific proctocolitis. --S/P Cystoscopy, Retrograde Pyelogram with Bilateral Stent Insertion by Dr. Ortega on 09/17/2023 --Blood cultures negative to date --Urine culture negative --Stool studies negative for infection Continue IV Zosyn for now Appreciate nephrology, urology input Monitor volume status, renal function Cr:1.6 today Continue IV fluids per nephrology Renal function continues to improve Plan to discontinue antibiotics as able Acute metabolic encephalopathy Likely multifactorial: Renal failure, baclofen --CT head:No acute intracranial abnormality.Chronic right MCA infarct. Avoid sedative medications as able Renally dose meds Baclofen on hold Continue Zosyn for now No other obvious source of infection Mental status seem to be back to baseline Pancytopenia Neutropenia Likely due to chemotherapy Discussed with oncology Dr. Acharya on 09/21/2023: Recommends to start Neupogen Monitor CBC closely Needs follow-up with oncology on discharge Continue Neupogen Neutropenia slowly improving Oral thrush Continue nystatin Hypomagnesemia Replete electrolytes as needed Monitor (4) Anemia: Plan: Acute on chronic anemia Thrombocytopenia Positive fecal occult Possibly hematuria contributed as well reported 2 episodes of hematemesis at home Possible Upper GI bleed On 09/18/23, GI evaluated and noted currently declined EGD at the time and wished to continue PPI therapy. S/P 2 PRBC Hb 7.8 today Appreciate GI input Given risks versus benefits, EGD currently deferred Will likely benefit from EGD as outpatient Monitor CBC (5) Pancreatic cancer: Plan: Follow-up as outpatient Palliative care consulted to address goals of care (6) Elevated LFTs: (7) Transaminitis: Plan: Likely related to metastatic pancreatic cancer on chemo. Monitor LFTs Avoid nephrotoxic agents as able Normal ammonia Discussed with GI on 09/22/2023 Will check abdominal ultrasound (8) HTN (hypertension): Plan: Blood pressure improved Continue to hold home losartan Monitor blood pressure (9) DMII (diabetes mellitus, type 2): Plan: Per , patient was on Lantus 10 units daily and metformin 500 mg twice daily. Hold home metformin. Continue insulin while hospitalized Monitor blood glucose levels (10) CAD (coronary artery disease): Plan: History of CAD. Resume aspirin, Plavix as able Continue metoprolol (11) DVT prophylaxis: Plan: SCD for now Code Status: DNI/DNR Admission and Anticipated Discharge Date Admission Date: September 17, 2023 Subjective Patient is seen and examined at bedside Still has some diarrhea Discussed with patient's family at bedside No new complaints Neutropenia slowly improving Patient denies any chest pain, dyspnea, nausea, vomiting, abdominal pain Review of Systems Review of Systems: All systems reviewed & are unremarkable except as noted in Subjective Physical Exam Physical Exam: Physical Exam: Vitals signs as noted above General Appearance:Moderately built and nourished, no apparent distress Head: normocephalic, Atraumatic Eyes: normal inspection, EOMI Neck: supple, Trachea midline Respiratory/Chest: Normal breath sounds, CTA, No accessory muscle use Cardiovascular: S1, S2, No murmur Abdomen/GI:Soft, Non tender, Bowel sounds present Extremities/Musculoskeletal:normal inspection, no edema Neurologic/Psych:AAO, chronic left hemiplegia Skin: normal color, warm Results & Data Results & Data Vital Signs (Past 12 Hours) Vital Signs Temp Pulse Pulse Resp BP Pulse Ox O2 Del Method 09/22/23 15:52 36.9 C 82 22 124/82 97 Room Air 09/22/23 11:25 36.8 C 85 20 120/69 97 Room Air 09/22/23 07:34 37.0 C 79 18 138/80 97 Room Air 09/22/23 07:00 81 Laboratory Results Short CBC 09/22/23 Range/Units 06:45 WBC 0.63 L* (4.8-10.8) K/ul Hgb 7.8 L (14.0-18.0) g/dl Hct 23.6 L (42.0-52.0) % Plt Count 40 L (130-400) K/uL BMP 09/22/23 06:45 Sodium 137 Potassium 4.3 Chloride 109 H Carbon Dioxide 21 BUN 19 Creatinine 1.65 H D Glucose 130 H Calcium 8.3 L Liver Function 09/22/23 Range/Units 06:45 Total Bilirubin 1.7 H (0.2-1.0) mg/dl AST 211 H (13-39) U/L ALT 120 H (7-52) U/L Alkaline Phosphatase 152 H (34-104) U/L Albumin 2.5 L (3.4-5.0) gm/dl (1) Acute renal failure Acute renal failure type: unspecified Qualified Code(s): N17.9 - Acute kidney failure, unspecified (5) Pancreatic cancer Pancreatic malignancy location: unspecified Qualified Code(s): C25.9 - Malignant neoplasm of pancreas, unspecified
[2023-09-22] MEDS: MAGNESIUM CHLORIDE W/CALCIUM 64MG DELAYED REL TAB PO SCH (21:17)
--- NOTE | 2023-09-22 23:28 | Palliative Care Consultation ---
Date of Consultation September 22, 2023 Assessment & Plan (1) Weakness generalized: Likely multifactorial from cancer related toxicities, severe muscle deconditioning, chronic left hemiplegia Currently requires a two-person max assist for any transfers or minimal ambulation i.e. bed to bedside commode. Has been adamant that he does not wish to have home health nursing support and feels that his +/- mother can handle his physical needs. (2) Cancer related pain: (3) Severe muscle deconditioning: (4) Advanced care planning/counseling discussion: A 60-minute, complex [id number] advance care planning discussion was held with the patient, his and his mother at the bedside. With their permission and voluntary participation, we discussed the overall concerns of this current admission as well as the previous. He and his feel that he was "fine before all this happened" I do not understand why there is a need to recommend subacute rehab or visiting nurse services. They did state that after his last stroke, they had private physical therapy in the home. We discussed the options for disposition planning including the following: Discharge to alf for subacute rehab, discharge home with visiting nurse services and home-based PT, discharge home with none of the above services and family will provide the care. may or may not pursue resuming some private in-home PT services. With continued discussion, patient stated that his overall concern is that of finances. He does not wish to have to pay any [id number] or additional cost for services such as rehab, alf care, or visiting nurse services. His echoed these concerns. His mother stated "do not worry about the money, you have to do what you need to do to get better." Patient wanted to know what the input was from his oncologist. I reached out to Dr. Acharya who advised the following which I then updated the patient and family with: Patient has pancreatic cancer with liver mets. He is on gemcitabine and Abraxane chemo since early July 2023. His cancer marker 19 9 level was around 500 earlier and is currently around 138 as of 09/08/2023. Overall, Dr. Acharya feels he is responding with the treatment based on the drop in cancer markers and did note that he reviewed the CT of the abdomen and pelvis done without IV contrast but notes that this may be why he was not able to clearly identify the liver lesions. Overall, Dr. Acharya notes that the patient has a blood metabolic encephalopathy with worsening renal failure and bone marrow suppression most likely due to his chemotherapy. He had asked for and we have started growth colony-stimulating factor. Patient does not have any known metastatic brain disease. Some of his neurologic deficits especially with his speech are more than likely due to his old CVA stroke. Dr. Acharya anticipates that once patient's blood counts improve and his strength improves as well as the encephalopathy fully resolves, he would be able to resume chemotherapy but anticipates that on the whole this will take some time. At this time, Dr. Acharya's formal recommendation is to try to focus on correctable factors. I updated patient and his family with the recommendations from Dr. Acharya. I advised him that on the whole the most likely intervention that would provide him with the most optimal chance to resume chemotherapy with improved conditioning and performance status would be a short-term rehab stay at a [facility]. His mother asked about the option of going to [facility]. His then replied that [facility] would be too far away from home and not easy for them to visit. I advised him that there is not a [facility] in the region however there is [facility] although that is an acute rehab center that patient would not qualify for given his current deconditioned status. Acute rehab candidates need to be able to participate in therapy for upwards of 3 hours a day. Patient is not able to tolerate more than 15 to 20 minutes of physical therapy at a very low intensity while here in the hospital. Patient and again them [facility] going to a rehab facility and after more extended discussion continue to decline the offer for being discharged with visiting nurse services and continue to insist they can manage this on their own at home. Patient's mother lives approximately 6 miles from his home and states that she will try to help as well. I reiterated my concern about his physical needs given his overall weakness and deconditioning, his hemiplegia, and that I did not feel his and his mother could manage all of the physical burdens of his needs on their own. However, and patient continues to insist they can do this. I suggested that physical therapy assess their ability to do so on a follow-up visit when and mother are present. and mother will then have to demonstrate how they will be able to safely assist patient with ambulation, transitions, transfers etc. If family is able to safely demonstrate the skills, then going home as they are insisting may not be unreasonable. We discussed the potential harms of going home without adequate help including the risk of falls and further decline. Mrs. Ocampo states patient has an appointment next week on 09/29/2023 for chemotherapy and asks if he will be able to keep that appointment. I advised her that he is not a candidate for chemotherapy at this time given his active infection status, his metabolic encephalopathy, and severe deconditioning. The decline in his performance status needs to improve and the infection needs to resolve before further chemotherapy can be resumed. I would anticipate that he will need a couple of weeks to get to that point. Home physical therapy may be an option to help improve his physical conditioning if they are willing to consider that. I updated Dr. Acharya who is in agreement with the above recommendation and assessment. Dr. Acharya will make sure that the office reschedules patient for approximately 3 to 4 weeks after his discharge and will likely need some blood work drawn in the interim prior to seeing him in clinic. I advised patient that a VNS is involved in his care, then they would be able to monitor his blood work and facilitate transmitting those results to Dr. Acharya for review prior to an appointment in clinic. His mentions that he was also due for follow-up imaging mid October at [facility]. I advised her to contact Dr. Acharya's office to determine the timing for those imaging studies and if he would want them done a little bit later. They reaffirmed a no CODE STATUS. Patient and continue to insist that they can go home alone, without any additional help, and they can manage his needs safely. They also added that his mother can help take care of him and mother states that she was willing to move into their home to provide 24/7 assistance. She lives approximately 6 miles away from them. He remains insistent on wanting to continue his chemotherapy. We discussed the overall nature of his metastatic cancer. I asked him to tell me his understanding of the goal of chemotherapy and he told me it was hopeful that the chemotherapy would shrink the tumor and provide him with some more time. His states that she is hopeful that will cure his cancer. We discussed that he has a metastatic pancreatic cancer. The likelihood that this would be a curable cancer is not possible. However it is hopeful given that he has had some response though far with decreasing levels of his CA 19-9, that perhaps resuming chemotherapy once stable, could allow him to have more time in a reasonable quality of life with his family. I expressed to them my worry that his continued complications, [id number] admissions, and progressive performance status declines in the face of these complications and rising cancer related toxicities, may portend a poor prognosis and at some point may also indicate cancer progression or further intolerability to chemotherapy. They verbalized understanding. They were appreciative of this discussion and all the recommendations and plans as discussed above. I have updated the primary team, nursing as well as Dr. Acharya from [facility] oncology. (5) Palliative care by specialist: Met with pt/family. Provided overview of Palliative Medicine, a subspecialty that provides specialized medical care for people living with a serious illness by offering a focus on quality of life. Palliative Medicine is often conflated with hospice: I advised patient/family that Palliative and hospice can be partners but we are not the same. It is important to understand the difference so that we may be informed, and not afraid. Palliative Medicine works to improve QOL through reduction of symptom burden/more control over their illness, for both the patient and family. Palliative medicine clinicians are board certified, specially-trained and another member of the patient's medical care team. We often provide an extra layer of support because our care is based on the needs of the patient, not the prognosis; as such, it's appropriate at any age/advancing stage of a serious illness and can be provided along with curative treatment. Palliative Medicine clinicians are also trained in advanced communication methodologies, to facilitate complex discussions about advanced illness planning, which are needed to help assure that the treatment choices match the patient's goals, aka delivering Goal Concordant care. Finally, we discussed that hospice is a visiting nurse service that focuses on care delivered at the very end of life for patients with terminal illness, with life expectancy less than 6 month. Plan ACP discussion as noted above. His goals remain to try to resume chemotherapy once back to his baseline. Although there is some significant muscle deconditioning and a recommendation for subacute rehab, patient refuses this option and is also unwilling to consider home visiting nurses support with home- based PT. He and his remain quite insistent that they are going to be able to manage his physical needs by themselves and predicate this on the fact that "he was fine before he came in here." Palliative medicine was consulted to assist with the goals of care discussion and clarification as noted above in the extensive advance care planning meeting held with patient, his and his mother at the bedside. Additionally, further conversation was held with Dr. Acharya his primary oncologist to further elucidate his prognosis and the overall plan of care for him a cancer treatment perspective moving forward. For now, I will sign off and remain peripherally available for reengagement if needed. Thank you for allowing us to participate in the ongoing care of this patient. Please don't hesitate to call or page with any additional concerns. Dr. Elissa Arnold [facility] Director, Palliative Care History of Present Illness Reason for Consultation: [facility] Attending Physician: Faustino Chowdhury MD History of Present Illness Mr. Ocampo is a 58-year-old gentleman admitted from home with progressive weakness and decline. He notes that his urine output was decreasing and his urine was becoming darker and more concentrated in appearance. He is seen bedside in the ICU together with his and his mother. PMH: CVA with left hemiplegia, diabetes mellitus type 2, pancreatic cancer m etastasized to the liver, CAD, hypertension, Recent hospitalization from 07/28/2023 to 07/31/2023 for acute cholecystitis and required 2 PRBC during the admission, status post EUS guided GB drainage and Axios stent placement on 08/11/2023 He presented 09/17/23 to [facility] ED c/o hematuria since 09/16/23 Last chemo was 09/15/23 He is weak appearing and fatigued. At times he has a hard time answering questions or his speech becomes a little garbled and he will look to his for further elaboration. His prior history of CVA is noted. Currently, he has been dealing with a metastatic pancreatic cancer for which she is followed by Dr. Acharya at [facility]. His last chemotherapy was approximately 1 week ago. He notes that after every chemotherapy He has been dealing with complex nausea, vomiting, some cancer pain and progressive weakness. Admitting notes were reviewed. Chart reviewed in detail. MAR reviewed. Mr. Ocampo was seen by physical therapy during this admission. It is currently taking 2 person max assist to assist him out of bed to the commode at the bedside. He is not able to ambulate independently or with a walker. Nevertheless he declines the offer of subacute rehab and refuses home health nursing. Per nursing staff, he and his remain insistent "they can go home and manage just fine, they do not need any help." There are concerns and worries that patient and are not fully grasping or being able to come to terms with, accepting the severity of his illness. His mother has been concerned about these issues and has been speaking privately with care management to voice her concerns. Allergies Allergy/AdvReac Type Severity Reaction Status Date / Time No Known Allergies Allergy Verified 07/27/23 02:56 Home Medications Medication Instructions Recorded Confirmed Type aspirin 81 mg capsule 81 mg PO DAILY 05/29/23 09/17/23 History baclofen 10 mg tablet 15 mg PO QID 05/29/23 09/17/23 History clopidogrel 75 mg tablet 75 mg PO DAILY 05/29/23 09/17/23 History ezetimibe 10 mg tablet 10 mg PO DAILY 05/29/23 09/17/23 History fluoxetine 40 mg capsule 40 mg PO DAILY 05/29/23 09/17/23 History folic acid 1 mg tablet 1 mg PO DAILY 05/29/23 09/17/23 History losartan 50 mg tablet 50 mg PO DAILY 05/29/23 09/17/23 History metoprolol tartrate 50 mg tablet 50 mg PO DAILY 05/29/23 09/17/23 History thiamine HCl (vitamin B1) 100 mg 100 mg PO DAILY 05/29/23 09/17/23 History tablet acetaminophen 500 mg tablet 500 mg PO DIRECTED PRN 07/27/23 09/17/23 History (Tylenol Extra Strength) PAIN/FEVER diphenhydramine HCl 25 mg capsule 25 mg PO Q6H PRN Itching 07/27/23 09/17/23 History (Benadryl) insulin glargine 100 unit/mL (3 10 unit subcut QAM 07/27/23 09/17/23 History mL) subcutaneous pen (Lantus Solostar U-100 Insulin) metformin 500 mg tablet,extended 500 mg PO BID 07/27/23 09/17/23 History release 24 hr oxycodone 5 mg tablet 2.5 mg PO Q6H PRN Pain 07/27/23 09/17/23 History pantoprazole 40 mg tablet,delayed 40 mg PO BID #60 tabs 07/31/23 09/17/23 Rx release (Protonix) polyethylene glycol 3350 17 gram 17 g PO DAILY PRN constipation #30 07/31/23 09/17/23 Rx oral powder packet (Miralax) ea Patient History Medical History (Updated 09/22/23 @ 23:33 by Elissa Arnold DNP) Palliative care by specialist Advanced care planning/counseling discussion Diarrhea Severe muscle deconditioning Weakness generalized Cancer related pain DMII (diabetes mellitus, type 2) Anxiety History of tobacco use Focal dystonia Benign meningioma of brain Left hemiplegia Left spastic hemiparesis Adhesive capsulitis of left shoulder 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 Fatty liver Obesity Arteriosclerosis of coronary artery CAD (coronary artery disease) Cerebral atherosclerosis HTN (hypertension) Carotid stenosis, symptomatic, with infarction Hyperlipidemia Surgical History S/P tonsillectomy and adenoidectomy S/P carotid endarterectomy Family History Mother Diabetes Social History Smoking Status: Never smoker Hx Alcohol Use: No Hx Substance Use: No Preferred Language: Burkinan Communication Ability: Effective Photographic Reproduction Technician Required: No Beliefs That Will Affect Care: None marital status: Current Living Situation: Spouse Current Living Situation Comment: Lives at home with current occupational status: disabled Other Information That Helps Us Care for You: No Feels Safe at Home: Yes Safety Concerns: Feels Safe At This Time Assistive Devices: Brace/Splint/Immobilizer, Cane and Wheelchair Assistive Devices Comment: Left leg brace Review of Systems Review of Systems: All systems reviewed & are unremarkable except as noted in Subjective Physical Exam Physical Exam: Frail, chronically ill-appearing male appears older than stated age, resting semireclined in bed. Generalized weakness throughout. He is diaphoretic and pale. He has an ashen complexion. He is awake and alert but occasionally has some garbled speech or drifts off. He will often look to his to provide the answer to questions that are asked. He has generalized weakness throughout. He is not able to follow commands for strength testing but does appear to be awake and alert. He is aware he is in the hospital and the issues that brought him here. Abdomen is soft but tender to palpation. Bowel sounds are diminished. He has a Nevarez with dark concentrated urine, it is dark brown in appearance. Results & Data Vital Signs (Past 12 Hours) Vital Signs Temp Pulse Pulse Resp BP Pulse Ox O2 Del Method 09/22/23 23:07 36.9 C 82 24 150/94 H 98 Room Air 09/22/23 20:00 36.9 C 82 18 145/89 H 99 Room Air 09/22/23 15:52 36.9 C 82 22 124/82 97 Room Air Laboratory Results 09/22/23 09/22/23 09/22/23 Range/Units 20:50 16:32 11:26 WBC (4.8-10.8) K/ul RBC (4.70-6.10) M/uL Hgb (14.0-18.0) g/dl Hct (42.0-52.0) % MCV (80.0-100.0) fL MCH (25.0-34.0) pg MCHC (32.0-36.0) g/dL RDW Std Deviation (36.4-46.3) fL RDW Coeff of Bess (11.5-14.5) % Plt Count (130-400) K/uL MPV (9.4-12.4) fL Immature Gran % (Auto) % Neut % (Auto) % Lymph % (Auto) % Mcminn % (Auto) % Eos % (Auto) % Baso % (Auto) % Neut # (Auto) (1.40-6.50) K/uL Lymph # (Auto) (1.20-3.40) K/uL Mcminn # (Auto) (0.11-0.59) K/uL Eos # (Auto) (0.00-0.50) K/uL Baso # (Auto) (0.00-0.20) K/uL Immature Gran # (Auto) (0.01-0.20) K/uL Neutrophils % (Manual) % Lymphocytes % (Manual) % Monocytes % (Manual) % Eosinophils % (Manual) % Basophils % (Manual) % Metamyelocytes % (Man) % Myelocytes % (Man) % Blast Cells % (Manual) % Neutrophils # (Manual) (1.40-6.50) K/uL Total Absolute Neuts (1.4-6.5) K/uL Lymphocytes # (Manual) (1.2-3.4) K/uL Total Abs Lymphocytes (1.2-3.4) K/uL Monocytes # (Manual) (0.11-0.59) K/uL Eosinophils # (Manual) (0-0.50) K/uL Basophils # (Manual) (0-0.2) K/uL Metamyelocytes # (Man) (0-0) K/uL Myelocytes # (Manual) (0-0) K/uL Blast Cells # (Man) (0-0) K/uL Hyposegmented Neuts Blood Smear Review Tear Drop Cells Ovalocytes PT (9.0-12.0) Seconds INR (0.9-1.1) Sodium (136-145) mmol/L Potassium (3.5-5.1) mmol/L Chloride (98-107) mmol/L Carbon Dioxide (21-32) mmol/L Anion Gap (3-11) BUN (6-23) mg/dl Creatinine (0.6-1.4) mg/dl Est Cr Clr Drug Dosing ml/min Est GFR ( Amer) ml/min Est GFR (Non-Af Amer) ml/min BUN/Creatinine Ratio (10-20) Glucose (70-99(Fasting)) mg/dl POC Glucose 156 H 175 H 171 H (70-99) mg/dl Lactate (0.4-2.0) mmol/L Calcium (8.6-10.3) mg/dl Magnesium (1.7-2.4) mg/dl Total Bilirubin (0.2-1.0) mg/dl Direct Bilirubin (0-0.2) mg/dl AST (13-39) U/L ALT (7-52) U/L Alkaline Phosphatase (34-104) U/L Ammonia (18-72) umol/L Total Protein (6.0-8.3) gm/dl Albumin (3.4-5.0) gm/dl Globulin (2.5-4.0) gm/dl Albumin/Globulin Ratio (0.9-2) Lipase (11-82) U/L Procalcitonin (0-0.5) ng/ml Urine Color Urine Appearance (Clear) Urine pH (4.5-7.5) Ur Specific [place] (1.000-1.030) Urine Protein (Negative) Urine Glucose (UA) (Negative) Urine Ketones (Negative) Urine Blood (Negative) Urine Nitrite (Negative) Urine Bilirubin (Negative) Urine Urobilinogen (Negative) Ur Leukocyte Esterase (Negative) Urine WBC (Auto) (0-5) /hpf Urine RBC (Auto) (0-2) /hpf U Hyaline Cast (Auto) (0-2) /lpf U Epithel Cells (Auto) (0-2) /hpf Urine Bacteria (Auto) (None Seen) Stool Occult Bld Scrn (Negative) Stl C. cayetanensis PCR (NotDetected) Stool Rotavirus A PCR (NotDetected) Stl Adenov F 40/41 PCR (NotDetected) Stool Astrovirus (PCR) (NotDetected) Stool Campylobacter PCR (NotDetected) Stl C. diff Tox B Gene (Neg) Stool Cryptosporidium PCR (NotDetected) Stl E.coli Shiga Tox PCR (NotDetected) Stl Enterotoxigenic E PCR (NotDetected) Stool EPEC (PCR) (NotDetected) Stool EAEC (PCR) (NotDetected) Stl E. histolytica PCR (NotDetected) Stool Giardia Lamblia PCR (NotDetected) Stool Salmonella PCR (NotDetected) Stool Sapovirus (PCR) (NotDetected) Stl P. shigelloides PCR (NotDetected) Stl Shigella/EIEC PCR (NotDetected) St Y.enterocolitica PCR (NotDetected) Stool Vibrio (PCR) (NotDetected) Stl Vibrio cholerae PCR (NotDetected) Stl Norovirus GI/GII PCR (NotDetected) Ethyl Alcohol mg/dL (<10.0) mg/dl Blood Type Antibody Screen Crossmatch 09/22/23 09/22/23 09/21/23 Range/Units 07:36 06:45 19:50 WBC 0.63 L* (4.8-10.8) K/ul RBC 2.86 L (4.70-6.10) M/uL Hgb 7.8 L (14.0-18.0) g/dl Hct 23.6 L (42.0-52.0) % MCV 82.5 (80.0-100.0) fL MCH 27.3 (25.0-34.0) pg MCHC 33.1 (32.0-36.0) g/dL RDW Std Deviation 47.5 H (36.4-46.3) fL RDW Coeff of Bess 15.9 H (11.5-14.5) % Plt Count 40 L (130-400) K/uL MPV 10.8 (9.4-12.4) fL Immature Gran % (Auto) % Neut % (Auto) % Lymph % (Auto) % Mcminn % (Auto) % Eos % (Auto) % Baso % (Auto) % Neut # (Auto) (1.40-6.50) K/uL Lymph # (Auto) (1.20-3.40) K/uL Mcminn # (Auto) (0.11-0.59) K/uL Eos # (Auto) (0.00-0.50) K/uL Baso # (Auto) (0.00-0.20) K/uL Immature Gran # (Auto) (0.01-0.20) K/uL Neutrophils % (Manual) 19 % Lymphocytes % (Manual) 62 % Monocytes % (Manual) 4 % Eosinophils % (Manual) 5 % Basophils % (Manual) 4 % Metamyelocytes % (Man) 1 % Myelocytes % (Man) 2 % Blast Cells % (Manual) 3 % Neutrophils # (Manual) 0.12 L (1.40-6.50) K/uL Total Absolute Neuts 0.12 L* (1.4-6.5) K/uL Lymphocytes # (Manual) 0.39 L (1.2-3.4) K/uL Total Abs Lymphocytes 0.39 L (1.2-3.4) K/uL Monocytes # (Manual) 0.03 L (0.11-0.59) K/uL Eosinophils # (Manual) 0.03 (0-0.50) K/uL Basophils # (Manual) 0.03 (0-0.2) K/uL Metamyelocytes # (Man) 0.01 H (0-0) K/uL Myelocytes # (Manual) 0.01 H (0-0) K/uL Blast Cells # (Man) 0.02 H (0-0) K/uL Hyposegmented Neuts Blood Smear Review Tear Drop Cells 1+ Ovalocytes PT (9.0-12.0) Seconds INR (0.9-1.1) Sodium 137 (136-145) mmol/L Potassium 4.3 (3.5-5.1) mmol/L Chloride 109 H (98-107) mmol/L Carbon Dioxide 21 (21-32) mmol/L Anion Gap 7 (3-11) BUN 19 (6-23) mg/dl Creatinine 1.65 H D (0.6-1.4) mg/dl Est Cr Clr Drug Dosing 58.5 ml/min Est GFR ( Amer) 52.6 ml/min Est GFR (Non-Af Amer) 45.4 ml/min BUN/Creatinine Ratio 11.5 (10-20) Glucose 130 H (70-99(Fasting)) mg/dl POC Glucose 131 H 161 H (70-99) mg/dl Lactate (0.4-2.0) mmol/L Calcium 8.3 L (8.6-10.3) mg/dl Magnesium 1.5 L (1.7-2.4) mg/dl Total Bilirubin 1.7 H (0.2-1.0) mg/dl Direct Bilirubin (0-0.2) mg/dl AST 211 H (13-39) U/L ALT 120 H (7-52) U/L Alkaline Phosphatase 152 H (34-104) U/L Ammonia (18-72) umol/L Total Protein 5.4 L (6.0-8.3) gm/dl Albumin 2.5 L (3.4-5.0) gm/dl Globulin 2.9 (2.5-4.0) gm/dl Albumin/Globulin Ratio 0.9 (0.9-2) Lipase (11-82) U/L Procalcitonin (0-0.5) ng/ml Urine Color Urine Appearance (Clear) Urine pH (4.5-7.5) Ur Specific [place] (1.000-1.030) Urine Protein (Negative) Urine Glucose (UA) (Negative) Urine Ketones (Negative) Urine Blood (Negative) Urine Nitrite (Negative) Urine Bilirubin (Negative) Urine Urobilinogen (Negative) Ur Leukocyte Esterase (Negative) Urine WBC (Auto) (0-5) /hpf Urine RBC (Auto) (0-2) /hpf U Hyaline Cast (Auto) (0-2) /lpf U Epithel Cells (Auto) (0-2) /hpf Urine Bacteria (Auto) (None Seen) Stool Occult Bld Scrn (Negative) Stl C. cayetanensis PCR (NotDetected) Stool Rotavirus A PCR (NotDetected) Stl Adenov F 40/41 PCR (NotDetected) Stool Astrovirus (PCR) (NotDetected) Stool Campylobacter PCR (NotDetected) Stl C. diff Tox B Gene (Neg) Stool Cryptosporidium PCR (NotDetected) Stl E.coli Shiga Tox PCR (NotDetected) Stl Enterotoxigenic E PCR (NotDetected) Stool EPEC (PCR) (NotDetected) Stool EAEC (PCR) (NotDetected) Stl E. histolytica PCR (NotDetected) Stool Giardia Lamblia PCR (NotDetected) Stool Salmonella PCR (NotDetected) Stool Sapovirus (PCR) (NotDetected) Stl P. shigelloides PCR (NotDetected) Stl Shigella/EIEC PCR (NotDetected) St Y.enterocolitica PCR (NotDetected) Stool Vibrio (PCR) (NotDetected) Stl Vibrio cholerae PCR (NotDetected) Stl Norovirus GI/GII PCR (NotDetected) Ethyl Alcohol mg/dL (<10.0) mg/dl Blood Type Antibody Screen Crossmatch 09/21/23 09/21/23 09/21/23 Range/Units 16:25 11:33 07:31 WBC (4.8-10.8) K/ul RBC (4.70-6.10) M/uL Hgb (14.0-18.0) g/dl Hct (42.0-52.0) % MCV (80.0-100.0) fL MCH (25.0-34.0) pg MCHC (32.0-36.0) g/dL RDW Std Deviation (36.4-46.3) fL RDW Coeff of Bess (11.5-14.5) % Plt Count (130-400) K/uL MPV (9.4-12.4) fL Immature Gran % (Auto) % Neut % (Auto) % Lymph % (Auto) % Mcminn % (Auto) % Eos % (Auto) % Baso % (Auto) % Neut # (Auto) (1.40-6.50) K/uL Lymph # (Auto) (1.20-3.40) K/uL Mcminn # (Auto) (0.11-0.59) K/uL Eos # (Auto) (0.00-0.50) K/uL Baso # (Auto) (0.00-0.20) K/uL Immature Gran # (Auto) (0.01-0.20) K/uL Neutrophils % (Manual) % Lymphocytes % (Manual) % Monocytes % (Manual) % Eosinophils % (Manual) % Basophils % (Manual) % Metamyelocytes % (Man) % Myelocytes % (Man) % Blast Cells % (Manual) % Neutrophils # (Manual) (1.40-6.50) K/uL Total Absolute Neuts (1.4-6.5) K/uL Lymphocytes # (Manual) (1.2-3.4) K/uL Total Abs Lymphocytes (1.2-3.4) K/uL Monocytes # (Manual) (0.11-0.59) K/uL Eosinophils # (Manual) (0-0.50) K/uL Basophils # (Manual) (0-0.2) K/uL Metamyelocytes # (Man) (0-0) K/uL Myelocytes # (Manual) (0-0) K/uL Blast Cells # (Man) (0-0) K/uL Hyposegmented Neuts Blood Smear Review Tear Drop Cells Ovalocytes PT (9.0-12.0) Seconds INR (0.9-1.1) Sodium (136-145) mmol/L Potassium (3.5-5.1) mmol/L Chloride (98-107) mmol/L Carbon Dioxide (21-32) mmol/L Anion Gap (3-11) BUN (6-23) mg/dl Creatinine (0.6-1.4) mg/dl Est Cr Clr Drug Dosing ml/min Est GFR ( Amer) ml/min Est GFR (Non-Af Amer) ml/min BUN/Creatinine Ratio (10-20) Glucose (70-99(Fasting)) mg/dl POC Glucose 199 H 153 H 164 H (70-99) mg/dl Lactate (0.4-2.0) mmol/L Calcium (8.6-10.3) mg/dl Magnesium (1.7-2.4) mg/dl Total Bilirubin (0.2-1.0) mg/dl Direct Bilirubin (0-0.2) mg/dl AST (13-39) U/L ALT (7-52) U/L Alkaline Phosphatase (34-104) U/L Ammonia (18-72) umol/L Total Protein (6.0-8.3) gm/dl Albumin (3.4-5.0) gm/dl Globulin (2.5-4.0) gm/dl Albumin/Globulin Ratio (0.9-2) Lipase (11-82) U/L Procalcitonin (0-0.5) ng/ml Urine Color Urine Appearance (Clear) Urine pH (4.5-7.5) Ur Specific [place] (1.000-1.030) Urine Protein (Negative) Urine Glucose (UA) (Negative) Urine Ketones (Negative) Urine Blood (Negative) Urine Nitrite (Negative) Urine Bilirubin (Negative) Urine Urobilinogen (Negative) Ur Leukocyte Esterase (Negative) Urine WBC (Auto) (0-5) /hpf Urine RBC (Auto) (0-2) /hpf U Hyaline Cast (Auto) (0-2) /lpf U Epithel Cells (Auto) (0-2) /hpf Urine Bacteria (Auto) (None Seen) Stool Occult Bld Scrn (Negative) Stl C. cayetanensis PCR (NotDetected) Stool Rotavirus A PCR (NotDetected) Stl Adenov F 40/41 PCR (NotDetected) Stool Astrovirus (PCR) (NotDetected) Stool Campylobacter PCR (NotDetected) Stl C. diff Tox B Gene (Neg) Stool Cryptosporidium PCR (NotDetected) Stl E.coli Shiga Tox PCR (NotDetected) Stl Enterotoxigenic E PCR (NotDetected) Stool EPEC (PCR) (NotDetected) Stool EAEC (PCR) (NotDetected) Stl E. histolytica PCR (NotDetected) Stool Giardia Lamblia PCR (NotDetected) Stool Salmonella PCR (NotDetected) Stool Sapovirus (PCR) (NotDetected) Stl P. shigelloides PCR (NotDetected) Stl Shigella/EIEC PCR (NotDetected) St Y.enterocolitica PCR (NotDetected) Stool Vibrio (PCR) (NotDetected) Stl Vibrio cholerae PCR (NotDetected) Stl Norovirus GI/GII PCR (NotDetected) Ethyl Alcohol mg/dL (<10.0) mg/dl Blood Type Antibody Screen Crossmatch 09/21/23 09/21/23 09/20/23 Range/Units 05:23 05:21 21:16 WBC 0.35 L* (4.8-10.8) K/ul RBC 3.04 L (4.70-6.10) M/uL Hgb 8.2 L (14.0-18.0) g/dl Hct 25.0 L (42.0-52.0) % MCV 82.2 (80.0-100.0) fL MCH 27.0 (25.0-34.0) pg MCHC 32.8 (32.0-36.0) g/dL RDW Std Deviation 48.0 H (36.4-46.3) fL RDW Coeff of Bess 16.2 H (11.5-14.5) % Plt Count 79 L (130-400) K/uL MPV 9.0 L (9.4-12.4) fL Immature Gran % (Auto) % Neut % (Auto) % Lymph % (Auto) % Mcminn % (Auto) % Eos % (Auto) % Baso % (Auto) % Neut # (Auto) < 0.50 L* (1.40-6.50) K/uL Lymph # (Auto) (1.20-3.40) K/uL Mcminn # (Auto) (0.11-0.59) K/uL Eos # (Auto) (0.00-0.50) K/uL Baso # (Auto) (0.00-0.20) K/uL Immature Gran # (Auto) (0.01-0.20) K/uL Neutrophils % (Manual) % Lymphocytes % (Manual) % Monocytes % (Manual) % Eosinophils % (Manual) % Basophils % (Manual) % Metamyelocytes % (Man) % Myelocytes % (Man) % Blast Cells % (Manual) % Neutrophils # (Manual) (1.40-6.50) K/uL Total Absolute Neuts (1.4-6.5) K/uL Lymphocytes # (Manual) (1.2-3.4) K/uL Total Abs Lymphocytes (1.2-3.4) K/uL Monocytes # (Manual) (0.11-0.59) K/uL Eosinophils # (Manual) (0-0.50) K/uL Basophils # (Manual) (0-0.2) K/uL Metamyelocytes # (Man) (0-0) K/uL Myelocytes # (Manual) (0-0) K/uL Blast Cells # (Man) (0-0) K/uL Hyposegmented Neuts Blood Smear Review Tear Drop Cells Ovalocytes PT (9.0-12.0) Seconds INR (0.9-1.1) Sodium 138 (136-145) mmol/L Potassium 4.4 (3.5-5.1) mmol/L Chloride 110 H (98-107) mmol/L Carbon Dioxide 20 L (21-32) mmol/L Anion Gap 8 (3-11) BUN 26 H (6-23) mg/dl Creatinine 2.06 H D (0.6-1.4) mg/dl Est Cr Clr Drug Dosing 47.0 ml/min Est GFR ( Amer) 40.2 ml/min Est GFR (Non-Af Amer) 34.7 ml/min BUN/Creatinine Ratio 12.6 (10-20) Glucose 165 H (70-99(Fasting)) mg/dl POC Glucose 155 H (70-99) mg/dl Lactate (0.4-2.0) mmol/L Calcium 8.4 L (8.6-10.3) mg/dl Magnesium 1.2 L (1.7-2.4) mg/dl Total Bilirubin 1.8 H (0.2-1.0) mg/dl Direct Bilirubin (0-0.2) mg/dl AST 106 H (13-39) U/L ALT 71 H (7-52) U/L Alkaline Phosphatase 138 H (34-104) U/L Ammonia 20.0 (18-72) umol/L Total Protein 6.0 (6.0-8.3) gm/dl Albumin 2.8 L (3.4-5.0) gm/dl Globulin 3.2 (2.5-4.0) gm/dl Albumin/Globulin Ratio 0.9 (0.9-2) Lipase (11-82) U/L Procalcitonin 2.06 H (0-0.5) ng/ml Urine Color Urine Appearance (Clear) Urine pH (4.5-7.5) Ur Specific [place] (1.000-1.030) Urine Protein (Negative) Urine Glucose (UA) (Negative) Urine Ketones (Negative) Urine Blood (Negative) Urine Nitrite (Negative) Urine Bilirubin (Negative) Urine Urobilinogen (Negative) Ur Leukocyte Esterase (Negative) Urine WBC (Auto) (0-5) /hpf Urine RBC (Auto) (0-2) /hpf U Hyaline Cast (Auto) (0-2) /lpf U Epithel Cells (Auto) (0-2) /hpf Urine Bacteria (Auto) (None Seen) Stool Occult Bld Scrn (Negative) Stl C. cayetanensis PCR (NotDetected) Stool Rotavirus A PCR (NotDetected) Stl Adenov F 40/41 PCR (NotDetected) Stool Astrovirus (PCR) (NotDetected) Stool Campylobacter PCR (NotDetected) Stl C. diff Tox B Gene (Neg) Stool Cryptosporidium PCR (NotDetected) Stl E.coli Shiga Tox PCR (NotDetected) Stl Enterotoxigenic E PCR (NotDetected) Stool EPEC (PCR) (NotDetected) Stool EAEC (PCR) (NotDetected) Stl E. histolytica PCR (NotDetected) Stool Giardia Lamblia PCR (NotDetected) Stool Salmonella PCR (NotDetected) Stool Sapovirus (PCR) (NotDetected) Stl P. shigelloides PCR (NotDetected) Stl Shigella/EIEC PCR (NotDetected) St Y.enterocolitica PCR (NotDetected) Stool Vibrio (PCR) (NotDetected) Stl Vibrio cholerae PCR (NotDetected) Stl Norovirus GI/GII PCR (NotDetected) Ethyl Alcohol mg/dL (<10.0) mg/dl Blood Type Antibody Screen Crossmatch 09/20/23 09/20/23 09/20/23 Range/Units 16:10 12:08 10:15 WBC (4.8-10.8) K/ul RBC (4.70-6.10) M/uL Hgb (14.0-18.0) g/dl Hct (42.0-52.0) % MCV (80.0-100.0) fL MCH (25.0-34.0) pg MCHC (32.0-36.0) g/dL RDW Std Deviation (36.4-46.3) fL RDW Coeff of Bess (11.5-14.5) % Plt Count (130-400) K/uL MPV (9.4-12.4) fL Immature Gran % (Auto) % Neut % (Auto) % Lymph % (Auto) % Mcminn % (Auto) % Eos % (Auto) % Baso % (Auto) % Neut # (Auto) (1.40-6.50) K/uL Lymph # (Auto) (1.20-3.40) K/uL Mcminn # (Auto) (0.11-0.59) K/uL Eos # (Auto) (0.00-0.50) K/uL Baso # (Auto) (0.00-0.20) K/uL Immature Gran # (Auto) (0.01-0.20) K/uL Neutrophils % (Manual) % Lymphocytes % (Manual) % Monocytes % (Manual) % Eosinophils % (Manual) % Basophils % (Manual) % Metamyelocytes % (Man) % Myelocytes % (Man) % Blast Cells % (Manual) % Neutrophils # (Manual) (1.40-6.50) K/uL Total Absolute Neuts (1.4-6.5) K/uL Lymphocytes # (Manual) (1.2-3.4) K/uL Total Abs Lymphocytes (1.2-3.4) K/uL Monocytes # (Manual) (0.11-0.59) K/uL Eosinophils # (Manual) (0-0.50) K/uL Basophils # (Manual) (0-0.2) K/uL Metamyelocytes # (Man) (0-0) K/uL Myelocytes # (Manual) (0-0) K/uL Blast Cells # (Man) (0-0) K/uL Hyposegmented Neuts Blood Smear Review Tear Drop Cells Ovalocytes PT (9.0-12.0) Seconds INR (0.9-1.1) Sodium (136-145) mmol/L Potassium (3.5-5.1) mmol/L Chloride (98-107) mmol/L Carbon Dioxide (21-32) mmol/L Anion Gap (3-11) BUN (6-23) mg/dl Creatinine (0.6-1.4) mg/dl Est Cr Clr Drug Dosing ml/min Est GFR ( Amer) ml/min Est GFR (Non-Af Amer) ml/min BUN/Creatinine Ratio (10-20) Glucose (70-99(Fasting)) mg/dl POC Glucose 194 H 174 H (70-99) mg/dl Lactate (0.4-2.0) mmol/L Calcium (8.6-10.3) mg/dl Magnesium (1.7-2.4) mg/dl Total Bilirubin (0.2-1.0) mg/dl Direct Bilirubin (0-0.2) mg/dl AST (13-39) U/L ALT (7-52) U/L Alkaline Phosphatase (34-104) U/L Ammonia (18-72) umol/L Total Protein (6.0-8.3) gm/dl Albumin (3.4-5.0) gm/dl Globulin (2.5-4.0) gm/dl Albumin/Globulin Ratio (0.9-2) Lipase (11-82) U/L Procalcitonin (0-0.5) ng/ml Urine Color Urine Appearance (Clear) Urine pH (4.5-7.5) Ur Specific [place] (1.000-1.030) Urine Protein (Negative) Urine Glucose (UA) (Negative) Urine Ketones (Negative) Urine Blood (Negative) Urine Nitrite (Negative) Urine Bilirubin (Negative) Urine Urobilinogen (Negative) Ur Leukocyte Esterase (Negative) Urine WBC (Auto) (0-5) /hpf Urine RBC (Auto) (0-2) /hpf U Hyaline Cast (Auto) (0-2) /lpf U Epithel Cells (Auto) (0-2) /hpf Urine Bacteria (Auto) (None Seen) Stool Occult Bld Scrn Positive A (Negative) Stl C. cayetanensis PCR Not Detected (NotDetected) Stool Rotavirus A PCR Not Detected (NotDetected) Stl Adenov F 40/41 PCR Not Detected (NotDetected) Stool Astrovirus (PCR) Not Detected (NotDetected) Stool Campylobacter PCR Not Detected (NotDetected) Stl C. diff Tox B Gene Negative Cdiff Gene (Neg) Stool Cryptosporidium PCR Not Detected (NotDetected) Stl E.coli Shiga Tox PCR Not Detected (NotDetected) Stl Enterotoxigenic E PCR Not Detected (NotDetected) Stool EPEC (PCR) Not Detected (NotDetected) Stool EAEC (PCR) Not Detected (NotDetected) Stl E. histolytica PCR Not Detected (NotDetected) Stool Giardia Lamblia PCR Not Detected (NotDetected) Stool Salmonella PCR Not Detected (NotDetected) Stool Sapovirus (PCR) Not Detected (NotDetected) Stl P. shigelloides PCR Not Detected (NotDetected) Stl Shigella/EIEC PCR Not Detected (NotDetected) St Y.enterocolitica PCR Not Detected (NotDetected) Stool Vibrio (PCR) Not Detected (NotDetected) Stl Vibrio cholerae PCR Not Detected (NotDetected) Stl Norovirus GI/GII PCR Not Detected (NotDetected) Ethyl Alcohol mg/dL (<10.0) mg/dl Blood Type Antibody Screen Crossmatch 09/20/23 09/20/23 09/20/23 Range/Units 06:05 05:57 00:10 WBC 0.41 L* (4.8-10.8) K/ul RBC 2.95 L (4.70-6.10) M/uL Hgb 8.1 L (14.0-18.0) g/dl Hct 24.4 L (42.0-52.0) % MCV 82.7 (80.0-100.0) fL MCH 27.5 (25.0-34.0) pg MCHC 33.2 (32.0-36.0) g/dL RDW Std Deviation 47.9 H (36.4-46.3) fL RDW Coeff of Bess 16.0 H (11.5-14.5) % Plt Count 108 L (130-400) K/uL MPV 9.2 L (9.4-12.4) fL Immature Gran % (Auto) % Neut % (Auto) % Lymph % (Auto) % Mcminn % (Auto) % Eos % (Auto) % Baso % (Auto) % Neut # (Auto) < 0.50 L* (1.40-6.50) K/uL Lymph # (Auto) (1.20-3.40) K/uL Mcminn # (Auto) (0.11-0.59) K/uL Eos # (Auto) (0.00-0.50) K/uL Baso # (Auto) (0.00-0.20) K/uL Immature Gran # (Auto) (0.01-0.20) K/uL Neutrophils % (Manual) % Lymphocytes % (Manual) % Monocytes % (Manual) % Eosinophils % (Manual) % Basophils % (Manual) % Metamyelocytes % (Man) % Myelocytes % (Man) % Blast Cells % (Manual) % Neutrophils # (Manual) (1.40-6.50) K/uL Total Absolute Neuts (1.4-6.5) K/uL Lymphocytes # (Manual) (1.2-3.4) K/uL Total Abs Lymphocytes (1.2-3.4) K/uL Monocytes # (Manual) (0.11-0.59) K/uL Eosinophils # (Manual) (0-0.50) K/uL Basophils # (Manual) (0-0.2) K/uL Metamyelocytes # (Man) (0-0) K/uL Myelocytes # (Manual) (0-0) K/uL Blast Cells # (Man) (0-0) K/uL Hyposegmented Neuts Blood Smear Review Tear Drop Cells Ovalocytes PT (9.0-12.0) Seconds INR (0.9-1.1) Sodium 143 (136-145) mmol/L Potassium 4.4 (3.5-5.1) mmol/L Chloride 114 H (98-107) mmol/L Carbon Dioxide 19 L (21-32) mmol/L Anion Gap 10 (3-11) BUN 31 H (6-23) mg/dl Creatinine 2.60 H D (0.6-1.4) mg/dl Est Cr Clr Drug Dosing 37.4 ml/min Est GFR ( Amer) 30.4 ml/min Est GFR (Non-Af Amer) 26.2 ml/min BUN/Creatinine Ratio 11.9 (10-20) Glucose 155 H (70-99(Fasting)) mg/dl POC Glucose 128 H 137 H (70-99) mg/dl Lactate (0.4-2.0) mmol/L Calcium 8.2 L (8.6-10.3) mg/dl Magnesium (1.7-2.4) mg/dl Total Bilirubin 2.0 H (0.2-1.0) mg/dl Direct Bilirubin (0-0.2) mg/dl AST 93 H (13-39) U/L ALT 60 H (7-52) U/L Alkaline Phosphatase 130 H (34-104) U/L Ammonia (18-72) umol/L Total Protein 5.5 L (6.0-8.3) gm/dl Albumin 2.6 L (3.4-5.0) gm/dl Globulin 2.9 (2.5-4.0) gm/dl Albumin/Globulin Ratio 0.9 (0.9-2) Lipase (11-82) U/L Procalcitonin (0-0.5) ng/ml Urine Color Urine Appearance (Clear) Urine pH (4.5-7.5) Ur Specific [place] (1.000-1.030) Urine Protein (Negative) Urine Glucose (UA) (Negative) Urine Ketones (Negative) Urine Blood (Negative) Urine Nitrite (Negative) Urine Bilirubin (Negative) Urine Urobilinogen (Negative) Ur Leukocyte Esterase (Negative) Urine WBC (Auto) (0-5) /hpf Urine RBC (Auto) (0-2) /hpf U Hyaline Cast (Auto) (0-2) /lpf U Epithel Cells (Auto) (0-2) /hpf Urine Bacteria (Auto) (None Seen) Stool Occult Bld Scrn (Negative) Stl C. cayetanensis PCR (NotDetected) Stool Rotavirus A PCR (NotDetected) Stl Adenov F 40/41 PCR (NotDetected) Stool Astrovirus (PCR) (NotDetected) Stool Campylobacter PCR (NotDetected) Stl C. diff Tox B Gene (Neg) Stool Cryptosporidium PCR (NotDetected) Stl E.coli Shiga Tox PCR (NotDetected) Stl Enterotoxigenic E PCR (NotDetected) Stool EPEC (PCR) (NotDetected) Stool EAEC (PCR) (NotDetected) Stl E. histolytica PCR (NotDetected) Stool Giardia Lamblia PCR (NotDetected) Stool Salmonella PCR (NotDetected) Stool Sapovirus (PCR) (NotDetected) Stl P. shigelloides PCR (NotDetected) Stl Shigella/EIEC PCR (NotDetected) St Y.enterocolitica PCR (NotDetected) Stool Vibrio (PCR) (NotDetected) Stl Vibrio cholerae PCR (NotDetected) Stl Norovirus GI/GII PCR (NotDetected) Ethyl Alcohol mg/dL (<10.0) mg/dl Blood Type Antibody Screen Crossmatch 09/19/23 09/19/23 09/19/23 Range/Units 21:24 17:42 13:03 WBC 0.84 L* (4.8-10.8) K/ul RBC 2.81 L (4.70-6.10) M/uL Hgb 7.9 L 7.7 L (14.0-18.0) g/dl Hct 24.3 L 23.3 L (42.0-52.0) % MCV 82.9 (80.0-100.0) fL MCH 27.4 (25.0-34.0) pg MCHC 33.0 (32.0-36.0) g/dL RDW Std Deviation 45.7 (36.4-46.3) fL RDW Coeff of Bess 15.6 H (11.5-14.5) % Plt Count 114 L (130-400) K/uL MPV 8.8 L (9.4-12.4) fL Immature Gran % (Auto) 0.0 % Neut % (Auto) 57.6 % Lymph % (Auto) 25.9 % Mcminn % (Auto) 4.7 % Eos % (Auto) 9.4 % Baso % (Auto) 2.4 % Neut # (Auto) 0.49 L* (1.40-6.50) K/uL Lymph # (Auto) 0.22 L (1.20-3.40) K/uL Mcminn # (Auto) 0.04 L (0.11-0.59) K/uL Eos # (Auto) 0.08 (0.00-0.50) K/uL Baso # (Auto) 0.02 (0.00-0.20) K/uL Immature Gran # (Auto) 0.00 L (0.01-0.20) K/uL Neutrophils % (Manual) % Lymphocytes % (Manual) % Monocytes % (Manual) % Eosinophils % (Manual) % Basophils % (Manual) % Metamyelocytes % (Man) % Myelocytes % (Man) % Blast Cells % (Manual) % Neutrophils # (Manual) (1.40-6.50) K/uL Total Absolute Neuts (1.4-6.5) K/uL Lymphocytes # (Manual) (1.2-3.4) K/uL Total Abs Lymphocytes (1.2-3.4) K/uL Monocytes # (Manual) (0.11-0.59) K/uL Eosinophils # (Manual) (0-0.50) K/uL Basophils # (Manual) (0-0.2) K/uL Metamyelocytes # (Man) (0-0) K/uL Myelocytes # (Manual) (0-0) K/uL Blast Cells # (Man) (0-0) K/uL Hyposegmented Neuts Blood Smear Review Tear Drop Cells 1+ Ovalocytes 1+ PT (9.0-12.0) Seconds INR (0.9-1.1) Sodium (136-145) mmol/L Potassium (3.5-5.1) mmol/L Chloride (98-107) mmol/L Carbon Dioxide (21-32) mmol/L Anion Gap (3-11) BUN (6-23) mg/dl Creatinine (0.6-1.4) mg/dl Est Cr Clr Drug Dosing ml/min Est GFR ( Amer) ml/min Est GFR (Non-Af Amer) ml/min BUN/Creatinine Ratio (10-20) Glucose (70-99(Fasting)) mg/dl POC Glucose 140 H (70-99) mg/dl Lactate (0.4-2.0) mmol/L Calcium (8.6-10.3) mg/dl Magnesium (1.7-2.4) mg/dl Total Bilirubin (0.2-1.0) mg/dl Direct Bilirubin (0-0.2) mg/dl AST (13-39) U/L ALT (7-52) U/L Alkaline Phosphatase (34-104) U/L Ammonia (18-72) umol/L Total Protein (6.0-8.3) gm/dl Albumin (3.4-5.0) gm/dl Globulin (2.5-4.0) gm/dl Albumin/Globulin Ratio (0.9-2) Lipase (11-82) U/L Procalcitonin (0-0.5) ng/ml Urine Color Urine Appearance (Clear) Urine pH (4.5-7.5) Ur Specific [place] (1.000-1.030) Urine Protein (Negative) Urine Glucose (UA) (Negative) Urine Ketones (Negative) Urine Blood (Negative) Urine Nitrite (Negative) Urine Bilirubin (Negative) Urine Urobilinogen (Negative) Ur Leukocyte Esterase (Negative) Urine WBC (Auto) (0-5) /hpf Urine RBC (Auto) (0-2) /hpf U Hyaline Cast (Auto) (0-2) /lpf U Epithel Cells (Auto) (0-2) /hpf Urine Bacteria (Auto) (None Seen) Stool Occult Bld Scrn (Negative) Stl C. cayetanensis PCR (NotDetected) Stool Rotavirus A PCR (NotDetected) Stl Adenov F 40/41 PCR (NotDetected) Stool Astrovirus (PCR) (NotDetected) Stool Campylobacter PCR (NotDetected) Stl C. diff Tox B Gene (Neg) Stool Cryptosporidium PCR (NotDetected) Stl E.coli Shiga Tox PCR (NotDetected) Stl Enterotoxigenic E PCR (NotDetected) Stool EPEC (PCR) (NotDetected) Stool EAEC (PCR) (NotDetected) Stl E. histolytica PCR (NotDetected) Stool Giardia Lamblia PCR (NotDetected) Stool Salmonella PCR (NotDetected) Stool Sapovirus (PCR) (NotDetected) Stl P. shigelloides PCR (NotDetected) Stl Shigella/EIEC PCR (NotDetected) St Y.enterocolitica PCR (NotDetected) Stool Vibrio (PCR) (NotDetected) Stl Vibrio cholerae PCR (NotDetected) Stl Norovirus GI/GII PCR (NotDetected) Ethyl Alcohol mg/dL (<10.0) mg/dl Blood Type Antibody Screen Crossmatch 09/19/23 09/19/23 09/19/23 Range/Units 12:14 06:15 05:56 WBC 0.83 L* (4.8-10.8) K/ul RBC 2.46 L (4.70-6.10) M/uL Hgb 6.6 L* (14.0-18.0) g/dl Hct 20.8 L* (42.0-52.0) % MCV 84.6 (80.0-100.0) fL MCH 26.8 (25.0-34.0) pg MCHC 31.7 L (32.0-36.0) g/dL RDW Std Deviation 48.4 H (36.4-46.3) fL RDW Coeff of Bess 15.9 H (11.5-14.5) % Plt Count 113 L (130-400) K/uL MPV 9.3 L (9.4-12.4) fL Immature Gran % (Auto) % Neut % (Auto) % Lymph % (Auto) % Mcminn % (Auto) % Eos % (Auto) % Baso % (Auto) % Neut # (Auto) (1.40-6.50) K/uL Lymph # (Auto) (1.20-3.40) K/uL Mcminn # (Auto) (0.11-0.59) K/uL Eos # (Auto) (0.00-0.50) K/uL Baso # (Auto) (0.00-0.20) K/uL Immature Gran # (Auto) (0.01-0.20) K/uL Neutrophils % (Manual) % Lymphocytes % (Manual) % Monocytes % (Manual) % Eosinophils % (Manual) % Basophils % (Manual) % Metamyelocytes % (Man) % Myelocytes % (Man) % Blast Cells % (Manual) % Neutrophils # (Manual) (1.40-6.50) K/uL Total Absolute Neuts (1.4-6.5) K/uL Lymphocytes # (Manual) (1.2-3.4) K/uL Total Abs Lymphocytes (1.2-3.4) K/uL Monocytes # (Manual) (0.11-0.59) K/uL Eosinophils # (Manual) (0-0.50) K/uL Basophils # (Manual) (0-0.2) K/uL Metamyelocytes # (Man) (0-0) K/uL Myelocytes # (Manual) (0-0) K/uL Blast Cells # (Man) (0-0) K/uL Hyposegmented Neuts Blood Smear Review Tear Drop Cells Ovalocytes PT (9.0-12.0) Seconds INR (0.9-1.1) Sodium 145 (136-145) mmol/L Potassium 3.8 (3.5-5.1) mmol/L Chloride 114 H (98-107) mmol/L Carbon Dioxide 22 (21-32) mmol/L Anion Gap 9 (3-11) BUN 35 H (6-23) mg/dl Creatinine 3.00 H (0.6-1.4) mg/dl Est Cr Clr Drug Dosing 28.9 ml/min Est GFR ( Amer) 25.5 ml/min Est GFR (Non-Af Amer) 22.0 ml/min BUN/Creatinine Ratio 11.7 (10-20) Glucose 162 H (70-99(Fasting)) mg/dl POC Glucose 138 H 161 H (70-99) mg/dl Lactate (0.4-2.0) mmol/L Calcium 8.0 L (8.6-10.3) mg/dl Magnesium (1.7-2.4) mg/dl Total Bilirubin 1.7 H (0.2-1.0) mg/dl Direct Bilirubin (0-0.2) mg/dl AST 76 H (13-39) U/L ALT 49 (7-52) U/L Alkaline Phosphatase 115 H (34-104) U/L Ammonia (18-72) umol/L Total Protein 5.2 L (6.0-8.3) gm/dl Albumin 2.5 L (3.4-5.0) gm/dl Globulin 2.7 (2.5-4.0) gm/dl Albumin/Globulin Ratio 0.9 (0.9-2) Lipase (11-82) U/L Procalcitonin (0-0.5) ng/ml Urine Color Urine Appearance (Clear) Urine pH (4.5-7.5) Ur Specific [place] (1.000-1.030) Urine Protein (Negative) Urine Glucose (UA) (Negative) Urine Ketones (Negative) Urine Blood (Negative) Urine Nitrite (Negative) Urine Bilirubin (Negative) Urine Urobilinogen (Negative) Ur Leukocyte Esterase (Negative) Urine WBC (Auto) (0-5) /hpf Urine RBC (Auto) (0-2) /hpf U Hyaline Cast (Auto) (0-2) /lpf U Epithel Cells (Auto) (0-2) /hpf Urine Bacteria (Auto) (None Seen) Stool Occult Bld Scrn (Negative) Stl C. cayetanensis PCR (NotDetected) Stool Rotavirus A PCR (NotDetected) Stl Adenov F 40/41 PCR (NotDetected) Stool Astrovirus (PCR) (NotDetected) Stool Campylobacter PCR (NotDetected) Stl C. diff Tox B Gene (Neg) Stool Cryptosporidium PCR (NotDetected) Stl E.coli Shiga Tox PCR (NotDetected) Stl Enterotoxigenic E PCR (NotDetected) Stool EPEC (PCR) (NotDetected) Stool EAEC (PCR) (NotDetected) Stl E. histolytica PCR (NotDetected) Stool Giardia Lamblia PCR (NotDetected) Stool Salmonella PCR (NotDetected) Stool Sapovirus (PCR) (NotDetected) Stl P. shigelloides PCR (NotDetected) Stl Shigella/EIEC PCR (NotDetected) St Y.enterocolitica PCR (NotDetected) Stool Vibrio (PCR) (NotDetected) Stl Vibrio cholerae PCR (NotDetected) Stl Norovirus GI/GII PCR (NotDetected) Ethyl Alcohol mg/dL (<10.0) mg/dl Blood Type Antibody Screen Crossmatch 09/18/23 09/18/23 09/18/23 Range/Units 23:49 17:44 11:54 WBC (4.8-10.8) K/ul RBC (4.70-6.10) M/uL Hgb (14.0-18.0) g/dl Hct (42.0-52.0) % MCV (80.0-100.0) fL MCH (25.0-34.0) pg MCHC (32.0-36.0) g/dL RDW Std Deviation (36.4-46.3) fL RDW Coeff of Bess (11.5-14.5) % Plt Count (130-400) K/uL MPV (9.4-12.4) fL Immature Gran % (Auto) % Neut % (Auto) % Lymph % (Auto) % Mcminn % (Auto) % Eos % (Auto) % Baso % (Auto) % Neut # (Auto) (1.40-6.50) K/uL Lymph # (Auto) (1.20-3.40) K/uL [place]minn # (Auto) (0.11-0.59) K/uL Eos # (Auto) (0.00-0.50) K/uL Baso # (Auto) (0.00-0.20) K/uL Immature Gran # (Auto) (0.01-0.20) K/uL Neutrophils % (Manual) % Lymphocytes % (Manual) % Monocytes % (Manual) % Eosinophils % (Manual) % Basophils % (Manual) % Metamyelocytes % (Man) % Myelocytes % (Man) % Blast Cells % (Manual) % Neutrophils # (Manual) (1.40-6.50) K/uL Total Absolute Neuts (1.4-6.5) K/uL Lymphocytes # (Manual) (1.2-3.4) K/uL Total Abs Lymphocytes (1.2-3.4) K/uL Monocytes # (Manual) (0.11-0.59) K/uL Eosinophils # (Manual) (0-0.50) K/uL Basophils # (Manual) (0-0.2) K/uL Metamyelocytes # (Man) (0-0) K/uL Myelocytes # (Manual) (0-0) K/uL Blast Cells # (Man) (0-0) K/uL Hyposegmented Neuts Blood Smear Review Tear Drop Cells Ovalocytes PT (9.0-12.0) Seconds INR (0.9-1.1) Sodium (136-145) mmol/L Potassium (3.5-5.1) mmol/L Chloride (98-107) mmol/L Carbon Dioxide (21-32) mmol/L Anion Gap (3-11) BUN (6-23) mg/dl Creatinine (0.6-1.4) mg/dl Est Cr Clr Drug Dosing ml/min Est GFR ( Amer) ml/min Est GFR (Non-Af Amer) ml/min BUN/Creatinine Ratio (10-20) Glucose (70-99(Fasting)) mg/dl POC Glucose 139 H 157 H 169 H (70-99) mg/dl Lactate (0.4-2.0) mmol/L Calcium (8.6-10.3) mg/dl Magnesium (1.7-2.4) mg/dl Total Bilirubin (0.2-1.0) mg/dl Direct Bilirubin (0-0.2) mg/dl AST (13-39) U/L ALT (7-52) U/L Alkaline Phosphatase (34-104) U/L Ammonia (18-72) umol/L Total Protein (6.0-8.3) gm/dl Albumin (3.4-5.0) gm/dl Globulin (2.5-4.0) gm/dl Albumin/Globulin Ratio (0.9-2) Lipase (11-82) U/L Procalcitonin (0-0.5) ng/ml Urine Color Urine Appearance (Clear) Urine pH (4.5-7.5) Ur Specific [place] (1.000-1.030) Urine Protein (Negative) Urine Glucose (UA) (Negative) Urine Ketones (Negative) Urine Blood (Negative) Urine Nitrite (Negative) Urine Bilirubin (Negative) Urine Urobilinogen (Negative) Ur Leukocyte Esterase (Negative) Urine WBC (Auto) (0-5) /hpf Urine RBC (Auto) (0-2) /hpf U Hyaline Cast (Auto) (0-2) /lpf U Epithel Cells (Auto) (0-2) /hpf Urine Bacteria (Auto) (None Seen) Stool Occult Bld Scrn (Negative) Stl C. cayetanensis PCR (NotDetected) Stool Rotavirus A PCR (NotDetected) Stl Adenov F 40/41 PCR (NotDetected) Stool Astrovirus (PCR) (NotDetected) Stool Campylobacter PCR (NotDetected) Stl C. diff Tox B Gene (Neg) Stool Cryptosporidium PCR (NotDetected) Stl E.coli Shiga Tox PCR (NotDetected) Stl Enterotoxigenic E PCR (NotDetected) Stool EPEC (PCR) (NotDetected) Stool EAEC (PCR) (NotDetected) Stl E. histolytica PCR (NotDetected) Stool Giardia Lamblia PCR (NotDetected) Stool Salmonella PCR (NotDetected) Stool Sapovirus (PCR) (NotDetected) Stl P. shigelloides PCR (NotDetected) Stl Shigella/EIEC PCR (NotDetected) St Y.enterocolitica PCR (NotDetected) Stool Vibrio (PCR) (NotDetected) Stl Vibrio cholerae PCR (NotDetected) Stl Norovirus GI/GII PCR (NotDetected) Ethyl Alcohol mg/dL (<10.0) mg/dl Blood Type Antibody Screen Crossmatch 09/18/23 09/18/23 09/17/23 Range/Units 09:17 05:21 23:56 WBC 1.69 L (4.8-10.8) K/ul RBC 2.53 L (4.70-6.10) M/uL Hgb 6.7 L* (14.0-18.0) g/dl Hct 20.8 L* (42.0-52.0) % MCV 82.2 (80.0-100.0) fL MCH 26.5 (25.0-34.0) pg MCHC 32.2 (32.0-36.0) g/dL RDW Std Deviation 50.4 H (36.4-46.3) fL RDW Coeff of Bess 16.7 H (11.5-14.5) % Plt Count 115 L (130-400) K/uL MPV 8.8 L (9.4-12.4) fL Immature Gran % (Auto) % Neut % (Auto) % Lymph % (Auto) % Mcminn % (Auto) % Eos % (Auto) % Baso % (Auto) % Neut # (Auto) (1.40-6.50) K/uL Lymph # (Auto) (1.20-3.40) K/uL Mcminn # (Auto) (0.11-0.59) K/uL Eos # (Auto) (0.00-0.50) K/uL Baso # (Auto) (0.00-0.20) K/uL Immature Gran # (Auto) (0.01-0.20) K/uL Neutrophils % (Manual) % Lymphocytes % (Manual) % Monocytes % (Manual) % Eosinophils % (Manual) % Basophils % (Manual) % Metamyelocytes % (Man) % Myelocytes % (Man) % Blast Cells % (Manual) % Neutrophils # (Manual) (1.40-6.50) K/uL Total Absolute Neuts (1.4-6.5) K/uL Lymphocytes # (Manual) (1.2-3.4) K/uL Total Abs Lymphocytes (1.2-3.4) K/uL Monocytes # (Manual) (0.11-0.59) K/uL Eosinophils # (Manual) (0-0.50) K/uL Basophils # (Manual) (0-0.2) K/uL Metamyelocytes # (Man) (0-0) K/uL Myelocytes # (Manual) (0-0) K/uL Blast Cells # (Man) (0-0) K/uL Hyposegmented Neuts Blood Smear Review Tear Drop Cells Ovalocytes PT (9.0-12.0) Seconds INR (0.9-1.1) Sodium 141 (136-145) mmol/L Potassium 4.0 (3.5-5.1) mmol/L Chloride 110 H (98-107) mmol/L Carbon Dioxide 23 (21-32) mmol/L Anion Gap 8 (3-11) BUN 38 H (6-23) mg/dl Creatinine 3.22 H (0.6-1.4) mg/dl Est Cr Clr Drug Dosing 27.0 ml/min Est GFR ( Amer) 23.4 ml/min Est GFR (Non-Af Amer) 20.2 ml/min BUN/Creatinine Ratio 11.8 (10-20) Glucose 153 H (70-99(Fasting)) mg/dl POC Glucose 151 H 168 H (70-99) mg/dl Lactate (0.4-2.0) mmol/L Calcium 7.9 L (8.6-10.3) mg/dl Magnesium (1.7-2.4) mg/dl Total Bilirubin 1.6 H (0.2-1.0) mg/dl Direct Bilirubin (0-0.2) mg/dl AST 47 H (13-39) U/L ALT 42 (7-52) U/L Alkaline Phosphatase 131 H (34-104) U/L Ammonia (18-72) umol/L Total Protein 5.5 L (6.0-8.3) gm/dl Albumin 2.7 L (3.4-5.0) gm/dl Globulin 2.8 (2.5-4.0) gm/dl Albumin/Globulin Ratio 1.0 (0.9-2) Lipase (11-82) U/L Procalcitonin (0-0.5) ng/ml Urine Color Urine Appearance (Clear) Urine pH (4.5-7.5) Ur Specific [place] (1.000-1.030) Urine Protein (Negative) Urine Glucose (UA) (Negative) Urine Ketones (Negative) Urine Blood (Negative) Urine Nitrite (Negative) Urine Bilirubin (Negative) Urine Urobilinogen (Negative) Ur Leukocyte Esterase (Negative) Urine WBC (Auto) (0-5) /hpf Urine RBC (Auto) (0-2) /hpf U Hyaline Cast (Auto) (0-2) /lpf U Epithel Cells (Auto) (0-2) /hpf Urine Bacteria (Auto) (None Seen) Stool Occult Bld Scrn (Negative) Stl C. cayetanensis PCR (NotDetected) Stool Rotavirus A PCR (NotDetected) Stl Adenov F 40/41 PCR (NotDetected) Stool Astrovirus (PCR) (NotDetected) Stool Campylobacter PCR (NotDetected) Stl C. diff Tox B Gene (Neg) Stool Cryptosporidium PCR (NotDetected) Stl E.coli Shiga Tox PCR (NotDetected) Stl Enterotoxigenic E PCR (NotDetected) Stool EPEC (PCR) (NotDetected) Stool EAEC (PCR) (NotDetected) Stl E. histolytica PCR (NotDetected) Stool Giardia Lamblia PCR (NotDetected) Stool Salmonella PCR (NotDetected) Stool Sapovirus (PCR) (NotDetected) Stl P. shigelloides PCR (NotDetected) Stl Shigella/EIEC PCR (NotDetected) St Y.enterocolitica PCR (NotDetected) Stool Vibrio (PCR) (NotDetected) Stl Vibrio cholerae PCR (NotDetected) Stl Norovirus GI/GII PCR (NotDetected) Ethyl Alcohol mg/dL (<10.0) mg/dl Blood Type Antibody Screen Crossmatch 09/17/23 09/17/23 09/17/23 Range/Units 22:33 21:17 20:09 WBC (4.8-10.8) K/ul RBC (4.70-6.10) M/uL Hgb 7.6 L (14.0-18.0) g/dl Hct 23.9 L (42.0-52.0) % MCV (80.0-100.0) fL MCH (25.0-34.0) pg MCHC (32.0-36.0) g/dL RDW Std Deviation (36.4-46.3) fL RDW Coeff of Bess (11.5-14.5) % Plt Count (130-400) K/uL MPV (9.4-12.4) fL Immature Gran % (Auto) % Neut % (Auto) % Lymph % (Auto) % Mcminn % (Auto) % Eos % (Auto) % Baso % (Auto) % Neut # (Auto) (1.40-6.50) K/uL Lymph # (Auto) (1.20-3.40) K/uL Mcminn # (Auto) (0.11-0.59) K/uL Eos # (Auto) (0.00-0.50) K/uL Baso # (Auto) (0.00-0.20) K/uL Immature Gran # (Auto) (0.01-0.20) K/uL Neutrophils % (Manual) % Lymphocytes % (Manual) % Monocytes % (Manual) % Eosinophils % (Manual) % Basophils % (Manual) % Metamyelocytes % (Man) % Myelocytes % (Man) % Blast Cells % (Manual) % Neutrophils # (Manual) (1.40-6.50) K/uL Total Absolute Neuts (1.4-6.5) K/uL Lymphocytes # (Manual) (1.2-3.4) K/uL Total Abs Lymphocytes (1.2-3.4) K/uL Monocytes # (Manual) (0.11-0.59) K/uL Eosinophils # (Manual) (0-0.50) K/uL Basophils # (Manual) (0-0.2) K/uL Metamyelocytes # (Man) (0-0) K/uL Myelocytes # (Manual) (0-0) K/uL Blast Cells # (Man) (0-0) K/uL Hyposegmented Neuts Blood Smear Review Tear Drop Cells Ovalocytes PT (9.0-12.0) Seconds INR (0.9-1.1) Sodium (136-145) mmol/L Potassium (3.5-5.1) mmol/L Chloride (98-107) mmol/L Carbon Dioxide (21-32) mmol/L Anion Gap (3-11) BUN (6-23) mg/dl Creatinine (0.6-1.4) mg/dl Est Cr Clr Drug Dosing ml/min Est GFR ( Amer) ml/min Est GFR (Non-Af Amer) ml/min BUN/Creatinine Ratio (10-20) Glucose (70-99(Fasting)) mg/dl POC Glucose 144 H 179 H (70-99) mg/dl Lactate (0.4-2.0) mmol/L Calcium (8.6-10.3) mg/dl Magnesium (1.7-2.4) mg/dl Total Bilirubin (0.2-1.0) mg/dl Direct Bilirubin (0-0.2) mg/dl AST (13-39) U/L ALT (7-52) U/L Alkaline Phosphatase (34-104) U/L Ammonia (18-72) umol/L Total Protein (6.0-8.3) gm/dl Albumin (3.4-5.0) gm/dl Globulin (2.5-4.0) gm/dl Albumin/Globulin Ratio (0.9-2) Lipase (11-82) U/L Procalcitonin (0-0.5) ng/ml Urine Color Urine Appearance (Clear) Urine pH (4.5-7.5) Ur Specific [place] (1.000-1.030) Urine Protein (Negative) Urine Glucose (UA) (Negative) Urine Ketones (Negative) Urine Blood (Negative) Urine Nitrite (Negative) Urine Bilirubin (Negative) Urine Urobilinogen (Negative) Ur Leukocyte Esterase (Negative) Urine WBC (Auto) (0-5) /hpf Urine RBC (Auto) (0-2) /hpf U Hyaline Cast (Auto) (0-2) /lpf U Epithel Cells (Auto) (0-2) /hpf Urine Bacteria (Auto) (None Seen) Stool Occult Bld Scrn (Negative) Stl C. cayetanensis PCR (NotDetected) Stool Rotavirus A PCR (NotDetected) Stl Adenov F 40/41 PCR (NotDetected) Stool Astrovirus (PCR) (NotDetected) Stool Campylobacter PCR (NotDetected) Stl C. diff Tox B Gene (Neg) Stool Cryptosporidium PCR (NotDetected) Stl E.coli Shiga Tox PCR (NotDetected) Stl Enterotoxigenic E PCR (NotDetected) Stool EPEC (PCR) (NotDetected) Stool EAEC (PCR) (NotDetected) Stl E. histolytica PCR (NotDetected) Stool Giardia Lamblia PCR (NotDetected) Stool Salmonella PCR (NotDetected) Stool Sapovirus (PCR) (NotDetected) Stl P. shigelloides PCR (NotDetected) Stl Shigella/EIEC PCR (NotDetected) St Y.enterocolitica PCR (NotDetected) Stool Vibrio (PCR) (NotDetected) Stl Vibrio cholerae PCR (NotDetected) Stl Norovirus GI/GII PCR (NotDetected) Ethyl Alcohol mg/dL (<10.0) mg/dl Blood Type Antibody Screen Crossmatch 09/17/23 09/17/23 09/17/23 Range/Units 17:47 17:00 15:56 WBC (4.8-10.8) K/ul RBC (4.70-6.10) M/uL Hgb (14.0-18.0) g/dl Hct (42.0-52.0) % MCV (80.0-100.0) fL MCH (25.0-34.0) pg MCHC (32.0-36.0) g/dL RDW Std Deviation (36.4-46.3) fL RDW Coeff of Bess (11.5-14.5) % Plt Count (130-400) K/uL MPV (9.4-12.4) fL Immature Gran % (Auto) % Neut % (Auto) % Lymph % (Auto) % Mcminn % (Auto) % Eos % (Auto) % Baso % (Auto) % Neut # (Auto) (1.40-6.50) K/uL Lymph # (Auto) (1.20-3.40) K/uL Mcminn # (Auto) (0.11-0.59) K/uL Eos # (Auto) (0.00-0.50) K/uL Baso # (Auto) (0.00-0.20) K/uL Immature Gran # (Auto) (0.01-0.20) K/uL Neutrophils % (Manual) % Lymphocytes % (Manual) % Monocytes % (Manual) % Eosinophils % (Manual) % Basophils % (Manual) % Metamyelocytes % (Man) % Myelocytes % (Man) % Blast Cells % (Manual) % Neutrophils # (Manual) (1.40-6.50) K/uL Total Absolute Neuts (1.4-6.5) K/uL Lymphocytes # (Manual) (1.2-3.4) K/uL Total Abs Lymphocytes (1.2-3.4) K/uL Monocytes # (Manual) (0.11-0.59) K/uL Eosinophils # (Manual) (0-0.50) K/uL Basophils # (Manual) (0-0.2) K/uL Metamyelocytes # (Man) (0-0) K/uL Myelocytes # (Manual) (0-0) K/uL Blast Cells # (Man) (0-0) K/uL Hyposegmented Neuts Blood Smear Review Tear Drop Cells Ovalocytes PT (9.0-12.0) Seconds INR (0.9-1.1) Sodium (136-145) mmol/L Potassium (3.5-5.1) mmol/L Chloride (98-107) mmol/L Carbon Dioxide (21-32) mmol/L Anion Gap (3-11) BUN (6-23) mg/dl Creatinine (0.6-1.4) mg/dl Est Cr Clr Drug Dosing ml/min Est GFR ( Amer) ml/min Est GFR (Non-Af Amer) ml/min BUN/Creatinine Ratio (10-20) Glucose (70-99(Fasting)) mg/dl POC Glucose (70-99) mg/dl Lactate 1.4 (0.4-2.0) mmol/L Calcium (8.6-10.3) mg/dl Magnesium (1.7-2.4) mg/dl Total Bilirubin (0.2-1.0) mg/dl Direct Bilirubin (0-0.2) mg/dl AST (13-39) U/L ALT (7-52) U/L Alkaline Phosphatase (34-104) U/L Ammonia (18-72) umol/L Total Protein (6.0-8.3) gm/dl Albumin (3.4-5.0) gm/dl Globulin (2.5-4.0) gm/dl Albumin/Globulin Ratio (0.9-2) Lipase (11-82) U/L Procalcitonin (0-0.5) ng/ml Urine Color [place] Urine Appearance Cloudy A (Clear) Urine pH 5.5 (4.5-7.5) Ur Specific [place] 1.010 (1.000-1.030) Urine Protein 2+ H (Negative) Urine Glucose (UA) Negative (Negative) Urine Ketones Negative (Negative) Urine Blood 3+ H (Negative) Urine Nitrite Negative (Negative) Urine Bilirubin Negative (Negative) Urine Urobilinogen Negative (Negative) Ur Leukocyte Esterase Trace H (Negative) Urine WBC (Auto) 0-5 (0-5) /hpf Urine RBC (Auto) >20 H (0-2) /hpf U Hyaline Cast (Auto) 0-2 (0-2) /lpf U Epithel Cells (Auto) 0-2 (0-2) /hpf Urine Bacteria (Auto) None Seen (None Seen) Stool Occult Bld Scrn (Negative) Stl C. cayetanensis PCR (NotDetected) Stool Rotavirus A PCR (NotDetected) Stl Adenov F 40/41 PCR (NotDetected) Stool Astrovirus (PCR) (NotDetected) Stool Campylobacter PCR (NotDetected) Stl C. diff Tox B Gene (Neg) Stool Cryptosporidium PCR (NotDetected) Stl E.coli Shiga Tox PCR (NotDetected) Stl Enterotoxigenic E PCR (NotDetected) Stool EPEC (PCR) (NotDetected) Stool EAEC (PCR) (NotDetected) Stl E. histolytica PCR (NotDetected) Stool Giardia Lamblia PCR (NotDetected) Stool Salmonella PCR (NotDetected) Stool Sapovirus (PCR) (NotDetected) Stl P. shigelloides PCR (NotDetected) Stl Shigella/EIEC PCR (NotDetected) St Y.enterocolitica PCR (NotDetected) Stool Vibrio (PCR) (NotDetected) Stl Vibrio cholerae PCR (NotDetected) Stl Norovirus GI/GII PCR (NotDetected) Ethyl Alcohol mg/dL < 10.0 (<10.0) mg/dl Blood Type B Positive Antibody Screen NEGATIVE Crossmatch See Detail 09/17/23 09/17/23 Range/Units 15:21 15:12 WBC 2.35 L (4.8-10.8) K/ul RBC 2.72 L (4.70-6.10) M/uL Hgb 7.2 L (14.0-18.0) g/dl Hct 22.2 L (42.0-52.0) % MCV 81.6 (80.0-100.0) fL MCH 26.5 (25.0-34.0) pg MCHC 32.4 (32.0-36.0) g/dL RDW Std Deviation 48.2 H (36.4-46.3) fL RDW Coeff of Bess 16.4 H (11.5-14.5) % Plt Count 147 (130-400) K/uL MPV 9.1 L (9.4-12.4) fL Immature Gran % (Auto) 0.9 % Neut % (Auto) 88.0 % Lymph % (Auto) 7.7 % Mcminn % (Auto) 2.1 % Eos % (Auto) 0.9 % Baso % (Auto) 0.4 % Neut # (Auto) 2.07 (1.40-6.50) K/uL Lymph # (Auto) 0.18 L (1.20-3.40) K/uL Mcminn # (Auto) 0.05 L (0.11-0.59) K/uL Eos # (Auto) 0.02 (0.00-0.50) K/uL Baso # (Auto) 0.01 (0.00-0.20) K/uL Immature Gran # (Auto) 0.02 (0.01-0.20) K/uL Neutrophils % (Manual) % Lymphocytes % (Manual) % Monocytes % (Manual) % Eosinophils % (Manual) % Basophils % (Manual) % Metamyelocytes % (Man) % Myelocytes % (Man) % Blast Cells % (Manual) % Neutrophils # (Manual) (1.40-6.50) K/uL Total Absolute Neuts (1.4-6.5) K/uL Lymphocytes # (Manual) (1.2-3.4) K/uL Total Abs Lymphocytes (1.2-3.4) K/uL Monocytes # (Manual) (0.11-0.59) K/uL Eosinophils # (Manual) (0-0.50) K/uL Basophils # (Manual) (0-0.2) K/uL Metamyelocytes # (Man) (0-0) K/uL Myelocytes # (Manual) (0-0) K/uL Blast Cells # (Man) (0-0) K/uL Hyposegmented Neuts 2+ Blood Smear Review Cancelled Tear Drop Cells Ovalocytes PT 11.4 (9.0-12.0) Seconds INR 1.0 (0.9-1.1) Sodium 136 (136-145) mmol/L Potassium 4.0 (3.5-5.1) mmol/L Chloride 104 (98-107) mmol/L Carbon Dioxide 22 (21-32) mmol/L Anion Gap 10 (3-11) BUN 37 H (6-23) mg/dl Creatinine 3.20 H (0.6-1.4) mg/dl Est Cr Clr Drug Dosing 27.1 ml/min Est GFR ( Amer) 23.6 ml/min Est GFR (Non-Af Amer) 20.4 ml/min BUN/Creatinine Ratio 11.6 (10-20) Glucose 180 H (70-99(Fasting)) mg/dl POC Glucose (70-99) mg/dl Lactate (0.4-2.0) mmol/L Calcium 7.9 L (8.6-10.3) mg/dl Magnesium (1.7-2.4) mg/dl Total Bilirubin 1.3 H (0.2-1.0) mg/dl Direct Bilirubin 0.4 H (0-0.2) mg/dl AST 59 H (13-39) U/L ALT 55 H (7-52) U/L Alkaline Phosphatase 156 H (34-104) U/L Ammonia (18-72) umol/L Total Protein 6.0 (6.0-8.3) gm/dl Albumin 2.9 L (3.4-5.0) gm/dl Globulin 3.1 (2.5-4.0) gm/dl Albumin/Globulin Ratio 0.9 (0.9-2) Lipase < 3 L (11-82) U/L Procalcitonin 7.62 H (0-0.5) ng/ml Urine Color Urine Appearance (Clear) Urine pH (4.5-7.5) Ur Specific [place] (1.000-1.030) Urine Protein (Negative) Urine Glucose (UA) (Negative) Urine Ketones (Negative) Urine Blood (Negative) Urine Nitrite (Negative) Urine Bilirubin (Negative) Urine Urobilinogen (Negative) Ur Leukocyte Esterase (Negative) Urine WBC (Auto) (0-5) /hpf Urine RBC (Auto) (0-2) /hpf U Hyaline Cast (Auto) (0-2) /lpf U Epithel Cells (Auto) (0-2) /hpf Urine Bacteria (Auto) (None Seen) Stool Occult Bld Scrn (Negative) Stl C. cayetanensis PCR (NotDetected) Stool Rotavirus A PCR (NotDetected) Stl Adenov F 40/41 PCR (NotDetected) Stool Astrovirus (PCR) (NotDetected) Stool Campylobacter PCR (NotDetected) Stl C. diff Tox B Gene (Neg) Stool Cryptosporidium PCR (NotDetected) Stl E.coli Shiga Tox PCR (NotDetected) Stl Enterotoxigenic E PCR (NotDetected) Stool EPEC (PCR) (NotDetected) Stool EAEC (PCR) (NotDetected) Stl E. histolytica PCR (NotDetected) Stool Giardia Lamblia PCR (NotDetected) Stool Salmonella PCR (NotDetected) Stool Sapovirus (PCR) (NotDetected) Stl P. shigelloides PCR (NotDetected) Stl Shigella/EIEC PCR (NotDetected) St Y.enterocolitica PCR (NotDetected) Stool Vibrio (PCR) (NotDetected) Stl Vibrio cholerae PCR (NotDetected) Stl Norovirus GI/GII PCR (NotDetected) Ethyl Alcohol mg/dL (<10.0) mg/dl Blood Type Antibody Screen Crossmatch Diagnostic Findings Abdomen/Pelvis CT 09/17/23 15:[address] WITHOUT CONTRAST CT DOSE: 2106. mGy.cm HISTORY: Acute renal failure arf, pancreatic ca TECHNIQUE: Multiaxial CT images of the abdomen and pelvis were performed without contrast. A dose lowering technique was utilized adhering to the principles of ALARA. COMPARISON STUDY: CT 07/27/2023 FINDINGS: Cardiomegaly with decreased attenuation of the cardiac blood pool. Trace pericardial effusion. Moderate coronary artery calcifications. Bibasilar groundglass densities with mucus plugging. No free air identified. 15.7 cm spleen. Unremarkable adrenal glands. There is a stent device attending from the stomach into the gallbladder. Gallbladder wall thickening with perivesicular stranding. Debris within the gallbladder lumen is noted with pneumobilia. A common bile duct stent is also in place. Heterogeneity of the liver. Indeterminate 6 mm hypodense focus of the hepatic dome is unchanged. The liver is heterogeneous. Pancreatic head mass redemonstrated measuring approximately 3.7 cm. Periportal lymph nodes measure up to 1.3 cm, similar to prior. Wall thickening of the distal stomach is likely reactive. Bilateral nephrolithiasis. Calculi of the left kidney measures up to 10 mm. Calculi of the right kidney measure up to 12 mm cyst in the inferior pole. Linear 9 mm calculus in the proximal left ureter. There is mild left-sided hydroureteronephrosis. Mild to moderate right-sided hydroureteronephrosis secondary to to proximal right ureteral calculi measuring 9 and 10 mm respectively at the level of L2. Bilateral perinephric stranding. Urinary bladder wall thickening with partial distention. Layering stone fragments in the dependent left aspect of the urinary bladder. Prostamegaly. Small fat filled inguinal hernias with hydroceles. Distal esophageal wall thickening. Small hiatal hernia. Is nonspecific wall thickening of the rectosigmoid with adjacent inflammatory stranding. Colonic div erticulosis without acute diverticulitis. There is additional wall thickening of the ascending colon. Noninflamed appendix. No new bone lesions are identified. IMPRESSION: 1. Moderate right-sided hydroureteronephrosis secondary to two obstructing proximal right ureteral calculi measuring up to 10 mm. 2. Mild left-sided hydroureteronephrosis secondary to an obstructing 9 mm calculus within the proximal left ureter. 3. Bilateral nephrolithiasis with urinary bladder calculi. 4. Similar size of the pancreatic head mass with periportal lymphadenopathy. 5. Contracted gallbladder with wall thickening and pericholecystic edema again noted. Common bile duct stent is in place. 6. Nonspecific wall thickening of the rectosigmoid and ascending colon with adjacent inflammatory stranding. Correlate clinically to exclude a nonspecific proctocolitis. 7. Additional findings as above. ACT 112: Negative or not required by law. The above report was generated using voice recognition software. It may contain grammatical, syntax or spelling errors. Electronically signed by: Randy Mukherjee M.D. 09/17/2023 5:[address] 09/17/23 15:55 CT head/brain wo con CLINICAL HISTORY: 58 years-old Male with ams, somnloence, panc ca. Acutely altered mental status TECHNIQUE: Multiple axial CT images of the head were obtained without contrast. A dose lowering technique was utilized adhering to the principles of ALARA. COMPARISON: 09/13/2016 FINDINGS: No acute intracranial hemorrhage, midline shift, intra-axial mass, hydrocephalus, territorial ischemia or abnormal extra-axial collection. Encephalomalacia related to chronic right MCA infarct. 1.7 cm extra-axial calcification adjacent to the superior frontal lobe on image 25 series 3 again noted which may represent a meningioma. Involutional changes. The calvarium is intact. The paranasal sinuses, mastoid air cells, and middle ear cavities are clear. IMPRESSION: 1. No acute intracranial abnormality. 2. Chronic right MCA infarct. ACT 112: Negative or not required by law. The above report was generated using voice recognition software. It may contain grammatical, syntax or spelling errors. Electronically signed by: Randy Mukherjee M.D. 09/17/2023 5:03 PM Abdomen Fluoroscopy 09/17/23 20:34 FL KUB CLINICAL HISTORY: B/L CYSTO COMPARISON STUDY: 09/17/2023. FLUOROSCOPY TIME: 16 seconds FLUOROSCOPY IMAGES: 6 Ka,r: 3.3 mGy FINDINGS: Retrograde opacification of the bilateral renal collecting systems followed by placement of a left ureteral stent. Only the proximal portion of the stent is identified but appears in good position. Incidental note is made of common bile duct and duodenal stents within the right upper quadrant. IMPRESSION: Fluoroscopic assistance as above. ACT 112: Negative or not required by law. Electronically signed by: Keegan Galo M.D. 09/18/2023 7:06 AM PG Care Time/CCT Total # of Minutes Spent Total Time Spent with Patient: Total time spent is greater than 50% in coordination of care (as documented) at patient's floor/unit and/or counseling patient: I spent 135 minutes overall addressing this case: 25 min in medical data review/discussion with referring provider(s) and/or preparation for the visit incl OSH data review/[employer] EMR Link review 20 min in direct interaction with the patient/exam 60 min in Advance Care Planning/Goals of Care discussions as detailed above in note (must be >16min) 15 min in subsequent review and synthesis of assessment and plan 15 min communicating with other providers regarding the patient's case: primary, nursing, OSH oncology Prolonged Care Time Prolonged Care Time: Yes Advanced Care Planning 35356 Advanced Care Planning 30 Min 59382 Advanced Care Planning Additional 30 [place] [address] IN/OBS CONSULT LVL 5,80M Patient Type New History Comprehensive Exam Comprehensive Medical Decision Making High Complexity Diagnoses Weakness generalized R53.1 Cancer related pain G89.3 Severe muscle deconditioning R29.898 Advanced care planning/counseling discussion Z71.89 Palliative care by specialist Z51.5 Additional Codes Advanced Care Planning - 68814 Advanced Care Planning 30 Min: 74950 Advanced Care Planning 30 Min ([id number]) Advanced Care Planning - 70225 Advanced Care Planning Additional 30 Min: 30378 Advanced Care Planning Additional 30 Min ([id number]) Prolonged Care Time - Prolonged Care Time: Yes ([id number])
[2023-09-23 06:32] LABS: Albumin Globulin Ratio 0.9 (0.9-2); Albumin Level 2.5 gm/dl (3.4-5.0); BUN Creatinine Ratio 15.3 (10-20); Bilirubin,Total 2.2 mg/dl (0.2-1.0); Creatinine Clr Calc Pharmacy 59.3 ml/min; Est GFR (African American) 53.4 ml/min; Est GFR (Non-African American) 46.1 ml/min; Globulin 2.8 gm/dl (2.5-4.0); Magnesium 1.5 mg/dl (1.7-2.4); Potassium 4.3 mmol/L (3.5-5.1); Total Protein 5.3 gm/dl (6.0-8.3)
[2023-09-23 06:58] LABS: Hematocrit (blood only) 21.9 % (42.0-52.0); Hemoglobin 7.3 g/dl (14.0-18.0); Mean Corpuscular Hemoglobin 27.1 pg (25.0-34.0); Mean Corpuscular Hgb Conc 33.3 g/dL (32.0-36.0); Mean Corpuscular Volume 81.4 fL (80.0-100.0); Mean Platelet Volume 10.4 fL (9.4-12.4); Nucleated RBC # (auto) 0.11 K/uL (0.00-0.12); Nucleated RBC % (auto) 4.6 %; Platelet Count 42 K/uL (130-400); RDW Coefficient of Variation 16.2 % (11.5-14.5); RDW Standard Deviation 47.8 fL (36.4-46.3); Red Blood Count 2.69 M/uL (4.70-6.10)
[2023-09-23 07:00] LABS: ALC (manual) 1.15 K/uL (1.2-3.4); ANC (manual) 0.72 K/uL (1.4-6.5); Basophils # (manual) 0.05 K/uL (0-0.2); Basophils % (manual) 2 %; Blast # (manual) 0.12 K/uL (0-0); Blast Cells % (manual) 5 %; Eosinophils # (manual) 0.02 K/uL (0-0.50); Eosinophils % (manual) 1 %; Lymphocytes # (manual) 1.15 K/uL (1.2-3.4); Lymphocytes % (manual) 48 %; Monocytes # (manual) 0.24 K/uL (0.11-0.59); Monocytes % (manual) 10 %; Myelocytes % (manual) 4 %; Neutrophils # (manual) 0.72 K/uL (1.40-6.50); Neutrophils % (manual) 30 %; RBC Morphology Unremarkable
--- NOTE | 2023-09-23 07:14 | Ultrasound Report ---
ULTRASOUND RIGHT UPPER QUADRANT ABDOMEN CLINICAL HISTORY: Elevated hepatic transaminases. COMPARISON STUDY: Abdominal CT dated 09/17/2023 TECHNIQUE: Real-time, grayscale, and color flow sonography of the right upper quadrant of the abdomen was performed. Images are reviewed in the transverse and longitudinal planes. FINDINGS: Liver: The liver is normal in size and heterogeneous and echotexture. There is nodularity of the hepa tic surface contour. There is no intrahepatic biliary ductal dilatation. The main portal vein is solano nt. Gallbladder: The gallbladder wall is thickened and the gallbladder is filled with gas the. This degra tena assessment for gallstones. There is trace pericholecystic fluid. A sonographic Irving's sign is r eportedly absent. A stent is noted in the common bile duct which measures up to 0.7 cm in diameter. Pancreas: Visualized portions of the pancreatic head and body are normal in appearance. The splenic v ein is patent. The majority pancreas is not visualized due to overlying bowel gas. Right kidney: Survey images of the right kidney demonstrate normal size and echotexture. There is no hydronephrosis. Right renal calculi measuring up to 7 mm. Ascites: There is trace perihepatic ascites. IMPRESSION: 1. Heterogeneous liver with mild nodularity of the surface contour. This suggests morphologic change of cirrhosis. 2. There is gas throughout the gallbladder lumen which degrades assessment for gallstones. Gallbladde r wall thickening is nonspecific. 3. Trace perihepatic ascites. 4. A common bile duct stent is in place. ACT 112: Negative or not required by law. Electronically signed by: Glen Jackman M.D. 09/23/2023 7:12 AM
[2023-09-23] MEDS ORDERED: OXYMETAZOLINE 0.05% 30 ML BTL NAE PRN (11:53)
[2023-09-23] MEDS: MAGNESIUM SULFATE / D5W 1 GM/100 ML BAG IV ONE (12:16)
--- NOTE | 2023-09-23 16:52 | Hospitalist Progress Note ---
Date of Service September 23, 2023 Assessment & Plan (1) Acute renal failure: (2) Other ureteric obstruction: (3) Ureterolithiasis: Plan: 58-year-old man with history of CVA with left hemiplegia, diabetes mellitus type 2, pancreatic cancer metastasized to the liver, CAD, hypertension, Recent hospitalization from 07/28/2023 to 07/31/2023 for acute cholecystitis and required 2 PRBC during the admission, status post EUS guided GB drainage and Axios stent placement on 08/11/2023, Who presented today ER with hematuria that started yesterday Acute kidney injury Obstructive uropathy Could have ATN Pancolitis --CT ABD:Moderate right-sided hydroureteronephrosis secondary to two obstructing proximal right ureteral calculi measuring up to 10 mm.. Mild left-sided hydroureteronephrosis secondary to an obstructing 9 mm calculus within the proximal left ureter. Bilateral nephrolithiasis with urinary bladder calculi. Similar size of the pancreatic head mass with periportal lymphadenopathy. Contracted gallbladder with wall thickening and pericholecystic edema again noted. Common bile duct stent is in place. Nonspecific wall thickening of the rectosigmoid and ascending colon with adjacent inflammatory stranding. Correlate clinically to exclude a nonspecific proctocolitis. --S/P Cystoscopy, Retrograde Pyelogram with Bilateral Stent Insertion by Dr. Ortega on 09/17/2023 --Blood cultures negative to date --Urine culture negative --Stool studies negative for infection Continue IV Zosyn to complete 7-day course Appreciate nephrology, urology input Monitor volume status, renal function Cr:1.6 today Discussed with nephrology on 09/23/2023 On gentle IV fluids Plan to discontinue antibiotics as able Acute metabolic encephalopathy Likely multifactorial: Renal failure, baclofen --CT head:No acute intracranial abnormality.Chronic right MCA infarct. Avoid sedative medications as able Renally dose meds Baclofen on hold No other obvious source of infection Mental status improved Pancytopenia Neutropenia Likely due to chemotherapy Discussed with oncology Dr. Acharya on 09/21/2023: Recommends to start Neupogen Monitor CBC closely Needs follow-up with oncology on discharge Continue Neupogen Neutropenia slowly improving Thrombocytopenia Given transient epistaxis and ongoing minimal hematuria Will give platelet transfusions Monitor Oral thrush Continue nystatin Hypomagnesemia Replete electrolytes as needed Monitor (4) Anemia: Plan: Acute on chronic anemia Thrombocytopenia Positive fecal occult Possibly hematuria contributed as well reported 2 episodes of hematemesis at home Possible Upper GI bleed On 09/18/23, GI evaluated and noted currently declined EGD at the time and wished to continue PPI therapy. S/P 2 PRBC Hb 7.3 today Appreciate GI input Given risks versus benefits, EGD currently deferred Will likely benefit from EGD as outpatient Monitor CBC Will repeat H&H tonight (5) Pancreatic cancer: Plan: Follow-up as outpatient Palliative care consulted to address goals of care (6) Elevated LFTs: (7) Transaminitis: Plan: Likely related to metastatic pancreatic cancer on chemo. --Liver USD:Heterogeneous liver with mild nodularity of the surface contour. This suggests morphologic change of cirrhosis. There is gas throughout the gallbladder lumen which degrades assessment for gallstones. Gallbladder wall thickening is nonspecific. Trace perihepatic ascites. A common bile duct stent is in place. Monitor LFTs Avoid nephrotoxic agents as able Normal ammonia Discussed with GI on 09/22/2023 Continue to monitor (8) HTN (hypertension): Plan: Blood pressure improved Continue to hold home losartan Monitor blood pressure (9) DMII (diabetes mellitus, type 2): Plan: Per , patient was on Lantus 10 units daily and metformin 500 mg twice daily. Hold home metformin. Continue insulin while hospitalized Monitor blood glucose levels (10) CAD (coronary artery disease): Plan: History of CAD. Resume aspirin, Plavix as able Continue metoprolol (11) DVT prophylaxis: Plan: SCD for now Re: Thrombocytopenia, hematuria Code Status: DNI/DNR Admission and Anticipated Discharge Date Admission Date: September 17, 2023 Subjective Patient is seen and examined at bedside Had transient nosebleed, transient confusion this morning Drowsy but oriented during my encounter Discussed with patient's family at bedside Still has minimal hematuria Offers no other complaints Neutropenia slowly improving Patient denies any chest pain, dyspnea, nausea, vomiting, abdominal pain Review of Systems Review of Systems: All systems reviewed & are unremarkable except as noted in Subjective Physical Exam Physical Exam: Physical Exam: Vitals signs as noted above General Appearance:Moderately built and nourished, no apparent distress Head: normocephalic, Atraumatic Eyes: normal inspection, EOMI Neck: supple, Trachea midline Respiratory/Chest: Normal breath sounds, CTA, No accessory muscle use Cardiovascular: S1, S2, No murmur Abdomen/GI:Soft, Non tender, Bowel sounds present Extremities/Musculoskeletal:normal inspection, no edema Neurologic/Psych:AAO, chronic left hemiplegia Skin: normal color, warm Results & Data Results & Data Vital Signs (Past 12 Hours) Vital Signs Temp Pulse Pulse Resp BP Pulse Ox O2 Del Method 09/23/23 15:52 37.1 C 89 17 127/76 96 Room Air 09/23/23 11:00 37.1 C 81 18 116/66 98 Room Air 09/23/23 07:10 37.1 C 82 18 115/61 95 Room Air 09/23/23 07:00 82 Laboratory Results Short CBC 09/23/23 Range/Units 05:59 WBC 2.40 L (4.8-10.8) K/ul Hgb 7.3 L (14.0-18.0) g/dl Hct 21.9 L (42.0-52.0) % Plt Count 42 L (130-400) K/uL BMP 09/23/23 05:59 Sodium 135 L Potassium 4.3 Chloride 108 H Carbon Dioxide 22 BUN 25 H Creatinine 1.63 H Glucose 156 H Calcium 8.0 L Liver Function 09/23/23 Range/Units 05:59 Total Bilirubin 2.2 H (0.2-1.0) mg/dl AST 182 H (13-39) U/L ALT 116 H (7-52) U/L Alkaline Phosphatase 167 H (34-104) U/L Albumin 2.5 L (3.4-5.0) gm/dl (1) Acute renal failure Acute renal failure type: unspecified Qualified Code(s): N17.9 - Acute kidney failure, unspecified (5) Pancreatic cancer Pancreatic malignancy location: unspecified Qualified Code(s): C25.9 - Malignant neoplasm of pancreas, unspecified
[2023-09-23 21:31] LABS: Hematocrit (blood only) 21.5 % (42.0-52.0); Hemoglobin 7.2 g/dl (14.0-18.0)
[2023-09-24 07:48] LABS: Albumin Globulin Ratio 0.9 (0.9-2); Albumin Level 2.4 gm/dl (3.4-5.0); BUN Creatinine Ratio 14.5 (10-20); Bilirubin,Total 1.8 mg/dl (0.2-1.0); Calcium 7.9 mg/dl (8.6-10.3); Creatinine Clr Calc Pharmacy 52.3 ml/min; Est GFR (African American) 52.2 ml/min; Est GFR (Non-African American) 45.1 ml/min; Globulin 2.7 gm/dl (2.5-4.0); Magnesium 1.5 mg/dl (1.7-2.4); Total Protein 5.1 gm/dl (6.0-8.3)
[2023-09-24 07:56] LABS: Hemoglobin 7.3 g/dl (14.0-18.0); Mean Corpuscular Hemoglobin 26.7 pg (25.0-34.0); Mean Corpuscular Hgb Conc 33.2 g/dL (32.0-36.0); Mean Corpuscular Volume 80.6 fL (80.0-100.0); Mean Platelet Volume 10.2 fL (9.4-12.4); Nucleated RBC # (auto) 0.92 K/uL (0.00-0.12); Nucleated RBC % (auto) 8.4 %; Platelet Count 106 K/uL (130-400); RDW Coefficient of Variation 16.5 % (11.5-14.5); RDW Standard Deviation 47.2 fL (36.4-46.3); Red Blood Count 2.73 M/uL (4.70-6.10)
[2023-09-24 09:09] LABS: ANC (manual) 3.63 K/uL (1.4-6.5); Blast # (manual) 0.11 K/uL (0-0); Blast Cells % (manual) 1 %; Eosinophils # (manual) 0.22 K/uL (0-0.50); Eosinophils % (manual) 2 %; Lymphocytes % (manual) 30 %; Metamyelocytes # (manual) 0.99 K/uL (0-0); Metamyelocytes % (manual) 9 %; Monocytes # (manual) 1.54 K/uL (0.11-0.59); Monocytes % (manual) 14 %; Myelocytes % (manual) 10 %; Neutrophils # (manual) 3.63 K/uL (1.40-6.50); Neutrophils % (manual) 33 %; Polychromasia 1+; Promyelocytes # (manual) 0.11 K/uL (0-0); Promyelocytes % (manual) 1 %; Spherocytes 1+; Toxic Granulation 1+
[2023-09-24] MEDS: MAGNESIUM SULFATE / D5W 1 GM/100 ML BAG IV SCH (10:24)
--- NOTE | 2023-09-24 16:02 | Hospitalist Progress Note ---
Date of Service September 24, 2023 Assessment & Plan (1) Acute renal failure: (2) Other ureteric obstruction: (3) Ureterolithiasis: Plan: 58-year-old man with history of CVA with left hemiplegia, diabetes mellitus type 2, pancreatic cancer metastasized to the liver, CAD, hypertension, Recent hospitalization from 07/28/2023 to 07/31/2023 for acute cholecystitis and required 2 PRBC during the admission, status post EUS guided GB drainage and Axios stent placement on 08/11/2023, Who presented today ER with hematuria that started yesterday Acute kidney injury Obstructive uropathy Could have ATN Pancolitis --CT ABD:Moderate right-sided hydroureteronephrosis secondary to two obstructing proximal right ureteral calculi measuring up to 10 mm.. Mild left-sided hydroureteronephrosis secondary to an obstructing 9 mm calculus within the proximal left ureter. Bilateral nephrolithiasis with urinary bladder calculi. Similar size of the pancreatic head mass with periportal lymphadenopathy. Contracted gallbladder with wall thickening and pericholecystic edema again noted. Common bile duct stent is in place. Nonspecific wall thickening of the rectosigmoid and ascending colon with adjacent inflammatory stranding. Correlate clinically to exclude a nonspecific proctocolitis. --S/P Cystoscopy, Retrograde Pyelogram with Bilateral Stent Insertion by Dr. Ortega on 09/17/2023 --Blood cultures negative to date --Urine culture negative --Stool studies negative for infection Continue IV Zosyn to complete 7-day course Appreciate nephrology, urology input Monitor volume status, renal function Cr:1.6 today Discussed with nephrology on 09/23/2023 Discontinue IV fluids Will complete antibiotic course today Acute metabolic encephalopathy Likely multifactorial: Renal failure, baclofen --CT head:No acute intracranial abnormality.Chronic right MCA infarct. Avoid sedative medications as able Renally dose meds Baclofen on hold No other obvious source of infection Mental status back to baseline Pancytopenia Neutropenia Likely due to chemotherapy Discussed with oncology Dr. Acharya on 09/21/2023: Recommends to start Neupogen Monitor CBC closely Needs follow-up with oncology on discharge Discontinue Neupogen Neutropenia much improved Thrombocytopenia Given transient epistaxis and ongoing minimal hematuria S/P platelet transfusion Monitor Oral thrush Continue nystatin Hypomagnesemia Replete electrolytes as needed Monitor (4) Anemia: Plan: Acute on chronic anemia Thrombocytopenia Positive fecal occult Possibly hematuria contributed as well reported 2 episodes of hematemesis at home Possible Upper GI bleed On 09/18/23, GI evaluated and noted currently declined EGD at the time and wished to continue PPI therapy. S/P 2 PRBC Hb 7.3 today Appreciate GI input Given risks versus benefits, EGD currently deferred Will likely benefit from EGD as outpatient Monitor CBC Monitor H&H and transfuse as needed Continue PPI (5) Pancreatic cancer: Plan: Follow-up as outpatient Palliative care consulted to address goals of care (6) Elevated LFTs: (7) Transaminitis: Plan: Likely related to metastatic pancreatic cancer on chemo. --Liver USD:Heterogeneous liver with mild nodularity of the surface contour. This suggests morphologic change of cirrhosis. There is gas throughout the gallbladder lumen which degrades assessment for gallstones. Gallbladder wall thickening is nonspecific. Trace perihepatic ascites. A common bile duct stent is in place. Monitor LFTs Avoid nephrotoxic agents as able Normal ammonia Discussed with GI on 09/22/2023 Continue to monitor (8) HTN (hypertension): Plan: Blood pressure stable Continue to hold home losartan Monitor (9) DMII (diabetes mellitus, type 2): Plan: Per , patient was on Lantus 10 units daily and metformin 500 mg twice daily. Hold home metformin. Continue insulin while hospitalized Monitor blood glucose levels (10) CAD (coronary artery disease): Plan: History of CAD. Resume aspirin, Plavix as able Continue metoprolol (11) DVT prophylaxis: Plan: SCD for now Re: Thrombocytopenia, hematuria Code Status: DNI/DNR Admission and Anticipated Discharge Date Admission Date: September 17, 2023 Subjective Patient is seen and examined at bedside Pancytopenia improving No recurrence of nosebleed Still having some diarrhea Discussed with patient's family at bedside Patient offers no new complaints Hematuria slowly improving Patient denies any chest pain, dyspnea, nausea, vomiting, abdominal pain Review of Systems Review of Systems: All systems reviewed & are unremarkable except as noted in Subjective Physical Exam Physical Exam: Physical Exam: Vitals signs as noted above General Appearance:Moderately built and nourished, no apparent distress Head: normocephalic, Atraumatic Eyes: normal inspection, EOMI Neck: supple, Trachea midline Respiratory/Chest: Normal breath sounds, CTA, No accessory muscle use Cardiovascular: S1, S2, No murmur Abdomen/GI:Soft, Non tender, Bowel sounds present Extremities/Musculoskeletal:normal inspection, no edema Neurologic/Psych:AAO, chronic left hemiplegia Skin: normal color, warm Results & Data Results & Data Vital Signs (Past 12 Hours) Vital Signs Temp Pulse Resp BP Pulse Ox O2 Del Method 09/24/23 11:10 36.4 C L 71 18 120/69 97 Room Air 09/24/23 04:44 37.1 C 86 18 110/74 95 Room Air Laboratory Results Short CBC 09/23/23 09/24/23 Range/Units 21:05 07:15 WBC 11.00 H (4.8-10.8) K/ul Hgb 7.2 L 7.3 L (14.0-18.0) g/dl Hct 21.5 L 22.0 L (42.0-52.0) % Plt Count 106 L D (130-400) K/uL BMP 09/24/23 07:15 Sodium 135 L Potassium 4.0 Chloride 108 H Carbon Dioxide 23 BUN 24 H Creatinine 1.66 H Glucose 161 H Calcium 7.9 L Liver Function 09/24/23 Range/Units 07:15 Total Bilirubin 1.8 H (0.2-1.0) mg/dl AST 127 H (13-39) U/L ALT 85 H (7-52) U/L Alkaline Phosphatase 175 H (34-104) U/L Albumin 2.4 L (3.4-5.0) gm/dl (1) Acute renal failure Acute renal failure type: unspecified Qualified Code(s): N17.9 - Acute kidney failure, unspecified (5) Pancreatic cancer Pancreatic malignancy location: unspecified Qualified Code(s): C25.9 - Malignant neoplasm of pancreas, unspecified
[2023-09-24] MEDS: PANTOprazole 40 MG TAB PO SCH (21:21)
[2023-09-25 06:14] LABS: Albumin Level 2.4 gm/dl (3.4-5.0); BUN Creatinine Ratio 13.7 (10-20); Bilirubin,Total 1.8 mg/dl (0.2-1.0); Calcium 7.9 mg/dl (8.6-10.3); Creatinine Clr Calc Pharmacy 47.4 ml/min; Est GFR (African American) 46.4 ml/min; Est GFR (Non-African American) 40.1 ml/min; Globulin 2.5 gm/dl (2.5-4.0); Magnesium 1.8 mg/dl (1.7-2.4); Potassium 3.9 mmol/L (3.5-5.1); Total Protein 4.9 gm/dl (6.0-8.3)
[2023-09-25 07:25] LABS: Hematocrit (blood only) 21.9 % (42.0-52.0); Hemoglobin 7.2 g/dl (14.0-18.0); Mean Corpuscular Hemoglobin 27.3 pg (25.0-34.0); Mean Corpuscular Hgb Conc 32.9 g/dL (32.0-36.0); Mean Platelet Volume 9.9 fL (9.4-12.4); Nucleated RBC # (auto) 1.56 K/uL (0.00-0.12); Nucleated RBC % (auto) 7.3 %; Platelet Count 111 K/uL (130-400); RDW Coefficient of Variation 16.8 % (11.5-14.5); RDW Standard Deviation 49.1 fL (36.4-46.3); Red Blood Count 2.64 M/uL (4.70-6.10); White Blood Count 21.31 K/ul (4.8-10.8)
[2023-09-25] MEDS ORDERED: SODIUM CHLORIDE 0.9% 250 ML IV PRN (07:27)
[2023-09-25 08:28] LABS: ALC (manual) 3.41 K/uL (1.2-3.4); ANC (manual) 7.88 K/uL (1.4-6.5); Basophils # (manual) 0.21 K/uL (0-0.2); Basophils % (manual) 1 %; Blast # (manual) 0.21 K/uL (0-0); Blast Cells % (manual) 1 %; Lymphocytes # (manual) 3.41 K/uL (1.2-3.4); Lymphocytes % (manual) 16 %; Metamyelocytes % (manual) 8 %; Monocytes # (manual) 4.48 K/uL (0.11-0.59); Monocytes % (manual) 21 %; Myelocytes # (manual) 1.49 K/uL (0-0); Myelocytes % (manual) 7 %; Neutrophils # (manual) 7.88 K/uL (1.40-6.50); Neutrophils % (manual) 37 %; Polychromasia 1+; Promyelocytes # (manual) 1.92 K/uL (0-0); Promyelocytes % (manual) 9 %
[2023-09-25 13:07] LABS: Hematocrit (blood only) 25.2 % (42.0-52.0); Hemoglobin 8.4 g/dl (14.0-18.0)
[2023-09-25] MEDS: CLOPIDOGREL BISULFATE 75 MG TAB PO SCH (13:52)
--- NOTE | 2023-09-25 15:19 | Hospitalist Progress Note ---
Date of Service September 25, 2023 Assessment & Plan (1) Acute renal failure: (2) Other ureteric obstruction: (3) Ureterolithiasis: Plan: 58-year-old man with history of CVA with left hemiplegia, diabetes mellitus type 2, pancreatic cancer metastasized to the liver, CAD, hypertension, Recent hospitalization from 07/28/2023 to 07/31/2023 for acute cholecystitis and required 2 PRBC during the admission, status post EUS guided GB drainage and Axios stent placement on 08/11/2023, Who presented today ER with hematuria that started yesterday Acute kidney injury Obstructive uropathy Suspect ATN Pancolitis --CT ABD:Moderate right-sided hydroureteronephrosis secondary to two obstructing proximal right ureteral calculi measuring up to 10 mm.. Mild left-sided hydroureteronephrosis secondary to an obstructing 9 mm calculus within the proximal left ureter. Bilateral nephrolithiasis with urinary bladder calculi. Similar size of the pancreatic head mass with periportal lymphadenopathy. Contracted gallbladder with wall thickening and pericholecystic edema again noted. Common bile duct stent is in place. Nonspecific wall thickening of the rectosigmoid and ascending colon with adjacent inflammatory stranding. Correlate clinically to exclude a nonspecific proctocolitis. --S/P Cystoscopy, Retrograde Pyelogram with Bilateral Stent Insertion by Dr. Ortega on 09/17/2023 --Blood cultures negative to date --Urine culture negative --Stool studies negative for infection Completed IV Zosyn 7-day course Appreciate nephrology, urology input Monitor volume status, renal function Cr:1.83 today Discussed with nephrology on 09/23/2023:Discontinue IV fluids, monitor renal function off fluids Will benefit from follow-up with nephrology on discharge Discussed with urology on 09/25/2023: Okay to resume Plavix and monitor for hematuria If hematuria worsens, will need continuous bladder irrigation Acute metabolic encephalopathy Likely multifactorial: Renal failure, baclofen --CT head:No acute intracranial abnormality.Chronic right MCA infarct. Avoid sedative medications as able Renally dose meds Baclofen on hold No other obvious source of infection Mental status back to baseline Pancytopenia Neutropenia Likely due to chemotherapy Discussed with oncology Dr. Acharya on 09/21/2023: Recommends to start Neupogen Monitor CBC closely Needs follow-up with oncology on discharge Discontinued Neupogen Neutropenia resolved Thrombocytopenia Given transient epistaxis and ongoing minimal hematuria S/P platelet transfusion Monitor Oral thrush Continue nystatin Hypomagnesemia Replete electrolytes as needed Monitor (4) Anemia: Plan: Acute on chronic anemia Thrombocytopenia Positive fecal occult Possibly hematuria contributed as well reported 2 episodes of hematemesis at home Possible Upper GI bleed On 09/18/23, GI evaluated and noted currently declined EGD at the time and wished to continue PPI therapy. S/P 3 PRBC Hb 8.4 posttransfusion Appreciate GI input Given risks versus benefits, EGD currently deferred Will likely benefit from EGD as outpatient Monitor CBC Monitor H&H and transfuse as needed Continue PPI Discussed with GI DrPhill Case on 09/25/2023: Okay to resume Plavix. If rebleeds, patient will need to stop aspirin, Plavix permanently Monitor CBC (5) Pancreatic cancer: Plan: Follow-up as outpatient Palliative care consulted to address goals of care (6) Elevated LFTs: (7) Transaminitis: Plan: Likely related to metastatic pancreatic cancer on chemo. --Liver USD:Heterogeneous liver with mild nodularity of the surface contour. This suggests morphologic change of cirrhosis. There is gas throughout the gallbladder lumen which degrades assessment for gallstones. Gallbladder wall thickening is nonspecific. Trace perihepatic ascites. A common bile duct stent is in place. Monitor LFTs Avoid nephrotoxic agents as able Normal ammonia Discussed with GI on 09/22/2023 Continue to monitor (8) HTN (hypertension): Plan: Blood pressure stable Continue to hold home losartan Monitor (9) DMII (diabetes mellitus, type 2): Plan: Per , patient was on Lantus 10 units daily and metformin 500 mg twice daily. Hold home metformin. Continue insulin while hospitalized Monitor blood glucose levels (10) CAD (coronary artery disease): Plan: History of CAD. Continue to hold aspirin Plavix resumed on 09/25/2023 Continue metoprolol (11) DVT prophylaxis: Plan: SCD for now Re: Thrombocytopenia, hematuria Code Status: DNI/DNR Admission and Anticipated Discharge Date Admission Date: September 17, 2023 Subjective Patient is seen and examined at bedside Still has some hematuria Had 1 loose BM today Offers no new complaints Discussed with patient family at bedside Discussed with GI and urology today Denies any chest pain, dyspnea, nausea, vomiting, abdominal pain Review of Systems Review of Systems: All systems reviewed & are unremarkable except as noted in Subjective Physical Exam Physical Exam: Physical Exam: Vitals signs as noted above General Appearance:Moderately built and nourished, no apparent distress Head: normocephalic, Atraumatic Eyes: normal inspection, EOMI Neck: supple, Trachea midline Respiratory/Chest: Normal breath sounds, CTA, No accessory muscle use Cardiovascular: S1, S2, No murmur Abdomen/GI:Soft, Non tender, Bowel sounds present Extremities/Musculoskeletal:normal inspection, no edema Neurologic/Psych:AAO, chronic left hemiplegia Skin: normal color, warm Results & Data Results & Data Vital Signs (Past 12 Hours) Vital Signs Temp Pulse Pulse Resp BP BP Pulse Ox 09/25/23 11:51 36.7 C 76 18 135/99 96 09/25/23 11:29 36.7 C 73 18 139/94 96 09/25/23 10:29 36.7 C 71 20 137/82 97 09/25/23 09:59 36.7 C 72 18 120/81 97 09/25/23 09:44 36.9 C 74 18 127/80 98 09/25/23 09:22 36.9 C 75 18 122/73 98 09/25/23 07:20 37.2 C 81 18 130/82 95 09/25/23 03:30 36.6 C 80 16 111/76 95 O2 Del Method 09/25/23 11:51 09/25/23 11:29 09/25/23 10:29 09/25/23 09:59 09/25/23 09:44 09/25/23 09:22 09/25/23 07:20 Room Air 09/25/23 03:30 Room Air Laboratory Results Short CBC 09/25/23 09/25/23 Range/Units 05:34 12:39 WBC 21.31 H D (4.8-10.8) K/ul Hgb 7.2 L 8.4 L (14.0-18.0) g/dl Hct 21.9 L 25.2 L (42.0-52.0) % Plt Count 111 L (130-400) K/uL BMP 09/25/23 05:34 Sodium 136 Potassium 3.9 Chloride 109 H Carbon Dioxide 23 BUN 25 H Creatinine 1.83 H Glucose 138 H Calcium 7.9 L Liver Function 09/25/23 Range/Units 05:34 Total Bilirubin 1.8 H (0.2-1.0) mg/dl AST 88 H (13-39) U/L ALT 60 H (7-52) U/L Alkaline Phosphatase 159 H (34-104) U/L Albumin 2.4 L (3.4-5.0) gm/dl (1) Acute renal failure Acute renal failure type: unspecified Qualified Code(s): N17.9 - Acute kidney failure, unspecified (5) Pancreatic cancer Pancreatic malignancy location: unspecified Qualified Code(s): C25.9 - Malignant neoplasm of pancreas, unspecified
[2023-09-25] MEDS: hydrOXYzine HCl 10 MG TAB PO STA (20:54)
[2023-09-25 21:53] LABS: Hematocrit (blood only) 25.4 % (42.0-52.0); Hemoglobin 8.5 g/dl (14.0-18.0)
[2023-09-26 07:06] LABS: Hemoglobin 8.2 g/dl (14.0-18.0); Mean Corpuscular Hemoglobin 27.4 pg (25.0-34.0); Mean Corpuscular Hgb Conc 32.8 g/dL (32.0-36.0); Mean Corpuscular Volume 83.6 fL (80.0-100.0); Mean Platelet Volume 9.6 fL (9.4-12.4); Nucleated RBC # (auto) 2.92 K/uL (0.00-0.12); Nucleated RBC % (auto) 8.6 %; Platelet Count 125 K/uL (130-400); RDW Coefficient of Variation 16.7 % (11.5-14.5); RDW Standard Deviation 48.6 fL (36.4-46.3); Red Blood Count 2.99 M/uL (4.70-6.10); White Blood Count 33.93 K/ul (4.8-10.8)
[2023-09-26 07:08] LABS: Albumin Globulin Ratio 0.9 (0.9-2); Albumin Level 2.4 gm/dl (3.4-5.0); BUN Creatinine Ratio 14.2 (10-20); Bilirubin,Total 1.5 mg/dl (0.2-1.0); Creatinine Clr Calc Pharmacy 45.7 ml/min; Est GFR (African American) 44.4 ml/min; Est GFR (Non-African American) 38.3 ml/min; Globulin 2.7 gm/dl (2.5-4.0); Magnesium 1.8 mg/dl (1.7-2.4); Potassium 3.8 mmol/L (3.5-5.1); Total Protein 5.1 gm/dl (6.0-8.3)
[2023-09-26] MEDS: LACTATED RINGER'S 1,000 ML IV ONE (10:55)
--- NOTE | 2023-09-26 15:22 | Hospitalist Progress Note ---
Date of Service September 26, 2023 Assessment & Plan (1) Acute renal failure: (2) Other ureteric obstruction: (3) Ureterolithiasis: Plan: 58-year-old man with history of CVA with left hemiplegia, diabetes mellitus type 2, pancreatic cancer metastasized to the liver, CAD, hypertension, Recent hospitalization from 07/28/2023 to 07/31/2023 for acute cholecystitis and required 2 PRBC during the admission, status post EUS guided GB drainage and Axios stent placement on 08/11/2023, Who presented today ER with hematuria that started yesterday Acute kidney injury Obstructive uropathy Suspect ATN Pancolitis --CT ABD:Moderate right-sided hydroureteronephrosis secondary to two obstructing proximal right ureteral calculi measuring up to 10 mm.. Mild left-sided hydroureteronephrosis secondary to an obstructing 9 mm calculus within the proximal left ureter. Bilateral nephrolithiasis with urinary bladder calculi. Similar size of the pancreatic head mass with periportal lymphadenopathy. Contracted gallbladder with wall thickening and pericholecystic edema again noted. Common bile duct stent is in place. Nonspecific wall thickening of the rectosigmoid and ascending colon with adjacent inflammatory stranding. Correlate clinically to exclude a nonspecific proctocolitis. --S/P Cystoscopy, Retrograde Pyelogram with Bilateral Stent Insertion by Dr. Ortega on 09/17/2023 --Blood cultures negative to date --Urine culture negative --Stool studies negative for infection Completed IV Zosyn 7-day course Appreciate nephrology, urology input Monitor volume status, renal function Cr:1.9 today Discussed with nephrology on 09/23/2023:Discontinue IV fluids, monitor renal function off fluids Discussed with urology on 09/25/2023: Okay to resume Plavix and monitor for hematuria If hematuria worsens, will need continuous bladder irrigation Given slowly worsening creatinine levels, will give on gentle IV fluids Needs follow-up with nephrology, urology on discharge Acute metabolic encephalopathy Likely multifactorial: Renal failure, baclofen --CT head:No acute intracranial abnormality.Chronic right MCA infarct. Avoid sedative medications as able Renally dose meds Baclofen on hold No other obvious source of infection Mental status back to baseline Pancytopenia Neutropenia--resolved Likely due to chemotherapy Discussed with oncology Dr. Acharya on 09/21/2023: Recommends to start Neupogen Needs follow-up with oncology on discharge Discontinued Neupogen after 2 doses Neutropenia resolved Elevated leukocytosis secondary to Neupogen Monitor CBC Thrombocytopenia Given transient epistaxis and ongoing minimal hematuria S/P platelet transfusion Monitor Oral thrush Continue nystatin Hypomagnesemia Replete electrolytes as needed Monitor (4) Anemia: Plan: Acute on chronic anemia Thrombocytopenia Positive fecal occult Possibly hematuria contributed as well reported 2 episodes of hematemesis at home Possible Upper GI bleed On 09/18/23, GI evaluated and noted currently declined EGD at the time and wished to continue PPI therapy. S/P 3 PRBC Hb 8.2 today Appreciate GI input Given risks versus benefits, EGD currently deferred Will likely benefit from EGD as outpatient Monitor CBC Monitor H&H and transfuse as needed Continue PPI Discussed with GI Case on 09/25/2023: Okay to resume Plavix. If rebleeds, patient will need to stop aspirin, Plavix permanently Monitor CBC (5) Pancreatic cancer: Plan: Follow-up as outpatient Palliative care consulted to address goals of care (6) Elevated LFTs: (7) Transaminitis: Plan: Likely related to metastatic pancreatic cancer on chemo. --Liver USD:Heterogeneous liver with mild nodularity of the surface contour. This suggests morphologic change of cirrhosis. There is gas throughout the gallbladder lumen which degrades assessment for gallstones. Gallbladder wall thickening is nonspecific. Trace perihepatic ascites. A common bile duct stent is in place. Monitor LFTs Avoid nephrotoxic agents as able Normal ammonia Discussed with GI on 09/22/2023 Continue to monitor (8) HTN (hypertension): Plan: Blood pressure stable Continue to hold home losartan Monitor (9) DMII (diabetes mellitus, type 2): Plan: Per , patient was on Lantus 10 units daily and metformin 500 mg twice daily. Hold home metformin. Continue insulin while hospitalized Monitor blood glucose levels (10) CAD (coronary artery disease): Plan: History of CAD. Continue to hold aspirin Plavix resumed on 09/25/2023 Continue metoprolol (11) DVT prophylaxis: Plan: SCD for now Re: Thrombocytopenia, hematuria Code Status: DNI/DNR Disposition Patient and patient's refuses rehab placement Case management to help with discharge planning Admission and Anticipated Discharge Date Admission Date: September 17, 2023 Subjective Patient is seen and examined at bedside Diarrhea seem to be resolved Renal function slowly worsening Patient offers no new complaints today Family at bedside No recurrence of bleeding issues currently Hemoglobin stable after resuming Plavix No significant hematuria Denies any chest pain, dyspnea, nausea, vomiting, abdominal pain Noted elevated leukocytosis, afebrile Review of Systems Review of Systems: All systems reviewed & are unremarkable except as noted in Subjective Physical Exam Physical Exam: Physical Exam: Vitals signs as noted above General Appearance:Moderately built and nourished, no apparent distress Head: normocephalic, Atraumatic Eyes: normal inspection, EOMI Neck: supple, Trachea midline Respiratory/Chest: Normal breath sounds, CTA, No accessory muscle use Cardiovascular: S1, S2, No murmur Abdomen/GI:Soft, Non tender, Bowel sounds present Extremities/Musculoskeletal:normal inspection, no edema Neurologic/Psych:AAO, chronic left hemiplegia Skin: normal color, warm Results & Data Results & Data Vital Signs (Past 12 Hours) Vital Signs Temp Pulse Resp BP Pulse Ox O2 Del Method 09/26/23 15:06 36.8 C 80 18 125/85 92 Room Air 09/26/23 11:33 36.8 C 78 19 115/76 97 Room Air 09/26/23 07:29 36.8 C 82 18 131/77 97 Room Air Laboratory Results Short CBC 09/25/23 09/26/23 Range/Units 20:49 06:09 WBC 33.93 H* (4.8-10.8) K/ul Hgb 8.5 L 8.2 L (14.0-18.0) g/dl Hct 25.4 L 25.0 L (42.0-52.0) % Plt Count 125 L (130-400) K/uL BMP 09/26/23 06:09 Sodium 139 Potassium 3.8 Chloride 110 H Carbon Dioxide 22 BUN 27 H Creatinine 1.90 H Glucose 145 H Calcium 8.0 L Liver Function 09/26/23 Range/Units 06:09 Total Bilirubin 1.5 H (0.2-1.0) mg/dl AST 75 H (13-39) U/L ALT 45 (7-52) U/L Alkaline Phosphatase 172 H (34-104) U/L Albumin 2.4 L (3.4-5.0) gm/dl (1) Acute renal failure Acute renal failure type: unspecified Qualified Code(s): N17.9 - Acute kidney failure, unspecified (5) Pancreatic cancer Pancreatic malignancy location: unspecified Qualified Code(s): C25.9 - Malignant neoplasm of pancreas, unspecified
[2023-09-26] MEDS: ACETAMINOPHEN 500 MG TAB PO PRN (21:30)
[2023-09-27] MEDS: HEPARIN 100 UNIT/ML 5ML FLUSH FLUSH STA (06:09)
[2023-09-27 06:27] LABS: Hemoglobin 8.3 g/dl (14.0-18.0); Mean Corpuscular Hemoglobin 27.9 pg (25.0-34.0); Mean Corpuscular Hgb Conc 33.2 g/dL (32.0-36.0); Mean Corpuscular Volume 83.9 fL (80.0-100.0); Mean Platelet Volume 10.5 fL (9.4-12.4); Nucleated RBC # (auto) 2.76 K/uL (0.00-0.12); Nucleated RBC % (auto) 6.4 %; Platelet Count 148 K/uL (130-400); RDW Coefficient of Variation 17.6 % (11.5-14.5); RDW Standard Deviation 49.7 fL (36.4-46.3); Red Blood Count 2.98 M/uL (4.70-6.10); White Blood Count 43.27 K/ul (4.8-10.8)
[2023-09-27 06:33] LABS: Calcium 7.9 mg/dl (8.6-10.3); Creatinine Clr Calc Pharmacy 56.7 ml/min; Est GFR (African American) 57.7 ml/min; Est GFR (Non-African American) 49.7 ml/min; Magnesium 1.6 mg/dl (1.7-2.4); Potassium 3.6 mmol/L (3.5-5.1)
--- NOTE | 2023-09-27 17:05 | Hospitalist Progress Note ---
Date of Service September 27, 2023 Assessment & Plan (1) Acute renal failure: (2) Other ureteric obstruction: (3) Ureterolithiasis: Plan: 58-year-old man with history of CVA with left hemiplegia, diabetes mellitus type 2, pancreatic cancer metastasized to the liver, CAD, hypertension, Recent hospitalization from 07/28/2023 to 07/31/2023 for acute cholecystitis and required 2 PRBC during the admission, status post EUS guided GB drainage and Axios stent placement on 08/11/2023, Who presented today ER with hematuria that started yesterday Acute kidney injury Obstructive uropathy Suspect ATN Pancolitis --CT ABD:Moderate right-sided hydroureteronephrosis secondary to two obstructing proximal right ureteral calculi measuring up to 10 mm.. Mild left-sided hydroureteronephrosis secondary to an obstructing 9 mm calculus within the proximal left ureter. Bilateral nephrolithiasis with urinary bladder calculi. Similar size of the pancreatic head mass with periportal lymphadenopathy. Contracted gallbladder with wall thickening and pericholecystic edema again noted. Common bile duct stent is in place. Nonspecific wall thickening of the rectosigmoid and ascending colon with adjacent inflammatory stranding. Correlate clinically to exclude a nonspecific proctocolitis. --S/P Cystoscopy, Retrograde Pyelogram with Bilateral Stent Insertion by Dr. Ortega on 09/17/2023 --Blood cultures negative to date --Urine culture negative --Stool studies negative for infection Completed IV Zosyn 7-day course Appreciate nephrology, urology input and recommendation Monitor volume status, renal function Discussed with nephrology on 09/23/2023:Discontinue IV fluids, monitor renal function off fluids Discussed with urology on 09/25/2023: Okay to resume Plavix and monitor for hematuria If hematuria worsens, will need continuous bladder irrigation Given slowly worsening creatinine levels, will give on gentle IV fluids Needs follow-up with nephrology, urology on discharge Creatinine is slightly better at 1.53 as on 09/27/2023 Likely to discharge tomorrow Acute metabolic encephalopathy Multifactorial: Renal failure, baclofen --CT head:No acute intracranial abnormality.Chronic right MCA infarct. Avoid sedative medications as able Renally dose meds Baclofen on hold No other obvious source of infection Mental status back to baseline In couple but he seems to be cleared Pancytopenia Neutropenia--resolved Likely due to chemotherapy Discussed with oncology Dr. Acharya on 09/21/2023: Recommends to start Neupogen Needs follow-up with oncology on discharge Discontinued Neupogen after 2 doses Neutropenia resolved Elevated leukocytosis secondary to Neupogen CBC has been increased to 43,000 Will repeat CBC tomorrow Thrombocytopenia Given transient epistaxis and ongoing minimal hematuria S/P platelet transfusion Monitor-platelet count remains at 148 Oral thrush Continue nystatin Hypomagnesemia Replete electrolytes as needed Monitor (4) Anemia: Plan: Acute on chronic anemia Thrombocytopenia Positive fecal occult Possibly hematuria contributed as well reported 2 episodes of hematemesis at home Possible Upper GI bleed On 09/18/23, GI evaluated and noted currently declined EGD at the time and wished to continue PPI therapy. S/P 3 PRBC Hb 8.2 today Appreciate GI input Given risks versus benefits, EGD currently deferred Will likely benefit from EGD as outpatient Monitor CBC Monitor H&H and transfuse as needed Continue PPI Discussed with GI Dr. Hernández on 09/25/2023: Okay to resume Plavix. If rebleeds, patient will need to stop aspirin, Plavix permanently Monitor CBC--hemoglobin remained stable at 8.3 (5) Pancreatic cancer: Plan: Follow-up as outpatient Palliative care consulted to address goals of care (6) Elevated LFTs: (7) Transaminitis: Plan: Likely related to metastatic pancreatic cancer on chemo. --Liver USD:Heterogeneous liver with mild nodularity of the surface contour. This suggests morphologic change of cirrhosis. There is gas throughout the gallbladder lumen which degrades assessment for gallstones. Gallbladder wall thickening is nonspecific. Trace perihepatic ascites. A common bile duct stent is in place. Monitor LFTs Avoid nephrotoxic agents as able Normal ammonia Discussed with GI on 09/22/2023 Continue to monitor (8) HTN (hypertension): Plan: Blood pressure stable Continue to hold home losartan Monitor (9) DMII (diabetes mellitus, type 2): Plan: Per , patient was on Lantus 10 units daily and metformin 500 mg twice daily. Hold home metformin. Continue insulin while hospitalized Monitor blood glucose levels (10) CAD (coronary artery disease): Plan: History of CAD. Continue to hold aspirin Plavix resumed on 09/25/2023 Continue metoprolol (11) DVT prophylaxis: Plan: SCD for now Re: Thrombocytopenia, hematuria Code Status: DNI/DNR Disposition Patient and patient's refuses rehab placement Case management to help with discharge planning Likely discharge tomorrow Admission and Anticipated Discharge Date Admission Date: September 17, 2023 Subjective 09/27/2023 The patient was seen and examined in medical floor He remains weak and lethargic and still nauseous Wants to take another day before he can be discharged Denies any other significant symptom Review of Systems Review of Systems: All systems reviewed and are unremarkable except as noted below Physical Exam Physical Exam: Sitting on a chair without any acute distress Constitutional: + ill appearing and average body habitus Eyes: PERRL, conjunctivae normal, anicteric sclerae ENMT: external ear and nose normal, oropharynx normal Neck: trachea midline, no thyromegaly Respiratory: + respiratory distress Auscultation: lungs clear to auscultation bilaterally Cardiovascular: Rate/Rhythm: regular rate and regular rhythm; not tachycardic Heart Sounds: normal S1, normal S2 and + murmur Extremities: no edema Gastrointestinal (Abdomen): Inspection/Auscultation: normal bowel sounds; abdomen not distended Percussion/Palpation: abdomen soft; abdomen nontender Musculoskeletal: No acute arthritis involving any of the joint Neurologic: normal touch/pain/proprioception and moves all extremities; no focal motor deficits Lymphatic: no cervical or axillary lymphadenopathy Results & Data Results & Data Vital Signs (Past 12 Hours) Vital Signs Temp Pulse Resp BP Pulse Ox O2 Del Method 09/27/23 14:38 36.4 C L 76 18 138/75 95 Room Air 09/27/23 07:14 36.8 C 81 16 150/78 H 92 Room Air Laboratory Results Short CBC 09/27/23 Range/Units 05:19 WBC 43.27 H* (4.8-10.8) K/ul Hgb 8.3 L (14.0-18.0) g/dl Hct 25.0 L (42.0-52.0) % Plt Count 148 (130-400) K/uL BMP 09/27/23 05:19 Sodium 138 Potassium 3.6 Chloride 110 H Carbon Dioxide 21 BUN 23 Creatinine 1.53 H D Glucose 125 H Calcium 7.9 L Medications Administered Current Inpatient Medications Acetaminophen (Acetaminophen 500 Mg Tab) 500 mg PO Q6H PRN PRN Reason: fever/pain Stop: 10/26/23 20:49 Last Admin: 09/27/23 16:20 Dose: 500 mg Clopidogrel Bisulfate (Clopidogrel Bisulfate 75 Mg Tab) 75 mg PO QAM [facility] Stop: 10/25/23 12:44 Last Admin: 09/27/23 08:29 Dose: 75 mg Dextrose (Dextrose 50% 50 Ml Syringe) 25 - 50 ml IV UD PRN; Protocol PRN Reason: Hypoglycemia Protocol Stop: 10/17/23 21:09 Fluoxetine HCl (Fluoxetine Hcl 20 Mg Cap) 40 mg PO DAILY KAMRAN Stop: 10/18/23 08:59 Last Admin: 09/27/23 08:29 Dose: 40 mg Folic Acid (Folic Acid 1 Mg Tab) 1 mg PO DAILY KAMRAN Stop: 10/18/23 08:59 Last Admin: 09/27/23 08:30 Dose: 1 mg Glucagon (Glucagon For Inj 1 Mg Vial) 1 mg SQ UD PRN; Protocol PRN Reason: Hypoglycemia Protocol Stop: 10/17/23 21:09 Glucose (Glucose 10 Tab/Tube) 4 - 8 tab PO UD PRN; Protocol PRN Reason: Hypoglycemia Treatment Stop: 10/17/23 21:09 Glucose (Glucose 40% Gel 15 Gm Tube) 15 - 30 gm PO UD PRN; Protocol PRN Reason: Hypoglycemia Protocol Stop: 10/17/23 21:09 Insulin Aspart (Insulin Aspart Per Unit Charge) 0 units SC ACHS [facility] Stop: 10/20/23 16:29 Last Admin: 09/27/23 12:27 Dose: 2 units Labetalol HCl (Labetalol Hcl Iv 5 Mg/Ml 20ml) 10 mg IV Q6H PRN PRN Reason: Hypertension SBP>180orDBP>100 Stop: 10/21/23 09:43 Lactobacillus Acidophilus (Advanced Probiotic 625 Mg Capsule) 1,250 mg PO DAILY [facility] Stop: 10/20/23 16:29 Last Admin: 09/27/23 08:30 Dose: 1,250 mg Loperamide HCl (Loperamide Hcl 2 Mg Cap) 2 mg PO Q6H PRN PRN Reason: Diarrhea Stop: 10/20/23 16:07 Last Admin: 09/25/23 14:27 Dose: 2 mg Magnesium Chloride (Magnesium Chloride W/Calcium 64mg Delayed Rel Tab) 64 mg PO BID [facility] Stop: 10/22/23 20:59 Last Admin: 09/27/23 12:27 Dose: 64 mg Metoprolol Tartrate (Metoprolol Tartrate 50 Mg Tab) 50 mg PO BID [facility] Stop: 10/21/23 20:59 Last Admin: 09/27/23 08:32 Dose: 50 mg Miscellaneous (Carbohydrates For Hypoglycemia ) 15 - 30 gm PO UD PRN PRN Reason: Hypoglycemia Protocol Stop: 10/17/23 21:09 Nystatin (Nystatin Susp 500,000 U/5 Ml Udc) 5 ml PO QID [facility] Stop: 09/30/23 16:59 Last Admin: 09/27/23 12:27 Dose: 5 ml Ondansetron HCl (Ondansetron Inj 2 Mg/Ml 2 Ml Vial) 4 mg IV Q6H PRN PRN Reason: Nausea And Vomiting Stop: 10/17/23 21:09 Last Admin: 09/21/23 16:37 Dose: 4 mg Oxymetazoline HCl (Oxymetazoline 0.05% 30 Ml Btl) 1 sprays DULCE Q8H PRN PRN Reason: Nose bleed Stop: 10/23/23 11:59 Pantoprazole Sodium (Pantoprazole 40 Mg Tab) 40 mg PO BID [facility] Stop: 10/24/23 20:59 Last Admin: 09/27/23 08:33 Dose: 40 mg Polyethylene Glycol (Polyethylene (Miralax) 17 Gm Pack) 17 gm PO DAILY PRN PRN Reason: constipation Stop: 10/17/23 21:09 Thiamine HCl (Thiamine Hcl 100 Mg Tab) 100 mg PO DAILY [facility] Stop: 10/18/23 08:59 Last Admin: 09/27/23 08:33 Dose: 100 mg (1) Acute renal failure Acute renal failure type: unspecified Qualified Code(s): N17.9 - Acute kidney failure, unspecified (5) Pancreatic cancer Pancreatic malignancy location: unspecified Qualified Code(s): C25.9 - Malignant neoplasm of pancreas, unspecified
[2023-09-28 06:05] LABS: Hematocrit (blood only) 25.4 % (42.0-52.0); Hemoglobin 8.3 g/dl (14.0-18.0); Mean Corpuscular Hemoglobin 27.9 pg (25.0-34.0); Mean Corpuscular Hgb Conc 32.7 g/dL (32.0-36.0); Mean Corpuscular Volume 85.5 fL (80.0-100.0); Mean Platelet Volume 9.7 fL (9.4-12.4); Nucleated RBC # (auto) 1.82 K/uL (0.00-0.12); Nucleated RBC % (auto) 4.4 %; Platelet Count 166 K/uL (130-400); RDW Standard Deviation 50.9 fL (36.4-46.3); Red Blood Count 2.97 M/uL (4.70-6.10); White Blood Count 41.45 K/ul (4.8-10.8)
[2023-09-28 06:16] LABS: BUN Creatinine Ratio 14.5 (10-20); Calcium 7.6 mg/dl (8.6-10.3); Creatinine Clr Calc Pharmacy 62.9 ml/min; Est GFR (African American) 65.3 ml/min; Est GFR (Non-African American) 56.4 ml/min; Magnesium 1.6 mg/dl (1.7-2.4); Phosphorus 2.8 mg/dl (2.5-4.9); Potassium 3.7 mmol/L (3.5-5.1)
[2023-09-28 07:28] LABS: ANC (manual) 20.73 K/uL (1.4-6.5); Anisocytosis Present; Basophils # (manual) 0.41 K/uL (0-0.2); Basophils % (manual) 1 %; Blast # (manual) 0.41 K/uL (0-0); Blast Cells % (manual) 1 %; Eosinophils # (manual) 0.41 K/uL (0-0.50); Eosinophils % (manual) 1 %; Lymphocytes % (manual) 14 %; Metamyelocytes # (manual) 4.56 K/uL (0-0); Metamyelocytes % (manual) 11 %; Monocytes # (manual) 5.39 K/uL (0.11-0.59); Monocytes % (manual) 13 %; Myelocytes # (manual) 2.49 K/uL (0-0); Myelocytes % (manual) 6 %; Neutrophils # (manual) 20.73 K/uL (1.40-6.50); Neutrophils % (manual) 50 %; Polychromasia 2+; Promyelocytes # (manual) 1.24 K/uL (0-0); Promyelocytes % (manual) 3 %
--- NOTE | 2023-09-28 11:39 | Hospitalist Progress Note ---
Date of Service September 28, 2023 Assessment & Plan (1) Acute renal failure: (2) Other ureteric obstruction: (3) Ureterolithiasis: Plan: 58-year-old man with history of CVA with left hemiplegia, diabetes mellitus type 2, pancreatic cancer metastasized to the liver, CAD, hypertension, Recent hospitalization from 07/28/2023 to 07/31/2023 for acute cholecystitis and required 2 PRBC during the admission, status post EUS guided GB drainage and Axios stent placement on 08/11/2023, Who presented today ER with hematuria that started yesterday Acute kidney injury Obstructive uropathy Suspect ATN Pancolitis --CT ABD:Moderate right-sided hydroureteronephrosis secondary to two obstructing proximal right ureteral calculi measuring up to 10 mm.. Mild left-sided hydroureteronephrosis secondary to an obstructing 9 mm calculus within the proximal left ureter. Bilateral nephrolithiasis with urinary bladder calculi. Similar size of the pancreatic head mass with periportal lymphadenopathy. Contracted gallbladder with wall thickening and pericholecystic edema again noted. Common bile duct stent is in place. Nonspecific wall thickening of the rectosigmoid and ascending colon with adjacent inflammatory stranding. Correlate clinically to exclude a nonspecific proctocolitis. --S/P Cystoscopy, Retrograde Pyelogram with Bilateral Stent Insertion by Dr. Ortega on 09/17/2023 --Blood cultures negative to date --Urine culture negative --Stool studies negative for infection Completed IV Zosyn 7-day course Appreciate nephrology, urology input and recommendation Monitor volume status, renal function Discussed with nephrology on 09/23/2023:Discontinue IV fluids, monitor renal function off fluids Discussed with urology on 09/25/2023: Okay to resume Plavix and monitor for hematuria If hematuria worsens, will need continuous bladder irrigation Given slowly worsening creatinine levels, will give on gentle IV fluids Needs follow-up with nephrology, urology on discharge Creatinine is slightly better at 1.53 as on 09/27/2023 Creatinine is back to normal at 1.38 as of 09/28/2023 Acute metabolic encephalopathy Multifactorial: Renal failure, baclofen --CT head:No acute intracranial abnormality.Chronic right MCA infarct. Avoid sedative medications as able Renally dose meds Baclofen on hold No other obvious source of infection Mental status back to baseline In couple but he seems to be cleared Pancytopenia Neutropenia--resolved Likely due to chemotherapy Discussed with oncology Dr. Acharya on 09/21/2023: Recommends to start Neupogen Needs follow-up with oncology on discharge Discontinued Neupogen after 2 doses Neutropenia resolved Elevated leukocytosis secondary to Neupogen CBC has been increased to 43,000 White cell count has been coming down Thrombocytopenia Given transient epistaxis and ongoing minimal hematuria S/P platelet transfusion Monitor-platelet count remains at 148 Oral thrush Continue nystatin Hypomagnesemia Replete electrolytes as needed Monitor (4) Anemia: Plan: Acute on chronic anemia Thrombocytopenia Positive fecal occult Possibly hematuria contributed as well reported 2 episodes of hematemesis at home Possible Upper GI bleed On 09/18/23, GI evaluated and noted currently declined EGD at the time and wished to continue PPI therapy. S/P 3 PRBC Hb 8.2 today Appreciate GI input Given risks versus benefits, EGD currently deferred Will likely benefit from EGD as outpatient Monitor CBC Monitor H&H and transfuse as needed Continue PPI Discussed with GI Dr. Hernádnez on 09/25/2023: Okay to resume Plavix. If rebleeds, patient will need to stop aspirin, Plavix permanently Hemoglobin remains stable at 8.3 for the last 3 days (5) Pancreatic cancer: Plan: Follow-up as outpatient Palliative care consulted to address goals of care (6) Elevated LFTs: (7) Transaminitis: Plan: Likely related to metastatic pancreatic cancer on chemo. --Liver USD:Heterogeneous liver with mild nodularity of the surface contour. This suggests morphologic change of cirrhosis. There is gas throughout the gallbladder lumen which degrades assessment for gallstones. Gallbladder wall thickening is nonspecific. Trace perihepatic ascites. A common bile duct stent is in place. Monitor LFTs Avoid nephrotoxic agents as able Normal ammonia Discussed with GI on 09/22/2023 Continue to monitor (8) HTN (hypertension): Plan: Blood pressure stable Continue to hold home losartan Monitor (9) DMII (diabetes mellitus, type 2): Plan: Per , patient was on Lantus 10 units daily and metformin 500 mg twice daily. Hold home metformin. Continue insulin while hospitalized Monitor blood glucose levels (10) CAD (coronary artery disease): Plan: History of CAD. Continue to hold aspirin Plavix resumed on 09/25/2023 Continue metoprolol (11) DVT prophylaxis: Plan: SCD for now Re: Thrombocytopenia, hematuria Code Status: DNI/DNR Disposition Patient and patient's refuses rehab placement Case management to help with discharge planning Discharge today Admission and Anticipated Discharge Date Admission Date: September 17, 2023 Subjective 09/27/2023 The patient was seen and examined in medical floor He remains weak and lethargic and still nauseous Wants to take another day before he can be discharged Denies any other significant symptom 09/28/2023 The patient was seen and examined in medical floor in presence of the He has been feeling much better today and wants to go home Denies any significant symptoms and does not have any more hematuria Has been tolerating diet and does not have any nausea and or vomiting bowel is moving Will be discharged home this afternoon Review of Systems Review of Systems: All systems reviewed and are unremarkable except as noted below Physical Exam Physical Exam: Sitting on a chair without any acute distress Constitutional: + ill appearing and average body habitus Eyes: PERRL, conjunctivae normal, anicteric sclerae ENMT: external ear and nose normal, oropharynx normal Neck: trachea midline, no thyromegaly Respiratory: + respiratory distress Auscultation: lungs clear to auscultation bilaterally Cardiovascular: Rate/Rhythm: regular rate and regular rhythm; not tachycardic Heart Sounds: normal S1, normal S2 and + murmur Extremities: no edema Gastrointestinal (Abdomen): Inspection/Auscultation: normal bowel sounds; abdomen not distended Percussion/Palpation: abdomen soft; abdomen nontender Musculoskeletal: No acute arthritis involving any of the joints Neurologic: normal touch/pain/proprioception and moves all extremities; no focal motor deficits Lymphatic: no cervical or axillary lymphadenopathy Results & Data Results & Data Vital Signs (Past 12 Hours) Vital Signs Temp Pulse Resp BP Pulse Ox O2 Del Method 09/28/23 08:11 Room Air 09/28/23 07:08 36.2 C L 81 16 129/78 96 Room Air Laboratory Results Short CBC 09/28/23 Range/Units 05:31 WBC 41.45 H* (4.8-10.8) K/ul Hgb 8.3 L (14.0-18.0) g/dl Hct 25.4 L (42.0-52.0) % Plt Count 166 (130-400) K/uL BMP 09/28/23 05:31 Sodium 136 Potassium 3.7 Chloride 109 H Carbon Dioxide 22 BUN 20 Creatinine 1.38 Glucose 149 H Calcium 7.6 L Medications Administered Current Inpatient Medications Acetaminophen (Acetaminophen 500 Mg Tab) 500 mg PO Q6H PRN PRN Reason: fever/pain Stop: 10/26/23 20:49 Last Admin: 09/28/23 08:31 Dose: 500 mg Clopidogrel Bisulfate (Clopidogrel Bisulfate 75 Mg Tab) 75 mg PO QAM [facility] Stop: 10/25/23 12:44 Last Admin: 09/28/23 08:33 Dose: 75 mg Dextrose (Dextrose 50% 50 Ml Syringe) 25 - 50 ml IV UD PRN; Protocol PRN Reason: Hypoglycemia Protocol Stop: 10/17/23 21:09 Fluoxetine HCl (Fluoxetine Hcl 20 Mg Cap) 40 mg PO DAILY [facility] Stop: 10/18/23 08:59 Last Admin: 09/28/23 08:33 Dose: 40 mg Folic Acid (Folic Acid 1 Mg Tab) 1 mg PO DAILY [facility] Stop: 10/18/23 08:59 Last Admin: 09/28/23 08:34 Dose: 1 mg Glucagon (Glucagon For Inj 1 Mg Vial) 1 mg SQ UD PRN; Protocol PRN Reason: Hypoglycemia Protocol Stop: 10/17/23 21:09 Glucose (Glucose 10 Tab/Tube) 4 - 8 tab PO UD PRN; Protocol PRN Reason: Hypoglycemia Treatment Stop: 10/17/23 21:09 Glucose (Glucose 40% Gel 15 Gm Tube) 15 - 30 gm PO UD PRN; Protocol PRN Reason: Hypoglycemia Protocol Stop: 10/17/23 21:09 Insulin Aspart (Insulin Aspart Per Unit Charge) 0 units SC ACHS [facility] Stop: 10/20/23 16:29 Last Admin: 09/28/23 08:31 Dose: 1 units Labetalol HCl (Labetalol Hcl Iv 5 Mg/Ml 20ml) 10 mg IV Q6H PRN PRN Reason: Hypertension SBP>180orDBP>100 Stop: 10/21/23 09:43 Lactobacillus Acidophilus (Advanced Probiotic 625 Mg Capsule) 1,250 mg PO DAILY [facility] Stop: 10/20/23 16:29 Last Admin: 09/28/23 08:34 Dose: 1,250 mg Loperamide HCl (Loperamide Hcl 2 Mg Cap) 2 mg PO Q6H PRN PRN Reason: Diarrhea Stop: 10/20/23 16:07 Last Admin: 09/25/23 14:27 Dose: 2 mg Magnesium Chloride (Magnesium Chloride W/Calcium 64mg Delayed Rel Tab) 64 mg PO BID [facility] Stop: 10/22/23 20:59 Last Admin: 09/28/23 08:34 Dose: 64 mg Metoprolol Tartrate (Metoprolol Tartrate 50 Mg Tab) 50 mg PO BID [facility] Stop: 10/21/23 20:59 Last Admin: 09/28/23 08:35 Dose: 50 mg Miscellaneous (Carbohydrates For Hypoglycemia ) 15 - 30 gm PO UD PRN PRN Reason: Hypoglycemia Protocol Stop: 10/17/23 21:09 Nystatin (Nystatin Susp 500,000 U/5 Ml Udc) 5 ml PO QID [facility] Stop: 09/30/23 16:59 Last Admin: 09/28/23 08:35 Dose: 5 ml Ondansetron HCl (Ondansetron Inj 2 Mg/Ml 2 Ml Vial) 4 mg IV Q6H PRN PRN Reason: Nausea And Vomiting Stop: 10/17/23 21:09 Last Admin: 09/21/23 16:37 Dose: 4 mg Oxymetazoline HCl (Oxymetazoline 0.05% 30 Ml Btl) 1 sprays DULCE Q8H PRN PRN Reason: Nose bleed Stop: 10/23/23 11:59 Pantoprazole Sodium (Pantoprazole 40 Mg Tab) 40 mg PO BID [facility] Stop: 10/24/23 20:59 Last Admin: 09/28/23 08:36 Dose: 40 mg Polyethylene Glycol (Polyethylene (Miralax) 17 Gm Pack) 17 gm PO DAILY PRN PRN Reason: constipation Stop: 10/17/23 21:09 Thiamine HCl (Thiamine Hcl 100 Mg Tab) 100 mg PO DAILY [facility] Stop: 10/18/23 08:59 Last Admin: 09/28/23 08:36 Dose: 100 mg (1) Acute renal failure Acute renal failure type: unspecified Qualified Code(s): N17.9 - Acute kidney failure, unspecified (5) Pancreatic cancer Pancreatic malignancy location: unspecified Qualified Code(s): C25.9 - Malignant neoplasm of pancreas, unspecified
--- NOTE | 2023-09-29 08:33 | Discharge Summary ---
Date of Service September 28, 2023 Admission HPI Per Admitting Provider 58-year-old man with history of CVA with left hemiplegia, diabetes mellitus type 2, pancreatic cancer metastasized to the liver, CAD, hypertension, Recent hospitalization from 07/28/2023 to 07/31/2023 for acute cholecystitis and required 2 PRBC during the admission, status post EUS guided GB drainage and Axios stent placement on 08/11/2023, Who presented today ER with hematuria that started yesterday. Patient though awake and oriented to person/place, is lethargic and unable to provide much history but able to answer yes or no to simple questions. History obtained from and mother who are at bedside. Patient had chemo on 09/15/2023 [paclitaxel, gemcitabine]. Patient started having hematuria yesterday. According to he also had some abdominal pain and took 2.5 mg of oxycodone as needed last night. He also had 2 episodes of vomiting since yesterday. noted that vomit was small volume but mostly blood Mother noted that he has been more lethargic this morning and since coming to the ER No fevers, chills. Patient denies chest pain, cough, shortness of breath. Patient has chronic left sided hemiplegia. Patient denies abdominal or flank pain currently. No diarrhea, melena or hematochezia. Denies smoking, alcohol or illicit drug use. Admission Exam Per Admitting Provider Constitutional: + well hydrated and + lethargic; no acut e distress Eyes: PERRL, conjunctivae normal, anicteric sclerae ENMT: external ear and nose normal, oropharynx normal Respiratory: normal respiratory effort, lungs clear to auscultation Cardiovascular: Rate/Rhythm: regular rate and regular rhythm S1 S2 Gastrointestinal (Abdomen): normal bowel sounds, soft, nontender, no hepatosplenomegaly Musculoskeletal: No pedal edema Neurologic: Lethargic, sluggish response Follows simple commands Left hemiplegia Psychiatric: Oriented to person and place only, sluggish response Principal Diagnosis Acute kidney injury, obstructive uropathy status post bilateral ureteric stent placement, pancreatic cancer, pancytopenia Discharge Exam Sitting on a chair without any acute distress Constitutional + ill appearing and average body habitus Eyes PERRL, conjunctivae normal, anicteric sclerae ENMT external ear and nose normal, oropharynx normal Neck trachea midline, no thyromegaly Respiratory + respiratory distress Auscultation: lungs clear to auscultation bilaterally Cardiovascular Rate/Rhythm: regular rate and regular rhythm; not tachycardic Heart Sounds: normal S1, normal S2 and + murmur Extremities: no edema Gastrointestinal (Abdomen) Inspection/Auscultation: normal bowel sounds; abdomen not distended Percussion/Palpation: abdomen soft; abdomen nontender Neurologic normal touch/pain/proprioception and moves all extremities; no focal motor deficits Lymphatic no cervical or axillary lymphadenopathy Discharge Data Allergies Allergy/AdvReac Type Severity Reaction Status Date / Time No Known Allergies Allergy Verified 07/27/23 02:56 Consultations 09/17/23 17:52 ED Decision to Admit Stat 09/17/23 18:28 Consult Urology Stat 09/17/23 19:23 Consult Gastroenterology Routine 09/19/23 10:06 Consult Nephrology Routine 09/21/23 15:30 Consult Palliative Care Routine Procedures Performed Operation Date: 09/20/23 16:30 <No data on this case meets the specified criteria> Ordered Studies 09/17/23 15:55 CT abd pelvis wo con Stat CT head/brain wo con Stat 09/17/23 20:34 FL KUB Routine 09/22/23 10:51 US liver Routine Hospital Course (1) Acute renal failure: (2) Other ureteric obstruction: (3) Ureterolithiasis: 58-year-old man with history of CVA with left hemiplegia, diabetes mellitus type 2, pancreatic cancer metastasized to the liver, CAD, hypertension, Recent hospitalization from 07/28/2023 to 07/31/2023 for acute cholecystitis and required 2 PRBC during the admission, status post EUS guided GB drainage and Axios stent placement on 08/11/2023, Who presented today ER with hematuria that started yesterday Acute kidney injury Obstructive uropathy Suspect ATN Pancolitis --CT ABD:Moderate right-sided hydroureteronephrosis secondary to two obstructing proximal right ureteral calculi measuring up to 10 mm.. Mild left-sided hydroureteronephrosis secondary to an obstructing 9 mm calculus within the proximal left ureter. Bilateral nephrolithiasis with urinary bladder calculi. Similar size of the pancreatic head mass with periportal lymphadenopathy. Contracted gallbladder with wall thickening and pericholecystic edema again no ronnie. Common bile duct stent is in place. Nonspecific wall thickening of the rectosigmoid and ascending colon with adjacent inflammatory stranding. Correlate clinically to exclude a nonspecific proctocolitis. --S/P Cystoscopy, Retrograde Pyelogram with Bilateral Stent Insertion by Dr. Ortega on 09/17/2023 --Blood cultures negative to date --Urine culture negative --Stool studies negative for infection Completed IV Zosyn 7-day course Appreciate nephrology, urology input and recommendation Monitor volume status, renal function Discussed with nephrology on 09/23/2023:Discontinue IV fluids, monitor renal function off fluids Discussed with urology on 09/25/2023: Okay to resume Plavix and monitor for hematuria If hematuria worsens, will need continuous bladder irrigation Given slowly worsening creatinine levels, will give on gentle IV fluids Needs follow-up with nephrology, urology on discharge Creatinine is slightly better at 1.53 as on 09/27/2023 Creatinine is back to normal at 1.38 as of 09/28/2023 Acute metabolic encephalopathy Multifactorial: Renal failure, baclofen --CT head:No acute intracranial abnormality.Chronic right MCA infarct. Avoid sedative medications as able Renally dose meds Baclofen on hold No other obvious source of infection Mental status back to baseline In couple but he seems to be cleared Pancytopenia Neutropenia--resolved Likely due to chemotherapy Discussed with oncology Dr. Acharya on 09/21/2023: Recommends to start Neupogen Needs follow-up with oncology on discharge Discontinued Neupogen after 2 doses Neutropenia resolved Elevated leukocytosis secondary to Neupogen CBC has been increased to 43,000 White cell count has been coming down Thrombocytopenia Given transient epistaxis and ongoing minimal hematuria S/P platelet transfusion Monitor-platelet count remains at 148 Oral thrush Continue nystatin Hypomagnesemia Replete electrolytes as needed Monitor (4) Anemia: Acute on chronic anemia Thrombocytopenia Positive fecal occult Possibly hematuria contributed as well reported 2 episodes of hematemesis at home Possible Upper GI bleed On 09/18/23, GI evaluated and noted currently declined EGD at the time and wished to continue PPI therapy. S/P 3 PRBC Hb 8.2 today Appreciate GI input Given risks versus benefits, EGD currently deferred Will likely benefit from EGD as outpatient Monitor CBC Monitor H&H and transfuse as needed Continue PPI Discussed with GI Dr. Hernández on 09/25/2023: Okay to resume Plavix. If rebleeds, patient will need to stop aspirin, Plavix permanently Hemoglobin remains stable at 8.3 for the last 3 days (5) Pancreatic cancer: Follow-up as outpatient Palliative care consulted to address goals of care (6) Elevated LFTs: (7) Transaminitis: Likely related to metastatic pancreatic cancer on chemo. --Liver USD:Heterogeneous liver with mild nodularity of the surface contour. This suggests morphologic change of cirrhosis. There is gas throughout the gallbladder lumen which degrades assessment for gallstones. Gallbladder wall thickening is nonspecific. Trace perihepatic ascites. A common bile duct stent is in place. Monitor LFTs Avoid nephrotoxic agents as able Normal ammonia Discussed with GI on 09/22/2023 Continue to monitor (8) HTN (hypertension): Blood pressure stable Continue to hold home losartan Monitor (9) DMII (diabetes mellitus, type 2): Per , patient was on Lantus 10 units daily and metformin 500 mg twice daily. Hold home metformin. Continue insulin while hospitalized Monitor blood glucose levels (10) CAD (coronary artery disease): History of CAD. Continue to hold aspirin Plavix resumed on 09/25/2023 Continue metoprolol (11) DVT prophylaxis: SCD for now Re: Thrombocytopenia, hematuria Code Status: DNI/DNR Disposition Patient and patient's refuses rehab placement Case management to help with discharge planning Discharge today Total Time Total Time Spent Total Time Spent (In Minutes): 40 minutes Discharge Plan Discharge Items Patient Disposition: Home - Home Health Services Reason For Visit: HEMATURIA, VOMITING Discharge Diagnosis: Acute kidney injury, obstructive uropathy status post bilateral ureteric stent placement, pancreatic cancer, pancytopenia Condition on Discharge: Fair Activity: Resume your previous activity Non-emergency contact: Primary Care Provider Call non-emergency contact if: you have any medication questions and your symptoms worsen Follow-up/Referrals: Carlin Ortega MD [Physician] - (The Urology office will contact you for a follow up appointment.) Lenora Harding MD [Outside Practitioners] - (Date & Time 10/03/2023 2:00 PM Provider Lenora Harding MD [facility] ) Diet: Regular and Carb Consistent or DM2 Diet Comment: Minced and moist Addtl Attending Provider Instructions: Please take precautions to avoid falls Take your medications as advised Do not take any more aspirin and losartan Please keep appointments with the healthcare providers and Dr. Acharya You can take magnesium which is [id number] Pending Studies at Discharge: No Stand-Alone Forms: My [facility], Smoking Cessation Medications and DC Order Prescriptions: New Mag 64 64 mg Tablet,Delayed Release (Dr/Ec) 64 mg PO BID Qty: 60 0RF Continued fluoxetine 40 mg capsule 40 mg PO DAILY clopidogrel 75 mg tablet 75 mg PO DAILY baclofen 10 mg tablet 15 mg PO QID ezetimibe 10 mg tablet 10 mg PO DAILY thiamine HCl (vitamin B1) 100 mg Tablet 100 mg PO DAILY metoprolol tartrate 50 mg tablet 50 mg PO DAILY folic acid 1 mg tablet 1 mg PO DAILY acetaminophen [Tylenol Extra Strength] 500 mg Tablet 500 mg PO DIRECTED PRN (Reason: PAIN/FEVER) diphenhydramine HCl [Benadryl] 25 mg Capsule 25 mg PO Q6H PRN (Reason: Itching) metformin 500 mg tablet extended release 24 hr 500 mg PO BID oxycodone 5 mg tablet 2.5 mg PO Q6H PRN (Reason: Pain) insulin glargine [Lantus Solostar U-100 Insulin] 100 unit/mL (3 mL) insulin pen 10 unit SUBCUT QAM Rx Instructions: 10 units now instead of 8 per polyethylene glycol 3350 [Miralax] 17 gram Powder In Packet 17 g PO DAILY PRN (Reason: constipation) Qty: 30 0RF pantoprazole [Protonix] 40 mg tablet,delayed release (DR/EC) 40 mg PO BID Qty: 60 0RF Discontinued aspirin 81 mg Capsule 81 mg PO DAILY losartan 50 mg tablet 50 mg PO DAILY Discharge Orders: Discharge Order (Routine); Ordered 09/28/23 Ordered By: Dalton Madrid/Other Patient Handouts: Cystoscopy Admission Data Admit Date/Time: 09/17/23 18:26 Attending Provider: Dalton Ching Admit Provider: Amina Castellano I. Primary Care Provider: Mati Sanabria Other Providers: Amina Castellano I.; Carlin Ortega; Fabrice Mendiola; Elissa Arnold; Faustino Chowdhury Other Interventions: Discharge Summary Assessment (RN) Last Done: 09/28/23 14:01
== END 2023-09-28 14:45 | disposition home health service (06) | DRG 659 ==
LOC: ED 15:01 → 2E 18:26 → SUATTDRO 18:26 → 2E 18:57 → 3E 09-26 17:31
DX: Z83.3 Family history of diabetes mellitus; K52.9 Noninfective gastroenteritis and colitis, unspecified; R31.9 Hematuria, unspecified; N13.2 Hydronephrosis with renal and ureteral calculous obstruction; G93.41 Metabolic encephalopathy; N17.0 Acute kidney failure with tubular necrosis; C25.0 Malignant neoplasm of head of pancreas; Z66 Do not resuscitate; Z79.02 Long term (current) use of antithrombotics/antiplatelets; A41.9 Sepsis, unspecified organism; G89.3 Neoplasm related pain (acute) (chronic); M62.81 Muscle weakness (generalized); D84.9 Immunodeficiency, unspecified; I10 Essential (primary) hypertension; G92.8 Other toxic encephalopathy; D64.89 Other specified anemias; Z79.84 Long term (current) use of oral hypoglycemic drugs; E11.9 Type 2 diabetes mellitus without complications; B37.0 Candidal stomatitis; K92.0 Hematemesis; Z79.82 Long term (current) use of aspirin; C78.7 Secondary malignant neoplasm of liver and intrahepatic bile duct; R53.1 Weakness; N13.1 Hydronephrosis with ureteral stricture, not elsewhere classified; D61.810 Antineoplastic chemotherapy induced pancytopenia; Z79.899 Other long term (current) drug therapy; F41.9 Anxiety disorder, unspecified; I69.354 Hemiplegia and hemiparesis following cerebral infarction affecting left non-dominant side; Z79.4 Long term (current) use of insulin; I25.10 Atherosclerotic heart disease of native coronary artery without angina pectoris; E83.42 Hypomagnesemia; T42.8X5A Adverse effect of antiparkinsonism drugs and other central muscle-tone depressants, initial encounter

== ENCOUNTER 2023-10-01 22:14 | Inpatient (IN) ==
--- OUTSIDE RECORDS SUMMARY | 2023-10-01 22:28 | External Medical Summary | Summary of Care ---
Author Name Unknown Organization [facility] Address [address] [place] [address] Phone [phone] Care Team Providers Care Stator Plate Washer Name Role Phone Lenora Harding MD Primary Care Provid er Reason for Visit * Reason Onset Date Comments Advice 09/20/2023 Dr. Acharya Encounter Details Date Type Department Care Team (Late st Contact Info) Description 09/20/2023 Telephone Hematology/Oncology [facility] [place] 200 [facility] [place] [address] Services, Scheduling [address] [place] [address] Advice (Dr. Acharya ) Allergies No known active allergiesdocumented as of this encounter (statuses as of 09/20/2023) Medications Medication Sig Dispensed Refills Start Date [...] Oral Tablet (Lopressor)Indication s:Coronary artery disease involving [place] heart, unspecified vessel or lesion type, unspecified [...] as of this encounter (statuses as of 09/20/2023) Active Problems Problem Noted Date Diagnosed Date Encounter for antineoplastic chemotherapy 2023 FHx: pancreatic cancer 06/16/2023 Pancreatic cancer metastasized to liver 06/02/20 23 Gastric outlet obstruction 06/01/2023 Type 2 diabetes mellitus, [facility] long-term current use of insulin 05/31/2023 Pancreatic [...] as of this encounter (statuses as of 09/20/2023) Resolved Problems Problem Noted Date Diagnosed Date [...] as of this encounter (statuses as of 09/20/2023) Immunizations Name Administration Dates Next Due Pneumococcal Conjugate Vacci ne, 20-valent ([id number]) 06/03/2023(Deferred: Patient Refused) Seasonal Influenza, PF, 6 [...] Telephone Encounter - Keegan Lopez RN - 09/20/2023 2:[address] Marck nation, pt currently admitted. Called to speak with Wiley, no answer, LMOM with return #. Pt is due for labs on 09/28 prior to treatment and follow up. * Telephone Encounter - Jailene Lopez OSA - 09/20/2023 2:32 PM EDT Patients Wiley Benz was scheduled to have lab work completed for Dr. Acharya today and she had to cancel this since he is admitted at [facility]. She was inquiring if the lab work he had completed at [facility] would be accepted or if she needs to reschedule him. Please contact Wiley at [phone]. Thank you. documented in this encounter Plan of Treatment Upcoming Encounters Date Type Department Care Team (Late st Contact Info) Description 09/29/2023 8:50 AM EDT Laboratory Laboratory [facility] [place] 200 [facility] [place] [phone] [place] Lab [facility] [address] [place] [address] 09/29/2023 9:30 AM EDT Office Visit Hematology/Oncology [facility] [place] [address] [place] [phone] Hannah Guillory CRNP [address] [facility] [place] [address] 09/29/2023 10:00 AM EDT Hem/Onc Treatment Hematology/Oncology [address] [phone] [place], Chair 2 Hem Onc [facility] 200 [facility] [place] [address] 10/06/2023 10:00 AM EDT Laboratory Laboratory [facility] [place] [address] [place] [phone] [place], Lab [facility] [address] [facility] [place] [address] 10/06/2023 11:00 AM EDT Hem/Onc Treatment Hematology/Oncology [address] [phone] [place], Chair 2 Hem Onc [address] [place] [address] 10/10/2023 1:45 PM EDT Imaging Radiology [address], [place] 132 [facility] [place] [address] 10/20/2023 12:30 PM EDT Laboratory Laboratory [facility] [address] [place] [phone] [place], Lab [facility] [address] [place] [address] 10/20/2023 1:15 PM EDT Office Visit Hematology/Oncology [facility] [address] [place] [phone] Ryne Acharya MD [address] [place] [address] 10/20/2023 1:45 PM EDT Hem/Onc Treatment Hematology/Oncology Treatment, [place] 200 [facility], [place] [phone] [place], Chair 11 Hem Onc Scen[address] 200 [facility] [place] [address] 02/22/2024 11:50 AM EDT Office Visit [facility] [address] [place] [phone] Mary Calderón DO [address], [place] [phone] Scheduled Procedures Name Priority Associated Diagnoses Date/Ti [...] Ratio 05/11/2024 05/11/2023, 04/05 GFR 09/14/2024 09/15/2023, 10/2023, 08/25/2023, Additional history exists COLONOSCOPY-EVERY 5 YRS AGES 18-100 07/19/2027 07/19/2022, 07/19/2022, 04/12/2017, Additional history exists Zoster Vaccines Completed 03/16/2021, 09/11/2020 GARDASIL-HPV IMMUNIZATION SERIES Aged Out No longer eligible based on patient's age to complete this topic MENINGOCOCCAL (MENACTRA/MENVEO) Aged Out No longer eligible based on patient's age to complete this topic documented as of this encounter Medical Devices Implanted Type Area Food And Nutrition Supervisor Device Identifier Shelf Expiration Date Model / Serial / Lot Port 8fr 1lumen Infusion St Latexfree Power Implantable - [id number] Implanted:Qty: 1 on 07/07/2023 by Acosta Mathur MD at OR [facility] Left: Chest CR BARD : PERIPHERAL VASCULAR [id number] 05/04/2024 [id number] / / [id number] Stent Axios [id number] - [id number] Implanted:Qty: 1 on 08/11/2023 by Jayashree Alston MD at OR [facility] [employer] : ENDOSCOPY [id number] 06/19/2025 [id number] / / [id number] Stent Biliary Adult L30mm Dia1 - [id number] Implanted:Qty: 1 on 08/11/2023 by Jayashree Alston MD at OR [facility] COOK : SANDRA MTZ [id number] 06/21/2026 [id number] / / [id number] documented as of this encounter Advance Directives Documents on File Type Date Recorded Patient Information Coder Expl reji POLST 08/03/2023 10:10 AM POLST (Morenita dos santos DNR) Latest Code Status on File Code Status Date Activated Date Inactivated Comments Full Code 05/30/2023 10:13 PM 06/03/2023 2:34 PM Th is order reflects the patients wishes and were consensually agreed upon. Question Answer Comments Discussion of Advance Directives occurred with: Patient Care Teams Stator Plate Washer Relationship Specialty Start Date End Date Lenora Harding MD [address] [place] [address] PCP - General Family Medicine 12/31/21 documented as of this encounter
--- OUTSIDE RECORDS SUMMARY | 2023-10-01 22:28 | External Medical Summary | Summary of Care ---
Author Name Unknown Organization [facility] Address [address] [place] [address] Phone [phone] Care Team Providers Care Apprentice Name Role Phone Lenora Harding MD Primary Care Provid er Reason for Visit * Reason Onset Date Comments Hospital Follow-Up 09/29/2023 YOBANI Encounter Details Date Type Department Care Team (Late st Contact Info) Description 09/29/2023 Telephone Ancillary Jazmin Reynoso [place] [address] [place] [address] Jeannette Sorto, MAMTA Hospital Follow-Up (YOBANI) Allergies No known active allergiesdocumented as of this encounter (statuses as of 09/29/2023) Medications Medication Sig Dispensed Refills Start Date End Date Status THIAMINE (VITAMIN B-1) 100 MG Tablet Take 1 Tablet by mouth in the morning. 0 Active acetaminophen (TYLENOL) 500 MG Tablet Take by mouth as needed. 0 Active diphenhydrAMINE HCl 25 MG Oral Tablet Take 1 Tablet by mouth every 6 hours as needed for Itching. 0 Active Ezetimibe 10 MG Oral Tablet (Zetia)Indications: Dyslipidemia, goal LDL below 70,Carotid stenosis, symptomatic, with infarction (HCC),Cerebral atherosclerosis,Fat ty liver,History of cardioembolic cerebrovascular accident (CVA) Take 1 Tablet by mouth in the morning. 90 Tablet 3 09/17/19 23 Active Folic Acid 1 MG Oral TabletIndications:C erebrovascular disease, arteriosclerotic, post-stroke TAKE 1 TABLET BY MOUTH EVERY DAY AT 9AM. 90 Tablet 3 09/17/19 23 Active Clopidogrel Bisulfate 75 MG Oral Tablet (pLAVix)Indications :Cerebrovascular disease, arteriosclerotic, post-stroke Take 1 Tablet by mouth in the morning. 90 Tablet 3 09/17/19 23 Active OneTouch Verio In Vitro Strip (Glucose Blood)Indications:T ype 2 diabetes mellitus with hemoglobin A1c goal of less than 7.0% (HCC) USE UP TO FOUR TIMES DAILY FOR BLOOD GLUCOSE TESTING 100 Strip 11 03/03/20 23 Active metFORMIN HCl ER 500 MG Oral Tablet Extended Release 24 Hour (Glucophage XR)Indications:Type 2 diabetes mellitus with hemoglobin A1c goal of less than 7.0% (HCC) Take 1 Tablet by mouth in the morning and 1 Tablet before bedtime. 180 Tablet 3 04/29/20 23 Active Baclofen 10 MG Oral Tablet (Lioresal)Indicatio ns:Left hemiplegia (HCC),Spasm of muscle TAKE 1 AND 1/2 TABLETS BY MOUTH FOUR TIMES A DAY 540 Tablet 1 05/01/20 23 Active Ondansetron HCl 8 MG Oral Tablet (Zofran)Indications :Pancreatic cancer metastasized to liver (HCC) Take 1 Tablet by mouth every 8 hours as needed for Nausea. 30 Tablet 2 06/29/19 24 Active Additional Information Patient not taking.Reported on 07/07/2023 Prochlorperazine Maleate 10 MG Oral Tablet (Compazine)Indicati ons:Pancreatic cancer metastasized to liver (HCC) Take 1 Tablet by mouth every 6 hours as needed for Nausea. 30 Tablet 2 06/29/19 24 Active Additional Information Patient not taking.Reported on 07/07/2023 Lidocaine-Prilocain e 2.5-2.5 % External Cream (Emla)Indications:P ancreatic cancer metastasized to liver (HCC) APPLY TO SKIN OVER MEDIPORT & COVER 1HR PRIOR TO ACCESSING. 30 g 1 06/29/19 24 Active Additional Information Patient not taking.Reported on 07/07/2023 oxyCODONE HCl 5 MG Oral Tablet (Oxy IR)Indications:Panc reatic cancer metastasized to liver (HCC) Take 1 Tablet by mouth every 6 hours as needed for Pain, Severe. 30 Tablet 0 07/14/19 24 Active BD Pen Needle Stefanie 2nd Gen 32G X 4 MM (Insulin Pen Needle) Use to inject insulin daily as directed. 100 Each 0 07/25/19 24 Active Metoprolol Tartrate 50 MG Oral Tablet (Lopressor)Indicati ons:Coronary artery disease involving [place] heart, unspecified vessel or lesion type, unspecified whether angina present Take 1 Tablet by mouth in the morning. 90 Tablet 1 07/25/19 24 Active Pantoprazole Sodium 40 MG Oral Tablet Delayed Release (Protonix) Take 1 Tablet by mouth in the morning and 1 Tablet before bedtime. 30 minutes before the first meal of the day. Do not crush, split or chew the tablet. 60 Tablet 5 08/03/19 24 Active Lantus SoloStar 100 UNIT/ML Subcutaneous Solution Pen-injectorIndicat ions:Pancreatic cancer metastasized to liver (HCC),Type 2 diabetes mellitus with hyperglycemia, without long-term current use of insulin (HCC) Inject 10 Units under the skin in the morning. 15 mL 5 09/08/19 24 Active FLUoxetine HCl 40 MG Oral Capsule (PROzac) TAKE 1 CAPSULE BY MOUTH EVERY DAY 90 Capsule 3 09/25/19 24 Active aspirin enteric coated (ECOTRIN LOW STRENGTH) 81 MG TBECIndications:Ess ential hypertension with goal blood pressure less than 140/90 Take 1 Tab by mouth daily. 100 Tab 3 12/20/19 18 024 Discontinued(Me dication/Dose Changed) Losartan Potassium 50 MG Oral Tablet (Cozaar)Indications :Essential hypertension with goal blood pressure less than 140/90 TAKE 1 TABLET BY MOUTH EVERY DAY 90 Tablet 3 09/25/19 24 024 Discontinued documented as of this encounter (statuses as of 09/29/2023) Active Problems Problem Noted Date Diagnosed Date [...] as of this encounter (statuses as of 09/29/2023) Resolved Problems Problem Noted Date Diagnosed Date [...] as of this encounter (statuses as of 09/29/2023) Immunizations Name Administration Dates Next Due Pneumococcal Conjugate Vacci ne, 20-valent ([id number]) 06/03/2023(Deferred: Patient Refused) Seasonal Influenza, PF, 6 [...] encounter Miscellaneous Notes * Telephone Encounter - Jeannette Sorto RN - 09/29/2023 8:49 AM EDT Images from the original note were not included. Transitions of Care Note Reason for Referral:Recent Admission Phone visit for follow up: YOBANI Admitted to: [facility], Date: 09/16 Discharged to: Home Self Care, Date: 09/27 Diagnosis driving hospitalization: Acute kidney injury Obstructive uropathy status post bilateral ureteric stent placement Pancreatic cancer pancytopenia Source/Contact: Patient SUBJECTIVE Consent: Verbal consent for review of hospital discharge: Yes REVIEW OF SYSTEMS Patient/Other Reports: Current patient/caregiver problems or concerns: feeling weak CV: Denies problems Pulmonary: Denies problems Chills/Sweats/Fever:Denies chills/sweats Denies fever Appetite:poor appetite Current diet: carb count, minced moist Bowel: denies problems Bladder: denies problems Wound (If applicable): N/A Pain:Denies Sleep:did not sleep well last night FUNCTIONAL STATUS: ADL'S: Needs Assistance With:Bathing, Dressing, Toileting, and Transferring IADL'S: Needs Assistance With:Grocery Shopping, Cooking food, Routine Housework, Taking medications, and Managing money Cognitive and Mental Health: denies problems, alert and oriented x 3, and able to communicate, understand instructions, process information. MEDICATION RECONCILIATION Medications: Discharge med list reviewed with patient or caregiver New medication(s) filled since hospitalization- see below Discontinued medication(s) since hospitalization- see below Denies side effects ASSESSMENT Medication Risk Assessment: Hgb less than 10 Did patient fail outpatient treatment? No Discharge instructions available for review? Yes PLAN Symptom Monitoring Interventions:Member/caregiver education - signs and symptoms to contact PrimaryCare (DO NOT DELETE-Three guerra symptoms patient is to report to PCP) 1. Fever 2. Cough, SOB, wheezing 3. Increasing pain not controled with current medication Aircraft Steel [id number] Engineer of Care interventions/Action Plan: 5 - 7 day follow-up with PCP in place - Date: Dr. Harding 10/02 at 2 PM Educated on role of YOBANI completed with patient/caregiver. Educated patient/caregiver on patient right to have input on YOBANI plan of care. Verification of Home Health/DME if indicated: YES [facility] Identified Care Gaps: Yes Care Gaps closed this call: Appointment made or confirmed and Transition of Care follow-up communication Re-evaluation of Plan of Care and progress towards goals achievement: Patient education this visit: Verbal, encouraged to increase fluids, contact with any questions or concerns Plan to discharge needs met, verbalizes understanding and agrees with plan. Jeannette Brady, MAMTA documented in this encounter Plan of Treatment Upcoming Encounters Date Type Department Care Team (Late st Contact Info) Description 10/03/2023 2:00 PM EDT Office Visit [facility], [place] [address] [facility], [place] [phone] Lenora Harding MD [address] [facility], [place] [address] 10/06/2023 10:00 AM EDT Laboratory Laboratory [facility] [place] [address] [place] [phone] [place], Lab Scenery [address] [facility] [place] [address] 10/06/2023 11:00 AM EDT Hem/Onc Treatment Hematology/Oncology Treatment, [place] 200 [facility] [place] [phone] [place], Chair 2 Hem Onc [address] [place] [address] [address] 10/10/2023 1:45 PM EDT Imaging Radiology [address], [place] [address] [facility] [id number] 10/20/2023 12:30 PM EDT Laboratory Laboratory [facility] [place] [address] [place] [address] [phone] [place], Lab Scenery [address] [facility] [place] [address] 10/20/2023 1:15 PM EDT Office Visit Hematology/Oncology Jazmin Reynoso [place] [address] [place] [address] [phone] Ryne Acharya MD [address] [place] [address] 10/20/2023 1:45 PM EDT Hem/Onc Treatment Hematology/Oncology Treatment, [place] 200 [facility] [place] [phone] [place], Chair 11 Hem Onc Scenery [address] [place] [address] 02/22/2024 11:50 AM EDT Office Visit [facility] [address] [place] [address] Mary Calderón, [address] [place] [address] Scheduled Procedures Name Priority Associated [...] of 3 - 19+ 3-dose series) 1985 Cologuard 2011 Fecal Occult Blood Test 2011 Sigmoidoscopy 2011 DTaP,Tdap,and Td Vaccines (2 - Td or Tdap) 02/06/2022 02/07/2012 Depression Screening 03/16/2023 03/16/2022, 03/03/20 16 Influenza Vaccine (FLU shot) (Season Ended) 2024 03/12/2018 (Declined), 09/22/2017 (Refused) HbA1c 02/25/2024 08/25/2023, 05/05, 02/09/2023 Albumin/Creatinine Ratio 05/11/2024 05/11/2023, 04/05 GFR 09/14/2024 09/15/2023, 04/10/2023, 08/25/2023, Additional history exists Colonoscopy 07/19/2027 07/19/2022, 07/06, 04/12/2017, Additional history exists Colorectal Cancer Screening 07/19/2027 Zoster Vaccines Completed 03/16/2021, 09/11/2020 RETIRED - COLONOSCOPY-EVERY 5 YRS AGES 18-100 Discontinued 07/19/2022, 07/19/2022, 04/12/2017, Additional history exists GARDASIL-HPV IMMUNIZATION SERIES Aged Out No longer eligible based on patient's age to complete this topic MENINGOCOCCAL (MENACTRA/MENVEO) Aged Out No longer eligible based on patient's age to complete this topic documented as of this encounter Medical Devices Implanted Type Area Sales Force Administrator Device Identifier Shelf Expiration Date Model / Serial / Lot Port 8fr 1lumen Infusion St Latexfree Power Implantable - [id number] Implanted:Qty: 1 on 07/07/2023 by Acosta Mathur MD at OR [facility] Left: Chest CR BARD : PERIPHERAL VASCULAR [id number] 05/04/2024 [id number] / / [id number] Stent Axios [id number] - [id number] Implanted:Qty: 1 on 08/11/2023 by Jayashree Alston MD at OR [facility] [employer] : ENDOSCOPY [id number] 06/19/2025 [id number] / / [id number] Stent Biliary Adult L30mm Dia1 - [id number] Implanted:Qty: 1 on 08/11/2023 by Jayashree Alston MD at OR [facility] COOK : SANDRA BIBI [id number] 06/21/2026 [id number] / / [id number] documented as of this encounter Advance Directives Documents on File Type Date Recorded Patient Locker Room Supervisor Expl 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 Question Answer Comments Discussion of Advance Directives occurred with: Patient Care Teams Apprentice Relationship Specialty Start Date End Date Lenora Harding MD [address] [place] [address] PCP - General Family Medicine 12/31/21 documented as of this encounter
--- OUTSIDE RECORDS SUMMARY | 2023-10-01 22:28 | External Medical Summary | Summary of Care ---
Author Name Unknown Organization [facility] Address [address] [place] [address] Phone [phone] Care Team Providers Care Bed Operator Name Role Phone Lenora Harding MD Primary Care Provid er Encounter Details Date Type Department Care Team (Late st Contact Info) Description 09/29/2023 Documentation Ancillary [facility] 200 [facility] [place] [id number] Jeannette Sorto, MAMTA Allergies No known active allergiesdocumented as of [...] Oral Tablet (Lopressor)Indicati ons:Coronary artery disease involving [place] heart, unspecified vessel or lesion type, unspecified [...] DAY 90 Capsule 3 09/25/19 24 Active Mag64 64 MG Oral Tablet Delayed Release Take 1 Tablet by mouth in the morning and 1 Tablet in the evening. 0 09/28/19 24 Active aspirin enteric coated (ECOTRIN LOW [...] Next Due Pneumococcal Conjugate Vacci ne, 20-valent ([id number]) 06/03/2023(Deferred: Patient Refused) Seasonal Influenza, PF, 6 [...] Description 10/03/2023 2:00 PM EDT Office Visit [facility] [address] [facility] [phone] Lenora Harding MD [address] [facility] [address] 10/06/2023 10:00 AM EDT Laboratory Laboratory [facility] [place] [address] [place], [place] [phone] [place], Lab Scenery [address] [place], [place] [address] 10/06/2023 11:00 AM EDT Hem/Onc Treatment Hematology/Oncology Treatment, [place] [facility] [phone] [place], Chair 2 Hem Onc Scen[address] [place], [place] [address] 10/10/2023 1:45 PM EDT Imaging Radiology [address], [place] [facility] [place] [address] 10/20/2023 12:30 PM EDT Laboratory Laboratory [facility] [place] [address] [place] [phone] [place], Lab Scenery [address] [place], [place] [address] 10/20/2023 1:15 PM EDT Office Visit Hematology/Oncology [facility] [place] [address] [place] [phone] Ryne Acharya MD [address] [place], [place] [address] 10/20/2023 1:45 PM EDT Hem/Onc Treatment Hematology/Oncology Treatment, [place] 200 [facility], [place] [phone] [place], Chair 11 Hem Onc [address] [place], [place] [address] 02/22/2024 11:50 AM EDT Office Visit [address], [place] [phone] Mary Calderón, [address] [place] [address] Scheduled Procedures Name Priority Associated Diagnoses Date/Ti [...] 09/15/2023, 04/0 10/2023, 08/25/2023, Additional history exists Colonoscopy 07/19/2027 07/19/2022, [...] this encounter Medical Devices Implanted Type Area Bladder Cleaner Device Identifier Shelf Expiration Date Model / Serial / Lot Port 8fr 1lumen Infusion St Latexfree Power Implantable - [id number] Implanted:Qty: 1 on 07/07/2023 by Acosta Mathur MD at OR [facility] Left: Chest CR BARD : PERIPHERAL VASCULAR [id number] 05/04/2024 [id number] / / [id number] Stent Axios 87jto60dz - [id number] Implanted:Qty: 1 on 08/11/2023 by Jayashree Alston MD at OR [facility] [employer] : ENDOSCOPY [id number] 06/19/2025 [id number] / / [id number] Stent Biliary Adult L30mm Dia1 - [id number] Implanted:Qty: 1 on 08/11/2023 by Jayashree Alston MD at OR [facility] COOK : SANDRA MTZ [id number] 06/21/2026 [id number] / / [id number] documented as of this encounter Advance Directives Documents on File Type Date Recorded Patient Bi Technical Lead Expl 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 Question Answer Comments Discussion of Advance Directives occurred with: Patient Care Teams Bed Operator Relationship Specialty Start Date End Date Lenora Harding MD [address] [place] [address] PCP - General Family Medicine 12/31/21 documented as of this encounter
--- OUTSIDE RECORDS SUMMARY | 2023-10-01 22:28 | External Medical Summary | Summary of Care ---
Author Name Unknown Organization [facility] Address [address] [place] [address] Phone [phone] Care Team Providers Care Lbd Teacher Name Role Phone Kenia Teran MD Primary Care Provid er Reason for Visit * Reason Comments eRx-Medication Refill Encounter Details Date Type Department Care Team (Late st Contact Info) Description 09/24/2023 Refill [facility] [address] [place] [address] Kenia Teran MD [address] [place] [address] Essential hypertension with goal blood pressure less than 140/90 Allergies No known active allergiesdocumented as of this encounter (statuses as of 09/25/2023) Medications Medication Sig Dispensed Refills Start Date End Date Status THIAMINE (VITAMIN B-1) 100 MG Tablet Take 1 Tablet by mouth in the morning. 0 Active aspirin enteric coated (ECOTRIN LOW STRENGTH) 81 MG TBECIndications:Ess ential hypertension with goal blood pressure less than 140/90 Take 1 Tab by mouth daily. 100 Tab 3 8 Active acetaminophen (TYLENOL) 500 MG Tablet Take [...] mouth in the morning. 90 Tablet 3 3 Active Folic Acid 1 MG Oral TabletIndications:C erebrovascular disease, arteriosclerotic, post-stroke TAKE 1 TABLET BY MOUTH EVERY DAY AT 9AM. 90 Tablet 3 3 Active Clopidogrel Bisulfate 75 MG Oral Tablet (pLAVix)Indications :Cerebrovascular disease, arteriosclerotic, post-stroke Take 1 Tablet by mouth in the morning. 90 Tablet 3 3 Active OneTouch Verio In Vitro Strip (Glucose Blood)Indications:T ype 2 diabetes mellitus with hemoglobin A1c goal of less than 7.0% (HCC) USE UP TO FOUR TIMES DAILY FOR BLOOD GLUCOSE TESTING 100 Strip 11 3 Active metFORMIN HCl ER 500 MG Oral Tablet Extended Release 24 Hour (Glucophage XR)Indications:Type 2 diabetes mellitus with hemoglobin A1c goal of less than 7.0% (HCC) Take 1 Tablet by mouth in the morning and 1 Tablet before bedtime. 180 Tablet 3 3 Active Baclofen 10 MG Oral Tablet (Lioresal)Indicatio ns:Left hemiplegia (HCC),Spasm of muscle TAKE 1 AND 1/2 TABLETS BY MOUTH FOUR TIMES A DAY 540 Tablet 1 3 Active Ondansetron HCl 8 MG Oral Tablet (Zofran)Indications :Pancreatic cancer metastasized to liver (HCC) Take 1 Tablet by mouth every 8 hours as needed for Nausea. 30 Tablet 2 4 Active Additional Information Patient not taking.Reported on 07/07/2023 Prochlorperazine Maleate 10 MG Oral Tablet (Compazine)Indicati ons:Pancreatic cancer metastasized to liver (HCC) Take 1 Tablet by mouth every 6 hours as needed for Nausea. 30 Tablet 2 4 Active Additional Information Patient not taking.Reported on 07/07/2023 Lidocaine-Prilocain e 2.5-2.5 % External Cream (Emla)Indications:P ancreatic cancer metastasized to liver (HCC) APPLY TO SKIN OVER MEDIPORT & COVER 1HR PRIOR TO ACCESSING. 30 g 1 4 Active Additional Information Patient not taking.Reported on 07/07/2023 oxyCODONE HCl 5 MG Oral Tablet (Oxy IR)Indications:Panc reatic cancer metastasized to liver (HCC) Take 1 Tablet by mouth every 6 hours as needed for Pain, Severe. 30 Tablet 0 4 Active BD Pen Needle Stefanie 2nd Gen 32G X 4 MM (Insulin Pen Needle) Use to inject insulin daily as directed. 100 Each 0 4 Active Metoprolol Tartrate 50 MG Oral Tablet (Lopressor)Indicati ons:Coronary artery disease involving [place] heart, unspecified vessel or lesion type, unspecified whether angina present Take 1 Tablet by mouth in the morning. 90 Tablet 1 4 Active Pantoprazole Sodium 40 MG Oral Tablet Delayed Release (Protonix) Take 1 Tablet by mouth in the morning and 1 Tablet before bedtime. 30 minutes before the first meal of the day. Do not crush, split or chew the tablet. 60 Tablet 5 4 Active Lantus SoloStar 100 UNIT/ML Subcutaneous Solution Pen-injectorIndicat ions:Pancreatic cancer metastasized to liver (HCC),Type 2 diabetes mellitus with hyperglycemia, without long-term current use of insulin (HCC) Inject 10 Units under the skin in the morning. 15 mL 5 4 Active FLUoxetine HCl 40 MG Oral Capsule (PROzac) TAKE 1 CAPSULE BY MOUTH EVERY DAY 90 Capsule 3 4 Active Losartan Potassium 50 MG Oral Tablet (Cozaar)Indications :Essential hypertension with goal blood pressure less than 140/90 TAKE 1 TABLET BY MOUTH EVERY DAY 90 Tablet 3 4 Active Losartan Potassium 50 MG Oral Tablet (Cozaar)Indications :Essential hypertension with goal blood pressure less than 140/90 Take 1 Tablet by mouth in the morning. 90 Tablet 3 3 09/25/19 24 Discontinued FLUoxetine HCl 40 MG Oral Capsule (PROzac) Take 1 Capsule by mouth in the morning. 0 09/25/19 24 Discontinued documented as of this encounter (statuses as of 09/25/2023) Active Problems Problem Noted Date Diagnosed Date [...] as of this encounter (statuses as of 09/25/2023) Resolved Problems Problem Noted Date Diagnosed Date [...] as of this encounter (statuses as of 09/25/2023) Immunizations Name Administration Dates Next Due Pneumococcal Conjugate Vacci ne, 20-valent ([id number]) 06/03/2023(Deferred: Patient Refused) Seasonal Influenza, PF, 6 [...] encounter Miscellaneous Notes * Telephone Encounter - Mehdi, Kenia Romy Chipe, MD - 09/25/2023 6:58 PM EDT Signed Prescriptions: Disp Refills FLUoxetine HCl 40 MG Oral Capsule (PROzac) 90 Cap*3 Sig: TAKE 1 CAPSULE BY MOUTH EVERY DAY Authorizing Provider: KENIA TERAN Losartan Potassium 50 MG Oral Tablet (Coza*90 Tab*3 Sig: TAKE 1 TABLET BY MOUTH EVERY DAY Authorizing Provider: KENIA TERAN Ordering User: CARLIN DEL CID * Telephone Encounter - Carlin Del Cid [facility] - 09/25/2023 1:18 PM EDT Pending Prescriptions: Disp Refills FLUoxetine HCl 40 MG Oral Capsule (PROzac) 90 Cap*3 Sig: TAKE 1 CAPSULE BY MOUTH EVERY DAY Signed Prescriptions: Disp Refills Losartan Potassium 50 MG Oral Tablet (Coza*90 Tab*3 Sig: TAKE 1 TABLET BY MOUTH EVERY DAY Authorizing Provider: KENIA TERAN Ordering User: CARLIN DEL CID ----- * Telephone Encounter - Carlin Del Cid [facility] - 09/25/2023 1:18 PM EDT Pharmacists cannot authorize refills for meds listed as "historical" in chart. Please approve if appropriate. Thanks, Carlin Del Cid, JaynaD Clinical Pharmacist [facility] ([facility]) [phone] 09/25/2023, 1:18 PM documented in this encounter Plan of Treatment Upcoming Encounters Date Type Department Care Team (Late st Contact Info) Description 10/06/2023 10:00 AM EDT Laboratory Laboratory [facility] [place] [address] [place] [phone] [place], Lab Scenery [address] [place] [address] 10/06/2023 11:00 AM EDT Hem/Onc Treatment Hematology[facility]cology Treatment, [place] [address] [facility] [phone] [place], Chair 2 Hem Onc Scen[address] [place] [address] 10/10/2023 1:45 PM EDT Imaging Radiology [address], [place] [address] [facility] [place] [address] 10/20/2023 12:30 PM EDT Laboratory Laboratory [facility] [place] [address] [place] [phone] [place], Lab Scenery [address] [facility] [place] [address] 10/20/2023 1:15 PM EDT Office Visit Hematology/Oncology [facility] [place] [address] [place] [phone] Ryne Acharya MD [address] [place] [address] 10/20/2023 1:45 PM EDT Hem/Onc Treatment Hematology/Oncology Treatment, [place] [address] [facility] [phone] [place], Chair 11 Hem Onc Sc[address] [place] [address] 02/22/2024 11:50 AM EDT Office Visit [facility] [address] [place] [address] Mary Calderón DO [address] [place], [place] [phone] Scheduled Procedures Name Priority Associated Diagnoses Date/Ti [...] this encounter Medical Devices Implanted Type Area Program Manager Slp Device Identifier Shelf Expiration Date Model / Serial / Lot Port 8fr 1lumen Infusion St Latexfree Power Implantable - [id number] Implanted:Qty: 1 on 07/07/2023 by Acosta Mathur MD at OR [facility] Left: Chest CR BARD : PERIPHERAL VASCULAR [id number] 05/04/2024 [id number] / / [id number] Stent Axios [id number] - [id number] Implanted:Qty: 1 on 08/11/2023 by Jayashree Alston MD at OR [facility] [employer] : ENDOSCOPY [id number] 06/19/2025 [id number] / / [id number] Stent Biliary Adult L30mm Dia1 - [id number] Implanted:Qty: 1 on 08/11/2023 by Jayashree Alston MD at OR [facility] COOK : SANDRA MTZ [id number] 06/21/2026 [id number] / / [id number] documented as of this encounter Visit Diagnoses Diagnosis Essential hypertension with goal blood pressure less than 140/90 documented in this encounter Advance Directives Documents on File Type Date Recorded Patient Software Engineer Web Applications Expl 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 Question Answer Comments Discussion of Advance Directives occurred with: Patient Care Teams Lbd Teacher Relationship Specialty Start Date End Date Kenia Teran MD [address] [place] [facility] [place] [address] PCP - General Family Medicine 12/31/21 documented as of this encounter
--- OUTSIDE RECORDS SUMMARY | 2023-10-01 22:29 | External Medical Summary | Summary of Care ---
Author Name Unknown Organization [facility] Address [address] [place] [address] Phone [phone] Care Team Providers Care Manager Massage Department Name Role Phone Lenora Harding MD Primary Care Provid er Reason for Visit * Reason Comments Re-Check Chemo recheck Encounter Details Date Type Department Care Team (Late st Contact Info) Description 09/15/2023 11:00 AM EDT Office Visit Hematology/Oncology [facility] [address] [place] [phone] Hannah Guillory CRNP [address] [place] [address] Pancreatic cancer metastasized to liver (HCC)*; Encounter for antineoplastic chemotherapy Allergies No known active allergiesdocumented as of this encounter (statuses as of 09/18/2023) Medications Medication Sig Dispensed Refills Start Date [...] A1c goal of less than 7.0% ([facility]) USE UP TO FOUR TIMES DAILY FOR BLOOD GLUCOSE TESTING 100 Strip 11 03/03/2023 Active metFORMIN HCl ER 500 MG Oral Tablet Extended Release 24 Hour (Glucophage XR)Indications:Type 2 diabetes mellitus with hemoglobin A1c goal of less than 7.0% ([facility]) Take 1 Tablet by mouth in [...] Oral Tablet (Lopressor)Indication s:Coronary artery disease involving [place] heart, unspecified vessel or lesion type, unspecified [...] as of this encounter (statuses as of 09/18/2023) Active Problems Problem Noted Date Diagnosed Date [...] as of this encounter (statuses as of 09/18/2023) Resolved Problems Problem Noted Date Diagnosed Date [...] as of this encounter (statuses as of 09/18/2023) Immunizations Name Administration Dates Next Due Pneumococcal Conjugate Vacci ne, 20-valent ([id number]) 06/03/2023(Deferred: Patient Refused) Seasonal Influenza, PF, 6 [...] Sign Reading Time Taken Comments Blood Pressure 110/72 09/15/2023 10:52 AM EDT Pulse 77 09/15/2023 10:52 AM EDT Temperature 36.3 C (97.4 F) 09/15/2023 10:52 AM E DT Respiratory Rate 16 09/15/2023 10:52 AM EDT Oxygen Saturation 94% 09/15/2023 10:52 AM EDT Inhaled Oxygen Concentration - - Weight 77.3 kg (170 lb 6.4 oz) 09/15/2023 10:52 AM EDT Height - - Body Mass Index 24.45 08/21/2023 10:48 AM EDT documented in this encounter Progress Notes * Hannah Guillory CRNP - 09/15/2023 10:43 AM EDT Hematology/Oncology Outpatient Clinic note [facility] [address] [place] [address] Name: Demar Ocampo Date: 09/15/2023 CHIEF COMPLAINT: Demar Ocampo is a 58 year old male here today for f/u visit today. Patient of Dr. Ryne Acharya. From Patient chart confirmed with patient. HEMATOLOGY/ONCOLOGY DIAGNOSIS: Pancreatic head adenocarcinoma -liver metastasis. [...] nausea and so he was admitted at [facility]. Further workup as follows: Subsequently was transferred to [facility]. - total bilirubin level of 5.4, [...] had left-sided hemiplegia, he was transferred at [facility], has persistent neurological weakness, found to have [...] diagnosis. Interval History: Patient was admitted to [facility] 07/28/23 - 07/31/23 with acute cholecystitis. Presented with left sided abdominal pain, nausea and vomiting. Treated with IV antibiotics. Discharged on Augmentin x 10 days.Patient required 2 units PRBCs during admission. HISTORY OF PRESENT ILLNESS: Demar Ocampo is a 58 year old male with a history as outlined above. Currently here for f/u visittoday and consideration for C3D8 of treatment. Denies mouth sores or pain. Is having some sporadic nausea. Also vomited twice in the last two weeks. Emesis appears to be bile. Denies numbness or tingling. Also having constipation. Not taking anything for this. Did move bowels yesterday but had to strain. Denies any melena or hematochezia. Appetite is declining also over the last couple weeks. Is trying to push oral fluids. Past Medical History: Diagnosis Date Allergic rhinitis [...] Jayashree Alston MD at ENDOSCOPY [facility] COLONOSCOPY, DIAGNOSTIC (RECTUM) 07/19/2022 non-bleeding internal hemorrhoids / no specimens collected / 5 year recall / COLONOSCOPY FLEXIBLE PROXIMAL DIAGNOSTIC performed by Jayashree Alston MD at ENDOSCOPY [facility] EGD, W/ENDOSCOPIC US N/A 05/31/2023 ESOPHAGOGASTRODUODENOSCOPY (EGD), FLEXIBLE, TRANSORAL, ENDOSCOPIC ULTRASOUND performed by Demar Aparicio MD at ENDOSCOPY [facility] EGD, W/ENDOSCOPIC US N/A 08/11/2023 ESOPHAGOGASTRODUODENOSCOPY (EGD), FLEXIBLE, TRANSORAL, ENDOSCOPIC ULTRASOUND performed by Jayashree Alston MD at OR [facility] ERCP, DIAGNOSTIC, SPECIMEN COLLECTION N/A 06/02/2023 ENDOSCOPIC RETROGRADE CHOLANGIOPANCREATOGRAPHY (ERCP) DIAGNOSTIC performed by Demar Aparicio MD atENDOSCOPY [facility] INSER TUNN ACC DEV;5 YRS/OLDER Left 07/07/2023 INSERT TUNNELED CENTRAL VENOUS ACCESS WITH SUBQ PORT performed by Acosta Mathur MD at [facility] REMOVE TONSILS & ADENOIDS, UNDER 13 age 11 THROMBOENDARECTOMY W/PATCH,NECK INCISION Right 11/03/2016 Right CEA for symptomatic disease. 11/03/16. Dr. Cyrus Perez. 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 30 Tablet 0 BD Pen Needle Stefanie 2nd Gen [...] split orchew the tablet. 60 Tablet 5 Lantus SoloStar 100 UNIT/ML Subcutaneous Solution Pen-injector Inject 10 Units under the skin in the morning. 15 mL 5 No current facility-administered medications for this visit. REVIEW OF SYSTEMS: See HPI - otherwise negative OBJECTIVE: Filed Vitals: 09/15/23 1052 BP: 110/72 Pulse: 77 Resp: 16 Temp: 36.3 C (97.4 F) TempSrc: Tympanic SpO2: 94% Weight: 77.3 kg (170 lb 6.4 oz) Wt Readings from Last 5 Encounters: 09/15/23 77.3 kg (170 lb 6.4 oz) 09/08/23 75.1 kg (165 lb 9.6 oz) 08/30/23 78.5 kg (173 lb 1.6 oz) 08/21/23 79.3 kg (174 lb 12.8 oz) 08/18/23 78.6 kg (173 lb 3.2 oz) PHYSICAL EXAM: ECOG: Performance Status 3 = [...] orders placed or performed in visit on 09/15/23 COMPREHENSIVE METABOLIC PANEL Result Value Ref Range BUN 13 6 - 20 mg/dL Creatinine 1.2 0.6 - 1.2 mg/dL Estimated Glomerular Filtration Rate 71 >=60 mL/min Sodium 137 135 - 146 mmol/L Potassium 3.7 3.5 - 5.1 mmol/L Chloride 100 98 - 107 mmol/L CO2 26 22 - 32 mmol/L Anion Gap 11 7 - 15 mmol/L Glucose 147 (H) 70 - 120 mg/dL Albumin 3.3 (L) 3.8 - 5.0 g/dL AST 86 (H) 10 - 50 U/L Alkaline Phosphatase 228 (H) 35 - 130 U/L Bilirubin, Total 1.0 <=1.2 mg/dL Calcium 9.0 8.4 - 10.2 mg/dL Protein 7.0 6.0 - 8.3 g/dL ALT 73 (H) 10 - 50 U/L CBC Result Value Ref Range WBC 2.98 (L) 4.00 - 10.80 K/uL RBC 3.28 4.50 - 5.25 M/uL HGB 8.8 (L) 14.0 - 16.8 g/dL HCT 28.3 (L) 40.0 - 48.4 % MCV 86.3 82.0 - 99.5 fL MCH 26.8 27.0 - 34.0 pg MCHC 31.1 32.0 - 36.0 g/dL RDW 16.9 11.5 - 15.5 % PLT 318 140 - 400 K/uL MPV 8.8 6.6 - 11.1 fL DIFFERENTIAL, AUTOMATED Result Value Ref Range WBC 2.98 (L) 4.00 - 10.80 K/uL Neutrophils % 69.5 40.0 - 75.0 % Lymphocytes % 22.1 18.0 - 42.0 % Monocytes % 6.7 1.0 - 11.0 % Eosinophils % 1.0 0.0 - 6.0 % Basophils % 0.7 0.0 - 2.0 % Absolute Neutrophils 2.07 1.80 - 7.70 K/uL Absolute Lymphocytes 0.66 (L) 1.00 - 4.80 K/ul Absolute Monocytes 0.20 0.00 - 1.10 K/uL Absolute Eosinophils 0.03 0.00 - 0.70 K/uL Absolute Basophils 0.02 0.00 - 0.20 K/uL IMPRESSION/PLAN: Metastatic pancreatic adenocarcinoma Encounter for chemotherapy Patient was admitted to [facility] 07/28/23 - 07/31/23 with acute cholecystitis. Discharged on Augmentin x 10 days. Patient required 2 units PRBCs during admission. S/P EUS guided GB drainage and Axios stent placement 08/11/23. Patient with increasing nausea over last two days. Emesis x 2. Lab results reviewed: LFTs trending upward with AST 86, ALT 73, alk phos 228 Hgb declining at 8.8 CA 19-9 trending down at 138.[address] Alston. Recommends continued monitoring of LFTs at this time. Plan for repeat lab work next week. Will move forward with C3D8 of treatment today as scheduled. Restaging CT C/A/P current scheduled for 10/10/23. RTC in two weeks with provider with chemo return RTC in 5 weeks with physician for chemo return/scan review CADEN Nava documented in this encounter Nursing Notes * Oriana Jackson MED ASSIST - 09/15/2023 10:53 AM EDT Patient identifed by name and birthdate [...] it for you? ALREADY ACTIVE Filed Vitals: 09/15/23 1052 BP: 110/72 Pulse: 77 Resp: 16 Temp: 36.3 C (97.4 F) TempSrc: Tympanic SpO2: 94% Weight: 77.3 kg (170 lb 6.4 oz) Patient was instructed to not get [...] Info) Description 09/21/2023 10:00 AM EDT Laboratory [facility] [address] [facility] [phone] [facility] [address] [facility], [place] [address] 09/29/2023 8:50 AM EDT Laboratory Laboratory [facility] [place] [address] [place] [phone] [place], Lab [facility] [address] [place] [address] 09/29/2023 9:30 AM EDT Office Visit Hematology/Oncology [facility] [place] [address] [place] [phone] Hannah Guillory CRNP [address] [facility] [address] 09/29/2023 10:00 AM EDT Hem/Onc Treatment Hematology/Oncology Treatment, [place] [address] [facility], [place] [address] [place], Chair 2 Hem Onc Sc[address] [place] [address] [address] 10/06/2023 10:00 AM EDT Laboratory Laboratory [facility] [place] [address] [place] [address] [place], Lab Scenery [address] [facility] [place] [address] 10/06/2023 11:00 AM EDT Hem/Onc Treatment [facility]ematology/Oncology [facility], [place] [address] [facility] [address] [place], Chair 2 Hem Onc [address] [place] [address] 10/10/2023 1:45 PM EDT Imaging Radiology [facility] 1st Floor, [place] [address] [facility] [place] [address] 10/20/2023 12:30 PM EDT Laboratory Laboratory [facility] [place] [address] [place] [phone] [place], Lab Scenery [address] [facility] [place] [address] 10/20/2023 1:15 PM EDT Office Visit Hematology/Oncology [facility] [place] [address] [place] [phone] Ryne Acharya MD [address] [place] [address] 10/20/2023 1:45 PM EDT Hem/Onc Treatment Hematology/Oncology Treatment, [place] [address] [place] [phone] [place], Chair 11 Hem Onc [facility] [address] [facility] [place] [address] 02/22/2024 11:50 AM EDT Office Visit [facility] [address] [place] [address] Mary Calderón, DO [address] [place] [address] Scheduled Procedures Name Priority Associated Diagnoses Date/Ti [...] this encounter Medical Devices Implanted Type Area Jewel Hole Rough Opener Device Identifier Shelf Expiration Date Model / Serial / Lot Port 8fr 1lumen Infusion St Latexfree Power Implantable - [id number] Implanted:Qty: 1 on 07/07/2023 by Acosta Mathur MD at OR [facility] Left: Chest CR BARD : PERIPHERAL VASCULAR [id number] 05/04/2024 [id number] / / [id number] Stent Axios [id number] - [id number] Implanted:Qty: 1 on 08/11/2023 by Jayashree Alston MD at OR [facility] [employer] : ENDOSCOPY [id number] 06/19/2025 [id number] / / [id number] Stent Biliary Adult L30mm Dia1 - [id number] Implanted:Qty: 1 on 08/11/2023 by Jayashree Alston MD at OR [facility] BIBI : SANDRA MTZ [id number] 06/21/2026 [id number] / / [id number] documented as of this encounter Visit Diagnoses Diagnosis Pancreatic cancer metastasized to liver (HCC)- Primary Malignant neoplasm of pancreas, part unspecified Encounter for antineoplastic chemotherapy documented in this encounter Advance Directives Documents on File Type Date Recorded Patient Crane Helper Expl 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 Question Answer Comments Discussion of Advance Directives occurred with: Patient Care Teams Manager Massage Department Relationship Specialty Start Date End Date Lenora Harding MD [address] [facility] [place] [address] PCP - General Family Medicine 12/31/21 documented as of this encounter
--- OUTSIDE RECORDS SUMMARY | 2023-10-01 22:29 | External Medical Summary | Summary of Care ---
Author Name Unknown Organization [facility] Address [address] [place] [address] Phone [phone] Care Team Providers Care Day Porter Name Role Phone Lenora Harding MD Primary Care Provid er Reason for Visit * Reason Onset Date Comments Advice 09/20/2023 Dr. Acharya Encounter Details Date Type Department Care Team (Late st Contact Info) Description 09/20/2023 Telephone Hematology/Oncology [facility] [place] [address] [facility] [place] [address] Services, Scheduling [address] [place] [address] Advice (Dr. Acharya ) Allergies No known [...] Oral Tablet (Lopressor)Indication s:Coronary artery disease involving [place] heart, unspecified vessel or lesion type, unspecified [...] outlet obstruction 06/01/2023 Type 2 diabetes mellitus, [facility] long-term current use of insulin 05/31/2023 [...] Next Due Pneumococcal Conjugate Vacci ne, 20-valent ([id number]) 06/03/2023(Deferred: Patient Refused) Seasonal Influenza, PF, 6 [...] cancel this since he is admitted at [facility]. She was inquiring if the lab work he had completed at [facility] would be accepted or if she needs to reschedule him. Please contact Wiley at [phone]. Thank you. documented in this encounter Plan of Treatment Upcoming Encounters Date Type Department Care Team (Late st Contact Info) Description 09/29/2023 8:50 AM EDT Laboratory Laboratory [facility] [place] [address] [facility] [place] [phone] [place] [facility] [address] [place] [address] 09/29/2023 9:30 AM EDT Office Visit Hematology/Oncology [facility] [place] [address] [place] [phone] [facility] Guillory CRNP [address] [facility] [place] [address] 09/29/2023 10:00 AM EDT Hem/Onc Treatment Hematology/Oncology [address] [phone] [place], Chair 2 Hem Onc [facility] [address] [facility] [place] [address] 10/06/2023 10:00 AM EDT Laboratory Laboratory [facility] [place] [address] [place] [phone] [place], Lab [facility] [address] [facility] [place] [address] 10/06/2023 11:00 AM EDT Hem/Onc Treatment Hematology/Oncology [address] [phone] [place], Chair 2 Hem Onc [address] [place] [address] 10/10/2023 1:45 PM EDT Imaging Radiology [address], [place] [address] [facility] [place] [address] 10/20/2023 12:30 PM EDT Laboratory Laboratory [facility] [address] [place] [phone] [place], Lab [facility] [address] [place] [address] 10/20/2023 1:15 PM EDT Office Visit Hematology/Oncology [facility] [address] [place] [phone] Ryne Acharya MD [address] [place] [address] 10/20/2023 1:45 PM EDT Hem/Onc Treatment Hematology/Oncology Treatment, [place] [address] [facility], [place] [phone] [place], Chair 11 Hem Onc [address] [facility] [place] [address] 02/22/2024 11:50 AM EDT Office Visit [facility] [address] [place] [phone] Mary Calderón DO [address], [place] [phone] Scheduled Procedures Name Priority Associated Diagnoses Date/Ti [...] this encounter Medical Devices Implanted Type Area Steam And Power Supervisor Device Identifier Shelf Expiration Date Model / Serial / Lot Port 8fr 1l[address] Infusion St Latexfree Power Implantable - [id number] Implanted:Qty: 1 on 07/07/2023 by Acosta Mathur MD at OR [facility] Left: Chest CR BARD : PERIPHERAL VASCULAR [id number] 05/04/2024 [id number] / / [id number] Stent Axios [id number] - [id number] Implanted:Qty: 1 on 08/11/2023 by Jayashree Alston MD at OR [facility] [employer] : ENDOSCOPY [id number] 06/19/2025 [id number] / / [id number] Stent Biliary Adult L30mm Dia1 - [id number] Implanted:Qty: 1 on 08/11/2023 by Jayashree Alston MD at OR [facility] COOK : SANDRA MTZ [id number] 06/21/2026 [id number] / / [id number] documented as of this encounter Advance Directives Documents on File Type Date Recorded Patient Bee Breeder Expl reji POLST 08/03/2023 10:10 AM POLST (Morenita dos santos DNR) Latest Code Status on File Code Status Date Activated Date Inactivated Comments Full Code 05/30/2023 10:13 PM 06/03/2023 2:34 PM Th is order reflects the patients wishes and were consensually agreed upon. Question Answer Comments Discussion of Advance Directives occurred with: Patient Care Teams Day Porter Relationship Specialty Start Date End Date Lenora Harding MD [address] [place] [address] PCP - General Family Medicine 12/31/21 documented as of this encounter
[2023-10-02] LABS: Appearance Urine Cloudy (Clear); Basophils # (auto) 0.04 K/uL (0.00-0.20); Basophils % (auto) 0.2 %; Bilirubin Urine 1+ (Negative); Blood Urine 3+ (Negative); Color Urine Red; Eosinophils # (auto) 0.02 K/uL (0.00-0.50); Eosinophils % (auto) 0.1 %; Glucose Urine UA Negative (Negative); Hematocrit (blood only) 27.6 % (42.0-52.0); Immature Granulocytes # (auto) 0.46 K/uL (0.01-0.20); Immature Granulocytes % (auto) 2.4 %; Ketones Urine Negative (Negative); Leukocyte Esterase Urine 1+ (Negative); Lymphocytes # (auto) 1.65 K/uL (1.20-3.40); Lymphocytes % (auto) 8.7 %; Mean Corpuscular Hemoglobin 28.8 pg (25.0-34.0); Mean Corpuscular Hgb Conc 32.6 g/dL (32.0-36.0); Mean Corpuscular Volume 88.2 fL (80.0-100.0); Mean Platelet Volume 9.4 fL (9.4-12.4); Monocytes # (auto) 2.22 K/uL (0.11-0.59); Monocytes % (auto) 11.7 %; Neutrophils # (auto) 14.65 K/uL (1.40-6.50); Neutrophils % (auto) 76.9 %; Nitrite Urine Negative (Negative); Nucleated RBC # (auto) 0.11 K/uL (0.00-0.12); Nucleated RBC % (auto) 0.6 %; Platelet Count 269 K/uL (130-400); Protein Urine 3+ (Negative); RDW Coefficient of Variation 24.9 % (11.5-14.5); RDW Standard Deviation 65.3 fL (36.4-46.3); Red Blood Count 3.13 M/uL (4.70-6.10); Urobilinogen Urine Negative (Negative); White Blood Count 19.04 K/ul (4.8-10.8)
[2023-10-02 00:12] LABS: Alanine Aminotransferase 24 U/L (7-52); Albumin Globulin Ratio 0.8 (0.9-2); Albumin Level 2.5 gm/dl (3.4-5.0); Alkaline Phosphatase 179 U/L (34-104); Anion Gap 9 (3-11); Aspartate Aminotransferase 44 U/L (13-39); BUN Creatinine Ratio 12.1 (10-20); Bilirubin,Total 1.6 mg/dl (0.2-1.0); Blood Urea Nitrogen 25 mg/dl (6-23); Calcium 7.7 mg/dl (8.6-10.3); Carbon Dioxide 20 mmol/L (21-32); Chloride 111 mmol/L (98-107); Epithelial Cell Urine 0-2 /hpf (0-2); Est GFR (African American) 40.2 ml/min; Est GFR (Non-African American) 34.7 ml/min; Globulin 3.2 gm/dl (2.5-4.0); Glucose 113 mg/dl (70-99(Fasting)); Magnesium 1.8 mg/dl (1.7-2.4); Potassium 4.3 mmol/L (3.5-5.1); RBC Urine >20 /hpf (0-2); Sodium 140 mmol/L (136-145); Total Protein 5.7 gm/dl (6.0-8.3); WBC Urine >50 /hpf (0-5)
[2023-10-02 00:15] LABS: Bacteria Urine 1+ (None Seen)
[2023-10-02 00:20] LABS: Troponin I High Sensitivity 12.6 pg/ml (0-20)
[2023-10-02 00:24] LABS: Anisocytosis Present; Polychromasia 1+; Tear Drop Cells 1+
[2023-10-02 00:27] LABS: INR 1.2 (0.9-1.1); Partial Thromboplastin Ratio 1.1; Partial Thromboplastin Time 31 Seconds (21-31); Prothrombin Time 13.5 Seconds (9.0-12.0)
[2023-10-02 00:29] LABS: Thyroid Stimulating Hormone 3.158 uIu/ml (0.300-4.500)
[2023-10-02] MEDS: SODIUM CHLORIDE 0.9% 1,000 ML IV SCH ×2 (00:45→06:35)
[2023-10-02] MEDS: LORazepam 1 MG/1 ML SYR ED Inj Use IV STA ×2 (00:45→03:53)
--- NOTE | 2023-10-02 02:10 | CT Scan Report ---
Exam(s): CT ABDOMEN + PELVIS Without Contrast EXAM: CT Abdomen and Pelvis Without Intravenous Contrast CLINICAL HISTORY: Reason for exam: hematuria, ams, recent stent placement. TECHNIQUE: Axial computed tomography images of the abdomen and pelvis without intravenous contrast. CTDI is 133.87 mGy and DLP is 3322.94 mGy-cm. Automated exposure control was utilized for the study. A dose lowering technique was utilized adhering to the principles of ALARA. COMPARISON: 09/17/23 FINDINGS: Lung bases: See below. Pleural space: Increased trace left pleural effusion. Mild groundglass attenuation pneumonia in the lung bases demonstrated. Mediastinum: Small hiatal hernia again noted. ABDOMEN: Liver: Unremarkable. Gallbladder and bile ducts: Metallic common bile duct stent redemonstrated and appears in good position. No significant intrahepatic ductal dilatation. Common bile duct remains mildly dilated, stable. No calcified stones. Pancreas: Unremarkable. No ductal dilation. Spleen: Unremarkable. No splenomegaly. Adrenals: Unremarkable. No mass. Kidneys and ureters: Interval placement of bilateral double-J ureteral stents which appear in good position. In the proximal right ureter, small, 4 mm calculus adjacent to the stent demonstrated. There is no hydronephrosis or perinephric fluid collection. Stomach and bowel: Unremarkable. No obstruction. Distal gastric stent redemonstrated, unchanged. PELVIS: Appendix: No findings to suggest acute appendicitis. Bladder: Unremarkable. No stones. Reproductive: Unremarkable as visualized. ABDOMEN and PELVIS: Intraperitoneal space: Increased, small abdominal and pelvic ascites. No free air. Bones/joints: No acute fracture. No dislocation. Soft tissues: Unremarkable. Vasculature: Unremarkable. No abdominal aortic aneurysm. Lymph nodes: Unremarkable. No enlarged lymph nodes. IMPRESSION: 1. Increased, small abdominal and pelvic ascites. 2. Increased trace left pleural effusion. Mild groundglass attenuation pneumonia in the lung bases demonstrated. 3. Interval placement of bilateral double-J ureteral stents which appear in good position. In the proximal right ureter, small, 4 mm calculus adjacent to the stent demonstrated. There is no hydronephrosis or perinephric fluid collection. Electronically signed by: Caesar Maynard MD 10/02/23 02:09 AM
[2023-10-02] MEDS: CEFEPIME 2,000 MG/20 ML VIAL IV STA (02:27)
--- NOTE | 2023-10-02 02:54 | CT Scan Report ---
Exam(s): CT HEAD Without Contrast EXAM: CT Head Without Intravenous Contrast CLINICAL HISTORY: Reason for exam: ams. TECHNIQUE: Axial computed tomography images of the head/brain without intravenous contrast. CTDI is 133.87 mGy and DLP is 3322.94 mGy-cm. Automated exposure control was utilized for the study. A dose lowering technique was utilized adhering to the principles of ALARA. COMPARISON: No comparison made to prior CT scan of the head from September 17, 2023. FINDINGS: The study is limited secondary to motion artifact. Brain: There is a remote ischemic injury of the right frontal lobe with encephalomalacia and gliosis. No hemorrhage. No significant white matter disease. No edema. Ventricles: Mild ventriculomegaly. Bones/joints: Unremarkable. No acute fracture. Soft tissues: Unremarkable. Sinuses: Unremarkable as visualized. No acute sinusitis. Mastoid air cells: Unremarkable as visualized. No mastoid effusion. IMPRESSION: No evidence of acute intracranial pathology in this limited study. Electronically signed by: Tammie Lux MD 10/02/23 02:53 AM
--- NOTE | 2023-10-02 02:57 | Emergency Department Note ---
Impression & Plan AMS (altered mental status), Hematuria, NATE (acute kidney injury), Elevated procalcitonin, Acute UTI (urinary tract infection) ED Provider Note ED Provider Note NAME: CONNER FLYNN AGE:58 SEX: Male : 1965 ARRIVES VIA: EMS INFORMANT: ED PROVIDER(s): Shawna Castillo DO CHIEF COMPLAINT: Confused HPI: This is a 58-year-old male brought in by EMS with at bedside who provides most of the history due to patient's confusion. states patient first began being confused last night however he did sleep overnight. This morning he was still confused and this worsened throughout the day. She states he seemed more agitated and restless and continues to say "help". Patient with recent admission and placement of ureteral stents due to finding of kidney stones. She states he was just discharged on . She states he has still been taking his medications as prescribed. Patient with chronic left-sided weakness due to prior significant CVA, and also has a known diagnosis of pancreatic cancer. She states no recent falls or injuries. She states he had minimal to eat or drink today and is also concern for dehydration. She denies noting any fevers or chills. Patient otherwise did not appear to have any pain. PAST MEDICAL HISTORY:See Below PAST SURGICAL HISTORY:See Below FAMILY HISTORY:See Below SOCIAL HISTORY:See Below HOME MEDICATIONS:See Below ALLERGIES:See Below VITALS:See Below PHYSICAL EXAMINATION: GENERAL: alert, unwell appearing, well nourished, restless, rolls in bed and states "help" EYE EXAM: normal conjunctiva, PERRL and EOM's grossly intact OROPHARYNX: no exudate, no erythema, lips, buccal mucosa, and tongue normal and mucous membranes are dry NECK: supple, no nuchal rigidity, no adenopathy, non-tender LUNGS: Clear to auscultation. Normal chest wall mechanics, no w/r/r HEART: no murmurs, S1 normal and S2 normal ABDOMEN: abdomen soft, non-tender, normo-active bowel sounds, no masses, no rebound or guarding. BACK: Back is symmetrical on inspection and there is no deformity SKIN: no rashes, petechiae, orbruising UPPER EXTREMITIES: upper extremities are grossly normal. FROM, nml pulses b/l. LOWER EXTREMITIES: No pitting edema. FROM, nml pulses b/l. NEURO EXAM: Confused, cranial nerves II-XII grossly intact, normal speech, no facial droop,would not cooperate for other neuro testing Vital Signs: reviewed and remarkable Differential Diagnosis: dehydration, stroke, anemia, hypoglycemia, hyponatremia, hypernatremia, urinary tract infection, pneumonia, bronchitis, sepsis, gastroenteritis, additional abdominal pathology, metabolic abnormalities, as well as others were considered MEDICAL DECISION MAKING: This is a 58-year-old male who presents via EMS with due to concern for altered mental status. Patient with recent admission and placement of ureteral stents. Patient with prior significant CVA and also currently being treated for pancreatic cancer. Patient unable to provide history, history obtained via . He was afebrile and vital signs stable on arrival. Labs drawn and sent, IV established, EKG and chest ray performed bedside interpreted me and patient monitored on telemetry. He was started on IV fluids, urine collected and sent but was grossly bloody, and EMR regarding recent mission reviewed. Patient sent for CT head and CT abdomen and pelvis. Patient noted to have leukocytosis although improved compared to prior. Procalcitonin eventually resulted elevated as well, and so blood cultures and IV antibiotics were added. Patient was maintained on IV fluids and did receive a total of 30 mill/KG on the emergency department based on actual body weight. Eventually CTs were reviewed and reassuring. Given concern for increased risk of infection due to recent procedure, I suspect patient's altered mentation more likely metabolic encephalopathy. No evidence of other acute pathology on CT head. Case discussed with hospitalist team for additional evaluation and management. Consultation(s): 0312: Discussed with Dr. Lucas for additional evaluation and mgmt. ER Treatment Provided: See below Diagnostics Interpreted By Me: -ECG: Normal sinus at 75, normal axis, normal intervals, no acute ST/T wave changes -Cardiac Monitoring: An order was placed for continuous cardiac monitoring. The monitor shows a rate of 78 with normal sinus rhythm. -Laboratory studies: As stated above and show below. -Imaging studies: X-ray Chest: A single view study of the chest was reviewed and was negative for cardiomegaly, focal infiltrate, effusion, pulmonary edema, or wide mediastinum. Port noted. Triage Nursing Note Reviewed Prior/Outside Records Reviewed -discharge summary from 3 days ago reviewed Past Med/Surg History Medical History Palliative care by specialist Advanced care planning/counseling discussion Diarrhea Severe muscle deconditioning Weakness generalized Cancer related pain DMII (diabetes mellitus, type 2) Anxiety History of tobacco use Focal dystonia Benign meningioma of brain Left hemiplegia Left spastic hemiparesis Adhesive capsulitis of left shoulder 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 Fatty liver Obesity Arteriosclerosis of coronary artery CAD (coronary artery disease) Cerebral atherosclerosis HTN (hypertension) Carotid stenosis, symptomatic, with infarction Hyperlipidemia Surgical History S/P tonsillectomy and adenoidectomy S/P carotid endarterectomy Family History Mother Diabetes Social History Smoking Status: Never smoker Hx Alcohol Use: No Hx Substance Use: No Preferred Language: Tuvaluan Communication Ability: Effective Amusement Or Recreation Card Checker Required: No Beliefs That Will Affect Care: None marital status: Current Living Situation: Spouse Current Living Situation Comment: lives at home with current occupational status: disabled Feels Safe at Home: Yes Safety Concerns: Feels Safe At This Time Assistive Devices: Walker, Wheelchair and Other Allergies Allergies Allergy/AdvReac Type Severity Reaction Status Date / Time No Known Allergies Allergy Verified 10/02/23 00:17 Home Meds Home Medications Medication Instructions Recorded Confirmed baclofen 10 mg tablet 15 mg PO QID 05/29/23 10/02/23 clopidogrel 75 mg tablet 75 mg PO DAILY 05/29/23 10/02/23 ezetimibe 10 mg tablet 10 mg PO DAILY 05/29/23 10/02/23 fluoxetine 40 mg capsule 40 mg PO DAILY 05/29/23 10/02/23 folic acid 1 mg tablet 1 mg PO DAILY 05/29/23 10/02/23 metoprolol tartrate 50 mg tablet 50 mg PO DAILY 05/29/23 10/02/23 thiamine HCl (vitamin B1) 100 mg 100 mg PO DAILY 05/29/23 10/02/23 tablet acetaminophen 500 mg tablet 500 mg PO DIRECTED PRN 07/27/23 10/02/23 (Tylenol Extra Strength) PAIN/FEVER diphenhydramine HCl 25 mg capsule 25 mg PO Q6H PRN Itching 07/27/23 10/02/23 (Benadryl) insulin glargine 100 unit/mL (3 10 unit subcut QAM 07/27/23 10/02/23 mL) subcutaneous pen (Lantus Solostar U-100 Insulin) metformin 500 mg tablet,extended 500 mg PO BID 07/27/23 10/02/23 release 24 hr oxycodone 5 mg tablet 5 mg PO Q6H PRN Pain 07/27/23 10/02/23 aspirin 81 mg tablet,delayed 81 mg PO DAILY 10/02/23 10/02/23 release lidocaine-prilocaine 2.5 %-2.5 % 1 applic topical DIRECTED PRN 10/02/23 10/02/23 topical cream FOR PORT ACCESS/COVER AFTER SCOTT losartan 50 mg tablet 50 mg PO QAM 10/02/23 10/02/23 ondansetron HCl 8 mg tablet 8 mg PO Q8H PRN NAUSEA/VOMITING 10/02/23 10/02/23 prochlorperazine maleate 10 mg 10 mg PO Q6H PRN NAUSEA/VOMITING 10/02/23 10/02/23 tablet Previous Rx's Medication Instructions Recorded pantoprazole 40 mg tablet,delayed 40 mg PO BID #60 tabs 07/31/23 release (Protonix) Results & Data (ED) Vital Signs Vital Signs - 24 hr 10/01/23 22:25 10/01/23 22:25 10/01/23 22:25 Temperature 36.3 C L Temperature Source Axillary Pulse Rate 72 Pulse Rate [Apical] 72 Pulse Rate from SpO2 Sensor Pulse Rhythm Regular Pulse Rhythm [Apical] Pulse Strength [Apical] Respiratory Rate 18 18 Respiratory Effort / Characteristics Non-Labored Respiratory Depth Normal Respiratory Pattern Regular Blood Pressure 157/100 H Blood Pressure [Right Arm] 157/100 H Blood Pressure Mean 119 Blood Pressure Mean [Right Arm] 119 Blood Pressure Position [Right Arm] Pulse Oximetry 98 98 98 Oxygen Delivery Method Room Air Room Air Room Air Sepsis Recent Fever Within 48 Hours No Sepsis New/Unexplained Change in Mental Status Yes Sepsis Action Taken by Nursing No Action Required 10/01/23 22:25 10/01/23 23:31 10/02/23 00:00 Temperature Temperature Source Pulse Rate 74 74 Pulse Rate [Apical] Pulse Rate from SpO2 Sensor Pulse Rhythm Pulse Rhythm [Apical] Pulse Strength [Apical] Respiratory Rate 21 20 Respiratory Effort / Characteristics Respiratory Depth Respiratory Pattern Blood Pressure 168/102 H 147/89 H Blood Pressure [Right Arm] Blood Pressure Mean 124 108 Blood Pressure Mean [Right Arm] Blood Pressure Position [Right Arm] Pulse Oximetry Oxygen Delivery Method Sepsis Recent Fever Within 48 Hours Sepsis New/Unexplained Change in Mental Status Sepsis Action Taken by Nursing 10/02/23 01:00 10/02/23 01:30 10/02/23 02:15 Temperature Temperature Source Pulse Rate 68 Pulse Rate [Apical] 65 74 Pulse Rate from SpO2 Sensor 67 Pulse Rhythm Pulse Rhythm [Apical] Regular Regular Pulse Strength [Apical] Normal Respiratory Rate 17 17 18 Respiratory Effort / Characteristics Non-Labored Spontaneous Respiratory Depth Normal Respiratory Pattern Regular Blood Pressure 101/55 L Blood Pressure [Right Arm] 89/56 L 112/67 Blood Pressure Mean 70 Blood Pressure Mean [Right Arm] 67 82 Blood Pressure Position [Right Arm] Lying Pulse Oximetry 98 95 95 Oxygen Delivery Method Room Air Room Air Sepsis Recent Fever Within 48 Hours Sepsis New/Unexplained Change in Mental Status Sepsis Action Taken by Nursing Laboratory Data 10/02/23 07:13 10/02/23 07:13 Lab Results 10/01/23 10/01/23 10/02/23 Range/Units 22:53 23:30 01:06 WBC 19.04 H (4.8-10.8) K/ul RBC 3.13 L (4.70-6.10) M/uL Hgb 9.0 L (14.0-18.0) g/dl Hct 27.6 L (42.0-52.0) % MCV 88.2 (80.0-100.0) fL MCH 28.8 (25.0-34.0) pg MCHC 32.6 (32.0-36.0) g/dL RDW Std Deviation 65.3 H (36.4-46.3) fL RDW Coeff of Bess 24.9 H (11.5-14.5) % Plt Count 269 (130-400) K/uL MPV 9.4 (9.4-12.4) fL Immature Gran % (Auto) 2.4 % Neut % (Auto) 76.9 % Lymph % (Auto) 8.7 % [place] % (Auto) 11.7 % Eos % (Auto) 0.1 % Baso % (Auto) 0.2 % Neut # (Auto) 14.65 H (1.40-6.50) K/uL Lymph # (Auto) 1.65 (1.20-3.40) K/uL Whitley # (Auto) 2.22 H (0.11-0.59) K/uL Eos # (Auto) 0.02 (0.00-0.50) K/uL Baso # (Auto) 0.04 (0.00-0.20) K/uL Immature Gran # (Auto) 0.46 H (0.01-0.20) K/uL Absolute Nucleated RBC 0.11 (0.00-0.12) K/uL Nucleated RBC % (auto) 0.6 % Polychromasia 1+ Anisocytosis Present Tear Drop Cells 1+ PT 13.5 H (9.0-12.0) Seconds INR 1.2 H (0.9-1.1) APTT 31 (21-31) Seconds PTT Ratio 1.1 Sodium 140 (136-145) mmol/L Potassium 4.3 (3.5-5.1) mmol/L Chloride 111 H (98-107) mmol/L Carbon Dioxide 20 L (21-32) mmol/L Anion Gap 9 (3-11) BUN 25 H (6-23) mg/dl Creatinine 2.06 H (0.6-1.4) mg/dl Est Cr Clr Drug Dosing Not Reportable Est GFR ( Amer) 40.2 ml/min Est GFR (Non-Af Amer) 34.7 ml/min BUN/Creatinine Ratio 12.1 (10-20) Glucose 113 H (70-99(Fasting)) mg/dl POC Glucose 107 H (70-99) mg/dl Lactate 1.8 (0.4-2.0) mmol/L Calcium 7.7 L (8.6-10.3) mg/dl Magnesium 1.8 (1.7-2.4) mg/dl Total Bilirubin 1.6 H (0.2-1.0) mg/dl AST 44 H (13-39) U/L ALT 24 (7-52) U/L Alkaline Phosphatase 179 H (34-104) U/L Troponin I High Sens 12.6 (0-20) pg/ml Total Protein 5.7 L (6.0-8.3) gm/dl Albumin 2.5 L (3.4-5.0) gm/dl Globulin 3.2 (2.5-4.0) gm/dl Albumin/Globulin Ratio 0.8 L (0.9-2) Procalcitonin 1.04 H (0-0.5) ng/ml TSH 3.158 (0.300-4.500) uIu/ml Urine Color Red Urine Appearance Cloudy A (Clear) Urine pH 6.0 (4.5-7.5) Ur Specific [place] 1.020 (1.000-1.030) Urine Protein 3+ H (Negative) Urine Glucose (UA) Negative (Negative) Urine Ketones Negative (Negative) Urine Blood 3+ H (Negative) Urine Nitrite Negative (Negative) Urine Bilirubin 1+ H (Negative) Urine Urobilinogen Negative (Negative) Ur Leukocyte Esterase 1+ H (Negative) Urine RBC >20 H (0-2) /hpf Urine WBC >50 H (0-5) /hpf Ur Epithelial Cells 0-2 (0-2) /hpf Urine Bacteria 1+ H (None Seen) Administered Medications Aspirin (Aspirin 81 Mg Ectab) 81 mg PO DAILY [facility] Stop: 11/01/23 08:59 Last Admin: 10/02/23 10:18 Dose: Not Given Documented By: MEGAN Baclofen (Baclofen 10 Mg Tab) 15 mg PO QID [facility] Stop: 11/01/23 08:59 Last Admin: 10/02/23 20:43 Dose: 15 mg Documented By: Admin: 10/02/23 17:12 Dose: 15 mg Documented By: Admin: 10/02/23 12:45 Dose: Not Given Documented By: Admin: 10/02/23 10:18 Dose: Not Given Documented By: MEGAN Clopidogrel Bisulfate (Clopidogrel Bisulfate 75 Mg Tab) 75 mg PO DAILY [facility] Stop: 11/01/23 08:59 Last Admin: 10/02/23 10:18 Dose: Not Given Documented By: MEGAN Ezetimibe (Ezetimibe 10 Mg Tab) 10 mg PO DAILY [facility] Stop: 11/01/23 08:59 Last Admin: 10/02/23 10:19 Dose: Not Given Documented By: MEGAN Fluoxetine HCl (Fluoxetine Hcl 20 Mg Cap) 40 mg PO DAILY [facility] Stop: 11/01/23 08:59 Last Admin: 10/02/23 10:19 Dose: Not Given Documented By: MEGAN Folic Acid (Folic Acid 1 Mg Tab) 1 mg PO DAILY [facility] Stop: 11/01/23 08:59 Last Admin: 10/02/23 10:19 Dose: Not Given Documented By: MEGAN Heparin Sodium (Porcine) (Heparin Sod 5,000 Unit/0.5 Ml Vial) 5,000 units SQ Q8 [facility] Stop: 11/01/23 05:59 Last Admin: 10/02/23 21:27 Dose: 5,000 units Documented By: Admin: 10/02/23 14:53 Dose: 5,000 units Documented By: Admin: 10/02/23 06:32 Dose: 5,000 units Documented By: EDA Sodium Chloride (Nss) 1,000 mls @ 125 mls/hr IV .Q8H [facility] Stop: 11/01/23 05:52 Last Admin: 10/03/23 03:14 Dose: 125 mls/hr Documented By: Infusion: 10/03/23 01:48 Dose: Infused Documented By: Admin: 10/02/23 17:48 Dose: 125 mls/hr Documented By: Infusion: 10/02/23 14:35 Dose: Infused Documented By: Admin: 10/02/23 06:35 Dose: 125 mls/hr Documented By: EDA Cefepime HCl 2,000 mg/ Syringe 20 mls @ 5 mls/min IV Q12H [facility]; Protocol Stop: 10/12/23 17:59 Last Admin: 10/02/23 17:13 Dose: 5 mls/min Documented By: MEGAN Vancomycin HCl 1,000 mg/ (Sodium Chloride) 270 mls @ 200 mls/hr IV Q24H [facility] Stop: 10/09/23 17:59 Last Infusion: 10/02/23 19:10 Dose: Infused Documented By: Admin: 10/02/23 17:48 Dose: 200 mls/hr Documented By: MEGAN Insulin Aspart (Insulin Aspart Per Unit Charge) 0 units SC Q6 [facility] Stop: 11/01/23 05:59 Last Admin: 10/03/23 00:07 Dose: Not Given Documented By: Admin: 10/02/23 17:35 Dose: Not Given Documented By: Admin: 10/02/23 12:49 Dose: Not Given Documented By: Admin: 10/02/23 06:37 Dose: Not Given Documented By: EDA Insulin Glargine (Lantus Per Unit Charge) 5 units SQ DAILY [facility] Stop: 11/01/23 08:59 Last Admin: 10/02/23 09:38 Dose: Not Given Documented By: MEGAN Lidocaine (Lidocaine 5% 1 Patch) 1 patch TD QAM [facility] Stop: 11/01/23 14:59 Last Admin: 10/02/23 15:56 Dose: 1 patch Documented By: MEGAN Metoprolol Tartrate (Metoprolol Tartrate 50 Mg Tab) 50 mg PO DAILY [facility] Stop: 11/01/23 08:59 Last Admin: 10/02/23 10:19 Dose: Not Given Documented By: MEGAN Miscellaneous (Remove Lidoderm Patch) 1 each N/A DAILY@2100 [facility] Stop: 11/01/23 20:59 Last Admin: 10/02/23 20:44 Dose: 1 each Documented By: ELIANE Pantoprazole Sodium (Pantoprazole 40 Mg Tab) 40 mg PO BID [facility] Stop: 11/01/23 08:59 Last Admin: 10/02/23 20:43 Dose: 40 mg Documented By: Admin: 10/02/23 10:19 Dose: Not Given Documented By: MEGAN Thiamine HCl (Thiamine Hcl 100 Mg Tab) 100 mg PO DAILY [facility] Stop: 11/01/23 08:59 Last Admin: 10/02/23 10:19 Dose: Not Given Documented By: MEGAN Discontinued Medications Sodium Chloride (Nss) 1,000 mls @ 250 mls/hr IV .Q4H [facility] Stop: 11/01/23 00:14 Last Infusion: 10/02/23 06:08 Dose: Infused Documented By: Admin: 10/02/23 03:49 Dose: 250 mls/hr Documented By: Infusion: 10/02/23 03:49 Dose: Infused Documented By: Admin: 10/02/23 00:45 Dose: 250 mls/hr Documented By: JODIE Cefepime HCl (Maxipime) 2,000 mg in 20 mls @ 5 mls/min IV NOW STA; Protocol Stop: 10/02/23 02:15 Last Admin: 10/02/23 02:27 Dose: 5 mls/min Documented By: HB Sodium Chloride (Nss) 1,000 mls @ 999 mls/hr IV .Q1H1M ONE Stop: 10/02/23 04:15 Last Infusion: 10/02/23 06:08 Dose: Infused Documented By: Admin: 10/02/23 03:49 Dose: 999 mls/hr Documented By: RADHA Vancomycin HCl 1,500 mg/ (Sodium Chloride) 530 mls @ 200 mls/hr IV NOW STA Stop: 10/02/23 08:39 Last Infusion: 10/02/23 09:11 Dose: Infused Documented By: Admin: 10/02/23 06:32 Dose: 200 mls/hr Documented By: EDA Lorazepam 0.25 mg/ Syringe 0.25 mls @ 2 mls/min IV NOW STA Stop: 10/02/23 06:07 Last Admin: 10/02/23 23:56 Dose: Not Given Documented By: ELIANE Lorazepam (Lorazepam 1 Mg/1 Ml Syr Ed Inj Use) 0.5 mg IV ONE STA Stop: 10/02/23 00:06 Last Admin: 10/02/23 00:45 Dose: 0.5 mg Documented By: JODIE Lorazepam (Lorazepam 1 Mg/1 Ml Syr Ed Inj Use) 0.5 mg IV NOW STA Stop: 10/02/23 03:30 Last Admin: 10/02/23 03:53 Dose: 0.5 mg Documented By: RADHA Imaging Data Radiologist's Impression: Abdomen/Pelvis CT 10/02/23 00:05 Exam(s): CT ABDOMEN + PELVIS Without Contrast EXAM: CT Abdomen and Pelvis Without Intravenous Contrast CLINICAL HISTORY: Reason for exam: hematuria, ams, recent stent placement. TECHNIQUE: Axial computed tomography images of the abdomen and pelvis without intravenous contrast. CTDI is 133.87 mGy and DLP is 3322.94 mGy-cm. Automated exposure control was utilized for the study. A dose lowering technique was utilized adhering to the principles of ALARA. COMPARISON: 09/17/23 FINDINGS: Lung bases: See below. Pleural space: Increased trace left pleural effusion. Mild groundglass attenuation pneumonia in the lung bases demonstrated. Mediastinum: Small hiatal hernia again noted. ABDOMEN: Liver: Unremarkable. Gallbladder and bile ducts: Metallic common bile duct stent redemonstrated and appears in good position. No significant intrahepatic ductal dilatation. Common bile duct remains mildly dilated, stable. No calcified stones. Pancreas: Unremarkable. No ductal dilation. Spleen: Unremarkable. No splenomegaly. Adrenals: Unremarkable. No mass. Kidneys and ureters: Interval placement of bilateral double-J ureteral stents which appear in good position. In the proximal right ureter, small, 4 mm calculus adjacent to the stent demonstrated. There is no hydronephrosis or perinephric fluid collection. Stomach and bowel: Unremarkable. No obstruction. Distal gastric stent redemonstrated, unchanged. PELVIS: Appendix: No findings to suggest acute appendicitis. Bladder: Unremarkable. No stones. Reproductive: Unremarkable as visualized. ABDOMEN and PELVIS: Intraperitoneal space: Increased, small abdominal and pelvic ascites. No free air. Bones/joints: No acute fracture. No dislocation. Soft tissues: Unremarkable. Vasculature: Unremarkable. No abdominal aortic aneurysm. Lymph nodes: Unremarkable. No enlarged lymph nodes. IMPRESSION: 1. Increased, small abdominal and pelvic ascites. 2. Increased trace left pleural effusion. Mild groundglass attenuation pneumonia in the lung bases demonstrated. 3. Interval placement of bilateral double-J ureteral stents which appear in good position. In the proximal right ureter, small, 4 mm calculus adjacent to the stent demonstrated. There is no hydronephrosis or perinephric fluid collection. Electronically signed by: Caesar Maynard MD 10/02/23 02:09 AM Discharge Plan Visit Data Chief Complaint: Altered Mental Status Stated Complaint: ALTERED MENTAL STATUS, NOT EATING/DRINKING ED Provider: Shawna Castillo Discharge Problem: AMS (altered mental status), Hematuria, NATE (acute kidney injury), Elevated procalcitonin, Acute UTI (urinary tract infection) Patient Disposition: Admitted As Inpatient Discharge Instructions Interventions: ED Discharge Assessment Last Done: 10/02/23 05:23
[2023-10-02] MEDS ORDERED: LORazepam 0.5 MG in SYRINGE 0.25 ML IV STA (03:22)
[2023-10-02] MEDS: SODIUM CHLORIDE 0.9% 1,000 ML IV ONE (03:49)
--- NOTE | 2023-10-02 04:51 | History & Physical Report ---
Date of Service October 02, 2023 Assessment & Plan (1) AMS (altered mental status): Plan: 58-year-old male with past med history significant for CVA with left hemiplegia, diabetes mellitus type 2, pancreatic cancer metastasized to the liver, CAD, hypertension, Recent hospitalization from 07/28/2023 to 07/31/2023 for acute cholecystitis and required 2 PRBC during that admission, status post EUS guided GB drainage and Axios stent placement on 08/11/2023, and again was recently in the hospital for NATE and ureterolithiasis and pancolitis and patient was s/p cystoscopy with bilateral stent insertion on September 17, 2023 was treated with 7- day course of IV Zosyn and during that admission he also had hematuria, confusion and pancytopenia thought to be from chemo, received Neupogen, s/p platelets transfusion for transient epistaxis, s/p 3 units of PRBCs hemoglobin was stable and his aspirin was held but Plavix was restarted and was discharged on September 28, 2022 was brought in by his today because of altered mental status. Patient seems confused since last night and in the morning also was getting confused and confusion getting progressively worse so was brought to the hospital. Patient was restless in the ER and received Ativan and currently very drowsy. Could not get a get history from the patient. Tried to call the and could not reach her currently. Hemodynamics are okay. Altered mental status Most likely metabolic encephalopathy from UTI Empirically placed on cefepime and vanco Will follow the cultures CT head is okay CT abd/pelvis ureteral stents in place Possible pneumonia on ct abd/pevis will get ct chest urology consult iv fluids npo for now will monitor Follow cultures NATE Creatinine 2.06 Creatinine was 1.3 on September 27 Getting fluids Avoid nephrotoxic agents If worsening will consult nephrology Seems losartan was DC'd last admission but still on med rec Anemia Hemoglobin 9 Will follow Required PRBC transfusion last admission Seems aspirin was stopped last admission but still on med rec Pancreatic cancer Follow-up with heme-onc Elevated LFTs mostly for metastatic cancer Monitor LFTs Hypertension Continue metoprolol succinate Holding losartan Will monitor Diabetes Hold metformin Reduce Lantus to 5 units daily as patient currently n.p.o. Sliding scale Will monitor DVT prophylaxis Heparin subcu CODE STATUS Was DNR last admission. But could not reach . Will keep him full code until discussed with the History of Present Illness Chief Complaint: Altered mental status Primary Care Provider: Mati Sanabria MD 58-year-old male with past med history significant for CVA with left hemiplegia, diabetes mellitus type 2, pancreatic cancer metastasized to the liver, CAD, hypertension, Recent hospitalization from 07/28/2023 to 07/31/2023 for acute cholecystitis and required 2 PRBC during that admission, status post EUS guided GB drainage and Axios stent placement on 08/11/2023, and again was recently in the hospital for NATE and ureterolithiasis and pancolitis and patient was s/p cystoscopy with bilateral stent insertion on September 17, 2023 was treated with 7- day course of IV Zosyn and during that admission he also had hematuria, confusion and pancytopenia thought to be from chemo, received Neupogen, s/p platelets transfusion for transient epistaxis, s/p 3 units of PRBCs hemoglobin was stable and his aspirin was held but Plavix was restarted and was discharged on September 28, 2022 was brought in by his today because of altered mental status. Patient seems confused since last night and in the morning also was getting confused and confusion getting progressively worse so was brought to the hospital. Patient was restless in the ER and received Ativan and currently very drowsy. Could not get a get history from the patient. Tried to call the and could not reach her currently. Hemodynamics are okay. Past medical history. As mentioned above Past surgical history. S/p tonsillectomy adenoidectomy. S/p carotid endarterectomy. Social history. No smoking. Simply drinks alcohol 4-5 beers daily per previous H&P. No substance abuse. Family history. Mother had diabetes Allergies Allergy/AdvReac Type Severity Reaction Status Date / Time No Known Allergies Allergy Verified 10/02/23 00:17 Home Medications Medication Instructions Recorded Confirmed Type baclofen 10 mg tablet 15 mg PO QID 05/29/23 10/02/23 History clopidogrel 75 mg tablet 75 mg PO DAILY 05/29/23 10/02/23 History ezetimibe 10 mg tablet 10 mg PO DAILY 05/29/23 10/02/23 History fluoxetine 40 mg capsule 40 mg PO DAILY 05/29/23 10/02/23 History folic acid 1 mg tablet 1 mg PO DAILY 05/29/23 10/02/23 History metoprolol tartrate 50 mg tablet 50 mg PO DAILY 05/29/23 10/02/23 History thiamine HCl (vitamin B1) 100 mg 100 mg PO DAILY 05/29/23 10/02/23 History tablet acetaminophen 500 mg tablet 500 mg PO DIRECTED PRN 07/27/23 10/02/23 History (Tylenol Extra Strength) PAIN/FEVER diphenhydramine HCl 25 mg capsule 25 mg PO Q6H PRN Itching 07/27/23 10/02/23 History (Benadryl) insulin glargine 100 unit/mL (3 10 unit subcut QAM 07/27/23 10/02/23 History mL) subcutaneous pen (Lantus Solostar U-100 Insulin) metformin 500 mg tablet,extended 500 mg PO BID 07/27/23 10/02/23 History release 24 hr oxycodone 5 mg tablet 5 mg PO Q6H PRN Pain 07/27/23 10/02/23 History pantoprazole 40 mg tablet,delayed 40 mg PO BID #60 tabs 07/31/23 10/02/23 Rx release (Protonix) aspirin 81 mg tablet,delayed 81 mg PO DAILY 10/02/23 10/02/23 History release lidocaine-prilocaine 2.5 %-2.5 % 1 applic topical DIRECTED PRN 10/02/23 10/02/23 History topical cream FOR PORT ACCESS/COVER AFTER SCOTT losartan 50 mg tablet 50 mg PO QAM 10/02/23 10/02/23 History ondansetron HCl 8 mg tablet 8 mg PO Q8H PRN NAUSEA/VOMITING 10/02/23 10/02/23 History prochlorperazine maleate 10 mg 10 mg PO Q6H PRN NAUSEA/VOMITING 10/02/23 10/02/23 History tablet Past Med/Surg History Medical History Palliative care by specialist Advanced care planning/counseling discussion Diarrhea Severe muscle deconditioning Weakness generalized Cancer related pain DMII (diabetes mellitus, type 2) Anxiety History of tobacco use Focal dystonia Benign meningioma of brain Left hemiplegia Left spastic hemiparesis Adhesive capsulitis of left shoulder 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 Fatty liver Obesity Arteriosclerosis of coronary artery CAD (coronary artery disease) Cerebral atherosclerosis HTN (hypertension) Carotid stenosis, symptomatic, with infarction Hyperlipidemia Surgical History S/P tonsillectomy and adenoidectomy S/P carotid endarterectomy Family History Mother Diabetes Social History Smoking Status: Never smoker Hx Alcohol Use: No Hx Substance Use: No Preferred Language: Armenian Communication Ability: Impaired Lock Expert Required: No Beliefs That Will Affect Care: None marital status: Current Living Situation: Spouse Current Living Situation Comment: lives at home with current occupational status: disabled Feels Safe at Home: Yes Safety Concerns: Feels Safe At This Time Assistive Devices: Brace/Splint/Immobilizer, Cane and Wheelchair Review of Systems Review of Systems: Unobtainable due to reduced consciousness Physical Exam Physical Exam: General- Drowsy. Head- atraumatic Eyes- PERRL. Lungs- clear to auscultation no wheezing or crackles Heart- regular rhythm; no murmur, no gallop. Abdomen- normal bowel sounds, soft, no distension Extremities- no pretibial edema, no erythema Neuro-Drowsy. Not responding to touch or painful stimuli Results & Data Results & Data Vital Signs (Past 12 Hours) Vital Signs Temp Pulse Pulse Resp BP BP Pulse Ox 10/02/23 04:00 72 18 160/80 H 95 10/02/23 02:15 74 18 112/67 95 10/02/23 01:30 65 17 89/56 L 95 10/02/23 01:00 68 17 101/55 L 98 10/02/23 00:00 74 20 147/89 H 10/01/23 23:31 21 168/102 H 10/01/23 22:25 74 10/01/23 22:25 72 18 157/100 H 98 10/01/23 22:25 98 10/01/23 22:25 36.3 C L 72 18 157/100 H 98 O2 Del Method 10/02/23 04:00 Room Air 10/02/23 02:15 Room Air 10/02/23 01:30 Room Air 10/02/23 01:00 10/02/23 00:00 10/01/23 23:31 10/01/23 22:25 10/01/23 22:25 Room Air 10/01/23 22:25 Room Air 10/01/23 22:25 Room Air Diagnostic Findings Laboratory Results WBC 19.04 K/ul (4.8-10.8) H 10/01/23 23:30 RBC 3.13 M/uL (4.70-6.10) L 10/01/23 23:30 Hgb 9.0 g/dl (14.0-18.0) L 10/01/23 23:30 Hct 27.6 % (42.0-52.0) L 10/01/23 23:30 MCV 88.2 fL (80.0-100.0) 10/01/23 23: MCH 28.8 pg (25.0-34.0) 10/01/23 23: MCHC 32.6 g/dL (32.0-36.0) 10/01/23 23:30 RDW Std Deviation 65.3 fL (36.4-46.3) H 10/01/23 23:30 RDW Coeff of Bess 24.9 % (11.5-14.5) H 10/01/23 23:30 Plt Count 269 K/uL (130-400) 10/01/23 23:30 MPV 9.4 fL (9.4-12.4) 10/01/23 23:30 Immature Gran % (Auto) 2.4 % 10/01/23 23:30 Neut % (Auto) 76.9 % 10/01/23 23:30 Lymph % (Auto) 8.7 % 10/01/23 23:30 Hopkins % (Auto) 11.7 % 10/01/23 23:30 Eos % (Auto) 0.1 % 10/01/23 23:30 Baso % (Auto) 0.2 % 10/01/23 23:30 Neut # (Auto) 14.65 K/uL (1.40-6.50) H 10/01/23 23:30 Lymph # (Auto) 1.65 K/uL (1.20-3.40) 10/01/23 23:30 Hopkins # (Auto) 2.22 K/uL (0.11-0.59) H 10/01/23 23:30 Eos # (Auto) 0.02 K/uL (0.00-0.50) 10/01/23 23:30 Baso # (Auto) 0.04 K/uL (0.00-0.20) 10/01/23 23:30 Immature Gran # (Auto) 0.46 K/uL (0.01-0.20) H 10/01/23 23:30 Absolute Nucleated RBC 0.11 K/uL (0.00-0.12) 10/01/23 23:30 Nucleated RBC % (auto) 0.6 % 10/01/23 23:30 Polychromasia 1+ 10/01/23 23:30 Anisocytosis Present 10/01/23 23:30 Tear Drop Cells 1+ 10/01/23 23:30 PT 13.5 Seconds (9.0-12.0) H 10/01/23 23:30 INR 1.2 (0.9-1.1) H 10/01/23 23:30 APTT 31 Seconds (21-31) 10/01/23 23:30 PTT Ratio 1.1 10/01/23 23:30 Sodium 140 mmol/L (136-145) 10/01/23 23:30 Potassium 4.3 mmol/L (3.5-5.1) 10/01/23 23:30 Chloride 111 mmol/L (98-107) H 10/01/23 23:30 Carbon Dioxide 20 mmol/L (21-32) L 10/01/23 23:30 Anion Gap 9 (3-11) 10/01/23 23:30 BUN 25 mg/dl (6-23) H 10/01/23 23:30 Creatinine 2.06 mg/dl (0.6-1.4) H 10/01/23 23:30 Est Cr Clr Drug Dosing Not Reportable 10/01/23 23:30 Est GFR ( Amer) 40.2 ml/min 10/01/23 23:30 Est GFR (Non-Af Amer) 34.7 ml/min 10/01/23 23:30 BUN/Creatinine Ratio 12.1 (10-20) 10/01/23 23:30 Glucose 113 mg/dl (70-99(Fasting)) H 10/01/23 23:30 POC Glucose 107 mg/dl (70-99) H 10/01/23 22:53 Lactate 1.8 mmol/L (0.4-2.0) 10/02/23 01:06 Calcium 7.7 mg/dl (8.6-10.3) L 10/01/23 23:30 Magnesium 1.8 mg/dl (1.7-2.4) 10/01/23 23:30 Total Bilirubin 1.6 mg/dl (0.2-1.0) H 10/01/23 23:30 AST 44 U/L (13-39) H 10/01/23 23:30 ALT 24 U/L (7-52) 10/01/23 23:30 Alkaline Phosphatase 179 U/L (34-104) H 10/01/23 23:30 Troponin I High Sens 12.6 pg/ml (0-20) 10/01/23 23:30 Total Protein 5.7 gm/dl (6.0-8.3) L 10/01/23 23:30 Albumin 2.5 gm/dl (3.4-5.0) L 10/01/23 23: Globulin 3.2 gm/dl (2.5-4.0) 10/01/23 23:30 Albumin/Globulin Ratio 0.8 (0.9-2) L 10/01/23 23:30 Procalcitonin 1.04 ng/ml (0-0.5) H 10/02/23 01:06 TSH 3.158 uIu/ml (0.300-4.500) 10/01/23 23:30 Urine Color Red 10/01/23 23:30 Urine Appearance Cloudy (Clear) A 10/01/23 23:30 Urine pH 6.0 (4.5-7.5) 10/01/23 23:30 Ur Specific Blanchard 1.020 (1.000-1.030) 10/01/23 23:30 Urine Protein 3+ (Negative) H 10/01/23 23:30 Urine Glucose (UA) Negative (Negative) 10/01/23 23: Urine Ketones Negative (Negative) 10/01/23 23:30 Urine Blood 3+ (Negative) H 10/01/23 23:30 Urine Nitrite Negative (Negative) 10/01/23 23: Urine Bilirubin 1+ (Negative) H 10/01/23 23:30 Urine Urobilinogen Negative (Negative) 10/01/23 23:30 Ur Leukocyte Esterase 1+ (Negative) H 10/01/23 23:30 Urine RBC >20 /hpf (0-2) H 10/01/23 23:30 Urine WBC >50 /hpf (0-5) H 10/01/23 23:30 Ur Epithelial Cells 0-2 /hpf (0-2) 10/01/23 23:30 Urine Bacteria 1+ (None Seen) H 10/01/23 23:30 Impressions Abdomen/Pelvis CT 10/02/23 00:05 Exam(s): CT ABDOMEN + PELVIS Without Contrast EXAM: CT Abdomen and Pelvis Without Intravenous Contrast CLINICAL HISTORY: Reason for exam: hematuria, ams, recent stent placement. TECHNIQUE: Axial computed tomography images of the abdomen and pelvis without intravenous contrast. CTDI is 133.87 mGy and DLP is 3322.94 mGy-cm. Automated exposure control was utilized for the study. A dose lowering technique was utilized adhering to the principles of ALARA. COMPARISON: 09/17/23 FINDINGS: Lung bases: See below. Pleural space: Increased trace left pleural effusion. Mild groundglass attenuation pneumonia in the lung bases demonstrated. Mediastinum: Small hiatal hernia again noted. ABDOMEN: Liver: Unremarkable. Gallbladder and bile ducts: Metallic common bile duct stent redemonstrated and appears in good position. No significant intrahepatic ductal dilatation. Common bile duct remains mildly dilated, stable. No calcified stones. Pancreas: Unremarkable. No ductal dilation. Spleen: Unremarkable. No splenomegaly. Adrenals: Unremarkable. No mass. Kidneys and ureters: Interval placement of bilateral double-J ureteral stents which appear in good position. In the proximal right ureter, small, 4 mm calculus adjacent to the stent demonstrated. There is no hydronephrosis or perinephric fluid collection. Stomach and bowel: Unremarkable. No obstruction. Distal gastric stent redemonstrated, unchanged. PELVIS: Appendix: No findings to suggest acute appendicitis. Bladder: Unremarkable. No stones. Reproductive: Unremarkable as visualized. ABDOMEN and PELVIS: Intraperitoneal space: Increased, small abdominal and pelvic ascites. No free air. Bones/joints: No acute fracture. No dislocation. Soft tissues: Unremarkable. Vasculature: Unremarkable. No abdominal aortic aneurysm. Lymph nodes: Unremarkable. No enlarged lymph nodes. IMPRESSION: 1. Increased, small abdominal and pelvic ascites. 2. Increased trace left pleural effusion. Mild groundglass attenuation pneumonia in the lung bases demonstrated. 3. Interval placement of bilateral double-J ureteral stents which appear in good position. In the proximal right ureter, small, 4 mm calculus adjacent to the stent demonstrated. There is no hydronephrosis or perinephric fluid collection. Electronically signed by: Caesar Maynard MD 10/02/23 02:[address] 10/02/23 00:05 Exam(s): CT HEAD Without Contrast EXAM: CT Head Without Intravenous Contrast CLINICAL HISTORY: Reason for exam: ams. TECHNIQUE: Axial computed tomography images of the head/brain without intravenous contrast. CTDI is 133.87 mGy and DLP is 3322.94 mGy-cm. Automated exposure control was utilized for the study. A dose lowering technique was utilized adhering to the principles of ALARA. COMPARISON: No comparison made to prior CT scan of the head from September 17, 2023. FINDINGS: The study is limited secondary to motion artifact. Brain: There is a remote ischemic injury of the right frontal lobe with encephalomalacia and gliosis. No hemorrhage. No significant white matter disease. No edema. Ventricles: Mild ventriculomegaly. Bones/joints: Unremarkable. No acute fracture. Soft tissues: Unremarkable. Sinuses: Unremarkable as visualized. No acute sinusitis. Mastoid air cells: Unremarkable as visualized. No mastoid effusion. IMPRESSION: No evidence of acute intracranial pathology in this limited study. Electronically signed by: Tammie Lux MD 10/02/23 02:53 AM ECG Additional Comments: ECG. Sinus rhythm with short CT at rate of 75. No significant change was found. Code Status & VTE Plan VTE Prophylaxis Plan VTE Prophylaxis will be ordered: Yes
[2023-10-02] MEDS ORDERED: GLUCOSE 10 TAB/TUBE PO PRN (05:53)
[2023-10-02] MEDS ORDERED: oxyCODONE HCL IR 5 MG TAB (IMMEDIATE RELEASE) PO PRN (05:53)
[2023-10-02] MEDS ORDERED: VANCOMYCIN CONSULT ACTIVE PRN (05:53)
[2023-10-02] MEDS ORDERED: DEXTROSE 50% 50 ML SYRINGE IV PRN (05:53)
[2023-10-02] MEDS ORDERED: NITROGLYCERIN SL 0.4 MG/TAB TAB SL PRN (05:53)
[2023-10-02] MEDS ORDERED: ACETAMINOPHEN 325 MG TAB PO PRN (05:53)
[2023-10-02] MEDS ORDERED: CARBOHYDRATES FOR HYPOGLYCEMIA PO PRN (05:53)
[2023-10-02] MEDS ORDERED: LIDOCAINE/PRILOCAINE 2.5% EA CRM EXT PRN (05:53)
[2023-10-02] MEDS ORDERED: GLUCAGON FOR INJ 1 MG VIAL SQ PRN (05:53)
[2023-10-02] MEDS ORDERED: GLUCOSE 40% GEL 15 GM TUBE PO PRN (05:53)
[2023-10-02] MEDS ORDERED: POLYETHYLENE (MIRALAX) 17 GM PACK PO PRN (05:53)
[2023-10-02] MEDS ORDERED: VANCOMYCIN HCL 1,000 MG in SODIUM CHLORIDE 0.9% 250 ML IV SCH (05:53)
[2023-10-02] MEDS ORDERED: diphenhydrAMINE Capsule 25 MG CAP PO PRN (05:53)
[2023-10-02] MEDS: HEPARIN SOD 5,000 UNIT/0.5 ML VIAL SQ SCH (06:32)
[2023-10-02] MEDS: VANCOMYCIN HCL 1,500 MG in SODIUM CHLORIDE 0.9% 500 ML IV STA (06:32)
[2023-10-02] MEDS: INSULIN ASPART PER UNIT CHARGE SC SCH (06:37)
--- NOTE | 2023-10-02 07:07 | XRay Report ---
XR chest 1V portable HISTORY: 58 years-old Male Weakness COMPARISON: Chest radiograph 07/27/2023, CT abdomen and pelvis 10/02/2023. TECHNIQUE: AP view of the chest FINDINGS: Cardiomediastinal and hilar silhouettes are unchanged. Trace left pleural effusion. Ill-defined subse gmental midlung and bibasilar opacities. Left IJ Fqttxy-p-Werr catheter distal tip projects in expect ed location of the mid SVC. No pneumothorax or overt pulmonary edema. The bones of the chest appear g rossly intact. IMPRESSION: 1. Subtle ill-defined bibasilar predominant opacities may represent atelectasis versus a nonspecific infectious or inflammatory pneumonitis. 2. Trace left pleural effusion. ACT 112: Negative or not required by law. The above report was generated using voice recognition software. It may contain grammatical, syntax o r spelling errors. Electronically signed by: Randy Mukherjee M.D. 10/02/2023 7:06 AM
[2023-10-02 07:28] LABS: Basophils # (auto) 0.05 K/uL (0.00-0.20); Basophils % (auto) 0.3 %; Hematocrit (blood only) 28.7 % (42.0-52.0); Hemoglobin 8.9 g/dl (14.0-18.0); Immature Granulocytes # (auto) 0.37 K/uL (0.01-0.20); Immature Granulocytes % (auto) 2.3 %; Lymphocytes # (auto) 1.48 K/uL (1.20-3.40); Mean Corpuscular Hemoglobin 28.3 pg (25.0-34.0); Mean Corpuscular Volume 91.4 fL (80.0-100.0); Mean Platelet Volume 10.1 fL (9.4-12.4); Monocytes % (auto) 13.4 %; Neutrophils # (auto) 12.27 K/uL (1.40-6.50); Nucleated RBC # (auto) 0.08 K/uL (0.00-0.12); Nucleated RBC % (auto) 0.5 %; Platelet Count 247 K/uL (130-400); RDW Coefficient of Variation 25.4 % (11.5-14.5); Red Blood Count 3.14 M/uL (4.70-6.10); White Blood Count 16.37 K/ul (4.8-10.8)
[2023-10-02 07:45] LABS: BUN Creatinine Ratio 12.6 (10-20); Calcium 7.4 mg/dl (8.6-10.3); Creatinine Clr Calc Pharmacy 43.4 ml/min; Est GFR (Non-African American) 36.2 ml/min; Magnesium 1.8 mg/dl (1.7-2.4); Potassium 4.6 mmol/L (3.5-5.1)
[2023-10-02 07:51] LABS: Anisocytosis Present; Polychromasia 1+
[2023-10-02 07:59] LABS: Estimated Average Glucose 131 mg/dl; Hemoglobin A1C 6.2 % (4.5-5.6)
--- NOTE | 2023-10-02 08:40 | Pharmacy Report ---
Pharmacy PK ABX Note - Date of Service October 02, 2023 - Assessment and Plan Assessment 58 year old M admitted with AMS. PMHx significant for CVA with left hemiplegia, DM2, pancreatic cancer metastasized to liver, recent hospitalizations - most recently 09/16 s/p cystoscopy with bilateral stent insertion. Vancomycin and cefepime started for concerns for pneumonia/UTI. CXR with trace pleural effusions, pelvis CT negative for perinephritic fluid, small pelvic/abd ascites noted, head CT negative. Blood cultures and urine cultures pending. Plan Vancomycin * Loading dose: 1500 mg IV x 1 * Maintenance dose: 1000 mg IV every 24 hours * Regimen is predicted to achieve target AUC/LUBA of 400-600 mg/L.hr * Plan to collect random vancomycin level if continued > 48 hours or sooner if renal function changes. Of note, Scr elevated on admission from baseline. Pharmacy will continue to follow and will adjust dose/frequency as necessary. Thank you. Pharmacy has transitioned to AUC monitoring for vancomycin. AUC/LUBA is the preferred PK/PD target and is associated with decreased risk of nephrotoxicity compared to traditional trough targets.
[2023-10-02] MEDS: LANTUS PER UNIT CHARGE SQ SCH (09:38)
[2023-10-02] MEDS: CLOPIDOGREL BISULFATE 75 MG TAB PO SCH (10:18)
[2023-10-02] MEDS: ASPIRIN 81 MG ECTAB PO SCH (10:18)
[2023-10-02] MEDS: BACLOFEN 10 MG TAB PO SCH (10:18)
[2023-10-02] MEDS: THIAMINE HCL 100 MG TAB PO SCH (10:19)
[2023-10-02] MEDS: METOPROLOL TARTRATE 50 MG TAB PO SCH (10:19)
[2023-10-02] MEDS: PANTOprazole 40 MG TAB PO SCH (10:19)
[2023-10-02] MEDS: FOLIC ACID 1 MG TAB PO SCH (10:19)
[2023-10-02] MEDS: FLUoxetine HCL 20 MG CAP PO SCH (10:19)
[2023-10-02] MEDS: EZETIMIBE 10 MG TAB PO SCH (10:19)
--- NOTE | 2023-10-02 12:57 | Electrocardiogram Report ---
Test Reason : Blood Pressure : / mmHG Vent. Rate : 075 BPM Atrial Rate : 075 BPM P-R Int : 110 ms QRS Dur : 080 ms QT Int : 424 ms P-R-T Axes : -25 054 050 degrees QTc Int : 473 ms Sinus rhythm with short CA Otherwise normal ECG When compared with ECG of 17-SEP-2023 23:10, No significant change was found Confirmed by Marko Walker ([id number]) on 10/02/2023 12:56:53 PM Referred By: REFERRED SELF Confirmed By:Marko Walker
--- NOTE | 2023-10-02 14:16 | CT Scan Report ---
CT chest diagnostic wo con CT DOSE: 731.82 mGy.cm HISTORY: Shortness of breath. pneumonia? TECHNIQUE: Multiaxial CT images of the chest were performed without contrast. A dose lowering techni que was utilized adhering to the principles of ALARA. COMPARISON: Abdomen and pelvis CT 10/02/2023. FINDINGS: Mild respiratory motion artifact. The central airways are patent. No pneumothorax. There is a trace left pleural effusion. The abdominal structures are better appreciated on the same day abdom en and pelvis CT. Ascites, a distal gastric/duodenal stent, and the common bile duct stent are partia lly visualized. Gastric wall thickening consistent with a nonspecific gastritis. There is a tiny hiat us hernia. Otherwise, normal caliber esophagus. Normal thyroid gland. A left jugular Port-A-Cath term inates in the SVC. Mild body wall edema is noted. No mediastinal or hilar lymphadenopathy. Mild calci fied plaque within the normal caliber abdominal aorta. Mild distal paraesophageal edema. Moderate cor onary artery calcifications. The heart is normal in size. There is a trace pericardial effusion. Decr eased blood pool attenuation consistent with underlying anemia. No acute fractures. Punctate calcifie d granuloma within a few tiny nodular densities along the left major fissure. Interstitial thickening with small patchy groundglass densities within the bilateral lower lobes and posterior bilateral upp er lobes. IMPRESSION: 1. Interstitial thickening with small patchy groundglass densities within the bilateral lower lobes a nd posterior upper lobes. This is nonspecific but favors a low-grade pneumonitis. Mild congestive shila nge could also have a similar appearance. 2. Trace left pleural effusion. 3. Partially visualized ascites again noted. 4. Gastric wall thickening consistent with a nonspecific gastritis. 5. Additional findings as described above. ACT 112: Negative or not required by law. Electronically signed by: Keegan Galo M.D. 10/02/2023 2:15 PM
--- NOTE | 2023-10-02 14:48 | Urology Consultation ---
Date of Consultation October 02, 2023 Assessment & Plan (1) UTI (urinary tract infection): (2) NATE (acute kidney injury): (3) Hematuria: (4) AMS (altered mental status): Plan 58yo/M with bilateral ureteral stents in place since 09/17/2023 admitted with altered mental status, suspected UTI, NATE, possible pneumonia. Afebrile and hemodynamically stable at present. Labs today reviewedWBC 16.37, hemoglobin 8.9, creatinine 1.99. Urine and blood cultures pending. He is on empiric cefepime and Vanco. Nevarez intact and draining pink urine. CT A/P reviewed- Bilateral ureteral stents in position, 4 mm proximal right ureteral stone, no hydronephrosis or perinephric fluid collection No plan for intervention. There should be maximum decompression of the urinary tract with bilateral ureteral stents in position and Nevarez catheter in place. Suspect hematuria is related to stent irritation and possible UTI on anticoagulation Maintain Nevarez catheter and monitor urine output. Okay to hand irrigate as needed for clots, retention, suprapubic pain. Continue supportive care. Continue antibiotics and tailor as culture data becomes available. Continue to trend labs. Urology will follow along. Plan reviewed with Dr. Treviño, on-call urologist. History of Present Illness Attending Physician: Dalton Ching MD History of Present Illness 58-year-old male with past med history significant for CVA with left hemiplegia, diabetes mellitus type 2, pancreatic cancer metastasized to the liver, CAD, hypertension who presented to the ED on 10/02/23 with altered mental status and admitted to medicine service with suspected UTI, NATE, possible pneumonia. Of note, patient was recently admitted and found to have bilateral obstructing stones and underwent bilateral ureteral stent placement on 09/17/[address] Ortega. He was discharged home on 09/29/2023. On arrival he was afebrile and hemodynamically stable. Labs showing a white count of 19, hemoglobin 9, and creatinine 2.06. Urinalysis with 3+ blood, negative nitrite, 1+ LE, 1+ bacteria. CT abdomen pelvis 1. Increased, small abdominal and pelvic ascites. 2. Increased trace left pleural effusion. Mild groundglass attenuation pneumonia in the lung bases demonstrated. 3. Interval placement of bilateral double-J ureteral stents which appear in good position. In the proximal right ureter, small, 4 mm calculus adjacent to the stent demonstrated. There is no hydronephrosis or perinephric fluid collection. Patient examined at bedside this AM. Asleep at time of exam. Awakened briefly to name. No acute distress. Patient's mother at bedside. Nevarez draining pink urine without clot. Patient's mother reports that since his discharge, he has had poor appetite and oral intake. He became increasingly confused at home which prompted their arrival in the ED. Allergies Allergy/AdvReac Type Severity Reaction Status Date / Time No Known Allergies Allergy Verified 10/02/23 00:17 Home Medications Medication Instructions Recorded Confirmed Type baclofen 10 mg tablet 15 mg PO QID 05/29/23 10/02/23 History clopidogrel 75 mg tablet 75 mg PO DAILY 05/29/23 10/02/23 History ezetimibe 10 mg tablet 10 mg PO DAILY 05/29/23 10/02/23 History fluoxetine 40 mg capsule 40 mg PO DAILY 05/29/23 10/02/23 History folic acid 1 mg tablet 1 mg PO DAILY 05/29/23 10/02/23 History metoprolol tartrate 50 mg tablet 50 mg PO DAILY 05/29/23 10/02/23 History thiamine HCl (vitamin B1) 100 mg 100 mg PO DAILY 05/29/23 10/02/23 History tablet acetaminophen 500 mg tablet 500 mg PO DIRECTED PRN 07/27/23 10/02/23 History (Tylenol Extra Strength) PAIN/FEVER diphenhydramine HCl 25 mg capsule 25 mg PO Q6H PRN Itching 07/27/23 10/02/23 History (Benadryl) insulin glargine 100 unit/mL (3 10 unit subcut QAM 07/27/23 10/02/23 History mL) subcutaneous pen (Lantus Solostar U-100 Insulin) metformin 500 mg tablet,extended 500 mg PO BID 07/27/23 10/02/23 History release 24 hr oxycodone 5 mg tablet 5 mg PO Q6H PRN Pain 07/27/23 10/02/23 History pantoprazole 40 mg tablet,delayed 40 mg PO BID #60 tabs 07/31/23 10/02/23 Rx release (Protonix) aspirin 81 mg tablet,delayed 81 mg PO DAILY 10/02/23 10/02/23 History release lidocaine-prilocaine 2.5 %-2.5 % 1 applic topical DIRECTED PRN 10/02/23 10/02/23 History topical cream FOR PORT ACCESS/COVER AFTER SCOTT losartan 50 mg tablet 50 mg PO QAM 10/02/23 10/02/23 History ondansetron HCl 8 mg tablet 8 mg PO Q8H PRN NAUSEA/VOMITING 10/02/23 10/02/23 History prochlorperazine maleate 10 mg 10 mg PO Q6H PRN NAUSEA/VOMITING 10/02/23 10/02/23 History tablet Patient History Medical History Palliative care by specialist Advanced care planning/counseling discussion Diarrhea Severe muscle deconditioning Weakness generalized Cancer related pain DMII (diabetes mellitus, type 2) Anxiety History of tobacco use Focal dystonia Benign meningioma of brain Left hemiplegia Left spastic hemiparesis Adhesive capsulitis of left shoulder 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 Fatty liver Obesity Arteriosclerosis of coronary artery CAD (coronary artery disease) Cerebral atherosclerosis HTN (hypertension) Carotid stenosis, symptomatic, with infarction Hyperlipidemia Surgical History S/P tonsillectomy and adenoidectomy S/P carotid endarterectomy Family History Mother Diabetes Social History Smoking Status: Never smoker Hx Alcohol Use: No Hx Substance Use: No Preferred Language: Occitan Communication Ability: Effective Body Painter Required: No Beliefs That Will Affect Care: None marital status: Current Living Situation: Spouse Current Living Situation Comment: lives at home with current occupational status: disabled Feels Safe at Home: Yes Safety Concerns: Feels Safe At This Time Assistive Devices: Walker, Wheelchair and Other Review of Systems Review of Systems: Unobtainable due to cognitive status Physical Exam Constitutional: + ill appearing and + altered mental sta tus; no acute distress Neck: normal visual inspection Respiratory: no respiratory distress and no labored breathing Musculoskeletal: Head/Neck/Chest: normocephalic Psychiatric: Asleep on arrival. Awakened briefly to name. Genitourinary: Nevarez intact, draining pink urine without clot Results & Data Vital Signs (Past 12 Hours) Vital Signs Temp Pulse Pulse Resp BP BP Pulse Ox 10/02/23 08:09 36.5 C 92 H 18 148/87 H 99 10/02/23 06:13 10/02/23 05:44 36.3 C L 83 20 141/62 H 94 10/02/23 04:00 72 18 160/80 H 95 10/02/23 02:15 74 18 112/67 95 10/02/23 01:30 65 17 89/56 L 95 10/02/23 01:00 68 17 101/55 L 98 10/02/23 00:00 74 20 147/89 H 10/01/23 23:31 21 168/102 H O2 Del Method 10/02/23 08:09 Room Air 10/02/23 06:13 Room Air 10/02/23 05:44 Room Air 10/02/23 04:00 Room Air 10/02/23 02:15 Room Air 10/02/23 01:30 Room Air 10/02/23 01:00 10/02/23 00:00 10/01/23 23:31 PG Care Time/CCT Total # of Minutes Spent Total Time Spent with Patient: Total time spent is greater than 50% in coordination of care (as documented) at patient's floor/unit and/or counseling patient: Coding Level of Care Code 85455 IN/OBS CONSULT LVL 4,60M Diagnoses UTI (urinary tract infection) N39.0 NATE (acute kidney injury) N17.9 Hematuria R31.9 AMS (altered mental status) R41.82
[2023-10-02] MEDS: LIDOCAINE 5% 1 PATCH TD SCH (15:56)
--- NOTE | 2023-10-02 16:20 | Hospitalist Progress Note ---
Date of Service October 02, 2023 Assessment & Plan (1) AMS (altered mental status): Plan: 58-year-old male with past med history significant for CVA with left hemiplegia, diabetes mellitus type 2, pancreatic cancer metastasized to the liver, CAD, hypertension, Recent hospitalization from 07/28/2023 to 07/31/2023 for acute cholecystitis and required 2 PRBC during that admission, status post EUS guided GB drainage and Axios stent placement on 08/11/2023, and again was recently in the hospital for NATE and ureterolithiasis and pancolitis and patient was s/p cystoscopy with bilateral stent insertion on September 17, 2023 was treated with 7- day course of IV Zosyn and during that admission he also had hematuria, confusion and pancytopenia thought to be from chemo, received Neupogen, s/p platelets transfusion for transient epistaxis, s/p 3 units of PRBCs hemoglobin was stable and his aspirin was held but Plavix was restarted and was discharged on September 28, 2022 was brought in by his today because of altered mental status. Patient seems confused since last night and in the morning also was getting confused and confusion getting progressively worse so was brought to the hospital. Patient was restless in the ER and received Ativan and currently very drowsy. Could not get a get history from the patient. Tried to call the and could not reach her currently. Hemodynamics are okay. Acute metabolic encephalopathy Secondary to complicated UTI Complicated by advanced pancreatic cancer Empirically placed on cefepime and vanco Will follow the cultures CT head is okay CT abd/pelvis ureteral stents in place Possible pneumonia on ct abd/pevis will get ct chest-possible low-grade pneumonitis Appreciate urology input and recommendation for no intervention Has been getting gentle IV fluid Not being able to swallow Will plan for further intervention may be tomorrow on some improvement Advanced pancreatic cancer with metastasis Follow-up with heme-onc Elevated LFTs-secondary to metastasis Not a candidate for chemotherapy Has had palliative care evaluation during last admission and wanted to have oncology evaluation and treatment of possible Will discussed for possible comfort care down the line NATE Creatinine 2.06 Creatinine was 1.3 on September 27 Getting fluids Avoid nephrotoxic agents If worsening will consult nephrology Seems losartan was DC'd last admission but still on med rec Will monitor PRP in the kidney function is minimally improved at creatinine 1.99 Anemia Hemoglobin 9 Will follow Required PRBC transfusion last admission Seems aspirin was stopped last admission but still on med rec Hypertension Continue metoprolol succinate Holding losartan Will monitor Diabetes Hold metformin Reduce Lantus to 5 units daily as patient currently n.p.o. Sliding scale Will monitor DVT prophylaxis Heparin subcu CODE STATUS Was DNR last admission. But could not reach . Will keep him full code until discussed with the Discussed with the family members Patient is made DNR as per his prior wish in which of the family members Admission and Anticipated Discharge Date Admission Date: October 02, 2023 Subjective 10/02/2023 The patient was seen and examined in telemetry unit in presence of the family members He was admitted early this morning and has been asking for help but cannot define what kind of help Complains of pain at the lower back Not in any acute distress He has not been eating or drinking at home Review of Systems Review of Systems: Unobtainable due to cognitive status Physical Exam Physical Exam: Lying in bed without any acute distress Constitutional: + ill appearing and average body habitus Eyes: PERRL, conjunctivae normal, anicteric sclerae ENMT: external ear and nose normal, oropharynx normal Neck: trachea midline, no thyromegaly Respiratory: no respiratory distress Auscultation: + diminished lung sounds; no crackles Cardiovascular: Rate/Rhythm: regular rate and regular rhythm; not tachycardic Heart Sounds: normal S1 and normal S2; no murmur Extremities: no edema Gastrointestinal (Abdomen): Inspection/Auscultation: + abdomen distended (Mildly distended) and normal bowel sounds Percussion/Palpation: + abdomen tender (Mildly tender in the epigastrium) and abdomen soft Musculoskeletal: No acute arthritis involving any of the joint Neurologic: Very weak and lethargic. Not willing to talk. Moving all extremities Lymphatic: no cervical or axillary lymphadenopathy Results & Data Results & Data Vital Signs (Past 12 Hours) Vital Signs Temp Pulse Pulse Resp BP Pulse Ox O2 Del Method 10/02/23 15:07 94 H 10/02/23 11:50 36.3 C L 89 18 133/76 99 Room Air 10/02/23 10:00 Room Air 10/02/23 08:09 36.5 C 92 H 18 148/87 H 99 Room Air 10/02/23 08:00 70 10/02/23 06:13 Room Air 10/02/23 05:44 36.3 C L 83 20 141/62 H 94 Room Air Laboratory Results Short CBC 10/01/23 10/02/23 Range/Units 23:30 07:13 WBC 19.04 H 16.37 H (4.8-10.8) K/ul Hgb 9.0 L 8.9 L (14.0-18.0) g/dl Hct 27.6 L 28.7 L (42.0-52.0) % Plt Count 269 247 (130-400) K/uL BMP 10/01/23 10/02/23 23:30 07:13 Sodium 140 142 Potassium 4.3 4.6 Chloride 111 H 116 H Carbon Dioxide 20 L 20 L BUN 25 H 25 H Creatinine 2.06 H 1.99 H Glucose 113 H 94 Calcium 7.7 L 7.4 L Liver Function 10/01/23 Range/Units 23:30 Total Bilirubin 1.6 H (0.2-1.0) mg/dl AST 44 H (13-39) U/L ALT 24 (7-52) U/L Alkaline Phosphatase 179 H (34-104) U/L Albumin 2.5 L (3.4-5.0) gm/dl Urine 10/01/23 Range/Units 23:30 Urine Color Red Urine Appearance Cloudy A (Clear) Urine pH 6.0 (4.5-7.5) Ur Specific [place] 1.020 (1.000-1.030) Urine Protein 3+ H (Negative) Urine Glucose (UA) Negative (Negative) Medications Administered Current Inpatient Medications Acetaminophen (Acetaminophen 325 Mg Tab) 650 mg PO Q4H PRN PRN Reason: Pain or Fever Stop: 11/01/23 05:52 Aspirin (Aspirin 81 Mg Ectab) 81 mg PO DAILY K[facility]AN Stop: 11/01/23 08:59 Last Admin: 10/02/23 10:18 Dose: Not Given Baclofen (Baclofen 10 Mg Tab) 15 mg PO QID K[facility]AN Stop: 11/01/23 08:59 Last Admin: 10/02/23 12:45 Dose: Not Given Clopidogrel Bisulfate (Clopidogrel Bisulfate 75 Mg Tab) 75 mg PO DAILY [facility]AN Stop: 11/01/23 08:59 Last Admin: 10/02/23 10:18 Dose: Not Given Dextrose (Dextrose 50% 50 Ml Syringe) 25 - 50 ml IV UD PRN; Protocol PRN Reason: Hypoglycemia Protocol Stop: 11/01/23 05:52 Diphenhydramine HCl (Diphenhydramine Capsule 25 Mg Cap) 25 mg PO Q6H PRN PRN Reason: Itching Stop: 11/01/23 05:52 Ezetimibe (Ezetimibe 10 Mg Tab) 10 mg PO DAILY K[facility]AN Stop: 11/01/23 08:59 Last Admin: 10/02/23 10:19 Dose: Not Given Fluoxetine HCl (Fluoxetine Hcl 20 Mg Cap) 40 mg PO DAILY [facility]AN Stop: 11/01/23 08:59 Last Admin: 10/02/23 10:19 Dose: Not Given Folic Acid (Folic Acid 1 Mg Tab) 1 mg PO DAILY [facility] Stop: 11/01/23 08:59 Last Admin: 10/02/23 10:19 Dose: Not Given Glucagon (Glucagon For Inj 1 Mg Vial) 1 mg SQ UD PRN; Protocol PRN Reason: Hypoglycemia Protocol Stop: 11/01/23 05:52 Glucose (Glucose 40% Gel 15 Gm Tube) 15 - 30 gm PO UD PRN; Protocol PRN Reason: Hypoglycemia Protocol Stop: 11/01/23 05:52 Glucose (Glucose 10 Tab/Tube) 4 - 8 tab PO UD PRN; Protocol PRN Reason: Hypoglycemia Treatment Stop: 11/01/23 05:52 Heparin Sodium (Porcine) (Heparin Sod 5,000 Unit/0.5 Ml Vial) 5,000 units SQ Q8 [facility] Stop: 11/01/23 05:59 Last Admin: 10/02/23 14:53 Dose: 5,000 units Sodium Chloride (Nss) 1,000 mls @ 125 mls/hr IV .Q8H [facility] Stop: 11/01/23 05:52 Last Admin: 10/02/23 06:35 Dose: 125 mls/hr Cefepime HCl 2,000 mg/ Syringe 20 mls @ 5 mls/min IV Q12H [facility]; Protocol Stop: 10/12/23 17:59 Vancomycin HCl 1,000 mg/ (Sodium Chloride) 270 mls @ 200 mls/hr IV Q24H [facility] Stop: 10/09/23 17:59 Insulin Aspart (Insulin Aspart Per Unit Charge) 0 units SC Q6 [facility] Stop: 11/01/23 05:59 Last Admin: 10/02/23 12:49 Dose: Not Given Insulin Glargine (Lantus Per Unit Charge) 5 units SQ DAILY [facility] Stop: 11/01/23 08:59 Last Admin: 10/02/23 09:38 Dose: Not Given Lidocaine (Lidocaine 5% 1 Patch) 1 patch TD QAM [facility] Stop: 11/01/23 14:59 Last Admin: 10/02/23 15:56 Dose: 1 patch Lidocaine/Prilocaine (Lidocaine/Prilocaine 2.5% Ea Crm) 1 each EXT DAILY PRN PRN Reason: FOR PORT ACCESS/COVER AFTER AP Stop: 11/01/23 05:52 Metoprolol Tartrate (Metoprolol Tartrate 50 Mg Tab) 50 mg PO DAILY [facility] Stop: 11/01/23 08:59 Last Admin: 10/02/23 10:19 Dose: Not Given Miscellaneous (Carbohydrates For Hypoglycemia ) 15 - 30 gm PO UD PRN PRN Reason: Hypoglycemia Protocol Stop: 11/01/23 05:52 Miscellaneous (Remove Lidoderm Patch) 1 each N/A DAILY@2100 [facility] Stop: 11/01/23 20:59 Miscellaneous Information (Vancomycin Consult Active) 1 each N/A UD PRN PRN Reason: Consult Stop: 11/01/23 05:52 Nitroglycerin (Nitroglycerin Sl 0.4 Mg/Tab Tab) 0.4 mg SL Q5M PRN PRN Reason: Chest Pain Stop: 11/01/23 05:52 Oxycodone HCl (Oxycodone Hcl Ir 5 Mg Tab (Immediate Release)) 5 mg PO Q6H PRN PRN Reason: Pain Stop: 10/16/23 05:52 Pantoprazole Sodium (Pantoprazole 40 Mg Tab) 40 mg PO BID [facility] Stop: 11/01/23 08:59 Last Admin: 10/02/23 10:19 Dose: Not Given Polyethylene Glycol (Polyethylene (Miralax) 17 Gm Pack) 17 gm PO DAILY PRN PRN Reason: Constipation Stop: 11/01/23 05:52 Thiamine HCl (Thiamine Hcl 100 Mg Tab) 100 mg PO DAILY [facility] Stop: 11/01/23 08:59 Last Admin: 10/02/23 10:19 Dose: Not Given
[2023-10-02] MEDS: CEFEPIME 2,000 MG in SYRINGE 0 ML IV SCH (17:13)
[2023-10-02] MEDS: VANCOMYCIN HCL 1,000 MG in SODIUM CHLORIDE 0.9% 250 ML IV SCH (17:48)
[2023-10-02] MEDS: LORazepam 0.25 MG in SYRINGE 0.125 ML IV STA (23:56)
[2023-10-03 07:29] LABS: Basophils # (auto) 0.06 K/uL (0.00-0.20); Basophils % (auto) 0.3 %; Eosinophils # (auto) 0.01 K/uL (0.00-0.50); Eosinophils % (auto) 0.1 %; Hematocrit (blood only) 26.9 % (42.0-52.0); Hemoglobin 8.5 g/dl (14.0-18.0); Immature Granulocytes # (auto) 0.37 K/uL (0.01-0.20); Immature Granulocytes % (auto) 1.9 %; Lymphocytes % (auto) 7.6 %; Mean Corpuscular Hemoglobin 28.8 pg (25.0-34.0); Mean Corpuscular Hgb Conc 31.6 g/dL (32.0-36.0); Mean Corpuscular Volume 91.2 fL (80.0-100.0); Mean Platelet Volume 9.5 fL (9.4-12.4); Monocytes # (auto) 2.63 K/uL (0.11-0.59); Monocytes % (auto) 13.4 %; Neutrophils # (auto) 15.12 K/uL (1.40-6.50); Neutrophils % (auto) 76.7 %; Nucleated RBC # (auto) 0.06 K/uL (0.00-0.12); Nucleated RBC % (auto) 0.3 %; Platelet Count 292 K/uL (130-400); RDW Coefficient of Variation 26.2 % (11.5-14.5); RDW Standard Deviation 82.2 fL (36.4-46.3); Red Blood Count 2.95 M/uL (4.70-6.10); White Blood Count 19.69 K/ul (4.8-10.8)
[2023-10-03 07:59] LABS: Anisocytosis Present; Polychromasia 2+; Tear Drop Cells 1+
[2023-10-03 08:00] LABS: Albumin Globulin Ratio 0.8 (0.9-2); Albumin Level 2.4 gm/dl (3.4-5.0); Bilirubin,Total 1.4 mg/dl (0.2-1.0); Calcium 7.3 mg/dl (8.6-10.3); Creatinine Clr Calc Pharmacy 44.8 ml/min; Est GFR (African American) 43.5 ml/min; Est GFR (Non-African American) 37.6 ml/min; Magnesium 1.6 mg/dl (1.7-2.4); Phosphorus 4.6 mg/dl (2.5-4.9); Potassium 4.5 mmol/L (3.5-5.1); Total Protein 5.4 gm/dl (6.0-8.3)
--- NOTE | 2023-10-03 08:09 | Urology Progress Note ---
Date of Service October 03, 2023 Assessment & Plan (1) UTI (urinary tract infection): (2) NATE (acute kidney injury): (3) Hematuria: (4) AMS (altered mental status): Plan 58yo/M with bilateral ureteral stents in place since 09/17/2023 admitted with altered mental status, suspected UTI, NATE, possible pneumonia. Afebrile, hypertensive, tachycardic Labs today reviewedWBC 16.37- 19.69 today, hemoglobin 8.5, creatinine 1.99-1.93 today. Urine culture prelim no growth. Blood cultures prelim no growth x 24 hours. He is on empiric cefepime and Vanco. Nevarez intact and draining pink urine without clot. CT A/P reviewed- Bilateral ureteral stents in position, 4 mm proximal right ureteral stone, no hydronephrosis or perinephric fluid collection No plan for intervention. There should be maximum decompression of the urinary tract with bilateral ureteral stents in position and Nevarez catheter in place. Suspect hematuria is related to stent irritation and possible UTI on anticoagulation Maintain Nevarez catheter and monitor urine output. Okay to hand irrigate as needed for clots, retention, suprapubic pain. Continue supportive care. Continue antibiotics and tailor as culture data becomes available. Continue to trend labs. Urology will follow along. Plan reviewed with Dr. Hastings, on-call urologist. Admission and Anticipated Discharge Date Admission Date: October 02, 2023 Subjective Patient seen at bedside this AM. Awake, appears restless. Does not answer questions appropriately or follow commands. Nevarez draining pink urine. No clots visualized. No documented fever. Review of Systems Constitutional: as per Subjective / HPI Genitourinary: + as per Subjective / HPI Physical Exam Constitutional: + ill appearing and + altered mental sta tus; no acute distress Respiratory: no respiratory distress and no labored breathing Neurologic: awake Does not answer questions appropriately or follow commands. Genitourinary: Nevarez intact, draining pink urine without clot Results & Data Vital Signs (Past 12 Hours) Vital Signs Temp Pulse Pulse Resp BP Pulse Ox O2 Del Method 10/03/23 07:45 36.6 C 105 H 20 161/77 H 95 Room Air 10/03/23 05:53 10/03/23 03:32 156/77 H 10/03/23 03:03 37.2 C 117 H 18 193/84 H 92 Room Air 10/02/23 22:36 37.1 C 111 H 18 163/81 H 94 Room Air 10/02/23 21:59 110 H 10/02/23 21:56 Room Air O2 Del Method 10/03/23 07:45 10/03/23 05:53 Room Air 10/03/23 03:32 10/03/23 03:03 10/02/23 22:36 10/02/23 21:59 10/02/23 21:56 PG Care Time/CCT Total # of Minutes Spent Total Time Spent with Patient: Total time spent is greater than 50% in coordination of care (as documented) at patient's floor/unit and/or counseling patient: Coding Level of Care Code 82538 SUB INP/OBS CARE 2/35MIN Diagnoses UTI (urinary tract infection) N39.0 NATE (acute kidney injury) N17.9 Hematuria R31.9 AMS (altered mental status) R41.82
[2023-10-03] MEDS: HYDROmorphone INJ 0.5 MG/0.5 ML SYR IV PRN (11:57)
[2023-10-03] MEDS ORDERED: Nursing to Pharmacy Communication SCH (13:45)
--- NOTE | 2023-10-03 16:14 | Hospitalist Progress Note ---
Date of Service October 03, 2023 Assessment & Plan (1) AMS (altered mental status): Plan: 58-year-old male with past med history significant for CVA with left hemiplegia, diabetes mellitus type 2, pancreatic cancer metastasized to the liver, CAD, hypertension, Recent hospitalization from 07/28/2023 to 07/31/2023 for acute cholecystitis and required 2 PRBC during that admission, status post EUS guided GB drainage and Axios stent placement on 08/11/2023, and again was recently in the hospital for NATE and ureterolithiasis and pancolitis and patient was s/p cystoscopy with bilateral stent insertion on September 17, 2023 was treated with 7- day course of IV Zosyn and during that admission he also had hematuria, confusion and pancytopenia thought to be from chemo, received Neupogen, s/p platelets transfusion for transient epistaxis, s/p 3 units of PRBCs hemoglobin was stable and his aspirin was held but Plavix was restarted and was discharged on September 28, 2022 was brought in by his today because of altered mental status. Patient seems confused since last night and in the morning also was getting confused and confusion getting progressively worse so was brought to the hospital. Patient was restless in the ER and received Ativan and currently very drowsy. Could not get a get history from the patient. Tried to call the and could not reach her currently. Hemodynamics are okay. Acute metabolic encephalopathy Secondary to complicated UTI Complicated by advanced pancreatic cancer Empirically placed on cefepime and vanco Will follow the cultures--blood and urine cultures have been negative CT head is okay CT abd/pelvis ureteral stents in place Possible pneumonia on ct abd/pevis will get ct chest-possible low-grade pneumonitis Appreciate urology input and recommendation for no intervention Has been getting gentle IV fluid Not being able to swallow Will plan for further intervention may be tomorrow on some improvement Clinically not any better Has not been drinking and/or eating Will consult palliative care for goals of care Advanced pancreatic cancer with metastasis Follow-up with heme-onc Elevated LFTs-secondary to metastasis Not a candidate for chemotherapy Has had palliative care evaluation during last admission and wanted to have oncology evaluation and treatment of possible Will discussed for possible comfort care down the line Will consult palliative care NATE Creatinine 2.06 Creatinine was 1.3 on September 27 Getting fluids Avoid nephrotoxic agents If worsening will consult nephrology Seems losartan was DC'd last admission but still on med rec Will monitor PRP in the kidney function is minimally improved at creatinine 1.99 Kidney function remains stable Anemia Hemoglobin 9 Will follow Required PRBC transfusion last admission Seems aspirin was stopped last admission but still on med rec Hypertension Continue metoprolol succinate Holding losartan Will monitor Will give intravenous Lopressor Diabetes Hold metformin Reduce Lantus to 5 units daily as patient currently n.p.o. Sliding scale Will monitor DVT prophylaxis Heparin subcu CODE STATUS Was DNR last admission. But could not reach . Will keep him full code until discussed with the Discussed with the family members Patient is made DNR as per his prior wish in which of the family members Admission and Anticipated Discharge Date Admission Date: October 02, 2023 Subjective 10/02/2023 The patient was seen and examined in telemetry unit in presence of the family members He was admitted early this morning and has been asking for help but cannot define what kind of help Complains of pain at the lower back Not in any acute distress He has not been eating or drinking at home 10/03/2023 The patient was seen and examined in telemetry unit He has been minimally responsive Asking for help but cannot defiant what kind of help he wants Seems to be in pain Not been eating or drinking Review of Systems Review of Systems: Unobtainable due to cognitive status Physical Exam Physical Exam: Lying in bed with some distress and asking for help Constitutional: + ill appearing and average body habitus Eyes: PERRL, conjunctivae normal, anicteric sclerae ENMT: external ear and nose normal, oropharynx normal Neck: trachea midline, no thyromegaly Respiratory: no respiratory distress Auscultation: + diminished lung sounds; no crackles Cardiovascular: Rate/Rhythm: regular rate and regular rhythm; not tachycardic Heart Sounds: normal S1 and normal S2; no murmur Extremities: no edema Gastrointestinal (Abdomen): Inspection/Auscultation: + abdomen distended (Mildly distended) and normal bowel sounds Percussion/Palpation: + abdomen tender (Mildly tender in the epigastrium) and abdomen soft Neurologic: Semiresponsive. Moves all extremities. Extremely lethargic Lymphatic: no cervical or axillary lymphadenopathy Results & Data Results & Data Vital Signs (Past 12 Hours) Vital Signs Temp Pulse Pulse Resp BP Pulse Ox O2 Del Method 10/03/23 15:28 Room Air 10/03/23 14:58 108 H 10/03/23 13:20 Room Air 10/03/23 11:02 36.5 C 117 H 23 165/85 H 98 Room Air 10/03/23 08:00 107 H 10/03/23 08:00 Room Air 10/03/23 07:45 36.6 C 105 H 20 161/77 H 95 Room Air 10/03/23 05:53 O2 Del Method 10/03/23 15:28 10/03/23 14:58 10/03/23 13:20 10/03/23 11:02 10/03/23 08:00 10/03/23 08:00 10/03/23 07:45 10/03/23 05:53 Room Air Laboratory Results Short CBC 10/03/23 Range/Units 05:40 WBC 19.69 H (4.8-10.8) K/ul Hgb 8.5 L (14.0-18.0) g/dl Hct 26.9 L (42.0-52.0) % Plt Count 292 (130-400) K/uL BMP 10/03/23 05:40 Sodium 145 Potassium 4.5 Chloride 119 H Carbon Dioxide 16 L BUN 25 H Creatinine 1.93 H Glucose 119 H Calcium 7.3 L Liver Function 10/03/23 Range/Units 05:40 Total Bilirubin 1.4 H (0.2-1.0) mg/dl AST 39 (13-39) U/L ALT 24 (7-52) U/L Alkaline Phosphatase 153 H (34-104) U/L Albumin 2.4 L (3.4-5.0) gm/dl Medications Administered Current Inpatient Medications Acetaminophen (Acetaminophen 325 Mg Tab) 650 mg PO Q4H PRN PRN Reason: Pain or Fever Stop: 11/01/23 05:52 Aspirin (Aspirin 81 Mg Ectab) 81 mg PO DAILY [facility] Stop: 11/01/23 08:59 Last Admin: 10/03/23 09:05 Dose: Not Given Baclofen (Baclofen 10 Mg Tab) 15 mg PO QID [facility] Stop: 11/01/23 08:59 Last Admin: 10/03/23 16:05 Dose: Not Given Clopidogrel Bisulfate (Clopidogrel Bisulfate 75 Mg Tab) 75 mg PO DAILY [facility] Stop: 11/01/23 08:59 Last Admin: 10/03/23 09:05 Dose: Not Given Dextrose (Dextrose 50% 50 Ml Syringe) 25 - 50 ml IV UD PRN; Protocol PRN Reason: Hypoglycemia Protocol Stop: 11/01/23 05:52 Diphenhydramine HCl (Diphenhydramine Capsule 25 Mg Cap) 25 mg PO Q6H PRN PRN Reason: Itching Stop: 11/01/23 05:52 Ezetimibe (Ezetimibe 10 Mg Tab) 10 mg PO DAILY [facility] Stop: 11/01/23 08:59 Last Admin: 10/03/23 09:05 Dose: Not Given Fluoxetine HCl (Fluoxetine Hcl 20 Mg Cap) 40 mg PO DAILY [facility] Stop: 11/01/23 08:59 Last Admin: 10/03/23 09:05 Dose: Not Given Folic Acid (Folic Acid 1 Mg Tab) 1 mg PO DAILY [facility] Stop: 11/01/23 08:59 Last Admin: 10/03/23 09:06 Dose: Not Given Glucagon (Glucagon For Inj 1 Mg Vial) 1 mg SQ UD PRN; Protocol PRN Reason: Hypoglycemia Protocol Stop: 11/01/23 05:52 Glucose (Glucose 40% Gel 15 Gm Tube) 15 - 30 gm PO UD PRN; Protocol PRN Reason: Hypoglycemia Protocol Stop: 11/01/23 05:52 Glucose (Glucose 10 Tab/Tube) 4 - 8 tab PO UD PRN; Protocol PRN Reason: Hypoglycemia Treatment Stop: 11/01/23 05:52 Heparin Sodium (Porcine) (Heparin Sod 5,000 Unit/0.5 Ml Vial) 5,000 units SQ Q8 [facility] Stop: 11/01/23 05:59 Last Admin: 10/03/23 14:08 Dose: 5,000 units Hydromorphone HCl (Hydromorphone Inj 0.5 Mg/0.5 Ml Syr) 0.5 mg IV Q6H PRN PRN Reason: Pain Stop: 10/17/23 11:41 Last Admin: 10/03/23 11:57 Dose: 0.5 mg Sodium Chloride (Nss) 1,000 mls @ 125 mls/hr IV .Q8H [facility] Stop: 11/01/23 05:52 Last Admin: 10/03/23 10:41 Dose: 125 mls/hr Cefepime HCl 2,000 mg/ Syringe 20 mls @ 5 mls/min IV Q12H [facility]; Protocol Stop: 10/12/23 17:59 Last Admin: 10/03/23 05:53 Dose: 5 mls/min Vancomycin HCl 1,000 mg/ (Sodium Chloride) 270 mls @ 200 mls/hr IV Q24H [facility] Stop: 10/09/23 17:59 Last Infusion: 10/02/23 19:10 Dose: Infused Insulin Aspart (Insulin Aspart Per Unit Charge) 0 units SC Q6 [facility] Stop: 11/01/23 05:59 Last Admin: 10/03/23 12:11 Dose: Not Given Insulin Glargine (Lantus Per Unit Charge) 5 units SQ DAILY [facility] Stop: 11/01/23 08:59 Last Admin: 10/03/23 09:06 Dose: Not Given Lidocaine (Lidocaine 5% 1 Patch) 1 patch TD QAM [facility] Stop: 11/01/23 14:59 Last Admin: 10/03/23 09:10 Dose: 1 patch Lidocaine/Prilocaine (Lidocaine/Prilocaine 2.5% Ea Crm) 1 each EXT DAILY PRN PRN Reason: FOR PORT ACCESS/COVER AFTER AP Stop: 11/01/23 05:52 Metoprolol Tartrate (Metoprolol Tartrate 50 Mg Tab) 50 mg PO DAILY [facility] Stop: 11/01/23 08:59 Last Admin: 10/03/23 09:06 Dose: Not Given Miscellaneous (Carbohydrates For Hypoglycemia ) 15 - 30 gm PO UD PRN PRN Reason: Hypoglycemia Protocol Stop: 11/01/23 05:52 Miscellaneous (Remove Lidoderm Patch) 1 each N/A DAILY@2100 [facility] Stop: 11/01/23 20:59 Last Admin: 10/02/23 20:44 Dose: 1 each Miscellaneous Information (Vancomycin Consult Active) 1 each N/A UD PRN PRN Reason: Consult Stop: 11/01/23 05:52 Nitroglycerin (Nitroglycerin Sl 0.4 Mg/Tab Tab) 0.4 mg SL Q5M PRN PRN Reason: Chest Pain Stop: 11/01/23 05:52 Oxycodone HCl (Oxycodone Hcl Ir 5 Mg Tab (Immediate Release)) 5 mg PO Q6H PRN PRN Reason: Pain Stop: 10/16/23 05:52 Pantoprazole Sodium (Pantoprazole 40 Mg Tab) 40 mg PO BID [facility] Stop: 11/01/23 08:59 Last Admin: 10/03/23 09:06 Dose: Not Given Polyethylene Glycol (Polyethylene (Miralax) 17 Gm Pack) 17 gm PO DAILY PRN PRN Reason: Constipation Stop: 11/01/23 05:52 Thiamine HCl (Thiamine Hcl 100 Mg Tab) 100 mg PO DAILY [facility] Stop: 11/01/23 08:59 Last Admin: 10/03/23 09:06 Dose: Not Given
[2023-10-03] MEDS: METOPROLOL TARTRATE 1 MG/ML VIAL IV SCH (21:05)
[2023-10-03] MEDS: PANTOprazole 40 MG in SYRINGE 0 ML IV SCH (21:55)
[2023-10-04 07:32] LABS: Creatinine Clr Calc Pharmacy 49.6 ml/min; Est GFR (Non-African American) 42.3 ml/min
--- NOTE | 2023-10-04 09:43 | Urology Progress Note ---
Date of Service October 04, 2023 Assessment & Plan (1) UTI (urinary tract infection): (2) NATE (acute kidney injury): (3) Hematuria: (4) AMS (altered mental status): Plan 58yo/M with bilateral ureteral stents in place since 09/17/2023 admitted with altered mental status, suspected UTI, NATE, possible pneumonia. Afebrile, VSS. Labs today reviewed creatinine 1.99-1.93- 1.75 today. Continue to trend. Urine culture negative. Blood cultures prelim no growth x 48 hours. He is on e mpiric cefepime and Vanco. Nevarez intact and draining pink/red urine. CT A/P reviewed- Bilateral ureteral stents in position, 4 mm proximal right ureteral stone, no hydronephrosis or perinephric fluid collection No plan for intervention. There should be maximum decompression of the urinary tract with bilateral ureteral stents in position and Nevarez catheter in place. Suspect hematuria is related to stent irritation and possible UTI on anticoagulation Maintain Nevarez catheter and monitor urine output. Okay to hand irrigate as needed for clots, retention, suprapubic pain. Continue supportive care and antibiotic therapy. Palliative care consulted. Urology will follow peripherally. Please call with any questions or concerns. 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 at bedside. Asleep at time of exam. No acute distress. Nevarez draining pink/red urine. Review of Systems Constitutional: as per Subjective / HPI Genitourinary: + as per Subjective / HPI Physical Exam Constitutional: + ill appearing; no acute distress Respiratory: no respiratory distress and no labored breathing Genitourinary: Nevarez draining pink/red urine Results & Data Vital Signs (Past 12 Hours) Vital Signs Temp Pulse Pulse Resp BP BP Pulse Ox 10/04/23 09:06 10/04/23 08:31 88 130/66 10/04/23 08:14 87 132/72 10/04/23 07:45 36.6 C 97 H 18 132/71 94 10/04/23 05:00 97 H 150/78 H 10/04/23 05:00 10/04/23 04:06 106 H 163/85 H 10/04/23 02:56 36.6 C 106 H 22 163/85 H 96 10/04/23 00:50 100 H 169/82 H 10/04/23 00:35 110 H 164/93 H 10/03/23 22:45 36.8 C 98 H 22 169/80 H 97 10/03/23 21:43 92 H 165/87 H Pulse Ox O2 Del Method O2 Del Method 10/04/23 09:06 Room Air 10/04/23 08:31 10/04/23 08:14 10/04/23 07:45 Room Air 10/04/23 05:00 10/04/23 05:00 93 Room Air 10/04/23 04:06 10/04/23 02:56 Room Air 10/04/23 00:50 10/04/23 00:35 10/03/23 22:45 Room Air 10/03/23 21:43 PG Care Time/CCT Total # of Minutes Spent Total Time Spent with Patient: Total time spent is greater than 50% in coordination of care (as documented) at patient's floor/unit and/or counseling patient: Coding Level of Care Code 67116 SUB INP/OBS CARE 06/29MIN Diagnoses UTI (urinary tract infection) N39.0 NATE (acute kidney injury) N17.9 Hematuria R31.9 AMS (altered mental status) R41.82
--- NOTE | 2023-10-04 11:12 | Pharmacy Report ---
Pharmacy PK ABX Note - Date of Service October 04, 2023 - Assessment and Plan Assessment 58 year old M admitted with AMS. PMHx significant for CVA with left hemiplegia, DM2, pancreatic cancer metastasized to liver, recent hospitalizations - most recently 09/16 s/p cystoscopy with bilateral stent insertion. Vancomycin and cefepime started for concerns for pneumonia/UTI. Chest x-ray with trace pleural effusions, pelvis CT negative for perinephritic fluid, small pelvic/abd ascites noted, head CT negative. Blood cultures show no growth at 48 hours, urine cultures finalized as no growth. MRSA nasal swab also negative. Plan Vancomycin * Current regimen: 1000 mg IV every 24 hours * Random level obtained 10/04/23 resulted as 17.6 mcg/mL. This is predicted to achieve target AUC/LUBA of 400-600 mg/L.hr * Predicted AUC at steady state: 506 mg/L.hr * Continue 1000 mg IV every 24 hours * Will repeat level in the next 48-72 hours if therapy is continued and/or change in patient clinical status Pharmacy will continue to follow and will adjust dose/frequency as necessary. Thank you. Pharmacy has transitioned to AUC monitoring for vancomycin. AUC/LUBA is the preferred PK/PD target and is associated with decreased risk of nephrotoxicity compared to traditional trough targets.
[2023-10-04] MEDS: LORazepam 1 MG in SYRINGE 0.5 ML IV PRN (13:23)
--- NOTE | 2023-10-04 13:30 | Hospitalist Progress Note ---
Date of Service October 04, 2023 Assessment & Plan (1) AMS (altered mental status): Plan: Pt is a 58-year-old male with past med history significant for CVA with left hemiplegia, diabetes mellitus type 2, pancreatic cancer metastasized to the liver, CAD, hypertension, recent hospitalization from 07/28/2023 to 07/31/2023 for acute cholecystitis and required 2 PRBC during that admission, status post EUS guided GB drainage and Axios stent placement on 08/11/2023, and again was recently in the hospital for NATE and ureterolithiasis and pancolitis. Patient was s/p cystoscopy with bilateral stent insertion on September 17, 2023, was treated with 7- day course of IV Zosyn and during that admission he also had hematuria, confusion and pancytopenia thought to be from chemo, received Neupogen, s/p platelets transfusion for transient epistaxis, s/p 3 units of PRBCs hemoglobin was stable and his aspirin was held but Plavix was restarted and was discharged on September 28, 2022 was brought in by his because of altered mental status. Family had a discussion with palliative care on 10/04/23 and the patient was transitioned to comfort measures only with goal of SNF placement, family reportedly cannot take him home with hospice. He was previously treated for the following this admission: Acute metabolic encephalopathy Secondary to complicated UTI Complicated by advanced pancreatic cancer Empirically placed on cefepime and vanco blood and urine cultures have been negative CT head with no acute changes CT abd/pelvis with ureteral stents in place Possible pneumonia on ct abd/pevis CT chest-possible low-grade pneumonitis urology consulted, appreciate recs Palliative care consult for goals of care discussion Pt transitioned to comfort measures only Advanced pancreatic cancer with metastasis Follow-up with heme-onc Elevated LFTs-secondary to metastasis Not a candidate for chemotherapy Has had palliative care evaluation during last admission and wanted to have onc ology evaluation and treatment if possible Palliative care consulted for goals of care discussion once more Pt transitioned to comfort measures only NATE Creatinine 2.06 on admission Creatinine was 1.3 on September 27 IV fluids Avoid nephrotoxic agents Kidney function remains stable Palliative care consult for goals of care discussion Pt transitioned to comfort measures only Anemia Hemoglobin 9 Required PRBC transfusion last admission Aspirin was discontinued last admission Palliative care consult for goals of care discussion Pt transitioned to comfort measures only Hypertension Continue metoprolol succinate Held losartan intravenous Lopressor Palliative care consult for goals of care discussion Pt transitioned to comfort measures only Diabetes Hold metformin Reduce Lantus to 5 units daily as patient currently n.p.o. Sliding scale Palliative care consult for goals of care discussion Pt transitioned to comfort measures only CODE STATUS: Palliative care consult for goals of care discussion. Pt transitioned to comfort measures only on 10/03. Currently awaiting placement at SNF. Admission and Anticipated Discharge Date Admission Date: October 02, 2023 Subjective Pt was seen in the AM. Pt's and mother at bedside. Many questions answered outside pt's room from pt's mother. Notes family hx of pancreatic cancer. Pt nonverbal, moans in response. Review of Systems Review of Systems: All systems reviewed & are unremarkable except as noted in Subjective Physical Exam Physical Exam: General: Alert laying in bed Psych: mood and affect could not be determined Neuro: difficulty with movements in the bed HEENT: NC/AT CV: RRR Resp: Breath sounds clear bilaterally, no increased effort of breathing. Abdomen: Soft Results & Data Results & Data Vital Signs (Past 12 Hours) Vital Signs Temp Pulse Pulse Resp BP BP Pulse Ox 10/04/23 12:26 78 112/64 10/04/23 12:11 82 162/90 H 10/04/23 11:14 36.5 C 87 18 162/90 H 94 10/04/23 09:06 10/04/23 08:31 88 130/66 10/04/23 08:14 87 132/72 10/04/23 07:45 36.6 C 97 H 18 132/71 94 10/04/23 05:00 97 H 150/78 H 10/04/23 05:00 10/04/23 04:06 106 H 163/85 H 10/04/23 02:56 36.6 C 106 H 22 163/85 H 96 Pulse Ox O2 Del Method O2 Del Method 10/04/23 12:26 10/04/23 12:11 10/04/23 11:14 Room Air 10/04/23 09:06 Room Air 10/04/23 08:31 10/04/23 08:14 10/04/23 07:45 Room Air 10/04/23 05:00 10/04/23 05:00 93 Room Air 10/04/23 04:06 10/04/23 02:56 Room Air
--- NOTE | 2023-10-04 13:46 | Palliative Care Consultation ---
Date of Consultation October 04, 2023 Assessment & Plan (1) Weakness generalized: (2) Cancer related pain: (3) Severe muscle deconditioning: (4) Advanced care planning/counseling discussion: I met with Demar's Mom and his face to face for 40min in family conference room for ths ACP discussion. indicates awareness pt is not going to improve and understands he cannot have more chemo. Mom states she feels he is dying. We reviewed the overall decline and poor prognosis. Advised I share their worries. We spoke about EOL care options, they choose [facility] [facility] starting now and SNF placement. Nursing and primary team updated. (5) Palliative care by specialist: Plan [employer] orders written Medical team and nursing updated I will follow up with family Monday around 1030, they are aware I am in OP clinic all day tomorrow. Thank you for allowing us to participate in the ongoing care of this patient. Please don't hesitate to call or page with any additional concerns. Dr. Elissa Arnold DNP Director, Palliative Care History of Present Illness Reason for Consultation: goals of care Attending Physician: Nita Rich MD History of Present Illness Demar Ocampo is a 58yo male with PMH CVA with left hemiplegia, diabetes mellitus type 2, pancreatic cancer metastasized to the liver, CAD, hypertension. he is well known to me from his recent hospitalizations from 07/28/2023 to 07/31/2023 for acute cholecystitis and required 2 PRBC during that admission, status post EUS guided GB drainage and Axios stent placement on 08/11/2023, and then for NATE and ureterolithiasis and pancolitis, now s/p cystoscopy with bilateral stent insertion on September 17, 2023 + treated with 7-day course of IV Zosyn. During recent admission he had hematuria, confusion and pancytopenia and then dc home at his request 09/29/23, declining offers for rehab, VNS or home hospice. on 10/01, brought pt to ED with report of AMS which has been progressively worsening agitation and confusion. and mom are in the room with pt at time of my visit he is agitated, restless and intermittently shouting "UP" Allergies Allergy/AdvReac Type Severity Reaction Status Date / Time No Known Allergies Allergy Verified 10/02/23 00:17 Home Medications Medication Instructions Recorded Confirmed Type baclofen 10 mg tablet 15 mg PO QID 05/29/23 10/02/23 History clopidogrel 75 mg tablet 75 mg PO DAILY 05/29/23 10/02/23 History ezetimibe 10 mg tablet 10 mg PO DAILY 05/29/23 10/02/23 History fluoxetine 40 mg capsule 40 mg PO DAILY 05/29/23 10/02/23 History folic acid 1 mg tablet 1 mg PO DAILY 05/29/23 10/02/23 History metoprolol tartrate 50 mg tablet 50 mg PO DAILY 05/29/23 10/02/23 History thiamine HCl (vitamin B1) 100 mg 100 mg PO DAILY 05/29/23 10/02/23 History tablet acetaminophen 500 mg tablet 500 mg PO DIRECTED PRN 07/27/23 10/02/23 History (Tylenol Extra Strength) PAIN/FEVER diphenhydramine HCl 25 mg capsule 25 mg PO Q6H PRN Itching 07/27/23 10/02/23 History (Benadryl) insulin glargine 100 unit/mL (3 10 unit subcut QAM 07/27/23 10/02/23 History mL) subcutaneous pen (Lantus Solostar U-100 Insulin) metformin 500 mg tablet,extended 500 mg PO BID 07/27/23 10/02/23 History release 24 hr oxycodone 5 mg tablet 5 mg PO Q6H PRN Pain 07/27/23 10/02/23 History pantoprazole 40 mg tablet,delayed 40 mg PO BID #60 tabs 07/31/23 10/02/23 Rx release (Protonix) aspirin 81 mg tablet,delayed 81 mg PO DAILY 10/02/23 10/02/23 History release lidocaine-prilocaine 2.5 %-2.5 % 1 applic topical DIRECTED PRN 10/02/23 10/02/23 History topical cream FOR PORT ACCESS/COVER AFTER SCOTT losartan 50 mg tablet 50 mg PO QAM 10/02/23 10/02/23 History ondansetron HCl 8 mg tablet 8 mg PO Q8H PRN NAUSEA/VOMITING 10/02/23 10/02/23 History prochlorperazine maleate 10 mg 10 mg PO Q6H PRN NAUSEA/VOMITING 10/02/23 10/02/23 History tablet Patient History Medical History Palliative care by specialist Advanced care planning/counseling discussion Diarrhea Severe muscle deconditioning Weakness generalized Cancer related pain DMII (diabetes mellitus, type 2) Anxiety History of tobacco use Focal dystonia Benign meningioma of brain Left hemiplegia Left spastic hemiparesis Adhesive capsulitis of left shoulder 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 Fatty liver Obesity Arteriosclerosis of coronary artery CAD (coronary artery disease) Cerebral atherosclerosis HTN (hypertension) Carotid stenosis, symptomatic, with infarction Hyperlipidemia Surgical History S/P tonsillectomy and adenoidectomy S/P carotid endarterectomy Family History Mother Diabetes Social History Smoking Status: Never smoker Hx Alcohol Use: No Hx Substance Use: No Preferred Language: Cambodian Communication Ability: Effective Barbecue Cook Required: No Beliefs That Will Affect Care: None marital status: Current Living Situation: Spouse Current Living Situation Comment: lives at home with current occupational status: disabled Feels Safe at Home: Yes Safety Concerns: Feels Safe At This Time Assistive Devices: Walker, Wheelchair and Other Review of Systems Review of Systems: Unobtainable due to cognitive status Physical Exam Physical Exam: Frail, chronically ill-appearing male appears older than stated age, resting supine, agitated and restless, shouting "UP!" repeatedly.bitemp wasting and +generalized weakness, +diaphoretic and pale. He has an ashen complexion. +garbled speech, frequently drifts off. Unable to follow commands. Abdomen is soft but tender to palpation. Bowel sounds are diminished. +confused Results & Data Vital Signs (Past 12 Hours) Vital Signs Temp Pulse Pulse Resp BP BP Pulse Ox 10/04/23 12:26 78 112/64 10/04/23 12:11 82 162/90 H 10/04/23 11:14 36.5 C 87 18 162/90 H 94 10/04/23 09:06 10/04/23 08:31 88 130/66 10/04/23 08:14 87 132/72 10/04/23 07:45 36.6 C 97 H 18 132/71 94 05/01/24 05:00 97 H 150/78 H 10/04/23 05:00 10/04/23 04:06 106 H 163/85 H 10/04/23 02:56 36.6 C 106 H 22 163/85 H 96 Pulse Ox O2 Del Method O2 Del Method 10/04/23 12:26 10/04/23 12:11 10/04/23 11:14 Room Air 10/04/23 09:06 Room Air 10/04/23 08:31 10/04/23 08:14 10/04/23 07:45 Room Air 10/04/23 05:00 10/04/23 05:00 93 Room Air 10/04/23 04:06 10/04/23 02:56 Room Air Laboratory Results 10/04/23 10/04/23 10/04/23 Range/Units 11:58 10:01 08:08 WBC (4.8-10.8) K/ul RBC (4.70-6.10) M/uL Hgb (14.0-18.0) g/dl Hct (42.0-52.0) % MCV (80.0-100.0) fL MCH (25.0-34.0) pg MCHC (32.0-36.0) g/dL RDW Std Deviation (36.4-46.3) fL RDW Coeff of Bess (11.5-14.5) % Plt Count (130-400) K/uL MPV (9.4-12.4) fL Immature Gran % (Auto) % Neut % (Auto) % Lymph % (Auto) % [place] % (Auto) % Eos % (Auto) % Baso % (Auto) % Neut # (Auto) (1.40-6.50) K/uL Lymph # (Auto) (1.20-3.40) K/uL [place] # (Auto) (0.11-0.59) K/uL Eos # (Auto) (0.00-0.50) K/uL Baso # (Auto) (0.00-0.20) K/uL Immature Gran # (Auto) (0.01-0.20) K/uL Absolute Nucleated RBC (0.00-0.12) K/uL Nucleated RBC % (auto) % Polychromasia Anisocytosis Tear Drop Cells PT (9.0-12.0) Seconds INR (0.9-1.1) APTT (21-31) Seconds PTT Ratio Sodium (136-145) mmol/L Potassium (3.5-5.1) mmol/L Chloride (98-107) mmol/L Carbon Dioxide (21-32) mmol/L Anion Gap (3-11) BUN (6-23) mg/dl Creatinine (0.6-1.4) mg/dl Est Cr Clr Drug Dosing Est GFR ( Amer) ml/min Est GFR (Non-Af Amer) ml/min BUN/Creatinine Ratio (10-20) Glucose (70-99(Fasting)) mg/dl POC Glucose 95 84 (70-99) mg/dl Estimat Average Glucose mg/dl Hemoglobin A1c (4.5-5.6) % Lactate (0.4-2.0) mmol/L Calcium (8.6-10.3) mg/dl Phosphorus (2.5-4.9) mg/dl Magnesium (1.7-2.4) mg/dl Total Bilirubin (0.2-1.0) mg/dl AST (13-39) U/L ALT (7-52) U/L Alkaline Phosphatase (34-104) U/L Troponin I High Sens (0-20) pg/ml Total Protein (6.0-8.3) gm/dl Albumin (3.4-5.0) gm/dl Globulin (2.5-4.0) gm/dl Albumin/Globulin Ratio (0.9-2) Procalcitonin (0-0.5) ng/ml TSH (0.300-4.500) uIu/ml Urine Color Urine Appearance (Clear) Urine pH (4.5-7.5) Ur Specific [place] (1.000-1.030) Urine Protein (Negative) Urine Glucose (UA) (Negative) Urine Ketones (Negative) Urine Blood (Negative) Urine Nitrite (Negative) Urine Bilirubin (Negative) Urine Urobilinogen (Negative) Ur Leukocyte Esterase (Negative) Urine RBC (0-2) /hpf Urine WBC (0-5) /hpf Ur Epithelial Cells (0-2) /hpf Urine Bacteria (None Seen) Nasal Screen MRSA (PCR) (Negative) Random Vancomycin 17.6 (10-20) mcg/ml 10/04/23 10/04/23 10/04/23 Range/Units 06:32 05:57 00:31 WBC (4.8-10.8) K/ul RBC (4.70-6.10) M/uL Hgb (14.0-18.0) g/dl Hct (42.0-52.0) % MCV (80.0-100.0) fL MCH (25.0-34.0) pg MCHC (32.0-36.0) g/dL RDW Std Deviation (36.4-46.3) fL RDW Coeff of Bess (11.5-14.5) % Plt Count (130-400) K/uL MPV (9.4-12.4) fL Immature Gran % (Auto) % Neut % (Auto) % Lymph % (Auto) % [place] % (Auto) % Eos % (Auto) % Baso % (Auto) % Neut # (Auto) (1.40-6.50) K/uL Lymph # (Auto) (1.20-3.40) K/uL [place] # (Auto) (0.11-0.59) K/uL Eos # (Auto) (0.00-0.50) K/uL Baso # (Auto) (0.00-0.20) K/uL Immature Gran # (Auto) (0.01-0.20) K/uL Absolute Nucleated RBC (0.00-0.12) K/uL Nucleated RBC % (auto) % Polychromasia Anisocytosis Tear Drop Cells PT (9.0-12.0) Seconds INR (0.9-1.1) APTT (21-31) Seconds PTT Ratio Sodium (136-145) mmol/L Potassium (3.5-5.1) mmol/L Chloride (98-107) mmol/L Carbon Dioxide (21-32) mmol/L Anion Gap (3-11) BUN (6-23) mg/dl Creatinine 1.75 H (0.6-1.4) mg/dl Est Cr Clr Drug Dosing 49.6 Est GFR ( Amer) 49.0 ml/min Est GFR (Non-Af Amer) 42.3 ml/min BUN/Creatinine Ratio (10-20) Glucose (70-99(Fasting)) mg/dl POC Glucose 258 H 142 H (70-99) mg/dl Estimat Average Glucose mg/dl Hemoglobin A1c (4.5-5.6) % Lactate (0.4-2.0) mmol/L Calcium (8.6-10.3) mg/dl Phosphorus (2.5-4.9) mg/dl Magnesium (1.7-2.4) mg/dl Total Bilirubin (0.2-1.0) mg/dl AST (13-39) U/L ALT (7-52) U/L Alkaline Phosphatase (34-104) U/L Troponin I High Sens (0-20) pg/ml Total Protein (6.0-8.3) gm/dl Albumin (3.4-5.0) gm/dl Globulin (2.5-4.0) gm/dl Albumin/Globulin Ratio (0.9-2) Procalcitonin (0-0.5) ng/ml TSH (0.300-4.500) uIu/ml Urine Color Urine Appearance (Clear) Urine pH (4.5-7.5) Ur Specific [place] (1.000-1.030) Urine Protein (Negative) Urine Glucose (UA) (Negative) Urine Ketones (Negative) Urine Blood (Negative) Urine Nitrite (Negative) Urine Bilirubin (Negative) Urine Urobilinogen (Negative) Ur Leukocyte Esterase (Negative) Urine RBC (0-2) /hpf Urine WBC (0-5) /hpf Ur Epithelial Cells (0-2) /hpf Urine Bacteria (None Seen) Nasal Screen MRSA (PCR) (Negative) Random Vancomycin (10-20) mcg/ml 10/03/23 10/03/23 10/03/23 Range/Units 18:13 12:07 05:54 WBC (4.8-10.8) K/ul RBC (4.70-6.10) M/uL Hgb (14.0-18.0) g/dl Hct (42.0-52.0) % MCV (80.0-100.0) fL MCH (25.0-34.0) pg MCHC (32.0-36.0) g/dL RDW Std Deviation (36.4-46.3) fL RDW Coeff of Bess (11.5-14.5) % Plt Count (130-400) K/uL MPV (9.4-12.4) fL Immature Gran % (Auto) % Neut % (Auto) % Lymph % (Auto) % [place] % (Auto) % Eos % (Auto) % Baso % (Auto) % Neut # (Auto) (1.40-6.50) K/uL Lymph # (Auto) (1.20-3.40) K/uL [place] # (Auto) (0.11-0.59) K/uL Eos # (Auto) (0.00-0.50) K/uL Baso # (Auto) (0.00-0.20) K/uL Immature Gran # (Auto) (0.01-0.20) K/uL Absolute Nucleated RBC (0.00-0.12) K/uL Nucleated RBC % (auto) % Polychromasia Anisocytosis Tear Drop Cells PT (9.0-12.0) Seconds INR (0.9-1.1) APTT (21-31) Seconds PTT Ratio Sodium (136-145) mmol/L Potassium (3.5-5.1) mmol/L Chloride (98-107) mmol/L Carbon Dioxide (21-32) mmol/L Anion Gap (3-11) BUN (6-23) mg/dl Creatinine (0.6-1.4) mg/dl Est Cr Clr Drug Dosing Est GFR ( Amer) ml/min Est GFR (Non-Af Amer) ml/min BUN/Creatinine Ratio (10-20) Glucose (70-99(Fasting)) mg/dl POC Glucose 141 H 133 H 128 H (70-99) mg/dl Estimat Average Glucose mg/dl Hemoglobin A1c (4.5-5.6) % Lactate (0.4-2.0) mmol/L Calcium (8.6-10.3) mg/dl Phosphorus (2.5-4.9) mg/dl Magnesium (1.7-2.4) mg/dl Total Bilirubin (0.2-1.0) mg/dl AST (13-39) U/L ALT (7-52) U/L Alkaline Phosphatase (34-104) U/L Troponin I High Sens (0-20) pg/ml Total Protein (6.0-8.3) gm/dl Albumin (3.4-5.0) gm/dl Globulin (2.5-4.0) gm/dl Albumin/Globulin Ratio (0.9-2) Procalcitonin (0-0.5) ng/ml TSH (0.300-4.500) uIu/ml Urine Color Urine Appearance (Clear) Urine pH (4.5-7.5) Ur Specific [place] (1.000-1.030) Urine Protein (Negative) Urine Glucose (UA) (Negative) Urine Ketones (Negative) Urine Blood (Negative) Urine Nitrite (Negative) Urine Bilirubin (Negative) Urine Urobilinogen (Negative) Ur Leukocyte Esterase (Negative) Urine RBC (0-2) /hpf Urine WBC (0-5) /hpf Ur Epithelial Cells (0-2) /hpf Urine Bacteria (None Seen) Nasal Screen MRSA (PCR) (Negative) Random Vancomycin (10-20) mcg/ml 10/03/23 10/02/23 10/02/23 Range/Units 05:40 23:52 22:10 WBC 19.69 H (4.8-10.8) K/ul RBC 2.95 L (4.70-6.10) M/uL Hgb 8.5 L (14.0-18.0) g/dl Hct 26.9 L (42.0-52.0) % MCV 91.2 (80.0-100.0) fL MCH 28.8 (25.0-34.0) pg MCHC 31.6 L (32.0-36.0) g/dL RDW Std Deviation 82.2 H (36.4-46.3) fL RDW Coeff of Bess 26.2 H (11.5-14.5) % Plt Count 292 (130-400) K/uL MPV 9.5 (9.4-12.4) fL Immature Gran % (Auto) 1.9 % Neut % (Auto) 76.7 % Lymph % (Auto) 7.6 % [place] % (Auto) 13.4 % Eos % (Auto) 0.1 % Baso % (Auto) 0.3 % Neut # (Auto) 15.12 H (1.40-6.50) K/uL Lymph # (Auto) 1.50 (1.20-3.40) K/uL [place] # (Auto) 2.63 H (0.11-0.59) K/uL Eos # (Auto) 0.01 (0.00-0.50) K/uL Baso # (Auto) 0.06 (0.00-0.20) K/uL Immature Gran # (Auto) 0.37 H (0.01-0.20) K/uL Absolute Nucleated RBC 0.06 (0.00-0.12) K/uL Nucleated RBC % (auto) 0.3 % Polychromasia 2+ Anisocytosis Present Tear Drop Cells 1+ PT (9.0-12.0) Seconds INR (0.9-1.1) APTT (21-31) Seconds PTT Ratio Sodium 145 (136-145) mmol/L Potassium 4.5 (3.5-5.1) mmol/L Chloride 119 H (98-107) mmol/L Carbon Dioxide 16 L (21-32) mmol/L Anion Gap 10 (3-11) BUN 25 H (6-23) mg/dl Creatinine 1.93 H (0.6-1.4) mg/dl Est Cr Clr Drug Dosing 44.8 Est GFR ( Amer) 43.5 ml/min Est GFR (Non-Af Amer) 37.6 ml/min BUN/Creatinine Ratio 13.0 (10-20) Glucose 119 H (70-99(Fasting)) mg/dl POC Glucose 120 H (70-99) mg/dl Estimat Average Glucose mg/dl Hemoglobin A1c (4.5-5.6) % Lactate (0.4-2.0) mmol/L Calcium 7.3 L (8.6-10.3) mg/dl Phosphorus 4.6 (2.5-4.9) mg/dl Magnesium 1.6 L (1.7-2.4) mg/dl Total Bilirubin 1.4 H (0.2-1.0) mg/dl AST 39 (13-39) U/L ALT 24 (7-52) U/L Alkaline Phosphatase 153 H (34-104) U/L Troponin I High Sens (0-20) pg/ml Total Protein 5.4 L (6.0-8.3) gm/dl Albumin 2.4 L (3.4-5.0) gm/dl Globulin 3.0 (2.5-4.0) gm/dl Albumin/Globulin Ratio 0.8 L (0.9-2) Procalcitonin (0-0.5) ng/ml TSH (0.300-4.500) uIu/ml Urine Color Urine Appearance (Clear) Urine pH (4.5-7.5) Ur Specific [place] (1.000-1.030) Urine Protein (Negative) Urine Glucose (UA) (Negative) Urine Ketones (Negative) Urine Blood (Negative) Urine Nitrite (Negative) Urine Bilirubin (Negative) Urine Urobilinogen (Negative) Ur Leukocyte Esterase (Negative) Urine RBC (0-2) /hpf Urine WBC (0-5) /hpf Ur Epithelial Cells (0-2) /hpf Urine Bacteria (None Seen) Nasal Screen MRSA (PCR) Negative (Negative) Random Vancomycin (10-20) mcg/ml 10/02/23 10/02/23 10/02/23 Range/Units 19:48 17:19 12:47 WBC (4.8-10.8) K/ul RBC (4.70-6.10) M/uL Hgb (14.0-18.0) g/dl Hct (42.0-52.0) % MCV (80.0-100.0) fL MCH (25.0-34.0) pg MCHC (32.0-36.0) g/dL RDW Std Deviation (36.4-46.3) fL RDW Coeff of Bess (11.5-14.5) % Plt Count (130-400) K/uL MPV (9.4-12.4) fL Immature Gran % (Auto) % Neut % (Auto) % Lymph % (Auto) % [place] % (Auto) % Eos % (Auto) % Baso % (Auto) % Neut # (Auto) (1.40-6.50) K/uL Lymph # (Auto) (1.20-3.40) K/uL [place] # (Auto) (0.11-0.59) K/uL Eos # (Auto) (0.00-0.50) K/uL Baso # (Auto) (0.00-0.20) K/uL Immature Gran # (Auto) (0.01-0.20) K/uL Absolute Nucleated RBC (0.00-0.12) K/uL Nucleated RBC % (auto) % Polychromasia Anisocytosis Tear Drop Cells PT (9.0-12.0) Seconds INR (0.9-1.1) APTT (21-31) Seconds PTT Ratio Sodium (136-145) mmol/L Potassium (3.5-5.1) mmol/L Chloride (98-107) mmol/L Carbon Dioxide (21-32) mmol/L Anion Gap (3-11) BUN (6-23) mg/dl Creatinine (0.6-1.4) mg/dl Est Cr Clr Drug Dosing Est GFR ( Amer) ml/min Est GFR (Non-Af Amer) ml/min BUN/Creatinine Ratio (10-20) Glucose (70-99(Fasting)) mg/dl POC Glucose 114 H 104 H 101 H (70-99) mg/dl Estimat Average Glucose mg/dl Hemoglobin A1c (4.5-5.6) % Lactate (0.4-2.0) mmol/L Calcium (8.6-10.3) mg/dl Phosphorus (2.5-4.9) mg/dl Magnesium (1.7-2.4) mg/dl Total Bilirubin (0.2-1.0) mg/dl AST (13-39) U/L ALT (7-52) U/L Alkaline Phosphatase (34-104) U/L Troponin I High Sens (0-20) pg/ml Total Protein (6.0-8.3) gm/dl Albumin (3.4-5.0) gm/dl Globulin (2.5-4.0) gm/dl Albumin/Globulin Ratio (0.9-2) Procalcitonin (0-0.5) ng/ml TSH (0.300-4.500) uIu/ml Urine Color Urine Appearance (Clear) Urine pH (4.5-7.5) Ur Specific [place] (1.000-1.030) Urine Protein (Negative) Urine Glucose (UA) (Negative) Urine Ketones (Negative) Urine Blood (Negative) Urine Nitrite (Negative) Urine Bilirubin (Negative) Urine Urobilinogen (Negative) Ur Leukocyte Esterase (Negative) Urine RBC (0-2) /hpf Urine WBC (0-5) /hpf Ur Epithelial Cells (0-2) /hpf Urine Bacteria (None Seen) Nasal Screen MRSA (PCR) (Negative) Random Vancomycin (10-20) mcg/ml 10/02/23 10/02/23 10/02/23 Range/Units 07:13 06:37 01:06 WBC 16.37 H (4.8-10.8) K/ul RBC 3.14 L (4.70-6.10) M/uL Hgb 8.9 L (14.0-18.0) g/dl Hct 28.7 L (42.0-52.0) % MCV 91.4 (80.0-100.0) fL MCH 28.3 (25.0-34.0) pg MCHC 31.0 L (32.0-36.0) g/dL RDW Std Deviation 82.0 H (36.4-46.3) fL RDW Coeff of Bess 25.4 H (11.5-14.5) % Plt Count 247 (130-400) K/uL MPV 10.1 (9.4-12.4) fL Immature Gran % (Auto) 2.3 % Neut % (Auto) 75.0 % Lymph % (Auto) 9.0 % [place] % (Auto) 13.4 % Eos % (Auto) 0.0 % Baso % (Auto) 0.3 % Neut # (Auto) 12.27 H (1.40-6.50) K/uL Lymph # (Auto) 1.48 (1.20-3.40) K/uL [place] # (Auto) 2.20 H (0.11-0.59) K/uL Eos # (Auto) 0.00 (0.00-0.50) K/uL Baso # (Auto) 0.05 (0.00-0.20) K/uL Immature Gran # (Auto) 0.37 H (0.01-0.20) K/uL Absolute Nucleated RBC 0.08 (0.00-0.12) K/uL Nucleated RBC % (auto) 0.5 % Polychromasia 1+ Anisocytosis Present Tear Drop Cells PT (9.0-12.0) Seconds INR (0.9-1.1) APTT (21-31) Seconds PTT Ratio Sodium 142 (136-145) mmol/L Potassium 4.6 (3.5-5.1) mmol/L Chloride 116 H (98-107) mmol/L Carbon Dioxide 20 L (21-32) mmol/L Anion Gap 6 (3-11) BUN 25 H (6-23) mg/dl Creatinine 1.99 H (0.6-1.4) mg/dl Est Cr Clr Drug Dosing 43.4 Est GFR ( Amer) 42.0 ml/min Est GFR (Non-Af Amer) 36.2 ml/min BUN/Creatinine Ratio 12.6 (10-20) Glucose 94 (70-99(Fasting)) mg/dl POC Glucose 86 (70-99) mg/dl Estimat Average Glucose 131 mg/dl Hemoglobin A1c 6.2 H (4.5-5.6) % Lactate 1.8 (0.4-2.0) mmol/L Calcium 7.4 L (8.6-10.3) mg/dl Phosphorus (2.5-4.9) mg/dl Magnesium 1.8 (1.7-2.4) mg/dl Total Bilirubin (0.2-1.0) mg/dl AST (13-39) U/L ALT (7-52) U/L Alkaline Phosphatase (34-104) U/L Troponin I High Sens (0-20) pg/ml Total Protein (6.0-8.3) gm/dl Albumin (3.4-5.0) gm/dl Globulin (2.5-4.0) gm/dl Albumin/Globulin Ratio (0.9-2) Procalcitonin 1.04 H (0-0.5) ng/ml TSH (0.300-4.500) uIu/ml Urine Color Urine Appearance (Clear) Urine pH (4.5-7.5) Ur Specific [place] (1.000-1.030) Urine Protein (Negative) Urine Glucose (UA) (Negative) Urine Ketones (Negative) Urine Blood (Negative) Urine Nitrite (Negative) Urine Bilirubin (Negative) Urine Urobilinogen (Negative) Ur Leukocyte Esterase (Negative) Urine RBC (0-2) /hpf Urine WBC (0-5) /hpf Ur Epithelial Cells (0-2) /hpf Urine Bacteria (None Seen) Nasal Screen MRSA (PCR) (Negative) Random Vancomycin (10-20) mcg/ml 10/01/23 10/01/23 Range/Units 23:30 22:53 WBC 19.04 H (4.8-10.8) K/ul RBC 3.13 L (4.70-6.10) M/uL Hgb 9.0 L (14.0-18.0) g/dl Hct 27.6 L (42.0-52.0) % MCV 88.2 (80.0-100.0) fL MCH 28.8 (25.0-34.0) pg MCHC 32.6 (32.0-36.0) g/dL RDW Std Deviation 65.3 H (36.4-46.3) fL RDW Coeff of Bess 24.9 H (11.5-14.5) % Plt Count 269 (130-400) K/uL MPV 9.4 (9.4-12.4) fL Immature Gran % (Auto) 2.4 % Neut % (Auto) 76.9 % Lymph % (Auto) 8.7 % [place] % (Auto) 11.7 % Eos % (Auto) 0.1 % Baso % (Auto) 0.2 % Neut # (Auto) 14.65 H (1.40-6.50) K/uL Lymph # (Auto) 1.65 (1.20-3.40) K/uL [place] # (Auto) 2.22 H (0.11-0.59) K/uL Eos # (Auto) 0.02 (0.00-0.50) K/uL Baso # (Auto) 0.04 (0.00-0.20) K/uL Immature Gran # (Auto) 0.46 H (0.01-0.20) K/uL Absolute Nucleated RBC 0.11 (0.00-0.12) K/uL Nucleated RBC % (auto) 0.6 % Polychromasia 1+ Anisocytosis Present Tear Drop Cells 1+ PT 13.5 H (9.0-12.0) Seconds INR 1.2 H (0.9-1.1) APTT 31 (21-31) Seconds PTT Ratio 1.1 Sodium 140 (136-145) mmol/L Potassium 4.3 (3.5-5.1) mmol/L Chloride 111 H (98-107) mmol/L Carbon Dioxide 20 L (21-32) mmol/L Anion Gap 9 (3-11) BUN 25 H (6-23) mg/dl Creatinine 2.06 H (0.6-1.4) mg/dl Est Cr Clr Drug Dosing Not Reportable Est GFR ( Amer) 40.2 ml/min Est GFR (Non-Af Amer) 34.7 ml/min BUN/Creatinine Ratio 12.1 (10-20) Glucose 113 H (70-99(Fasting)) mg/dl POC Glucose 107 H (70-99) mg/dl Estimat Average Glucose mg/dl Hemoglobin A1c (4.5-5.6) % Lactate (0.4-2.0) mmol/L Calcium 7.7 L (8.6-10.3) mg/dl Phosphorus (2.5-4.9) mg/dl Magnesium 1.8 (1.7-2.4) mg/dl Total Bilirubin 1.6 H (0.2-1.0) mg/dl AST 44 H (13-39) U/L ALT 24 (7-52) U/L Alkaline Phosphatase 179 H (34-104) U/L Troponin I High Sens 12.6 (0-20) pg/ml Total Protein 5.7 L (6.0-8.3) gm/dl Albumin 2.5 L (3.4-5.0) gm/dl Globulin 3.2 (2.5-4.0) gm/dl Albumin/Globulin Ratio 0.8 L (0.9-2) Procalcitonin (0-0.5) ng/ml TSH 3.158 (0.300-4.500) uIu/ml Urine Color Red Urine Appearance Cloudy A (Clear) Urine pH 6.0 (4.5-7.5) Ur Specific [place] 1.020 (1.000-1.030) Urine Protein 3+ H (Negative) Urine Glucose (UA) Negative (Negative) Urine Ketones Negative (Negative) Urine Blood 3+ H (Negative) Urine Nitrite Negative (Negative) Urine Bilirubin 1+ H (Negative) Urine Urobilinogen Negative (Negative) Ur Leukocyte Esterase 1+ H (Negative) Urine RBC >20 H (0-2) /hpf Urine WBC >50 H (0-5) /hpf Ur Epithelial Cells 0-2 (0-2) /hpf Urine Bacteria 1+ H (None Seen) Nasal Screen MRSA (PCR) (Negative) Random Vancomycin (10-20) mcg/ml Diagnostic Findings Chest X-Ray 10/01/23 22:59 XR chest 1V portable HISTORY: 58 years-old Male Weakness COMPARISON: Chest radiograph 07/27/2023, CT abdomen and pelvis 10/02/2023. TECHNIQUE: AP view of the chest FINDINGS: Cardiomediastinal and hilar silhouettes are unchanged. Trace left pleural effus ion. Ill-defined subsegmental midlung and bibasilar opacities. Left IJ [id number] catheter distal tip projects in expected location of the mid SVC. No pneumothorax or overt pulmonary edema. The bones of the chest appear grossly intact. IMPRESSION: 1. Subtle ill-defined bibasilar predominant opacities may represent atelectasis versus a nonspecific infectious or inflammatory pneumonitis. 2. Trace left pleural effusion. ACT 112: Negative or not required by law. The above report was generated using voice recognition software. It may contain grammatical, syntax or spelling errors. Electronically signed by: Randy Mukherjee M.D. 10/02/2023 7:06 AM Abdomen/Pelvis CT 10/02/23 00:05 Exam(s): CT ABDOMEN + PELVIS Without Contrast EXAM: CT Abdomen and Pelvis Without Intravenous Contrast CLINICAL HISTORY: Reason for exam: hematuria, ams, recent stent placement. TECHNIQUE: Axial computed tomography images of the abdomen and pelvis without intravenous contrast. CTDI is 133.87 mGy and DLP is 3322.94 mGy-cm. Automated exposure control was utilized for the study. A dose lowering technique was utilized adhering to the principles of ALARA. COMPARISON: 09/17/23 FINDINGS: Lung bases: See below. Pleural space: Increased trace left pleural effusion. Mild groundglass attenuation pneumonia in the lung bases demonstrated. Mediastinum: Small hiatal hernia again noted. ABDOMEN: Liver: Unremarkable. Gallbladder and bile ducts: Metallic common bile duct stent redemonstrated and appears in good position. No significant intrahepatic ductal dilatation. Common bile duct remains mildly dilated, stable. No calcified stones. Pancreas: Unremarkable. No ductal dilation. Spleen: Unremarkable. No splenomegaly. Adrenals: Unremarkable. No mass. Kidneys and ureters: Interval placement of bilateral double-J ureteral stents which appear in good position. In the proximal right ureter, small, 4 mm calculus adjacent to the stent demonstrated. There is no hydronephrosis or perinephric fluid collection. Stomach and bowel: Unremarkable. No obstruction. Distal gastric stent redemonstrated, unchanged. PELVIS: Appendix: No findings to suggest acute appendicitis. Bladder: Unremarkable. No stones. Reproductive: Unremarkable as visualized. ABDOMEN and PELVIS: Intraperitoneal space: Increased, small abdominal and pelvic ascites. No free air. Bones/joints: No acute fracture. No dislocation. Soft tissues: Unremarkable. Vasculature: Unremarkable. No abdominal aortic aneurysm. Lymph nodes: Unremarkable. No enlarged lymph nodes. IMPRESSION: 1. Increased, small abdominal and pelvic ascites. 2. Increased trace left pleural effusion. Mild groundglass attenuation pneumonia in the lung bases demonstrated. 3. Interval placement of bilateral double-J ureteral stents which appear in good position. In the proximal right ureter, small, 4 mm calculus adjacent to the stent demonstrated. There is no hydronephrosis or perinephric fluid collection. Electronically signed by: Caesar Maynard MD 10/02/23 02:[address] 10/02/23 00:05 Exam(s): CT HEAD Without Contrast EXAM: CT Head Without Intravenous Contrast CLINICAL HISTORY: Reason for exam: ams. TECHNIQUE: Axial computed tomography images of the head/brain without intravenous contrast. CTDI is 133.87 mGy and DLP is 3322.94 mGy-cm. Automated exposure control was utilized for the study. A dose lowering technique was utilized adhering to the principles of ALARA. COMPARISON: No comparison made to prior CT scan of the head from September 17, 2023. FINDINGS: The study is limited secondary to motion artifact. Brain: There is a remote ischemic injury of the right frontal lobe with encephalomalacia and gliosis. No hemorrhage. No significant white matter disease. No edema. Ventricles: Mild ventriculomegaly. Bones/joints: Unremarkable. No acute fracture. Soft tissues: Unremarkable. Sinuses: Unremarkable as visualized. No acute sinusitis. Mastoid air cells: Unremarkable as visualized. No mastoid effusion. IMPRESSION: No evidence of acute intracranial pathology in this limited study. Electronically signed by: Tammie Lux MD 10/02/23 02:[address] 10/02/23 05:53 CT chest diagnostic wo con CT DOSE: 731.82 mGy.cm HISTORY: Shortness of breath. pneumonia? TECHNIQUE: Multiaxial CT images of the chest were performed without contrast. A dose lowering technique was utilized adhering to the principles of ALARA. COMPARISON: Abdomen and pelvis CT 10/02/2023. FINDINGS: Mild respiratory motion artifact. The central airways are patent. No pneumothorax. There is a trace left pleural effusion. The abdominal structures are better appreciated on the same day abdomen and pelvis CT. Ascites, a distal gastric/duodenal stent, and the common bile duct stent are partially visualized. Gastric wall thickening consistent with a nonspecific gastritis. There is a tiny hiatus hernia. Otherwise, normal caliber esophagus. Normal thyroid gland. A left jugular Port-A-Cath terminates in the SVC. Mild body wall edema is noted. No mediastinal or hilar lymphadenopathy. Mild calcified plaque within the normal caliber abdominal aorta. Mild distal paraesophageal edema. Moderate coronary artery calcifications. The heart is normal in size. There is a trace pericardial effusion. Decreased blood pool attenuation consistent with underlying anemia. No acute fractures. Punctate calcified granuloma within a few tiny nodular densities along the left major fissure. Interstitial thickening with small patchy groundglass densities within the bilateral lower lobes and posterior bilateral upper lobes. IMPRESSION: 1. Interstitial thickening with small patchy groundglass densities within the bilateral lower lobes and posterior upper lobes. This is nonspecific but favors a low-grade pneumonitis. Mild congestive change could also have a similar appearance. 2. Trace left pleural effusion. 3. Partially visualized ascites again noted. 4. Gastric wall thickening consistent with a nonspecific gastritis. 5. Additional findings as described above. ACT 112: Negative or not required by law. Electronically signed by: Keegan Galo M.D. 10/02/2023 2:15 PM PG Care Time/CCT Total # of Minutes Spent Total Time Spent with Patient: Total time spent is greater than 50% in coordination of care (as documented) at patient's floor/unit and/or counseling patient: I spent 85 minutes overall addressing this case: 10 min in medical data review/discussion with referring provider(s) and/or preparation for the visit 15 min in direct interaction with the patient/exam 40 min in Advance Care Planning/Goals of Care discussions as detailed above in note (must be >16min) 10 min in subsequent review and synthesis of assessment and plan 10 min communicating with other providers regarding the patient's case: primary team and nursing. Advanced Care Planning 07474 Advanced Care Planning 30 Min 84556 Advanced Care Planning Additional 30 [place] [address] IN/OBS CONSULT LVL 4,60M (25 - SIGNIFICANT, SEPARATELY IDENTIFIABLE ) Patient Type New Medical Decision Making High Complexity Diagnoses Weakness generalized R53.1 Cancer related pain G89.3 Severe muscle deconditioning R29.898 Advanced care planning/counseling discussion Z71.89 Palliative care by specialist Z51.5 Additional Codes Advanced Care Planning - 02367 Advanced Care Planning 30 Min: 58440 Advanced Care Planning 30 Min ([id number]) Advanced Care Planning - 67360 Advanced Care Planning Additional 30 Min: 42049 Advanced Care Planning Additional 30 Min ([id number])
[2023-10-05] MEDS: HYDROmorphone INJ 0.5 MG/0.5 ML SYR IV PRN (07:57)
--- NOTE | 2023-10-05 12:20 | Hospitalist Progress Note ---
Date of Service October 05, 2023 Assessment & Plan (1) AMS (altered mental status): Plan: Pt is a 58-year-old male with past med history significant for CVA with left hemiplegia, diabetes mellitus type 2, pancreatic cancer metastasized to the liver, CAD, hypertension, recent hospitalization from 07/28/2023 to 07/31/2023 for acute cholecystitis and required 2 PRBC during that admission, status post EUS guided GB drainage and Axios stent placement on 08/11/2023, and again was recently in the hospital for NATE and ureterolithiasis and pancolitis. Patient was s/p cystoscopy with bilateral stent insertion on September 17, 2023, was treated with 7- day course of IV Zosyn and during that admission he also had hematuria, confusion and pancytopenia thought to be from chemo, received Neupogen, s/p platelets transfusion for transient epistaxis, s/p 3 units of PRBCs hemoglobin was stable and his aspirin was held but Plavix was restarted and was discharged on September 28, 2022 was brought in by his because of altered mental status. Family had a discussion with palliative care on 10/04/23 and the patient was transitioned to comfort measures only with goal of SNF placement, family reportedly cannot take him home with hospice. He was previously treated for the following this admission: Acute metabolic encephalopathy Secondary to complicated UTI Complicated by advanced pancreatic cancer Empirically placed on cefepime and vanco blood and urine cultures have been negative CT head with no acute changes CT abd/pelvis with ureteral stents in place Possible pneumonia on ct abd/pevis CT chest-possible low-grade pneumonitis urology consulted, appreciate recs Palliative care consult for goals of care discussion Pt transitioned to comfort measures only Advanced pancreatic cancer with metastasis Follow-up with heme-onc Elevated LFTs-secondary to metastasis Not a candidate for chemotherapy Has had palliative care evaluation during last admission and wanted to have onc ology evaluation and treatment if possible Palliative care consulted for goals of care discussion once more Pt transitioned to comfort measures only NATE Creatinine 2.06 on admission Creatinine was 1.3 on September 27 IV fluids Avoid nephrotoxic agents Kidney function remains stable Palliative care consult for goals of care discussion Pt transitioned to comfort measures only Anemia Hemoglobin 9 Required PRBC transfusion last admission Aspirin was discontinued last admission Palliative care consult for goals of care discussion Pt transitioned to comfort measures only Hypertension Continue metoprolol succinate Held losartan intravenous Lopressor Palliative care consult for goals of care discussion Pt transitioned to comfort measures only Diabetes Hold metformin Reduce Lantus to 5 units daily as patient currently n.p.o. Sliding scale Palliative care consult for goals of care discussion Pt transitioned to comfort measures only CODE STATUS: Palliative care consult for goals of care discussion. Pt transitioned to comfort measures only on 10/03. Currently awaiting placement at SNF. Admission and Anticipated Discharge Date Admission Date: October 02, 2023 Subjective pt seen with family at bedside. eyes closed, laying in bed. Review of Systems Review of Systems: Unobtainable due to cognitive status Physical Exam Physical Exam: General: laying in bed Psych: mood and affect could not be determined HEENT: NC/AT
--- NOTE | 2023-10-06 13:26 | Hospitalist Progress Note ---
Date of Service October 06, 2023 Assessment & Plan (1) AMS (altered mental status): Plan: Pt is a 58-year-old male with past med history significant for CVA with left hemiplegia, diabetes mellitus type 2, pancreatic cancer metastasized to the liver, CAD, hypertension, recent hospitalization from 07/28/2023 to 07/31/2023 for acute cholecystitis and required 2 PRBC during that admission, status post EUS guided GB drainage and Axios stent placement on 08/11/2023, and again was recently in the hospital for NATE and ureterolithiasis and pancolitis. Patient was s/p cystoscopy with bilateral stent insertion on September 17, 2023, was treated with 7- day course of IV Zosyn and during that admission he also had hematuria, confusion and pancytopenia thought to be from chemo, received Neupogen, s/p platelets transfusion for transient epistaxis, s/p 3 units of PRBCs hemoglobin was stable and his aspirin was held but Plavix was restarted and was discharged on September 28, 2022 was brought in by his because of altered mental status. Family had a discussion with palliative care on 10/04/23 and the patient was transitioned to comfort measures only with goal of SNF placement, family reportedly cannot take him home with hospice. He was previously treated for the following this admission: Acute metabolic encephalopathy Secondary to complicated UTI Complicated by advanced pancreatic cancer Empirically placed on cefepime and vanco blood and urine cultures have been negative CT head with no acute changes CT abd/pelvis with ureteral stents in place Possible pneumonia on ct abd/pevis CT chest-possible low-grade pneumonitis urology consulted, appreciate recs Palliative care consult for goals of care discussion Pt transitioned to comfort measures only Advanced pancreatic cancer with metastasis Follow-up with heme-onc Elevated LFTs-secondary to metastasis Not a candidate for chemotherapy Has had palliative care evaluation during last admission and wanted to have onc ology evaluation and treatment if possible Palliative care consulted for goals of care discussion once more Pt transitioned to comfort measures only NATE Creatinine 2.06 on admission Creatinine was 1.3 on September 27 IV fluids Avoid nephrotoxic agents Kidney function remains stable Palliative care consult for goals of care discussion Pt transitioned to comfort measures only Anemia Hemoglobin 9 Required PRBC transfusion last admission Aspirin was discontinued last admission Palliative care consult for goals of care discussion Pt transitioned to comfort measures only Hypertension Continue metoprolol succinate Held losartan intravenous Lopressor Palliative care consult for goals of care discussion Pt transitioned to comfort measures only Diabetes Hold metformin Reduce Lantus to 5 units daily as patient currently n.p.o. Sliding scale Palliative care consult for goals of care discussion Pt transitioned to comfort measures only CODE STATUS: Palliative care consult for goals of care discussion. Pt transitioned to comfort measures only on 10/03. Currently awaiting placement at SNF. Admission and Anticipated Discharge Date Admission Date: October 02, 2023 Subjective pt seen with at bedside. Holding hands. Eyes open Review of Systems Review of Systems: Unobtainable due to mental health condition Physical Exam Physical Exam: General: laying in bed Psych: mood and affect could not be determined HEENT: NC/AT Results & Data Results & Data Vital Signs (Past 12 Hours) Vital Signs O2 Del Method 10/06/23 07:41 Room Air
--- NOTE | 2023-10-06 15:56 | Palliative Care Progress Note ---
Date of Service October 06, 2023 Assessment & Plan (1) Cancer related pain: (2) Encounter for end of life care: (3) Weakness generalized: (4) Severe muscle deconditioning: (5) Palliative care by specialist: Plan PHYSICIAN PEDIATRICIAN No changes today seeking placement, cannot take pt home, care mgt to assist TS 45min Thank you for allowing us to participate in the ongoing care of this patient. Dr. Elissa Arnold DNP Palliative Care Admission and Anticipated Discharge Date Admission Date: October 02, 2023 Subjective PHYSICIAN PEDIATRICIAN resting peacefully Had 7 doses Dilaudid 0.5mg and 1 dose Ativan IV at bedside overnight nurse paged me this AM with request from family to provide EOL materials with more information reports occ he opens eyes still crying out at time, moaning and grimacing will say "home" repeatedly" Mom went home for rest and will retrun later planning t stay thru evening she is tired appearing and tearful Review of Systems Review of Systems: Unobtainable due to reduced consciousness Physical Exam Physical Exam: Frail, chronically ill-appearing male appears older than stated age, resting supine less agitated today bitemp wasting +generalized weakness + pale, ashen complexion. resp effort easy at rest no apneas noted HR s1s2 unable to follow commands contracture LUE Results & Data Vital Signs (Past 12 Hours) Vital Signs O2 Del Method 10/06/23 07:41 Room Air PG Care Time/CCT Total # of Minutes Spent Total Time Spent: 45 Total Time Spent with Patient: Total time spent is greater than 50% in coordination of care (as documented) at patient's floor/unit and/or counseling patient: Coding [place] [address] SUB INP/OBS CARE 3/50MIN Patient Type Established History Comprehensive Exam Comprehensive Medical Decision Making High Complexity Diagnoses Cancer related pain G89.3 Encounter for end of life care Z51.5 Weakness generalized R53.1 Severe muscle deconditioning R29.898 Palliative care by specialist Z51.5
[2023-10-07] MEDS: GLYCOPYRROLATE 0.2 MG/ML VIAL IV PRN (10:23)
--- NOTE | 2023-10-07 16:52 | Hospitalist Progress Note ---
Date of Service October 07, 2023 Assessment & Plan (1) AMS (altered mental status): Plan: Pt is a 58-year-old male with past med history significant for CVA with left hemiplegia, diabetes mellitus type 2, pancreatic cancer metastasized to the liver, CAD, hypertension, recent hospitalization from 07/28/2023 to 07/31/2023 for acute cholecystitis and required 2 PRBC during that admission, status post EUS guided GB drainage and Axios stent placement on 08/11/2023, and again was recently in the hospital for NATE and ureterolithiasis and pancolitis. Patient was s/p cystoscopy with bilateral stent insertion on September 17, 2023, was treated with 7- day course of IV Zosyn and during that admission he also had hematuria, confusion and pancytopenia thought to be from chemo, received Neupogen, s/p platelets transfusion for transient epistaxis, s/p 3 units of PRBCs hemoglobin was stable and his aspirin was held but Plavix was restarted and was discharged on September 28, 2022 was brought in by his because of altered mental status. Family had a discussion with palliative care on 10/04/23 and the patient was transitioned to comfort measures only with goal of SNF placement, family reportedly cannot take him home with hospice. He was previously treated for the following this admission: Acute metabolic encephalopathy Secondary to complicated UTI Complicated by advanced pancreatic cancer Empirically placed on cefepime and vanco blood and urine cultures have been negative CT head with no acute changes CT abd/pelvis with ureteral stents in place Possible pneumonia on ct abd/pevis CT chest-possible low-grade pneumonitis urology consulted, appreciate recs Palliative care consult for goals of care discussion Pt transitioned to comfort measures only Advanced pancreatic cancer with metastasis Follow-up with heme-onc Elevated LFTs-secondary to metastasis Not a candidate for chemotherapy Has had palliative care evaluation during last admission and wanted to have onc ology evaluation and treatment if possible Palliative care consulted for goals of care discussion once more Pt transitioned to comfort measures only NATE Creatinine 2.06 on admission Creatinine was 1.3 on September 27 IV fluids Avoid nephrotoxic agents Kidney function remains stable Palliative care consult for goals of care discussion Pt transitioned to comfort measures only Anemia Hemoglobin 9 Required PRBC transfusion last admission Aspirin was discontinued last admission Palliative care consult for goals of care discussion Pt transitioned to comfort measures only Hypertension Continue metoprolol succinate Held losartan intravenous Lopressor Palliative care consult for goals of care discussion Pt transitioned to comfort measures only Diabetes Hold metformin Reduce Lantus to 5 units daily as patient currently n.p.o. Sliding scale Palliative care consult for goals of care discussion Pt transitioned to comfort measures only CODE STATUS: Palliative care consult for goals of care discussion. Pt transitioned to comfort measures only on 10/03. Currently awaiting placement at SNF. Admission and Anticipated Discharge Date Admission Date: October 02, 2023 Subjective pt seen with mother at bedside. Mother states she wants pt to stay in the hospital. Review of Systems Review of Systems: All systems reviewed & are unremarkable except as noted in Subjective Physical Exam Physical Exam: General: laying in bed Psych: mood and affect could not be determined HEENT: NC/AT Results & Data Results & Data Vital Signs (Past 12 Hours) Vital Signs O2 Del Method 10/07/23 08:00 Room Air
--- NOTE | 2023-10-08 13:44 | Hospitalist Progress Note ---
Date of Service October 08, 2023 Assessment & Plan (1) AMS (altered mental status): Plan: Pt is a 58-year-old male with past med history significant for CVA with left hemiplegia, diabetes mellitus type 2, pancreatic cancer metastasized to the liver, CAD, hypertension, recent hospitalization from 07/28/2023 to 07/31/2023 for acute cholecystitis and required 2 PRBC during that admission, status post EUS guided GB drainage and Axios stent placement on 08/11/2023, and again was recently in the hospital for NATE and ureterolithiasis and pancolitis. Patient was s/p cystoscopy with bilateral stent insertion on September 17, 2023, was treated with 7- day course of IV Zosyn and during that admission he also had hematuria, confusion and pancytopenia thought to be from chemo, received Neupogen, s/p platelets transfusion for transient epistaxis, s/p 3 units of PRBCs hemoglobin was stable and his aspirin was held but Plavix was restarted and was discharged on September 28, 2022 was brought in by his because of altered mental status. Family had a discussion with palliative care on 10/04/23 and the patient was transitioned to comfort measures only with goal of SNF placement, family reportedly cannot take him home with hospice. Currently awaiting placement. He was previously treated for the following this admission: Acute metabolic encephalopathy Secondary to complicated UTI Complicated by advanced pancreatic cancer Empirically placed on cefepime and vanco blood and urine cultures have been negative CT head with no acute changes CT abd/pelvis with ureteral stents in place Possible pneumonia on ct abd/pevis CT chest-possible low-grade pneumonitis urology consulted, appreciate recs Palliative care consult for goals of care discussion Pt transitioned to comfort measures only Advanced pancreatic cancer with metastasis Follow-up with heme-onc Elevated LFTs-secondary to metastasis Not a candidate for chemotherapy Has had palliative care evaluation during last admission and wanted to have oncology evaluation and treatment if possible Palliative care consulted for goals of care discussion once more Pt transitioned to comfort measures only NATE Creatinine 2.06 on admission Creatinine was 1.3 on September 27 IV fluids Avoid nephrotoxic agents Kidney function remains stable Palliative care consult for goals of care discussion Pt transitioned to comfort measures only Anemia Hemoglobin 9 Required PRBC transfusion last admission Aspirin was discontinued last admission Palliative care consult for goals of care discussion Pt transitioned to comfort measures only Hypertension Continue metoprolol succinate Held losartan intravenous Lopressor Palliative care consult for goals of care discussion Pt transitioned to comfort measures only Diabetes Hold metformin Reduce Lantus to 5 units daily as patient currently n.p.o. Sliding scale Palliative care consult for goals of care discussion Pt transitioned to comfort measures only CODE STATUS: Palliative care consult for goals of care discussion. Pt transitioned to comfort measures only on 10/03. Currently awaiting placement at SNF. Admission and Anticipated Discharge Date Admission Date: October 02, 2023 Subjective pt seen with at bedside. 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 Review of Systems Review of Systems: Unobtainable due to cognitive status Physical Exam Physical Exam: General: laying in bed Psych: mood and affect could not be determined HEENT: NC/AT Results & Data Results & Data Vital Signs (Past 12 Hours) Vital Signs O2 Del Method 10/08/23 08:00 Room Air
--- NOTE | 2023-10-09 10:51 | Hospitalist Progress Note ---
Date of Service October 09, 2023 Assessment & Plan (1) AMS (altered mental status): Plan: Pt is a 58-year-old male with past med history significant for CVA with left hemiplegia, diabetes mellitus type 2, pancreatic cancer metastasized to the liver, CAD, hypertension, recent hospitalization from 07/28/2023 to 07/31/2023 for acute cholecystitis and required 2 PRBC during that admission, status post EUS guided GB drainage and Axios stent placement on 08/11/2023, and again was recently in the hospital for NATE and ureterolithiasis and pancolitis. Patient was s/p cystoscopy with bilateral stent insertion on September 17, 2023, was treated with 7- day course of IV Zosyn and during that admission he also had hematuria, confusion and pancytopenia thought to be from chemo, received Neupogen, s/p platelets transfusion for transient epistaxis, s/p 3 units of PRBCs hemoglobin was stable and his aspirin was held but Plavix was restarted and was discharged on September 28, 2022 was brought in by his because of altered mental status. Family had a discussion with palliative care on 10/04/23 and the patient was transitioned to comfort measures only with goal of SNF placement, family reportedly cannot take him home with hospice. Currently awaiting placement. He was previously treated for the following this admission: Acute metabolic encephalopathy Secondary to complicated UTI Complicated by advanced pancreatic cancer Empirically placed on cefepime and vanco blood and urine cultures have been negative CT head with no acute changes CT abd/pelvis with ureteral stents in place Possible pneumonia on ct abd/pevis CT chest-possible low-grade pneumonitis urology consulted, appreciate recs Palliative care consult for goals of care discussion Pt transitioned to comfort measures only Advanced pancreatic cancer with metastasis Follow-up with heme-onc Elevated LFTs-secondary to metastasis Not a candidate for chemotherapy Has had palliative care evaluation during last admission and wanted to have oncology evaluation and treatment if possible Palliative care consulted for goals of care discussion once more Pt transitioned to comfort measures only NATE Creatinine 2.06 on admission Creatinine was 1.3 on September 27 IV fluids Avoid nephrotoxic agents Kidney function remains stable Palliative care consult for goals of care discussion Pt transitioned to comfort measures only Anemia Hemoglobin 9 Required PRBC transfusion last admission Aspirin was discontinued last admission Palliative care consult for goals of care discussion Pt transitioned to comfort measures only Hypertension Continue metoprolol succinate Held losartan intravenous Lopressor Palliative care consult for goals of care discussion Pt transitioned to comfort measures only Diabetes Hold metformin Reduce Lantus to 5 units daily as patient currently n.p.o. Sliding scale Palliative care consult for goals of care discussion Pt transitioned to comfort measures only CODE STATUS: Palliative care consult for goals of care discussion. Pt transitioned to comfort measures only on 10/03. Currently awaiting placement at SNF. Admission and Anticipated Discharge Date Admission Date: October 02, 2023 Subjective pt seen with at bedside. 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 Review of Systems Review of Systems: Unobtainable due to cognitive status Physical Exam Physical Exam: General: laying in bed Psych: mood and affect could not be determined HEENT: NC/AT
[2023-10-09] MEDS: LORazepam 2 MG in SYRINGE 1 ML IV PRN (11:37)
--- NOTE | 2023-10-10 11:38 | Hospitalist Progress Note ---
Date of Service October 10, 2023 Assessment & Plan (1) AMS (altered mental status): Plan: Pt is a 58-year-old male with past med history significant for CVA with left hemiplegia, diabetes mellitus type 2, pancreatic cancer metastasized to the liver, CAD, hypertension, recent hospitalization from 07/28/2023 to 07/31/2023 for acute cholecystitis and required 2 PRBC during that admission, status post EUS guided GB drainage and Axios stent placement on 08/11/2023, and again was recently in the hospital for NATE and ureterolithiasis and pancolitis. Patient was s/p cystoscopy with bilateral stent insertion on September 17, 2023, was treated with 7- day course of IV Zosyn and during that admission he also had hematuria, confusion and pancytopenia thought to be from chemo, received Neupogen, s/p platelets transfusion for transient epistaxis, s/p 3 units of PRBCs hemoglobin was stable and his aspirin was held but Plavix was restarted and was discharged on September 28, 2022 was brought in by his because of altered mental status. Family had a discussion with palliative care on 10/04/23 and the patient was transitioned to comfort measures only with goal of SNF placement, family reportedly cannot take him home with hospice. Currently awaiting placement. He was previously treated for the following this admission: Acute metabolic encephalopathy Secondary to complicated UTI Complicated by advanced pancreatic cancer Empirically placed on cefepime and vanco blood and urine cultures have been negative CT head with no acute changes CT abd/pelvis with ureteral stents in place Possible pneumonia on ct abd/pevis CT chest-possible low-grade pneumonitis urology consulted, appreciate recs Palliative care consult for goals of care discussion Pt transitioned to comfort measures only Advanced pancreatic cancer with metastasis Follow-up with heme-onc Elevated LFTs-secondary to metastasis Not a candidate for chemotherapy Has had palliative care evaluation during last admission and wanted to have oncology evaluation and treatment if possible Palliative care consulted for goals of care discussion once more Pt transitioned to comfort measures only NATE Creatinine 2.06 on admission Creatinine was 1.3 on September 27 IV fluids Avoid nephrotoxic agents Kidney function remains stable Palliative care consult for goals of care discussion Pt transitioned to comfort measures only Anemia Hemoglobin 9 Required PRBC transfusion last admission Aspirin was discontinued last admission Palliative care consult for goals of care discussion Pt transitioned to comfort measures only Hypertension Continue metoprolol succinate Held losartan intravenous Lopressor Palliative care consult for goals of care discussion Pt transitioned to comfort measures only Diabetes Hold metformin Reduce Lantus to 5 units daily as patient currently n.p.o. Sliding scale Palliative care consult for goals of care discussion Pt transitioned to comfort measures only CODE STATUS: Palliative care consult for goals of care discussion. Pt transitioned to comfort measures only on 10/03. Currently awaiting placement at SNF. Admission and Anticipated Discharge Date Admission Date: October 02, 2023 Subjective pt seen with at bedside. 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 Review of Systems Review of Systems: Unobtainable due to cognitive status Physical Exam Physical Exam: General: laying in bed Psych: mood and affect could not be determined HEENT: NC/AT Results & Data Results & Data Vital Signs (Past 12 Hours) Vital Signs O2 Del Method 10/10/23 08:20 Room Air 10/09/23 23:45 Room Air
[2023-10-10] MEDS ORDERED: LORazepam 1.5 MG in SYRINGE 0.75 ML IV PRN (15:48)
--- NOTE | 2023-10-10 16:00 | Palliative Care Progress Note ---
Date of Service October 10, 2023 Assessment & Plan (1) Cancer related pain: (2) Insomnia due to medical condition: Plan: will add a scheduled dose of ativan 1mg IV at bedtime may have some element of hypoactive delirium (3) Delirium secondary to multiple medical problems: (4) Weakness generalized: (5) Encounter for end of life care: (6) Severe muscle deconditioning: (7) Palliative care by specialist: Plan ACP x 20min face to face with family (mom, , aunt) at bedside Mom wants him to stay here bc they do not want to pay SNF fees and do not feel they can care for him at home with hospice, more directly indicates she does not want to be the one caring for him when he dies and wishes there was a miracle that could happen to make this all go away and he comes home better. We discussed the unpleasant facts of chronic care needs once stable and not requiring high acuity /intensity care of a hospital. We revisited home hospice but they decline. We spoke about SNF which was the plan of care they wanted when they elected comfort care last week. Mom and are forthright about wanting to avoid the costs of paying for SNF care. I told them about the potential for insurance to also decline covering portion of current admission if their UR teams determine he does not need this high level of care and reasonable dc options were decline. Reinforced this is not an [facility] decision but it is that of the insurance. 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 Extensive psychosocial support provided. Internet Media Planner notified to assist Mom with her continued suffering. is clear that she is not romel based and does not want spiritual care. He is having agitation not relieved enough by current Ativan dose so i increased prn to 1.5mg IV and also added a QHS 1mg dose to help with improving period of sleep, per family he has not closed his eyes/slept for over 5 days. Thank you for allowing us to participate in the ongoing care of this patient. Please don't hesitate to call or page with any additional concerns. Elissa Arnold DNP Palliative Care Admission and Anticipated Discharge Date Admission Date: October 02, 2023 Phan Benz remains on CERTIFIED MAINTENANCE WELDER , mother and family friend at bedside, tearful Mom has been staying overnight Notes he is not sleeping for days, more agitated at times. Ativan helps but does not take away enough of the agitation. Seemed to help him nap for a few hours but in general has not slept > 5 days. urine cloudier he opens eyes to verbal in room but is not tracking or responding Review of Systems Review of Systems: Unobtainable due to cognitive status and Unobtainable due to reduced consciousness Physical Exam Physical Exam: Frail, chronically ill-appearing male appears older than stated age, resting on his right side fitfully awake bitemp wasting +generalized weakness + pale, appears yellow in complexion resp effort slower than previous visit no apnea noted HR s1s2 unable to follow commands contracture LUE Results & Data Vital Signs (Past 12 Hours) Vital Signs O2 Del Method 10/10/23 08:20 Room Air Laboratory Results CERTIFIED MAINTENANCE WELDER Diagnostic Findings CERTIFIED MAINTENANCE WELDER PG Care Time/CCT Total # of Minutes Spent Total Time Spent: 60 Total Time Spent with Patient: Total time spent is greater than 50% in coordination of care (as documented) at patient's floor/unit and/or counseling patient: Advanced Care Planning 86685 Advanced Care Planning 30 Min [place] [address] SUB INP/OBS CARE 3/50MIN Patient Type Established History Comprehensive Exam Comprehensive Medical Decision Making High Complexity Diagnoses Cancer related pain G89.3 Insomnia due to medical condition G47.01 Delirium secondary to multiple medical problems F05 Weakness generalized R53.1 Encounter for end of life care Z51.5 Severe muscle deconditioning R29.898 Palliative care by specialist Z51.5 Additional Codes Advanced Care Planning - 90247 Advanced Care Planning 30 Min: 05295 Advanced Care Planning 30 Min ([id number])
[2023-10-10] MEDS: LORazepam 1 MG in SYRINGE 0.5 ML IV SCH (21:34)
--- NOTE | 2023-10-11 12:11 | Palliative Care Progress Note ---
Date of Service October 11, 2023 Assessment & Plan (1) Cancer related pain: Plan: Demar has used 6mg IV Dilaudid in past 24 hr, family does not feel pain is well controlled Dilaudid 6mg IV = MS 30mg equiv, therefore will begin TDF 25mcg/hr q72h, provided rationale to family to initiate long acting medication (2) Terminal respiratory secretions: Plan: Discussed robinul with family Mom states a family member told them "don't let them use that drug, it will make his heart work harder and prolong his dying." education provided. Mom in agreement for prn robinul (3) Insomnia due to medical condition: Plan: Ativan at bedtime, but I have moved this to q6h schedule for improving agitation and comfort (4) Delirium secondary to multiple medical problems: (5) Weakness generalized: (6) Encounter for end of life care: (7) Severe muscle deconditioning: (8) Palliative care by specialist: Plan As above No longer taking PO< all PO meds dc. Updated nursing and primary team Thank you for allowing us to participate in the ongoing care of this patient. Please don't hesitate to call or page with any additional concerns. Dr. Elissa Arnold DNP Director, Palliative Care Admission and Anticipated Discharge Date Admission Date: October 02, 2023 Subjective at bedside pt awake but not speaking, occ moaning and crying out with grimacing and zeenat owing of brow noted, he will also kick out his RLE with a shaking manner nursing shares family has been refusing medications at times most recently refused to allow Robinul for secretion mgt, patient has been gurgling. Review of Systems Review of Systems: Unobtainable due to cognitive status Physical Exam Physical Exam: Frail, chronically ill-appearing male appears older than stated age, resting on his right side fitfully awake bitemp wasting +generalized weakness + pale, appears yellow in complexion resp effort increased during pain flare, improved after medication no apnea noted HR s1s2 unable to follow commands contracture LUE Results & Data Vital Signs (Past 12 Hours) Vital Signs O2 Del Method 10/11/23 07:30 Room Air Laboratory Results MEDICAL RECRUITER Diagnostic Findings MEDICAL RECRUITER PG Care Time/CCT Total # of Minutes Spent Total Time Spent: 65 Total Time Spent with Patient: Total time spent is greater than 50% in coordination of care (as documented) at patient's floor/unit and/or counseling patient: [place] [address] SUB INP/OBS CARE 350MIN Patient Type Established History Comprehensive Exam Comprehensive Medical Decision Making High Complexity Diagnoses Cancer related pain G89.3 Terminal respiratory secretions R09.89 Insomnia due to medical condition G47.01 Delirium secondary to multiple medical problems F05 Weakness generalized R53.1 Encounter for end of life care Z51.5 Severe muscle deconditioning R29.898 Palliative care by specialist Z51.5
[2023-10-11] MEDS: LORazepam 1 MG in SYRINGE 0.5 ML IV SCH (14:05)
--- NOTE | 2023-10-11 17:31 | Hospitalist Progress Note ---
Date of Service October 11, 2023 Assessment & Plan (1) AMS (altered mental status): Plan: Per previous hospitalist w/ addendum: Pt is a 58-year-old male with past med history significant for CVA with left hemiplegia, diabetes mellitus type 2, pancreatic cancer metastasized to the liver, CAD, hypertension, recent hospitalization from 07/28/2023 to 07/31/2023 for acute cholecystitis and required 2 PRBC during that admission, status post EUS guided GB drainage and Axios stent placement on 08/11/2023, and again was recently in the hospital for NATE and ureterolithiasis and pancolitis. Patient was s/p cystoscopy with bilateral stent insertion on September 17, 2023, was treated with 7- day course of IV Zosyn and during that admission he also had hematuria, confusion and pancytopenia thought to be from chemo, received Neupogen, s/p platelets transfusion for transient epistaxis, s/p 3 units of PRBCs hemoglobin was stable and his aspirin was held but Plavix was restarted and was discharged on September 28, 2022 was brought in by his because of altered mental status. Family had a discussion with palliative care on 10/04/23 and the patient was transitioned to comfort measures only with goal of SNF placement, family reportedly cannot take him home with hospice. Currently awaiting placement. He was previously treated for the following this admission: Acute metabolic encephalopathy Secondary to complicated UTI Complicated by advanced pancreatic cancer Empirically placed on cefepime and vanco blood and urine cultures have been negative CT head with no acute changes CT abd/pelvis with ureteral stents in place Possible pneumonia on ct abd/pevis CT chest-possible low-grade pneumonitis urology consulted, appreciate recs Palliative care consult for goals of care discussion Pt transitioned to comfort measures only Advanced pancreatic cancer with metastasis Follow-up with heme-onc Elevated LFTs-secondary to metastasis Not a candidate for chemotherapy Has had palliative care evaluation during last admission and wanted to have oncology evaluation and treatment if possible Palliative care consulted for goals of care discussion once more Pt transitioned to comfort measures only Discussed with palliative med today - 10/11/23 - medications adjusted NATE Creatinine 2.06 on admission Creatinine was 1.3 on September 27 IV fluids Avoid nephrotoxic agents Kidney function remains stable Palliative care consult for goals of care discussion Pt transitioned to comfort measures only Anemia Hemoglobin 9 Required PRBC transfusion last admission Aspirin was discontinued last admission Palliative care consult for goals of care discussion Pt transitioned to comfort measures only Hypertension Continue metoprolol succinate Held losartan intravenous Lopressor Palliative care consult for goals of care discussion Pt transitioned to comfort measures only Diabetes Hold metformin Reduce Lantus to 5 units daily as patient currently n.p.o. Sliding scale Palliative care consult for goals of care discussion Pt transitioned to comfort measures only CODE STATUS: Palliative care consult for goals of care discussion. Pt transitioned to comfort measures only on 10/03. Currently awaiting placement at SNF. 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, pancreatic ca Pt's present at bedside Pt awake but not speaking, currently in NAD but per requires pain meds more frequently now Palliative medicine consulted and discussed with - medications adjusted Review of Systems Review of Systems: Unobtainable due to cognitive status Physical Exam Constitutional: General Appearance: slim M, chronically ill appearing, pale, in no apparent distress Head: NC/AT Respiratory/Chest: Normal breath sounds, CTA, No accessory muscle use Cardiovascular: S1, S2, No murmur Abdomen/GI:Soft, Bowel sounds present Extremities/Musculoskeletal:normal inspection, no LE edema Neurologic/Psych: awake, does not follow commands or answer questions, chronic left hemiplegia Skin: warm, dry, pale Results & Data Results & Data Vital Signs (Past 12 Hours) Vital Signs O2 Del Method 10/11/23 07:30 Room Air Medications Administered Current Inpatient Medications Glycopyrrolate (Glycopyrrolate 0.2 Mg/Ml Vial) 0.4 mg IV Q4H PRN PRN Reason: Secretions or Pulm Congestion Stop: 11/03/23 12:52 Last Admin: 10/11/23 13:44 Dose: 0.4 mg Hydromorphone HCl (Hydromorphone Inj 0.5 Mg/0.5 Ml Syr) 0.5 mg IV Q15M PRN PRN Reason: Pain or Respiratory Distress Stop: 10/18/23 12:52 Last Admin: 10/11/23 16:33 Dose: 0.5 mg Lorazepam 2 mg/ Syringe 2 mls @ 2 mls/min IV Q5M PRN PRN Reason: myoclonus, seizure Lorazepam 1.5 mg/ Syringe 1.5 mls @ 2 mls/min IV Q4H PRN; Protocol PRN Reason: Anxiety/Agitation Stop: 11/03/23 12:52 Lorazepam 1 mg/ Syringe 1 mls @ 2 mls/min IV Q6H [facility] Stop: 11/10/23 12:29 Last Admin: 10/11/23 14:05 Dose: 2 mls/min Lidocaine (Lidocaine 5% 1 Patch) 1 patch TD QAM [facility] Stop: 11/01/23 14:59 Last Admin: 10/11/23 10:11 Dose: Not Given Lidocaine/Prilocaine (Lidocaine/Prilocaine 2.5% Ea Crm) 1 each EXT DAILY PRN PRN Reason: FOR PORT ACCESS/COVER AFTER AP Stop: 11/01/23 05:52 Miscellaneous (Remove Lidoderm Patch) 1 each N/A DAILY@2100 [facility] Stop: 11/01/23 20:59 Last Admin: 10/10/23 22:19 Dose: Not Given Pantoprazole Sodium (Pantoprazole 40 Mg Tab) 40 mg PO BID [facility] Stop: 11/01/23 08:59 Last Admin: 10/03/23 21:05 Dose: Not Given
--- NOTE | 2023-10-12 07:17 | Death Pronouncement Note ---
Date of Service October 12, 2023 Pronouncement Note Admission Date October 02, 2023 Date and Time of Date of : 10/12/23 Time of : 06:42 Additional Data Confirmation of : no pulse, no respirations, no heart sounds and pupils fixed and dilated Pronouncement Performed By: Attending Physician Family: at bedside Attending physician: Tha Lucas MD
--- NOTE | 2023-10-12 08:34 | Discharge Summary ---
Date of Service October 12, 2023 Admission HPI Per Admitting Provider 58-year-old male with past med history significant for CVA with left hemiplegia, diabetes mellitus type 2, pancreatic cancer metastasized to the liver, CAD, hypertension, Recent hospitalization from 07/28/2023 to 07/31/2023 for acute cholecystitis and required 2 PRBC during that admission, status post EUS guided GB drainage and Axios stent placement on 08/11/2023, and again was recently in the hospital for NATE and ureterolithiasis and pancolitis and patient was s/p cystoscopy with bilateral stent insertion on September 17, 2023 was treated with 7- day course of IV Zosyn and during that admission he also had hematuria, conf usion and pancytopenia thought to be from chemo, received Neupogen, s/p platelets transfusion for transient epistaxis, s/p 3 units of PRBCs hemoglobin was stable and his aspirin was held but Plavix was restarted and was discharged on September 28, 2022 was brought in by his today because of altered mental status. Patient seems confused since last night and in the morning also was getting confused and confusion getting progressively worse so was brought to the hospital. Patient was restless in the ER and received Ativan and currently very drowsy. Could not get a get history from the patient. Tried to call the and could not reach her currently. Hemodynamics are okay. Past medical history. As mentioned above Past surgical history. S/p tonsillectomy adenoidectomy. S/p carotid endarterectomy. Social history. No smoking. Simply drinks alcohol 4-5 beers daily per previous H&P. No substance abuse. Family history. Mother had diabetes Admission Exam Per Admitting Provider General- Drowsy. Head- atraumatic Eyes- PERRL. Lungs- clear to auscultation no wheezing or crackles Heart- regular rhythm; no murmur, no gallop. Abdomen- normal bowel sounds, soft, no distension Extremities- no pretibial edema, no erythema Neuro-Drowsy. Not responding to touch or painful stimuli Principal Diagnosis Pancreatic cancer with metastases Discharge Exam Date of : 10/12/23 Time of : 06:42 Confirmation of : no pulse, no respirations, no heart sounds and pupils fixed and dilated Pronouncement Performed By: Attending Physician Family: at bedside Attending physician: Tha Lucas MD Discharge Data Allergies Allergy/AdvReac Type Severity Reaction Status Date / Time No Known Allergies Allergy Verified 10/02/23 00:17 Consultations 10/02/23 03:14 ED Decision to Admit Stat 10/03/23 11:40 Consult Palliative Care Routine Ordered Studies 10/02/23 00:05 CT abd pelvis wo con Stat FINDINGS: Lung bases: See below. Pleural space: Increased trace left pleural effusion. Mild groundglass attenuation pneumonia in the lung bases demonstrated. Mediastinum: Small hiatal hernia again noted. ABDOMEN: Liver: Unremarkable. Gallbladder and bile ducts: Metallic common bile duct stent redemonstrated and appears in good position. No significant intrahepatic ductal dilatation. Common bile duct remains mildly dilated, stable. No calcified stones. Pancreas: Unremarkable. No ductal dilation. Spleen: Unremarkable. No splenomegaly. Adrenals: Unremarkable. No mass. Kidneys and ureters: Interval placement of bilateral double-J ureteral stents which appear in good position. In the proximal right ureter, small, 4 mm calculus adjacent to the stent demonstrated. There is no hydronephrosis or perinephric fluid collection. Stomach and bowel: Unremarkable. No obstruction. Distal gastric stent redemonstrated, unchanged. PELVIS: Appendix: No findings to suggest acute appendicitis. Bladder: Unremarkable. No stones. Reproductive: Unremarkable as visualized. ABDOMEN and PELVIS: Intraperitoneal space: Increased, small abdominal and pelvic ascites. No free air. Bones/joints: No acute fracture. No dislocation. Soft tissues: Unremarkable. Vasculature: Unremarkable. No abdominal aortic aneurysm. Lymph nodes: Unremarkable. No enlarged lymph nodes. IMPRESSION: 1. Increased, small abdominal and pelvic ascites. 2. Increased trace left pleural effusion. Mild groundglass attenuation pneumonia in the lung bases demonstrated. 3. Interval placement of bilateral double-J ureteral stents which appear in good position. In the proximal right ureter, small, 4 mm calculus adjacent to the stent demonstrated. There is no hydronephrosis or perinephric fluid collection. CT head/brain wo con Stat FINDINGS: The study is limited secondary to motion artifact. Brain: There is a remote ischemic injury of the right frontal lobe with encephalomalacia and gliosis. No hemorrhage. No significant white matter disease. No edema. Ventricles: Mild ventriculomegaly. Bones/joints: Unremarkable. No acute fracture. Soft tissues: Unremarkable. Sinuses: Unremarkable as visualized. No acute sinusitis. Mastoid air cells: Unremarkable as visualized. No mastoid effusion. IMPRESSION: No evidence of acute intracranial pathology in this limited study. 10/02/23 05:53 CT chest diagnostic wo con Urgent FINDINGS: Mild respiratory motion artifact. The central airways are patent. No pneumothorax. There is a trace left pleural effusion. The abdominal structures are better appreciated on the same day abdomen and pelvis CT. Ascites, a distal gastric/duodenal stent, and the common bile duct stent are partially visualized. Gastric wall thickening consistent with a nonspecific gastritis. There is a tiny hiatus hernia. Otherwise, normal caliber esophagus. Normal thyroid gland. A left jugular Port-A-Cath terminates in the SVC. Mild body wall edema is noted. No mediastinal or hilar lymphadenopathy. Mild calcified plaque within the normal caliber abdominal aorta. Mild distal paraesophageal edema. Moderate coronary artery calcifications. The heart is normal in size. There is a trace pericardial effusion. Decreased blood pool attenuation consistent with underlying anemia. No acute fractures. Punctate calcified granuloma within a few tiny nodular densities along the left major fissure. Interstitial thickening with small patchy groundglass densities within the bilateral lower lobes and posterior bilateral upper lobes. IMPRESSION: 1. Interstitial thickening with small patchy groundglass densities within the bilateral lower lobes and posterior upper lobes. This is nonspecific but favors a low-grade pneumonitis. Mild congestive change could also have a similar appearance. 2. Trace left pleural effusion. 3. Partially visualized ascites again noted. 4. Gastric wall thickening consistent with a nonspecific gastritis. 5. Additional findings as described above. Hospital Course (1) AMS (altered mental status): Per previous hospitalist w/ addendum: Pt is a 58-year-old male with past med history significant for CVA with left hemiplegia, diabetes mellitus type 2, pancreatic cancer metastasized to the liver, CAD, hypertension, recent hospitalization from 07/28/2023 to 07/31/2023 for acute cholecystitis and required 2 PRBC during that admission, status post EUS guided GB drainage and Axios stent placement on 08/11/2023, and again was recently in the hospital for NATE and ureterolithiasis and pancolitis. Patient was s/p cystoscopy with bilateral stent insertion on September 17, 2023, was treated with 7-day course of IV Zosyn and during that admission he also had hematuria, confusion and pancytopenia thought to be from chemo, received Neupogen, s/p platelets transfusion for transient epistaxis, s/p 3 units of PRBCs hemoglobin was stable and his aspirin was held but Plavix was restarted and was discharged on September 28, 2022 was brought in by his because of altered mental status. Family had a discussion with palliative care on 10/04/23 and the patient was transitioned to comfort measures only with goal of SNF placement, family reportedly cannot take him home with hospice. Patient on 10/12/2023 6:42 AM. He was previously treated for the following this admission: Acute metabolic encephalopathy Secondary to complicated UTI Complicated by advanced pancreatic cancer Empirically placed on cefepime and vanco blood and urine cultures have been negative CT head with no acute changes CT abd/pelvis with ureteral stents in place Possible pneumonia on ct abd/pevis CT chest-possible low-grade pneumonitis urology consulted, albaro dominique Palliative care consult for goals of care discussion Pt transitioned to comfort measures only Advanced pancreatic cancer with metastasis Follow-up with heme-onc Elevated LFTs-secondary to metastasis Not a candidate for chemotherapy Has had palliative care evaluation during last admission and wanted to have oncology evaluation and treatment if possible Palliative care consulted for goals of care discussion once more Pt transitioned to comfort measures only Discussed with palliative med on - 10/11/23 - medications adjusted NATE Creatinine 2.06 on admission Creatinine was 1.3 on September 27 IV fluids Avoid nephrotoxic agents Kidney function remains stable Palliative care consult for goals of care discussion Pt transitioned to comfort measures only Anemia Hemoglobin 9 Required PRBC transfusion last admission Aspirin was discontinued last admission Palliative care consult for goals of care discussion Pt transitioned to comfort measures only Hypertension Continue metoprolol succinate Held losartan intravenous Lopressor Palliative care consult for goals of care discussion Pt transitioned to comfort measures only Diabetes Hold metformin Reduce Lantus to 5 units daily as patient currently n.p.o. Sliding scale Palliative care consult for goals of care discussion Pt transitioned to comfort measures only Palliative care consulted for goals of care discussion. Patient transitioned to comfort measures only on 10/03. Pt on 10/12/2023 6:42 AM. Total Time Total Time Spent Total Time Spent (In Minutes): 0 Discharge Plan Discharge Items Patient Disposition: Reason For Visit: ALTERED MENTAL STATUS, NATE Follow-up/Referrals: Mati Sanabria MD [Primary Care Provider] - Medications and DC Order Prescriptions: No Action fluoxetine 40 mg capsule 40 mg PO DAILY clopidogrel 75 mg tablet 75 mg PO DAILY baclofen 10 mg tablet 15 mg PO QID ezetimibe 10 mg tablet 10 mg PO DAILY thiamine HCl (vitamin B1) 100 mg Tablet 100 mg PO DAILY metoprolol tartrate 50 mg tablet 50 mg PO DAILY folic acid 1 mg tablet 1 mg PO DAILY acetaminophen [Tylenol Extra Strength] 500 mg Tablet 500 mg PO DIRECTED PRN (Reason: PAIN/FEVER) diphenhydramine HCl [Benadryl] 25 mg Capsule 25 mg PO Q6H PRN (Reason: Itching) metformin 500 mg tablet extended release 24 hr 500 mg PO BID oxycodone 5 mg tablet 5 mg PO Q6H PRN (Reason: Pain) insulin glargine [Lantus Solostar U-100 Insulin] 100 unit/mL (3 mL) insulin pen 10 unit SUBCUT QAM pantoprazole [Protonix] 40 mg tablet,delayed release (DR/EC) 40 mg PO BID Qty: 60 0RF losartan 50 mg tablet 50 mg PO QAM ondansetron HCl 8 mg tablet 8 mg PO Q8H PRN (Reason: NAUSEA/VOMITING) prochlorperazine maleate 10 mg tablet 10 mg PO Q6H PRN (Reason: NAUSEA/VOMITING) aspirin 81 mg Tablet,Delayed Release (Dr/Ec) 81 mg PO DAILY lidocaine-prilocaine 2.5-2.5 % cream 1 applic topical DIRECTED PRN (Reason: FOR PORT ACCESS/COVER AFTER SCOTT) Krames/Other Patient Handouts: A1C Admission Data Admit Date/Time: 10/02/23 04:43 Attending Provider: Azeem Knox Admit Provider: Tha Lucas Primary Care Provider: Mati Sanabria Other Providers: Tha Lucas; Elissa Arnold
== END 2023-10-12 09:10 | disposition expired | DRG 689 ==
LOC: ED 22:14 → SUATTDRO 10-02 04:43 → 2S 10-02 04:43 → 3E 10-04 17:21
DX: Z79.84 Long term (current) use of oral hypoglycemic drugs; G89.3 Neoplasm related pain (acute) (chronic); D64.9 Anemia, unspecified; I10 Essential (primary) hypertension; Z79.4 Long term (current) use of insulin; C78.7 Secondary malignant neoplasm of liver and intrahepatic bile duct; C25.9 Malignant neoplasm of pancreas, unspecified; E11.9 Type 2 diabetes mellitus without complications; I25.10 Atherosclerotic heart disease of native coronary artery without angina pectoris; J18.9 Pneumonia, unspecified organism; Z79.899 Other long term (current) drug therapy; Z79.02 Long term (current) use of antithrombotics/antiplatelets; N39.0 Urinary tract infection, site not specified; G93.41 Metabolic encephalopathy; N17.9 Acute kidney failure, unspecified; Z51.5 Encounter for palliative care; I69.354 Hemiplegia and hemiparesis following cerebral infarction affecting left non-dominant side